=== PATIENT | male | born 1960 | race Caucasian/White ===

== ENCOUNTER 2025-02-11 18:01 | Inpatient (IN) | payer MEDICAID, OTHER ==
[~2025-02-11] VITALS: Ht 182.9 cm; Wt 68.2 kg
[2025-02-11] MEDS: IPRATROPIUM BROM 0.5 MG/2.5ML INH SOL NEB ONE (19:04)
[2025-02-11] MEDS: ALBUTEROL SULF 2.5 MG/0.5ML(0.5%) NEB SOLN NEB ONE (19:04)
--- NOTE | 2025-02-11 19:05 | ED.PDOC ---
HPI Comments 64-year-old male who came to ER via EMS for shortness of breath. He does have history of hypertension, diabetes, congestive heart failure on home oxygen at 2 L/min. Coming in for worsening abdominal distention and bipedal edema. Went to [facility] however abdominal paracentesis was not done. Worsening of symptoms, associated with shortness of breath, orthopnea, cyanosis, and generalized weakness. On scene patient was saturating 80% on room air. 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 Allergies: Coded Allergies: NO KNOWN ALLERGIES (Unverified , 02/11/25) Information Source: Patient, Emergency Med Personnel Mode of Arrival: EMS Severity: Moderate Past Medical History PAST MEDICAL HISTORY: CHF, DM, HTN Surgical History: Denies all surgeries Family History Family History: Reviewed,noncontributory to illness Social History Smoker: Non-Smoker Alcohol: Denies ETOH Use Drugs: Denies Drug Use Lives In: Home Constitutional: reports: weakness; denies: chills, diaphoresis, fatigue, fever, malaise, sweats, others EENTM: denies: blurred vision, double vision, ear bleeding, ear discharge, ear drainage, ear pain, ear ringing, eye pain, eye redness, hearing loss, mouth pain, mouth swelling, nasal discharge, nose bleeding, nose congestion, nose pain, photophobia, tearing, throat pain, throat swelling, voice changes, others Respiratory: reports: SOB at rest, shortness of breath, SOB with excertion; denies: cough, hemoptysis, orthopnea, stridor, wheezing, others Cardiovascular: reports: edema; denies: chest pain, dizzy spells, diaphoresis, Dyspnea on exertion, irregular heart beat, left arm pain, lightheadedness, palpitations, PND, syncope, others Gastrointestinal: reports: abdomen distended, abdominal pain; denies: blood streaked bowels, constipated, diarrhea, dysphagia, difficulty swallowing, hematemesis, melena, nausea, poor appetite, poor fluid intake, rectal bleeding, rectal pain, vomiting, others Genitourinary: denies: burning, dysuria, flank pain, frequency, hematuria, incontinence, penile discharge, penile sore, pain, testicle pain, testicle swelling, urgency, others Neurological: denies: dizziness, fainting, headache, left sided numbness, left sided weakness, numbness, paresthesia, pre-existing deficit, right sided numbness, right sided weakness, seizure, speech problems, tingling, tremors, weakness, others Musculoskeletal: denies: back pain, gout, joint pain, joint swelling, muscle pain, muscle stiffness, neck pain, others Integumetry: denies: bruises, change in color, change in hair/nails, dryness, laceration, lesions, lumps, rash, wounds, others Allergic/Immunocompromised: denies: Difficulty Healing, Frequent Infections, Hives, Itching, others Hematologic/Lymphatic: denies: anemia, blood clots, easy bleeding, easy bruising, swollen glands, others Endocrine: denies: excessive hunger, excessive sweating, excessive thirst, excessive urination, flushing, intolerance to cold, intolerance to heat, unexplained weight gain, unexplained weight loss, others Psychiatric: denies: anxiety, bipolar disorder, depression, hopeless, panic disorder, schizophrenia, sleepless, suicidal, others Physical Exam General Appearance: No Apparent Distress, Normal HEENT: Normal ENT Inspection, Pharynx Normal, TMs Normal Neck: Full Range of Motion, Non-Tender, Normal, Normal Inspection Respiratory: Chest Non-Tender, Lungs Clear, No Accessory Muscle Use, No Respiratory Distress, Normal Breath Sounds Cardiovascular: No Edema, No JVD, No Murmur, No Gallop, Normal Peripheral Pulses, Regular Rate/Rhythm Breast Exam: Deferred Gastrointestinal: No Organomegaly, Non Tender, No Pulsatile Mass, Normal Bowel Sounds, Soft Genitalia: Deferred Pelvic: Deferred Rectal: Deferred Extremities: No calf tenderness, Normal capillary refill, Normal inspection, Normal range of motion, Non-tender, No pedal edema Musculoskeletal : Apperance: Normal 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 Was a procedure done?: No CP Differential Dx Differential Diagnosis: Angina, Anxiety / Panic Attack, Electrolyte Disorder Differential Diagnosis: CHF Differential Diagnosis: Angina, Chest Wall Pain, Costochondritis, Myocardial Infarction X-Ray, Labs, Meds, VS Vital Signs Date Time Temp Pulse Resp B/P (MAP) Pulse Ox O2 Delivery O2 Flow Rate FiO2 02/11/25 20:53 117/81 02/11/25 19:30 97.9 87 19 122/74 (90) 94 97.9 02/11/25 19:30 87 19 94 Nasal Cannula* 3 32 02/11/25 19:04 20 98 Nasal Cannula* 3 32 02/11/25 18:18 99 02/11/25 18:09 98.1 84 26 126/74 96 98.1 Lab Test 02/11/25 20:39 02/11/25 19:38 02/11/25 18:54 02/11/25 18:53 Range/Units Lactic Acid Level Pending 2.4 *H 0.4-2.0 mmol/L Troponin I High Sensitivity 45 43 </=54 ng/L Blood Gas Specimen Type Venous Blood Gas Sample Site Vbg - n/a Blood Gas Patient Temperature 37.0 Arterial Blood Date Drawn [id number] Charles Test N/a Venous Blood pH 7.355 7.320-7.430 Venous Blood pCO2 at Patient Temp 47.3 38.0-54.0 mmHg Venous Blood pO2 at Patient Temp < 36.5 23.0-48.0 mmHg Venous Blood HCO3 25.8 22.0-29.0 mmol/L Venous Blood Base Excess -0.2 -2.0-3.0 mmol/L Blood Gas Liter Flow 3.00 Blood Gas Modality Nasal cannula FiO2 % 32.0 White Blood Count 8.9 4.4-10.8 10^3/uL Red Blood Count 4.32 L 4.5-5.90 10^6/uL Hemoglobin 13.5 13.5-17.5 g/dL Hematocrit 40.6 L 41.0-53.0 % Mean Corpuscular Volume 93.9 80.0-100.0 fL Mean Corpuscular Hemoglobin 31.4 28.0-32.0 pg Mean Corpuscular Hemoglobin Concent 33.4 32.0-36.0 g/dL Red Cell Distribution Width 15.8 H 11.8-14.3 % Platelet Count 197 140-450 10^3/uL Mean Platelet Volume 9.2 6.9-10.8 fL Neutrophils (%) (Auto) 82.2 H 37.0-80.0 % Lymphocytes (%) (Auto) 7.1 L 10.0-50.0 % Monocytes (%) (Auto) 9.7 0.0-12.0 % Eosinophils (%) (Auto) 0.7 0.0-7.0 % Basophils (%) (Auto) 0.3 0.0-2.0 % Neutrophils # (Auto) 7.3 1.6-8.6 10 ^3/uL Lymphocytes # (Auto) 0.6 0.4-5.4 10 ^3/uL Monocytes # (Auto) 0.9 0-1.3 10 ^3/uL Eosinophils # (Auto) 0.1 0-0.8 10 ^3/uL Basophils # (Auto) 0 0-0.2 10 ^3/uL Nucleated Red Blood Cells 0.1 % Prothrombin Time 13.6 H 9.3-11.8 sec Prothrombin Time INR 1.32 H 0.9-1.15 Activated Partial Thromboplast Time 30.8 24.5-34.5 SEC Sodium Level 137 136-145 mmol/L Potassium Level 4.6 3.5-5.1 mmol/L Chloride Level 104 98-107 mmol/L Carbon Dioxide Level 26 20-31 mmol/L Anion Gap 7 5-15 Blood Urea Nitrogen 37 H 9-23 mg/dL Creatinine 1.39 H 0.700-1.30 mg/dL Glomerular Filtration Rate Calc 57 >90 mL/min BUN/Creatinine Ratio 26.6 H 10.0-20.0 Serum Glucose 102 74-106 mg/dL Calcium Level 8.2 L 8.7-10.4 mg/dL Magnesium Level 2.5 1.6-2.6 mg/dL Total Bilirubin 1.7 H 0.2-1.0 mg/dL Aspartate Amino Transferase (AST) 84 H 13-40 U/L Alanine Aminotransferase (ALT) 193 H 7-40 U/L Alkaline Phosphatase 152 H 46-116 U/L B-Type Natriuretic Peptide 1809.69 0-100 pg/mL Total Protein 6.3 5.7-8.2 g/dL Albumin 3.3 3.2-4.8 g/dL Current Medications Medications (Trade) Dose Ordered Sig/Geraldo Route Start Time Stop Time Status Last Admin Aspirin 162 mg ONCE ONCE PO 02/11/25 18:45 02/11/25 18:46 DC 02/11/25 20:53 Furosemide (Lasix Injection) 40 mg ONCE ONCE IV 02/11/25 18:45 02/11/25 18:46 DC 02/11/25 20:53 Albuterol (Ventolin Medneb) 5 mg ONCE ONCE NEB 02/11/25 18:45 02/11/25 18:46 DC 02/11/25 19:04 Ipratropium [place] (Atrovent Medneb) 0.5 mg ONCE ONCE NEB 02/11/25 18:45 02/11/25 18:46 DC 02/11/25 19:04 Time of 1ST Reevaluation: 18:45 Reevaluation 1ST: Unchanged Patient Education/Counseling: Diagnosis, Treatment Family Education/Counseling: No Family Present SEPSIS Sepsis Screen Date sepsis recognized/suspect: Feb 11, 2025 Time Sepsis recognized/suspect: 1808 Recent Procedure: No On Antibiotic Therapy: No Respiratory Rate >20: Yes Heart Rate >90: No Temp<36 C (96.8 F) or >38.3 C: No SBP <90 or MAP <65 mmHG: No New Acute Mental Status Change: No Is the patient on CPAP, BIPAP,: No Physician Orders Electrocardigram (02/11/25 18:14) Electrocardigram (02/11/25 19:14) Electrocardigram (02/11/25 21:14) Chest Portable (02/11/25 18:40) Venous Blood Gas (02/11/25 18:40) Blood Culture (02/11/25 18:40) Vital Signs Date Time Temp Pulse Resp B/P (MAP) Pulse Ox O2 Delivery O2 Flow Rate FiO2 02/11/25 20:53 117/81 02/11/25 19:30 97.9 87 19 122/74 (90) 94 97.9 02/11/25 19:30 87 19 94 Nasal Cannula* 3 32 02/11/25 19:04 20 98 Nasal Cannula* 3 32 02/11/25 18:18 99 02/11/25 18:09 98.1 84 26 126/74 96 98.1 Laboratory Tests Test 02/11/25 18:53 02/11/25 20:39 Lactic Acid Level 2.4 mmol/L (0.4-2.0) *H Pending White Blood Count 8.9 10^3/uL (4.4-10.8) Medications Medications Dose Ordered Sig/Geraldo Route Start Time Stop Time Status Last Admin Dose Admin Albuterol 5 mg ONCE ONCE NEB 02/11/25 18:45 02/11/25 18:46 DC 02/11/25 19:04 Aspirin 162 mg ONCE ONCE PO 02/11/25 18:45 02/11/25 18:46 DC 02/11/25 20:53 Furosemide 40 mg ONCE ONCE IV 02/11/25 18:45 02/11/25 18:46 DC 02/11/25 20:53 Ipratropium [place] 0.5 mg ONCE ONCE NEB 02/11/25 18:45 02/11/25 18:46 DC 02/11/25 19:04 Departure 1 Departure Time of Disposition: 20:55 Impression: Primary Impression: Respiratory failure with hypoxia Additional Impressions: COPD exacerbation Pneumonitis Congestive heart failure Acute renal injury Disposition: ADMITTED INPATIENT Admit to: Tele Condition: Guarded Discharged With: Self Comments 64-year-old male with a history of both COPD and CHF now with shortness of breath. Oxygen saturation was 89% on room air prior to arrival but per EMS. Patient was given Lasix and a breathing treatment. His lactic acid slightly elevated 2.4. He has acute renal injury with BUN creatinine 37 and 1.39. Patient was given then antibiotics Rocephin and azithromycin for pneumonitis. Patient will need to be admitted for supportive care and further workup Critical Care Note Critical Care Time?: Yes (35 min-critical care time only) Stability Stability form required: No Heart Score Heart Score: Heart Score Response (Comments) Value History Moderate Suspicious 1 EKG Repolarization Disturb 1 Age 45-64 1 Risk Factors >3 or Hx ASHD 2 Troponin Normal limit 0 Total 5 I personally scribed for ROD BANUELOS MD ([email or web address]) on 02/11/25 at 19:05. Electronically submitted by Philippe Chew ([email or web address]). ROD BANUELOS MD Feb 11, 2025 19:05
[2025-02-11 19:09] LABS: Hematocrit 40.6 % (41.0-53.0); Hemoglobin 13.5 g/dL (13.5-17.5); Mean Corpuscular Hemoglobin 31.4 pg (28.0-32.0); Mean Corpuscular Volume 93.9 fL (80.0-100.0); Nucleated Red Blood Cells % 0.1 %
[2025-02-11 19:24] LABS: INR 1.32 (0.9-1.15); Partial Thromboplastin Time 30.8 SEC (24.5-34.5); Prothrombin Time 13.6 sec (9.3-11.8)
[2025-02-11 19:25] LABS: Albumin 3.3 g/dL (3.2-4.8); Anion Gap 7 (5-15); BUN/Creatinine Ratio 26.6 (10.0-20.0); Carbon Dioxide 26 mmol/L (20-31); Chloride 104 mmol/L (98-107); Glucose 102 mg/dL (74-106); Magnesium 2.5 mg/dL (1.6-2.6); Potassium 4.6 mmol/L (3.5-5.1); Sodium 137 mmol/L (136-145); Total Protein 6.3 g/dL (5.7-8.2)
[2025-02-11 19:30] VITALS: PULSE 87; RESP 19; O2SAT 94
[2025-02-11 19:31] LABS: Alanine Aminotransferase 193 U/L (7-40); Alkaline Phosphatase 152 U/L (46-116); Bilirubin, Total 1.7 mg/dL (0.2-1.0); Blood Urea Nitrogen 37 mg/dL (9-23); Calcium 8.2 mg/dL (8.7-10.4)
[2025-02-11 19:44] LABS: Lactic Acid w/Reflex 2.4 mmol/L (0.4-2.0)
--- NOTE | 2025-02-11 20:12 | DVH ---
CHEST RADIOGRAPH Indication: SOB Technique: Single frontal view of the chest was obtained Comparison: None FINDINGS: Lines and Tubes: None Lungs: Increased Airspace disease right lower lobe with small right pleural effusion. Pleura: No effusion. No pneumothorax. Cardiomediastinal contours: Cardiomegaly Bones: No acute osseous abnormality. IMPRESSION: 1. No acute cardiopulmonary disease. 2. Findings may represent pneumonia although can not entirely exclude congestive failure.
[2025-02-11] MEDS: FUROSEMIDE 40 MG/4 ML VIAL IV ONE (20:53)
[2025-02-11] MEDS: MORPHINE SULFATE 4 MG/ML SYR/VIAL IV ONE ×2 (21:03→21:04)
[2025-02-11] MEDS: AZITHROMYCIN 500MG/250ML 250 ML IV ONE (21:09)
[2025-02-11] MEDS ORDERED: MORPHINE SULFATE INJ 2 MG/ml SYRG IV PRN (22:15)
[2025-02-11] MEDS ORDERED: NITROGLYCERIN 0.4 MG SL TAB SL PRN (22:15)
[2025-02-11] MEDS ORDERED: ONDANSETRON HCL 4 MG/2 ML VIAL IV PRN (22:15)
[2025-02-11] MEDS ORDERED: DOCUSATE SOD 100 MG CAP PO PRN (22:15)
--- NOTE | 2025-02-11 22:28 | DVHHP2 ---
History of Present Illness Reason for Visit: Acute respiratory distress with hypoxia History of Present Illness The patient is a 64-year-old male with past medical history of CHF, hypertension, and diabetes mellitus who presented to [facility] ED with complaint of abdominal distention. Patient reports that he has been experiencing abdominal distention associated with shortness of breaths, bipedal edema, orthopnea, cyanosis, generalized weakness, getting worse that prompted this visit. Patient was seen at [facility] for similar symptoms however abdominal paracentesis was not done. Patient was seen and evaluated in the ED, laboratory data shows WBC 6.9, platelets 197, sodium 137, potassium 4.6, BUN 37, creatinine 1.39, GFR 57, glucose 102, calcium 8.2, BNP 1809.69, lactic acid 2.1, total bilirubin 1.7, AST 84, ALT 193, alkaline phos 152, troponin 43, blood pressure 106/81, heart rate 74, temperature 97.9 F, O2 saturation 94% on oxygen. Chest x-ray revealing pneumonia although can not entirely exclude congestive failure, no acute cardiopulmonary disease. Patient was started on IV Lasix, please see medication orders section in the computer. On my assessment, patient denied chest pain, no headache, dizziness, diaphoresis, currently on oxygen, no diarrhea, nausea, vomiting, fever, no chills. Patient was admitted for further evaluation and medical management. Past Medical History CHF, DM, HTN Past Surgical History Denies all surgeries Family History Reviewed, noncontributory to the management of this case. Past Social History The patient lives at home, denies smoking, alcohol or illicit drugs abuse. Review of Systems Constitutional: Yes: Weakness; No: Fever, Chills, Sweats, Malaise, Other Eyes: No: Pain, Vision change, Conjunctivae inflammation, Eyelid inflammation, Other, Redness ENT: No: Ear pain, Ear discharge, Nose pain, Nose discharge, Nose congestion, Mouth pain, Mouth swelling, Throat pain, Throat swelling, Other Respiratory: Shortness of breath, SOB with excertion, Other (SOB at rest); No: Cough, Dry, Wheezing, Hemoptysis, Pleuritic Pain, Sputum, Wheezing Cardiovascular: No: Chest Pain, Palpitations, Orthopnea, Paroxysmal Noc. Dyspnea, Edema, Lt Headedness, Other Gastrointestinal: Abdominal Pain, Other (Abdominal distention); No: Nausea, Vomiting, Diarrhea, Constipation, Melena, Hematochezia Genitourinary: No Dysuria, No Frequency, No Incontinence, No Hematuria, No Retention, No Other Musculoskeletal: No: other, neck pain, shoulder pain, arm pain, back pain, hand pain, leg pain, foot pain Skin: Other (Lower extremity open wounds); No: Rash, Lesions, Jaundice, Bruising Neurological: No: Weakness, Numbness, Incoordination, Change in speech, Confusion, Seizures, Other Allergies: Coded Allergies: NO KNOWN ALLERGIES (Unverified , 02/11/25) Exam Vital Signs Vital Signs Date Time Temp Pulse Resp B/P (MAP) Pulse Ox O2 Delivery O2 Flow Rate FiO2 02/11/25 21:33 73 22 106/81 02/11/25 19:30 97.9 94 97.9 02/11/25 19:30 Nasal Cannula* 3 32 General Appearance: Alert, Oriented X3, Cooperative, No acute distress HEENT: Atraumatic, PERRLA, EOMI, Mucous membr. moist/pink Respiratory: Normal air movement, Other (Diminished breath sounds) Cardiovascular: Regular rate, Normal S1, Normal S2, No murmurs Abdominal: Normal bowel sounds, Soft, No tenderness, No hepatospenomegaly, No masses Extremities: No clubbing, Normal pulses, No tenderness/swelling, Other (Lower extremity edema) Skin: No rashes, No significant lesion Neuro: Normal speech, Normal tone, Sensation intact, Cranial nerves 3-12 NL, Reflexes 2+, Other (Generalized weakness) Psych/Mental Status: Mental status NL, Mood NL Labs/Xrays Labs Test 02/11/25 20:39 02/11/25 19:38 02/11/25 18:54 02/11/25 18:53 Range/Units Lactic Acid Level 2.1 *H 0.4-2.0 mmol/L Troponin I High Sensitivity 45 </=54 ng/L Blood Gas Specimen Type Venous Blood Gas Sample Site Vbg - n/a Blood Gas Patient Temperature 37.0 Arterial Blood Date Drawn [id number] Charles Test N/a Venous Blood pH 7.355 7.320-7.430 Venous Blood pCO2 at Patient Temp 47.3 38.0-54.0 mmHg Venous Blood pO2 at Patient Temp < 36.5 23.0-48.0 mmHg Venous Blood HCO3 25.8 22.0-29.0 mmol/L Venous Blood Base Excess -0.2 -2.0-3.0 mmol/L Blood Gas Liter Flow 3.00 Blood Gas Modality Nasal cannula FiO2 % 32.0 White Blood Count 8.9 4.4-10.8 10^3/uL Red Blood Count 4.32 L 4.5-5.90 10^6/uL Hemoglobin 13.5 13.5-17.5 g/dL Hematocrit 40.6 L 41.0-53.0 % Mean Corpuscular Volume 93.9 80.0-100.0 fL Mean Corpuscular Hemoglobin 31.4 28.0-32.0 pg Mean Corpuscular Hemoglobin Concent 33.4 32.0-36.0 g/dL Red Cell Distribution Width 15.8 H 11.8-14.3 % Platelet Count 197 140-450 10^3/uL Mean Platelet Volume 9.2 6.9-10.8 fL Neutrophils (%) (Auto) 82.2 H 37.0-80.0 % Lymphocytes (%) (Auto) 7.1 L 10.0-50.0 % Monocytes (%) (Auto) 9.7 0.0-12.0 % Eosinophils (%) (Auto) 0.7 0.0-7.0 % Basophils (%) (Auto) 0.3 0.0-2.0 % Neutrophils # (Auto) 7.3 1.6-8.6 10 ^3/uL Lymphocytes # (Auto) 0.6 0.4-5.4 10 ^3/uL Monocytes # (Auto) 0.9 0-1.3 10 ^3/uL Eosinophils # (Auto) 0.1 0-0.8 10 ^3/uL Basophils # (Auto) 0 0-0.2 10 ^3/uL Nucleated Red Blood Cells 0.1 % Prothrombin Time 13.6 H 9.3-11.8 sec Prothrombin Time INR 1.32 H 0.9-1.15 Activated Partial Thromboplast Time 30.8 24.5-34.5 SEC Sodium Level 137 136-145 mmol/L Potassium Level 4.6 3.5-5.1 mmol/L Chloride Level 104 98-107 mmol/L Carbon Dioxide Level 26 20-31 mmol/L Anion Gap 7 5-15 Blood Urea Nitrogen 37 H 9-23 mg/dL Creatinine 1.39 H 0.700-1.30 mg/dL Glomerular Filtration Rate Calc 57 >90 mL/min BUN/Creatinine Ratio 26.6 H 10.0-20.0 Serum Glucose 102 74-106 mg/dL Calcium Level 8.2 L 8.7-10.4 mg/dL Magnesium Level 2.5 1.6-2.6 mg/dL Total Bilirubin 1.7 H 0.2-1.0 mg/dL Aspartate Amino Transferase (AST) 84 H 13-40 U/L Alanine Aminotransferase (ALT) 193 H 7-40 U/L Alkaline Phosphatase 152 H 46-116 U/L B-Type Natriuretic Peptide 1809.69 0-100 pg/mL Total Protein 6.3 5.7-8.2 g/dL Albumin 3.3 3.2-4.8 g/dL PATIENT: SHENG BELTRAN ACCT: [id number] UNIT: [id number] : 1960 LOC: ER ROOM / BED: / AGE / SEX: 64 / M ADM STATUS: REG ER SERVICE 39 ORDERING PHYSICIAN: ROD BANUELOS MD PROCEDURE(s): CXRP - CHEST PORTABLE REASON: SOB ORDER NUMBER(s): [id number], ACCESSION NUMBER(s): [id number] CHEST RADIOGRAPH Indication: SOB Technique: Single frontal view of the chest was obtained Comparison: None FINDINGS: Lines and Tubes: None Lungs: Increased Airspace disease right lower lobe with small right pleural effusion. Pleura: No effusion. No pneumothorax. Cardiomediastinal contours: Cardiomegaly Bones: No acute osseous abnormality. IMPRESSION: 1. No acute cardiopulmonary disease. 2. Findings may represent pneumonia although can not entirely exclude congestive failure. SEPSIS Sepsis Screen Date sepsis recognized/suspect: Feb 11, 2025 Time Sepsis recognized/suspect: 1947 Recent Procedure: No On Antibiotic Therapy: No Respiratory Rate >20: No Heart Rate >90: No Temp<36 C (96.8 F) or >38.3 C: No SBP <90 or MAP <65 mmHG: No New Acute Mental Status Change: No Is the patient on CPAP, BIPAP,: No Physician Orders Electrocardigram (02/11/25 18:14) Electrocardigram (02/11/25 19:14) Electrocardigram (02/11/25 21:14) Chest Portable (02/11/25 18:40) Venous Blood Gas (02/11/25 18:40) Blood Culture (02/11/25 18:40) Azithromycin 500mg/250ml (Zithromax 500m (02/11/25 21:00) Aspirin Chewable Tablet (02/12/25 10:00) Carvedilol Tablet (Coreg Tablet) (02/12/25 10:00) Azithromycin 500mg/250ml (Zithromax 500m (02/12/25 10:00) Ceftriaxone Ivpb Rocephin (02/12/25 09:00) Albuterol Medneb (Ventolin Medneb) (02/11/25 22:15) Ipratropium Medneb (Atrovent Medneb) (02/11/25 22:15) Furosemide Injection (Lasix Injection) (02/12/25 10:00) Glucose Blood (Accu-Chek Comfort Curve T (02/12/25 07:00) Mild Sliding Scale (02/12/25 07:00) Dextrose 50% Syringe (02/11/25 22:15) Admit (02/11/25 22:15) Allergies (02/11/25 22:15) Code Status (02/11/25 22:15) Sodium Chloride Lock (Saline Lock Ns) (02/12/25 06:00) Oxygen Per Hour (02/11/25 22:15) Hydrocodone-Acet 5/325mg Tab ([place] 5/32 (02/11/25 22:15) Ondansetron Hcl (Zofran) (02/11/25 22:15) Docusate Sodium Capsule (Colace Capsule) (02/11/25 22:15) Complete Blood Count (02/12/25 04:00) Comprehensive Metabolic Panel (02/12/25 04:00) Cardiac Diet-2gna,Lofat,Lochol (02/12/25 Breakfast) Echo 2d Mode Cardiac Dop (02/11/25 22:15) Condition: Serious (02/11/25 22:15) Acetaminophen Tablet (Tylenol Tablet) (02/11/25 22:15) Bedrest With Bathroom Privileg (02/11/25 22:15) Maintain Bed Rest (02/11/25 22:15) Sequential Compression Device (02/11/25 ) Nitroglycerin Sublingual (Ntrostat Subli (02/11/25 22:15) Morphine Sulfate Injection (02/11/25 22:15) Stat Ekg For Chest Pain (02/11/25 22:15) Notify Of Changes From Base (02/11/25 22:15) Cut Tobacco Bulker For 24 Hours (02/11/25 22:15) Emergency Dysrhythmia Protocol (02/11/25 22:15) Rhythm Strips Once Every Shift (02/11/25 22:15) Oxygen By Nasal Cannula (02/11/25 22:15) Tamsulosin Hydrochloride (Flomax) (02/12/25 18:00) Vital Signs Date Time Temp Pulse Resp B/P (MAP) Pulse Ox O2 Delivery O2 Flow Rate FiO2 02/11/25 21:33 73 22 106/81 02/11/25 21:03 81 19 117/81 02/11/25 20:53 117/81 02/11/25 19:30 97.9 87 19 122/74 (90) 94 97.9 02/11/25 19:30 87 19 94 Nasal Cannula* 3 32 02/11/25 19:04 20 98 Nasal Cannula* 3 32 02/11/25 18:18 99 02/11/25 18:09 98.1 84 26 126/74 96 98.1 Laboratory Tests Test 02/11/25 18:53 02/11/25 20:39 Lactic Acid Level 2.4 mmol/L (0.4-2.0) *H 2.1 mmol/L (0.4-2.0) *H White Blood Count 8.9 10^3/uL (4.4-10.8) Medications Medications Dose Ordered Sig/Geraldo Route Start Time Stop Time Status Last Admin Dose Admin Albuterol 5 mg ONCE ONCE NEB 02/11/25 18:45 02/11/25 18:46 DC 02/11/25 19:04 5 MG Aspirin 162 mg ONCE ONCE PO 02/11/25 18:45 02/11/25 18:46 DC 02/11/25 20:53 162 MG Azithromycin 250 ml @ 125 mls/hr ONCE ONCE IV 02/11/25 21:00 02/11/25 22:59 02/11/25 21:09 125 MLS/HR Ceftriaxone Sodium 50 ml @ 100 mls/hr ONCE ONCE IV 02/11/25 21:00 02/11/25 21:29 DC 02/11/25 21:03 100 MLS/HR Furosemide 40 mg ONCE ONCE IV 02/11/25 18:45 02/11/25 18:46 DC 02/11/25 20:53 40 MG Ipratropium [place] 0.5 mg ONCE ONCE NEB 02/11/25 18:45 02/11/25 18:46 DC 02/11/25 19:04 0.5 MG Morphine Sulfate 4 mg ONCE ONCE IV 02/11/25 21:00 02/11/25 21:01 DC 02/11/25 21:03 4 MG Assessment/Plan Assessment/Plan Acute respiratory failure with hypoxia Pneumonitis Congestive heart failure Acute renal injury COPD with acute exacerbation Elevated liver enzymes Generalized weakness Plan 1. Admit to telemetry unit 2. Breathing treatment 3. Pain control management 4. IV antibiotic management 5. Management of fluids and electrolytes 6. Consultation for hospitalist/wound care 7. Diagnostic test chest x-ray 8. DVT prophylaxis-on aspirin 9. Repeat labs CBC, CMP in a.m. 10. Home medication reviewed and reconciled 11. Continue with current medical management 12. Treatment plan discussed with patient and RN. Patient verbalized understanding. Plan discussed with: Patient, Other (RN) My Orders Orders - LORRI NATARAJAN DNP Procedure Category Date Status Time Aspirin Chewable PHA 02/12/25 Verified Tablet 10:00 Carvedilol Tablet PHA 02/12/25 Verified (Coreg Tablet) 10:00 Azithromycin PHA 02/12/25 Verified 500mg/250ml 10:00 Ceftriaxone Ivpb PHA 02/12/25 Verified Rocephin 09:00 Albuterol Medneb PHA 02/11/25 Verified (Ventolin Medneb) 22:15 Ipratropium Medneb PHA 02/11/25 Verified (Atrovent Medneb) 22:15 Furosemide Injection PHA 02/12/25 Verified (Lasix Injection) 10:00 Glucose Blood PHA 02/12/25 Verified (Accu-Chek Comfort 07:00 Mild Sliding Scale PHA 02/12/25 Verified 07:00 Dextrose 50% Syringe PHA 02/11/25 Verified 22:15 Admit ADMIT 02/11/25 Verified 22:15 Allergies ANTONY 02/11/25 Verified 22:15 Code Status CODE 02/11/25 Verified 22:15 Sodium Chloride Lock [facility] 02/12/25 Verified (Saline Lock Ns) 06:00 Oxygen Per Hour RT 02/11/25 Verified 22:15 Hydrocodone-Acet [facility] 02/11/25 Verified 5/325mg Tab ([place] 22:15 Ondansetron Hcl [facility] 02/11/25 Verified (Zofran) 22:15 Docusate [address]odium [facility] 02/11/25 Verified Capsule (Colace 22:15 Complete Blood Count LAB 02/12/25 Verified 04:00 Comprehensive LAB 02/12/25 Verified Metabolic Panel 04:00 Cardiac DIET 02/12/25 Verified Diet-2gna,Lofat,Lochol Breakfast Echo 2d Mode Cardiac US 02/11/25 Verified DOP 22:15 Condition: Serious [facility] 02/11/25 Verified 22:15 Acetaminophen Tablet [facility] 02/11/25 Verified (Tylenol Tablet) 22:15 Bedrest With Bathroom [facility] 02/11/25 Verified Privileg 22:15 Maintain Bed Rest [facility] 02/11/25 Verified 22:15 Sequential [facility] 02/11/25 Verified Compression Device Nitroglycerin [facility] 02/11/25 Verified Sublingual (Ntrostat 22:15 Morphine Sulfate [facility] 02/11/25 Verified Injection 22:15 Stat Ekg For Chest [facility] 02/11/25 Verified Pain 22:15 Notify Md Of Changes [facility] 02/11/25 Verified From Base 22:15 Cut Tobacco Bulker For [facility] 02/11/25 Verified 24 Hours 22:15 Emergency Dysrhythmia [facility] 02/11/25 Verified Protocol 22:15 Rhythm Strips Once [facility] 02/11/25 Verified Every Shift 22:15 Oxygen By Nasal 02/11/25 Verified Cannula 22:[address] [facility] 02/12/25 Verified Hydrochloride (Flomax) 18:00 Problem List: (1) Acute respiratory failure with hypoxia (2) Pneumonitis (3) Congestive heart failure (4) Acute renal injury (5) COPD with acute exacerbation (6) Elevated liver enzymes (7) Generalized weakness Date of Service: Feb 11, 2025 Billing Provider: LORRI NATARAJAN DNP Common Visit Codes: [id number] INP/OBS CARE (HIGH) LORRI NATARAJAN DNP Feb 11, 2025 22:28
[2025-02-11] MEDS: ROCURONIUM 10MG/ML 10ML VIAL IV ONE ×2 (22:35→22:36)
[2025-02-11] MEDS: ETOMIDATE (2MG/ML) 20ML VIAL IV ONE ×2 (22:35→22:36)
[2025-02-11 23:05] VITALS: BP 106/81; PULSE 89; RESP 20; TEMP 97.9; O2SAT 99
[2025-02-11 23:30] VITALS: PULSE 99; RESP 20; O2SAT 99
[2025-02-11] MEDS: IPRATROPIUM BROM 0.5 MG/2.5ML INH SOL NEB PRN (23:30)
[2025-02-11] MEDS: ALBUTEROL SULF 2.5 MG/0.5ML(0.5%) NEB SOLN NEB PRN (23:30)
[2025-02-11 23:38] VITALS: PULSE 97; RESP 20; O2SAT 100
[2025-02-12 02:15] LABS: Hematocrit 43.9 % (41.0-53.0); Hemoglobin 14.3 g/dL (13.5-17.5); Mean Corpuscular Hemoglobin 31.1 pg (28.0-32.0); Mean Corpuscular Volume 95.3 fL (80.0-100.0); Nucleated Red Blood Cells % 0.1 %
[2025-02-12 02:53] LABS: Albumin 3.4 g/dL (3.2-4.8); Anion Gap 9 (5-15); BUN/Creatinine Ratio 30.8 (10.0-20.0); Carbon Dioxide 26 mmol/L (20-31); Chloride 101 mmol/L (98-107); Glucose 104 mg/dL (74-106); Potassium 4.7 mmol/L (3.5-5.1); Total Protein 6.3 g/dL (5.7-8.2)
[2025-02-12 02:55] LABS: Alanine Aminotransferase 181 U/L (7-40); Alkaline Phosphatase 153 U/L (46-116); Bilirubin, Total 2.0 mg/dL (0.2-1.0); Blood Urea Nitrogen 41 mg/dL (9-23); Calcium 8.3 mg/dL (8.7-10.4); Sodium 136 mmol/L (136-145)
[2025-02-12] MEDS: HYDROcodone-ACET 5/325MG TAB PO PRN (03:29)
[2025-02-12] MEDS: SODIUM CHLOR 0.9% PF (SALINE LOCK) 10ML VIAL/SYR IV SCH (06:02)
[2025-02-12 06:48] VITALS: O2SAT 98
[2025-02-12] MEDS: InsuLIN REG 1unit/0.01ml Soln (100units/ml) SC SCH (06:57)
[2025-02-12] MEDS: ACCU-CHEK COMFORT CURVE STRIP VI SCH (06:58)
[2025-02-12 07:15] VITALS: PULSE 80; RESP 15; O2SAT 100
[2025-02-12] MEDS: CARVEDILOL 3.125 MG TAB PO SCH (10:35)
[2025-02-12] MEDS: FAMOTIDINE (10MG/ML) 2ML VL IV SCH (10:37)
[2025-02-12] MEDS: FUROSEMIDE 40 MG/4 ML VIAL IV SCH (10:37)
--- NOTE | 2025-02-12 12:23 | DVHPN2 ---
Subjective The patient is seen and examined at bedside. Still had shortness for breath and wheezing Reviewed: Care Plan, H&P, Labs, Medications, Previous Orders, Radiology Changes from previous H/P or p: No Changes Eyes: No Pain, No Vision change, No Conjunctivae inflammation, No Eyelid inflammation, No Other, No Redness ENT: No Ear pain, No Ear discharge, No Nose pain, No Nose discharge, No Nose congestion, No Mouth pain, No Mouth swelling, No Throat pain, No Throat swelling, No Other Cardiovascular: No Chest Pain, No Palpitations, No Orthopnea, No Paroxysmal Noc. Dyspnea, No Edema, No Lt Headedness, No Other Respiratory: No Cough, No Dry; Shortness of breath, SOB with excertion; No Wheezing, No Hemoptysis, No Pleuritic Pain, No Sputum; Other (SOB at rest) Gastrointestinal: No Nausea, No Vomiting; Abdominal Pain; No Diarrhea, No Constipation, No Melena, No Hematochezia; Other (Abdominal distention) Genitourinary: No Dysuria, No Frequency, No Incontinence, No Hematuria, No Retention, No Other Musculoskeletal: No other, No neck pain, No shoulder pain, No arm pain, No back pain, No hand pain, No leg pain, No foot pain Skin: No Rash, No Lesions, No Jaundice, No Bruising; Other (Lower extremity open wounds) Objective Vitals Vital Signs Date Time Temp Pulse Resp B/P (MAP) Pulse Ox O2 Delivery O2 Flow Rate FiO2 02/12/25 10:47 98.2 80 16 122/91 (101) 99 98.2 02/12/25 07:15 Nasal Cannula* 4 36 Intake/Output Intake and Output 02/12/25 07:00 Intake Total 325 ml Output Total 400 ml Balance -75 ml Intake Oral 100 ml IV Total 225 ml Output Urine Total 400 ml General Appearance: Alert, Oriented X3, Cooperative, No acute distress HEENT: Atraumatic, PERRLA, EOMI, Mucous membr. moist/pink Neck: Supple Lungs: Clear to auscultation, Normal air movement Cardiovascular: Regular rate, Normal S1, Normal S2, No murmurs, Gallops, Rubs Abdomen: Normal bowel sounds, Soft, No tenderness Neuro: Cranial nerves 3-12 NL Psych/Mental Status: Mental status NL Medications Current Medications Medications Dose Ordered Sig/Geraldo Route Start Time Stop Time Status Last Admin Dose Admin Carvedilol 3.125 mg Q12HR PO 02/12/25 10:00 02/12/25 10:35 3.125 MG Azithromycin 250 ml @ 125 mls/hr Q24H IV 02/12/25 21:00 Ceftriaxone Sodium 50 ml @ 100 mls/hr Q24H IV 02/12/25 21:00 Albuterol 2.5 mg Q4HPRN PRN NEB 02/11/25 22:15 02/11/25 23:30 2.5 MG Ipratropium [place] 0.5 mg Q4HPRN PRN NEB 02/11/25 22:15 02/11/25 23:30 0.5 MG Furosemide 40 mg DAILY IV 02/12/25 10:00 02/12/25 10:37 40 MG Diagnostic Test (Pha) 1 strip ACHS 02/12/25 07:00 02/12/25 06:58 1 STRIP Insulin Human Regular ACHS SC 02/12/25 07:00 Dextrose 50 ml UD PRN IV 02/11/25 22:15 Sodium Chloride 10 ml Q8HR IV 02/12/25 06:00 02/12/25 06:02 10 ML Acetaminophen/ Hydrocodone Bitart 1 tab Q4HP PRN PO 02/11/25 22:15 02/12/25 03:29 1 TAB Ondansetron HCl 4 mg Q4HP PRN IV 02/11/25 22:15 Docusate Sodium 100 mg BIDPRN PRN PO 02/11/25 22:15 Acetaminophen 650 mg Q6HP PRN PO 02/11/25 22:15 Nitroglycerin 0.4 mg Q5MINP PRN SL 02/11/25 22:15 Morphine Sulfate 2 mg Q30M PRN IV 02/11/25 22:15 Tamsulosin HCl 0.4 mg QPM PO 02/12/25 18:00 Aspirin 81 mg DAILY PO 02/12/25 10:00 02/12/25 10:35 81 MG Famotidine 20 mg DAILY IV 02/12/25 10:00 02/12/25 10:37 20 MG Laboratory Results Laboratory Tests 02/12/25 02:01 Chemistry Test 02/11/25 18:53 02/12/25 02:01 Albumin 3.3 g/dL (3.2-4.8) 3.4 g/dL (3.2-4.8) Calcium Level 8.2 mg/dL (8.7-10.4) L 8.3 mg/dL (8.7-10.4) L Magnesium Level 2.5 mg/dL (1.6-2.6) Total Protein 6.3 g/dL (5.7-8.2) 6.3 g/dL (5.7-8.2) Coagulation Test 02/11/25 18:53 Prothrombin Time 13.6 sec (9.3-11.8) H Prothrombin Time INR 1.32 (0.9-1.15) H Activated Partial Thromboplast Time 30.8 SEC (24.5-34.5) Cardiac Markers Test 02/11/25 18:53 B-Type Natriuretic Peptide 1809.69 pg/mL (0-100) LFT Test 02/11/25 18:53 02/12/25 02:01 Alanine Aminotransferase (ALT) 193 U/L (7-40) H 181 U/L (7-40) H Alkaline Phosphatase 152 U/L (46-116) H 153 U/L (46-116) H Aspartate Amino Transferase (AST) 84 U/L (13-40) H 74 U/L (13-40) H Total Bilirubin 1.7 mg/dL (0.2-1.0) H 2.0 mg/dL (0.2-1.0) H Blood Gas Results Test 02/11/25 18:54 FiO2 % 32.0 Labs and/or images reviewed: Labs reviewed by me Assessment/Plan Assessment/Plan Acute respiratory failure with hypoxia Pneumonia secondary to Gram-positive Gram-negative bacteria Congestive heart failure Acute renal injury COPD Elevated liver enzymes Generalized weakness Plan Continuing current management. Continuing with IV antibiotic Rocephin and Zithromax. Continuing with Lasix. We will monitor kidney function. Continuing with oxygen support to keep saturation oxygen above 92% This medical document was created using an electronic medical record system with [employer] direct computerized dictation system. Although this document has been carefully reviewed, there may still be some phonetic and typographical errors. These areas are purely typographical due to imperfections of the software programs, and do not reflect any compromise in the patient's medical care. Plan discussed with: Patient Date of Service: Feb 12, 2025 Billing Provider: RAYRAY CLINE MD Common Visit Codes: [id number] INP/OBS CARE(HIGH) RAYRAY CLINE MD Feb 12, 2025 12:23
--- NOTE | 2025-02-12 14:14 | DVHSR ---
APPROVED REPORT EXAM: Two-dimensional and M-mode echocardiogram with Doppler and color Doppler. Blood Pressure: 105/78 mmHg INDICATION CHF Exacerbation RISK FACTORS Height: 6', Weight: 176 DIMENSIONS LVDd 6.6 (3.8-5.7cm) LA (2D) 5.2 (1.9-4.0cm) Aortic Root 3.4 (2.0-3.7cm) LVDs 6.5 (2.5-4.0cm) LA (MM) (1.9-4.0cm) Aortic Cusp Exc 1.8 (1.5-2.0cm) EF (%) 5.0 (55-70%) Rt. Atrium 5.7 (1.9-4.0cm) Asc. Aorta cm IVSd 0.9 (0.7-1.1cm) RV (D) (1.8-2.4cm) PWd 1.0 (0.7-1.1cm) Mitral Valve Mitral Mitral Stenosis E wave 0.60m/s MV Mean GR. mmHg A wave 0.50m/s MV Peak GR. mmHg E/A ratio 1.2 2D MVA cm2 Aortic Valve Aortic Valve Aortic Stenosis V1 0.20m/s AO Mean GR. 1mmHg V2 0.70m/s AO Peak GR. 2mmHg LVOT Diameter 2.3 (1.8-2.4cm) Doppler ALEISHA 1.19cm2 AI P 1/2 Time 407.59ms Pulmonic Valve V2 0.30m/s Tricuspid Valve TR Velocity 1.90m/s RVSP 20mmHg Conclusion lvef <20% dilated end stage HF RV dysfunction biatrial enlargement mild MR could be worse moderate tricupsid regurg
[2025-02-12] MEDS: TAMSULOSIN HYDROCHLORIDE 0.4 MG CAP PO SCH (17:42)
[2025-02-12 19:30] VITALS: O2SAT 98
[2025-02-12] MEDS: AZITHROMYCIN 500MG/250ML 250 ML IV SCH (21:19)
--- NOTE | 2025-02-12 21:29 | DVHINCON2 ---
Date of service: Feb 12, 2025 Referring Physician Jeremy Hull Reason for Consultation Elevated liver tests History of Present Illness The patient is a 64-year-old male with past medical history of CHF, hypertension, and diabetes mellitus who presented to [facility] ED with complaint of abdominal distention. Patient reports that he has been experiencing abdominal distention associated with shortness of breaths, bipedal edema, orthopnea, cyanosis, generalized weakness, getting worse that prompted this visit. Patient was seen at [facility] for similar symptoms however abdominal paracentesis was not done. Chest x-ray revealing pneumonia although can not entirely exclude congestive failure, no acute cardiopulmonary disease. Patient was started on IV Lasix, GI was consulted because of elevated liver enzymes Past Medical History Past Medical History CHF, DM, HTN Past Surgical History Past Surgical History Denies all surgeries Allergies: Coded Allergies: NO KNOWN ALLERGIES (Unverified , 02/11/25) Current Medications Current Medications Medications (Trade) Dose Ordered Sig/Geraldo Route PRN Reason Start Time Stop Time Status Last Admin Aspirin 81 mg DAILY PO 02/12/25 10:00 02/11/25 22:32 DC Carvedilol (Coreg Tablet) 3.125 mg Q12HR PO 02/12/25 10:00 02/12/25 10:35 Azithromycin 250 ml @ 125 mls/hr Q24H IV 02/12/25 21:00 02/12/25 21:19 Ceftriaxone Sodium 50 ml @ 100 mls/hr Q24H IV 02/12/25 21:00 02/12/25 20:51 Albuterol (Ventolin Medneb) 2.5 mg Q4HPRN PRN NEB SHORTNESS OF BREATH 02/11/25 22:15 02/12/25 17:40 Ipratropium [place] (Atrovent Medneb) 0.5 mg Q4HPRN PRN NEB SHORTNESS OF BREATH 02/11/25 22:15 02/12/25 17:39 Furosemide (Lasix Injection) 40 mg DAILY IV 02/12/25 10:00 02/12/25 10:37 Diagnostic Test (Pha) (Accu-Chek Comfort Curve T) 1 strip ACHS 02/12/25 07:00 02/12/25 16:33 Insulin Human Regular (InsuLIN R) ACHS SC 02/12/25 07:00 02/12/25 12:40 Dextrose 50 ml UD PRN IV Blood Sugar LESS THAN 60 02/11/25 22:15 Sodium Chloride (Saline Lock Ns) 10 ml Q8HR IV 02/12/25 06:00 02/12/25 13:57 Acetaminophen/ Hydrocodone Bitart ([place] 5/325MG Tab) 1 tab Q4HP PRN PO MODERATE PAIN (4-6 PAIN SCALE) 02/11/25 22:15 02/12/25 03:29 Ondansetron HCl (Zofran) 4 mg Q4HP PRN IV NAUSEA / VOMITING 02/11/25 22:15 Docusate Sodium (Colace Capsule) 100 mg BIDPRN PRN PO FOR CONSTIPATION 02/11/25 22:15 Acetaminophen (Tylenol Tablet) 650 mg Q6HP PRN PO PAIN SCALE 1-3 OR TEMP>100.4 02/11/25 22:15 Nitroglycerin (Ntrostat Sublingual) 0.4 mg Q5MINP PRN SL FOR CHEST PAIN 02/11/25 22:15 Morphine Sulfate 2 mg Q30M PRN IV FOR CHEST PAIN 02/11/25 22:15 Tamsulosin HCl (Flomax) 0.4 mg QPM PO 02/12/25 18:00 02/12/25 17:42 Aspirin 81 mg DAILY PO 02/12/25 10:00 02/12/25 10:35 Famotidine (Pepcid Injection) 20 mg DAILY IV 02/12/25 10:00 02/12/25 10:37 Vital Signs Vital Signs Date Time Temp Pulse Resp B/P (MAP) Pulse Ox O2 Delivery O2 Flow Rate FiO2 02/12/25 20:00 97.9 76 20 117/88 (98) 97 97.9 02/12/25 19:30 Nasal Cannula* 6 44 Physical Exam General Appearance: Alert, Oriented X3, Cooperative, No acute distress HEENT: Atraumatic, PERRLA, EOMI, Mucous membr. moist/pink Respiratory: Normal air movement, Diminished breath sounds at bases Cardiovascular: Regular rate, Normal S1, Normal S2, No murmurs Abdominal: Normal bowel sounds, Soft, No tenderness, No hepatospenomegaly, No masses Extremities: No clubbing, Normal pulses, No tenderness/swelling, Other (Lower extremity edema) Psych/Mental Status: Mental status NL, Mood NL Labs/Diagnostic Data Labs Test 02/12/25 16:32 02/12/25 02:01 02/11/25 20:39 02/11/25 19:38 Range/Units POC Glucose 75 70-106 mg/dl White Blood Count 10.7 4.4-10.8 10^3/uL Red Blood Count 4.61 4.5-5.90 10^6/uL Hemoglobin 14.3 13.5-17.5 g/dL Hematocrit 43.9 41.0-53.0 % Mean Corpuscular Volume 95.3 80.0-100.0 fL Mean Corpuscular Hemoglobin 31.1 28.0-32.0 pg Mean Corpuscular Hemoglobin Concent 32.7 32.0-36.0 g/dL Red Cell Distribution Width 16.0 H 11.8-14.3 % Platelet Count 203 140-450 10^3/uL Mean Platelet Volume 9.4 6.9-10.8 fL Neutrophils (%) (Auto) 81.8 H 37.0-80.0 % Lymphocytes (%) (Auto) 6.7 L 10.0-50.0 % Monocytes (%) (Auto) 11.0 0.0-12.0 % Eosinophils (%) (Auto) 0.4 0.0-7.0 % Basophils (%) (Auto) 0.1 0.0-2.0 % Neutrophils # (Auto) 8.7 H 1.6-8.6 10 ^3/uL Lymphocytes # (Auto) 0.7 0.4-5.4 10 ^3/uL Monocytes # (Auto) 1.2 0-1.3 10 ^3/uL Eosinophils # (Auto) 0 0-0.8 10 ^3/uL Basophils # (Auto) 0 0-0.2 10 ^3/uL Nucleated Red Blood Cells 0.1 % Sodium Level 136 136-145 mmol/L Potassium Level 4.7 3.5-5.1 mmol/L Chloride Level 101 98-107 mmol/L Carbon Dioxide Level 26 20-31 mmol/L Anion Gap 9 5-15 Blood Urea Nitrogen 41 H 9-23 mg/dL Creatinine 1.33 H 0.700-1.30 mg/dL Glomerular Filtration Rate Calc 60 >90 mL/min BUN/Creatinine Ratio 30.8 H 10.0-20.0 Serum Glucose 104 74-106 mg/dL Calcium Level 8.3 L 8.7-10.4 mg/dL Total Bilirubin 2.0 H 0.2-1.0 mg/dL Aspartate Amino Transferase (AST) 74 H 13-40 U/L Alanine Aminotransferase (ALT) 181 H 7-40 U/L Alkaline Phosphatase 153 H 46-116 U/L Total Protein 6.3 5.7-8.2 g/dL Albumin 3.4 3.2-4.8 g/dL Lactic Acid Level 2.1 *H 0.4-2.0 mmol/L Troponin I High Sensitivity 45 </=54 ng/L Test 02/11/25 18:54 02/11/25 18:53 Range/Units Blood Gas Specimen Type Venous Blood Gas Sample Site Vbg - n/a Blood Gas Patient Temperature 37.0 Arterial Blood Date Drawn [id number] Charles Test N/a Venous Blood pH 7.355 7.320-7.430 Venous Blood pCO2 at Patient Temp 47.3 38.0-54.0 mmHg Venous Blood pO2 at Patient Temp < 36.5 23.0-48.0 mmHg Venous Blood HCO3 25.8 22.0-29.0 mmol/L Venous Blood Base Excess -0.2 -2.0-3.0 mmol/L Blood Gas Liter Flow 3.00 Blood Gas Modality Nasal cannula FiO2 % 32.0 Prothrombin Time 13.6 H 9.3-11.8 sec Prothrombin Time INR 1.32 H 0.9-1.15 Activated Partial Thromboplast Time 30.8 24.5-34.5 SEC Magnesium Level 2.5 1.6-2.6 mg/dL B-Type Natriuretic Peptide 1809.69 0-100 pg/mL Microbiology Date/Time Source Procedure Growth Status 02/11/25 19:38 Blood Blood Culture - Preliminary NO GROWTH AFTER 24 HOURS OF INCUBATION. Resulted Problems(with codes): (1) Generalized weakness (2) COPD with acute exacerbation (3) Elevated liver enzymes (4) Lactic acidosis (5) Acute renal injury Plan/Recommendation Plan Continue supportive care Check hepatitis panel and serum ferritin Check right upper quadrant ultrasound Repeat labs in a.m. Echo and Cardiology consult pending Plan discussed with: Patient NADINE SUTTON MD Feb 12, 2025 21:29
[2025-02-13] VITALS (74 sets, daily range): BP systolic 95–121; BP diastolic 66–91; PULSE 81–99; RESP 19–40; TEMP 98.8–100.4; O2SAT 96–100
[2025-02-13] MEDS: LORazepam 2MG/ML-1ML VIAL ONE (00:24)
[2025-02-13] MEDS: LORazepam 2MG/ML-1ML VIAL IV PRN (00:24)
--- NOTE | 2025-02-13 01:09 | DVH ---
INDICATION: elevated liver enzymes TECHNIQUE: Multiple real-time sonographic images were obtained of the right upper quadrant. COMPARISON: None FINDINGS: Liver: Normal in size measuring 13.9 cm with surface irregularity/nodular contour. Gallbladder: No stones, distention, wall thickening, or inflammatory changes. Wall is mildly thickened measuring 0.6 cm, likely reactive or secondary to patient's fluid status. CBD: Not well visualized. Pancreas: Obscured by overlying bowel gas. Right kidney: 10.1 cm. No stones or hydronephrosis. Ascites noted in all 4 quadrants. Bilateral pleural effusions. IMPRESSION: Heterogeneous appearing liver suggesting chronic liver disease.
[2025-02-13] MEDS: ETOMIDATE (2MG/ML) 20ML VIAL IV ONE ×2 (03:41→03:48)
[2025-02-13] MEDS: ROCURONIUM 10MG/ML 10ML VIAL IV ONE ×2 (03:41→03:48)
[2025-02-13] MEDS: PROPOFOL 100 ML IV ONE (03:49)
[2025-02-13 04:08] LABS: Base Excess -3.7 mmol/L (-2.0-3.0)
[2025-02-13 04:14] LABS: Base Excess -5.9 mmol/L (-2.0-3.0)
--- NOTE | 2025-02-13 04:17 | RESUS ---
CODE BLUE ASSESSSMENT History of Events History of Events: Patient was having respiratory distress. Patient was previously intubated and was given atropine, he became bradycardic and pulses were lost. Initial Information Location of Arrest: ER Arrest Witnessed: Yes CPR started initial time: 03:54 CPR started by whom: Hospital Staff Pre-Hospital Care: ACLS Type of arrest: Cardiac, Respiratory, Adult, Witnessed Spontaneous Respirations: Yes Pulse Present: Yes Airway Ventilation Breathing at Onset: Assisted Oxygen Delivery Method: Ambu-Bag Intubation Size: 8.0 cuffed Intubated by: Dr. Collier Intubated orally: Yes Tube secured at: 24 (lip) Cricoid pressure done: Yes Confirmation: Auscultation, Chest X-ray Circulation Circulation #1: Time: 03:54 Circulation Comment: CPR initiated Circulation #2: Time: 03:56 Circulation Comment: PEA Circulation #3: Time: 03:58 Circulation Comment: ROSC Procedure - IV Procedure - IV : IV Side: Left IV Location: Antecubital IV Catheter Type: Peripheral IV IV Gauge: 18 Medications & Response Medications and Responses #1: Medication Time: 03:53 ADULT Medications Given ADULT: Epinephrine 1 mg, Atropine 1 mg Route of Administration: IV Medication Comment: given pre code Medications and Responses #2: Medication Time: 03:56 ADULT Medications Given ADULT: Epinephrine 1 mg, Sodium Bacarbinate 50 meq Route of Administration: IV Medications and Responses #3: ADULT Medications Given ADULT: Epinephrine 1 mg, D50 (amp) Route of Administration: IV Heart Rate: 130 EKG Rhythm: Sinus Tachycardia Blood Pressure Systolic: 136 Blood Pressure Diastolic: 101 Nurses Notes [place] Coma Scale Eye Opening: None (1) [place] Coma Scale Verbal: None (1) [place] Coma Scale Motor: None (1) [place] Total: 3 Pupil Reaction: Sluggish Bedside Blood Glucose: 50 EKG Rhythm: Sinus Tachycardia Time Code Ended Time Code Ended: 03:58 Post Arrest Status: Awake, Ventilated Outcome of code: Successful Code Team Present: Amelia Ramirez RN, Mark RN, Andrew RN, Saul RN, Booker RT, Deo EMT, Liliam RN Post Resuscitation Neurologica Pupil Size: 4 Comment: equal round reactive to light ROSC Time of ROSC: 03:58 Pt Meets Criteria for Therapeu: LILIAM Elizabeth Feb 13, 2025 04:17
[2025-02-13] MEDS: NOREPINEPHRINE 8 MG/250ML KIT 250 ML IV ONE (04:19)
[2025-02-13] MEDS: NOREPINEPHRINE 8 MG/250ML KIT 250 ML IV SCH (04:20)
[2025-02-13] MEDS: PROPOFOL 100 ML IV SCH (05:06)
--- NOTE | 2025-02-13 05:17 | DVH ---
CHEST RADIOGRAPH Indication: intubation Technique: Single frontal view of the chest was obtained COMPARISON: XY CHEST PORTABLE on DOS: 02/11/25 FINDINGS: Lines and Tubes: Endotracheal tube, enteric catheter and right central venous catheter in satisfactory position. Lungs: Unchanged pulmonary vascular congestion. Pleura: Small right pleural effusion.No pneumothorax. Cardiomediastinal contours: Cardiomegaly. Bones: Unremarkable IMPRESSION: Lines and tubes in satisfactory position. No significant interval change.
[2025-02-13 06:45] LABS: Base Excess -4.1 mmol/L (-2.0-3.0)
[2025-02-13 06:52] LABS: Albumin 3.3 g/dL (3.2-4.8); Anion Gap 10 (5-15); BUN/Creatinine Ratio 24.0 (10.0-20.0); Carbon Dioxide 24 mmol/L (20-31); Chloride 100 mmol/L (98-107); Total Protein 6.5 g/dL (5.7-8.2)
[2025-02-13 07:24] LABS: Alanine Aminotransferase 183 U/L (7-40); Alkaline Phosphatase 179 U/L (46-116); Bilirubin, Total 2.4 mg/dL (0.2-1.0); Blood Urea Nitrogen 46 mg/dL (9-23); Calcium 8.2 mg/dL (8.7-10.4); Glucose 126 mg/dL (74-106); Sodium 134 mmol/L (136-145)
[2025-02-13 07:25] LABS: Potassium 6.0 mmol/L (3.5-5.1)
[2025-02-13] MEDS ORDERED: NOREPINEPHRINE BITARTRATE 16 MG in SODIUM CHL 0.9% 234 ML IV SCH (07:30)
[2025-02-13] MEDS: ALBUTEROL SULF 2.5 MG/0.5ML(0.5%) NEB SOLN NEB ONE (08:04)
[2025-02-13] MEDS: CALCIUM GLUC 1,000mg/50ml-NS 50 ML IV ONE (08:51)
[2025-02-13] MEDS: FUROSEMIDE 40 MG/4 ML VIAL IV ONE (08:54)
[2025-02-13] MEDS: DEXTROSE (50%) 50ML SYRG IV ONE (08:55)
[2025-02-13] MEDS: SODIUM BICARB 8.4% 50Meq/50ml SYR INJ IV ONE (08:55)
[2025-02-13] MEDS: InsuLIN REG 1unit/0.01ml Soln (100units/ml) IV ONE (09:21)
[2025-02-13 09:23] LABS: Hematocrit 42.7 % (41.0-53.0); Hemoglobin 13.8 g/dL (13.5-17.5); Mean Corpuscular Hemoglobin 30.6 pg (28.0-32.0); Mean Corpuscular Volume 94.6 fL (80.0-100.0); Nucleated Red Blood Cells % 0.1 %
[2025-02-13] MEDS: fentaNYL Drip 2500mCg/250mlNS 250 ML IV SCH ×2 (09:36→14:45)
[2025-02-13] MEDS: NOREPINEPHRINE BITARTRATE 32 MG in SODIUM CHL 0.9% 218 ML IV SCH (09:38)
[2025-02-13] MEDS: NICOTINE 21MG/24 HR TOPICAL PATCH TD SCH (10:00)
[2025-02-13] MEDS ORDERED: ATROPINE SULF 1 MG/10ml SYR IV ONE (10:36)
[2025-02-13] MEDS ORDERED: SODIUM BICARB 8.4% 50Meq/50ml SYR INJ IV ONE (10:36)
[2025-02-13] MEDS ORDERED: DEXTROSE (50%) 50ML SYRG IV ONE (10:36)
[2025-02-13] MEDS ORDERED: VANCOMYCIN PER PHARMACY 0 MG IV SCH (12:00)
--- NOTE | 2025-02-13 12:04 | DVHPN2 ---
Subjective The patient is seen and examined at bedside. Status post intubation due to shortness of breath. Reviewed: Care Plan, H&P, Labs, Medications, Previous Orders, Radiology Changes from previous H/P or p: No Changes Eyes: No Pain, No Vision change, No Conjunctivae inflammation, No Eyelid inflammation, No Other, No Redness ENT: No Ear pain, No Ear discharge, No Nose pain, No Nose discharge, No Nose congestion, No Mouth pain, No Mouth swelling, No Throat pain, No Throat swelling, No Other Cardiovascular: No Chest Pain, No Palpitations, No Orthopnea, No Paroxysmal Noc. Dyspnea, No Edema, No Lt Headedness, No Other Respiratory: No Cough, No Dry; Shortness of breath, SOB with excertion; No Wheezing, No Hemoptysis, No Pleuritic Pain, No Sputum; Other (SOB at rest) Gastrointestinal: No Nausea, No Vomiting; Abdominal Pain; No Diarrhea, No Constipation, No Melena, No Hematochezia; Other (Abdominal distention) Genitourinary: No Dysuria, No Frequency, No Incontinence, No Hematuria, No Retention, No Other Musculoskeletal: No other, No neck pain, No shoulder pain, No arm pain, No back pain, No hand pain, No leg pain, No foot pain Skin: No Rash, No Lesions, No Jaundice, No Bruising; Other (Lower extremity open wounds) Objective Vitals Vital Signs Date Time Temp Pulse Resp B/P (MAP) Pulse Ox O2 Delivery O2 Flow Rate FiO2 02/13/25 11:35 97/68 02/13/25 10:48 90 22 98 80 02/13/25 07:00 98.8 98.8 02/13/25 05:44 Ambu-Bag 02/12/25 19:30 6 Intake/Output Intake and Output 02/13/25 07:00 Output Total 800 ml Balance -800 ml Output Urine Total 800 ml General Appearance: Other (intubate, on vent, unable to examined.) HEENT: Atraumatic, PERRLA, EOMI, Mucous membr. moist/pink Neck: Supple Lungs: Clear to auscultation, Normal air movement Cardiovascular: Regular rate, Normal S1, Normal S2, No murmurs, Gallops, Rubs Abdomen: Normal bowel sounds, Soft, No tenderness Neuro: Other (intubate, on vent , unable to examined.) Medications Current Medications Medications Dose Ordered Sig/Geraldo Route Start Time Stop Time Status Last Admin Dose Admin Carvedilol 3.125 mg Q12HR PO 02/12/25 10:00 Hold 02/12/25 10:35 3.125 MG Albuterol 2.5 mg Q4HPRN PRN NEB 02/11/25 22:15 02/12/25 17:40 2.5 MG Ipratropium [place] 0.5 mg Q4HPRN PRN NEB 02/11/25 22:15 02/12/25 17:39 0.5 MG Furosemide 40 mg DAILY IV 02/12/25 10:00 02/12/25 10:37 40 MG Diagnostic Test (Pha) 1 strip ACHS 02/12/25 07:00 02/13/25 11:06 1 STRIP Insulin Human Regular ACHS SC 02/12/25 07:00 02/12/25 12:40 3 UNITS Dextrose 50 ml UD PRN IV 02/11/25 22:15 Sodium Chloride 10 ml Q8HR IV 02/12/25 06:00 02/13/25 06:17 10 ML Acetaminophen/ Hydrocodone Bitart 1 tab Q4HP PRN PO 02/11/25 22:15 02/13/25 00:10 1 TAB Ondansetron HCl 4 mg Q4HP PRN IV 02/11/25 22:15 Docusate Sodium 100 mg BIDPRN PRN PO 02/11/25 22:15 Acetaminophen 650 mg Q6HP PRN PO 02/11/25 22:15 Nitroglycerin 0.4 mg Q5MINP PRN SL 02/11/25 22:15 Morphine Sulfate 2 mg Q30M PRN IV 02/11/25 22:15 Tamsulosin HCl 0.4 mg QPM PO 02/12/25 18:00 02/12/25 17:42 0.4 MG Aspirin 81 mg DAILY PO 02/12/25 10:00 02/13/25 10:46 81 MG Famotidine 20 mg DAILY IV 02/12/25 10:00 02/13/25 10:46 20 MG Nicotine 1 patch DAILY TD 02/13/25 10:00 Lorazepam 0.5 mg Q8HP PRN IV 02/13/25 00:15 02/13/25 00:24 0.5 MG Propofol 100 ml @ 2.4 mls/hr Q24H IV 02/13/25 03:45 02/13/25 10:38 16.8 MLS/HR Fentanyl Citrate 250 ml @ 2.5 mls/hr Q24H IV 02/13/25 07:30 02/13/25 09:36 2.5 MLS/HR Norepinephrine Bitartrate 32 mg/ Sodium Chloride 250 ml @ 0.938 mls/ hr Q24H IV 02/13/25 08:45 02/13/25 09:38 5.625 MLS/HR Piperacillin Sod/ Tazobactam Sod 100 ml @ 25 mls/hr Q8HR IV 02/13/25 14:00 UNV Vancomycin HCl 0 ml @ 0 mls/hr PER PHARMACY IV 02/13/25 12:00 UNV Laboratory Results Laboratory Tests 02/13/25 06:15 02/13/25 09:13 Chemistry Test 02/13/25 06:15 Albumin 3.3 g/dL (3.2-4.8) Calcium Level 8.2 mg/dL (8.7-10.4) L Total Protein 6.5 g/dL (5.7-8.2) LFT Test 02/13/25 06:15 Alanine Aminotransferase (ALT) 183 U/L (7-40) H Alkaline Phosphatase 179 U/L (46-116) H Aspartate Amino Transferase (AST) 125 U/L (13-40) H Total Bilirubin 2.4 mg/dL (0.2-1.0) H Blood Gas Results Test 02/13/25 02:40 02/13/25 04:00 02/13/25 06:25 Arterial Blood pH 7.372 (7.350-7.450) 7.262 (7.350-7.450) 7.355 (7.350-7.450) FiO2 % 44.0 100.0 100.0 Microbiology Microbiology Date/Time Source Procedure Growth Status 02/12/25 19:10 Leg Right Gram Stain Pending Resulted 02/12/25 19:10 Leg Right Wound Culture - Preliminary Resulted 02/11/25 19:38 Blood Blood Culture - Preliminary NO GROWTH AFTER 24 HOURS OF INCUBATION. Resulted Labs and/or images reviewed: Labs reviewed by me Assessment/Plan Assessment/Plan Acute respiratory failure with hypoxia status post intubation. Pneumonia secondary to Gram-positive Gram-negative bacteria Congestive heart failure Acute renal injury COPD Elevated liver enzymes Generalized weakness Plan Continuing current management. Continuing with IV antibiotic Rocephin and Zithromax. Continuing with Lasix. We will monitor kidney function. status post intubation and on vent. Will consult replenisher Continue sedation. Critical care spent for this case is 37 minutes. The patient remain full code. This medical document was created using an electronic medical record system with [employer] direct computerized dictation system. Although this document has been carefully reviewed, there may still be some phonetic and typographical errors. These areas are purely typographical due to imperfections of the software programs, and do not reflect any compromise in the patient's medical care. Plan discussed with: Other (rn) My Orders Orders - RAYRAY CLINE MD Procedure Category Date Status Time Cleanse Wound With ANTONY 02/12/25 In Process Wound Clean 10:00 * Dietary Consult CONS 02/12/25 Transmitted 18:06 Apply: ANTONY 02/12/25 In Process 10:00 Apply Z-Guard ANTONY 02/12/25 In Process 10:00 Wound Culture W/ Gs ANNE-MARIE 02/12/25 In Process 18:06 Wound Culture W/ Gs ANNE-MARIE 02/12/25 In Process 18:06 *Consult CONS 02/13/25 Transmitted 10:44 Date of Service: Feb 13, 2025 Billing Provider: RAYRAY CLINE MD Common Visit Codes: [id number] CARE 30-74 MIN RAYRAY CLINE MD Feb 13, 2025 12:04
[2025-02-13] MEDS: VANCOMYCIN 1GM/250ML KIT 250 ML IV SCH (13:12)
[2025-02-13 13:19] LABS: Hepatitis A Total Antibody Positive (Negative); Hepatitis B Surface Antigen Negative (Negative); Hepatitis C Antibody Negative (Negative)
[2025-02-13 13:53] LABS: Anion Gap 8 (5-15); BUN/Creatinine Ratio 31.6 (10.0-20.0); Carbon Dioxide 28 mmol/L (20-31); Chloride 101 mmol/L (98-107); Glucose 88 mg/dL (74-106); Sodium 137 mmol/L (136-145); Total Protein 5.9 g/dL (5.7-8.2)
[2025-02-13 13:54] LABS: Alanine Aminotransferase 178 U/L (7-40); Albumin 3.1 g/dL (3.2-4.8); Alkaline Phosphatase 161 U/L (46-116); Bilirubin, Total 2.0 mg/dL (0.2-1.0); Blood Urea Nitrogen 56 mg/dL (9-23); Calcium 8.4 mg/dL (8.7-10.4); Potassium 5.2 mmol/L (3.5-5.1)
--- NOTE | 2025-02-13 14:24 | DVHINCON2 ---
Date of service: Feb 13, [address] Licea Reason for Consultation Acute respiratory failure History of Present Illness History Source: Patient, RN Notes, MD Notes Exam Limitations: Clinical condition HPI Patient is a 64-year old gentleman known to us for previous admissions with liver cirrhosis, ascites, hypertension, diabetes and congestive heart failure who presented with abdominal distension and shortness of breath. Was seen in the emergency room where he was found to be in respiratory distress and was subsequently intubated. Patient continued to decline and developed cardiac arrest requiring CPR per ALCS protocols. He was intubated and placed on mechanical ventilation, initial settings RR 22, tidal volume 500, PEEP 5, FiO2 100%. Pulmonology was consulted to assist in management. Past Medical History Cardiac: CHF, HTN Pulmonary: No pertinent Hx Central Nervous System: No pertinent Hx GI: No pertinent Hx Hemotology/Oncology: No pertinent Hx Hepatobiliary: Cirrhosis Psychiatric: No pertinent Hx Musculoskeletal: No pertinent Hx Rheumotologic: No pertinent Hx Infectious Disease: No peritnent Hx ENT: No pertinent Hx Renal/: No pertinent Hx Endocrine: NIDDM Dermatology: No pertinent Hx Past Surgical History: No pertinent Hx Family History: No pertinent Hx Smoker: No Hx (Negative) Alocohol: None Drugs: None Lives with: With family Domestic Violence: Neg Review of Systems Comments unable to obtain- patient intubated and sedated H&P Exam Vital Signs Vital Signs Date Time Temp Pulse Resp B/P (MAP) Pulse Ox O2 Delivery O2 Flow Rate FiO2 02/13/25 13:16 107/80 02/13/25 12:30 85 22 97 60 02/13/25 10:00 Mechanical Ventilator+ 02/13/25 07:00 98.8 98.8 02/12/25 19:30 6 General Appeara: Well developed, Well nourished, Normal Appearance Head Exam: Normal inspection Neck Exam: Normal inspection, Non-tender, Normal alignment Eye Exam: bilateral eye Normal inspection, bilateral eye PERRL, bilateral eye EOMI Ear Exam: bilateral ear Auricle normal, bilateral ear Canal normal, bilateral ear TM normal Nasal Exam: Normal inspection Mouth: Normal Inspection Pulmonary/Respiratory: Decreased breath sounds Cardiovascular/Chest: Normal inspection Peripheral Pulses: 4+ Radial (R), 4+ Radial (L), 4+ Brachial (R), 4+ Brachial (L) Labs/Xrays Labs Test 02/13/25 12:59 02/13/25 10:57 02/13/25 09:13 02/13/25 06:25 Range/Units Sodium Level 137 136-145 mmol/L Potassium Level 5.2 H 3.5-5.1 mmol/L Chloride Level 101 98-107 mmol/L Carbon Dioxide Level 28 20-31 mmol/L Anion Gap 8 5-15 Blood Urea Nitrogen 56 #H 9-23 mg/dL Creatinine 1.77 H 0.700-1.30 mg/dL Glomerular Filtration Rate Calc 43 >90 mL/min BUN/Creatinine Ratio 31.6 H 10.0-20.0 Serum Glucose 88 74-106 mg/dL Lactic Acid Level 1.6 0.4-2.0 mmol/L Calcium Level 8.4 L 8.7-10.4 mg/dL Total Bilirubin 2.0 H 0.2-1.0 mg/dL Aspartate Amino Transferase (AST) 117 H 13-40 U/L Alanine Aminotransferase (ALT) 178 H 7-40 U/L Alkaline Phosphatase 161 H 46-116 U/L Troponin I High Sensitivity 163 *H </=54 ng/L Total Protein 5.9 5.7-8.2 g/dL Albumin 3.1 L 3.2-4.8 g/dL POC Glucose 102 70-106 mg/dl White Blood Count 11.8 H 4.4-10.8 10^3/uL Red Blood Count 4.51 4.5-5.90 10^6/uL Hemoglobin 13.8 13.5-17.5 g/dL Hematocrit 42.7 41.0-53.0 % Mean Corpuscular Volume 94.6 80.0-100.0 fL Mean Corpuscular Hemoglobin 30.6 28.0-32.0 pg Mean Corpuscular Hemoglobin Concent 32.4 32.0-36.0 g/dL Red Cell Distribution Width 15.7 H 11.8-14.3 % Platelet Count 207 140-450 10^3/uL Mean Platelet Volume 9.3 6.9-10.8 fL Neutrophils (%) (Auto) 83.9 H 37.0-80.0 % Lymphocytes (%) (Auto) 6.2 L 10.0-50.0 % Monocytes (%) (Auto) 9.6 0.0-12.0 % Eosinophils (%) (Auto) 0.1 0.0-7.0 % Basophils (%) (Auto) 0.2 0.0-2.0 % Neutrophils # (Auto) 9.9 H 1.6-8.6 10 ^3/uL Lymphocytes # (Auto) 0.7 0.4-5.4 10 ^3/uL Monocytes # (Auto) 1.1 0-1.3 10 ^3/uL Eosinophils # (Auto) 0 0-0.8 10 ^3/uL Basophils # (Auto) 0 0-0.2 10 ^3/uL Nucleated Red Blood Cells 0.1 % Blood Gas Specimen Type Arterial Blood Gas Sample Site Right radial Blood Gas Patient Temperature 37.0 Arterial Blood Date Drawn Arterial Blood pH 7.355 7.350-7.450 Arterial Blood Partial Pressure CO2 38.3 35.0-48.0 mmHg Arterial Blood Partial Pressure O2 129.4 H 83.0-108.0 mmHg Arterial Blood HCO3 20.9 L 21.0-28.0 mmol/L Arterial Blood Oxygen Saturation 98.3 H 94.0-98.0 % Arterial Blood Base Excess -4.1 L -2.0-3.0 mmol/L Arterial Blood Oxyhemoglobin 96.6 94.0-98.0 % Arterial Blood Carboxyhemoglobin 1.2 0.5-1.5 % Arterial Blood Methemoglobin 0.5 0.0-1.5 % Arterial Blood Deoxyhemoglobin 1.7 0.0-5.0 % Charles Test Yes Blood Gas Total Hemoglobin 15.50 13.5-17.5 g/dL Blood Gas Set Respiration Rate 22.0 Blood Gas Modality Vent - ac Blood Gas Spontaneous Rate 25 FiO2 % 100.0 Blood Gas Tidal Volume 500.0 Blood Gas PEEP or CPAP 5.0 Test 02/13/25 06:15 02/13/25 02:40 02/11/25 18:54 02/11/25 18:53 Range/Units Ferritin 87.6 22-322 ng/mL Hepatitis A Antibody Total Positive H Negative Hepatitis B Surface Antigen Negative Negative Hepatitis B Surface Antibody Negative Negative Hepatitis B Core Total Antibody Negative Negative Hepatitis C Antibody Negative Negative Blood Gas Liter Flow 6.00 Blood Gas Critical Value Read Back Yes Blood Gas Notified Whom Md paige engel Blood Gas Notified Time [id number] Blood Gas Notified By Rt mikayla mcdowell Venous Blood pH 7.355 7.320-7.430 Venous Blood pCO2 at Patient Temp 47.3 38.0-54.0 mmHg Venous Blood pO2 at Patient Temp < 36.5 23.0-48.0 mmHg Venous Blood HCO3 25.8 22.0-29.0 mmol/L Venous Blood Base Excess -0.2 -2.0-3.0 mmol/L Prothrombin Time 13.6 H 9.3-11.8 sec Prothrombin Time INR 1.32 H 0.9-1.15 Activated Partial Thromboplast Time 30.8 24.5-34.5 SEC Magnesium Level 2.5 1.6-2.6 mg/dL B-Type Natriuretic Peptide 1809.69 0-100 pg/mL Microbiology Date/Time Source Procedure Growth Status 02/13/25 08:15 Nose MRSA Screen - Final Complete 02/11/25 19:38 Blood Blood Culture - Preliminary NO GROWTH AFTER 24 HOURS OF INCUBATION. Resulted Assessment/Plan Plan Impression Acute hypoxemic respiratory failure Small right pleural effusions S/p cardiac arrest Cardiomyopathy CHF Patient seen and examined in ICU Events On mechanical ventilation S/p intubation PEEP 5, FiO2 100% Labs and imaging reviewed Chest x-ray shows small right pleural effusions Serum lactate elevated ABG reviewed pH 7.35, pCO2 38, pO2 129 Management Vent support Titrate to maintain sats 90% or above Sedation for vent synchrony Antibiotics Obtain cultures Bronchodilators Monitor renal function Monitor electrolytes Supplement as needed Pressors as needed for hemodynamic support To maintain a mean arterial pressure of 65 mmHg Echo report reviewed EF approximately 20% F/u cardiology General prognosis poor DVT prophylaxis Critical care time 35 minutes Plan discussed with: Other (Rn) TONA BRADFORD MD Feb 13, 2025 14:24
[2025-02-13] MEDS: MIDAZOLAM DRIP 100 mg/100mL NS 100 ML IV SCH (14:42)
--- NOTE | 2025-02-13 14:52 | DVH ---
BILATERAL Lower Extremity Arterial Duplex Date: 02/13/2025 02:02 PM Clinical History: WEAK PULSES ON LOWER EXTREMITIES Comparison: None Technique: Duplex Doppler evaluation including color Doppler and spectral/pulsed waveform analysis of the lower extremity arteries was performed. Finding: RIGHT: Velocities within normal limits. Right anterior tibial artery not visualized. Monophasic waveforms in the dorsalis pedal artery. LEFT: Velocities within normal limits. Triphasic waveform seen from the left common femoral artery to the popliteal artery. Biphasic waveforms in the anterior tibial artery and dorsalis pedal artery. Left posterior tibial artery not visualized. REFERENCE VALUES, [facility]) vascular Imaging Lab Criteria: Peak systolic velocity ranges (in cm/sec) are as follows: <150 cm/s - <20 % stenosis 150-200 cm/s - 20-49% stenosis 200-300 cm/s - 50-75% stenosis >300 cm/s -> 75% stenosis IMPRESSION: Moderate bilateral peripheral arterial disease.
[2025-02-13] MEDS: PIPERACILLIN-TAZOB 3.375GM 100 ML IV SCH (16:05)
--- NOTE | 2025-02-13 17:08 | DVHINCON2 ---
Date of service: Feb 13, 2025 History of Present Illness 64 yo M with end stage HF, ?meth abuse, ckd, DM admitted for sob and then had PEA arrest. pt is now intubated. lvef was <20%. pt was seen by GI as well . pt is on pressors Past Medical History reviewed Family History: Patient reports no known family medical history. Allergies: Coded Allergies: NO KNOWN ALLERGIES (Unverified , 02/11/25) Current Medications Current Medications Medications (Trade) Dose Ordered Sig/Geraldo Route PRN Reason Start Time Stop Time Status Last Admin Azithromycin 250 ml @ 125 mls/hr Q24H IV 02/12/25 21:00 02/13/25 11:47 DC 02/12/25 21:19 Ceftriaxone Sodium 50 ml @ 100 mls/hr Q24H IV 02/12/25 21:00 02/13/25 11:47 DC 02/12/25 20:51 Tamsulosin HCl (Flomax) 0.4 mg QPM PO 02/12/25 18:00 02/12/25 17:42 Nicotine (Nicoderm 21MG/ 24HR) 1 patch DAILY TD 02/13/25 10:00 Lorazepam (Ativan Inj) 0.5 mg Q8HP PRN IV ANXIETY 02/13/25 00:15 02/13/25 00:24 Propofol 100 ml @ 2.4 mls/hr Q24H IV 02/13/25 03:45 02/13/25 14:31 DC 02/13/25 10:38 Norepinephrine Bitartrate 250 ml @ 3.75 mls/hr Q24H IV 02/13/25 04:30 02/13/25 07:29 DC 02/13/25 04:20 Norepinephrine Bitartrate 16 mg/ Sodium Chloride 250 ml @ 1.875 mls/ hr Q24H IV 02/13/25 07:30 02/13/25 08:43 DC Fentanyl Citrate 250 ml @ 2.5 mls/hr Q24H IV 02/13/25 07:30 02/13/25 14:31 DC 02/13/25 09:36 Norepinephrine Bitartrate 32 mg/ Sodium Chloride 250 ml @ 0.938 mls/ hr Q24H IV 02/13/25 08:45 02/13/25 09:38 Piperacillin Sod/ Tazobactam Sod 100 ml @ 25 mls/hr Q8HR IV 02/13/25 14:00 02/13/25 16:05 Vancomycin HCl 0 ml @ 0 mls/hr PER PHARMACY IV 02/13/25 12:00 Vancomycin HCl 250 ml @ 250 mls/hr Q1H IV 02/13/25 12:45 02/13/25 14:44 DC 02/13/25 14:40 Midazolam HCl 100 ml @ 1 mls/hr Q24H IV 02/13/25 14:30 02/13/25 14:42 Fentanyl Citrate 250 ml @ 2.5 mls/hr Q24H IV 02/13/25 14:45 Review of Systems intubated not obtained Vital Signs Vital Signs Date Time Temp Pulse Resp B/P (MAP) Pulse Ox O2 Delivery O2 Flow Rate FiO2 02/13/25 16:25 92 22 111/80 (90) 97 60 02/13/25 16:00 Mechanical Ventilator+ 02/13/25 08:37 100.4 100.4 02/12/25 19:30 6 Physical Exam disheveled appearance, et tube in place s1 s2 rrr diffuse rhonchi abd distended +3 leg edema, purple color with ulcers to both calves, unkempt Labs/Diagnostic Data Labs Test 02/13/25 16:15 02/13/25 12:59 02/13/25 10:57 02/13/25 09:13 Range/Units Troponin I High Sensitivity 163 *H </=54 ng/L Sodium Level 137 136-145 mmol/L Potassium Level 5.2 H 3.5-5.1 mmol/L Chloride Level 101 98-107 mmol/L Carbon Dioxide Level 28 20-31 mmol/L Anion Gap 8 5-15 Blood Urea Nitrogen 56 #H 9-23 mg/dL Creatinine 1.77 H 0.700-1.30 mg/dL Glomerular Filtration Rate Calc 43 >90 mL/min BUN/Creatinine Ratio 31.6 H 10.0-20.0 Serum Glucose 88 74-106 mg/dL Lactic Acid Level 1.6 0.4-2.0 mmol/L Calcium Level 8.4 L 8.7-10.4 mg/dL Total Bilirubin 2.0 H 0.2-1.0 mg/dL Aspartate Amino Transferase (AST) 117 H 13-40 U/L Alanine Aminotransferase (ALT) 178 H 7-40 U/L Alkaline Phosphatase 161 H 46-116 U/L Total Protein 5.9 5.7-8.2 g/dL Albumin 3.1 L 3.2-4.8 g/dL POC Glucose 102 70-106 mg/dl White Blood Count 11.8 H 4.4-10.8 10^3/uL Red Blood Count 4.51 4.5-5.90 10^6/uL Hemoglobin 13.8 13.5-17.5 g/dL Hematocrit 42.7 41.0-53.0 % Mean Corpuscular Volume 94.6 80.0-100.0 fL Mean Corpuscular Hemoglobin 30.6 28.0-32.0 pg Mean Corpuscular Hemoglobin Concent 32.4 32.0-36.0 g/dL Red Cell Distribution Width 15.7 H 11.8-14.3 % Platelet Count 207 140-450 10^3/uL Mean Platelet Volume 9.3 6.9-10.8 fL Neutrophils (%) (Auto) 83.9 H 37.0-80.0 % Lymphocytes (%) (Auto) 6.2 L 10.0-50.0 % Monocytes (%) (Auto) 9.6 0.0-12.0 % Eosinophils (%) (Auto) 0.1 0.0-7.0 % Basophils (%) (Auto) 0.2 0.0-2.0 % Neutrophils # (Auto) 9.9 H 1.6-8.6 10 ^3/uL Lymphocytes # (Auto) 0.7 0.4-5.4 10 ^3/uL Monocytes # (Auto) 1.1 0-1.3 10 ^3/uL Eosinophils # (Auto) 0 0-0.8 10 ^3/uL Basophils # (Auto) 0 0-0.2 10 ^3/uL Nucleated Red Blood Cells 0.1 % Test 02/13/25 06:25 02/13/25 06:15 02/13/25 02:40 02/11/25 18:54 Range/Units Blood Gas Specimen Type Arterial Blood Gas Sample Site Right radial Blood Gas Patient Temperature 37.0 Arterial Blood Date Drawn [id number] Arterial Blood pH 7.355 7.350-7.450 Arterial Blood Partial Pressure CO2 38.3 35.0-48.0 mmHg Arterial Blood Partial Pressure O2 129.4 H 83.0-108.0 mmHg Arterial Blood HCO3 20.9 L 21.0-28.0 mmol/L Arterial Blood Oxygen Saturation 98.3 H 94.0-98.0 % Arterial Blood Base Excess -4.1 L -2.0-3.0 mmol/L Arterial Blood Oxyhemoglobin 96.6 94.0-98.0 % Arterial Blood Carboxyhemoglobin 1.2 0.5-1.5 % Arterial Blood Methemoglobin 0.5 0.0-1.5 % Arterial Blood Deoxyhemoglobin 1.7 0.0-5.0 % Charles Test Yes Blood Gas Total Hemoglobin 15.50 13.5-17.5 g/dL Blood Gas Set Respiration Rate 22.0 Blood Gas Modality Vent - ac Blood Gas Spontaneous Rate 25 FiO2 % 100.0 Blood Gas Tidal Volume 500.0 Blood Gas PEEP or CPAP 5.0 Ferritin 87.6 22-322 ng/mL Hepatitis A Antibody Total Positive H Negative Hepatitis B Surface Antigen Negative Negative Hepatitis B Surface Antibody Negative Negative Hepatitis B Core Total Antibody Negative Negative Hepatitis C Antibody Negative Negative Blood Gas Liter Flow 6.00 Blood Gas Critical Value Read Back Yes Blood Gas Notified Whom Md paige engel Blood Gas Notified Time [id number] Blood Gas Notified By Rt mikayla mcdowell Venous Blood pH 7.355 7.320-7.430 Venous Blood pCO2 at Patient Temp 47.3 38.0-54.0 mmHg Venous Blood pO2 at Patient Temp < 36.5 23.0-48.0 mmHg Venous Blood HCO3 25.8 22.0-29.0 mmol/L Venous Blood Base Excess -0.2 -2.0-3.0 mmol/L Test 02/11/25 18:53 Range/Units Prothrombin Time 13.6 H 9.3-11.8 sec Prothrombin Time INR 1.32 H 0.9-1.15 Activated Partial Thromboplast Time 30.8 24.5-34.5 SEC Magnesium Level 2.5 1.6-2.6 mg/dL B-Type Natriuretic Peptide 1809.69 0-100 pg/mL Microbiology Date/Time Source Procedure Growth Status 02/13/25 08:15 Nose MRSA Screen - Final Complete 02/11/25 19:38 Blood Blood Culture - Preliminary NO GROWTH AFTER 24 HOURS OF INCUBATION. Resulted Assessment acute on chronic class IV hf meth abuse ckd hypotension resp failure non complinace Plan/Recommendation iv lasix responded well to 80 mg iv lasix cont pressors cont tele for now elevated LFTs--seen by GI , prob 2/2 to HF, assess for Hep B defer to primary team keep K and mag at goal moderate CKD inotropes if creat worsens 40 mins critical care time spent poor prognosis given social condition Plan discussed with: Patient ALLEY PANDEY MD Feb 13, 2025 17:08
[2025-02-13] MEDS: BUMETANIDE 2.5mg/10ml (0.25 mg/ml) INJ IV ONE (18:47)
[2025-02-13 19:20] LABS: Amphetamine Screen, Urine Pos (NEGATIVE); Barbiturate Scree,Urine Neg (NEGATIVE); Benzodiazephine Screen, Urine Pos (NEGATIVE); Cannabinoid Screen, Urine Neg (NEGATIVE); Cocaine Screen, Urine Neg (NEGATIVE); Opiate Scree,Urine Neg (NEGATIVE); Phencyclidine Screen, Urine Neg (NEGATIVE)
[2025-02-14] VITALS (106 sets, daily range): BP systolic 92–113; BP diastolic 55–78; PULSE 74–88; RESP 10–31; TEMP 97.9–99; O2SAT 91–98
[2025-02-14 04:12] LABS: Hematocrit 45.0 % (41.0-53.0); Hemoglobin 14.7 g/dL (13.5-17.5); Mean Corpuscular Hemoglobin 31.0 pg (28.0-32.0); Mean Corpuscular Volume 95.2 fL (80.0-100.0); Nucleated Red Blood Cells % 0.1 %
[2025-02-14 05:00] LABS: Anion Gap 8 (5-15); BUN/Creatinine Ratio 31.5 (10.0-20.0); Carbon Dioxide 28 mmol/L (20-31); Chloride 100 mmol/L (98-107); Potassium 4.7 mmol/L (3.5-5.1); Sodium 136 mmol/L (136-145); Total Protein 6.3 g/dL (5.7-8.2)
[2025-02-14 05:05] LABS: Alanine Aminotransferase 154 U/L (7-40); Albumin 3.2 g/dL (3.2-4.8); Alkaline Phosphatase 149 U/L (46-116); Bilirubin, Total 3.3 mg/dL (0.2-1.0); Blood Urea Nitrogen 51 mg/dL (9-23); Calcium 8.6 mg/dL (8.7-10.4); Glucose 115 mg/dL (74-106)
--- NOTE | 2025-02-14 07:40 | ECG ---
[facility] Test Date: 2025-02-11 Test Time: 18:18:30 Pat Name: SHENG BELTRAN Department: [facility] ED Patient ID: [id number] Room: [address] [place] [address] A Gender: M [employer]: [birth year] : 1960 Requested By: ROD BANUELOS Order Number: [id number] Reading MD: Lizandro Rousseau Measurements Intervals [place] Rate: 99 P: 76 [place]: 150 QRS: 263 QRSD: 147 T: 67 QT: 418 QTc: 537 Interpretive Statements Sinus rhythm Ventricular premature complex Probable left atrial enlargement Nonspecific IVCD with LAD Anterolateral infarct, age indeterminate Electronically Signed On 02-14-2025 15:01:16 PST by Lizandro Rousseau Please click the below link to view image of tracing.
[2025-02-14 08:11] LABS: Base Excess -2.5 mmol/L (-2.0-3.0)
--- NOTE | 2025-02-14 08:22 | DVH ---
INDICATION: shortness of breath TECHNIQUE: Single frontal view of the chest was obtained COMPARISON: XY CHEST XRAY 1 VIEW on DOS: 02/13/25, XY CHEST PORTABLE on DOS: 02/11/25, XY CHEST XRAY 1 VIEW on DOS: 02/13/25 FINDINGS: Lines and Tubes: Endotracheal tube, enteric catheter and right central venous catheter in satisfactory position. Lungs: Unchanged pulmonary vascular congestion. Pleura: Small right pleural effusion.No pneumothorax. Cardiomediastinal contours: Cardiomegaly. Bones: Unremarkable IMPRESSION: Lines and tubes in satisfactory position. No significant interval change.
[2025-02-14] MEDS: FUROSEMIDE 40 MG/4 ML VIAL IV SCH (09:03)
[2025-02-14] MEDS ORDERED: FUROSEMIDE INJECTION 100 MG in SODIUM CHL 0.9% 100 ML IV SCH (09:15)
--- NOTE | 2025-02-14 10:09 | DVHPN2 ---
Assessment/Plan Assessment/Plan ICU note 64 M with HTN, HFrEF 20%, DM, ascites, meth use admitted for SOB, later was found in respiratory distress, intubated and had PEA arrest, ROSC in 4 minutes. 12/ s/p thora, 2 L out. switched to lasix drip. start TF. POCUS done, minimal tapable pocket in abdomen. wound culture with prelim growth. wound care physical exam intubated, sedated on mechanical ventilator obese cannot appreciate JVD mechanical breath sounds S1 S2 systolic murmur abdomen distended b/l LE edema w/ chronic venous wounds vent ac/vc 550 22 60% PEEP 10 7.302/50/77 drips levophed fentanyl labs reviewed imaging cxr RLL opacity echo LVEF 20%, DCM, MR assessment and plan s/p PEA arrest ROSC 4 mins cardiogenic shock acute on chronic hypoxic RF acute on chronic systolic HF small R PLEF COPD with exacerbation PNA gp vs gn HFrEF 20% DCM transaminitis cirrhosis? ascites? ALEXIS likely VMN on CKD? 3 lactic acidosis meth use leukocytosis type 2 PR demand ischemia DM? chronic venous stasis ICU titrate levophed to maintain MAP >60 c/w mechanical vent c/w diuresis, goal net -1L daily c/w sedation, maintain RAAS -2 trend lactate, cr, LFT c/w vanc and Zosyn avoid fever VAP bundle bronchodilators hold GDMT until off pressors send A1C, lipid, tsh wound care keep K 4 Ph 3 Mg 2 Diet jevity to goal DVT PPX lovenox GI PPX protonix Lines RIJ TLC NGT jaffe Full code condition critical prognosis poor critical care time 60 minutes Plan discussed with: Other My Orders Orders - SYEDA VILLALOBOS MD Procedure Category Date Status Time Magnesium LAB 02/15/25 Verified 04:00 Phosphorus LAB 02/15/25 Verified 04:00 Comprehensive LAB 02/15/25 Verified Metabolic Panel 04:00 Complete Blood Count LAB 02/15/25 Verified 04:00 B-Type Natriuretic LAB 02/14/25 Logged Peptide 10:03 Strict I & O ANTONY 02/14/25 In Process 10:03 Daily Weight ANTONY 02/14/25 In Process 10:03 Hemoglobin A1c LAB 02/14/25 Logged 10:05 Lipid Panel LAB 02/14/25 Logged 10:05 Thyroid Stimulating LAB 02/14/25 Logged Hormone 10:05 Date of Service: Feb 14, 2025 Billing Provider: SYEDA VILLALOBOS MD Common Visit Codes: [id number] CARE 30-74 MIN SYEDA VILLALOBOS MD Feb 14, 2025 10:09
--- NOTE | 2025-02-14 11:50 | DVHPN2 ---
Progress Note - Dictate Date Seen: Feb 14, 2025 Medical Necessity Reason Pt with a Central, PICC or Fol: Yes The following are medically ne: Central Line, Aguilar Catheter vital signs Vital Sign Date Time Temp Pulse Resp B/P (MAP) Pulse Ox O2 Delivery O2 Flow Rate FiO2 02/14/25 11:30 99.0 84 19 107/68 (81) 210.2 02/14/25 11:15 96 02/14/25 10:00 Mechanical Ventilator+ 50 50 02/12/25 19:30 6 Total Intake and Output 02/13/25 02/13/25 02/14/25 15:00 23:00 07:00 Intake Total 447.8 ml 366.176 ml 267.5 ml Output Total 1450 ml 1350 ml Balance 447.8 ml -1083.824 ml -1082.5 ml medications Current Medications Medications Dose Ordered Sig/Geraldo Route Start Time Stop Time Status Last Admin Dose Admin Albuterol 2.5 mg Q4HPRN PRN NEB 02/11/25 22:15 02/14/25 06:26 2.5 MG Ipratropium [place] 0.5 mg Q4HPRN PRN NEB 02/11/25 22:15 02/14/25 06:26 0.5 MG Diagnostic Test (Pha) 1 strip ACHS 02/12/25 07:00 02/14/25 11:38 1 STRIP Insulin Human Regular ACHS SC 02/12/25 07:00 02/12/25 12:40 3 UNITS Dextrose 50 ml UD PRN IV 02/11/25 22:15 Sodium Chloride 10 ml Q8HR IV 02/12/25 06:00 02/14/25 06:05 10 ML Acetaminophen/ Hydrocodone Bitart 1 tab Q4HP PRN PO 02/11/25 22:15 02/13/25 00:10 1 TAB Ondansetron HCl 4 mg Q4HP PRN IV 02/11/25 22:15 Docusate Sodium 100 mg BIDPRN PRN PO 02/11/25 22:15 Acetaminophen 650 mg Q6HP PRN PO 02/11/25 22:15 Nitroglycerin 0.4 mg Q5MINP PRN SL 02/11/25 22:15 Morphine Sulfate 2 mg Q30M PRN IV 02/11/25 22:15 Tamsulosin HCl 0.4 mg QPM PO 02/12/25 18:00 02/12/25 17:42 0.4 MG Aspirin 81 mg DAILY PO 02/12/25 10:00 02/14/25 09:03 81 MG Famotidine 20 mg DAILY IV 02/12/25 10:00 02/14/25 09:03 20 MG Nicotine 1 patch DAILY TD 02/13/25 10:00 Lorazepam 0.5 mg Q8HP PRN IV 02/13/25 00:15 02/13/25 00:24 0.5 MG Norepinephrine Bitartrate 32 mg/ Sodium Chloride 250 ml @ 0.938 mls/ hr Q24H IV 02/13/25 08:45 02/13/25 09:38 5.625 MLS/HR Piperacillin Sod/ Tazobactam Sod 100 ml @ 25 mls/hr Q8HR IV 02/13/25 14:00 02/14/25 06:05 25 MLS/HR Vancomycin HCl 0 ml @ 0 mls/hr PER PHARMACY IV 02/13/25 12:00 Midazolam HCl 100 ml @ 1 mls/hr Q24H IV 02/13/25 14:30 02/13/25 14:42 1 MLS/HR Fentanyl Citrate 250 ml @ 2.5 mls/hr Q24H IV 02/13/25 14:45 02/14/25 02:59 15 MLS/HR Furosemide 100 mg/ Sodium Chloride 110 ml @ 5.5 mls/hr Q20H IV 02/14/25 09:15 Enoxaparin Sodium 40 mg DAILY SC 02/15/25 10:00 Octreotide Acetate 100 mcg TID SUBCUT 02/14/25 14:00 Dopamine HCl/ Dextrose 250 ml @ 4.069 mls/ hr Q24H IV 02/14/25 11:00 laboratory and microbiology Laboratory Tests 02/14/25 03:31 Test 02/14/25 03:31 Range/Units Serum Glucose 115 H 74-106 mg/dL Assessment/Plan Impression Acute hypoxemic respiratory failure Small right pleural effusions S/p cardiac arrest Cardiomyopathy CHF Patient seen and examined in ICU Events On mechanical ventilation S/p intubation PEEP 5, FiO2 50% Thoracentesis was performed at the bedside See separate note for procedure in detail Labs and imaging reviewed ABG reviewed Management Vent support Titrate to maintain sats 90% or above Sedation for vent synchrony Continue antibiotics F/u cultures Bronchodilators Monitor renal function Monitor electrolytes Supplement as needed Pressors as needed for hemodynamic support To maintain a mean arterial pressure of 65 mmHg Echo report reviewed EF approximately 20% F/u cardiology General prognosis poor DVT prophylaxis Critical care time 35 minutes Dietary Evaluation Review Comments[facility] Cardiac diet, texture as tolearated when medically feasible nicotine cessation counseling Follow up with updated lab values Expected Outcomes/Goals: Improved nurition related lab values, free from nicotine Plan discussed with: Other (Rn) TONA BRADFORD MD Feb 14, 2025 11:50
--- NOTE | 2025-02-14 11:51 | DVHNC2 ---
Procedure - Procedure- Right sided Thoracentesis ultrasound guided Indication- Pleural effusions Procedure in detail Consent was obtained and timeout performed per protocol. The patient was placed in the decubitus position and ultrasound SonoSite was used to localize pleural fluid. ChloraPrep was used to clean the operative field and Lidocaine for local analgesia. Thoracentesis catheter was advanced over the needle, attached to the suction bottle and approximately 1.3 liters of fluid was drained from the right pleural space. At the end of the procedure, the catheter was removed and dressing applied. Samples obtained for diagnostic testing. Chest-x ray ordered. No complications TONA BRADFORD MD Feb 14, 2025 11:51
[2025-02-14] MEDS: VANCOMYCIN 1GM/250ML KIT 250 ML IV ONE (11:54)
[2025-02-14 12:09] LABS: Triglycerides 81 mg/dL (< 150)
[2025-02-14 12:11] LABS: Cholesterol 119 mg/dL (< 200)
[2025-02-14 12:15] LABS: HDL Cholesterol 25 mg/dL (40-59)
[2025-02-14] MEDS: DOPamine 3200MCG/ML 250 ML IV SCH (12:17)
[2025-02-14] MEDS: ENOXAPARIN SOD 40 MG/0.4 ML SYRINGE SC ONE (12:17)
--- NOTE | 2025-02-14 12:36 | DVHCONRES ---
Date Seen: Feb 14, 2025 Resident Creating Document: MAURO FITCH RESIDENT Referring Physician Dr Dasilva Reason for Consultation Acute kidney injury History of Present Illness The patient is a 64-year-old male with past medical history of CHF, hypertension, and diabetes mellitus who presented to [facility] ED with complaint of abdominal distention. Patient reports that he has been experie ncing abdominal distention associated with shortness of breaths, bipedal edema, orthopnea, cyanosis, generalized weakness, getting worse that prompted this visit. Patient was seen at [facility] for similar symptoms however abdominal paracentesis was not done. Past Medical History: CHF, DM, HTN Past Surgical History: Denies all surgeries Family History: Reviewed, noncontributory to the management of this case. Past Social History: The patient lives at home, denies smoking, alcohol or illic it drugs abuse. Patient seen and examined at the bedside. Unable to obtain ROS due to patient's clinical status currently intubated and on mechanical ventilation. Family History: Patient reports no known family medical history. Allergies: Coded Allergies: NO KNOWN ALLERGIES (Unverified , 02/11/25) Current Medications Current Medications Medications (Trade) Dose Ordered Sig/Geraldo Route PRN Reason Start Time Stop Time Status Last Admin Piperacillin Sod/ Tazobactam Sod 100 ml @ 25 mls/hr Q8HR IV 02/13/25 14:00 02/14/25 06:05 Vancomycin HCl 250 ml @ 250 mls/hr Q1H IV 02/13/25 12:45 02/13/25 14:44 DC 02/13/25 14:40 Midazolam HCl 100 ml @ 1 mls/hr Q24H IV 02/13/25 14:30 02/13/25 14:42 Fentanyl Citrate 250 ml @ 2.5 mls/hr Q24H IV 02/13/25 14:45 02/14/25 02:59 Furosemide (Lasix Injection) 40 mg BIDD IV 02/14/25 08:00 02/14/25 09:18 DC 02/14/25 09:03 Furosemide 100 mg/ Sodium Chloride 110 ml @ 5.5 mls/hr Q20H IV 02/14/25 09:15 02/14/25 12:29 DC Enoxaparin Sodium (Lovenox) 40 mg DAILY SC 02/15/25 10:00 Octreotide Acetate (SandoSTATIN) 100 mcg TID SUBCUT 02/14/25 14:00 Dopamine HCl/ Dextrose 250 ml @ 4.069 mls/ hr Q24H IV 02/14/25 11:00 02/14/25 12:17 Furosemide 100 mg/ Sodium Chloride 110 ml @ 11 mls/hr Q10H IV 02/14/25 12:30 Vital Signs Vital Signs Date Time Temp Pulse Resp B/P (MAP) Pulse Ox O2 Delivery O2 Flow Rate FiO2 02/14/25 12:17 109/71 02/14/25 11:54 86 22 96 40 02/14/25 11:30 99.0 210.2 02/14/25 10:00 Mechanical Ventilator+ 02/12/25 19:30 6 Physical Exam Pt is lying on bed General Appearance: Sedated and intubated on mechanical v HEENT: Atraumatic, Mucous membranes moist/pink Respiratory: diminished Cardiovascular: Regular rate, Normal S1, Normal S2, No murmurs Abdominal: Active bowel sounds, Soft, no distention, Extremities: 3+ BLE with the bluish discoloration Skin: bluish discoloration with eczematous rash in both lower extremities Neuro: deferred Nurse was there as medical associate during examination Labs/Diagnostic Data Labs Test 02/14/25 11:30 02/14/25 11:29 02/14/25 07:55 02/14/25 03:31 Range/Units POC Glucose 105 70-106 mg/dl Blood Gas Specimen Type Arterial Blood Gas Sample Site Right radial Blood Gas Patient Temperature 37.0 Arterial Blood Date Drawn [id number] Arterial Blood pH 7.302 L 7.350-7.450 Arterial Blood Partial Pressure CO2 50.8 H 35.0-48.0 mmHg Arterial Blood Partial Pressure O2 77.5 L 83.0-108.0 mmHg Arterial Blood HCO3 24.5 21.0-28.0 mmol/L Arterial Blood Oxygen Saturation 94.3 94.0-98.0 % Arterial Blood Base Excess -2.5 L -2.0-3.0 mmol/L Arterial Blood Oxyhemoglobin 92.3 L 94.0-98.0 % Arterial Blood Carboxyhemoglobin 1.8 H 0.5-1.5 % Arterial Blood Methemoglobin 0.3 0.0-1.5 % Arterial Blood Deoxyhemoglobin 5.6 H 0.0-5.0 % Charles Test Modified Blood Gas Total Hemoglobin 15.80 13.5-17.5 g/dL Blood Gas Set Respiration Rate 22.0 Blood Gas Modality Vent - ac FiO2 % 60.0 Blood Gas Tidal Volume 500.0 Blood Gas PEEP or CPAP 10.0 White Blood Count 14.2 H 4.4-10.8 10^3/uL Red Blood Count 4.73 4.5-5.90 10^6/uL Hemoglobin 14.7 13.5-17.5 g/dL Hematocrit 45.0 41.0-53.0 % Mean Corpuscular Volume 95.2 80.0-100.0 fL Mean Corpuscular Hemoglobin 31.0 28.0-32.0 pg Mean Corpuscular Hemoglobin Concent 32.6 32.0-36.0 g/dL Red Cell Distribution Width 15.9 H 11.8-14.3 % Platelet Count 206 140-450 10^3/uL Mean Platelet Volume 8.8 6.9-10.8 fL Neutrophils (%) (Auto) 86.1 H 37.0-80.0 % Lymphocytes (%) (Auto) 4.9 L 10.0-50.0 % Monocytes (%) (Auto) 8.5 0.0-12.0 % Eosinophils (%) (Auto) 0.1 0.0-7.0 % Basophils (%) (Auto) 0.4 0.0-2.0 % Neutrophils # (Auto) 12.2 H 1.6-8.6 10 ^3/uL Lymphocytes # (Auto) 0.7 0.4-5.4 10 ^3/uL Monocytes # (Auto) 1.2 0-1.3 10 ^3/uL Eosinophils # (Auto) 0 0-0.8 10 ^3/uL Basophils # (Auto) 0.1 0-0.2 10 ^3/uL Nucleated Red Blood Cells 0.1 % Sodium Level 136 136-145 mmol/L Potassium Level 4.7 3.5-5.1 mmol/L Chloride Level 100 98-107 mmol/L Carbon Dioxide Level 28 20-31 mmol/L Anion Gap 8 5-15 Blood Urea Nitrogen 51 H 9-23 mg/dL Creatinine 1.62 H 0.700-1.30 mg/dL Glomerular Filtration Rate Calc 48 >90 mL/min BUN/Creatinine Ratio 31.5 H 10.0-20.0 Serum Glucose 115 H 74-106 mg/dL Calcium Level 8.6 L 8.7-10.4 mg/dL Total Bilirubin 3.3 H 0.2-1.0 mg/dL Aspartate Amino Transferase (AST) 75 H 13-40 U/L Alanine Aminotransferase (ALT) 154 H 7-40 U/L Alkaline Phosphatase 149 H 46-116 U/L Total Protein 6.3 5.7-8.2 g/dL Albumin 3.2 3.2-4.8 g/dL Triglycerides Level 81 < 150 mg/dL Cholesterol Level 119 < 200 mg/dL LDL Cholesterol 80 < 100 mg/dL HDL Cholesterol 25 L 40-59 mg/dL Random Vancomycin Level 12.1 H 5-10 ug/mL Test 02/13/25 18:35 02/13/25 16:15 02/13/25 12:59 02/13/25 06:25 Range/Units Urine Opiates Screen Neg NEGATIVE Urine Fentanyl Screen Pos NEGATIVE Urine Barbiturates Screen Neg NEGATIVE Urine Phencyclidine Screen Neg NEGATIVE Urine Amphetamines Screen Pos NEGATIVE Urine Benzodiazepines Screen Pos NEGATIVE Urine Cocaine Screen Neg NEGATIVE Urine Cannabinoids Screen Neg NEGATIVE Troponin I High Sensitivity 163 *H </=54 ng/L Lactic Acid Level 1.6 0.4-2.0 mmol/L Blood Gas Spontaneous Rate 25 Test 02/13/25 06:15 02/13/25 02:40 02/11/25 18:54 02/11/25 18:53 Range/Units Ferritin 87.6 22-322 ng/mL Hepatitis A Antibody Total Positive H Negative Hepatitis B Surface Antigen Negative Negative Hepatitis B Surface Antibody Negative Negative Hepatitis B Core Total Antibody Negative Negative Hepatitis C Antibody Negative Negative Blood Gas Liter Flow 6.00 Blood Gas Critical Value Read Back Yes Blood Gas Notified Whom Md paige engel Blood Gas Notified Time [id number] Blood Gas Notified By Rt mikayla mcdowell Venous Blood pH 7.355 7.320-7.430 Venous Blood pCO2 at Patient Temp 47.3 38.0-54.0 mmHg Venous Blood pO2 at Patient Temp < 36.5 23.0-48.0 mmHg Venous Blood HCO3 25.8 22.0-29.0 mmol/L Venous Blood Base Excess -0.2 -2.0-3.0 mmol/L Prothrombin Time 13.6 H 9.3-11.8 sec Prothrombin Time INR 1.32 H 0.9-1.15 Activated Partial Thromboplast Time 30.8 24.5-34.5 SEC Magnesium Level 2.5 1.6-2.6 mg/dL Microbiology Date/Time Source Procedure Growth Status 02/13/25 08:15 Nose MRSA Screen - Final Complete 02/11/25 19:38 Blood Blood Culture - Preliminary NO GROWTH AFTER 48 HOURS OF INCUBATION. Resulted Assessment ALEXIS likely hemodynamic mediated on CKD stage 3, FeNa > 2% Acute respiratory failure, patient intubated on ventilator Septic shock Pneumonia secondary to Gram-positive Gram-negative bacteria HFrEF with a LVEF 20% End-stage dilated cardiomyopathy Transaminitis Polysubstance use Liver cirrhosis Plan/recommendations: Daily monitor kidney functions and urinary output Daily monitor lab ^Lasix drip 10 mg Avoid nephrotoxic agent Dopamine low-dose Octreotide Urine studies Strict I&Os IV pressors for blood pressure support IV antibiotics Assess fluid status daily Check kidney ultrasound Rest of management as per primary team Patient seen and examined by myself today on rounds with the medicine resident, I agree with his assessment and plan Case discussed with the Dr. Lutz Plan discussed with: Other (rn) MAURO FITCH RESIDENT Feb 14, 2025 12:36 MARTÍN LUTZ MD Feb 14, 2025 14:55
[2025-02-14] MEDS: FUROSEMIDE INJECTION 100 MG in SODIUM CHL 0.9% 100 ML IV SCH (12:44)
[2025-02-14 12:55] LABS: Protein, Urine < 6.0 mg/dL (1-14)
--- NOTE | 2025-02-14 15:39 | DVH ---
INDICATION: maye TECHNIQUE: Multiple real-time sonographic images of the kidneys and bladder were obtained. COMPARISON: None FINDINGS: RIGHT kidney measures 11.2 cm in length. LEFT kidney measures 7.3 cm in length. No hydronephrosis, urolithiasis, or adrenal mass. There is increase in bilateral renal cortical echogenicity. Urinary bladder is partially decompressed by Aguilar catheter Ascites noted throughout all 4 quadrants. IMPRESSION: Echogenic kidneys compatible with medical renal disease No hydronephrosis Ascites
[2025-02-14] MEDS: OCTREOTIDE ACETATE 100 MCG/ML VL SUBCUT SCH (16:31)
--- NOTE | 2025-02-14 16:39 | DVH ---
Bilateral lower extremity venous duplex Clinical History: bilateral lower extremity discoloration Comparison: None Technique: Duplex Doppler evaluation of the deep venous systems of both lower extremities from the common femoral veins to the popliteal veins including color Doppler and spectral/pulsed waveform analysis was performed. Findings: RIGHT SIDE: The common femoral vein demonstrates appropriate compressibility and waveform variability. There is compressibility/patency of the great saphenous vein at the proximal thigh. The femoral vein demonstrates appropriate compressibility and waveform variability. The deep femoral vein demonstrates appropriate compressibility and waveform variability. The popliteal vein demonstrates appropriate compressibility and waveform variability. There is normal compressibility at the tibioperoneal trunk. LEFT SIDE: The common femoral vein demonstrates appropriate compressibility and waveform variability. There is compressibility/patency of the great saphenous vein at the proximal thigh. The femoral vein demonstrates appropriate compressibility and waveform variability. The deep femoral vein demonstrates appropriate compressibility and waveform variability. The popliteal vein demonstrates appropriate compressibility and waveform variability. There is normal compressibility at the tibioperoneal trunk. Impression: 1. No right or left femoropopliteal venous thrombosis.
--- NOTE | 2025-02-14 16:43 | DVHPN2 ---
Progress Note Date Seen: Feb 14, 2025 Resident Creating Document: WILLIAMS DANG RESIDENT Medical Necessity Reason Pt with a Central, PICC or Fol: Yes The following are medically ne: Central Line, Aguilar Catheter Subjective Review of Systems Patient seen and examined, on mechanical ventilation at 50% FiO2, Levophed 8 Objective vital signs Vital Sign Date Time Temp Pulse Resp B/P (MAP) Pulse Ox O2 Delivery O2 Flow Rate FiO2 02/14/25 16:18 84 22 107/66 (80) 93 40 02/14/25 12:30 98.8 209.8 02/14/25 12:00 Mechanical Ventilator+ 02/12/25 19:30 6 Total Intake and Output 02/13/25 02/13/25 02/14/25 15:00 23:00 07:00 Intake Total 447.8 ml 366.176 ml 271.25 ml Output Total 1450 ml 1350 ml Balance 447.8 ml -1083.824 ml -1078.75 ml medications Current Medications Medications Dose Ordered Sig/Geraldo Route Start Time Stop Time Status Last Admin Dose Admin Albuterol 2.5 mg Q4HPRN PRN NEB 02/11/25 22:15 02/14/25 06:26 2.5 MG Ipratropium [place] 0.5 mg Q4HPRN PRN NEB 02/11/25 22:15 02/14/25 06:26 0.5 MG Diagnostic Test (Pha) 1 strip ACHS 02/12/25 07:00 02/14/25 11:38 1 STRIP Insulin Human Regular ACHS SC 02/12/25 07:00 02/12/25 12:40 3 UNITS Dextrose 50 ml UD PRN IV 02/11/25 22:15 Sodium Chloride 10 ml Q8HR IV 02/12/25 06:00 02/14/25 12:17 10 ML Acetaminophen/ Hydrocodone Bitart 1 tab Q4HP PRN PO 02/11/25 22:15 02/13/25 00:10 1 TAB Acetaminophen 650 mg Q6HP PRN PO 02/11/25 22:15 Morphine Sulfate 2 mg Q30M PRN IV 02/11/25 22:15 Tamsulosin HCl 0.4 mg QPM PO 02/12/25 18:00 02/12/25 17:42 0.4 MG Aspirin 81 mg DAILY PO 02/12/25 10:00 02/14/25 09:03 81 MG Famotidine 20 mg DAILY IV 02/12/25 10:00 02/14/25 09:03 20 MG Nicotine 1 patch DAILY TD 02/13/25 10:00 Norepinephrine Bitartrate 32 mg/ Sodium Chloride 250 ml @ 0.938 mls/ hr Q24H IV 02/13/25 08:45 02/14/25 12:15 2.813 MLS/HR Piperacillin Sod/ Tazobactam Sod 100 ml @ 25 mls/hr Q8HR IV 02/13/25 14:00 02/14/25 06:05 25 MLS/HR Vancomycin HCl 0 ml @ 0 mls/hr PER PHARMACY IV 02/13/25 12:00 Midazolam HCl 100 ml @ 1 mls/hr Q24H IV 02/13/25 14:30 02/13/25 14:42 1 MLS/HR Fentanyl Citrate 250 ml @ 2.5 mls/hr Q24H IV 02/13/25 14:45 02/14/25 02:59 15 MLS/HR Enoxaparin Sodium 40 mg DAILY SC 02/15/25 10:00 Octreotide Acetate 100 mcg TID SUBCUT 02/14/25 14:00 Dopamine HCl/ Dextrose 250 ml @ 4.069 mls/ hr Q24H IV 02/14/25 11:00 02/14/25 12:17 4.069 MLS/HR Furosemide 100 mg/ Sodium Chloride 110 ml @ 11 mls/hr Q10H IV 02/14/25 12:30 02/14/25 12:44 11 MLS/HR Enteral Nutritional Formula 1,000 ml 30ML/HR GT 02/14/25 12:45 Sennosides 8.6 mg HS PO 02/14/25 22:00 Examination Patient lying in bed, on mechanical ventilation General: Overweight, afebrile, palor, mucosae are moist Cardiovascular: Regular S1 and S2. No murmurs, gallops or rubs. No JVD elevation. Pedal edema Respiratory: Decreased bilateral air entry on auscultation, mechanically ventilated Abdomen: Soft, nontender, nondistended, normoactive bowel sounds, no rebound tenderness, no organomegaly, no masses. Purulent vesicles on lower abdomen. Penile swelling. Small clots and Aguilar noted. Bilateral lower extremity, cyanosed, bluish, 3+ pedal edema, minimal pulses, cold laboratory and microbiology Laboratory Tests 02/14/25 03:31 Test 02/14/25 03:31 Range/Units Serum Glucose 115 H 74-106 mg/dL Microbiology Date/Time Source Procedure Growth Status 02/13/25 08:15 Nose MRSA Screen - Final Complete 02/11/25 19:38 Blood Blood Culture - Preliminary NO GROWTH AFTER 48 HOURS OF INCUBATION. Resulted Labs and/or images reviewed: Labs reviewed by me, Image(s) reviewed by me Problem List/Assessment/Plan Problem List/Assessment/Plan Cirrhosis Acute hypoxic respiratory failure status post intubation Systolic Heart failure with reduced ejection fraction exacerbation NSTEMI Hypertension Hyperkalemia Rule out STI Acute kidney injury Peripheral arterial disease Methamphetamine use dependence Liver ultrasound shows Heterogeneous appearing liver suggesting chronic liver disease. Plan: Recommendation: Bilirubin trending up, otherwise AST/ALT stable Hepatitis panel negative Recommended starting tube feedings Follow up with the HIV, syphilis, gonorrhea, chlamydia Follow up with CMP Follow up with testicular ultrasound Plan discussed with the primary RN in which all questions have been answered Case discussed with Dr. Urena Plan discussed with: Patient Dietary Evaluation [facility] Cardiac diet, texture as tolearated when medically feasible nicotine cessation counseling Follow up with updated lab values Expected Outcomes/Goals: Improved nurition related lab values, free from nicotine WILLIAMS DANG RESIDENT Feb 14, 2025 16:43
[2025-02-14] MEDS: Jevity 1.2 Cal/Fiber 1 Liter GT SCH (17:59)
--- NOTE | 2025-02-14 18:03 | DVH ---
Indication: Penile swelling Technique: Real-time ultrasound images through the scrotum. Comparison: None Findings: Right testicle measures 3.1 x 2.4 x 2.4 cm. It has normal echogenicity and echotexture, with no focal solid or cystic mass. There is normal flow on color Doppler, with normal waveforms. The right epididymal head measures 1.1 cm,. Hypoechoic lesion in the right epididymal tail measuring 8 mm. Left testicle measures 3.2 x 2.3 x 2.1 cm. It has normal echogenicity and echotexture, with no focal solid or cystic mass. There is normal flow on color Doppler, with normal waveforms. The left epididymal head measures 1.6 cm, and has no focal masses. Extensive scrotal wall edema / thickening. Small bilateral hydroceles. Impression: Extensive scrotal wall edema / thickening. Small bilateral hydroceles. No sonographic evidence for testicular torsion. Left epididymal tail hypoechoic lesion measuring 8 mm could represent complex cyst however mass/ lesion can not be ruled out. Recommend continued imaging surveillance.
[2025-02-14] MEDS: SENNA 8.6 MG TAB PO SCH (21:42)
[2025-02-15] VITALS (109 sets, daily range): BP systolic 92–125; BP diastolic 45–65; PULSE 82–101; RESP 13–25; TEMP 97.3–98.8; O2SAT 95–100
[2025-02-15 04:01] LABS: Hematocrit 40.9 % (41.0-53.0); Hemoglobin 13.5 g/dL (13.5-17.5); Mean Corpuscular Hemoglobin 30.8 pg (28.0-32.0); Mean Corpuscular Volume 93.6 fL (80.0-100.0); Nucleated Red Blood Cells % 0.1 %
[2025-02-15 04:25] LABS: Anion Gap 8 (5-15); BUN/Creatinine Ratio 32.2 (10.0-20.0); Chloride 100 mmol/L (98-107); Magnesium 1.8 mg/dL (1.6-2.6); Potassium 3.6 mmol/L (3.5-5.1); Sodium 142 mmol/L (136-145)
[2025-02-15 04:28] LABS: Alanine Aminotransferase 105 U/L (7-40); Albumin 2.8 g/dL (3.2-4.8); Alkaline Phosphatase 119 U/L (46-116); Bilirubin, Total 2.6 mg/dL (0.2-1.0); Blood Urea Nitrogen 39 mg/dL (9-23); Calcium 8.2 mg/dL (8.7-10.4); Carbon Dioxide 34 mmol/L (20-31); Glucose 124 mg/dL (74-106); Total Protein 5.6 g/dL (5.7-8.2)
[2025-02-15 08:33] LABS: Base Excess 5.4 mmol/L (-2.0-3.0)
[2025-02-15] MEDS: ENOXAPARIN SOD 40 MG/0.4 ML SYRINGE SC SCH (09:59)
[2025-02-15] MEDS: clonazePAM 0.5 MG TAB PO SCH (10:09)
[2025-02-15] MEDS: MAGNESIUM SULFATE 1GM/100ML 100 ML IV ONE (10:11)
[2025-02-15] MEDS: VANCOMYCIN 1GM/250ML KIT 250 ML IV SCH (11:49)
--- NOTE | 2025-02-15 13:06 | DVHPN2 ---
Progress Note - Dictate Date Seen: Feb 15, 2025 Medical Necessity Reason Pt with a Central, PICC or Fol: Yes The following are medically ne: Central Line, Aguilar Catheter vital signs Vital Sign Date Time Temp Pulse Resp B/P (MAP) Pulse Ox O2 Delivery O2 Flow Rate FiO2 02/15/25 12:30 98.1 90 24 107/53 (71) 99 208.6 02/15/25 12:07 40 02/15/25 12:00 Mechanical Ventilator+ Total Intake and Output 02/14/25 02/14/25 02/15/25 15:00 23:00 07:00 Intake Total 68.645 ml 408.056 ml 497.049 ml Output Total 2725 ml 3475 ml Balance 68.645 ml -2316.944 ml -2977.951 ml medications Current Medications Medications Dose Ordered Sig/Geraldo Route Start Time Stop Time Status Last Admin Dose Admin Albuterol 2.5 mg Q4HPRN PRN NEB 02/11/25 22:15 02/15/25 06:13 2.5 MG Ipratropium [place] 0.5 mg Q4HPRN PRN NEB 02/11/25 22:15 02/15/25 06:13 0.5 MG Diagnostic Test (Pha) 1 strip ACHS 02/12/25 07:00 02/15/25 11:46 1 STRIP Insulin Human Regular ACHS SC 02/12/25 07:00 02/15/25 11:45 3 UNITS Dextrose 50 ml UD PRN IV 02/11/25 22:15 Sodium Chloride 10 ml Q8HR IV 02/12/25 06:00 02/15/25 05:52 10 ML Acetaminophen/ Hydrocodone Bitart 1 tab Q4HP PRN PO 02/11/25 22:15 02/13/25 00:10 1 TAB Acetaminophen 650 mg Q6HP PRN PO 02/11/25 22:15 Morphine Sulfate 2 mg Q30M PRN IV 02/11/25 22:15 Tamsulosin HCl 0.4 mg QPM PO 02/12/25 18:00 02/12/25 17:42 0.4 MG Aspirin 81 mg DAILY PO 02/12/25 10:00 02/15/25 09:58 81 MG Famotidine 20 mg DAILY IV 02/12/25 10:00 02/15/25 09:58 20 MG Nicotine 1 patch DAILY TD 02/13/25 10:00 Norepinephrine Bitartrate 32 mg/ Sodium Chloride 250 ml @ 0.938 mls/ hr Q24H IV 02/13/25 08:45 02/14/25 12:15 2.813 MLS/HR Piperacillin Sod/ Tazobactam Sod 100 ml @ 25 mls/hr Q8HR IV 02/13/25 14:00 02/15/25 05:52 25 MLS/HR Vancomycin HCl 0 ml @ 0 mls/hr PER PHARMACY IV 02/13/25 12:00 Midazolam HCl 100 ml @ 1 mls/hr Q24H IV 02/13/25 14:30 02/13/25 14:42 1 MLS/HR Fentanyl Citrate 250 ml @ 2.5 mls/hr Q24H IV 02/13/25 14:45 02/15/25 10:45 15 MLS/HR Enoxaparin Sodium 40 mg DAILY SC 02/15/25 10:00 02/15/25 09:59 40 MG Octreotide Acetate 100 mcg TID SUBCUT 02/14/25 14:00 02/15/25 05:52 100 MCG Dopamine HCl/ Dextrose 250 ml @ 4.069 mls/ hr Q24H IV 02/14/25 11:00 02/14/25 12:17 4.069 MLS/HR Enteral Nutritional Formula 1,000 ml 30ML/HR GT 02/14/25 12:45 02/14/25 17:59 1,000 ML Sennosides 8.6 mg HS PO 02/14/25 22:00 02/14/25 21:42 8.6 MG Vancomycin HCl 250 ml @ 250 mls/hr Q12H IV 02/15/25 11:00 02/15/25 11:49 250 MLS/HR Furosemide 60 mg BIDD IV 02/15/25 18:00 Clonazepam 0.5 mg BID PO 02/15/25 10:00 02/15/25 10:09 0.5 MG Methadone HCl 10 mg Q8HR PO 02/15/25 14:00 Quetiapine Fumarate 25 mg BID PO 02/15/25 10:00 02/15/25 10:09 25 MG Potassium Chloride 100 ml @ 50 mls/hr Q2H IV 02/15/25 12:30 02/15/25 16:29 laboratory and microbiology Laboratory Tests 02/15/25 03:10 Test 02/15/25 03:10 Range/Units Serum Glucose 124 H 74-106 mg/dL Assessment/Plan Impression Acute hypoxemic respiratory failure Small right pleural effusions S/p cardiac arrest Cardiomyopathy CHF Patient seen and examined in ICU Events On mechanical ventilation S/p intubation PEEP 5, FiO2 50% s/p right thora Labs and imaging reviewed ABG reviewed Management Vent support Titrate to maintain sats 90% or above Sedation holiday/weaning Continue antibiotics F/u cultures Bronchodilators Monitor renal function Monitor electrolytes Supplement as needed Pressors as needed for hemodynamic support To maintain a mean arterial pressure of 65 mmHg Echo report reviewed EF approximately 20% F/u cardiology General prognosis poor DVT prophylaxis Critical care time 35 minutes Dietary Evaluation Review Comments: [facility]-60 Cardiac diet, texture as tolearated when medically feasible nicotine cessation counseling Follow up with updated lab values Expected Outcomes/Goals: Improved nurition related lab values, free from nicotine Plan discussed with: Other (rn) TONA BRADFORD MD Feb 15, 2025 13:06
[2025-02-15 13:07] LABS: Glucose, Body Fluid 113.0 mg/dL (.)
--- NOTE | 2025-02-15 13:30 | DVHPN2 ---
Assessment/Plan Assessment/Plan ICU note 64 M with HTN, HFrEF 20%, DM, ascites, meth use admitted for SOB, later was found in respiratory distress, intubated and had PEA arrest, ROSC in 4 minutes. 12/ s/p thora, 2 L out. switched to lasix drip. start TF. POCUS done, minimal tapable pocket in abdomen. wound culture with prelim growth. wound care 02/15 wound culture back, changed abx to vanc and layton, starting oral meds for weaning, patient previously agitated, to decrease prevent self extubation. lasix drip switched to 60 BID. SAT SBT tomorrow. physical exam intubated, sedated on mechanical ventilator obese cannot appreciate JVD mechanical breath sounds S1 S2 systolic murmur abdomen distended b/l LE edema w/ chronic venous wounds vent ac/vc 550 24 40% PEEP 6 7.302/50/77 drips levophed off fentanyl labs reviewed acetinobacter, pseudomonas, e faecalis, MRSA in wound cultrue imaging cxr RLL opacity echo LVEF 20%, DCM, MR assessment and plan s/p PEA arrest ROSC 4 mins cardiogenic shock acute on chronic hypoxic RF acute on chronic systolic HF small R PLEF COPD with exacerbation PNA gp vs gn HFrEF 20% DCM transaminitis cirrhosis? ascites? ALEXIS likely VMN on CKD? 3 lactic acidosis meth use leukocytosis type 2 HI demand ischemia DM? chronic venous stasis wound with multiple bact ICU SAT SBT titrate levophed to maintain MAP >60 c/w mechanical vent c/w diuresis, goal net -1L daily c/w sedation, maintain RAAS -2, added methadone, klonopin, seroquel trend lactate, cr, LFT c/w vanc , zosyn switched to layton avoid fever VAP bundle bronchodilators hold GDMT until off pressors send A1C, lipid, tsh wound care keep K 4 Ph 3 Mg 2 Diet jevity to goal DVT PPX lovenox GI PPX protonix Lines RIJ TLC NGT jaffe Full code condition critical prognosis poor critical care time 45 minutes Plan discussed with: Other My Orders Orders - SYEDA VILLALOBOS MD Procedure Category Date Status Time Ventilator Orders RT 02/15/25 Transmitted 09:50 Furosemide Injection PHA 02/15/25 In Process (Lasix Injection) 18:00 Basic Metabolic Panel LAB 02/16/25 Verified 04:00 Complete Blood Count LAB 02/16/25 Verified 04:00 Magnesium LAB 02/16/25 Verified 04:00 Phosphorus LAB 02/16/25 Verified 04:00 Clonazepam Tablet PHA 02/15/25 In Process (Klonopin Tablet) 10:00 Methadone Hcl Tablet PHA 02/15/25 In Process (Methadone Hcl Tabl 14:00 Quetiapine Fumarate PHA 02/15/25 In Process Tablet (Seroquel Tab 10:00 Respiratory Misc. RT 02/15/25 Transmitted Order 09:50 Meropenem 1gm PHA 02/15/25 Verified Q8h(Gfr>50) 14:00 Date of Service: Feb 15, 2025 Billing Provider: SYEDA VILLALOBOS MD Common Visit Codes: 60963-[id number] CARE 30-74 MIN SYEDA VILLALOBOS MD Feb 15, 2025 13:30
[2025-02-15] MEDS: POTASSIUM CHL 20MEQ/100ML 100 ML IV SCH (13:32)
[2025-02-15] MEDS: METHADONE HCL 10 MG TAB PO SCH (13:46)
[2025-02-15] MEDS: MEROPENEM 1GM IVPB 50 ML IV SCH (13:50)
--- NOTE | 2025-02-15 14:00 | DVHPN2 ---
Progress Note Date Seen: Feb 15, 2025 Resident Creating Document: MAURO FITCH RESIDENT Medical Necessity Reason Pt with a Central, PICC or Fol: Yes The following are medically ne: Central Line, Aguilar Catheter Subjective Review of Systems Patient seen and examined at the bedside. Unable to obtain ROS due to patient's clinical status currently intubated and on mechanical ventilation. Review of Systems: RESPIRATORY:Abnormal Other Systems: Patient seen and examined by myself today in rounds with the medicien residentBetsy withhis assessment and plan Patient remained intuubated on ventilator Objective vital signs Vital Sign Date Time Temp Pulse Resp B/P (MAP) Pulse Ox O2 Delivery O2 Flow Rate FiO2 02/15/25 13:49 87 24 103/54 (70) 97 30 02/15/25 12:30 98.1 208.6 02/15/25 12:00 Mechanical Ventilator+ Total Intake and Output 02/14/25 02/14/25 02/15/25 15:00 23:00 07:00 Intake Total 68.645 ml 408.056 ml 497.049 ml Output Total 2725 ml 3475 ml Balance 68.645 ml -2316.944 ml -2977.951 ml medications Current Medications Medications Dose Ordered Sig/Geraldo Route Start Time Stop Time Status Last Admin Dose Admin Albuterol 2.5 mg Q4HPRN PRN NEB 02/11/25 22:15 02/15/25 06:13 2.5 MG Ipratropium [place] 0.5 mg Q4HPRN PRN NEB 02/11/25 22:15 02/15/25 06:13 0.5 MG Diagnostic Test (Pha) 1 strip ACHS 02/12/25 07:00 02/15/25 11:46 1 STRIP Insulin Human Regular ACHS SC 02/12/25 07:00 02/15/25 11:45 3 UNITS Dextrose 50 ml UD PRN IV 02/11/25 22:15 Sodium Chloride 10 ml Q8HR IV 02/12/25 06:00 02/15/25 13:32 10 ML Acetaminophen/ Hydrocodone Bitart 1 tab Q4HP PRN PO 02/11/25 22:15 02/13/25 00:10 1 TAB Acetaminophen 650 mg Q6HP PRN PO 02/11/25 22:15 Morphine Sulfate 2 mg Q30M PRN IV 02/11/25 22:15 Tamsulosin HCl 0.4 mg QPM PO 02/12/25 18:00 02/12/25 17:42 0.4 MG Aspirin 81 mg DAILY PO 02/12/25 10:00 02/15/25 09:58 81 MG Famotidine 20 mg DAILY IV 02/12/25 10:00 02/15/25 09:58 20 MG Nicotine 1 patch DAILY TD 02/13/25 10:00 Norepinephrine Bitartrate 32 mg/ Sodium Chloride 250 ml @ 0.938 mls/ hr Q24H IV 02/13/25 08:45 02/14/25 12:15 2.813 MLS/HR Vancomycin HCl 0 ml @ 0 mls/hr PER PHARMACY IV 02/13/25 12:00 Midazolam HCl 100 ml @ 1 mls/hr Q24H IV 02/13/25 14:30 02/13/25 14:42 1 MLS/HR Fentanyl Citrate 250 ml @ 2.5 mls/hr Q24H IV 02/13/25 14:45 02/15/25 10:45 15 MLS/HR Enoxaparin Sodium 40 mg DAILY SC 02/15/25 10:00 02/15/25 09:59 40 MG Octreotide Acetate 100 mcg TID SUBCUT 02/14/25 14:00 02/15/25 13:48 100 MCG Dopamine HCl/ Dextrose 250 ml @ 4.069 mls/ hr Q24H IV 02/14/25 11:00 02/14/25 12:17 4.069 MLS/HR Enteral Nutritional Formula 1,000 ml 30ML/HR GT 02/14/25 12:45 02/14/25 17:59 1,000 ML Sennosides 8.6 mg HS PO 02/14/25 22:00 02/14/25 21:42 8.6 MG Vancomycin HCl 250 ml @ 250 mls/hr Q12H IV 02/15/25 11:00 02/15/25 11:49 250 MLS/HR Furosemide 60 mg BIDD IV 02/15/25 18:00 Clonazepam 0.5 mg BID PO 02/15/25 10:00 02/15/25 10:09 0.5 MG Methadone HCl 10 mg Q8HR PO 02/15/25 14:00 02/15/25 13:46 10 MG Quetiapine Fumarate 25 mg BID PO 02/15/25 10:00 02/15/25 10:09 25 MG Potassium Chloride 100 ml @ 50 mls/hr Q2H IV 02/15/25 12:30 02/15/25 16:29 02/15/25 13:32 50 MLS/HR Meropenem 50 ml @ 17 mls/hr Q8HR IV 02/15/25 14:00 02/15/25 13:50 17 MLS/HR Lactulose 30 ml DAILY PO 02/16/25 10:00 Examination Pt is lying on bed General Appearance: Sedated and intubated on mechanical v HEENT: Atraumatic, Mucous membranes moist/pink Respiratory: diminished Cardiovascular: Regular rate, Normal S1, Normal S2, No murmurs Abdominal: Active bowel sounds, Soft, no distention, Extremities: 3+ BLE with the bluish discoloration Skin: bluish discoloration with eczematous rash in both lower extremities Neuro: deferred Nurse was there as time clock mechanic during examination laboratory and microbiology Laboratory Tests 02/15/25 03:10 Test 02/15/25 03:10 Range/Units Serum Glucose 124 H 74-106 mg/dL Microbiology Date/Time Source Procedure Growth Status 02/13/25 08:15 Nose MRSA Screen - Final Complete 02/11/25 19:38 Blood Blood Culture - Preliminary NO GROWTH AFTER 72 HOURS OF INCUBATION. Resulted Labs and/or images reviewed: Labs reviewed by me, Image(s) reviewed by me Problem List/Assessment/Plan Problem List/Assessment/Plan ALEXIS likely hemodynamic mediated on CKD stage 3, FeNa > 2%-improved Acute respiratory failure, patient intubated on ventilator Septic shock Pneumonia secondary to Gram-positive Gram-negative bacteria HFrEF with a LVEF 20% End-stage dilated cardiomyopathy Transaminitis Polysubstance use Liver cirrhosis Plan/recommendations: Daily monitor kidney functions and urinary output-improved Daily monitor lab ^Lasix drip 10 mg Avoid nephrotoxic agent Dopamine low-dose Octreotide Urine studies Strict I&Os IV pressors for blood pressure support IV antibiotics Assess fluid status daily Rest of management as per primary team Case discussed with the Dr. Sarkar Plan discussed with: Other (rn) My Orders My Orders Orders - MAURO FITCH RESIDENT Procedure Category Date Status Time Potassium Chl PHA 02/15/25 In Process 20meq/100ml 12:30 Dietary Evaluation Review Comments: CCHO-60 Cardiac diet, texture as tolearated when medically feasible nicotine cessation counseling Follow up with updated lab values Expected Outcomes/Goals: Improved nurition related lab values, free from nicotine MAURO FITCH RESIDENT Feb 15, 2025 14:00 MARTÍN SARKAR MD Feb 15, 2025 15:58
--- NOTE | 2025-02-15 17:13 | DVHPN2 ---
Progress Note Date Seen: Feb 15, 2025 Resident Creating Document: WILLIAMS DANG RESIDENT Medical Necessity Reason Pt with a Central, PICC or Fol: Yes The following are medically ne: Central Line, Aguilar Catheter Subjective Review of Systems On tube feedings. Objective vital signs Vital Sign Date Time Temp Pulse Resp B/P (MAP) Pulse Ox O2 Delivery O2 Flow Rate FiO2 02/15/25 16:06 89 24 102/51 (68) 98 30 02/15/25 16:00 Mechanical Ventilator+ 02/15/25 16:00 98.4 209.1 Total Intake and Output 02/14/25 02/14/25 02/15/25 15:00 23:00 07:00 Intake Total 68.645 ml 408.056 ml 502.118 ml Output Total 2725 ml 3475 ml Balance 68.645 ml -2316.944 ml -2972.882 ml medications Current Medications Medications Dose Ordered Sig/Geraldo Route Start Time Stop Time Status Last Admin Dose Admin Albuterol 2.5 mg Q4HPRN PRN NEB 02/11/25 22:15 02/15/25 06:13 2.5 MG Ipratropium [place] 0.5 mg Q4HPRN PRN NEB 02/11/25 22:15 02/15/25 06:13 0.5 MG Diagnostic Test (Pha) 1 strip ACHS 02/12/25 07:00 02/15/25 11:46 1 STRIP Insulin Human Regular ACHS SC 02/12/25 07:00 02/15/25 11:45 3 UNITS Dextrose 50 ml UD PRN IV 02/11/25 22:15 Sodium Chloride 10 ml Q8HR IV 02/12/25 06:00 02/15/25 13:32 10 ML Acetaminophen/ Hydrocodone Bitart 1 tab Q4HP PRN PO 02/11/25 22:15 02/13/25 00:10 1 TAB Acetaminophen 650 mg Q6HP PRN PO 02/11/25 22:15 Morphine Sulfate 2 mg Q30M PRN IV 02/11/25 22:15 Tamsulosin HCl 0.4 mg QPM PO 02/12/25 18:00 02/12/25 17:42 0.4 MG Aspirin 81 mg DAILY PO 02/12/25 10:00 02/15/25 09:58 81 MG Famotidine 20 mg DAILY IV 02/12/25 10:00 02/15/25 09:58 20 MG Nicotine 1 patch DAILY TD 02/13/25 10:00 Norepinephrine Bitartrate 32 mg/ Sodium Chloride 250 ml @ 0.938 mls/ hr Q24H IV 02/13/25 08:45 02/14/25 12:15 2.813 MLS/HR Vancomycin HCl 0 ml @ 0 mls/hr PER PHARMACY IV 02/13/25 12:00 Midazolam HCl 100 ml @ 1 mls/hr Q24H IV 02/13/25 14:30 02/13/25 14:42 1 MLS/HR Fentanyl Citrate 250 ml @ 2.5 mls/hr Q24H IV 02/13/25 14:45 02/15/25 10:45 15 MLS/HR Enoxaparin Sodium 40 mg DAILY SC 02/15/25 10:00 02/15/25 09:59 40 MG Octreotide Acetate 100 mcg TID SUBCUT 02/14/25 14:00 02/15/25 13:48 100 MCG Dopamine HCl/ Dextrose 250 ml @ 4.069 mls/ hr Q24H IV 02/14/25 11:00 02/14/25 12:17 4.069 MLS/HR Enteral Nutritional Formula 1,000 ml 30ML/HR GT 02/14/25 12:45 02/14/25 17:59 1,000 ML Sennosides 8.6 mg HS PO 02/14/25 22:00 02/14/25 21:42 8.6 MG Vancomycin HCl 250 ml @ 250 mls/hr Q12H IV 02/15/25 11:00 02/15/25 11:49 250 MLS/HR Furosemide 60 mg BIDD IV 02/15/25 18:00 Clonazepam 0.5 mg BID PO 02/15/25 10:00 02/15/25 10:09 0.5 MG Methadone HCl 10 mg Q8HR PO 02/15/25 14:00 02/15/25 13:46 10 MG Quetiapine Fumarate 25 mg BID PO 02/15/25 10:00 02/15/25 10:09 25 MG Meropenem 50 ml @ 17 mls/hr Q8HR IV 02/15/25 14:00 02/15/25 13:50 17 MLS/HR Lactulose 30 ml DAILY PO 02/16/25 10:00 Examination Patient lying in bed, on mechanical ventilation General: Overweight, afebrile, palor, mucosae are moist Cardiovascular: Regular S1 and S2. No murmurs, gallops or rubs. No JVD elevation. Pedal edema Respiratory: Decreased bilateral air entry on auscultation, mechanically ventilated Abdomen: Soft, nontender, nondistended, normoactive bowel sounds, no rebound tenderness, no organomegaly, no masses. Purulent vesicles on lower abdomen. Penile swelling. Small clots and Aguilar noted. Bilateral lower extremity, cyanosed, bluish, 3+ pedal edema, minimal pulses, cold laboratory and microbiology Laboratory Tests 02/15/25 03:10 Test 02/15/25 03:10 Range/Units Serum Glucose 124 H 74-106 mg/dL Microbiology Date/Time Source Procedure Growth Status 02/13/25 08:15 Nose MRSA Screen - Final Complete 02/11/25 19:38 Blood Blood Culture - Preliminary NO GROWTH AFTER 72 HOURS OF INCUBATION. Resulted Labs and/or images reviewed: Labs reviewed by me, Image(s) reviewed by me Problem List/Assessment/Plan Problem List/Assessment/Plan Cirrhosis Acute hypoxic respiratory failure status post intubation Systolic Heart failure with reduced ejection fraction exacerbation NSTEMI Hypertension Hyperkalemia Rule out STI Acute kidney injury Peripheral arterial disease Methamphetamine use dependence Liver ultrasound shows Heterogeneous appearing liver suggesting chronic liver disease. Plan: Recommendation: LFTs trending down. Continue lactulose 30 mL daily. Consider urology consultation for epididymis cyst versus mass Hepatitis panel negative Continue tube feedings HIV, syphilis negative. Gonorrhea and chlamydia pending Follow up with CMP Plan discussed with the primary RN in which all questions have been answered Case discussed with Dr. Urena Plan discussed with: Other (Notes Rakesh) My Orders My Orders Orders - WILLIAMS DANG Procedure Category Date Status Time Lactulose Oral PHA 02/16/25 In Process 10:00 * Urology Consult CONS 02/15/25 Transmitted 13:35 Dietary Evaluation Review Comments: CCHO-60 Cardiac diet, texture as tolearated when medically feasible nicotine cessation counseling Follow up with updated lab values Expected Outcomes/Goals: Improved nurition related lab values, free from nicotine WILLIAMS DANG RESIDENT Feb 15, 2025 17:13
[2025-02-15] MEDS: FUROSEMIDE 100 MG/10ML VIAL IV SCH (18:02)
[2025-02-16] VITALS (110 sets, daily range): BP systolic 93–120; BP diastolic 51–71; PULSE 84–109; RESP 14–38; TEMP 98.1–99.1; O2SAT 95–100
[2025-02-16 04:22] LABS: Sodium 138 mmol/L (136-145)
[2025-02-16 04:23] LABS: Anion Gap 9 (5-15)
[2025-02-16 04:25] LABS: Hematocrit 38.8 % (41.0-53.0); Hemoglobin 12.6 g/dL (13.5-17.5); Mean Corpuscular Hemoglobin 29.4 pg (28.0-32.0); Mean Corpuscular Volume 90.5 fL (80.0-100.0); Nucleated Red Blood Cells % 0.2 %
[2025-02-16 04:28] LABS: Glucose 103 mg/dL (74-106)
[2025-02-16 04:29] LABS: BUN/Creatinine Ratio 40.2 (10.0-20.0); Magnesium 2.1 mg/dL (1.6-2.6)
[2025-02-16 04:33] LABS: Blood Urea Nitrogen 76 mg/dL (9-23); Calcium 7.8 mg/dL (8.7-10.4); Carbon Dioxide 37 mmol/L (20-31); Chloride 92 mmol/L (98-107); Potassium 3.1 mmol/L (3.5-5.1)
[2025-02-16] MEDS: POTASSIUM CHL 20MEQ/100ML 100 ML IV SCH (06:49)
[2025-02-16 07:16] LABS: Base Excess 11.6 mmol/L (-2.0-3.0)
[2025-02-16] MEDS: LACTULOSE 20Gm/30ML SOLN PO SCH (09:11)
--- NOTE | 2025-02-16 11:28 | DVHPN2 ---
Progress Note Date Seen: Feb 16, 2025 Resident Creating Document: WILLIAMS DANG RESIDENT Medical Necessity Reason Pt with a Central, PICC or Fol: Yes The following are medically ne: Central Line, Aguilar Catheter Subjective Review of Systems Abdomen soft, normoactive. Continue tube feedings. Patient reports: No new complaints Objective vital signs Vital Sign Date Time Temp Pulse Resp B/P (MAP) Pulse Ox O2 Delivery O2 Flow Rate FiO2 02/16/25 10:30 98.4 92 24 111/63 (79) 99 209.1 02/16/25 09:49 30 02/16/25 06:00 Mechanical Ventilator+ Total Intake and Output 02/15/25 02/15/25 02/16/25 15:00 23:00 07:00 Intake Total 653.552 ml 1421.483 ml 742.552 ml Output Total 1950 ml 1450 ml Balance 653.552 ml -528.517 ml -707.448 ml medications Current Medications Medications Dose Ordered Sig/Geraldo Route Start Time Stop Time Status Last Admin Dose Admin Albuterol 2.5 mg Q4HPRN PRN NEB 02/11/25 22:15 02/15/25 06:13 2.5 MG Ipratropium [place] 0.5 mg Q4HPRN PRN NEB 02/11/25 22:15 02/15/25 06:13 0.5 MG Diagnostic Test (Pha) 1 strip ACHS 02/12/25 07:00 02/16/25 06:30 1 STRIP Insulin Human Regular ACHS SC 02/12/25 07:00 02/15/25 22:05 2 UNITS Dextrose 50 ml UD PRN IV 02/11/25 22:15 Sodium Chloride 10 ml Q8HR IV 02/12/25 06:00 02/16/25 06:30 10 ML Acetaminophen/ Hydrocodone Bitart 1 tab Q4HP PRN PO 02/11/25 22:15 02/13/25 00:10 1 TAB Acetaminophen 650 mg Q6HP PRN PO 02/11/25 22:15 Morphine Sulfate 2 mg Q30M PRN IV 02/11/25 22:15 Tamsulosin HCl 0.4 mg QPM PO 02/12/25 18:00 02/15/25 18:02 0.4 MG Aspirin 81 mg DAILY PO 02/12/25 10:00 02/16/25 09:13 81 MG Famotidine 20 mg DAILY IV 02/12/25 10:00 02/16/25 09:12 20 MG Nicotine 1 patch DAILY TD 02/13/25 10:00 Norepinephrine Bitartrate 32 mg/ Sodium Chloride 250 ml @ 0.938 mls/ hr Q24H IV 02/13/25 08:45 02/14/25 12:15 2.813 MLS/HR Vancomycin HCl 0 ml @ 0 mls/hr PER PHARMACY IV 02/13/25 12:00 Midazolam HCl 100 ml @ 1 mls/hr Q24H IV 02/13/25 14:30 02/13/25 14:42 1 MLS/HR Fentanyl Citrate 250 ml @ 2.5 mls/hr Q24H IV 02/13/25 14:45 02/15/25 10:45 15 MLS/HR Enoxaparin Sodium 40 mg DAILY SC 02/15/25 10:00 02/16/25 09:12 40 MG Octreotide Acetate 100 mcg TID SUBCUT 02/14/25 14:00 02/16/25 06:30 100 MCG Dopamine HCl/ Dextrose 250 ml @ 4.069 mls/ hr Q24H IV 02/14/25 11:00 02/14/25 12:17 4.069 MLS/HR Enteral Nutritional Formula 1,000 ml 30ML/HR GT 02/14/25 12:45 02/14/25 17:59 1,000 ML Sennosides 8.6 mg HS PO 02/14/25 22:00 02/15/25 22:08 8.6 MG Vancomycin HCl 250 ml @ 250 mls/hr Q12H IV 02/15/25 11:00 02/15/25 23:53 250 MLS/HR Furosemide 60 mg BIDD IV 02/15/25 18:00 02/16/25 06:29 60 MG Clonazepam 0.5 mg BID PO 02/15/25 10:00 02/16/25 09:13 0.5 MG Methadone HCl 10 mg Q8HR PO 02/15/25 14:00 02/16/25 09:13 10 MG Quetiapine Fumarate 25 mg BID PO 02/15/25 10:00 02/16/25 09:13 25 MG Meropenem 50 ml @ 17 mls/hr Q8HR IV 02/15/25 14:00 02/16/25 06:50 17 MLS/HR Lactulose 30 ml DAILY PO 02/16/25 10:00 02/16/25 09:11 30 ML Examination Patient lying in bed, on mechanical ventilation General: Overweight, afebrile, palor, mucosae are moist Cardiovascular: Regular S1 and S2. No murmurs, gallops or rubs. No JVD elevation. Pedal edema Respiratory: Decreased bilateral air entry on auscultation, mechanically ventilated Abdomen: Soft, nontender, nondistended, normoactive bowel sounds, no rebound tenderness, no organomegaly, no masses. Purulent vesicles on lower abdomen. Penile swelling. Small clots and Aguilar noted. Bilateral lower extremity, cyanosed, bluish, 3+ pedal edema, minimal pulses, cold laboratory and microbiology Laboratory Tests 02/16/25 03:25 Test 02/16/25 03:25 Range/Units Serum Glucose 103 74-106 mg/dL Microbiology Date/Time Source Procedure Growth Status 02/13/25 08:15 Nose MRSA Screen - Final Complete 02/11/25 19:38 Blood Blood Culture - Preliminary NO GROWTH AFTER 72 HOURS OF INCUBATION. Resulted Labs and/or images reviewed: Labs reviewed by me, Image(s) reviewed by me Problem List/Assessment/Plan Problem List/Assessment/Plan Cirrhosis Acute hypoxic respiratory failure status post intubation Systolic Heart failure with reduced ejection fraction exacerbation NSTEMI Hypertension Hyperkalemia Rule out STI Acute kidney injury Peripheral arterial disease Methamphetamine use dependence Liver ultrasound shows Heterogeneous appearing liver suggesting chronic liver disease. Plan: Recommendation: H&H stable. Monitor CMP in a.m.. Continue lactulose 30 mL daily. Consider urology consultation for epididymis cyst versus mass Hepatitis panel negative Continue tube feedings HIV, syphilis negative. Gonorrhea and chlamydia pending Protonix 40 mg daily Plan discussed with the primary RN in which all questions have been answered Case discussed with Dr. Urena Plan discussed with: Patient My Orders My Orders Orders - WILLIAMS DANG RESIDENT Procedure Category Date Status Time Lactulose Oral PHA 02/16/25 In Process 10:00 * Urology Consult CONS 02/15/25 Transmitted 17:13 Dietary Evaluation Review Comments: CCHO-60 Cardiac diet, texture as tolearated when medically feasible nicotine cessation counseling Follow up with updated lab values Expected Outcomes/Goals: Improved nurition related lab values, free from nicotine ALI,WILLIAMS RESIDENT Feb 16, 2025 11:28
--- NOTE | 2025-02-16 11:35 | DVHPN2 ---
Progress Note Date Seen: Feb 16, 2025 Resident Creating Document: MAURO FITCH RESIDENT Medical Necessity Reason Pt with a Central, PICC or Fol: Yes The following are medically ne: Central Line, Aguilar Catheter Subjective Changes from previous H/P or p: No Changes Review of Systems: RESPIRATORY:Abnormal Other Systems: Patient seen and examined by myself today on rounds with the resident, I agree with his assessment and plan Patient remained intubated on ventilator Objective vital signs Vital Sign Date Time Temp Pulse Resp B/P (MAP) Pulse Ox O2 Delivery O2 Flow Rate FiO2 02/16/25 10:30 98.4 92 24 111/63 (79) 99 209.1 02/16/25 09:49 30 02/16/25 06:00 Mechanical Ventilator+ Total Intake and Output 02/15/25 02/15/25 02/16/25 15:00 23:00 07:00 Intake Total 653.552 ml 1421.483 ml 742.552 ml Output Total 1950 ml 1450 ml Balance 653.552 ml -528.517 ml -707.448 ml medications Current Medications Medications Dose Ordered Sig/Geraldo Route Start Time Stop Time Status Last Admin Dose Admin Albuterol 2.5 mg Q4HPRN PRN NEB 02/11/25 22:15 02/15/25 06:13 2.5 MG Ipratropium [place] 0.5 mg Q4HPRN PRN NEB 02/11/25 22:15 02/15/25 06:13 0.5 MG Diagnostic Test (Pha) 1 strip ACHS 02/12/25 07:00 02/16/25 11:30 1 STRIP Insulin Human Regular ACHS SC 02/12/25 07:00 02/15/25 22:05 2 UNITS Dextrose 50 ml UD PRN IV 02/11/25 22:15 Sodium Chloride 10 ml Q8HR IV 02/12/25 06:00 02/16/25 06:30 10 ML Acetaminophen/ Hydrocodone Bitart 1 tab Q4HP PRN PO 02/11/25 22:15 02/13/25 00:10 1 TAB Acetaminophen 650 mg Q6HP PRN PO 02/11/25 22:15 Morphine Sulfate 2 mg Q30M PRN IV 02/11/25 22:15 Tamsulosin HCl 0.4 mg QPM PO 02/12/25 18:00 02/15/25 18:02 0.4 MG Aspirin 81 mg DAILY PO 02/12/25 10:00 02/16/25 09:13 81 MG Nicotine 1 patch DAILY TD 02/13/25 10:00 Norepinephrine Bitartrate 32 mg/ Sodium Chloride 250 ml @ 0.938 mls/ hr Q24H IV 02/13/25 08:45 02/14/25 12:15 2.813 MLS/HR Vancomycin HCl 0 ml @ 0 mls/hr PER PHARMACY IV 02/13/25 12:00 Midazolam HCl 100 ml @ 1 mls/hr Q24H IV 02/13/25 14:30 02/13/25 14:42 1 MLS/HR Fentanyl Citrate 250 ml @ 2.5 mls/hr Q24H IV 02/13/25 14:45 02/15/25 10:45 15 MLS/HR Enoxaparin Sodium 40 mg DAILY SC 02/15/25 10:00 02/16/25 09:12 40 MG Octreotide Acetate 100 mcg TID SUBCUT 02/14/25 14:00 02/16/25 06:30 100 MCG Dopamine HCl/ Dextrose 250 ml @ 4.069 mls/ hr Q24H IV 02/14/25 11:00 02/14/25 12:17 4.069 MLS/HR Enteral Nutritional Formula 1,000 ml 30ML/HR GT 02/14/25 12:45 02/14/25 17:59 1,000 ML Sennosides 8.6 mg HS PO 02/14/25 22:00 02/15/25 22:08 8.6 MG Vancomycin HCl 250 ml @ 250 mls/hr Q12H IV 02/15/25 11:00 02/16/25 11:30 250 MLS/HR Furosemide 60 mg BIDD IV 02/15/25 18:00 02/16/25 06:29 60 MG Clonazepam 0.5 mg BID PO 02/15/25 10:00 02/16/25 09:13 0.5 MG Methadone HCl 10 mg Q8HR PO 02/15/25 14:00 02/16/25 09:13 10 MG Quetiapine Fumarate 25 mg BID PO 02/15/25 10:00 02/16/25 09:13 25 MG Meropenem 50 ml @ 17 mls/hr Q8HR IV 02/15/25 14:00 02/16/25 06:50 17 MLS/HR Lactulose 30 ml DAILY PO 02/16/25 10:00 02/16/25 09:11 30 ML Pantoprazole Sodium 40 mg DAILY IV 02/17/25 10:00 UNV Examination Pt is lying on bed General Appearance: Sedated and intubated on mechanical v HEENT: Atraumatic, Mucous membranes moist/pink Respiratory: diminished Cardiovascular: Regular rate, Normal S1, Normal S2, No murmurs Abdominal: Active bowel sounds, Soft, no distention, Extremities: 3+ BLE with the bluish discoloration Skin: bluish discoloration with eczematous rash in both lower extremities Neuro: deferred Nurse was there as magician/illusionist during examination laboratory and microbiology Laboratory Tests 02/16/25 03:25 Test 02/16/25 03:25 Range/Units Serum Glucose 103 74-106 mg/dL Microbiology Date/Time Source Procedure Growth Status 02/13/25 08:15 Nose MRSA Screen - Final Complete 02/11/25 19:38 Blood Blood Culture - Preliminary NO GROWTH AFTER 72 HOURS OF INCUBATION. Resulted Labs and/or images reviewed: Labs reviewed by me, Image(s) reviewed by me Problem List/Assessment/Plan Problem List/Assessment/Plan ALEXIS likely hemodynamic mediated on CKD stage 3, FeNa > 2%-improved Acute respiratory failure, patient intubated on ventilator Septic shock Pneumonia secondary to Gram-positive Gram-negative bacteria HFrEF with a LVEF 20% End-stage dilated cardiomyopathy Transaminitis Polysubstance use Liver cirrhosis Hypokalemia Plan/recommendations: Daily monitor kidney functions and urinary output-improved Daily monitor lab Decrease Lasix drip 4 mg/h Avoid nephrotoxic agent KCL replacement Dopamine low-dose Octreotide Urine studies Strict I&Os IV pressors for blood pressure support IV antibiotics Assess fluid status daily Rest of management as per primary team Case discussed with the Dr. Sarkar Plan discussed with: Other (rn) Dietary Evaluation Review Comments: CCHO-60 Cardiac diet, texture as tolearated when medically feasible nicotine cessation counseling Follow up with updated lab values Expected Outcomes/Goals: Improved nurition related lab values, free from nicotine MAURO FITCH RESIDENT Feb 16, 2025 11:35 MARTÍN SARKAR MD Feb 16, 2025 13:12
[2025-02-16] MEDS: POTASSIUM CHL 20MEQ/100ML 100 ML IV ONE (12:00)
--- NOTE | 2025-02-16 12:00 | DVHPN2 ---
Assessment/Plan Assessment/Plan ICU note 64 M with HTN, HFrEF 20%, DM, ascites, meth use admitted for SOB, later was found in respiratory distress, intubated and had PEA arrest, ROSC in 4 minutes. 12/ s/p thora, 2 L out. switched to lasix drip. start TF. POCUS done, minimal tapable pocket in abdomen. wound culture with prelim growth. wound care 02/15 wound culture back, changed abx to vanc and layton, starting oral meds for weaning, patient previously agitated, to decrease prevent self extubation. lasix drip switched to 60 BID. SAT SBT tomorrow. 02/16 hold diuresis today, POCUS with improving IVC, off sedation, not waking up still. physical exam intubated on mechanical ventilator obese cannot appreciate JVD mechanical breath sounds S1 S2 systolic murmur abdomen distended b/l LE edema w/ chronic venous wounds vent ac/vc 550 20 40% PEEP 6 7.302/50/77 drips levophed off fentanyl off labs reviewed acetinobacter, pseudomonas, e faecalis, MRSA in wound cultrue imaging cxr RLL opacity echo LVEF 20%, DCM, MR assessment and plan s/p PEA arrest ROSC 4 mins cardiogenic shock acute on chronic hypoxic RF acute on chronic systolic HF small R PLEF COPD with exacerbation PNA gp vs gn HFrEF 20% DCM transaminitis cirrhosis? ascites? ALEXIS likely VMN on CKD? 3 lactic acidosis meth use leukocytosis type 2 MS demand ischemia DM? chronic venous stasis wound with multiple bact L testicular mass? ICU SAT SBT titrate levophed to maintain MAP >60 c/w mechanical vent hold diuresis c/w sedation, maintain RAAS -2, added methadone, klonopin, seroquel trend lactate, cr, LFT c/w vanc , zosyn switched to layton avoid fever VAP bundle bronchodilators hold GDMT until off pressors send A1C, lipid, tsh wound care daily SAT SBT keep K 4 Ph 3 Mg 2 Diet jevity to goal DVT PPX lovenox GI PPX protonix Lines RIJ TLC NGT jaffe Full code condition critical prognosis poor critical care time 40 minutes Plan discussed with: Other My Orders Orders - SYEDA VILLALOBOS MD Procedure Category Date Status Time Meropenem 1gm Ivpb PHA 02/15/25 In Process (Merrem 1gm/50ml) 14:00 *Consult Dr. Arellano CONS 02/15/25 Transmitted Romel 13:41 Ventilator Orders RT 02/16/25 Transmitted 11:56 Date of Service: Feb 16, 2025 Billing Provider: SYEDA VILLALOBOS MD Common Visit Codes: 63383-[id number] CARE 30-74 MIN SYEDA VILLALOBOS MD Feb 16, 2025 12:00
[2025-02-16 12:50] LABS: Alkaline Phosphatase 103.0 U/L (46-116)
[2025-02-16 12:53] LABS: Alanine Aminotransferase 80.0 U/L (7-40); Albumin 2.7 g/dL (3.2-4.8); Bilirubin, Direct 1.1 mg/dL (<0.3); Bilirubin, Total 1.8 mg/dL (0.2-1.0); Total Protein 5.5 g/dL (5.7-8.2)
[2025-02-16] MEDS: PANTOPRAZOLE 40 MG/10 ML VIAL INJ IV ONE (13:32)
--- NOTE | 2025-02-16 14:13 | DVHNC2 ---
Procedure - Bronchoscopy procedure note: Indications: Left lung atelectasis, likely mucous plugging. Medicines: See RN notes. Complications: None Procedure: Patient medications and allergies reviewed. The risks and benefits of the procedure and the sedation options and risk were discussed with the patient's healthcare proxy. All questions were answered and informed consent was obtained. Patient identification and proposed procedure were verified prior to the procedure by the physician, and a nurse, and the respiratory therapist in ICU room. The heart rate, respiratory rate, oxygen saturations, blood pressure, adequacy of pulmonary ventilation, and response to care were monitored throug hout the procedure. The physical status of the patient was reassessed after the procedure. After obtaining informed consent, the bronchoscope was introduced through the endotracheal tube and advanced into the trachea bronchial tree of both lungs. The procedure was accomplished without difficulty. The patient tolerated the procedure well. Findings: The trachea is in normal caliber. The veronica is sharp. The tracheobronchial tree of the right lung was examined to at least the first subsegmental level. The bronchial mucosa and anatomy in the right lung are normal. There are no endobronchial lesions. There was scat secretions. Right middle lobe (RML) Bronchoalveolar lavage (BAL) obtained. RML BAL sent for gram stain and culture. The left upper lobe, lingula, and left lower lobe were examined to at least the first subsegmental level. Bronchial mucosa and anatomy in the left upper lobe and lingula are normal. There were no endobronchial lesions. There was copious whitish secretions from left main stem bronchus onward throughout L1-L10. Mucous plugging removed from L1-L10. There was no active bleeding at the completion of the procedure. Estimated blood loss: Less than 5 mL. Impression: Left lung atelectasis due to mucous plugging Mucous plugging from L1-L10 RML BAL performed Recommendation: Follow-up RML BAL results. Procedure codes: 31687, bronchoscopy, rigid and flexible, including fluoroscopic guidance, one performed; with bronchial endobronchial broncho-alveolar lavage, single or multiple sites Visit Coding Pulmonary Billing Provider: DOLORES VELAZQUEZ MD Date of Service if different f: Feb 16, 2025 Common Visit Codes: PROCEDURE ONLY Procedure Codes: [id number] DOLORES VELAZQUEZ MD Feb 16, 2025 14:13
--- NOTE | 2025-02-16 14:22 | DVHINCON2 ---
Date of service: Feb 16, 2025 Referring Physician hospitalist Reason for Consultation penoscrotal edema History of Present Illness History Source: RN Notes, MD Notes, Old Records Exam Limitations: Clinical condition HPI 64 yo amle with hx of CHF, HTN, and DMII presented to the ER with acute respiratory failure, anasarca, cyanosis and abdominal distention. He was intub ated and has had multiple rounds of CPR. Currently stable in ICU off of sedation on dobutamine drip and intubated. Urology consulted for significant scrotal and penile edema. Past Medical History Patient Family History: Patient reports no known family medical history. Review of Systems Comments unable to obtain H&P Exam Vital Signs Vital Signs Date Time Temp Pulse Resp B/P (MAP) Pulse Ox O2 Delivery O2 Flow Rate FiO2 02/16/25 12:13 89 20 112/64 (80) 100 30 02/16/25 10:30 98.4 209.1 02/16/25 06:00 Mechanical Ventilator+ General Appeara: Obese Male Genital Exam: Other (severe penile scrotal edema. excoriation noted at the penoscrotal junction with a linear fissure at the base of the penis. no drainage. testes not palpated due to edema. no foul odor. ) Labs/Xrays [place] [id number] Ph: [phone] DIAGNOSTIC IMAGING Diagnostic Imaging Report : [id number] Signed PATIENT: SHENG BELTRAN ACCT: [id number] UNIT: [id number] : 1960 LOC: ICU [facility] RO[facility] / BED: [address] [place] [address] AGE / SEX: 64 / M ADM STATUS: ADM IN SERVICE 1639 ORDERING PHYSICIAN: WILLIAMS DANG RESIDENT PROCEDURE(s): TESUS - TESTICULAR ULTRASOUND REASON: Penile swelling ORDER NUMBER(s): [id number], ACCESSION NUMBER(s): [id number] Indication: Penile swelling Technique: Real-time ultrasound images through the scrotum. Comparison: None Findings: Right testicle measures 3.1 x 2.4 x 2.4 cm. It has normal echogenicity and echotexture, with no focal solid or cystic mass. There is normal flow on color Doppler, with normal waveforms. The right epididymal head measures 1.1 cm,. Hypoechoic lesion in the right epididymal tail measuring 8 mm. Left testicle measures 3.2 x 2.3 x 2.1 cm. It has normal echogenicity and echotexture, with no focal solid or cystic mass. There is normal flow on color Doppler, with normal waveforms. The left epididymal head measures 1.6 cm, and has no focal masses. Extensive scrotal wall edema / thickening. Small bilateral hydroceles. Impression: Extensive scrotal wall edema / thickening. Small bilateral hydroceles. No sonographic evidence for testicular torsion. Left epididymal tail hypoechoic lesion measuring 8 mm could represent complex cyst however mass/ lesion can not be ruled out. Recommend continued imaging surveillance. ATED BY: MACIE ROSE MD DICTATED DATE/TIME: 02/14/251805 SIGNED BY: MACIE ROSE MD SIGNED DATE/TIME: 02/14/251805 CC: Labs Test 02/16/25 11:35 02/16/25 11:32 02/16/25 07:02 02/16/25 03:25 Range/Units Total Bilirubin 1.8 H 0.2-1.0 mg/dL Direct Bilirubin 1.1 H <0.3 mg/dL Aspartate Amino Transferase (AST) 43 H 13-40 U/L Alanine Aminotransferase (ALT) 80 H 7-40 U/L Alkaline Phosphatase 103 46-116 U/L Ammonia 15 11-32 umol/L Total Protein 5.5 L 5.7-8.2 g/dL Albumin 2.7 L 3.2-4.8 g/dL POC Glucose 118 H 70-106 mg/dl Blood Gas Specimen Type Arterial Blood Gas Sample Site Left radial Blood Gas Patient Temperature 37.0 Arterial Blood Date Drawn [id number] Arterial Blood pH 7.479 H 7.350-7.450 Arterial Blood Partial Pressure CO2 51.0 H 35.0-48.0 mmHg Arterial Blood Partial Pressure O2 70.3 L 83.0-108.0 mmHg Arterial Blood HCO3 37.0 H 21.0-28.0 mmol/L Arterial Blood Oxygen Saturation 94.6 94.0-98.0 % Arterial Blood Base Excess 11.6 H -2.0-3.0 mmol/L Arterial Blood Oxyhemoglobin 92.9 L 94.0-98.0 % Arterial Blood Carboxyhemoglobin 1.4 0.5-1.5 % Arterial Blood Methemoglobin 0.4 0.0-1.5 % Arterial Blood Deoxyhemoglobin 5.3 H 0.0-5.0 % Charles Test Modified Blood Gas Total Hemoglobin 14.40 13.5-17.5 g/dL Blood Gas Set Respiration Rate 24.0 Blood Gas Modality Vent - ac FiO2 % 30.0 Blood Gas Tidal Volume 500.0 Blood Gas PEEP or CPAP 6.0 White Blood Count 7.9 # 4.4-10.8 10^3/uL Red Blood Count 4.29 L 4.5-5.90 10^6/uL Hemoglobin 12.6 L 13.5-17.5 g/dL Hematocrit 38.8 L 41.0-53.0 % Mean Corpuscular Volume 90.5 80.0-100.0 fL Mean Corpuscular Hemoglobin 29.4 28.0-32.0 pg Mean Corpuscular Hemoglobin Concent 32.5 32.0-36.0 g/dL Red Cell Distribution Width 20.3 H 11.8-14.3 % Platelet Count 103 L 140-450 10^3/uL Mean Platelet Volume 10.4 6.9-10.8 fL Neutrophils (%) (Auto) 85.6 H 37.0-80.0 % Lymphocytes (%) (Auto) 6.8 L 10.0-50.0 % Monocytes (%) (Auto) 6.9 0.0-12.0 % Eosinophils (%) (Auto) 0.4 0.0-7.0 % Basophils (%) (Auto) 0.3 0.0-2.0 % Neutrophils # (Auto) 6.7 1.6-8.6 10 ^3/uL Lymphocytes # (Auto) 0.5 0.4-5.4 10 ^3/uL Monocytes # (Auto) 0.5 0-1.3 10 ^3/uL Eosinophils # (Auto) 0 0-0.8 10 ^3/uL Basophils # (Auto) 0 0-0.2 10 ^3/uL Nucleated Red Blood Cells 0.2 % Sodium Level 138 136-145 mmol/L Potassium Level 3.1 L 3.5-5.1 mmol/L Chloride Level 92 L 98-107 mmol/L Carbon Dioxide Level 37 H 20-31 mmol/L Anion Gap 9 5-15 Blood Urea Nitrogen 76 #H 9-23 mg/dL Creatinine 1.89 H 0.700-1.30 mg/dL Glomerular Filtration Rate Calc 40 >90 mL/min BUN/Creatinine Ratio 40.2 H 10.0-20.0 Serum Glucose 103 74-106 mg/dL Calcium Level 7.8 L 8.7-10.4 mg/dL Phosphorus Level 3.6 2.4-5.1 mg/dL Magnesium Level 2.1 1.6-2.6 mg/dL Test 02/15/25 03:10 02/14/25 16:52 02/14/25 11:30 02/14/25 09:50 Range/Units Random Vancomycin Level 11.5 H 5-10 ug/mL Treponema pallidum Antibody Non-reactive Negative HIV (1&2) Antibody Negative Negative Urine Creatinine 22.66 L 30.0-125.0 mg/dL Urine Protein/Creatinine Ratio 0.26 Urine Sodium 47 40-220 mmol/L Urine Total Protein < 6.0 1-14 mg/dL Body Fluid Source Pleural fluid Body Fluid WBC (Manual) 789 H 0-200 CUMM Body Fluid RBC (Manual) 1326 0-2000 CUMM Body Fluid Mononuclear Cells 14 % Body Fluid Polymorphonuclear Cells 86 H 0-25 % Body Fluid Glucose 113 . mg/dL Body Fluid Total Protein 1.8 . g/dL Test 02/14/25 03:31 02/13/25 18:35 02/13/25 16:15 02/13/25 12:59 Range/Units Hemoglobin A1c 5.9 H <5.7 % A1C B-Type Natriuretic Peptide 1266.88 0-100 pg/mL Triglycerides Level 81 < 150 mg/dL Cholesterol Level 119 < 200 mg/dL LDL Cholesterol 80 < 100 mg/dL HDL Cholesterol 25 L 40-59 mg/dL Thyroid Stimulating Hormone (TSH) 0.62 0.55-4.78 uIU/mL Urine Opiates Screen Neg NEGATIVE Urine Fentanyl Screen Pos NEGATIVE Urine Barbiturates Screen Neg NEGATIVE Urine Phencyclidine Screen Neg NEGATIVE Urine Amphetamines Screen Pos NEGATIVE Urine Benzodiazepines Screen Pos NEGATIVE Urine Cocaine Screen Neg NEGATIVE Urine Cannabinoids Screen Neg NEGATIVE Troponin I High Sensitivity 163 *H </=54 ng/L Lactic Acid Level 1.6 0.4-2.0 mmol/L Test 02/13/25 06:25 02/13/25 06:15 02/13/25 02:40 02/11/25 18:54 Range/Units Blood Gas Spontaneous Rate 25 Ferritin 87.6 22-322 ng/mL Hepatitis A Antibody Total Positive H Negative Hepatitis B Surface Antigen Negative Negative Hepatitis B Surface Antibody Negative Negative Hepatitis B Core Total Antibody Negative Negative Hepatitis C Antibody Negative Negative Blood Gas Liter Flow 6.00 Blood Gas Critical Value Read Back Yes Blood Gas Notified Whom Md paige engel Blood Gas Notified Time [id number] Blood Gas Notified By Rt mikayla mcdowell Venous Blood pH 7.355 7.320-7.430 Venous Blood pCO2 at Patient Temp 47.3 38.0-54.0 mmHg Venous Blood pO2 at Patient Temp < 36.5 23.0-48.0 mmHg Venous Blood HCO3 25.8 22.0-29.0 mmol/L Venous Blood Base Excess -0.2 -2.0-3.0 mmol/L Test 02/11/25 18:53 Range/Units Prothrombin Time 13.6 H 9.3-11.8 sec Prothrombin Time INR 1.32 H 0.9-1.15 Activated Partial Thromboplast Time 30.8 24.5-34.5 SEC Microbiology Date/Time Source Procedure Growth Status 02/13/25 08:15 Nose MRSA Screen - Final Complete 02/11/25 19:38 Blood Blood Culture - Preliminary NO GROWTH AFTER 72 HOURS OF INCUBATION. Resulted Assessment/Plan Problem List: (1) Congestive heart failure (2) Pneumonitis (3) COPD exacerbation (4) Respiratory failure with hypoxia (5) Acute renal injury (6) Elevated liver enzymes (7) COPD with acute exacerbation (8) Acute respiratory failure with hypoxia (9) Generalized weakness (10) Lactic acidosis (11) Anasarca (12) Decompensated heart failure (13) Liver disease, chronic (14) Cyst of epididymis determined by ultrasound Plan no acute urologic intervention indicated at this time penoscrotal edema management - scrotal elevation - skin protection and perineal hygiene - maintain jaffe to gravity medical management per primary team urology signing off Plan discussed with: TIMI Cunha NP Feb 16, 2025 14:22
[2025-02-16] MEDS: FUROSEMIDE 40 MG/4 ML VIAL IV SCH (16:57)
--- NOTE | 2025-02-16 22:34 | DVHPN2 ---
Subjective DOS: 02/16/2025 Patient seen and examined at bedside. Sedated, intubated on mechanical ventilator. Overnight events reviewed. Reviewed: Care Plan, H&P, Labs, Medications, Previous Orders, Radiology Changes from previous H/P or p: No Changes Eyes: No Pain, No Vision change, No Conjunctivae inflammation, No Eyelid inflammation, No Other, No Redness ENT: No Ear pain, No Ear discharge, No Nose pain, No Nose discharge, No Nose congestion, No Mouth pain, No Mouth swelling, No Throat pain, No Throat swelling, No Other Cardiovascular: No Chest Pain, No Palpitations, No Orthopnea, No Paroxysmal Noc. Dyspnea, No Edema, No Lt Headedness, No Other Respiratory: No Cough, No Dry; Shortness of breath, SOB with excertion; No Wheezing, No Hemoptysis, No Pleuritic Pain, No Sputum; Other (SOB at rest) Gastrointestinal: No Nausea, No Vomiting; Abdominal Pain; No Diarrhea, No Constipation, No Melena, No Hematochezia; Other (Abdominal distention) Genitourinary: No Dysuria, No Frequency, No Incontinence, No Hematuria, No Retention, No Other Musculoskeletal: No other, No neck pain, No shoulder pain, No arm pain, No back pain, No hand pain, No leg pain, No foot pain Skin: No Rash, No Lesions, No Jaundice, No Bruising; Other (Lower extremity open wounds) Objective Vitals Vital Signs Date Time Temp Pulse Resp B/P (MAP) Pulse Ox O2 Delivery O2 Flow Rate FiO2 02/16/25 22:03 97 21 105/60 (75) 99 30 02/16/25 20:45 98.6 209.5 02/16/25 20:00 Mechanical Ventilator+ Intake/Output Intake and Output 02/16/25 07:00 Intake Total 2817.587 ml Output Total 3400 ml Balance -582.413 ml Intake Oral 240 ml IV Total 1081.587 ml Tube Feeding 281 ml Other 1215 ml Output Urine Total 3400 ml Exam Gen.: Patient lying in bed in medical ICU. Sedated, intubated on mechanical ventilator. Head: Normocephalic, atraumatic. Eyes: PERRLA. Ears: Normal external anatomy. Throat: Endotracheal tube and orogastric tube in place. Neck: Supple, trachea midline. Chest: Transmitted breath sounds bilaterally. Decreased air entry bilaterally. No wheezing. Bibasilar crackles. Cardiovascular: Positive S1, positive S2. Regular rate and rhythm. Abdomen: Positive bowel sounds in all 4 quadrants. Soft, nontender, nondistended. : Aguilar in place. Normal external genitalia. Rectal: Deferred. Skin: Warm, dry. Intact. Extremities: 2+ radial pulses bilaterally. No lower extremity edema. Neuro: Sedated. General Appearance: Other (intubate, on vent, unable to examined.) HEENT: Atraumatic, PERRLA, EOMI, Mucous membr. moist/pink Neck: Supple Lungs: Clear to auscultation, Normal air movement Cardiovascular: Regular rate, Normal S1, Normal S2, No murmurs, Gallops, Rubs Abdomen: Normal bowel sounds, Soft, No tenderness Neuro: Other (intubate, on vent , unable to examined.) Medications Current Medications Medications Dose Ordered Sig/Geraldo Route Start Time Stop Time Status Last Admin Dose Admin Albuterol 2.5 mg Q4HPRN PRN NEB 02/11/25 22:15 02/15/25 06:13 2.5 MG Ipratropium [place] 0.5 mg Q4HPRN PRN NEB 02/11/25 22:15 02/15/25 06:13 0.5 MG Diagnostic Test (Pha) 1 strip ACHS 02/12/25 07:00 02/16/25 22:14 1 STRIP Insulin Human Regular ACHS SC 02/12/25 07:00 02/15/25 22:05 2 UNITS Dextrose 50 ml UD PRN IV 02/11/25 22:15 Sodium Chloride 10 ml Q8HR IV 02/12/25 06:00 02/16/25 22:22 10 ML Acetaminophen/ Hydrocodone Bitart 1 tab Q4HP PRN PO 02/11/25 22:15 02/13/25 00:10 1 TAB Acetaminophen 650 mg Q6HP PRN PO 02/11/25 22:15 Morphine Sulfate 2 mg Q30M PRN IV 02/11/25 22:15 Tamsulosin HCl 0.4 mg QPM PO 02/12/25 18:00 02/16/25 16:56 0.4 MG Aspirin 81 mg DAILY PO 02/12/25 10:00 02/16/25 09:13 81 MG Nicotine 1 patch DAILY TD 02/13/25 10:00 Norepinephrine Bitartrate 32 mg/ Sodium Chloride 250 ml @ 0.938 mls/ hr Q24H IV 02/13/25 08:45 02/14/25 12:15 2.813 MLS/HR Vancomycin HCl 0 ml @ 0 mls/hr PER PHARMACY IV 02/13/25 12:00 Midazolam HCl 100 ml @ 1 mls/hr Q24H IV 02/13/25 14:30 02/13/25 14:42 1 MLS/HR Fentanyl Citrate 250 ml @ 2.5 mls/hr Q24H IV 02/13/25 14:45 02/15/25 10:45 15 MLS/HR Enoxaparin Sodium 40 mg DAILY SC 02/15/25 10:00 02/16/25 09:12 40 MG Octreotide Acetate 100 mcg TID SUBCUT 02/14/25 14:00 02/16/25 22:23 100 MCG Dopamine HCl/ Dextrose 250 ml @ 4.069 mls/ hr Q24H IV 02/14/25 11:00 02/14/25 12:17 4.069 MLS/HR Enteral Nutritional Formula 1,000 ml 30ML/HR GT 02/14/25 12:45 02/14/25 17:59 1,000 ML Sennosides 8.6 mg HS PO 02/14/25 22:00 02/16/25 22:22 8.6 MG Clonazepam 0.5 mg BID PO 02/15/25 10:00 02/16/25 22:21 0.5 MG Methadone HCl 10 mg Q8HR PO 02/15/25 14:00 02/16/25 22:21 10 MG Quetiapine Fumarate 25 mg BID PO 02/15/25 10:00 02/16/25 22:21 25 MG Meropenem 50 ml @ 17 mls/hr Q8HR IV 02/15/25 14:00 02/16/25 22:22 17 MLS/HR Lactulose 30 ml DAILY PO 02/16/25 10:00 02/16/25 09:11 30 ML Pantoprazole Sodium 40 mg DAILY IV 02/17/25 10:00 Furosemide 40 mg BIDD IV 02/16/25 18:00 02/16/25 16:57 40 MG Laboratory Results Laboratory Tests 02/16/25 03:25 Chemistry Test 02/16/25 03:25 02/16/25 11:35 Calcium Level 7.8 mg/dL (8.7-10.4) L Magnesium Level 2.1 mg/dL (1.6-2.6) Phosphorus Level 3.6 mg/dL (2.4-5.1) Albumin 2.7 g/dL (3.2-4.8) L Total Protein 5.5 g/dL (5.7-8.2) L LFT Test 02/16/25 11:35 Alanine Aminotransferase (ALT) 80 U/L (7-40) H Alkaline Phosphatase 103 U/L (46-116) Aspartate Amino Transferase (AST) 43 U/L (13-40) H Direct Bilirubin 1.1 mg/dL (<0.3) H Total Bilirubin 1.8 mg/dL (0.2-1.0) H Urinalysis Test 02/14/25 11:30 Urine Creatinine 22.66 mg/dL (30.0-125.0) L Urine Protein/Creatinine Ratio 0.26 Urine Sodium 47 mmol/L (40-220) Urine Total Protein < 6.0 mg/dL (1-14) Blood Gas Results Test 02/16/25 07:02 Arterial Blood pH 7.479 (7.350-7.450) FiO2 % 30.0 Microbiology Microbiology Date/Time Source Procedure Growth Status 02/13/25 08:15 Nose MRSA Screen - Final Complete 02/11/25 19:38 Blood Blood Culture - Final NO GROWTH AFTER 5 DAYS OF INCUBATION. Complete Assessment/Plan Assessment/Plan Impression: Acute hypoxemic respiratory failure On mechanical ventilator Pleural effusion Atelectasis S/p cardiac arrest Cardiomyopathy Congestive heart failure Obesity Plan: s/p intubation on mechanical ventilator. ABG reviewed, notable for alkalemia. On AC mode; RR 24, VT 500, PEEP 6, FiO2 30% RR was decreased to 18 Titrate FIO2 to keep O2 saturation above 90%. VAP bundle. Daily ABG and CXR while intubated Sedate for ventilator synchrony Patient is s/p right thoracentesis. Continue bronchodilators. Continue antibiotics. Follow up cultures. WBC count of 7.9 K Pressors as necessary for hemodynamic support Titrate to keep mean arterial pressure greater than 65 mmHg. Dopamine 2 mcg/min Echo report reviewed; EF approximately 20% Cardiology recs appreciated. On Protonix, Sandostatin Monitor hemoglobin Tube feeds for nutritional support Follow up GI recs Diurese with Lasix BID Monitor renal function Monitor electrolytes. Supplement as necessary. Potassium supplementation Monitor ins and outs. Maintain euvolemia. GI prophylaxis -Protonix. DVT prophylaxis - Lovenox. Prognosis: Poor given patient's multiple co-morbidities. Condition: Critical Rest of plan per hospitalist and other consultants. A total of 35 minutes of critical care time was spent reviewing the patient record, examining the patient, making a diagnostic and therapeutic plan, discussing this plan with the medical personnel, following up on diagnostic studies and following the patient for clinical stability excluding any and all procedures. At least 50% of this time was spent in direct, [id number] contact. Thank you, Dr. Blas, for allowing me to participate in this patient's care. Further recommendations will depend on the patient's clinical course. Please do not hesitate to contact me if you have any questions or concerns. This medical document was created using an electronic medical record system with [employer] dictation system. Although these documentations are being carefully reviewed, there may still be some phonetic and typographical changes. The errors are purely typographical, due to imperfection on the software program, and do not reflect any compromise in the patient's medical care. Plan discussed with: Other (LEIGHTON Clarke) My Orders Orders - DOLORES VELAZQUEZ MD Procedure Category Date Status Time Ventilator Orders RT 02/16/25 Transmitted 13:28 Respiratory Culture ANNE-MARIE 02/16/25 Logged W/ Gs 13:29 Visit Coding Pulmonary Billing Provider: DOLORES VELAZQUEZ MD Date of Service if different f: Feb 16, 2025 Common Visit Codes: [id number] INP/OBS CARE(HIGH), [id number] CARE 30-74 MIN DOLORES VELAZQUEZ MD Feb 16, 2025 22:34
[2025-02-17] VITALS (106 sets, daily range): BP systolic 94–125; BP diastolic 58–84; PULSE 79–116; RESP 15–29; TEMP 97–99.7; O2SAT 95–100
[2025-02-17 04:14] LABS: Hematocrit 38.7 % (41.0-53.0); Hemoglobin 13.0 g/dL (13.5-17.5); Mean Corpuscular Hemoglobin 31.4 pg (28.0-32.0); Mean Corpuscular Volume 93.8 fL (80.0-100.0); Nucleated Red Blood Cells % 0.1 %
[2025-02-17 04:41] LABS: Alkaline Phosphatase 108 U/L (46-116); Anion Gap 7 (5-15); BUN/Creatinine Ratio 31.7 (10.0-20.0); Chloride 102 mmol/L (98-107); Magnesium 1.8 mg/dL (1.6-2.6); Potassium 3.5 mmol/L (3.5-5.1)
[2025-02-17 04:47] LABS: Sodium 149 mmol/L (136-145)
[2025-02-17 04:48] LABS: Alanine Aminotransferase 73 U/L (7-40); Albumin 2.7 g/dL (3.2-4.8); Bilirubin, Total 1.5 mg/dL (0.2-1.0); Blood Urea Nitrogen 33 mg/dL (9-23); Calcium 8.1 mg/dL (8.7-10.4); Glucose 122 mg/dL (74-106); Total Protein 5.4 g/dL (5.7-8.2)
[2025-02-17 04:49] LABS: Carbon Dioxide 40 mmol/L (20-31)
[2025-02-17 05:09] LABS: Chlamydia Trachomatis, NAA Negative (Negative); Neisseria gonorrhoeae, NAA Negative (Negative)
[2025-02-17 09:30] LABS: Base Excess 12.8 mmol/L (-2.0-3.0)
[2025-02-17] MEDS: PANTOPRAZOLE 40 MG/10 ML VIAL INJ IV SCH (09:45)
[2025-02-17] MEDS: VANCOMYCIN 1.75GM/350ML 350 ML IV SCH (09:45)
[2025-02-17] MEDS ORDERED: acetaZOLAMIDE SODIUM 500 MG VL IV ONE (10:45)
--- NOTE | 2025-02-17 10:45 | DVHPN2 ---
Assessment/Plan Assessment/Plan ICU note 64 M with HTN, HFrEF 20%, DM, ascites, meth use admitted for SOB, later was found in respiratory distress, intubated and had PEA arrest, ROSC in 4 minutes. 12 s/p thora, 2 L out. switched to lasix drip. start TF. POCUS done, minimal tapable pocket in abdomen. wound culture with prelim growth. wound care 02/15 wound culture back, changed abx to vanc and layton, starting oral meds for weaning, patient previously agitated, to decrease prevent self extubation. lasix drip switched to 60 BID. SAT SBT tomorrow. 02/16 hold diuresis today, POCUS with improving IVC, off sedation, not waking up still. 02/17 adding diamox, metabolic alkalosis, decrease RR, holding methadone and klonazepam, off sedation, opening eyes to name, not following command, c/w SAT SBT. physical exam intubated on mechanical ventilator obese opening eyes to name cannot appreciate JVD mechanical breath sounds S1 S2 systolic murmur abdomen distended b/l LE edema w/ chronic venous wounds vent ac/vc 550 16 30% PEEP 6 7.302/50/77 drips levophed off fentanyl off labs reviewed acetinobacter, pseudomonas, e faecalis, MRSA in wound cultrue imaging cxr RLL opacity echo LVEF 20%, DCM, MR assessment and plan s/p PEA arrest ROSC 4 mins cardiogenic shock acute on chronic hypoxic RF acute on chronic systolic HF small R PLEF COPD with exacerbation PNA gp vs gn HFrEF 20% DCM transaminitis cirrhosis? ascites? ALEXIS likely VMN on CKD? 3 lactic acidosis meth use leukocytosis type 2 MS demand ischemia DM? chronic venous stasis wound with multiple bact L testicular mass? ICU SAT SBT titrate levophed to maintain MAP >60 c/w mechanical vent hold diuresis c/w sedation, maintain RAAS -2, added methadone, klonopin, seroquel trend lactate, cr, LFT c/w vanc , zosyn switched to layton avoid fever VAP bundle bronchodilators hold GDMT until off pressors send A1C, lipid, tsh wound care daily SAT SBT keep K 4 Ph 3 Mg 2 Diet jevity to goal DVT PPX lovenox GI PPX protonix Lines RIJ TLC NGT jaffe Full code condition critical prognosis poor critical care time 40 minutes Plan discussed with: Other My Orders Orders - SYEDA VILLALOBOS MD Procedure Category Date Status Time Furosemide Injection PHA 02/17/25 Transmitted (Lasix Injection) 10:45 Furosemide Injection PHA 02/18/25 Transmitted (Lasix Injection) 10:00 Acetazolamide PHA 02/17/25 Transmitted Injection (Diamox 10:45 Albumin Ivpb PHA 02/17/25 Transmitted 10:45 Date of Service: Feb 17, 2025 Billing Provider: SYEDA VILLALOBOS MD Common Visit Codes: [id number] CARE 30-74 MIN SYEDA VILLALOBOS MD Feb 17, 2025 10:44
--- NOTE | 2025-02-17 11:50 | DVHPN2 ---
Progress Note Date Seen: Feb 17, 2025 Resident Creating Document: WILLIAMS DANG RESIDENT Medical Necessity Reason Pt with a Central, PICC or Fol: Yes The following are medically ne: Central Line, Aguilar Catheter Subjective Review of Systems Off sedation. Patient responding to commands. Following commands. Possible CPAP trial today. Tube feedings on hold due to CPAP trial. Abdomen normoactive Objective vital signs Vital Sign Date Time Temp Pulse Resp B/P (MAP) Pulse Ox O2 Delivery O2 Flow Rate FiO2 02/17/25 11:30 97.2 88 18 106/73 (84) 100 207.0 02/17/25 10:14 30 02/17/25 10:00 Mechanical Ventilator+ Total Intake and Output 02/16/25 02/16/25 02/17/25 15:00 23:00 07:00 Intake Total 117.552 ml 149.552 ml 595.552 ml Output Total 1200 ml 850 ml Balance 117.552 ml -1050.448 ml -254.448 ml medications Current Medications Medications Dose Ordered Sig/Geraldo Route Start Time Stop Time Status Last Admin Dose Admin Albuterol 2.5 mg Q4HPRN PRN NEB 02/11/25 22:15 02/15/25 06:13 2.5 MG Ipratropium [place] 0.5 mg Q4HPRN PRN NEB 02/11/25 22:15 02/15/25 06:13 0.5 MG Diagnostic Test (Pha) 1 strip ACHS 02/12/25 07:00 02/17/25 11:44 1 STRIP Insulin Human Regular ACHS SC 02/12/25 07:00 02/15/25 22:05 2 UNITS Dextrose 50 ml UD PRN IV 02/11/25 22:15 Sodium Chloride 10 ml Q8HR IV 02/12/25 06:00 02/17/25 06:31 10 ML Acetaminophen/ Hydrocodone Bitart 1 tab Q4HP PRN PO 02/11/25 22:15 02/13/25 00:10 1 TAB Acetaminophen 650 mg Q6HP PRN PO 02/11/25 22:15 Tamsulosin HCl 0.4 mg QPM PO 02/12/25 18:00 02/16/25 16:56 0.4 MG Aspirin 81 mg DAILY PO 02/12/25 10:00 02/17/25 09:48 81 MG Nicotine 1 patch DAILY TD 02/13/25 10:00 Norepinephrine Bitartrate 32 mg/ Sodium Chloride 250 ml @ 0.938 mls/ hr Q24H IV 02/13/25 08:45 02/14/25 12:15 2.813 MLS/HR Vancomycin HCl 0 ml @ 0 mls/hr PER PHARMACY IV 02/13/25 12:00 Midazolam HCl 100 ml @ 1 mls/hr Q24H IV 02/13/25 14:30 02/13/25 14:42 1 MLS/HR Fentanyl Citrate 250 ml @ 2.5 mls/hr Q24H IV 02/13/25 14:45 02/15/25 10:45 15 MLS/HR Enoxaparin Sodium 40 mg DAILY SC 02/15/25 10:00 02/17/25 09:46 40 MG Octreotide Acetate 100 mcg TID SUBCUT 02/14/25 14:00 02/17/25 06:33 100 MCG Dopamine HCl/ Dextrose 250 ml @ 4.069 mls/ hr Q24H IV 02/14/25 11:00 02/17/25 00:20 4.069 MLS/HR Enteral Nutritional Formula 1,000 ml 30ML/HR GT 02/14/25 12:45 02/14/25 17:59 1,000 ML Sennosides 8.6 mg HS PO 02/14/25 22:00 02/16/25 22:22 8.6 MG Quetiapine Fumarate 25 mg BID PO 02/15/25 10:00 02/17/25 10:12 25 MG Meropenem 50 ml @ 17 mls/hr Q8HR IV 02/15/25 14:00 02/17/25 06:31 17 MLS/HR Pantoprazole Sodium 40 mg DAILY IV 02/17/25 10:00 02/17/25 09:45 40 MG Vancomycin HCl 350 ml @ 200 mls/hr DAILY IV 02/17/25 10:00 02/17/25 09:45 200 MLS/HR Lactulose 30 ml BID PO 02/17/25 22:00 Furosemide 40 mg DAILY IV 02/18/25 10:00 Magnesium Sulfate/ Dextrose 100 ml @ 100 mls/hr Q1HR IV 02/17/25 11:00 02/17/25 12:59 Examination Patient lying in bed, on mechanical ventilation General: Overweight, afebrile, palor, mucosae are moist Cardiovascular: Regular S1 and S2. No murmurs, gallops or rubs. No JVD elevation. Pedal edema Respiratory: Decreased bilateral air entry on auscultation, mechanically ventilated Abdomen: Soft, nontender, nondistended, normoactive bowel sounds, no rebound tenderness, no organomegaly, no masses. Purulent vesicles on lower abdomen. Penile swelling. Small clots and Aguilar noted. Bilateral lower extremity, cyanosed, bluish, 3+ pedal edema, minimal pulses, cold laboratory and microbiology Laboratory Tests 02/17/25 03:28 Test 02/17/25 03:28 Range/Units Serum Glucose 122 H 74-106 mg/dL Microbiology Date/Time Source Procedure Growth Status 02/13/25 08:15 Nose MRSA Screen - Final Complete 02/11/25 19:38 Blood Blood Culture - Final NO GROWTH AFTER 5 DAYS OF INCUBATION. Complete Labs and/or images reviewed: Labs reviewed by me, Image(s) reviewed by me Problem List/Assessment/Plan Problem List/Assessment/Plan Cirrhosis Acute hypoxic respiratory failure status post intubation Systolic Heart failure with reduced ejection fraction exacerbation NSTEMI Hypertension Hyperkalemia Rule out STI Acute kidney injury Peripheral arterial disease Methamphetamine use dependence Liver ultrasound shows Heterogeneous appearing liver suggesting chronic liver disease. Plan: Recommendation: Bilirubin downtrending, LFTs downtrending. H&H stable. Monitor CMP in a.m.. Lactulose increased to 30 mL b.i.d.. Continue conservative management. CPAP trial today. Consider urology consultation for epididymis cyst versus mass Hepatitis panel negative Continue tube feedings HIV, syphilis negative. Gonorrhea and chlamydia pending Protonix 40 mg daily Plan discussed with the primary RN in which all questions have been answered Case discussed with Dr. Urena Plan discussed with: Other (Nurse) My Orders My Orders Orders - WILLIAMS DANG RESIDENT Procedure Category Date Status Time Lactulose Oral PHA 02/17/25 In Process 22:00 Kub Abdomen Single XY 02/17/25 Taken View 10:16 Dietary Evaluation Review Comments: CCHO-60 Cardiac diet, texture as tolearated when medically feasible nicotine cessation counseling Follow up with updated lab values Expected Outcomes/Goals: Improved nurition related lab values, free from nicotine WILLIAMS DANG RESIDENT Feb 17, 2025 11:50
[2025-02-17] MEDS: POTASSIUM CHL 20MEQ/100ML 100 ML IV ONE (11:51)
[2025-02-17] MEDS: MAGNESIUM SULFATE 1GM/100ML 100 ML IV SCH (11:51)
[2025-02-17] MEDS: FUROSEMIDE 40 MG/4 ML VIAL IV ONE (11:51)
[2025-02-17] MEDS: ALBUMIN 25% 100 ML IV ONE (12:51)
--- NOTE | 2025-02-17 13:04 | DVH ---
Date: 02/17/2025 10:46 AM Examination: XY KUB ABDOMEN SINGLE VIEW History: no bowel movement Comparison: None TECHNIQUE: Frontal views of the abdomen was obtained. FINDINGS: Bowel gas pattern is unremarkable. Enteric tube in the stomach. Stool scattered throughout the colon may be secondary to constipation. No radiographic findings to suggest bowel obstruction. The lung bases are unremarkable. No acute osseous abnormality identified. IMPRESSION: 1. Enteric tube in the stomach 2. Stool scattered throughout the colon. May be consistent with constipation correlate clinically. 3. No radiographic findings to suggest bowel obstruction at this time.
[2025-02-17] MEDS: POTASSIUM PHOSPHATE 44 MEQ in D5W 5% 250 ML IV ONE (13:24)
[2025-02-17] MEDS: acetaZOLAMIDE 250 MG TAB PO ONE (14:08)
--- NOTE | 2025-02-17 14:25 | DVHPN2 ---
Progress Note Date Seen: Feb 17, 2025 Resident Creating Document: MAURO FITCH RESIDENT Medical Necessity Reason Pt with a Central, PICC or Fol: Yes The following are medically ne: Central Line, Aguilar Catheter Subjective Review of Systems Patient seen and examined at the bedside. Unable to obtain ROS due to patient's clinical status. Patient reports: No new complaints Changes from previous H/P or p: No Changes Review of Systems: RESPIRATORY:Abnormal Other Systems: Patient seen and examined by myself today on rounds with the medicine resident, I agree with the assessment and plan Objective vital signs Vital Sign Date Time Temp Pulse Resp B/P (MAP) Pulse Ox O2 Delivery O2 Flow Rate FiO2 02/17/25 14:15 97.0 90 20 116/78 (91) 99 206.6 02/17/25 14:06 30 02/17/25 14:00 Mechanical Ventilator+ Total Intake and Output 02/16/25 02/16/25 02/17/25 15:00 23:00 07:00 Intake Total 117.552 ml 149.552 ml 595.552 ml Output Total 1200 ml 850 ml Balance 117.552 ml -1050.448 ml -254.448 ml medications Current Medications Medications Dose Ordered Sig/Geraldo Route Start Time Stop Time Status Last Admin Dose Admin Albuterol 2.5 mg Q4HPRN PRN NEB 02/11/25 22:15 02/15/25 06:13 2.5 MG Ipratropium [place] 0.5 mg Q4HPRN PRN NEB 02/11/25 22:15 02/15/25 06:13 0.5 MG Diagnostic Test (Pha) 1 strip ACHS 02/12/25 07:00 02/17/25 11:44 1 STRIP Insulin Human Regular ACHS SC 02/12/25 07:00 02/15/25 22:05 2 UNITS Dextrose 50 ml UD PRN IV 02/11/25 22:15 Sodium Chloride 10 ml Q8HR IV 02/12/25 06:00 02/17/25 13:24 10 ML Acetaminophen/ Hydrocodone Bitart 1 tab Q4HP PRN PO 02/11/25 22:15 02/13/25 00:10 1 TAB Acetaminophen 650 mg Q6HP PRN PO 02/11/25 22:15 Tamsulosin HCl 0.4 mg QPM PO 02/12/25 18:00 02/16/25 16:56 0.4 MG Aspirin 81 mg DAILY PO 02/12/25 10:00 02/17/25 09:48 81 MG Nicotine 1 patch DAILY TD 02/13/25 10:00 Norepinephrine Bitartrate 32 mg/ Sodium Chloride 250 ml @ 0.938 mls/ hr Q24H IV 02/13/25 08:45 02/14/25 12:15 2.813 MLS/HR Vancomycin HCl 0 ml @ 0 mls/hr PER PHARMACY IV 02/13/25 12:00 Midazolam HCl 100 ml @ 1 mls/hr Q24H IV 02/13/25 14:30 02/13/25 14:42 1 MLS/HR Fentanyl Citrate 250 ml @ 2.5 mls/hr Q24H IV 02/13/25 14:45 02/15/25 10:45 15 MLS/HR Enoxaparin Sodium 40 mg DAILY SC 02/15/25 10:00 02/17/25 09:46 40 MG Octreotide Acetate 100 mcg TID SUBCUT 02/14/25 14:00 02/17/25 13:24 100 MCG Dopamine HCl/ Dextrose 250 ml @ 4.069 mls/ hr Q24H IV 02/14/25 11:00 02/17/25 00:20 4.069 MLS/HR Enteral Nutritional Formula 1,000 ml 30ML/HR GT 02/14/25 12:45 02/14/25 17:59 1,000 ML Sennosides 8.6 mg HS PO 02/14/25 22:00 02/16/25 22:22 8.6 MG Quetiapine Fumarate 25 mg BID PO 02/15/25 10:00 02/17/25 10:12 25 MG Meropenem 50 ml @ 17 mls/hr Q8HR IV 02/15/25 14:00 02/17/25 13:23 17 MLS/HR Pantoprazole Sodium 40 mg DAILY IV 02/17/25 10:00 02/17/25 09:45 40 MG Vancomycin HCl 350 ml @ 200 mls/hr DAILY IV 02/17/25 10:00 02/17/25 09:45 200 MLS/HR Lactulose 30 ml BID PO 02/17/25 22:00 Furosemide 40 mg DAILY IV 02/18/25 10:00 Examination Pt is lying on bed General Appearance: Sedated and intubated on mechanical v HEENT: Atraumatic, Mucous membranes moist/pink Respiratory: diminished Cardiovascular: Regular rate, Normal S1, Normal S2, No murmurs Abdominal: Active bowel sounds, Soft, no distention, Extremities: 3+ BLE with the bluish discoloration Skin: bluish discoloration with eczematous rash in both lower extremities Neuro: deferred Nurse was there as application dba during examination laboratory and microbiology Laboratory Tests 02/17/25 03:28 Test 02/17/25 03:28 Range/Units Serum Glucose 122 H 74-106 mg/dL Microbiology Date/Time Source Procedure Growth Status 02/13/25 08:15 Nose MRSA Screen - Final Complete 02/11/25 19:38 Blood Blood Culture - Final NO GROWTH AFTER 5 DAYS OF INCUBATION. Complete Labs and/or images reviewed: Labs reviewed by me, Image(s) reviewed by me Problem List/Assessment/Plan Problem List/Assessment/Plan ALEXIS likely hemodynamic mediated on CKD stage 3, FeNa > 2%-improved Acute respiratory failure, patient intubated on ventilator Septic shock Pneumonia secondary to Gram-positive Gram-negative bacteria HFrEF with a LVEF 20% End-stage dilated cardiomyopathy Transaminitis Polysubstance use Liver cirrhosis Hypokalemia Plan/recommendations: Daily monitor kidney functions and urinary output-improved Daily monitor lab Added Diamox and changed Lasix to 40 daily Avoid nephrotoxic agent KCL replacement Dopamine low-dose Octreotide Urine studies Strict I&Os IV pressors for blood pressure support IV antibiotics Assess fluid status daily Rest of management as per primary team Case discussed with the Dr. Sarkar Plan discussed with: Other (rn) Dietary Evaluation Review Comments: CCHO-60 Cardiac diet, texture as tolearated when medically feasible nicotine cessation counseling Follow up with updated lab values Expected Outcomes/Goals: Improved nurition related lab values, free from nicotine MAURO FITCH RESIDENT Feb 17, 2025 14:25 MARTÍN SARKAR MD Feb 18, 2025 09:48
[2025-02-17] MEDS: LACTULOSE 20Gm/30ML SOLN PO SCH (22:03)
[2025-02-18] VITALS (112 sets, daily range): BP systolic 88–195; BP diastolic 17–116; PULSE 74–96; RESP 11–27; TEMP 75.6–98.2; O2SAT 90–100
[2025-02-18 03:49] LABS: Hematocrit 40.8 % (41.0-53.0); Hemoglobin 13.3 g/dL (13.5-17.5); Mean Corpuscular Hemoglobin 31.0 pg (28.0-32.0); Mean Corpuscular Volume 94.9 fL (80.0-100.0); Nucleated Red Blood Cells % 0.0 %
[2025-02-18 04:07] LABS: Alkaline Phosphatase 93 U/L (46-116); BUN/Creatinine Ratio 29.5 (10.0-20.0); Chloride 103 mmol/L (98-107); Magnesium 2.2 mg/dL (1.6-2.6); Potassium 3.6 mmol/L (3.5-5.1); Total Protein 5.8 g/dL (5.7-8.2)
[2025-02-18 04:18] LABS: Sodium 151 mmol/L (136-145)
[2025-02-18 04:19] LABS: Alanine Aminotransferase 62 U/L (7-40); Albumin 3.0 g/dL (3.2-4.8); Anion Gap 7.99999 (5-15); Bilirubin, Total 1.4 mg/dL (0.2-1.0); Blood Urea Nitrogen 26 mg/dL (9-23); Calcium 8.6 mg/dL (8.7-10.4); Carbon Dioxide > 40 mmol/L (20-31); Glucose 115 mg/dL (74-106)
--- NOTE | 2025-02-18 05:56 | DVHPN2 ---
Subjective DOS: 02/17/2025 Patient seen and examined at bedside. intubated on mechanical ventilator. Overnight events reviewed. Reviewed: Care Plan, H&P, Labs, Medications, Previous Orders, Radiology Changes from previous H/P or p: No Changes Eyes: No Pain, No Vision change, No Conjunctivae inflammation, No Eyelid inflammation, No Other, No Redness ENT: No Ear pain, No Ear discharge, No Nose pain, No Nose discharge, No Nose congestion, No Mouth pain, No Mouth swelling, No Throat pain, No Throat swelling, No Other Cardiovascular: No Chest Pain, No Palpitations, No Orthopnea, No Paroxysmal Noc. Dyspnea, No Edema, No Lt Headedness, No Other Respiratory: No Cough, No Dry; Shortness of breath, SOB with excertion; No Wheezing, No Hemoptysis, No Pleuritic Pain, No Sputum; Other (SOB at rest) Gastrointestinal: No Nausea, No Vomiting; Abdominal Pain; No Diarrhea, No Constipation, No Melena, No Hematochezia; Other (Abdominal distention) Genitourinary: No Dysuria, No Frequency, No Incontinence, No Hematuria, No Retention, No Other Musculoskeletal: No other, No neck pain, No shoulder pain, No arm pain, No back pain, No hand pain, No leg pain, No foot pain Skin: No Rash, No Lesions, No Jaundice, No Bruising; Other (Lower extremity open wounds) Objective Vitals Vital Signs Date Time Temp Pulse Resp B/P (MAP) Pulse Ox O2 Delivery O2 Flow Rate FiO2 02/18/25 05:00 97.5 86 18 112/70 (84) 98 207.5 02/18/25 04:24 30 02/18/25 04:00 Mechanical Ventilator+ Intake/Output Intake and Output 02/18/25 07:00 Intake Total 852.828 ml Output Total 2400 ml Balance -1547.172 ml IV Total 552.828 ml Tube Feeding 300 ml Output Urine Total 2400 ml Exam Gen.: Patient lying in bed in medical ICU. Intubated on mechanical ventilator. Head: Normocephalic, atraumatic. Eyes: PERRLA. Ears: Normal external anatomy. Throat: Endotracheal tube and orogastric tube in place. Neck: Supple, trachea midline. Chest: Transmitted breath sounds bilaterally. Decreased air entry bilaterally. No wheezing. Bibasilar crackles. Cardiovascular: Positive S1, positive S2. Regular rate and rhythm. Abdomen: Positive bowel sounds in all 4 quadrants. Soft, nontender, nondistended. : Aguilar in place. Normal external genitalia. Rectal: Deferred. Skin: Warm, dry. Intact. Extremities: 2+ radial pulses bilaterally. No lower extremity edema. Neuro: Off sedation General Appearance: Other (intubate, on vent, unable to examined.) HEENT: Atraumatic, PERRLA, EOMI, Mucous membr. moist/pink Neck: Supple Lungs: Clear to auscultation, Normal air movement Cardiovascular: Regular rate, Normal S1, Normal S2, No murmurs, Gallops, Rubs Abdomen: Normal bowel sounds, Soft, No tenderness Neuro: Other (intubate, on vent , unable to examined.) Medications Current Medications Medications Dose Ordered Sig/Geraldo Route Start Time Stop Time Status Last Admin Dose Admin Albuterol 2.5 mg Q4HPRN PRN NEB 02/11/25 22:15 02/15/25 06:13 2.5 MG Ipratropium [place] 0.5 mg Q4HPRN PRN NEB 02/11/25 22:15 02/15/25 06:13 0.5 MG Diagnostic Test (Pha) 1 strip ACHS 02/12/25 07:00 02/17/25 22:12 1 STRIP Insulin Human Regular ACHS SC 02/12/25 07:00 02/17/25 17:21 2 UNITS Dextrose 50 ml UD PRN IV 02/11/25 22:15 Sodium Chloride 10 ml Q8HR IV 02/12/25 06:00 02/17/25 22:03 10 ML Acetaminophen/ Hydrocodone Bitart 1 tab Q4HP PRN PO 02/11/25 22:15 02/13/25 00:10 1 TAB Acetaminophen 650 mg Q6HP PRN PO 02/11/25 22:15 Tamsulosin HCl 0.4 mg QPM PO 02/12/25 18:00 02/16/25 16:56 0.4 MG Aspirin 81 mg DAILY PO 02/12/25 10:00 02/17/25 09:48 81 MG Nicotine 1 patch DAILY TD 02/13/25 10:00 Norepinephrine Bitartrate 32 mg/ Sodium Chloride 250 ml @ 0.938 mls/ hr Q24H IV 02/13/25 08:45 02/14/25 12:15 2.813 MLS/HR Vancomycin HCl 0 ml @ 0 mls/hr PER PHARMACY IV 02/13/25 12:00 Midazolam HCl 100 ml @ 1 mls/hr Q24H IV 02/13/25 14:30 02/13/25 14:42 1 MLS/HR Fentanyl Citrate 250 ml @ 2.5 mls/hr Q24H IV 02/13/25 14:45 02/15/25 10:45 15 MLS/HR Enoxaparin Sodium 40 mg DAILY SC 02/15/25 10:00 02/17/25 09:46 40 MG Octreotide Acetate 100 mcg TID SUBCUT 02/14/25 14:00 02/17/25 22:13 100 MCG Dopamine HCl/ Dextrose 250 ml @ 4.069 mls/ hr Q24H IV 02/14/25 11:00 02/17/25 00:20 4.069 MLS/HR Enteral Nutritional Formula 1,000 ml 30ML/HR GT 02/14/25 12:45 02/14/25 17:59 1,000 ML Sennosides 8.6 mg HS PO 02/14/25 22:00 02/17/25 22:00 8.6 MG Quetiapine Fumarate 25 mg BID PO 02/15/25 10:00 02/17/25 22:01 25 MG Meropenem 50 ml @ 17 mls/hr Q8HR IV 02/15/25 14:00 02/17/25 21:54 17 MLS/HR Pantoprazole Sodium 40 mg DAILY IV 02/17/25 10:00 02/17/25 09:45 40 MG Vancomycin HCl 350 ml @ 200 mls/hr DAILY IV 02/17/25 10:00 02/17/25 09:45 200 MLS/HR Lactulose 30 ml BID PO 02/17/25 22:00 02/17/25 22:03 30 ML Furosemide 40 mg DAILY IV 02/18/25 10:00 Laboratory Results Laboratory Tests 02/18/25 03:04 Chemistry Test 02/18/25 03:04 Albumin 3.0 g/dL (3.2-4.8) L Calcium Level 8.6 mg/dL (8.7-10.4) L Magnesium Level 2.2 mg/dL (1.6-2.6) Phosphorus Level 3.1 mg/dL (2.4-5.1) Total Protein 5.8 g/dL (5.7-8.2) LFT Test 02/18/25 03:04 Alanine Aminotransferase (ALT) 62 U/L (7-40) H Alkaline Phosphatase 93 U/L (46-116) Aspartate Amino Transferase (AST) 44 U/L (13-40) H Total Bilirubin 1.4 mg/dL (0.2-1.0) H Urinalysis Test 02/14/25 11:30 Urine Creatinine 22.66 mg/dL (30.0-125.0) L Urine Protein/Creatinine Ratio 0.26 Urine Sodium 47 mmol/L (40-220) Urine Total Protein < 6.0 mg/dL (1-14) Blood Gas Results Test 02/17/25 08:24 Arterial Blood pH 7.458 (7.350-7.450) FiO2 % 30.0 Microbiology Microbiology Date/Time Source Procedure Growth Status 02/13/25 08:15 Nose MRSA Screen - Final Complete 02/11/25 19:38 Blood Blood Culture - Final NO GROWTH AFTER 5 DAYS OF INCUBATION. Complete Assessment/Plan Assessment/Plan Impression: Acute hypoxemic respiratory failure On mechanical ventilator Pleural effusion Atelectasis S/p cardiac arrest Cardiomyopathy Congestive heart failure Obesity Events: Remains on vent support On AC mode; RR 18, VT 500, PEEP 6, FiO2 30% Off sedation for 48 hours Albumin given On dopamine 2 mcg/min Abdominal x-ray shows no e/o bowel obstruction ABG reviewed, notable for alkalemia Tidal volume was reduced to 450 mL Tube feeds for nutritional support Continue antibiotics Diurese with Lasix Monitor renal function Monitor electrolytes. Supplement as necessary. Potassium and magnesium supplementation Labs and imaging reviewed. Rest of plan as noted below. Plan: s/p intubation on mechanical ventilator. On AC mode; RR 18, VT 500-->450, PEEP 6, FiO2 30% Titrate FIO2 to keep O2 saturation above 90%. VAP bundle. Daily ABG and CXR while intubated Patient is s/p right thoracentesis. Continue bronchodilators. Continue antibiotics. Follow up cultures. Monitor WBC count Pressors as necessary for hemodynamic support Titrate to keep mean arterial pressure greater than 65 mmHg. Echo report reviewed; EF approximately 20% Cardiology recs appreciated. On Protonix, Sandostatin Monitor hemoglobin Tube feeds for nutritional support Follow up GI recs Diurese with Lasix Monitor renal function Monitor electrolytes. Supplement as necessary. Monitor ins and outs. Maintain euvolemia. GI prophylaxis -Protonix. DVT prophylaxis - Lovenox. Prognosis: Poor given patient's multiple co-morbidities. Condition: Critical Rest of plan per hospitalist and other consultants. A total of 35 minutes of critical care time was spent reviewing the patient record, examining the patient, making a diagnostic and therapeutic plan, discussing this plan with the medical personnel, following up on diagnostic studies and following the patient for clinical stability excluding any and all procedures. At least 50% of this time was spent in direct, [id number] contact. Thank you, Dr. Blas, for allowing me to participate in this patient's care. Further recommendations will depend on the patient's clinical course. Please do not hesitate to contact me if you have any questions or concerns. This medical document was created using an electronic medical record system with [email or web address] dictation system. Although these documentations are being carefully reviewed, there may still be some phonetic and typographical changes. The errors are purely typographical, due to imperfection on the software program, and do not reflect any compromise in the patient's medical care. Plan discussed with: Other (LEIGHTON Clarke) Visit Coding Pulmonary Billing Provider: DOLORES VELAZQUEZ MD Date of Service if different f: Feb 17, 2025 Common Visit Codes: [id number] INP/OBS CARE(HIGH), [id number] CARE 30-74 MIN DOLORES VELAZQUEZ MD Feb 18, 2025 05:56
--- NOTE | 2025-02-18 06:15 | DVH ---
CHEST RADIOGRAPH Indication: acute respiratory failure Technique: Single frontal view of the chest was obtained COMPARISON: XY CHEST PORTABLE on DOS: 02/14/25, XY CHEST XRAY 1 VIEW on DOS: 02/13/25, XY CHEST PORTABLE on DOS: 02/11/25 FINDINGS: Lines and Tubes: Slight interval retraction of the endotracheal tube such that the tip now projects approximately 3.4 cm above the level of the veronica. Remaining lines and tubes unchanged. Lungs: Slightly Interval progression in diffuse increased prominence of the pulmonary vasculature and bilateral pleural effusions. No pneumothorax. Cardiomediastinal contours: Cardiomegaly. Bones: Unremarkable IMPRESSION: 1. Slight interval retraction of the endotracheal tube such that the tip now projects approximately 3.4 cm above the level of the veronica. Remaining lines and tubes unchanged. 2. Slight interval progression in diffuse pulmonary edema and bilateral pleural effusions. 3. Cardiomegaly.
[2025-02-18 06:56] LABS: Base Excess 8.6 mmol/L (-2.0-3.0)
[2025-02-18] MEDS: FUROSEMIDE 40 MG/4 ML VIAL IV SCH (08:55)
[2025-02-18] MEDS: acetaZOLAMIDE SODIUM 500 MG VL IV SCH (10:15)
--- NOTE | 2025-02-18 10:16 | DVHPN2 ---
Progress Note Date Seen: Feb 18, 2025 Medical Necessity Reason Pt with a Central, PICC or Fol: Yes The following are medically ne: Central Line, Aguilar Catheter Subjective Review of Systems: RESPIRATORY:Abnormal Other Systems: Patient seen and examined by myself today in follow-up, patient remained intubated on ventilator Objective vital signs Vital Sign Date Time Temp Pulse Resp B/P (MAP) Pulse Ox O2 Delivery O2 Flow Rate FiO2 02/18/25 09:37 30 02/18/25 09:37 79 02/18/25 09:37 18 97 Mechanical Ventilator+ 02/18/25 09:00 97.2 114/67 (83) 207.0 Total Intake and Output 02/17/25 02/17/25 02/18/25 15:00 23:00 07:00 Intake Total 419.121 ml 421.707 ml 248 ml Output Total 2400 ml 1550 ml Balance 419.121 ml -1978.293 ml -1302 ml medications Current Medications Medications Dose Ordered Sig/Geraldo Route Start Time Stop Time Status Last Admin Dose Admin Albuterol 2.5 mg Q4HPRN PRN NEB 02/11/25 22:15 02/15/25 06:13 2.5 MG Ipratropium [place] 0.5 mg Q4HPRN PRN NEB 02/11/25 22:15 02/15/25 06:13 0.5 MG Diagnostic Test (Pha) 1 strip ACHS 02/12/25 07:00 02/18/25 06:24 1 STRIP Insulin Human Regular ACHS SC 02/12/25 07:00 02/17/25 17:21 2 UNITS Dextrose 50 ml UD PRN IV 02/11/25 22:15 Sodium Chloride 10 ml Q8HR IV 02/12/25 06:00 02/18/25 06:43 10 ML Acetaminophen/ Hydrocodone Bitart 1 tab Q4HP PRN PO 02/11/25 22:15 02/13/25 00:10 1 TAB Acetaminophen 650 mg Q6HP PRN PO 02/11/25 22:15 Tamsulosin HCl 0.4 mg QPM PO 02/12/25 18:00 02/16/25 16:56 0.4 MG Aspirin 81 mg DAILY PO 02/12/25 10:00 02/17/25 09:48 81 MG Nicotine 1 patch DAILY TD 02/13/25 10:00 Norepinephrine Bitartrate 32 mg/ Sodium Chloride 250 ml @ 0.938 mls/ hr Q24H IV 02/13/25 08:45 02/14/25 12:15 2.813 MLS/HR Vancomycin HCl 0 ml @ 0 mls/hr PER PHARMACY IV 02/13/25 12:00 Midazolam HCl 100 ml @ 1 mls/hr Q24H IV 02/13/25 14:30 02/13/25 14:42 1 MLS/HR Fentanyl Citrate 250 ml @ 2.5 mls/hr Q24H IV 02/13/25 14:45 02/15/25 10:45 15 MLS/HR Enoxaparin Sodium 40 mg DAILY SC 02/15/25 10:00 02/17/25 09:46 40 MG Octreotide Acetate 100 mcg TID SUBCUT 02/14/25 14:00 02/18/25 06:44 100 MCG Dopamine HCl/ Dextrose 250 ml @ 4.069 mls/ hr Q24H IV 02/14/25 11:00 02/17/25 00:20 4.069 MLS/HR Enteral Nutritional Formula 1,000 ml 30ML/HR GT 02/14/25 12:45 02/14/25 17:59 1,000 ML Sennosides 8.6 mg HS PO 02/14/25 22:00 02/17/25 22:00 8.6 MG Quetiapine Fumarate 25 mg BID PO 02/15/25 10:00 02/18/25 08:54 25 MG Meropenem 50 ml @ 17 mls/hr Q8HR IV 02/15/25 14:00 02/18/25 06:32 17 MLS/HR Pantoprazole Sodium 40 mg DAILY IV 02/17/25 10:00 02/18/25 08:55 40 MG Vancomycin HCl 350 ml @ 200 mls/hr DAILY IV 02/17/25 10:00 02/17/25 09:45 200 MLS/HR Lactulose 30 ml BID PO 02/17/25 22:00 02/18/25 08:54 30 ML Furosemide 40 mg DAILY IV 02/18/25 10:00 02/18/25 08:55 40 MG Examination: LUNGS:Abnormal, CVS:Normal, MSK:Normal laboratory and microbiology Laboratory Tests 02/18/25 03:04 Test 02/18/25 03:04 Range/Units Serum Glucose 115 H 74-106 mg/dL Microbiology Date/Time Source Procedure Growth Status 02/13/25 08:15 Nose MRSA Screen - Final Complete 02/11/25 19:38 Blood Blood Culture - Final NO GROWTH AFTER 5 DAYS OF INCUBATION. Complete Problem List/Assessment/Plan Problem List/Assessment/Plan ALEXIS superimposed Chronic Kidney Disease secondary hemodynamic mediated, FeNa > 2% Acute respiratory failure, patient intubated on ventilator Septic shock Pneumonia secondary to Gram-positive Gram-negative bacteria HFrEF with a LVEF 20% End-stage dilated cardiomyopathy Transaminitis Polysubstance use Liver cirrhosis Hypokalemia Metabolic alkalosis Plan/recommendations: Kidney function resolved back to normal Increased urine output Hold diuretics Avoid nephrotoxic agent KCL replacement Diamox 500 mg IV Q 12 hours x4 doses Octreotide Urine studies Strict I&Os IV pressors for blood pressure support IV antibiotics Assess fluid status daily We will continue to follow up Plan discussed with: Other (Nurse) My Orders My Orders Orders - MARTÍN SARKAR MD Procedure Category Date Status Time Acetazolamide PHA 02/18/25 Verified Injection (Diamox 10:15 Potassium Chl Leo PHA 02/18/25 Verified KCL 10:15 Dietary Evaluation Review Comments: CCHO-60 Cardiac diet, texture as tolearated when medically feasible nicotine cessation counseling Follow up with updated lab values Expected Outcomes/Goals: Improved nurition related lab values, free from nicotine MARTÍN SARKAR MD Feb 18, 2025 10:16
[2025-02-18] MEDS: POTASSIUM CHL 20MEQ/100ML 100 ML IV SCH (10:37)
[2025-02-18] MEDS: D5W 5% 1,000 ML IV SCH (10:38)
--- NOTE | 2025-02-18 13:44 | DVHPN2 ---
Subjective in bed resting not intubated Reviewed: Care Plan, H&P, Labs, Medications, Previous Orders, Radiology Changes from previous H/P or p: No Changes Eyes: No Pain, No Vision change, No Conjunctivae inflammation, No Eyelid inflammation, No Other, No Redness ENT: No Ear pain, No Ear discharge, No Nose pain, No Nose discharge, No Nose congestion, No Mouth pain, No Mouth swelling, No Throat pain, No Throat swelling, No Other Cardiovascular: No Chest Pain, No Palpitations, No Orthopnea, No Paroxysmal Noc. Dyspnea, No Edema, No Lt Headedness, No Other Respiratory: No Cough, No Dry; Shortness of breath, SOB with excertion; No Wheezing, No Hemoptysis, No Pleuritic Pain, No Sputum; Other (SOB at rest) Gastrointestinal: No Nausea, No Vomiting; Abdominal Pain; No Diarrhea, No Constipation, No Melena, No Hematochezia; Other (Abdominal distention) Genitourinary: No Dysuria, No Frequency, No Incontinence, No Hematuria, No Retention, No Other Musculoskeletal: No other, No neck pain, No shoulder pain, No arm pain, No back pain, No hand pain, No leg pain, No foot pain Skin: No Rash, No Lesions, No Jaundice, No Bruising; Other (Lower extremity open wounds) Objective Vitals Vital Signs Date Time Temp Pulse Resp B/P (MAP) Pulse Ox O2 Delivery O2 Flow Rate FiO2 02/18/25 13:00 97.2 92 16 116/81 (93) 99 97.2 02/18/25 11:39 30 02/18/25 11:32 Mechanical Ventilator+ Intake/Output Intake and Output 02/18/25 07:00 Intake Total 1088.828 ml Output Total 3950 ml Balance -2861.172 ml Intake Oral 182 ml IV Total 606.828 ml Tube Feeding 300 ml Output Urine Total 3950 ml General Appearance: Other (intubate, on vent, unable to examined.) HEENT: Atraumatic, PERRLA, EOMI, Mucous membr. moist/pink Neck: Supple Lungs: Clear to auscultation, Normal air movement Cardiovascular: Regular rate, Normal S1, Normal S2, No murmurs, Gallops, Rubs Abdomen: Normal bowel sounds, Soft, No tenderness Neuro: Other (intubate, on vent , unable to examined.) Medications Current Medications Medications Dose Ordered Sig/Geraldo Route Start Time Stop Time Status Last Admin Dose Admin Albuterol 2.5 mg Q4HPRN PRN NEB 02/11/25 22:15 02/15/25 06:13 2.5 MG Ipratropium [place] 0.5 mg Q4HPRN PRN NEB 02/11/25 22:15 02/15/25 06:13 0.5 MG Diagnostic Test (Pha) 1 strip ACHS 02/12/25 07:00 02/18/25 10:18 1 STRIP Insulin Human Regular ACHS SC 02/12/25 07:00 02/17/25 17:21 2 UNITS Dextrose 50 ml UD PRN IV 02/11/25 22:15 Sodium Chloride 10 ml Q8HR IV 02/12/25 06:00 02/18/25 13:31 10 ML Acetaminophen/ Hydrocodone Bitart 1 tab Q4HP PRN PO 02/11/25 22:15 02/13/25 00:10 1 TAB Acetaminophen 650 mg Q6HP PRN PO 02/11/25 22:15 Tamsulosin HCl 0.4 mg QPM PO 02/12/25 18:00 02/16/25 16:56 0.4 MG Aspirin 81 mg DAILY PO 02/12/25 10:00 02/17/25 09:48 81 MG Nicotine 1 patch DAILY TD 02/13/25 10:00 Norepinephrine Bitartrate 32 mg/ Sodium Chloride 250 ml @ 0.938 mls/ hr Q24H IV 02/13/25 08:45 02/14/25 12:15 2.813 MLS/HR Vancomycin HCl 0 ml @ 0 mls/hr PER PHARMACY IV 02/13/25 12:00 Midazolam HCl 100 ml @ 1 mls/hr Q24H IV 02/13/25 14:30 02/13/25 14:42 1 MLS/HR Fentanyl Citrate 250 ml @ 2.5 mls/hr Q24H IV 02/13/25 14:45 02/15/25 10:45 15 MLS/HR Enoxaparin Sodium 40 mg DAILY SC 02/15/25 10:00 02/17/25 09:46 40 MG Octreotide Acetate 100 mcg TID SUBCUT 02/14/25 14:00 02/18/25 13:29 100 MCG Enteral Nutritional Formula 1,000 ml 30ML/HR GT 02/14/25 12:45 02/14/25 17:59 1,000 ML Sennosides 8.6 mg HS PO 02/14/25 22:00 02/17/25 22:00 8.6 MG Quetiapine Fumarate 25 mg BID PO 02/15/25 10:00 02/18/25 08:54 25 MG Meropenem 50 ml @ 17 mls/hr Q8HR IV 02/15/25 14:00 02/18/25 13:30 17 MLS/HR Pantoprazole Sodium 40 mg DAILY IV 02/17/25 10:00 02/18/25 08:55 40 MG Vancomycin HCl 350 ml @ 200 mls/hr DAILY IV 02/17/25 10:00 02/18/25 10:31 200 MLS/HR Lactulose 30 ml BID PO 02/17/25 22:00 02/18/25 08:54 30 ML Acetazolamide Sodium 500 mg Q12HR IV 02/18/25 10:15 02/19/25 22:01 Potassium Chloride 100 ml @ 50 mls/hr Q2H IV 02/18/25 10:15 02/18/25 16:14 02/18/25 12:43 50 MLS/HR Dextrose 1,000 ml @ 100 mls/hr Q10H IV 02/18/25 10:30 02/18/25 10:38 100 MLS/HR Laboratory Results Laboratory Tests 02/18/25 03:04 Chemistry Test 02/18/25 03:04 Albumin 3.0 g/dL (3.2-4.8) L Calcium Level 8.6 mg/dL (8.7-10.4) L Magnesium Level 2.2 mg/dL (1.6-2.6) Phosphorus Level 3.1 mg/dL (2.4-5.1) Total Protein 5.8 g/dL (5.7-8.2) LFT Test 02/18/25 03:04 Alanine Aminotransferase (ALT) 62 U/L (7-40) H Alkaline Phosphatase 93 U/L (46-116) Aspartate Amino Transferase (AST) 44 U/L (13-40) H Total Bilirubin 1.4 mg/dL (0.2-1.0) H Urinalysis Test 02/14/25 11:30 Urine Creatinine 22.66 mg/dL (30.0-125.0) L Urine Protein/Creatinine Ratio 0.26 Urine Sodium 47 mmol/L (40-220) Urine Total Protein < 6.0 mg/dL (1-14) Blood Gas Results Test 02/18/25 06:42 Arterial Blood pH 7.437 (7.350-7.450) FiO2 % 30.0 Microbiology Microbiology Date/Time Source Procedure Growth Status 02/13/25 08:15 Nose MRSA Screen - Final Complete 02/11/25 19:38 Blood Blood Culture - Final NO GROWTH AFTER 5 DAYS OF INCUBATION. Complete Assessment/Plan Assessment/Plan 64 M with HTN, HFrEF 20%, DM, ascites, meth use admitted for SOB, later was found in respiratory distress, intubated and had PEA arrest, ROSC in 4 minutes. 02/14 s/p thora, 2 L out. switched to lasix drip. start TF. POCUS done, minimal tapable pocket in abdomen. wound culture with prelim growth. wound care 02/15 wound culture back, changed abx to vanc and layton, starting oral meds for weaning, patient previously agitated, to decrease prevent self extubation. lasix drip switched to 60 BID. SAT SBT tomorrow. 02/16 hold diuresis today, POCUS with improving IVC, off sedation, not waking up still. 02/17 adding diamox, metabolic alkalosis, decrease RR, holding methadone and klonazepam, off sedation, opening eyes to name, not following command, c/w SAT SBT. 02/18 off sedation and calm physical exam on bipap obese opening eyes to name cannot appreciate JVD mechanical breath sounds S1 S2 systolic murmur abdomen distended b/l LE edema w/ chronic venous wounds vent ac/vc 550 16 30% PEEP 6 7.302/50/77 drips levophed off fentanyl off labs reviewed acetinobacter, pseudomonas, e faecalis, MRSA in wound cultrue imaging cxr RLL opacity echo LVEF 20%, DCM, MR assessment and plan s/p PEA arrest ROSC 4 mins cardiogenic shock acute on chronic hypoxic RF acute on chronic systolic HF small R PLEF COPD with exacerbation PNA gp vs gn HFrEF 20% DCM transaminitis cirrhosis? ascites? ALEXIS likely VMN on CKD? 3 lactic acidosis meth use leukocytosis type 2 LA demand ischemia DM? chronic venous stasis wound with multiple bact L testicular mass? ICU SAT SBT titrate levophed to maintain MAP >60 c/w mechanical vent hold diuresis c/w sedation, maintain RAAS -2, added methadone, klonopin, seroquel trend lactate, cr, LFT c/w vanc , zosyn switched to layton avoid fever VAP bundle bronchodilators hold GDMT until off pressors send A1C, lipid, tsh wound care daily SAT SBT keep K 4 Ph 3 Mg 2 Diet jevity to goal DVT PPX lovenox GI PPX protonix Lines RIJ TLC NGT jaffe Full code condition critical prognosis poor critical care time 40 minutes Plan discussed with: Patient My Orders Orders - SAMUEL CARL MD Procedure Category Date Status Time Chest Portable XY 02/18/25 Logged 11:34 Date of Service: Feb 18, 2025 Billing Provider: SAMUEL CARL MD Common Visit Codes: [id number] CARE 30-74 MIN SAMUEL CARL MD Feb 18, 2025 13:44
[2025-02-18] MEDS: FLEET ENEMA(ADULT) 135 ML PR ONE (15:55)
--- NOTE | 2025-02-18 16:32 | DVH ---
EXAM: XY CHEST PORTABLE HISTORY: New NG TUBE PLACEMENT TECHNIQUE: 1 view of the chest COMPARISON: XY CHEST PORTABLE on DOS: 02/18/25 FINDINGS/IMPRESSION: LUNGS: Volume overload with peripheral interstitial edema. Retrocardiac opacification with small left-sided pleural effusion. MEDIASTINUM: Normal cardiac size BONES: No acute osseous abnormality. OTHER: Endotracheal tube 4.8 cm above the veronica. Right internal jugular central venous catheter with distal tip in the inferior right atrium. Enteric tube in the stomach.
--- NOTE | 2025-02-18 19:52 | DVHPN2 ---
Progress Note - Dictate Date Seen: Feb 18, 2025 Medical Necessity Reason Pt with a Central, PICC or Fol: Yes The following are medically ne: Central Line, Aguilar Catheter Subjective Patient intubated sedated Patient underwent CPAP trial today There was some blood from the ETT about suctioning No bowel movement recorded Patient on tube feedings at 30 mL/hour vital signs Vital Sign Date Time Temp Pulse Resp B/P (MAP) Pulse Ox O2 Delivery O2 Flow Rate FiO2 02/18/25 18:30 97.3 83 17 114/75 (88) 98 207.1 02/18/25 18:25 30 02/18/25 17:30 Mechanical Ventilator+ Total Intake and Output 02/17/25 02/17/25 02/18/25 15:00 23:00 07:00 Intake Total 419.121 ml 421.707 ml 248 ml Output Total 2400 ml 1550 ml Balance 419.121 ml -1978.293 ml -1302 ml medications Current Medications Medications Dose Ordered Sig/Geraldo Route Start Time Stop Time Status Last Admin Dose Admin Albuterol 2.5 mg Q4HPRN PRN NEB 02/11/25 22:15 02/15/25 06:13 2.5 MG Ipratropium [place] 0.5 mg Q4HPRN PRN NEB 02/11/25 22:15 02/15/25 06:13 0.5 MG Diagnostic Test (Pha) 1 strip ACHS 02/12/25 07:00 02/18/25 18:19 1 STRIP Insulin Human Regular ACHS SC 02/12/25 07:00 02/17/25 17:21 2 UNITS Dextrose 50 ml UD PRN IV 02/11/25 22:15 Sodium Chloride 10 ml Q8HR IV 02/12/25 06:00 02/18/25 13:31 10 ML Acetaminophen/ Hydrocodone Bitart 1 tab Q4HP PRN PO 02/11/25 22:15 02/13/25 00:10 1 TAB Acetaminophen 650 mg Q6HP PRN PO 02/11/25 22:15 Tamsulosin HCl 0.4 mg QPM PO 02/12/25 18:00 02/18/25 18:21 0.4 MG Aspirin 81 mg DAILY PO 02/12/25 10:00 02/17/25 09:48 81 MG Nicotine 1 patch DAILY TD 02/13/25 10:00 Norepinephrine Bitartrate 32 mg/ Sodium Chloride 250 ml @ 0.938 mls/ hr Q24H IV 02/13/25 08:45 02/14/25 12:15 2.813 MLS/HR Vancomycin HCl 0 ml @ 0 mls/hr PER PHARMACY IV 02/13/25 12:00 Midazolam HCl 100 ml @ 1 mls/hr Q24H IV 02/13/25 14:30 02/13/25 14:42 1 MLS/HR Fentanyl Citrate 250 ml @ 2.5 mls/hr Q24H IV 02/13/25 14:45 02/15/25 10:45 15 MLS/HR Enoxaparin Sodium 40 mg DAILY SC 02/15/25 10:00 02/17/25 09:46 40 MG Octreotide Acetate 100 mcg TID SUBCUT 02/14/25 14:00 02/18/25 13:29 100 MCG Enteral Nutritional Formula 1,000 ml 30ML/HR GT 02/14/25 12:45 02/14/25 17:59 1,000 ML Sennosides 8.6 mg HS PO 02/14/25 22:00 02/17/25 22:00 8.6 MG Quetiapine Fumarate 25 mg BID PO 02/15/25 10:00 02/18/25 08:54 25 MG Meropenem 50 ml @ 17 mls/hr Q8HR IV 02/15/25 14:00 02/18/25 13:30 17 MLS/HR Pantoprazole Sodium 40 mg DAILY IV 02/17/25 10:00 02/18/25 08:55 40 MG Vancomycin HCl 350 ml @ 200 mls/hr DAILY IV 02/17/25 10:00 02/18/25 10:31 200 MLS/HR Lactulose 30 ml BID PO 02/17/25 22:00 02/18/25 08:54 30 ML Acetazolamide Sodium 500 mg Q12HR IV 02/18/25 10:15 02/19/25 22:01 Dextrose 1,000 ml @ 100 mls/hr Q10H IV 02/18/25 10:30 02/18/25 10:38 100 MLS/HR objective General: Overweight, afebrile, palor, mucosae are moist intubated sedated Cardiovascular: Regular S1 and S2. No murmurs, gallops or rubs. No JVD elevation. Pedal edema Respiratory: Decreased bilateral air entry on auscultation, mechanically ventilated Abdomen: Soft, nontender, nondistended, normoactive bowel sounds, no rebound tenderness, no organomegaly, no masses. Purulent vesicles on lower abdomen. Penile swelling. Small clots and Aguilar noted. Bilateral lower extremity, cyanosed, bluish, 3+ pedal edema, minimal pulses, laboratory and microbiology Laboratory Tests 02/18/25 03:04 Test 02/18/25 03:04 Range/Units Serum Glucose 115 H 74-106 mg/dL Problems(with codes): (1) Decompensated heart failure (2) Liver disease, chronic (3) Cyst of epididymis determined by ultrasound (4) Anasarca (5) Lactic acidosis (6) Generalized weakness Prognosis Plan Continue supportive care Liver enzymes are trending down Await elevated liver enzymes likely due to hypoxic liver injury Hepatitis panel negative and ferritin level is normal Tube feedings as tolerated CPAP trial as tolerated Fleets enema x1 On oral lactulose and senna Dietary Evaluation Review Comments: CCHO-60 Cardiac diet, texture as tolearated when medically feasible nicotine cessation counseling Follow up with updated lab values Expected Outcomes/Goals: Improved nurition related lab values, free from nicotine Plan discussed with: Other (ICU Nurse) NADINE SUTTON MD Feb 18, 2025 19:52
--- NOTE | 2025-02-18 23:18 | DVHPN2 ---
Subjective DOS: 02/18/2025 Patient seen and examined at bedside. intubated on mechanical ventilator. Overnight events reviewed. Reviewed: Care Plan, H&P, Labs, Medications, Previous Orders, Radiology Changes from previous H/P or p: No Changes Eyes: No Pain, No Vision change, No Conjunctivae inflammation, No Eyelid inflammation, No Other, No Redness ENT: No Ear pain, No Ear discharge, No Nose pain, No Nose discharge, No Nose congestion, No Mouth pain, No Mouth swelling, No Throat pain, No Throat swelling, No Other Cardiovascular: No Chest Pain, No Palpitations, No Orthopnea, No Paroxysmal Noc. Dyspnea, No Edema, No Lt Headedness, No Other Respiratory: No Cough, No Dry; Shortness of breath, SOB with excertion; No Wheezing, No Hemoptysis, No Pleuritic Pain, No Sputum; Other (SOB at rest) Gastrointestinal: No Nausea, No Vomiting; Abdominal Pain; No Diarrhea, No Constipation, No Melena, No Hematochezia; Other (Abdominal distention) Genitourinary: No Dysuria, No Frequency, No Incontinence, No Hematuria, No Retention, No Other Musculoskeletal: No other, No neck pain, No shoulder pain, No arm pain, No back pain, No hand pain, No leg pain, No foot pain Skin: No Rash, No Lesions, No Jaundice, No Bruising; Other (Lower extremity open wounds) Objective Vitals Vital Signs Date Time Temp Pulse Resp B/P (MAP) Pulse Ox O2 Delivery O2 Flow Rate FiO2 02/18/25 22:15 87 18 108/72 (84) 100 02/18/25 22:10 30 02/18/25 22:00 Mechanical Ventilator+ 02/18/25 20:00 98.0 98.0 Intake/Output Intake and Output 02/18/25 07:00 Intake Total 1088.828 ml Output Total 3950 ml Balance -2861.172 ml Intake Oral 182 ml IV Total 606.828 ml Tube Feeding 300 ml Output Urine Total 3950 ml Exam Gen.: Patient lying in bed in medical ICU. Intubated on mechanical ventilator. Head: Normocephalic, atraumatic. Eyes: PERRLA. Ears: Normal external anatomy. Throat: Endotracheal tube and orogastric tube in place. Neck: Supple, trachea midline. Chest: Transmitted breath sounds bilaterally. Decreased air entry bilaterally. No wheezing. Bibasilar crackles. Cardiovascular: Positive S1, positive S2. Regular rate and rhythm. Abdomen: Positive bowel sounds in all 4 quadrants. Soft, nontender, nondistended. : Aguilar in place. Normal external genitalia. Rectal: Deferred. Skin: Warm, dry. Intact. Extremities: 2+ radial pulses bilaterally. No lower extremity edema. Neuro: Off sedation General Appearance: Other (intubate, on vent, unable to examined.) HEENT: Atraumatic, PERRLA, EOMI, Mucous membr. moist/pink Neck: Supple Lungs: Clear to auscultation, Normal air movement Cardiovascular: Regular rate, Normal S1, Normal S2, No murmurs, Gallops, Rubs Abdomen: Normal bowel sounds, Soft, No tenderness Neuro: Other (intubate, on vent , unable to examined.) Medications Current Medications Medications Dose Ordered Sig/Geraldo Route Start Time Stop Time Status Last Admin Dose Admin Albuterol 2.5 mg Q4HPRN PRN NEB 02/11/25 22:15 02/15/25 06:13 2.5 MG Ipratropium [place] 0.5 mg Q4HPRN PRN NEB 02/11/25 22:15 02/15/25 06:13 0.5 MG Diagnostic Test (Pha) 1 strip ACHS 02/12/25 07:00 02/18/25 21:51 1 STRIP Insulin Human Regular ACHS SC 02/12/25 07:00 02/17/25 17:21 2 UNITS Dextrose 50 ml UD PRN IV 02/11/25 22:15 Sodium Chloride 10 ml Q8HR IV 02/12/25 06:00 02/18/25 21:51 10 ML Acetaminophen/ Hydrocodone Bitart 1 tab Q4HP PRN PO 02/11/25 22:15 02/13/25 00:10 1 TAB Acetaminophen 650 mg Q6HP PRN PO 02/11/25 22:15 Tamsulosin HCl 0.4 mg QPM PO 02/12/25 18:00 02/18/25 18:21 0.4 MG Aspirin 81 mg DAILY PO 02/12/25 10:00 02/17/25 09:48 81 MG Nicotine 1 patch DAILY TD 02/13/25 10:00 Norepinephrine Bitartrate 32 mg/ Sodium Chloride 250 ml @ 0.938 mls/ hr Q24H IV 02/13/25 08:45 02/14/25 12:15 2.813 MLS/HR Vancomycin HCl 0 ml @ 0 mls/hr PER PHARMACY IV 02/13/25 12:00 Midazolam HCl 100 ml @ 1 mls/hr Q24H IV 02/13/25 14:30 02/13/25 14:42 1 MLS/HR Fentanyl Citrate 250 ml @ 2.5 mls/hr Q24H IV 02/13/25 14:45 02/15/25 10:45 15 MLS/HR Enoxaparin Sodium 40 mg DAILY SC 02/15/25 10:00 02/17/25 09:46 40 MG Octreotide Acetate 100 mcg TID SUBCUT 02/14/25 14:00 02/18/25 21:50 100 MCG Enteral Nutritional Formula 1,000 ml 30ML/HR GT 02/14/25 12:45 02/14/25 17:59 1,000 ML Sennosides 8.6 mg HS PO 02/14/25 22:00 02/18/25 21:50 8.6 MG Quetiapine Fumarate 25 mg BID PO 02/15/25 10:00 02/18/25 21:50 25 MG Meropenem 50 ml @ 17 mls/hr Q8HR IV 02/15/25 14:00 02/18/25 21:50 17 MLS/HR Pantoprazole Sodium 40 mg DAILY IV 02/17/25 10:00 02/18/25 08:55 40 MG Vancomycin HCl 350 ml @ 200 mls/hr DAILY IV 02/17/25 10:00 02/18/25 10:31 200 MLS/HR Lactulose 30 ml BID PO 02/17/25 22:00 02/18/25 21:50 30 ML Acetazolamide Sodium 500 mg Q12HR IV 02/18/25 10:15 02/19/25 22:01 Dextrose 1,000 ml @ 100 mls/hr Q10H IV 02/18/25 10:30 02/18/25 22:31 100 MLS/HR Laboratory Results Laboratory Tests 02/18/25 03:04 Chemistry Test 02/18/25 03:04 Albumin 3.0 g/dL (3.2-4.8) L Calcium Level 8.6 mg/dL (8.7-10.4) L Magnesium Level 2.2 mg/dL (1.6-2.6) Phosphorus Level 3.1 mg/dL (2.4-5.1) Total Protein 5.8 g/dL (5.7-8.2) LFT Test 02/18/25 03:04 Alanine Aminotransferase (ALT) 62 U/L (7-40) H Alkaline Phosphatase 93 U/L (46-116) Aspartate Amino Transferase (AST) 44 U/L (13-40) H Total Bilirubin 1.4 mg/dL (0.2-1.0) H Urinalysis Test 02/14/25 11:30 Urine Creatinine 22.66 mg/dL (30.0-125.0) L Urine Protein/Creatinine Ratio 0.26 Urine Sodium 47 mmol/L (40-220) Urine Total Protein < 6.0 mg/dL (1-14) Blood Gas Results Test 02/18/25 06:42 Arterial Blood pH 7.437 (7.350-7.450) FiO2 % 30.0 Microbiology Microbiology Date/Time Source Procedure Growth Status 02/13/25 08:15 Nose MRSA Screen - Final Complete 02/11/25 19:38 Blood Blood Culture - Final NO GROWTH AFTER 5 DAYS OF INCUBATION. Complete Assessment/Plan Assessment/Plan Impression: Acute hypoxemic respiratory failure On mechanical ventilator Pleural effusion Atelectasis S/p cardiac arrest Cardiomyopathy Congestive heart failure Obesity Events: Remains on vent support On AC mode; RR 18, VT 450, PEEP 6, FiO2 30% Off sedation for 48 hours Off dopamine this AM. Nephrology recs appreciated. Patient is awake, alert, not following commands. Placed on CPAP for exercise. CPAP with PS 8, PEEP of 6. Abdominal x-ray shows no e/o bowel obstruction Tube feeds for nutritional support Continue antibiotics IV fluids with D5 at 100 ml/hr. On Diamox IV Diurese with Lasix Monitor renal function Monitor electrolytes. Supplement as necessary. Potassium supplementation Labs and imaging reviewed. Rest of plan as noted below. Plan: s/p intubation on mechanical ventilator. On AC mode; RR 18, VT 450, PEEP 6, FiO2 30% Titrate FIO2 to keep O2 saturation above 90%. VAP bundle. Daily ABG and CXR while intubated Patient is s/p right thoracentesis. Continue bronchodilators. Continue antibiotics. Follow up cultures. Monitor WBC count Pressors as necessary for hemodynamic support Titrate to keep mean arterial pressure greater than 65 mmHg. Echo report reviewed; EF approximately 20% Cardiology recs appreciated. On Protonix, Sandostatin Monitor hemoglobin Tube feeds for nutritional support Follow up GI recs Diurese with Lasix Monitor renal function Monitor electrolytes. Supplement as necessary. Monitor ins and outs. Maintain euvolemia. GI prophylaxis -Protonix. DVT prophylaxis - Lovenox. Prognosis: Poor given patient's multiple co-morbidities. Condition: Critical Rest of plan per hospitalist and other consultants. A total of 35 minutes of critical care time was spent reviewing the patient record, examining the patient, making a diagnostic and therapeutic plan, discussing this plan with the medical personnel, following up on diagnostic studies and following the patient for clinical stability excluding any and all procedures. At least 50% of this time was spent in direct, [id number] contact. Thank you, Dr. Blas, for allowing me to participate in this patient's care. Further recommendations will depend on the patient's clinical course. Please do not hesitate to contact me if you have any questions or concerns. This medical document was created using an electronic medical record system with [employer] dictation system. Although these documentations are being carefully reviewed, there may still be some phonetic and typographical changes. The errors are purely typographical, due to imperfection on the software program, and do not reflect any compromise in the patient's medical care. Plan discussed with: Other (LEIGHTON Almodovar) Visit Coding Pulmonary Billing Provider: DOLORES VELAZQUEZ MD Date of Service if different f: Feb 18, 2025 Common Visit Codes: [id number] INP/OBS CARE(HIGH), [id number] CARE 30-74 MIN DOLORES VELAZQUEZ MD Feb 18, 2025 23:17
[2025-02-19] VITALS (106 sets, daily range): BP systolic 90–121; BP diastolic 55–82; PULSE 65–110; RESP 11–33; TEMP 97–98.1; O2SAT 89–100
[2025-02-19 03:38] LABS: Hematocrit 39.9 % (41.0-53.0); Hemoglobin 13.0 g/dL (13.5-17.5); Mean Corpuscular Hemoglobin 30.9 pg (28.0-32.0); Mean Corpuscular Volume 94.8 fL (80.0-100.0); Nucleated Red Blood Cells % 0.2 %
[2025-02-19 03:58] LABS: Alkaline Phosphatase 86 U/L (46-116); Anion Gap 8 (5-15); BUN/Creatinine Ratio 29.7 (10.0-20.0); Blood Urea Nitrogen 22 mg/dL (9-23); Chloride 105 mmol/L (98-107)
[2025-02-19 05:05] LABS: Alanine Aminotransferase 55 U/L (7-40); Albumin 2.8 g/dL (3.2-4.8); Bilirubin, Total 1.6 mg/dL (0.2-1.0); Calcium 8.4 mg/dL (8.7-10.4); Carbon Dioxide 37 mmol/L (20-31); Glucose 114 mg/dL (74-106); Potassium 3.4 mmol/L (3.5-5.1); Sodium 150 mmol/L (136-145); Total Protein 5.5 g/dL (5.7-8.2)
--- NOTE | 2025-02-19 05:39 | DVH ---
MEDICAL RECORDS NUMBER: [id number] PROCEDURE: XY CHEST PORTABLE DATE: 02/19/2025 05:03 AM HISTORY: INTUBATED Views:1 COMPARISON: XY CHEST PORTABLE on DOS: 02/18/25, XY CHEST PORTABLE on DOS: 02/18/25, XY CHEST PORTABLE on DOS: 02/14/25, XY CHEST XRAY 1 VIEW on DOS: 02/13/25, XY CHEST PORTABLE on DOS: 02/11/25 FINDINGS/IMPRESSION: Lungs: Patchy bilateral infiltrates are seen particularly on the right. Minor basilar fluid and atelectasis is questioned. Mediastinum: Mediastinal structures appear unremarkable.A right-sided central line is seen. The tip projects over the superior vena cava. No pneumothorax is seen.Nasogastric tube courses through the film. ET tube is seen in expected position Skeletal: The skeletal structures appear unremarkable.
[2025-02-19] MEDS: POTASSIUM EFFERVESENT TAB 25 MEQ GT ONE (06:14)
[2025-02-19 07:39] LABS: INR 1.16 (0.9-1.15); Prothrombin Time 12.1 sec (9.3-11.8)
[2025-02-19 09:16] LABS: Base Excess 7.4 mmol/L (-2.0-3.0)
--- NOTE | 2025-02-19 11:27 | DVHPN2 ---
Progress Note Date Seen: Feb 19, 2025 Medical Necessity Reason Pt with a Central, PICC or Fol: Yes The following are medically ne: Central Line, Aguilar Catheter Subjective Review of Systems: RESPIRATORY:Abnormal Other Systems: Patient seen and examined by myself today in follow-up, patient remained intubated on ventilator Objective vital signs Vital Sign Date Time Temp Pulse Resp B/P (MAP) Pulse Ox O2 Delivery O2 Flow Rate FiO2 02/19/25 10:14 106 15 116/69 (85) 100 30 02/19/25 06:45 97.5 207.5 02/19/25 06:00 Mechanical Ventilator+ Total Intake and Output 02/18/25 02/18/25 02/19/25 15:00 23:00 07:00 Intake Total 504 ml 800 ml 1041 ml Output Total 2250 ml 750 ml Balance 504 ml -1450 ml 291 ml medications Current Medications Medications Dose Ordered Sig/Geraldo Route Start Time Stop Time Status Last Admin Dose Admin Albuterol 2.5 mg Q4HPRN PRN NEB 02/11/25 22:15 02/15/25 06:13 2.5 MG Ipratropium [place] 0.5 mg Q4HPRN PRN NEB 02/11/25 22:15 02/15/25 06:13 0.5 MG Diagnostic Test (Pha) 1 strip ACHS 02/12/25 07:00 02/19/25 05:27 1 STRIP Insulin Human Regular ACHS SC 02/12/25 07:00 02/17/25 17:21 2 UNITS Dextrose 50 ml UD PRN IV 02/11/25 22:15 Sodium Chloride 10 ml Q8HR IV 02/12/25 06:00 02/19/25 05:18 10 ML Acetaminophen/ Hydrocodone Bitart 1 tab Q4HP PRN PO 02/11/25 22:15 02/13/25 00:10 1 TAB Acetaminophen 650 mg Q6HP PRN PO 02/11/25 22:15 Tamsulosin HCl 0.4 mg QPM PO 02/12/25 18:00 02/18/25 18:21 0.4 MG Aspirin 81 mg DAILY PO 02/12/25 10:00 02/17/25 09:48 81 MG Nicotine 1 patch DAILY TD 02/13/25 10:00 02/19/25 10:39 1 PATCH Norepinephrine Bitartrate 32 mg/ Sodium Chloride 250 ml @ 0.938 mls/ hr Q24H IV 02/13/25 08:45 02/14/25 12:15 2.813 MLS/HR Vancomycin HCl 0 ml @ 0 mls/hr PER PHARMACY IV 02/13/25 12:00 Midazolam HCl 100 ml @ 1 mls/hr Q24H IV 02/13/25 14:30 02/13/25 14:42 1 MLS/HR Fentanyl Citrate 250 ml @ 2.5 mls/hr Q24H IV 02/13/25 14:45 02/15/25 10:45 15 MLS/HR Enoxaparin Sodium 40 mg DAILY SC 02/15/25 10:00 02/17/25 09:46 40 MG Octreotide Acetate 100 mcg TID SUBCUT 02/14/25 14:00 02/19/25 05:17 100 MCG Enteral Nutritional Formula 1,000 ml 30ML/HR GT 02/14/25 12:45 02/14/25 17:59 1,000 ML Sennosides 8.6 mg HS PO 02/14/25 22:00 02/18/25 21:50 8.6 MG Quetiapine Fumarate 25 mg BID PO 02/15/25 10:00 02/19/25 10:37 25 MG Meropenem 50 ml @ 17 mls/hr Q8HR IV 02/15/25 14:00 02/19/25 05:17 17 MLS/HR Pantoprazole Sodium 40 mg DAILY IV 02/17/25 10:00 02/19/25 10:37 40 MG Vancomycin HCl 350 ml @ 200 mls/hr DAILY IV 02/17/25 10:00 02/19/25 10:38 200 MLS/HR Lactulose 30 ml BID PO 02/17/25 22:00 02/19/25 10:37 30 ML Acetazolamide Sodium 500 mg Q12HR IV 02/18/25 10:15 02/19/25 22:01 Potassium Chloride 20 meq/ Dextrose 1,010 ml @ 150 mls/hr Q6H44M IV 02/19/25 11:30 UNV Examination: LUNGS:Normal, CVS:Normal, MSK:Normal laboratory and microbiology Laboratory Tests 02/19/25 02:51 Test 02/19/25 02:51 Range/Units Serum Glucose 114 H 74-106 mg/dL Microbiology Date/Time Source Procedure Growth Status 02/13/25 08:15 Nose MRSA Screen - Final Complete 02/11/25 19:38 Blood Blood Culture - Final NO GROWTH AFTER 5 DAYS OF INCUBATION. Complete Problem List/Assessment/Plan Problem List/Assessment/Plan ALEXIS superimposed Chronic Kidney Disease secondary hemodynamic mediated, FeNa > 2% Acute respiratory failure, patient intubated on ventilator Septic shock Pneumonia secondary to Gram-positive Gram-negative bacteria HFrEF with a LVEF 20% End-stage dilated cardiomyopathy Transaminitis Polysubstance use Liver cirrhosis Hypokalemia Metabolic alkalosis Hyponatremia due to dehydration Polyuria rule out diabetes insipidus Plan/recommendations: Kidney function resolved back to normal Increased urine output Hold diuretics Avoid nephrotoxic agent KCL replacement Diamox 500 mg IV Q 12 hours x4 doses Octreotide Urine studies Strict I&Os KCL replacement IVF D5W at 150 cc/hour IV pressors for blood pressure support IV antibiotics Assess fluid status daily We will continue to follow up Plan discussed with: Other (Nurse) My Orders My Orders Orders - MARTÍN SARKAR MD Procedure Category Date Status Time D5w 5% (Dextrose 5%) PHA 02/19/25 Logged W/Potassium Chlorid 11:30 Urine Sodium LAB 02/19/25 Transmitted 11:24 Urine Creatinine LAB 02/19/25 Transmitted 11:24 Osmolality Urine LAB 02/19/25 Verified 11:24 Dietary Evaluation Review Comments[facility] Cardiac diet, texture as tolearated when medically feasible nicotine cessation counseling Follow up with updated lab values Expected Outcomes/Goals: Improved nurition related lab values, free from nicotine MARTÍN SARKAR MD Feb 19, 2025 11:27
[2025-02-19] MEDS: FREE WATER GT SCH (13:44)
--- NOTE | 2025-02-19 14:24 | DVHPN2 ---
Subjective in bed intubated Reviewed: Care Plan, H&P, Labs, Medications, Previous Orders, Radiology Changes from previous H/P or p: No Changes Eyes: No Pain, No Vision change, No Conjunctivae inflammation, No Eyelid inflammation, No Other, No Redness ENT: No Ear pain, No Ear discharge, No Nose pain, No Nose discharge, No Nose congestion, No Mouth pain, No Mouth swelling, No Throat pain, No Throat swelling, No Other Cardiovascular: No Chest Pain, No Palpitations, No Orthopnea, No Paroxysmal Noc. Dyspnea, No Edema, No Lt Headedness, No Other Respiratory: No Cough, No Dry; Shortness of breath, SOB with excertion; No Wheezing, No Hemoptysis, No Pleuritic Pain, No Sputum; Other (SOB at rest) Gastrointestinal: No Nausea, No Vomiting; Abdominal Pain; No Diarrhea, No Constipation, No Melena, No Hematochezia; Other (Abdominal distention) Genitourinary: No Dysuria, No Frequency, No Incontinence, No Hematuria, No Retention, No Other Musculoskeletal: No other, No neck pain, No shoulder pain, No arm pain, No back pain, No hand pain, No leg pain, No foot pain Skin: No Rash, No Lesions, No Jaundice, No Bruising; Other (Lower extremity open wounds) Objective Vitals Vital Signs Date Time Temp Pulse Resp B/P (MAP) Pulse Ox O2 Delivery O2 Flow Rate FiO2 02/19/25 14:00 30 02/19/25 12:15 78 18 106/67 (80) 96 02/19/25 06:45 97.5 207.5 02/19/25 06:00 Mechanical Ventilator+ Intake/Output Intake and Output 02/19/25 05:00 Intake Total 2249 ml Output Total 3000 ml Balance -751 ml Intake Oral 120 ml IV Total 1908 ml Tube Feeding 221 ml Output Urine Total 3000 ml General Appearance: Other (intubate, on vent, unable to examined.) HEENT: Atraumatic, PERRLA, EOMI, Mucous membr. moist/pink Neck: Supple Lungs: Clear to auscultation, Normal air movement Cardiovascular: Regular rate, Normal S1, Normal S2, No murmurs, Gallops, Rubs Abdomen: Normal bowel sounds, Soft, No tenderness Neuro: Other (intubate, on vent , unable to examined.) Medications Current Medications Medications Dose Ordered Sig/Geraldo Route Start Time Stop Time Status Last Admin Dose Admin Albuterol 2.5 mg Q4HPRN PRN NEB 02/11/25 22:15 02/15/25 06:13 2.5 MG Ipratropium [place] 0.5 mg Q4HPRN PRN NEB 02/11/25 22:15 02/15/25 06:13 0.5 MG Diagnostic Test (Pha) 1 strip ACHS 02/12/25 07:00 02/19/25 12:30 1 STRIP Insulin Human Regular ACHS SC 02/12/25 07:00 02/17/25 17:21 2 UNITS Dextrose 50 ml UD PRN IV 02/11/25 22:15 Sodium Chloride 10 ml Q8HR IV 02/12/25 06:00 02/19/25 13:43 10 ML Acetaminophen/ Hydrocodone Bitart 1 tab Q4HP PRN PO 02/11/25 22:15 02/13/25 00:10 1 TAB Acetaminophen 650 mg Q6HP PRN PO 02/11/25 22:15 Tamsulosin HCl 0.4 mg QPM PO 02/12/25 18:00 02/18/25 18:21 0.4 MG Aspirin 81 mg DAILY PO 02/12/25 10:00 02/17/25 09:48 81 MG Nicotine 1 patch DAILY TD 02/13/25 10:00 02/19/25 10:39 1 PATCH Norepinephrine Bitartrate 32 mg/ Sodium Chloride 250 ml @ 0.938 mls/ hr Q24H IV 02/13/25 08:45 02/14/25 12:15 2.813 MLS/HR Vancomycin HCl 0 ml @ 0 mls/hr PER PHARMACY IV 02/13/25 12:00 Midazolam HCl 100 ml @ 1 mls/hr Q24H IV 02/13/25 14:30 02/13/25 14:42 1 MLS/HR Fentanyl Citrate 250 ml @ 2.5 mls/hr Q24H IV 02/13/25 14:45 02/15/25 10:45 15 MLS/HR Enoxaparin Sodium 40 mg DAILY SC 02/15/25 10:00 02/17/25 09:46 40 MG Octreotide Acetate 100 mcg TID SUBCUT 02/14/25 14:00 02/19/25 13:43 100 MCG Enteral Nutritional Formula 1,000 ml 30ML/HR GT 02/14/25 12:45 02/14/25 17:59 1,000 ML Sennosides 8.6 mg HS PO 02/14/25 22:00 02/18/25 21:50 8.6 MG Quetiapine Fumarate 25 mg BID PO 02/15/25 10:00 02/19/25 10:37 25 MG Meropenem 50 ml @ 17 mls/hr Q8HR IV 02/15/25 14:00 02/19/25 13:42 17 MLS/HR Pantoprazole Sodium 40 mg DAILY IV 02/17/25 10:00 02/19/25 10:37 40 MG Vancomycin HCl 350 ml @ 200 mls/hr DAILY IV 02/17/25 10:00 02/19/25 10:38 200 MLS/HR Lactulose 30 ml BID PO 02/17/25 22:00 02/19/25 10:37 30 ML Potassium Chloride 20 meq/ Dextrose 1,010 ml @ 150 mls/hr Q6H44M IV 02/19/25 11:30 Purified Water 200 ml Q4HR GT 02/19/25 14:00 02/19/25 13:44 200 ML Acetazolamide 500 mg Q12HR PO 02/19/25 22:00 02/21/25 10:01 Laboratory Results Laboratory Tests 02/19/25 02:51 Chemistry Test 02/19/25 02:51 Albumin 2.8 g/dL (3.2-4.8) L Calcium Level 8.4 mg/dL (8.7-10.4) L Total Protein 5.5 g/dL (5.7-8.2) L Coagulation Test 02/19/25 06:49 Prothrombin Time 12.1 sec (9.3-11.8) H Prothrombin Time INR 1.16 (0.9-1.15) H LFT Test 02/19/25 02:51 Alanine Aminotransferase (ALT) 55 U/L (7-40) H Alkaline Phosphatase 86 U/L (46-116) Aspartate Amino Transferase (AST) 44 U/L (13-40) H Total Bilirubin 1.6 mg/dL (0.2-1.0) H Urinalysis Test 02/14/25 11:30 Urine Creatinine 22.66 mg/dL (30.0-125.0) L Urine Protein/Creatinine Ratio 0.26 Urine Sodium 47 mmol/L (40-220) Urine Total Protein < 6.0 mg/dL (1-14) Blood Gas Results Test 02/19/25 08:17 Arterial Blood pH 7.406 (7.350-7.450) FiO2 % 30.0 Microbiology Microbiology Date/Time Source Procedure Growth Status 02/13/25 08:15 Nose MRSA Screen - Final Complete 02/11/25 19:38 Blood Blood Culture - Final NO GROWTH AFTER 5 DAYS OF INCUBATION. Complete Assessment/Plan Assessment/Plan 64 M with HTN, HFrEF 20%, DM, ascites, meth use admitted for SOB, later was found in respiratory distress, intubated and had PEA arrest, ROSC in 4 minutes. 02/14 s/p thora, 2 L out. switched to lasix drip. start TF. POCUS done, minimal tapable pocket in abdomen. wound culture with prelim growth. wound care 02/15 wound culture back, changed abx to vanc and layton, starting oral meds for weaning, patient previously agitated, to decrease prevent self extubation. lasix drip switched to 60 BID. SAT SBT tomorrow. 02/16 hold diuresis today, POCUS with improving IVC, off sedation, not waking up still. 02/17 adding diamox, metabolic alkalosis, decrease RR, holding methadone and klonazepam, off sedation, opening eyes to name, not following command, c/w SAT SBT. 02/18 off sedation and calm 02/19 continues to remain intubated and off sedation physical exam on bipap obese opening eyes to name cannot appreciate JVD mechanical breath sounds S1 S2 systolic murmur abdomen distended b/l LE edema w/ chronic venous wounds vent ac/vc 550 16 30% PEEP 6 7.302/50/77 drips levophed off fentanyl off labs reviewed acetinobacter, pseudomonas, e faecalis, MRSA in wound cultrue imaging cxr RLL opacity echo LVEF 20%, DCM, MR assessment and plan s/p PEA arrest ROSC 4 mins cardiogenic shock acute on chronic hypoxic RF acute on chronic systolic HF small R PLEF COPD with exacerbation PNA gp vs gn HFrEF 20% DCM transaminitis cirrhosis? ascites? ALEXIS likely VMN on CKD? 3 lactic acidosis meth use leukocytosis type 2 SC demand ischemia DM? chronic venous stasis wound with multiple bact L testicular mass? ICU SAT SBT titrate levophed to maintain MAP >60 c/w mechanical vent hold diuresis c/w sedation, maintain RAAS -2, added methadone, klonopin, seroquel trend lactate, cr, LFT c/w vanc , zosyn switched to layton avoid fever VAP bundle bronchodilators hold GDMT until off pressors send A1C, lipid, tsh wound care daily SAT SBT keep K 4 Ph 3 Mg 2 Diet jevity to goal DVT PPX lovenox GI PPX protonix Lines RIJ TLC NGT jaffe Full code condition critical prognosis poor critical care time 40 minutes Plan discussed with: Patient Date of Service: Feb 19, 2025 Billing Provider: SAMUEL CARL MD Common Visit Codes: [id number] INP/OBS CARE(HIGH), [id number] CARE 30-74 MIN SAMUEL CARL MD Feb 19, 2025 14:24
[2025-02-19] MEDS: POTASSIUM CHLORIDE 20 MEQ in D5W 5% 1,000 ML IV SCH (14:47)
--- NOTE | 2025-02-19 14:57 | DVHPN2 ---
Progress Note Date Seen: Feb 19, 2025 Resident Creating Document: WILLIAMS DANG RESIDENT Medical Necessity Reason Pt with a Central, PICC or Fol: Yes The following are medically ne: Central Line, Aguilar Catheter Subjective Review of Systems Underwent 1 bowel movement. Continue tube feeding. Normoactive bowel sounds. Apnea noted after CPAP trial yesterday 02/18 Bili 1.6, LFTs trending down Objective vital signs Vital Sign Date Time Temp Pulse Resp B/P (MAP) Pulse Ox O2 Delivery O2 Flow Rate FiO2 02/19/25 14:30 77 17 100/61 (74) 98 02/19/25 14:23 30 02/19/25 14:00 Mechanical Ventilator+ 02/19/25 11:15 97.5 207.5 Total Intake and Output 02/18/25 02/18/25 02/19/25 15:00 23:00 07:00 Intake Total 504 ml 800 ml 1041 ml Output Total 2250 ml 750 ml Balance 504 ml -1450 ml 291 ml medications Current Medications Medications Dose Ordered Sig/Geraldo Route Start Time Stop Time Status Last Admin Dose Admin Albuterol 2.5 mg Q4HPRN PRN NEB 02/11/25 22:15 02/15/25 06:13 2.5 MG Ipratropium [place] 0.5 mg Q4HPRN PRN NEB 02/11/25 22:15 02/15/25 06:13 0.5 MG Diagnostic Test (Pha) 1 strip ACHS 02/12/25 07:00 02/19/25 12:30 1 STRIP Insulin Human Regular ACHS SC 02/12/25 07:00 02/17/25 17:21 2 UNITS Dextrose 50 ml UD PRN IV 02/11/25 22:15 Sodium Chloride 10 ml Q8HR IV 02/12/25 06:00 02/19/25 13:43 10 ML Acetaminophen/ Hydrocodone Bitart 1 tab Q4HP PRN PO 02/11/25 22:15 02/13/25 00:10 1 TAB Acetaminophen 650 mg Q6HP PRN PO 02/11/25 22:15 Tamsulosin HCl 0.4 mg QPM PO 02/12/25 18:00 02/18/25 18:21 0.4 MG Aspirin 81 mg DAILY PO 02/12/25 10:00 02/17/25 09:48 81 MG Nicotine 1 patch DAILY TD 02/13/25 10:00 02/19/25 10:39 1 PATCH Norepinephrine Bitartrate 32 mg/ Sodium Chloride 250 ml @ 0.938 mls/ hr Q24H IV 02/13/25 08:45 02/14/25 12:15 2.813 MLS/HR Vancomycin HCl 0 ml @ 0 mls/hr PER PHARMACY IV 02/13/25 12:00 Midazolam HCl 100 ml @ 1 mls/hr Q24H IV 02/13/25 14:30 02/13/25 14:42 1 MLS/HR Fentanyl Citrate 250 ml @ 2.5 mls/hr Q24H IV 02/13/25 14:45 02/15/25 10:45 15 MLS/HR Enoxaparin Sodium 40 mg DAILY SC 02/15/25 10:00 02/17/25 09:46 40 MG Octreotide Acetate 100 mcg TID SUBCUT 02/14/25 14:00 02/19/25 13:43 100 MCG Enteral Nutritional Formula 1,000 ml 30ML/HR GT 02/14/25 12:45 02/14/25 17:59 1,000 ML Sennosides 8.6 mg HS PO 02/14/25 22:00 02/18/25 21:50 8.6 MG Quetiapine Fumarate 25 mg BID PO 02/15/25 10:00 02/19/25 10:37 25 MG Meropenem 50 ml @ 17 mls/hr Q8HR IV 02/15/25 14:00 02/19/25 13:42 17 MLS/HR Pantoprazole Sodium 40 mg DAILY IV 02/17/25 10:00 02/19/25 10:37 40 MG Vancomycin HCl 350 ml @ 200 mls/hr DAILY IV 02/17/25 10:00 02/19/25 10:38 200 MLS/HR Lactulose 30 ml BID PO 02/17/25 22:00 02/19/25 10:37 30 ML Potassium Chloride 20 meq/ Dextrose 1,010 ml @ 150 mls/hr Q6H44M IV 02/19/25 11:30 02/19/25 14:47 150 MLS/HR Purified Water 200 ml Q4HR GT 02/19/25 14:00 02/19/25 13:44 200 ML Acetazolamide 500 mg Q12HR PO 02/19/25 22:00 02/21/25 10:01 Examination Patient lying in bed, on mechanical ventilation General: Overweight, afebrile, palor, mucosae are moist Cardiovascular: Regular S1 and S2. No murmurs, gallops or rubs. No JVD elevation. Pedal edema Respiratory: Decreased bilateral air entry on auscultation, mechanically ventilated Abdomen: Soft, nontender, nondistended, normoactive bowel sounds, no rebound tenderness, no organomegaly, no masses. Purulent vesicles on lower abdomen. Penile swelling. Small clots and Aguilar noted. Bilateral lower extremity, cyanosed, bluish, 3+ pedal edema, minimal pulses, cold laboratory and microbiology Laboratory Tests 02/19/25 02:51 Test 02/19/25 02:51 Range/Units Serum Glucose 114 H 74-106 mg/dL Microbiology Date/Time Source Procedure Growth Status 02/13/25 08:15 Nose MRSA Screen - Final Complete 02/11/25 19:38 Blood Blood Culture - Final NO GROWTH AFTER 5 DAYS OF INCUBATION. Complete Labs and/or images reviewed: Labs reviewed by me, Image(s) reviewed by me Problem List/Assessment/Plan Problem List/Assessment/Plan Cirrhosis Acute hypoxic respiratory failure status post intubation Systolic Heart failure with reduced ejection fraction exacerbation NSTEMI Hypertension Hyperkalemia Rule out STI Acute kidney injury Peripheral arterial disease Methamphetamine use dependence Liver ultrasound shows Heterogeneous appearing liver suggesting chronic liver disease. Plan: Recommendation: Bilirubin downtrending, LFTs downtrending. H&H stable. Monitor CMP in a.m.. Continue lactulose 30 mL b.i.d. and senna. Continue conservative management. Currently on D5W for hypernatremia CPAP trial as tolerated Consider urology consultation for epididymis cyst versus mass Hepatitis panel negative Continue tube feedings HIV, syphilis negative. Gonorrhea and chlamydia pending Protonix 40 mg daily Plan discussed with the primary RN in which all questions have been answered Case discussed with Dr. Urena Plan discussed with: Other (Nurse) Dietary Evaluation Review Comments: CCHO-60 Cardiac diet, texture as tolearated when medically feasible nicotine cessation counseling Follow up with updated lab values Expected Outcomes/Goals: Improved nurition related lab values, free from nicotine WILLIAMS DANG RESIDENT Feb 19, 2025 14:57
--- NOTE | 2025-02-19 15:05 | CONS ---
Pharmacy Clinical Information: Pt on enoxaparin since 02/14, PLTs have decreased from 206 to 90, consider ch anging to a DOAC? DAVIS POWERS PHARMACIST Feb 19, 2025 15:05
[2025-02-19] MEDS: DEXMEDETOMIDINE HCL IN D5W 100 ML IV SCH (17:15)
[2025-02-19] MEDS: acetaZOLAMIDE 250 MG TAB PO SCH (21:43)
--- NOTE | 2025-02-19 23:15 | DVHPN2 ---
Subjective DOS: 02/19/2025 Patient seen and examined at bedside. Sedated, intubated on mechanical ventilator. Overnight events reviewed. Reviewed: Care Plan, H&P, Labs, Medications, Previous Orders, Radiology Changes from previous H/P or p: No Changes Eyes: No Pain, No Vision change, No Conjunctivae inflammation, No Eyelid inflammation, No Other, No Redness ENT: No Ear pain, No Ear discharge, No Nose pain, No Nose discharge, No Nose congestion, No Mouth pain, No Mouth swelling, No Throat pain, No Throat swelling, No Other Cardiovascular: No Chest Pain, No Palpitations, No Orthopnea, No Paroxysmal Noc. Dyspnea, No Edema, No Lt Headedness, No Other Respiratory: No Cough, No Dry; Shortness of breath, SOB with excertion; No Wheezing, No Hemoptysis, No Pleuritic Pain, No Sputum; Other (SOB at rest) Gastrointestinal: No Nausea, No Vomiting; Abdominal Pain; No Diarrhea, No Constipation, No Melena, No Hematochezia; Other (Abdominal distention) Genitourinary: No Dysuria, No Frequency, No Incontinence, No Hematuria, No Retention, No Other Musculoskeletal: No other, No neck pain, No shoulder pain, No arm pain, No back pain, No hand pain, No leg pain, No foot pain Skin: No Rash, No Lesions, No Jaundice, No Bruising; Other (Lower extremity open wounds) Objective Vitals Vital Signs Date Time Temp Pulse Resp B/P (MAP) Pulse Ox O2 Delivery O2 Flow Rate FiO2 02/19/25 22:05 75 21 93/64 (74) 97 30 02/19/25 18:30 97.9 208.2 02/19/25 18:00 Mechanical Ventilator+ Intake/Output Intake and Output 02/19/25 07:00 Intake Total 2445 ml Output Total 3000 ml Balance -555 ml Intake Oral 120 ml IV Total 2104 ml Tube Feeding 221 ml Output Urine Total 3000 ml Exam Gen.: Patient lying in bed in medical ICU. Sedated, intubated on mechanical ventilator. Head: Normocephalic, atraumatic. Eyes: PERRLA. Ears: Normal external anatomy. Throat: Endotracheal tube and orogastric tube in place. Neck: Supple, trachea midline. Chest: Transmitted breath sounds bilaterally. Decreased air entry bilaterally. No wheezing. Bibasilar crackles. Cardiovascular: Positive S1, positive S2. Regular rate and rhythm. Abdomen: Positive bowel sounds in all 4 quadrants. Soft, nontender, nondistended. : Aguilar in place. Normal external genitalia. Rectal: Deferred. Skin: Warm, dry. Intact. Extremities: 2+ radial pulses bilaterally. No lower extremity edema. Neuro: Sedated General Appearance: Other (intubate, on vent, unable to examined.) HEENT: Atraumatic, PERRLA, EOMI, Mucous membr. moist/pink Neck: Supple Lungs: Clear to auscultation, Normal air movement Cardiovascular: Regular rate, Normal S1, Normal S2, No murmurs, Gallops, Rubs Abdomen: Normal bowel sounds, Soft, No tenderness Neuro: Other (intubate, on vent , unable to examined.) Medications Current Medications Medications Dose Ordered Sig/Geraldo Route Start Time Stop Time Status Last Admin Dose Admin Albuterol 2.5 mg Q4HPRN PRN NEB 02/11/25 22:15 02/15/25 06:13 2.5 MG Ipratropium [place] 0.5 mg Q4HPRN PRN NEB 02/11/25 22:15 02/15/25 06:13 0.5 MG Diagnostic Test (Pha) 1 strip ACHS 02/12/25 07:00 02/19/25 21:42 1 STRIP Insulin Human Regular ACHS SC 02/12/25 07:00 02/19/25 18:06 3 UNITS Dextrose 50 ml UD PRN IV 02/11/25 22:15 Sodium Chloride 10 ml Q8HR IV 02/12/25 06:00 02/19/25 21:43 10 ML Acetaminophen/ Hydrocodone Bitart 1 tab Q4HP PRN PO 02/11/25 22:15 02/13/25 00:10 1 TAB Acetaminophen 650 mg Q6HP PRN PO 02/11/25 22:15 Tamsulosin HCl 0.4 mg QPM PO 02/12/25 18:00 02/19/25 18:05 0.4 MG Aspirin 81 mg DAILY PO 02/12/25 10:00 02/17/25 09:48 81 MG Nicotine 1 patch DAILY TD 02/13/25 10:00 02/19/25 10:39 1 PATCH Norepinephrine Bitartrate 32 mg/ Sodium Chloride 250 ml @ 0.938 mls/ hr Q24H IV 02/13/25 08:45 02/14/25 12:15 2.813 MLS/HR Vancomycin HCl 0 ml @ 0 mls/hr PER PHARMACY IV 02/13/25 12:00 Midazolam HCl 100 ml @ 1 mls/hr Q24H IV 02/13/25 14:30 02/13/25 14:42 1 MLS/HR Fentanyl Citrate 250 ml @ 2.5 mls/hr Q24H IV 02/13/25 14:45 02/15/25 10:45 15 MLS/HR Enoxaparin Sodium 40 mg DAILY SC 02/15/25 10:00 02/17/25 09:46 40 MG Octreotide Acetate 100 mcg TID SUBCUT 02/14/25 14:00 02/19/25 21:42 100 MCG Enteral Nutritional Formula 1,000 ml 30ML/HR GT 02/14/25 12:45 02/14/25 17:59 1,000 ML Sennosides 8.6 mg HS PO 02/14/25 22:00 02/19/25 21:43 8.6 MG Quetiapine Fumarate 25 mg BID PO 02/15/25 10:00 02/19/25 21:41 25 MG Meropenem 50 ml @ 17 mls/hr Q8HR IV 02/15/25 14:00 02/19/25 21:43 17 MLS/HR Pantoprazole Sodium 40 mg DAILY IV 02/17/25 10:00 02/19/25 10:37 40 MG Vancomycin HCl 350 ml @ 200 mls/hr DAILY IV 02/17/25 10:00 02/19/25 10:38 200 MLS/HR Lactulose 30 ml BID PO 02/17/25 22:00 02/19/25 21:43 30 ML Potassium Chloride 20 meq/ Dextrose 1,010 ml @ 150 mls/hr Q6H44M IV 02/19/25 11:30 02/19/25 21:42 150 MLS/HR Purified Water 200 ml Q4HR GT 02/19/25 14:00 02/19/25 21:44 200 ML Acetazolamide 500 mg Q12HR PO 02/19/25 22:00 02/21/25 10:01 02/19/25 21:43 500 MG Laboratory Results Laboratory Tests 02/19/25 02:51 Chemistry Test 02/19/25 02:51 Albumin 2.8 g/dL (3.2-4.8) L Calcium Level 8.4 mg/dL (8.7-10.4) L Total Protein 5.5 g/dL (5.7-8.2) L Coagulation Test 02/19/25 06:49 Prothrombin Time 12.1 sec (9.3-11.8) H Prothrombin Time INR 1.16 (0.9-1.15) H LFT Test 02/19/25 02:51 Alanine Aminotransferase (ALT) 55 U/L (7-40) H Alkaline Phosphatase 86 U/L (46-116) Aspartate Amino Transferase (AST) 44 U/L (13-40) H Total Bilirubin 1.6 mg/dL (0.2-1.0) H Urinalysis Test 02/14/25 11:30 02/19/25 13:50 Urine Protein/Creatinine Ratio 0.26 Urine Total Protein < 6.0 mg/dL (1-14) Urine Osmolality 587 mOsm/kg Urine Creatinine 76.95 mg/dL (30.0-125.0) Urine Sodium 79 mmol/L (40-220) Blood Gas Results Test 02/19/25 08:17 Arterial Blood pH 7.406 (7.350-7.450) FiO2 % 30.0 Microbiology Microbiology Date/Time Source Procedure Growth Status 02/13/25 08:15 Nose MRSA Screen - Final Complete 02/11/25 19:38 Blood Blood Culture - Final NO GROWTH AFTER 5 DAYS OF INCUBATION. Complete Assessment/Plan Assessment/Plan Impression: Acute hypoxemic respiratory failure On mechanical ventilator Pleural effusion Atelectasis S/p cardiac arrest Cardiomyopathy Congestive heart failure Obesity Events: Remains on vent support On AC mode; RR 18, VT 500, PEEP 6, FiO2 30% Patient was re-sedated Precedex drip OK for agitation On Seroquel. Off dopamine. Nephrology recs appreciated. Tolerated CPAP today for 2 hours. [place] frothy secretions via ET tube. Tube feeds for nutritional support Continue antibiotics Nephrology recs appreciated Na of 150 - started IV fluids at 150 ml/hr. Diurese to euvolemia Monitor renal function Monitor electrolytes. Supplement as necessary. Potassium supplementation Abdomen x-ray shows no e/o bowel obstruction. Labs and imaging reviewed. Rest of plan as noted below. Plan: s/p intubation on mechanical ventilator. On AC mode; RR 18, VT 500, PEEP 6, FiO2 30% Titrate FIO2 to keep O2 saturation above 90%. VAP bundle. Daily ABG and CXR while intubated Patient is s/p right thoracentesis. Continue bronchodilators. Continue antibiotics. Follow up cultures. Monitor WBC count Pressors as necessary for hemodynamic support Titrate to keep mean arterial pressure greater than 65 mmHg. Echo report reviewed; EF approximately 20% Cardiology recs appreciated. On Protonix, Sandostatin Monitor hemoglobin Tube feeds for nutritional support Follow up GI recs Diurese with Lasix Monitor renal function Monitor electrolytes. Supplement as necessary. Monitor ins and outs. Maintain euvolemia. GI prophylaxis -Protonix. DVT prophylaxis - Lovenox. Prognosis: Poor given patient's multiple co-morbidities. Condition: Critical Rest of plan per hospitalist and other consultants. A total of 35 minutes of critical care time was spent reviewing the patient record, examining the patient, making a diagnostic and therapeutic plan, discussing this plan with the medical personnel, following up on diagnostic studies and following the patient for clinical stability excluding any and all procedures. At least 50% of this time was spent in direct, [id number] contact. Thank you, Dr. Blas, for allowing me to participate in this patient's care. Further recommendations will depend on the patient's clinical course. Please do not hesitate to contact me if you have any questions or concerns. This medical document was created using an electronic medical record system with [employer] dictation system. Although these documentations are being carefully reviewed, there may still be some phonetic and typographical changes. The errors are purely typographical, due to imperfection on the software program, and do not reflect any compromise in the patient's medical care. Plan discussed with: Other (LEIGHTON Garcia) My Orders Orders - DOLORES VELAZQUEZ MD Procedure Category Date Status Time Dexmedetomidine Hcl PHA 02/19/25 In Process In D5w (Precedex) 17:15 Cpap Trial For Am ORDERS 02/19/25 Transmitted 17:04 Chest Portable XY 02/20/25 Logged 04:00 Visit Coding Pulmonary Billing Provider: DOLORES VELAZQUEZ MD Date of Service if different f: Feb 19, 2025 Common Visit Codes: [id number] INP/OBS CARE(HIGH), [id number] CARE 30-74 MIN DOLORES VELAZQUEZ MD Feb 19, 2025 23:15
[2025-02-20] VITALS (104 sets, daily range): BP systolic 74–132; BP diastolic 47–93; PULSE 57–113; RESP 11–28; TEMP 97.6–99.4; O2SAT 86–100
[2025-02-20 03:28] LABS: Hematocrit 37.8 % (41.0-53.0); Hemoglobin 12.4 g/dL (13.5-17.5); Mean Corpuscular Hemoglobin 30.9 pg (28.0-32.0); Mean Corpuscular Volume 94.4 fL (80.0-100.0); Nucleated Red Blood Cells % 0.0 %
[2025-02-20 03:49] LABS: Alkaline Phosphatase 77 U/L (46-116); Anion Gap 6 (5-15); BUN/Creatinine Ratio 26.9 (10.0-20.0); Blood Urea Nitrogen 18 mg/dL (9-23); Chloride 103 mmol/L (98-107); Sodium 143 mmol/L (136-145)
[2025-02-20 04:01] LABS: Alanine Aminotransferase 46 U/L (7-40); Albumin 2.7 g/dL (3.2-4.8); Bilirubin, Total 1.3 mg/dL (0.2-1.0); Calcium 8.1 mg/dL (8.7-10.4); Carbon Dioxide 34 mmol/L (20-31); Glucose 140 mg/dL (74-106); Potassium 3.4 mmol/L (3.5-5.1); Total Protein 5.2 g/dL (5.7-8.2)
--- NOTE | 2025-02-20 04:30 | DVH ---
CHEST RADIOGRAPH Indication: et tube position Technique: Single frontal view of the chest was obtained Comparison: XY CHEST PORTABLE on DOS: 02/19/25 FINDINGS: Lines and Tubes: There is a right central venous catheter with the tip terminating in the right atrium. The enteric tube courses below the left hemidiaphragm and the tip extends outside the field of view. The endotracheal tube terminates 7 cm above the veronica. Lungs: Hazy bilateral opacities. Pleura: There are bilateral pleural effusions. No pneumothorax. Cardiomediastinal contours: Cardiomegaly. Bones: No acute osseous abnormality. IMPRESSION: 1. Endotracheal tube terminates 7 cm above the veronica. 2. Cardiomegaly with CHF. 3. Bilateral pleural effusions.
[2025-02-20] MEDS: POTASSIUM CHL 20MEQ/100ML 100 ML IV ONE (04:45)
[2025-02-20 07:29] LABS: Base Excess 1.8 mmol/L (-2.0-3.0)
[2025-02-20] MEDS ORDERED: clonazePAM 0.5 MG TAB PO PRN (13:00)
--- NOTE | 2025-02-20 13:06 | DVHPN2 ---
Assessment/Plan Assessment/Plan ICU note 64 M with HTN, HFrEF 20%, DM, ascites, meth use admitted for SOB, later was found in respiratory distress, intubated and had PEA arrest, ROSC in 4 minutes. 12 s/p thora, 2 L out. switched to lasix drip. start TF. POCUS done, minimal tapable pocket in abdomen. wound culture with prelim growth. wound care 02/15 wound culture back, changed abx to vanc and layton, starting oral meds for weaning, patient previously agitated, to decrease prevent self extubation. lasix drip switched to 60 BID. SAT SBT tomorrow. 02/16 hold diuresis today, POCUS with improving IVC, off sedation, not waking up still. 02/17 adding diamox, metabolic alkalosis, decrease RR, holding methadone and klonazepam, off sedation, opening eyes to name, not following command, c/w SAT SBT. 02/18 off sedation and calm 02/19 continues to remain intubated and off sedation 02/20 agitated, restarting methadone and clonazepam. will d/w fam regarding trach if he continues to be difficult to sedate. positive balance, readding lasix, discontinueing fluid. physical exam intubated on mechanical ventilator obese opening eyes to name cannot appreciate JVD mechanical breath sounds S1 S2 systolic murmur abdomen distended b/l LE edema w/ chronic venous wounds vent ac/vc 550 16 30% PEEP 6 7.302/50/77 drips levophed off fentanyl off labs reviewed acetinobacter, pseudomonas, e faecalis, MRSA in wound cultrue imaging cxr RLL opacity echo LVEF 20%, DCM, MR assessment and plan s/p PEA arrest ROSC 4 mins cardiogenic shock acute on chronic hypoxic RF acute on chronic systolic HF small R PLEF COPD with exacerbation PNA gp vs gn HFrEF 20% DCM transaminitis cirrhosis? ascites? ALEXIS likely VMN on CKD? 3 lactic acidosis meth use leukocytosis type 2 CO demand ischemia DM? chronic venous stasis wound with multiple bact L testicular mass? ICU SAT SBT titrate levophed to maintain MAP >60 c/w mechanical vent hold diuresis c/w sedation, maintain RAAS -2, added methadone, klonopin, seroquel trend lactate, cr, LFT c/w vanc , zosyn switched to layton avoid fever VAP bundle bronchodilators hold GDMT until off pressors send A1C, lipid, tsh wound care daily SAT SBT keep K 4 Ph 3 Mg 2 Diet jevity to goal DVT PPX lovenox GI PPX protonix Lines RIJ TLC NGT jaffe Full code condition critical prognosis poor critical care time 40 minutes Plan discussed with: Patient My Orders Orders - SYEDA VILLALOBOS MD Procedure Category Date Status Time Furosemide Injection PHA 02/20/25 Logged (Lasix Injection) 18:00 Methadone Hcl Tablet PHA 02/20/25 Logged (Methadone Hcl Tabl 14:00 Clonazepam Tablet PHA 02/20/25 Transmitted (Klonopin Tablet) 13:00 Complete Blood Count LAB 02/21/25 Verified 04:00 Comprehensive LAB 02/21/25 Verified Metabolic Panel 04:00 Magnesium LAB 02/21/25 Verified 04:00 Phosphorus LAB 02/21/25 Verified 04:00 Date of Service: Feb 20, 2025 Billing Provider: SYEDA VILLALOBOS MD Common Visit Codes: [id number] CARE 30-74 MIN SYEDA VILLALOBOS MD Feb 20, 2025 13:06
--- NOTE | 2025-02-20 13:08 | DVHPN2 ---
Progress Note Date Seen: Feb 20, 2025 Resident Creating Document: MAURO FITCH RESIDENT Medical Necessity Reason Pt with a Central, PICC or Fol: Yes The following are medically ne: Central Line, Aguilar Catheter Subjective Review of Systems Patient seen and examined at the bedside. Unable to obtain ROS due to patient's clinical status. Patient reports: No new complaints Objective vital signs Vital Sign Date Time Temp Pulse Resp B/P (MAP) Pulse Ox O2 Delivery O2 Flow Rate FiO2 02/20/25 11:58 85 20 110/79 (89) 99 30 02/20/25 10:00 Mechanical Ventilator+ 02/20/25 07:45 98.1 208.6 Total Intake and Output 02/19/25 02/19/25 02/20/25 15:00 23:00 07:00 Intake Total 900 ml 1730 ml 1466.083 ml Output Total 550 ml 550 ml Balance 900 ml 1180 ml 916.083 ml medications Current Medications Medications Dose Ordered Sig/Geraldo Route Start Time Stop Time Status Last Admin Dose Admin Albuterol 2.5 mg Q4HPRN PRN NEB 02/11/25 22:15 02/15/25 06:13 2.5 MG Ipratropium [place] 0.5 mg Q4HPRN PRN NEB 02/11/25 22:15 02/15/25 06:13 0.5 MG Diagnostic Test (Pha) 1 strip ACHS 02/12/25 07:00 02/20/25 11:30 1 STRIP Insulin Human Regular ACHS SC 02/12/25 07:00 02/20/25 12:37 3 UNITS Dextrose 50 ml UD PRN IV 02/11/25 22:15 Sodium Chloride 10 ml Q8HR IV 02/12/25 06:00 02/20/25 05:23 10 ML Acetaminophen/ Hydrocodone Bitart 1 tab Q4HP PRN PO 02/11/25 22:15 02/13/25 00:10 1 TAB Acetaminophen 650 mg Q6HP PRN PO 02/11/25 22:15 Tamsulosin HCl 0.4 mg QPM PO 02/12/25 18:00 02/19/25 18:05 0.4 MG Aspirin 81 mg DAILY PO 02/12/25 10:00 02/20/25 09:35 81 MG Nicotine 1 patch DAILY TD 02/13/25 10:00 02/19/25 10:39 1 PATCH Norepinephrine Bitartrate 32 mg/ Sodium Chloride 250 ml @ 0.938 mls/ hr Q24H IV 02/13/25 08:45 02/20/25 09:11 0.938 MLS/HR Vancomycin HCl 0 ml @ 0 mls/hr PER PHARMACY IV 02/13/25 12:00 Midazolam HCl 100 ml @ 1 mls/hr Q24H IV 02/13/25 14:30 02/13/25 14:42 1 MLS/HR Fentanyl Citrate 250 ml @ 2.5 mls/hr Q24H IV 02/13/25 14:45 02/20/25 07:45 2.5 MLS/HR Enoxaparin Sodium 40 mg DAILY SC 02/15/25 10:00 02/17/25 09:46 40 MG Octreotide Acetate 100 mcg TID SUBCUT 02/14/25 14:00 02/20/25 05:23 100 MCG Enteral Nutritional Formula 1,000 ml 30ML/HR GT 02/14/25 12:45 02/14/25 17:59 1,000 ML Sennosides 8.6 mg HS PO 02/14/25 22:00 02/19/25 21:43 8.6 MG Quetiapine Fumarate 25 mg BID PO 02/15/25 10:00 02/20/25 09:36 25 MG Meropenem 50 ml @ 17 mls/hr Q8HR IV 02/15/25 14:00 02/20/25 05:23 17 MLS/HR Pantoprazole Sodium 40 mg DAILY IV 02/17/25 10:00 02/20/25 09:35 40 MG Vancomycin HCl 350 ml @ 200 mls/hr DAILY IV 02/17/25 10:00 02/20/25 10:17 200 MLS/HR Lactulose 30 ml BID PO 02/17/25 22:00 02/19/25 21:43 30 ML Purified Water 200 ml Q4HR GT 02/19/25 14:00 02/20/25 09:37 200 ML Acetazolamide 500 mg Q12HR PO 02/19/25 22:00 02/21/25 10:01 02/20/25 12:13 500 MG Furosemide 40 mg BIDD IV 02/20/25 18:00 UNV Methadone HCl 10 mg Q8HR PO 02/20/25 14:00 UNV Clonazepam 0.5 mg Q12HP PRN PO 02/20/25 13:00 UNV Examination Pt is lying on bed General Appearance: Sedated and intubated on mechanical v HEENT: Atraumatic, Mucous membranes moist/pink Respiratory: diminished Cardiovascular: Regular rate, Normal S1, Normal S2, No murmurs Abdominal: Active bowel sounds, Soft, no distention, Extremities: 2+ BLE with the bluish discoloration Skin: bluish discoloration with eczematous rash in both lower extremities Neuro: deferred Nurse was there as medical technologist microbiology during examination laboratory and microbiology Laboratory Tests 02/20/25 02:41 Test 02/20/25 02:41 Range/Units Serum Glucose 140 H 74-106 mg/dL Microbiology Date/Time Source Procedure Growth Status 02/13/25 08:15 Nose MRSA Screen - Final Complete 02/11/25 19:38 Blood Blood Culture - Final NO GROWTH AFTER 5 DAYS OF INCUBATION. Complete Labs and/or images reviewed: Labs reviewed by me, Image(s) reviewed by me Problem List/Assessment/Plan Problem List/Assessment/Plan ALEXIS superimposed Chronic Kidney Disease secondary hemodynamic mediated, FeNa > 2% Acute respiratory failure, patient intubated on ventilator Septic shock Pneumonia secondary to Gram-positive Gram-negative bacteria HFrEF with a LVEF 20% End-stage dilated cardiomyopathy Transaminitis Polysubstance use Liver cirrhosis Hypokalemia Metabolic alkalosis Hyponatremia due to dehydration Polyuria rule out diabetes insipidus Plan/recommendations: Kidney function resolved back to normal Increased urine output Hold diuretics Avoid nephrotoxic agent KCL replacement Diamox 500 mg IV Q 12 hours x4 doses Octreotide Strict I&Os IVF D5W at 150 cc/hour IV pressors for blood pressure support IV antibiotics Assess fluid status daily We will continue to follow up Case discussed with the Dr. Matthew Plan discussed with: Other (rn) Dietary Evaluation Review Comments: CCHO-60 Cardiac diet, texture as tolearated when medically feasible nicotine cessation counseling Follow up with updated lab values Expected Outcomes/Goals: Improved nurition related lab values, free from nicotine MAURO FITCH RESIDENT Feb 20, 2025 13:08
[2025-02-20] MEDS: METHADONE HCL 10 MG TAB PO SCH (14:00)
--- NOTE | 2025-02-20 14:27 | DVHPN2 ---
Progress Note Date Seen: Feb 20, 2025 Resident Creating Document: WILLIAMS DANG RESIDENT Medical Necessity Reason Pt with a Central, PICC or Fol: Yes The following are medically ne: Central Line, Aguilar Catheter Subjective Review of Systems Abdomen soft, nontender, underwent bowel movement. Continue tube feedings. Objective vital signs Vital Sign Date Time Temp Pulse Resp B/P (MAP) Pulse Ox O2 Delivery O2 Flow Rate FiO2 02/20/25 14:00 72 18 103/65 (78) 99 30 02/20/25 12:00 Mechanical Ventilator+ 02/20/25 12:00 97.6 97.6 Total Intake and Output 02/19/25 02/19/25 02/20/25 15:00 23:00 07:00 Intake Total 900 ml 1730 ml 1466.083 ml Output Total 550 ml 550 ml Balance 900 ml 1180 ml 916.083 ml medications Current Medications Medications Dose Ordered Sig/Geraldo Route Start Time Stop Time Status Last Admin Dose Admin Albuterol 2.5 mg Q4HPRN PRN NEB 02/11/25 22:15 02/15/25 06:13 2.5 MG Ipratropium [place] 0.5 mg Q4HPRN PRN NEB 02/11/25 22:15 02/15/25 06:13 0.5 MG Diagnostic Test (Pha) 1 strip ACHS 02/12/25 07:00 02/20/25 11:30 1 STRIP Insulin Human Regular ACHS SC 02/12/25 07:00 02/20/25 12:37 3 UNITS Dextrose 50 ml UD PRN IV 02/11/25 22:15 Sodium Chloride 10 ml Q8HR IV 02/12/25 06:00 02/20/25 14:16 10 ML Acetaminophen/ Hydrocodone Bitart 1 tab Q4HP PRN PO 02/11/25 22:15 02/13/25 00:10 1 TAB Acetaminophen 650 mg Q6HP PRN PO 02/11/25 22:15 Tamsulosin HCl 0.4 mg QPM PO 02/12/25 18:00 02/19/25 18:05 0.4 MG Aspirin 81 mg DAILY PO 02/12/25 10:00 02/20/25 09:35 81 MG Nicotine 1 patch DAILY TD 02/13/25 10:00 02/19/25 10:39 1 PATCH Norepinephrine Bitartrate 32 mg/ Sodium Chloride 250 ml @ 0.938 mls/ hr Q24H IV 02/13/25 08:45 02/20/25 09:11 0.938 MLS/HR Vancomycin HCl 0 ml @ 0 mls/hr PER PHARMACY IV 02/13/25 12:00 Midazolam HCl 100 ml @ 1 mls/hr Q24H IV 02/13/25 14:30 02/13/25 14:42 1 MLS/HR Fentanyl Citrate 250 ml @ 2.5 mls/hr Q24H IV 02/13/25 14:45 02/20/25 07:45 2.5 MLS/HR Enoxaparin Sodium 40 mg DAILY SC 02/15/25 10:00 02/17/25 09:46 40 MG Octreotide Acetate 100 mcg TID SUBCUT 02/14/25 14:00 02/20/25 14:16 100 MCG Enteral Nutritional Formula 1,000 ml 30ML/HR GT 02/14/25 12:45 02/14/25 17:59 1,000 ML Sennosides 8.6 mg HS PO 02/14/25 22:00 02/19/25 21:43 8.6 MG Quetiapine Fumarate 25 mg BID PO 02/15/25 10:00 02/20/25 09:36 25 MG Meropenem 50 ml @ 17 mls/hr Q8HR IV 02/15/25 14:00 02/20/25 14:16 17 MLS/HR Pantoprazole Sodium 40 mg DAILY IV 02/17/25 10:00 02/20/25 09:35 40 MG Vancomycin HCl 350 ml @ 200 mls/hr DAILY IV 02/17/25 10:00 02/20/25 10:17 200 MLS/HR Lactulose 30 ml BID PO 02/17/25 22:00 02/19/25 21:43 30 ML Purified Water 200 ml Q4HR GT 02/19/25 14:00 02/20/25 14:16 200 ML Acetazolamide 500 mg Q12HR PO 02/19/25 22:00 02/21/25 10:01 02/20/25 12:13 500 MG Furosemide 40 mg BIDD IV 02/20/25 18:00 Methadone HCl 10 mg Q8HR PO 02/20/25 14:00 Clonazepam 0.5 mg Q12HP PRN PO 12/8/25 13:00 Examination Patient lying in bed, on mechanical ventilation General: Overweight, afebrile, palor, mucosae are moist Cardiovascular: Regular S1 and S2. No murmurs, gallops or rubs. No JVD elevation. Pedal edema Respiratory: Decreased bilateral air entry on auscultation, mechanically ventilated Abdomen: Soft, nontender, nondistended, normoactive bowel sounds, no rebound tenderness, no organomegaly, no masses. Purulent vesicles on lower abdomen. Penile swelling. Small clots and Aguilar noted. Bilateral lower extremity, cyanosed, bluish, 3+ pedal edema, minimal pulses, cold laboratory and microbiology Laboratory Tests 02/20/25 02:41 Test 02/20/25 02:41 Range/Units Serum Glucose 140 H 74-106 mg/dL Microbiology Date/Time Source Procedure Growth Status 02/13/25 08:15 Nose MRSA Screen - Final Complete 02/11/25 19:38 Blood Blood Culture - Final NO GROWTH AFTER 5 DAYS OF INCUBATION. Complete Labs and/or images reviewed: Labs reviewed by me, Image(s) reviewed by me Problem List/Assessment/Plan Problem List/Assessment/Plan Cirrhosis Acute hypoxic respiratory failure status post intubation Systolic Heart failure with reduced ejection fraction exacerbation NSTEMI Hypertension Hyperkalemia Rule out STI Acute kidney injury Peripheral arterial disease Methamphetamine use dependence Liver ultrasound shows Heterogeneous appearing liver suggesting chronic liver disease. Plan: Recommendation: Bilirubin downtrending, LFTs downtrending. H&H stable. Monitor CMP in a.m.. Continue lactulose 30 mL b.i.d. and senna. Continue conservative management. CPAP trial as tolerated Hepatitis panel negative Continue tube feedings HIV, syphilis negative. Gonorrhea and chlamydia pending Protonix 40 mg daily Plan discussed with the primary RN in which all questions have been answered Case discussed with Dr. Urena Plan discussed with: Other Dietary Evaluation Review Comments: [facility]-60 Cardiac diet, texture as tolearated when medically feasible nicotine cessation counseling Follow up with updated lab values Expected Outcomes/Goals: Improved nurition related lab values, free from nicotine WILLIAMS DANG RESIDENT Feb 20, 2025 14:27
[2025-02-20] MEDS: FUROSEMIDE 40 MG/4 ML VIAL IV SCH (16:42)
--- NOTE | 2025-02-20 23:14 | DVHPN2 ---
Subjective DOS: 02/20/2025 Patient seen and examined at bedside. Sedated, intubated on mechanical ventilator. Overnight events reviewed. Reviewed: Care Plan, H&P, Labs, Medications, Previous Orders, Radiology Changes from previous H/P or p: No Changes Eyes: No Pain, No Vision change, No Conjunctivae inflammation, No Eyelid inflammation, No Other, No Redness ENT: No Ear pain, No Ear discharge, No Nose pain, No Nose discharge, No Nose congestion, No Mouth pain, No Mouth swelling, No Throat pain, No Throat swelling, No Other Cardiovascular: No Chest Pain, No Palpitations, No Orthopnea, No Paroxysmal Noc. Dyspnea, No Edema, No Lt Headedness, No Other Respiratory: No Cough, No Dry; Shortness of breath, SOB with excertion; No Wheezing, No Hemoptysis, No Pleuritic Pain, No Sputum; Other (SOB at rest) Gastrointestinal: No Nausea, No Vomiting; Abdominal Pain; No Diarrhea, No Constipation, No Melena, No Hematochezia; Other (Abdominal distention) Genitourinary: No Dysuria, No Frequency, No Incontinence, No Hematuria, No Retention, No Other Musculoskeletal: No other, No neck pain, No shoulder pain, No arm pain, No back pain, No hand pain, No leg pain, No foot pain Skin: No Rash, No Lesions, No Jaundice, No Bruising; Other (Lower extremity open wounds) Objective Vitals Vital Signs Date Time Temp Pulse Resp B/P (MAP) Pulse Ox O2 Delivery O2 Flow Rate FiO2 02/20/25 22:18 79 18 111/73 (86) 99 30 02/20/25 18:00 Mechanical Ventilator+ 02/20/25 16:00 99.4 99.4 Intake/Output Intake and Output 02/20/25 07:00 Intake Total 4096.083 ml Output Total 1100 ml Balance 2996.083 ml Intake Oral 1180 ml IV Total 2916.083 ml Output Urine Total 1100 ml # Bowel Movements 2 Exam Gen.: Patient lying in bed in medical ICU. Sedated, intubated on mechanical ventilator. Head: Normocephalic, atraumatic. Eyes: PERRLA. Ears: Normal external anatomy. Throat: Endotracheal tube and orogastric tube in place. Neck: Supple, trachea midline. Chest: Transmitted breath sounds bilaterally. Decreased air entry bilaterally. No wheezing. Bibasilar crackles. Cardiovascular: Positive S1, positive S2. Regular rate and rhythm. Abdomen: Positive bowel sounds in all 4 quadrants. Soft, nontender, nondistended. : Aguilar in place. Normal external genitalia. Rectal: Deferred. Skin: Warm, dry. Intact. Extremities: 2+ radial pulses bilaterally. No lower extremity edema. Neuro: Sedated General Appearance: Other (intubate, on vent, unable to examined.) HEENT: Atraumatic, PERRLA, EOMI, Mucous membr. moist/pink Neck: Supple Lungs: Clear to auscultation, Normal air movement Cardiovascular: Regular rate, Normal S1, Normal S2, No murmurs, Gallops, Rubs Abdomen: Normal bowel sounds, Soft, No tenderness Neuro: Other (intubate, on vent , unable to examined.) Medications Current Medications Medications Dose Ordered Sig/Geraldo Route Start Time Stop Time Status Last Admin Dose Admin Albuterol 2.5 mg Q4HPRN PRN NEB 02/11/25 22:15 02/15/25 06:13 2.5 MG Ipratropium [place] 0.5 mg Q4HPRN PRN NEB 02/11/25 22:15 02/15/25 06:13 0.5 MG Diagnostic Test (Pha) 1 strip ACHS 02/12/25 07:00 02/20/25 21:42 1 STRIP Insulin Human Regular ACHS SC 02/12/25 07:00 02/20/25 22:01 2 UNITS Dextrose 50 ml UD PRN IV 02/11/25 22:15 Sodium Chloride 10 ml Q8HR IV 02/12/25 06:00 02/20/25 22:15 10 ML Acetaminophen/ Hydrocodone Bitart 1 tab Q4HP PRN PO 02/11/25 22:15 02/13/25 00:10 1 TAB Acetaminophen 650 mg Q6HP PRN PO 02/11/25 22:15 Tamsulosin HCl 0.4 mg QPM PO 02/12/25 18:00 02/19/25 18:05 0.4 MG Aspirin 81 mg DAILY PO 02/12/25 10:00 02/20/25 09:35 81 MG Nicotine 1 patch DAILY TD 02/13/25 10:00 02/19/25 10:39 1 PATCH Norepinephrine Bitartrate 32 mg/ Sodium Chloride 250 ml @ 0.938 mls/ hr Q24H IV 02/13/25 08:45 02/20/25 09:11 0.938 MLS/HR Vancomycin HCl 0 ml @ 0 mls/hr PER PHARMACY IV 02/13/25 12:00 Midazolam HCl 100 ml @ 1 mls/hr Q24H IV 02/13/25 14:30 02/13/25 14:42 1 MLS/HR Fentanyl Citrate 250 ml @ 2.5 mls/hr Q24H IV 02/13/25 14:45 02/20/25 07:45 2.5 MLS/HR Enoxaparin Sodium 40 mg DAILY SC 02/15/25 10:00 02/17/25 09:46 40 MG Octreotide Acetate 100 mcg TID SUBCUT 02/14/25 14:00 02/20/25 21:42 100 MCG Enteral Nutritional Formula 1,000 ml 30ML/HR GT 02/14/25 12:45 02/14/25 17:59 1,000 ML Sennosides 8.6 mg HS PO 02/14/25 22:00 02/20/25 21:43 8.6 MG Quetiapine Fumarate 25 mg BID PO 02/15/25 10:00 02/20/25 22:15 25 MG Meropenem 50 ml @ 17 mls/hr Q8HR IV 02/15/25 14:00 02/20/25 21:42 17 MLS/HR Pantoprazole Sodium 40 mg DAILY IV 02/17/25 10:00 02/20/25 09:35 40 MG Vancomycin HCl 350 ml @ 200 mls/hr DAILY IV 02/17/25 10:00 02/20/25 10:17 200 MLS/HR Lactulose 30 ml BID PO 02/17/25 22:00 02/20/25 21:42 30 ML Purified Water 200 ml Q4HR GT 02/19/25 14:00 02/20/25 21:42 200 ML Acetazolamide 500 mg Q12HR PO 02/19/25 22:00 02/21/25 10:01 02/20/25 21:43 500 MG Furosemide 40 mg BIDD IV 02/20/25 18:00 02/20/25 16:42 40 MG Methadone HCl 10 mg Q8HR PO 02/20/25 14:00 Clonazepam 0.5 mg Q12HP PRN PO 02/20/25 13:00 Laboratory Results Laboratory Tests 02/20/25 02:41 Chemistry Test 02/20/25 02:41 Albumin 2.7 g/dL (3.2-4.8) L Calcium Level 8.1 mg/dL (8.7-10.4) L Total Protein 5.2 g/dL (5.7-8.2) L LFT Test 02/20/25 02:41 Alanine Aminotransferase (ALT) 46 U/L (7-40) H Alkaline Phosphatase 77 U/L (46-116) Aspartate Amino Transferase (AST) 37 U/L (13-40) Total Bilirubin 1.3 mg/dL (0.2-1.0) H Urinalysis Test 02/14/25 11:30 02/19/25 13:50 Urine Protein/Creatinine Ratio 0.26 Urine Total Protein < 6.0 mg/dL (1-14) Urine Osmolality 587 mOsm/kg Urine Creatinine 76.95 mg/dL (30.0-125.0) Urine Sodium 79 mmol/L (40-220) Blood Gas Results Test 02/20/25 07:22 Arterial Blood pH 7.438 (7.350-7.450) FiO2 % 30.0 Microbiology Microbiology Date/Time Source Procedure Growth Status 02/13/25 08:15 Nose MRSA Screen - Final Complete 02/11/25 19:38 Blood Blood Culture - Final NO GROWTH AFTER 5 DAYS OF INCUBATION. Complete Assessment/Plan Assessment/Plan Impression: Acute hypoxemic respiratory failure On mechanical ventilator Pleural effusion Atelectasis S/p cardiac arrest Cardiomyopathy Congestive heart failure Obesity Events: Remains on vent support On AC mode; RR 18, VT 500, PEEP 6, FiO2 30% Patient was re-sedated Precedex drip OK for agitation On Seroquel. Fentanyl drip for analgesia Pressors for hemodynamic support On Levophed 12 mcg/min Titrate to keep mean arterial pressure greater than 65 mmHg. Off dopamine. Nephrology recs appreciated. Tolerated CPAP yesterday for 2 hours. [place] frothy secretions via ET tube. Tube feeds for nutritional support Continue antibiotics Nephrology recs appreciated Na of 150 - started IV fluids at 150 ml/hr. Monitor sodium Diurese to euvolemia Monitor renal function Monitor electrolytes. Supplement as necessary. Potassium supplementation Recommend taper sedation SBT/SHARON in the AM. Abdomen x-ray shows no e/o bowel obstruction. Labs and imaging reviewed. Rest of plan as noted below. Plan: s/p intubation on mechanical ventilator. On AC mode; RR 18, VT 500, PEEP 6, FiO2 30% Titrate FIO2 to keep O2 saturation above 90%. VAP bundle. Daily ABG and CXR while intubated Patient is s/p right thoracentesis. Continue bronchodilators. Continue antibiotics. Follow up cultures. Monitor WBC count Pressors as necessary for hemodynamic support Titrate to keep mean arterial pressure greater than 65 mmHg. Echo report reviewed; EF approximately 20% Cardiology recs appreciated. On Protonix, Sandostatin Monitor hemoglobin Tube feeds for nutritional support Follow up GI recs Diurese with Lasix Monitor renal function Monitor electrolytes. Supplement as necessary. Monitor ins and outs. Maintain euvolemia. GI prophylaxis -Protonix. DVT prophylaxis - Lovenox. Prognosis: Poor given patient's multiple co-morbidities. Condition: Critical Rest of plan per hospitalist and other consultants. A total of 35 minutes of critical care time was spent reviewing the patient record, examining the patient, making a diagnostic and therapeutic plan, discussing this plan with the medical personnel, following up on diagnostic studies and following the patient for clinical stability excluding any and all procedures. At least 50% of this time was spent in direct, [id number] contact. Thank you, Dr. Blas, for allowing me to participate in this patient's care. Further recommendations will depend on the patient's clinical course. Please do not hesitate to contact me if you have any questions or concerns. This medical document was created using an electronic medical record system with [employer] dictation system. Although these documentations are being carefully reviewed, there may still be some phonetic and typographical changes. The errors are purely typographical, due to imperfection on the software program, and do not reflect any compromise in the patient's medical care. Plan discussed with: Other (LEIGHTON Garsia) My Orders Orders - DOLORES VELAZQUEZ MD Procedure Category Date Status Time Ventilator Orders RT 02/20/25 Transmitted 05:38 Respiratory Misc. RT 02/20/25 Transmitted Order 06:10 Abg W/ Co-Ox RT 02/20/25 Logged 06:00 Visit Coding Pulmonary Billing Provider: DOLORES VELAZQUEZ MD Date of Service if different f: Feb 20, 2025 Common Visit Codes: [id number] INP/OBS CARE(HIGH), [id number] CARE 30-74 MIN DOLORES VELAZQUEZ MD Feb 20, 2025 23:14
[2025-02-21] VITALS (87 sets, daily range): BP systolic 92–111; BP diastolic 53–79; PULSE 54–89; RESP 14–25; TEMP 97.9–98.4; O2SAT 96–100
--- NOTE | 2025-02-21 03:39 | DVH ---
CHEST RADIOGRAPH Indication: intubated Technique: Single frontal view of the chest was obtained COMPARISON: XY CHEST PORTABLE on DOS: 02/20/25, XY CHEST PORTABLE on DOS: 02/19/25, XY CHEST PORTABLE on DOS: 02/18/25, XY CHEST PORTABLE on DOS: 02/18/25, XY CHEST PORTABLE on DOS: 02/14/25 FINDINGS: Lines and Tubes: Interval advancement of endotracheal tube such that the tip now projects approximately 4.0 cm above the level of the veronica. Remaining lines and tubes unchanged. Lungs: Moderate diffuse increased prominence of the pulmonary vasculature and small bilateral pleural effusions. No pneumothorax. Cardiomediastinal contours: Cardiomegaly. Bones: Unremarkable IMPRESSION: 1. Interval advancement of endotracheal tube such that the tip now projects approximately 4.0 cm above the level of the veronica. Remaining lines and tubes unchanged. 2. Cardiomegaly, pulmonary vascular congestion and bilateral pleural effusions.
[2025-02-21 04:42] LABS: Hematocrit 42.9 % (41.0-53.0); Hemoglobin 14.2 g/dL (13.5-17.5); Mean Corpuscular Hemoglobin 30.9 pg (28.0-32.0); Mean Corpuscular Volume 93.2 fL (80.0-100.0); Nucleated Red Blood Cells % 0.1 %
[2025-02-21 04:55] LABS: Alkaline Phosphatase 90 U/L (46-116); Anion Gap 8 (5-15); BUN/Creatinine Ratio 23.6 (10.0-20.0); Blood Urea Nitrogen 17 mg/dL (9-23); Chloride 101 mmol/L (98-107); Glucose 97 mg/dL (74-106); Magnesium 2.1 mg/dL (1.6-2.6); Potassium 3.6 mmol/L (3.5-5.1); Sodium 141 mmol/L (136-145); Total Protein 5.8 g/dL (5.7-8.2)
[2025-02-21 05:02] LABS: Alanine Aminotransferase 45 U/L (7-40); Albumin 2.9 g/dL (3.2-4.8); Bilirubin, Total 1.8 mg/dL (0.2-1.0); Calcium 8.2 mg/dL (8.7-10.4); Carbon Dioxide 32 mmol/L (20-31)
--- NOTE | 2025-02-21 07:07 | DVHPN2 ---
Progress Note - Dictate Date Seen: Feb 21, 2025 Medical Necessity Reason Pt with a Central, PICC or Fol: Yes The following are medically ne: Central Line, Aguilar Catheter Subjective Patient resting comfortably this morning vital signs Vital Sign Date Time Temp Pulse Resp B/P (MAP) Pulse Ox O2 Delivery O2 Flow Rate FiO2 02/21/25 05:53 65 18 110/73 (85) 97 30 02/21/25 04:00 Mechanical Ventilator+ 02/20/25 23:45 99.0 99.0 Total Intake and Output 02/20/25 02/20/25 02/21/25 14:59 22:59 06:59 Intake Total 1151.101 ml 638.500 ml Output Total 550 ml Balance 1151.101 ml 88.500 ml medications Current Medications Medications Dose Ordered Sig/Geraldo Route Start Time Stop Time Status Last Admin Dose Admin Albuterol 2.5 mg Q4HPRN PRN NEB 02/11/25 22:15 02/15/25 06:13 2.5 MG Ipratropium [place] 0.5 mg Q4HPRN PRN NEB 02/11/25 22:15 02/15/25 06:13 0.5 MG Diagnostic Test (Pha) 1 strip ACHS 02/12/25 07:00 02/21/25 06:16 1 STRIP Insulin Human Regular ACHS SC 02/12/25 07:00 02/20/25 22:01 2 UNITS Dextrose 50 ml UD PRN IV 02/11/25 22:15 Sodium Chloride 10 ml Q8HR IV 02/12/25 06:00 02/21/25 05:46 10 ML Acetaminophen 650 mg Q6HP PRN PO 02/11/25 22:15 Tamsulosin HCl 0.4 mg QPM PO 02/12/25 18:00 02/19/25 18:05 0.4 MG Aspirin 81 mg DAILY PO 02/12/25 10:00 02/20/25 09:35 81 MG Nicotine 1 patch DAILY TD 02/13/25 10:00 02/19/25 10:39 1 PATCH Norepinephrine Bitartrate 32 mg/ Sodium Chloride 250 ml @ 0.938 mls/ hr Q24H IV 02/13/25 08:45 02/20/25 09:11 0.938 MLS/HR Vancomycin HCl 0 ml @ 0 mls/hr PER PHARMACY IV 02/13/25 12:00 Midazolam HCl 100 ml @ 1 mls/hr Q24H IV 02/13/25 14:30 02/13/25 14:42 1 MLS/HR Fentanyl Citrate 250 ml @ 2.5 mls/hr Q24H IV 02/13/25 14:45 02/20/25 07:45 2.5 MLS/HR Enoxaparin Sodium 40 mg DAILY SC 02/15/25 10:00 02/17/25 09:46 40 MG Octreotide Acetate 100 mcg TID SUBCUT 02/14/25 14:00 02/21/25 05:48 100 MCG Enteral Nutritional Formula 1,000 ml 30ML/HR GT 02/14/25 12:45 02/14/25 17:59 1,000 ML Sennosides 8.6 mg HS PO 02/14/25 22:00 02/20/25 21:43 8.6 MG Quetiapine Fumarate 25 mg BID PO 02/15/25 10:00 02/20/25 22:15 25 MG Meropenem 50 ml @ 17 mls/hr Q8HR IV 02/15/25 14:00 02/20/25 21:42 17 MLS/HR Pantoprazole Sodium 40 mg DAILY IV 02/17/25 10:00 02/20/25 09:35 40 MG Vancomycin HCl 350 ml @ 200 mls/hr DAILY IV 02/17/25 10:00 02/20/25 10:17 200 MLS/HR Lactulose 30 ml BID PO 02/17/25 22:00 02/20/25 21:42 30 ML Purified Water 200 ml Q4HR GT 02/19/25 14:00 02/21/25 02:00 200 ML Acetazolamide 500 mg Q12HR PO 02/19/25 22:00 02/21/25 10:01 02/20/25 21:43 500 MG Furosemide 40 mg BIDD IV 02/20/25 18:00 02/21/25 05:46 40 MG Methadone HCl 10 mg Q8HR PO 02/20/25 14:00 Clonazepam 0.5 mg Q12HP PRN PO 02/20/25 13:00 objective Gen: nad heent: nc/at, mmm lungs: cta anteriorly cvs: no rub abd: soft, bowel sounds audible ext: no edema laboratory and microbiology Laboratory Tests 02/21/25 04:05 Test 02/21/25 04:05 Range/Units Serum Glucose 97 74-106 mg/dL Assessment/Plan Problem List/Assessment/Plan ALEXIS superimposed Chronic Kidney Disease secondary hemodynamic mediated, FeNa > 2% Acute respiratory failure, patient intubated on ventilator Septic shock Pneumonia secondary to Gram-positive Gram-negative bacteria HFrEF with a LVEF 20% End-stage dilated cardiomyopathy Transaminitis Polysubstance use Liver cirrhosis Hypokalemia Metabolic alkalosis Hyponatremia due to dehydration Polyuria rule out diabetes insipidus Plan/recommendations: - acute kidney injury resolved - metabolic parameters acceptable - no new recommendations from Nephrology perspective, we will sign off his case. - please reconsult as needed. Thank you. Dietary Evaluation Review Comments: [facility] Cardiac diet, texture as tolearated when medically feasible nicotine cessation counseling Follow up with updated lab values Expected Outcomes/Goals: Improved nurition related lab values, free from nicotine Plan discussed with: Other JORGE TIERNEY MD Feb 21, 2025 07:07
[2025-02-21 07:22] LABS: Base Excess 5.5 mmol/L (-2.0-3.0)
--- NOTE | 2025-02-21 12:37 | DVHPN2 ---
Assessment/Plan Assessment/Plan ICU note 64 M with HTN, HFrEF 20%, DM, ascites, meth use admitted for SOB, later was found in respiratory distress, intubated and had PEA arrest, ROSC in 4 minutes. 02/14 s/p thora, 2 L out. switched to lasix drip. start TF. POCUS done, minimal tapable pocket in abdomen. wound culture with prelim growth. wound care 02/15 wound culture back, changed abx to vanc and [place], starting oral meds for weaning, patient previously agitated, to decrease prevent self extubation. lasix drip switched to 60 BID. SAT SBT tomorrow. 02/16 hold diuresis today, POCUS with improving IVC, off sedation, not waking up still. 02/17 adding diamox, metabolic alkalosis, decrease RR, holding methadone and klonazepam, off sedation, opening eyes to name, not following command, c/w SAT SBT. 02/18 off sedation and calm 02/19 continues to remain intubated and off sedation 02/20 agitated, restarting methadone and clonazepam. will d/w fam regarding trach if he continues to be difficult to sedate. positive balance, readding lasix, discontinueing fluid. 02/21 POCUS done, IVC >2cm with no excursion, severely reduced EF. net positive the past 2 days, doubling lasix dose. back on pressor. follows commands once. once stable will get CT angio to see if he will need intervention. podiatry consult physical exam intubated on mechanical ventilator mildly sedated obese opening eyes to name follows commands once cannot appreciate JVD mechanical breath sounds S1 S2 systolic murmur abdomen distended b/l LE edema w/ chronic venous wounds R foot with multiple gangrene dry and wet vent ac/vc 550 16 30% PEEP 6 7.302/50/77 drips levophed off fentanyl off labs reviewed acetinobacter, pseudomonas, e faecalis, MRSA in wound cultrue imaging cxr RLL opacity echo LVEF 20%, DCM, MR assessment and plan s/p PEA arrest ROSC 4 mins cardiogenic shock acute on chronic hypoxic RF acute on chronic systolic HF small R PLEF COPD with exacerbation PNA gp vs gn HFrEF 20% DCM transaminitis cirrhosis? ascites? ALEXIS likely VMN lactic acidosis meth use leukocytosis type 2 [place] demand ischemia DM? chronic venous stasis wound with multiple bact L testicular mass? foot gangrene ICU SAT SBT titrate levophed to maintain MAP >60 c/w mechanical vent increase diuresis to goal net neg 1L daily c/w sedation, maintain RAAS -2, added methadone, klonopin, seroquel trend lactate, cr, LFT c/w vanc , zosyn switched to [place] avoid fever VAP bundle bronchodilators hold GDMT until off pressors send A1C, lipid, tsh wound care daily SAT SBT podiatry consult CTA runoff once stable keep K 4 Ph 3 Mg 2 Diet jevity to goal DVT PPX lovenox GI PPX protonix Lines RIJ TLC NGT jaffe Full code condition critical prognosis poor critical care time 80 minutes Plan discussed with: Other My Orders Orders - SYEDA VILLALOBOS MD Procedure Category Date Status Time Methadone Hcl Tablet PHA 02/20/25 In Process (Methadone Hcl Tabl 14:00 Clonazepam Tablet PHA 02/20/25 In Process (Klonopin Tablet) 13:00 Chest Portable XY 02/21/25 Resulted 04:00 * Make Up Girl CONS 02/21/25 Transmitted Consult 08:00 Complete Blood Count LAB 02/22/25 Verified 04:00 Comprehensive LAB 02/22/25 Verified Metabolic Panel 04:00 Phosphorus LAB 02/22/25 Verified 04:00 Magnesium LAB 02/22/25 Verified 04:00 Furosemide Injection PHA 02/21/25 In Process (Lasix Injection) 18:00 Ct Angio Abd Aorta W CT 02/22/25 Logged Run Off 09:00 Date of Service: Feb 21, 2025 Billing Provider: SYEDA VILLALOBOS MD Common Visit Codes: [id number] CARE 30-74 MIN, [id number] CARE-EACH +30MIN SYEDA VILLALOBOS MD Feb 21, 2025 12:37
--- NOTE | 2025-02-21 12:56 | DVHPN2 ---
Progress Note Date Seen: Feb 21, 2025 Resident Creating Document: WILLIAMS DANG RESIDENT Medical Necessity Reason Pt with a Central, PICC or Fol: Yes The following are medically ne: Central Line, Aguilar Catheter Subjective Review of Systems Bowel movement yesterday, abdomen soft nontender Objective vital signs Vital Sign Date Time Temp Pulse Resp B/P (MAP) Pulse Ox O2 Delivery O2 Flow Rate FiO2 02/21/25 12:30 60 18 100/61 (74) 98 02/21/25 12:00 30 02/21/25 12:00 Mechanical Ventilator+ 02/21/25 12:00 98.4 98.4 Total Intake and Output 02/20/25 02/20/25 02/21/25 15:00 23:00 07:00 Intake Total 1014.536 ml 615.875 ml 767 ml Output Total 550 ml 1300 ml Balance 1014.536 ml 65.875 ml -533 ml medications Current Medications Medications Dose Ordered Sig/Geraldo Route Start Time Stop Time Status Last Admin Dose Admin Albuterol 2.5 mg Q4HPRN PRN NEB 02/11/25 22:15 02/15/25 06:13 2.5 MG Ipratropium [place] 0.5 mg Q4HPRN PRN NEB 02/11/25 22:15 02/15/25 06:13 0.5 MG Diagnostic Test (Pha) 1 strip ACHS 02/12/25 07:00 02/21/25 11:47 1 STRIP Insulin Human Regular ACHS SC 02/12/25 07:00 02/20/25 22:01 2 UNITS Dextrose 50 ml UD PRN IV 02/11/25 22:15 Sodium Chloride 10 ml Q8HR IV 02/12/25 06:00 02/21/25 05:46 10 ML Acetaminophen 650 mg Q6HP PRN PO 02/11/25 22:15 Tamsulosin HCl 0.4 mg QPM PO 02/12/25 18:00 02/19/25 18:05 0.4 MG Aspirin 81 mg DAILY PO 02/12/25 10:00 02/21/25 10:32 81 MG Nicotine 1 patch DAILY TD 02/13/25 10:00 02/21/25 10:33 1 PATCH Norepinephrine Bitartrate 32 mg/ Sodium Chloride 250 ml @ 0.938 mls/ hr Q24H IV 02/13/25 08:45 02/20/25 09:11 0.938 MLS/HR Vancomycin HCl 0 ml @ 0 mls/hr PER PHARMACY IV 02/13/25 12:00 Midazolam HCl 100 ml @ 1 mls/hr Q24H IV 02/13/25 14:30 02/13/25 14:42 1 MLS/HR Fentanyl Citrate 250 ml @ 2.5 mls/hr Q24H IV 02/13/25 14:45 02/20/25 07:45 2.5 MLS/HR Enoxaparin Sodium 40 mg DAILY SC 02/15/25 10:00 02/21/25 10:33 40 MG Octreotide Acetate 100 mcg TID SUBCUT 02/14/25 14:00 02/21/25 05:48 100 MCG Enteral Nutritional Formula 1,000 ml 30ML/HR GT 02/14/25 12:45 02/14/25 17:59 1,000 ML Sennosides 8.6 mg HS PO 02/14/25 22:00 02/20/25 21:43 8.6 MG Quetiapine Fumarate 25 mg BID PO 02/15/25 10:00 02/21/25 10:32 25 MG Meropenem 50 ml @ 17 mls/hr Q8HR IV 02/15/25 14:00 02/21/25 06:00 17 MLS/HR Pantoprazole Sodium 40 mg DAILY IV 02/17/25 10:00 02/21/25 10:33 40 MG Vancomycin HCl 350 ml @ 200 mls/hr DAILY IV 02/17/25 10:00 02/21/25 10:31 200 MLS/HR Lactulose 30 ml BID PO 02/17/25 22:00 02/21/25 10:33 30 ML Purified Water 200 ml Q4HR GT 02/19/25 14:00 02/21/25 10:00 200 ML Methadone HCl 10 mg Q8HR PO 02/20/25 14:00 Clonazepam 0.5 mg Q12HP PRN PO 02/20/25 13:00 Furosemide 80 mg BIDD IV 02/21/25 18:00 Examination Patient lying in bed, on mechanical ventilation General: Overweight, afebrile, palor, mucosae are moist Cardiovascular: Regular S1 and S2. No murmurs, gallops or rubs. No JVD elevation. Pedal edema Respiratory: Decreased bilateral air entry on auscultation, mechanically ventilated Abdomen: Soft, nontender, nondistended, normoactive bowel sounds, no rebound tenderness, no organomegaly, no masses. Purulent vesicles on lower abdomen. Penile swelling. Small clots and Aguilar noted. Bilateral lower extremity, cyanosed, bluish, 3+ pedal edema, minimal pulses, cold laboratory and microbiology Laboratory Tests 02/21/25 04:05 Test 02/21/25 04:05 Range/Units Serum Glucose 97 74-106 mg/dL Microbiology Date/Time Source Procedure Growth Status 02/13/25 08:15 Nose MRSA Screen - Final Complete 02/11/25 19:38 Blood Blood Culture - Final NO GROWTH AFTER 5 DAYS OF INCUBATION. Complete Labs and/or images reviewed: Labs reviewed by me, Image(s) reviewed by me Problem List/Assessment/Plan Problem List/Assessment/Plan Cirrhosis Acute hypoxic respiratory failure status post intubation Systolic Heart failure with reduced ejection fraction exacerbation NSTEMI Hypertension Hyperkalemia Rule out STI Acute kidney injury Peripheral arterial disease Methamphetamine use dependence Liver ultrasound shows Heterogeneous appearing liver suggesting chronic liver disease. Plan: Recommendation: Bilirubin downtrending, LFTs downtrending. H&H stable. Monitor CMP in a.m.. Continue lactulose 30 mL b.i.d. and senna. Continue conservative management. CPAP trial as tolerated Hepatitis panel negative Continue tube feedings HIV, syphilis negative. Gonorrhea and chlamydia negative Protonix 40 mg daily Plan discussed with the primary RN in which all questions have been answered Case discussed with Dr. Urena Plan discussed with: Other (Nurse) Dietary Evaluation Review Comments: CCHO-60 Cardiac diet, texture as tolearated when medically feasible nicotine cessation counseling Follow up with updated lab values Expected Outcomes/Goals: Improved nurition related lab values, free from nicotine WILLIAMS DANG RESIDENT Feb 21, 2025 12:56
[2025-02-21] MEDS: FUROSEMIDE 100 MG/10ML VIAL IV SCH (16:45)
[2025-02-21] MEDS: LIDOCAINE 1% (LOCAL ANESTH.) PF 5ml SDV ID ONE (18:18)
--- NOTE | 2025-02-21 18:41 | DVH ---
BILATERAL UPPER EXTREMITY VENOUS DUPLEX REASON FOR EXAMINATION: Right upper extremity pain and swelling. COMPARISON: US BILAT LOWER DVT on DOS: 02/14/25 TECHNIQUE: Using real-time freeze-frame technique with a high-frequency transducer, multiple longitudinal and transverse sections were obtained. Simultaneous color flow and spectral Doppler imaging was performed. FINDINGS: RIGHT: Deep veins Internal jugular vein: Not visualized due to the right neck catheter and bandaging. Subclavian vein: Expected Doppler flow. Axillary vein: Compressible. No thrombus identified. Expected Doppler flow. Brachial vein: Compressible. No thrombus identified. Expected Doppler flow. Radial vein: Compressible. No thrombus identified. Expected Doppler flow. Ulnar vein: Compressible. No thrombus identified. Expected Doppler flow. Superficial veins Cephalic vein: Compressible. No thrombus identified. Expected Doppler flow. Basilic vein: Occluded LEFT: Deep veins Internal jugular vein: Compressible. No thrombus identified. Expected Doppler flow. Subclavian vein: Expected Doppler flow. Axillary vein: Compressible. No thrombus identified. Expected Doppler flow. There is a catheter within the vein. Brachial vein: Compressible. No thrombus identified. Expected Doppler flow. Radial vein: Compressible. No thrombus identified. Expected Doppler flow. Ulnar vein: Compressible. No thrombus identified. Expected Doppler flow. Superficial veins Cephalic vein: Occluded Basilic vein: Compressible. No thrombus identified. Expected Doppler flow. There is a catheter within the vein. IMPRESSION: No evidence of deep venous thrombosis. Note that the right internal jugular vein was not visualized due to the right neck catheter and bandaging. The right basilic vein is occluded. Correlate clinically for superficial thrombophlebitis. The left cephalic vein is occluded. Correlate clinically for superficial thrombophlebitis. There is a catheter within the left basilic vein which appears to terminate in the left axillary vein without evidence of adherent thrombus.
[2025-02-21] MEDS: SODIUM CHLOR 0.9% PF (SALINE LOCK) 10ML VIAL/SYR IV SCH (22:53)
--- NOTE | 2025-02-21 23:51 | DVHPN2 ---
Subjective DOS: 02/21/2025 Patient seen and examined at bedside. Intubated on mechanical ventilator. Overnight events reviewed. Reviewed: Care Plan, H&P, Labs, Medications, Previous Orders, Radiology Changes from previous H/P or p: No Changes Eyes: No Pain, No Vision change, No Conjunctivae inflammation, No Eyelid inflammation, No Other, No Redness ENT: No Ear pain, No Ear discharge, No Nose pain, No Nose discharge, No Nose congestion, No Mouth pain, No Mouth swelling, No Throat pain, No Throat swelling, No Other Cardiovascular: No Chest Pain, No Palpitations, No Orthopnea, No Paroxysmal Noc. Dyspnea, No Edema, No Lt Headedness, No Other Respiratory: No Cough, No Dry; Shortness of breath, SOB with excertion; No Wheezing, No Hemoptysis, No Pleuritic Pain, No Sputum; Other (SOB at rest) Gastrointestinal: No Nausea, No Vomiting; Abdominal Pain; No Diarrhea, No Constipation, No Melena, No Hematochezia; Other (Abdominal distention) Genitourinary: No Dysuria, No Frequency, No Incontinence, No Hematuria, No Retention, No Other Musculoskeletal: No other, No neck pain, No shoulder pain, No arm pain, No back pain, No hand pain, No leg pain, No foot pain Skin: No Rash, No Lesions, No Jaundice, No Bruising; Other (Lower extremity open wounds) Objective Vitals Vital Signs Date Time Temp Pulse Resp B/P (MAP) Pulse Ox O2 Delivery O2 Flow Rate FiO2 02/21/25 21:52 67 18 92/57 (69) 98 30 02/21/25 20:00 Mechanical Ventilator+ 02/21/25 16:00 97.9 97.9 Intake/Output Intake and Output 02/21/25 07:00 Intake Total 2402.099 ml Output Total 1850 ml Balance 552.099 ml Intake Oral 1065 ml IV Total 1087.099 ml Tube Feeding 250 ml Output Urine Total 1850 ml Exam Gen.: Patient lying in bed in medical ICU. intubated on mechanical ventilator. Head: Normocephalic, atraumatic. Eyes: PERRLA. Ears: Normal external anatomy. Throat: Endotracheal tube and orogastric tube in place. Neck: Supple, trachea midline. Chest: Transmitted breath sounds bilaterally. Decreased air entry bilaterally. No wheezing. Bibasilar crackles. Cardiovascular: Positive S1, positive S2. Regular rate and rhythm. Abdomen: Positive bowel sounds in all 4 quadrants. Soft, nontender, nondistended. : Aguilar in place. Normal external genitalia. Rectal: Deferred. Skin: Warm, dry. Intact. Extremities: 2+ radial pulses bilaterally. No lower extremity edema. Neuro: Off sedation General Appearance: Other (intubate, on vent, unable to examined.) HEENT: Atraumatic, PERRLA, EOMI, Mucous membr. moist/pink Neck: Supple Lungs: Clear to auscultation, Normal air movement Cardiovascular: Regular rate, Normal S1, Normal S2, No murmurs, Gallops, Rubs Abdomen: Normal bowel sounds, Soft, No tenderness Neuro: Other (intubate, on vent , unable to examined.) Medications Current Medications Medications Dose Ordered Sig/Geraldo Route Start Time Stop Time Status Last Admin Dose Admin Albuterol 2.5 mg Q4HPRN PRN NEB 02/11/25 22:15 02/15/25 06:13 2.5 MG Ipratropium [place] 0.5 mg Q4HPRN PRN NEB 02/11/25 22:15 02/15/25 06:13 0.5 MG Diagnostic Test (Pha) 1 strip ACHS 02/12/25 07:00 02/21/25 22:00 1 STRIP Insulin Human Regular ACHS SC 02/12/25 07:00 02/20/25 22:01 2 UNITS Dextrose 50 ml UD PRN IV 02/11/25 22:15 Acetaminophen 650 mg Q6HP PRN PO 02/11/25 22:15 Tamsulosin HCl 0.4 mg QPM PO 02/12/25 18:00 02/19/25 18:05 0.4 MG Aspirin 81 mg DAILY PO 02/12/25 10:00 02/21/25 10:32 81 MG Nicotine 1 patch DAILY TD 02/13/25 10:00 02/21/25 10:33 1 PATCH Norepinephrine Bitartrate 32 mg/ Sodium Chloride 250 ml @ 0.938 mls/ hr Q24H IV 02/13/25 08:45 02/20/25 09:11 0.938 MLS/HR Vancomycin HCl 0 ml @ 0 mls/hr PER PHARMACY IV 02/13/25 12:00 Midazolam HCl 100 ml @ 1 mls/hr Q24H IV 02/13/25 14:30 02/13/25 14:42 1 MLS/HR Fentanyl Citrate 250 ml @ 2.5 mls/hr Q24H IV 02/13/25 14:45 02/21/25 14:03 10 MLS/HR Enoxaparin Sodium 40 mg DAILY SC 02/15/25 10:00 02/21/25 10:33 40 MG Octreotide Acetate 100 mcg TID SUBCUT 02/14/25 14:00 02/21/25 22:54 100 MCG Enteral Nutritional Formula 1,000 ml 30ML/HR GT 02/14/25 12:45 02/14/25 17:59 1,000 ML Sennosides 8.6 mg HS PO 02/14/25 22:00 02/21/25 22:54 8.6 MG Quetiapine Fumarate 25 mg BID PO 02/15/25 10:00 02/21/25 22:00 25 MG Meropenem 50 ml @ 17 mls/hr Q8HR IV 02/15/25 14:00 02/21/25 22:53 17 MLS/HR Pantoprazole Sodium 40 mg DAILY IV 02/17/25 10:00 02/21/25 10:33 40 MG Vancomycin HCl 350 ml @ 200 mls/hr DAILY IV 02/17/25 10:00 02/21/25 10:31 200 MLS/HR Lactulose 30 ml BID PO 02/17/25 22:00 02/21/25 22:53 30 ML Purified Water 200 ml Q4HR GT 02/19/25 14:00 02/21/25 22:00 200 ML Methadone HCl 10 mg Q8HR PO 02/20/25 14:00 02/21/25 22:55 10 MG Clonazepam 0.5 mg Q12HP PRN PO 02/20/25 13:00 Furosemide 80 mg BIDD IV 02/21/25 18:00 02/21/25 16:45 80 MG Sodium Chloride 10 ml QSHIFT@10,22 IV 02/21/25 22:00 02/21/25 22:53 10 ML Laboratory Results Laboratory Tests 02/21/25 04:05 Chemistry Test 02/21/25 04:05 Albumin 2.9 g/dL (3.2-4.8) L Calcium Level 8.2 mg/dL (8.7-10.4) L Magnesium Level 2.1 mg/dL (1.6-2.6) Phosphorus Level 2.7 mg/dL (2.4-5.1) Total Protein 5.8 g/dL (5.7-8.2) LFT Test 02/21/25 04:05 Alanine Aminotransferase (ALT) 45 U/L (7-40) H Alkaline Phosphatase 90 U/L (46-116) Aspartate Amino Transferase (AST) 39 U/L (13-40) Total Bilirubin 1.8 mg/dL (0.2-1.0) H Urinalysis Test 02/14/25 11:30 02/19/25 13:50 Urine Protein/Creatinine Ratio 0.26 Urine Total Protein < 6.0 mg/dL (1-14) Urine Osmolality 587 mOsm/kg Urine Creatinine 76.95 mg/dL (30.0-125.0) Urine Sodium 79 mmol/L (40-220) Blood Gas Results Test 02/21/25 07:08 Arterial Blood pH 7.409 (7.350-7.450) FiO2 % 30.0 Microbiology Microbiology Date/Time Source Procedure Growth Status 02/13/25 08:15 Nose MRSA Screen - Final Complete 02/11/25 19:38 Blood Blood Culture - Final NO GROWTH AFTER 5 DAYS OF INCUBATION. Complete Assessment/Plan Assessment/Plan Impression: Acute hypoxemic respiratory failure On mechanical ventilator Pleural effusion Atelectasis S/p cardiac arrest Cardiomyopathy Congestive heart failure Obesity Events: Remains on vent support On AC mode; RR 18, VT 500, PEEP 6, FiO2 30% Off Precedex drip On Seroquel. Fentanyl drip for analgesia Pressors for hemodynamic support On Levophed 10 mcg/min Titrate to keep mean arterial pressure greater than 65 mmHg. Off dopamine. Nephrology recs appreciated. [place] frothy secretions via ET tube. Tube feeds for nutritional support Continue antibiotics Wound care. Consult for PICC line - PICC line is deemed medically necessary for administration of pressors. Nephrology recs appreciated IV fluids at 150 ml/hr d/t hypernatremia. Monitor sodium Diurese to euvolemia Monitor renal function Monitor electrolytes. Supplement as necessary. Potassium supplementation Abdomen x-ray shows no e/o bowel obstruction. Labs and imaging reviewed. Rest of plan as noted below. Plan: s/p intubation on mechanical ventilator. On AC mode; RR 18, VT 500, PEEP 6, FiO2 30% Titrate FIO2 to keep O2 saturation above 90%. VAP bundle. Daily ABG and CXR while intubated Patient is s/p right thoracentesis. Continue bronchodilators. Continue antibiotics. Follow up cultures. Monitor WBC count Pressors as necessary for hemodynamic support Titrate to keep mean arterial pressure greater than 65 mmHg. Echo report reviewed; EF approximately 20% Cardiology recs appreciated. On Protonix, Sandostatin Monitor hemoglobin Tube feeds for nutritional support Follow up GI recs Diurese with Lasix Monitor renal function Monitor electrolytes. Supplement as necessary. Monitor ins and outs. Maintain euvolemia. GI prophylaxis -Protonix. DVT prophylaxis - Lovenox. Prognosis: Poor given patient's multiple co-morbidities. Condition: Critical Rest of plan per hospitalist and other consultants. A total of 35 minutes of critical care time was spent reviewing the patient record, examining the patient, making a diagnostic and therapeutic plan, discussing this plan with the medical personnel, following up on diagnostic studies and following the patient for clinical stability excluding any and all procedures. At least 50% of this time was spent in direct, [id number] contact. Thank you, Dr. Blas, for allowing me to participate in this patient's care. Further recommendations will depend on the patient's clinical course. Please do not hesitate to contact me if you have any questions or concerns. This medical document was created using an electronic medical record system with [employer] dictation system. Although these documentations are being carefully reviewed, there may still be some phonetic and typographical changes. The errors are purely typographical, due to imperfection on the software program, and do not reflect any compromise in the patient's medical care. Plan discussed with: Other (LEIGHTON Farah) My Orders Orders - DOLORES VELAZQUEZ MD Procedure Category Date Status Time Abg W/ Co-Ox RT 02/21/25 Logged 06:00 * Picc Line Consult CONS 02/21/25 Transmitted 08:58 Nursing Protocol Picc ANTONY 02/21/25 In Process 18:06 Change Dressing Prn ANTONY 02/21/25 In Process 18:06 Sodium Chloride Lock PHA 02/21/25 In Process (Saline Lock Ns) 22:00 Do Not Use Picc For ANTONY 02/21/25 In Process Blood Cult 18:06 May Draw Blood From [facility] 02/21/25 In Process Picc 18:06 Ok To Use Picc [facility] 02/21/25 In Process 18:06 Change Picc Dressing [facility] 02/21/25 In Process Q7 Days 18:06 Chest Portable XY 02/22/25 Logged 04:00 Visit Coding Pulmonary Billing Provider: DOLORES VELAZQUEZ MD Date of Service if different f: Feb 21, 2025 Common Visit Codes: [id number] INP/OBS CARE(HIGH), [id number] CARE 30-74 MIN DOLORES VELAZQUEZ MD Feb 21, 2025 23:51
[2025-02-22] VITALS (83 sets, daily range): BP systolic 83–123; BP diastolic 42–78; PULSE 55–114; RESP 12–19; TEMP 97–98.4; O2SAT 94–100
--- NOTE | 2025-02-22 04:50 | DVH ---
CHEST RADIOGRAPH INDICATION: INTUBATED TECHNIQUE: Single frontal view of the chest was obtained COMPARISON: XY CHEST PORTABLE on DOS: 02/21/25, XY CHEST PORTABLE on DOS: 02/20/25, XY CHEST PORTABLE on DOS: 02/19/25, XY CHEST PORTABLE on DOS: 02/18/25, XY CHEST PORTABLE on DOS: 02/18/25 FINDINGS: Lines and Tubes: Slight interval advancement of endotracheal tube such that the tip now projects 1.8 cm above the level of the veronica. Remaining lines and tubes unchanged. Lungs: Stable appearing diffuse Increased prominence of the pulmonary vasculature and bilateral pleural effusions. No pneumothorax. Cardiomediastinal contours: Cardiomegaly. Bones: Unremarkable IMPRESSION: 1. Slight interval advancement of endotracheal tube such that the tip now projects 1.8 cm above the level of the veronica. Remaining Lines and tubes unchanged. 2. Stable cardiomegaly, pulmonary vascular congestion and bilateral pleural effusions.
[2025-02-22 05:06] LABS: Hematocrit 39.8 % (41.0-53.0); Hemoglobin 13.1 g/dL (13.5-17.5); Mean Corpuscular Hemoglobin 30.7 pg (28.0-32.0); Mean Corpuscular Volume 93.3 fL (80.0-100.0); Nucleated Red Blood Cells % 0.0 %
[2025-02-22 05:15] LABS: Alanine Aminotransferase 38 U/L (7-40); Alkaline Phosphatase 84 U/L (46-116); Anion Gap 4 (5-15); BUN/Creatinine Ratio 24.7 (10.0-20.0); Blood Urea Nitrogen 21 mg/dL (9-23); Chloride 103 mmol/L (98-107); Magnesium 2.0 mg/dL (1.6-2.6); Sodium 141 mmol/L (136-145)
[2025-02-22 05:30] LABS: Albumin 2.7 g/dL (3.2-4.8); Bilirubin, Total 1.7 mg/dL (0.2-1.0); Calcium 8.1 mg/dL (8.7-10.4); Carbon Dioxide 34 mmol/L (20-31); Glucose 122 mg/dL (74-106); Potassium 3.3 mmol/L (3.5-5.1); Total Protein 5.3 g/dL (5.7-8.2)
[2025-02-22 06:18] LABS: Base Excess 6.3 mmol/L (-2.0-3.0)
[2025-02-22] MEDS: POTASSIUM CHL 20MEQ/100ML 100 ML IV SCH (08:22)
[2025-02-22] MEDS: FUROSEMIDE 100 MG/10ML VIAL IV SCH (08:27)
[2025-02-22] MEDS: MAGNESIUM SULFATE 1GM/100ML 100 ML IV SCH (11:49)
--- NOTE | 2025-02-22 12:16 | DVHPN2 ---
Assessment/Plan Assessment/Plan ICU note 64 M with HTN, HFrEF 20%, DM, ascites, meth use admitted for SOB, later was found in respiratory distress, intubated and had PEA arrest, ROSC in 4 minutes. 02/14 s/p thora, 2 L out. switched to lasix drip. start TF. POCUS done, minimal tapable pocket in abdomen. wound culture with prelim growth. wound care 02/15 wound culture back, changed abx to vanc and layton, starting oral meds for weaning, patient previously agitated, to decrease prevent self extubation. lasix drip switched to 60 BID. SAT SBT tomorrow. 02/16 hold diuresis today, POCUS with improving IVC, off sedation, not waking up still. 02/17 adding diamox, metabolic alkalosis, decrease RR, holding methadone and klonazepam, off sedation, opening eyes to name, not following command, c/w SAT SBT. 02/18 off sedation and calm 02/19 continues to remain intubated and off sedation 02/20 agitated, restarting methadone and clonazepam. will d/w fam regarding trach if he continues to be difficult to sedate. positive balance, readding lasix, discontinueing fluid. 02/21 POCUS done, IVC >2cm with no excursion, severely reduced EF. net positive the past 2 days, doubling lasix dose. back on pressor. follows commands once. once stable will get CT angio to see if he will need intervention. podiatry consult 02/22 b/l UE superficial thrombus, no deep vein thrombus, dc tlc, continue to titrate off pressor, c/w diuresis. daily SAT SBT. i called family but went to . plan for extubation vs trach, possibly without full mental status if doing well during cpap physical exam intubated on mechanical ventilator mildly sedated obese opening eyes to name follows commands once cannot appreciate JVD mechanical breath sounds S1 S2 systolic murmur abdomen distended b/l LE edema w/ chronic venous wounds R foot with multiple gangrene dry and wet vent ac/vc 550 16 30% PEEP 6 7.302/50/77 drips levophed off fentanyl off labs reviewed acetinobacter, pseudomonas, e faecalis, MRSA in wound cultrue imaging cxr RLL opacity echo LVEF 20%, DCM, MR assessment and plan s/p PEA arrest ROSC 4 mins cardiogenic shock acute on chronic hypoxic RF acute on chronic systolic HF small R PLEF COPD with exacerbation PNA gp vs gn HFrEF 20% DCM transaminitis cirrhosis? ascites? ALEXIS likely VMN lactic acidosis meth use leukocytosis type 2 CT demand ischemia DM? chronic venous stasis wound with multiple bact L testicular mass? foot gangrene b/l UE superficial thrombosis ICU SAT SBT titrate levophed to maintain MAP >60 c/w mechanical vent increase diuresis to goal net neg 1L daily c/w sedation, maintain RAAS -2, added methadone, klonopin, seroquel trend lactate, cr, LFT c/w vanc , zosyn switched to lay[place] avoid fever VAP bundle bronchodilators hold GDMT until off pressors send A1C, lipid, tsh wound care daily SAT SBT podiatry consult CTA runoff once stable keep K 4 Ph 3 Mg 2 Diet jevity to goal DVT PPX lovenox GI PPX protonix Lines RIJ TLC NGT jaffe Full code condition critical prognosis poor critical care time 40 minutes Plan discussed with: Other My Orders Orders - SYEDA VILLALOBOS MD Procedure Category Date Status Time Bi Lat Upper Dvt US 02/21/25 Resulted 17:23 Furosemide Injection PHA 02/22/25 In Process (Lasix Injection) 08:00 Date of Service: Feb 22, 2025 Billing Provider: SYEDA VILLALOBOS MD Common Visit Codes: [id number] CARE 30-74 MIN SYEDA VILLALOBOS MD Feb 22, 2025 12:16
[2025-02-22] MEDS: MAGNESIUM SULFATE 1GM/100ML 100 ML IV ONE (13:27)
[2025-02-22] MEDS: NOREPINEPHRINE BITARTRATE 32 MG in SODIUM CHL 0.9% 218 ML IV SCH (15:37)
--- NOTE | 2025-02-22 16:59 | DVHPN2 ---
Progress Note Date Seen: Feb 22, 2025 Resident Creating Document: WILLIAMS DANG RESIDENT Medical Necessity Reason Pt with a Central, PICC or Fol: Yes The following are medically ne: Central Line, Aguilar Catheter Subjective Review of Systems No acute distress, BM yesterday, girlfriend at bedside Objective vital signs Vital Sign Date Time Temp Pulse Resp B/P (MAP) Pulse Ox O2 Delivery O2 Flow Rate FiO2 02/22/25 16:28 114 18 101/57 (72) 100 30 02/22/25 16:00 Mechanical Ventilator+ 02/22/25 12:00 98.4 98.4 Total Intake and Output 02/21/25 02/21/25 02/22/25 15:00 23:00 07:00 Intake Total 499.878 ml 1106.504 ml 942.130 ml Output Total 1625 ml 2000 ml Balance 499.878 ml -518.496 ml -1057.870 ml medications Current Medications Medications Dose Ordered Sig/Geraldo Route Start Time Stop Time Status Last Admin Dose Admin Albuterol 2.5 mg Q4HPRN PRN NEB 02/11/25 22:15 02/22/25 06:38 2.5 MG Ipratropium [place] 0.5 mg Q4HPRN PRN NEB 02/11/25 22:15 02/22/25 06:38 0.5 MG Diagnostic Test (Pha) 1 strip ACHS 02/12/25 07:00 02/22/25 11:33 1 STRIP Insulin Human Regular ACHS SC 02/12/25 07:00 02/22/25 06:19 2 UNITS Dextrose 50 ml UD PRN IV 02/11/25 22:15 Acetaminophen 650 mg Q6HP PRN PO 02/11/25 22:15 Tamsulosin HCl 0.4 mg QPM PO 02/12/25 18:00 02/19/25 18:05 0.4 MG Aspirin 81 mg DAILY PO 02/12/25 10:00 02/22/25 10:21 81 MG Nicotine 1 patch DAILY TD 02/13/25 10:00 02/22/25 10:20 1 PATCH Vancomycin HCl 0 ml @ 0 mls/hr PER PHARMACY IV 02/13/25 12:00 Midazolam HCl 100 ml @ 1 mls/hr Q24H IV 02/13/25 14:30 02/22/25 15:29 1 MLS/HR Fentanyl Citrate 250 ml @ 2.5 mls/hr Q24H IV 02/13/25 14:45 02/22/25 10:57 15 MLS/HR Enoxaparin Sodium 40 mg DAILY SC 02/15/25 10:00 02/22/25 10:16 40 MG Octreotide Acetate 100 mcg TID SUBCUT 02/14/25 14:00 02/22/25 13:33 100 MCG Enteral Nutritional Formula 1,000 ml 30ML/HR GT 02/14/25 12:45 02/22/25 06:39 1,000 ML Sennosides 8.6 mg HS PO 02/14/25 22:00 02/21/25 22:54 8.6 MG Quetiapine Fumarate 25 mg BID PO 02/15/25 10:00 02/22/25 10:16 25 MG Meropenem 50 ml @ 17 mls/hr Q8HR IV 02/15/25 14:00 02/22/25 13:32 17 MLS/HR Pantoprazole Sodium 40 mg DAILY IV 02/17/25 10:00 02/22/25 10:14 40 MG Vancomycin HCl 350 ml @ 200 mls/hr DAILY IV 02/17/25 10:00 02/22/25 10:38 200 MLS/HR Lactulose 30 ml BID PO 02/17/25 22:00 02/22/25 10:16 30 ML Methadone HCl 10 mg Q8HR PO 02/20/25 14:00 02/22/25 13:33 10 MG Clonazepam 0.5 mg Q12HP PRN PO 02/20/25 13:00 Sodium Chloride 10 ml QSHIFT@10,22 IV 02/21/25 22:00 02/22/25 10:24 10 ML Furosemide 80 mg BIDD IV 02/22/25 08:00 02/22/25 08:27 80 MG Norepinephrine Bitartrate 32 mg/ Sodium Chloride 250 ml @ 0.469 mls/ hr Q24H IV 02/22/25 15:00 02/22/25 15:37 2.344 MLS/HR Examination Patient lying in bed, on mechanical ventilation General: Overweight, afebrile, palor, mucosae are moist Cardiovascular: Regular S1 and S2. No murmurs, gallops or rubs. No JVD elevation. Pedal edema Respiratory: Decreased bilateral air entry on auscultation, mechanically ventilated Abdomen: Soft, nontender, nondistended, normoactive bowel sounds, no rebound tenderness, no organomegaly, no masses. Purulent vesicles on lower abdomen. Penile swelling. Small clots and Aguilar noted. Bilateral lower extremity, cyanosed, bluish, 3+ pedal edema, minimal pulses, cold laboratory and microbiology Laboratory Tests 02/22/25 03:22 Test 02/22/25 03:22 Range/Units Serum Glucose 122 H 74-106 mg/dL Microbiology Date/Time Source Procedure Growth Status 02/13/25 08:15 Nose MRSA Screen - Final Complete 02/11/25 19:38 Blood Blood Culture - Final NO GROWTH AFTER 5 DAYS OF INCUBATION. Complete Labs and/or images reviewed: Labs reviewed by me, Image(s) reviewed by me Problem List/Assessment/Plan Problem List/Assessment/Plan Cirrhosis Acute hypoxic respiratory failure status post intubation Systolic Heart failure with reduced ejection fraction exacerbation NSTEMI Hypertension Hyperkalemia Rule out STI Acute kidney injury Peripheral arterial disease Methamphetamine use dependence Liver ultrasound shows Heterogeneous appearing liver suggesting chronic liver disease. Plan: Recommendation: Bilirubin downtrending, LFTs downtrending. H&H stable. Monitor CMP in a.m.. Continue lactulose 30 mL b.i.d. and senna. Continue conservative management. CPAP trial as tolerated Hepatitis panel negative Continue tube feedings HIV, syphilis negative. Gonorrhea and chlamydia negative Protonix 40 mg daily Plan discussed with the primary RN in which all questions have been answered Case discussed with Dr. Urena Plan discussed with: Other (Girlfriend) Dietary Evaluation Review Comments: CCHO-60 Cardiac diet, texture as tolearated when medically feasible nicotine cessation counseling Follow up with updated lab values Expected Outcomes/Goals: Improved nurition related lab values, free from nicotine WILLIAMS DANG RESIDENT Feb 22, 2025 16:59
[2025-02-22] MEDS: fentaNYL Drip 2500mCg/250mlNS 250 ML IV SCH (21:27)
--- NOTE | 2025-02-22 23:57 | DVHPN2 ---
Subjective DOS: 02/22/2025 Patient seen and examined at bedside. Intubated on mechanical ventilator. Overnight events reviewed. Reviewed: Care Plan, H&P, Labs, Medications, Previous Orders, Radiology Changes from previous H/P or p: No Changes Eyes: No Pain, No Vision change, No Conjunctivae inflammation, No Eyelid inflammation, No Other, No Redness ENT: No Ear pain, No Ear discharge, No Nose pain, No Nose discharge, No Nose congestion, No Mouth pain, No Mouth swelling, No Throat pain, No Throat swelling, No Other Cardiovascular: No Chest Pain, No Palpitations, No Orthopnea, No Paroxysmal Noc. Dyspnea, No Edema, No Lt Headedness, No Other Respiratory: No Cough, No Dry; Shortness of breath, SOB with excertion; No Wheezing, No Hemoptysis, No Pleuritic Pain, No Sputum; Other (SOB at rest) Gastrointestinal: No Nausea, No Vomiting; Abdominal Pain; No Diarrhea, No Constipation, No Melena, No Hematochezia; Other (Abdominal distention) Genitourinary: No Dysuria, No Frequency, No Incontinence, No Hematuria, No Retention, No Other Musculoskeletal: No other, No neck pain, No shoulder pain, No arm pain, No back pain, No hand pain, No leg pain, No foot pain Skin: No Rash, No Lesions, No Jaundice, No Bruising; Other (Lower extremity open wounds) Objective Vitals Vital Signs Date Time Temp Pulse Resp B/P (MAP) Pulse Ox O2 Delivery O2 Flow Rate FiO2 02/22/25 22:05 76 18 113/67 (82) 98 30 02/22/25 22:00 Mechanical Ventilator+ 02/22/25 20:00 98.4 98.4 Intake/Output Intake and Output 02/22/25 07:00 Intake Total 2548.512 ml Output Total 3625 ml Balance -1076.488 ml Intake Oral 1200 ml IV Total 617.512 ml Tube Feeding 731 ml Output Urine Total 3625 ml Exam Gen.: Patient lying in bed in medical ICU. intubated on mechanical ventilator. Head: Normocephalic, atraumatic. Eyes: PERRLA. Ears: Normal external anatomy. Throat: Endotracheal tube and orogastric tube in place. Neck: Supple, trachea midline. Chest: Transmitted breath sounds bilaterally. Decreased air entry bilaterally. No wheezing. Bibasilar crackles. Cardiovascular: Positive S1, positive S2. Regular rate and rhythm. Abdomen: Positive bowel sounds in all 4 quadrants. Soft, nontender, nondistended. : Aguilar in place. Normal external genitalia. Rectal: Deferred. Skin: Warm, dry. Intact. Extremities: 2+ radial pulses bilaterally. No lower extremity edema. Neuro: Off sedation General Appearance: Other (intubate, on vent, unable to examined.) HEENT: Atraumatic, PERRLA, EOMI, Mucous membr. moist/pink Neck: Supple Lungs: Clear to auscultation, Normal air movement Cardiovascular: Regular rate, Normal S1, Normal S2, No murmurs, Gallops, Rubs Abdomen: Normal bowel sounds, Soft, No tenderness Neuro: Other (intubate, on vent , unable to examined.) Medications Current Medications Medications Dose Ordered Sig/Geraldo Route Start Time Stop Time Status Last Admin Dose Admin Albuterol 2.5 mg Q4HPRN PRN NEB 02/11/25 22:15 02/22/25 06:38 2.5 MG Ipratropium [place] 0.5 mg Q4HPRN PRN NEB 02/11/25 22:15 02/22/25 06:38 0.5 MG Diagnostic Test (Pha) 1 strip ACHS 02/12/25 07:00 02/22/25 21:36 1 STRIP Insulin Human Regular ACHS SC 02/12/25 07:00 02/22/25 06:19 2 UNITS Dextrose 50 ml UD PRN IV 02/11/25 22:15 Acetaminophen 650 mg Q6HP PRN PO 02/11/25 22:15 Tamsulosin HCl 0.4 mg QPM PO 02/12/25 18:00 02/19/25 18:05 0.4 MG Aspirin 81 mg DAILY PO 02/12/25 10:00 02/22/25 10:21 81 MG Nicotine 1 patch DAILY TD 02/13/25 10:00 02/22/25 10:20 1 PATCH Vancomycin HCl 0 ml @ 0 mls/hr PER PHARMACY IV 02/13/25 12:00 Midazolam HCl 100 ml @ 1 mls/hr Q24H IV 02/13/25 14:30 02/22/25 15:29 1 MLS/HR Enoxaparin Sodium 40 mg DAILY SC 02/15/25 10:00 02/22/25 10:16 40 MG Octreotide Acetate 100 mcg TID SUBCUT 02/14/25 14:00 02/22/25 21:35 100 MCG Enteral Nutritional Formula 1,000 ml 30ML/HR GT 02/14/25 12:45 02/22/25 06:39 1,000 ML Sennosides 8.6 mg HS PO 02/14/25 22:00 02/22/25 21:34 8.6 MG Quetiapine Fumarate 25 mg BID PO 02/15/25 10:00 02/22/25 21:34 25 MG Meropenem 50 ml @ 17 mls/hr Q8HR IV 02/15/25 14:00 02/22/25 21:35 17 MLS/HR Pantoprazole Sodium 40 mg DAILY IV 02/17/25 10:00 02/22/25 10:14 40 MG Vancomycin HCl 350 ml @ 200 mls/hr DAILY IV 02/17/25 10:00 02/22/25 10:38 200 MLS/HR Lactulose 30 ml BID PO 02/17/25 22:00 02/22/25 10:16 30 ML Methadone HCl 10 mg Q8HR PO 02/20/25 14:00 02/22/25 13:33 10 MG Clonazepam 0.5 mg Q12HP PRN PO 02/20/25 13:00 Sodium Chloride 10 ml QSHIFT@10,22 IV 02/21/25 22:00 02/22/25 21:35 10 ML Furosemide 80 mg BIDD IV 02/22/25 08:00 02/22/25 17:40 80 MG Norepinephrine Bitartrate 32 mg/ Sodium Chloride 250 ml @ 0.469 mls/ hr Q24H IV 02/22/25 15:00 02/22/25 15:37 2.344 MLS/HR Fentanyl Citrate 250 ml @ 2.5 mls/hr Q24H IV 02/22/25 19:15 02/22/25 21:27 5 MLS/HR Laboratory Results Laboratory Tests 02/22/25 03:22 Chemistry Test 02/22/25 03:22 Albumin 2.7 g/dL (3.2-4.8) L Calcium Level 8.1 mg/dL (8.7-10.4) L Magnesium Level 2.0 mg/dL (1.6-2.6) Phosphorus Level 2.5 mg/dL (2.4-5.1) Total Protein 5.3 g/dL (5.7-8.2) L LFT Test 02/22/25 03:22 Alanine Aminotransferase (ALT) 38 U/L (7-40) Alkaline Phosphatase 84 U/L (46-116) Aspartate Amino Transferase (AST) 35 U/L (13-40) Total Bilirubin 1.7 mg/dL (0.2-1.0) H Urinalysis Test 02/14/25 11:30 02/19/25 13:50 Urine Protein/Creatinine Ratio 0.26 Urine Total Protein < 6.0 mg/dL (1-14) Urine Osmolality 587 mOsm/kg Urine Creatinine 76.95 mg/dL (30.0-125.0) Urine Sodium 79 mmol/L (40-220) Blood Gas Results Test 02/22/25 06:13 Arterial Blood pH 7.411 (7.350-7.450) FiO2 % 30.0 Microbiology Microbiology Date/Time Source Procedure Growth Status 02/13/25 08:15 Nose MRSA Screen - Final Complete 02/11/25 19:38 Blood Blood Culture - Final NO GROWTH AFTER 5 DAYS OF INCUBATION. Complete Assessment/Plan Assessment/Plan Impression: Acute hypoxemic respiratory failure On mechanical ventilator Pleural effusion Atelectasis S/p cardiac arrest Cardiomyopathy Congestive heart failure Obesity Events: Remains on vent support On AC mode; RR 18, VT 500, PEEP 6, FiO2 30% Off Precedex drip On Seroquel. Fentanyl drip for analgesia Pressors for hemodynamic support On Levophed 5 mcg/min Titrate to keep mean arterial pressure greater than 65 mmHg. Improving pressor requirements Limited chest ultrasound reveals trace left pleural effusion. Moderate right pleural effusion. Off dopamine. Nephrology recs appreciated. Tube feeds for nutritional support Continue antibiotics Wound care. PICC line placement - PICC line is deemed medically necessary for administration of pressors. Nephrology recs appreciated IV fluids at 150 ml/hr d/t hypernatremia. Monitor sodium Diurese to euvolemia Monitor renal function Monitor electrolytes. Supplement as necessary. Magnesium supplementation Abdomen x-ray shows no e/o bowel obstruction. Labs and imaging reviewed. Rest of plan as noted below. Plan: s/p intubation on mechanical ventilator. On AC mode; RR 18, VT 500, PEEP 6, FiO2 30% Titrate FIO2 to keep O2 saturation above 90%. VAP bundle. Daily ABG and CXR while intubated Patient is s/p right thoracentesis. Continue bronchodilators. Continue antibiotics. Follow up cultures. Monitor WBC count Pressors as necessary for hemodynamic support Titrate to keep mean arterial pressure greater than 65 mmHg. Echo report reviewed; EF approximately 20% Cardiology recs appreciated. On Protonix, Sandostatin Monitor hemoglobin Tube feeds for nutritional support Follow up GI recs Diurese with Lasix Monitor renal function Monitor electrolytes. Supplement as necessary. Monitor ins and outs. Maintain euvolemia. GI prophylaxis -Protonix. DVT prophylaxis - Lovenox. Prognosis: Poor given patient's multiple co-morbidities. Condition: Critical Rest of plan per hospitalist and other consultants. A total of 35 minutes of critical care time was spent reviewing the patient record, examining the patient, making a diagnostic and therapeutic plan, discussing this plan with the medical personnel, following up on diagnostic studies and following the patient for clinical stability excluding any and all procedures. At least 50% of this time was spent in direct, [id number] contact. Thank you, Dr. Blas, for allowing me to participate in this patient's care. Further recommendations will depend on the patient's clinical course. Please do not hesitate to contact me if you have any questions or concerns. This medical document was created using an electronic medical record system with [employer] dictation system. Although these documentations are being carefully reviewed, there may still be some phonetic and typographical changes. The errors are purely typographical, due to imperfection on the software program, and do not reflect any compromise in the patient's medical care. Plan discussed with: Other (LEIGHTON Burns) My Orders Orders - DOLORES VELAZQUEZ MD Procedure Category Date Status Time Abg W/ Co-Ox RT 02/22/25 Logged 06:00 Visit Coding Pulmonary Billing Provider: DOLORES VELAZQUEZ MD Date of Service if different f: Feb 22, 2025 Common Visit Codes: [id number] INP/OBS CARE(HIGH), [id number] CARE 30-74 MIN DOLORES VELAZQUEZ MD Feb 22, 2025 23:57
[2025-02-23] VITALS (106 sets, daily range): BP systolic 101–141; BP diastolic 39–80; PULSE 60–105; RESP 9–24; TEMP 98.3–99.5; O2SAT 91–100
[2025-02-23 04:16] LABS: Hematocrit 40.2 % (41.0-53.0); Hemoglobin 13.4 g/dL (13.5-17.5); Mean Corpuscular Hemoglobin 31.1 pg (28.0-32.0); Mean Corpuscular Volume 93.4 fL (80.0-100.0); Nucleated Red Blood Cells % 0.1 %
[2025-02-23 04:44] LABS: Alanine Aminotransferase 36 U/L (7-40); Alkaline Phosphatase 88 U/L (46-116); Anion Gap 9 (5-15); BUN/Creatinine Ratio 25.3 (10.0-20.0); Blood Urea Nitrogen 20 mg/dL (9-23); Chloride 99 mmol/L (98-107); Magnesium 2.1 mg/dL (1.6-2.6); Sodium 142 mmol/L (136-145)
[2025-02-23 04:52] LABS: Albumin 2.5 g/dL (3.2-4.8); Bilirubin, Total 1.9 mg/dL (0.2-1.0); Calcium 7.6 mg/dL (8.7-10.4); Carbon Dioxide 34 mmol/L (20-31); Glucose 112 mg/dL (74-106); Potassium 3.3 mmol/L (3.5-5.1); Total Protein 5.0 g/dL (5.7-8.2)
--- NOTE | 2025-02-23 05:40 | DVH ---
CHEST RADIOGRAPH INDICATION: intubated TECHNIQUE: 1 view COMPARISON: XY CHEST PORTABLE on DOS: 02/22/25, XY CHEST PORTABLE on DOS: 02/21/25, XY CHEST PORTABLE on DOS: 02/20/25, XY CHEST PORTABLE on DOS: 02/19/25, XY CHEST PORTABLE on DOS: 02/18/25 FINDINGS: Lines and Tubes: Unchanged. Lungs/Pleura: Slightly improved right upper lung aeration. Otherwise persistent diffuse interstitial opacities, basilar airspace disease, and pleural effusions. Cardiomediastinum: Unchanged. Other: No acute osseous abnormality. IMPRESSION: 1. Improved right upper lung aeration without other significant change from the previous study. Stable support devices.
[2025-02-23] MEDS: CALCIUM GLUC 1,000mg/50ml-NS 50 ML IV SCH (05:45)
--- NOTE | 2025-02-23 05:50 | DVH ---
EXAM: US US GUIDED VASCULAR ACCESS CLINICAL HISTORY: PICC COMPARISON: US BILAT LOW EXT ART DUPLEX on DOS: 02/13/25 FINDINGS: Targeted sonographic evaluation of the arm vein was obtained utilizing grayscale and color Doppler imaging. IMPRESSION: Sonographic assistance for peripherally inserted central line placement. Please refer to procedural report for detailed findings.
[2025-02-23] MEDS: POTASSIUM CHL 20MEQ/100ML 100 ML IV ONE (06:12)
[2025-02-23] MEDS: POTASSIUM PHOSPHATE 22 MEQ in SODIUM CHL 0.9% 100 ML IV ONE (08:28)
--- NOTE | 2025-02-23 08:49 | DVHPN2 ---
Assessment/Plan Assessment/Plan ICU note 64 M with HTN, HFrEF 20%, DM, ascites, meth use admitted for SOB, later was found in respiratory distress, intubated and had PEA arrest, ROSC in 4 minutes. 02/14 s/p thora, 2 L out. switched to lasix drip. start TF. POCUS done, minimal tapable pocket in abdomen. wound culture with prelim growth. wound care 02/15 wound culture back, changed abx to vanc and latyon, starting oral meds for weaning, patient previously agitated, to decrease prevent self extubation. lasix drip switched to 60 BID. SAT SBT tomorrow. 02/16 hold diuresis today, POCUS with improving IVC, off sedation, not waking up still. 02/17 adding diamox, metabolic alkalosis, decrease RR, holding methadone and klonazepam, off sedation, opening eyes to name, not following command, c/w SAT SBT. 02/18 off sedation and calm 02/19 continues to remain intubated and off sedation 02/20 agitated, restarting methadone and clonazepam. will d/w fam regarding trach if he continues to be difficult to sedate. positive balance, readding lasix, discontinueing fluid. 02/21 POCUS done, IVC >2cm with no excursion, severely reduced EF. net positive the past 2 days, doubling lasix dose. back on pressor. follows commands once. once stable will get CT angio to see if he will need intervention. podiatry consult 02/22 b/l UE superficial thrombus, no deep vein thrombus, dc tlc, continue to titrate off pressor, c/w diuresis. daily SAT SBT. i called family but went to . plan for extubation vs trach, possibly without full mental status if doing well during cpap 02/23 seen today, still on sedation. on and off having bradycardia and NSVT. cardio reconsulted today. starting dobutamine, c/w lasix acetazolamide called ex nannette, per ex , both sons will make medical decision together, given contact number of son through his boss. Norma Ugarte [phone] and son is Hai. Explained to Hai (son) regarding trach and peg and need of possible ppm and angiogram. he understands, will discuss with family and get back with a decision tomorrow. physical exam intubated on mechanical ventilator mildly sedated obese opening eyes to name follows commands once cannot appreciate JVD mechanical breath sounds S1 S2 systolic murmur abdomen distended b/l LE edema w/ chronic venous wounds R foot with multiple gangrene dry and wet vent ac/vc 550 16 30% PEEP 6 7.302/50/77 drips levophed fentanyl versed labs reviewed acetinobacter, pseudomonas, e faecalis, MRSA in wound cultrue imaging cxr RLL opacity echo LVEF 20%, DCM, MR assessment and plan s/p PEA arrest ROSC 4 mins cardiogenic shock acute on chronic hypoxic RF acute on chronic systolic HF small R PLEF COPD with exacerbation PNA gp vs gn HFrEF 20% DCM transaminitis cirrhosis? ascites? ALEXIS likely VMN lactic acidosis meth use leukocytosis type 2 VT demand ischemia DM? chronic venous stasis wound with multiple bact L testicular mass? foot gangrene b/l UE superficial thrombosis high degree block NSVT ICU SAT SBT titrate levophed to maintain MAP >60 c/w mechanical vent increase diuresis to goal net neg 1L daily c/w sedation, maintain RAAS -2, added methadone, klonopin, seroquel trend lactate, cr, LFT c/w vanc , zosyn switched to [place] avoid fever VAP bundle bronchodilators hold GDMT until off pressors send A1C, lipid, tsh wound care daily SAT SBT podiatry consult CTA runoff once stable dobutamine to assist diuresis and inotropy, will dc if NSVT increased keep K 4 Ph 3 Mg 2 Diet jevity to goal DVT PPX lovenox GI PPX protonix Lines RIJ TLC NGT jaffe PICC Full code condition critical prognosis poor critical care time 90 minutes Plan discussed with: Son, Other My Orders Orders - SYEDA VILLALOBOS MD Procedure Category Date Status Time Sodium Chl 0.9% PHA 02/22/25 In Process (Ns... 15:00 D/C Triple Lumen ORDERS 02/22/25 Transmitted 17:39 Fentanyl Drip PHA 02/22/25 In Process 2500mcg/250mlns 19:15 Date of Service: Feb 23, 2025 Billing Provider: SYEDA VILLALOBOS MD Common Visit Codes: [id number] CARE 30-74 MIN, [id number] CARE-EACH +30MIN SYEDA VILLALOBOS MD Feb 23, 2025 08:49
[2025-02-23 09:37] LABS: Base Excess 3.4 mmol/L (-2.0-3.0)
--- NOTE | 2025-02-23 11:49 | DVHPN2 ---
Progress Note Date Seen: Feb 23, 2025 Resident Creating Document: WILLIAMS DANG RESIDENT Medical Necessity Reason Pt with a Central, PICC or Fol: Yes The following are medically ne: Central Line, Aguilar Catheter Subjective Review of Systems On pressors, abdomen soft nontender Objective vital signs Vital Sign Date Time Temp Pulse Resp B/P (MAP) Pulse Ox O2 Delivery O2 Flow Rate FiO2 02/23/25 10:00 18 Mechanical Ventilator+ 30 30 02/23/25 10:00 78 02/23/25 09:17 122/75 (91) 96 02/23/25 04:00 98.9 98.9 Total Intake and Output 02/22/25 02/22/25 02/23/25 15:00 23:00 07:00 Intake Total 786.691 ml 770.843 ml 503.967 ml Output Total 2000 ml 3050 ml Balance 786.691 ml -1229.157 ml -2546.033 ml medications Current Medications Medications Dose Ordered Sig/Geraldo Route Start Time Stop Time Status Last Admin Dose Admin Albuterol 2.5 mg Q4HPRN PRN NEB 02/11/25 22:15 02/22/25 06:38 2.5 MG Ipratropium [place] 0.5 mg Q4HPRN PRN NEB 02/11/25 22:15 02/22/25 06:38 0.5 MG Diagnostic Test (Pha) 1 strip ACHS 02/12/25 07:00 02/23/25 05:55 1 STRIP Insulin Human Regular ACHS SC 02/12/25 07:00 02/23/25 06:03 2 UNITS Dextrose 50 ml UD PRN IV 02/11/25 22:15 Acetaminophen 650 mg Q6HP PRN PO 02/11/25 22:15 Tamsulosin HCl 0.4 mg QPM PO 02/12/25 18:00 02/19/25 18:05 0.4 MG Aspirin 81 mg DAILY PO 02/12/25 10:00 02/23/25 10:21 81 MG Nicotine 1 patch DAILY TD 02/13/25 10:00 02/23/25 10:18 1 PATCH Vancomycin HCl 0 ml @ 0 mls/hr PER PHARMACY IV 02/13/25 12:00 Midazolam HCl 100 ml @ 1 mls/hr Q24H IV 02/13/25 14:30 02/22/25 15:29 1 MLS/HR Enoxaparin Sodium 40 mg DAILY SC 02/15/25 10:00 02/23/25 10:19 40 MG Octreotide Acetate 100 mcg TID SUBCUT 02/14/25 14:00 02/23/25 05:53 100 MCG Enteral Nutritional Formula 1,000 ml 30ML/HR GT 02/14/25 12:45 02/22/25 06:39 1,000 ML Sennosides 8.6 mg HS PO 02/14/25 22:00 02/22/25 21:34 8.6 MG Quetiapine Fumarate 25 mg BID PO 02/15/25 10:00 02/23/25 10:21 25 MG Meropenem 50 ml @ 17 mls/hr Q8HR IV 02/15/25 14:00 02/23/25 05:53 17 MLS/HR Pantoprazole Sodium 40 mg DAILY IV 02/17/25 10:00 02/23/25 10:15 40 MG Vancomycin HCl 350 ml @ 200 mls/hr DAILY IV 02/17/25 10:00 02/23/25 10:32 200 MLS/HR Lactulose 30 ml BID PO 02/17/25 22:00 02/22/25 10:16 30 ML Methadone HCl 10 mg Q8HR PO 02/20/25 14:00 02/23/25 05:54 10 MG Clonazepam 0.5 mg Q12HP PRN PO 02/20/25 13:00 Sodium Chloride 10 ml QSHIFT@10,22 IV 02/21/25 22:00 02/23/25 10:15 10 ML Furosemide 80 mg BIDD IV 02/22/25 08:00 02/22/25 17:40 80 MG Norepinephrine Bitartrate 32 mg/ Sodium Chloride 250 ml @ 0.469 mls/ hr Q24H IV 02/22/25 15:00 02/22/25 15:37 2.344 MLS/HR Fentanyl Citrate 250 ml @ 2.5 mls/hr Q24H IV 02/22/25 19:15 02/22/25 21:27 5 MLS/HR Examination Patient lying in bed, on mechanical ventilation General: Overweight, afebrile, palor, mucosae are moist Cardiovascular: Regular S1 and S2. No murmurs, gallops or rubs. No JVD elevation. Pedal edema Respiratory: Decreased bilateral air entry on auscultation, mechanically ventilated Abdomen: Soft, nontender, nondistended, normoactive bowel sounds, no rebound tenderness, no organomegaly, no masses. Purulent vesicles on lower abdomen. Penile swelling. Small clots and Aguilar noted. Bilateral lower extremity, cyanosed, bluish, 3+ pedal edema, minimal pulses, cold laboratory and microbiology Laboratory Tests 02/23/25 03:05 Test 02/23/25 03:05 Range/Units Serum Glucose 112 H 74-106 mg/dL Microbiology Date/Time Source Procedure Growth Status 02/13/25 08:15 Nose MRSA Screen - Final Complete 02/11/25 19:38 Blood Blood Culture - Final NO GROWTH AFTER 5 DAYS OF INCUBATION. Complete Labs and/or images reviewed: Labs reviewed by me, Image(s) reviewed by me Problem List/Assessment/Plan Problem List/Assessment/Plan Cirrhosis Acute hypoxic respiratory failure status post intubation Systolic Heart failure with reduced ejection fraction exacerbation NSTEMI Hypertension Hyperkalemia Rule out STI Acute kidney injury Peripheral arterial disease Methamphetamine use dependence Liver ultrasound shows Heterogeneous appearing liver suggesting chronic liver disease. Plan: Recommendation: Bilirubin slightly up, LFTs unremarkable. H&H stable. Monitor CMP in a.m.. Continue lactulose 30 mL b.i.d. and senna. Continue conservative management. CPAP trial as tolerated Hepatitis panel negative Continue tube feedings HIV, syphilis negative. Gonorrhea and chlamydia negative Protonix 40 mg daily Plan discussed with the primary RN in which all questions have been answered Case discussed with Dr. Urena Plan discussed with: Other (RN) Dietary Evaluation Review Comments: CCHO-60 Cardiac diet, texture as tolearated when medically feasible nicotine cessation counseling Follow up with updated lab values Expected Outcomes/Goals: Improved nurition related lab values, free from nicotine WILLIAMS DANG RESIDENT Feb 23, 2025 11:49
[2025-02-23] MEDS: FUROSEMIDE 100 MG/10ML VIAL IV ONE (14:27)
[2025-02-23] MEDS: POTASSIUM CHL 20MEQ/100ML 100 ML IV SCH (14:51)
[2025-02-23] MEDS: DOBUTamine 1000MCG/ML 250 ML IV SCH (14:54)
--- NOTE | 2025-02-23 22:12 | DVHPN2 ---
Subjective DOS: 02/23/2025 Patient seen and examined at bedside. Sedated, intubated on mechanical ventilator. Overnight events reviewed. Reviewed: Care Plan, H&P, Labs, Medications, Previous Orders, Radiology Changes from previous H/P or p: No Changes Eyes: No Pain, No Vision change, No Conjunctivae inflammation, No Eyelid inflammation, No Other, No Redness ENT: No Ear pain, No Ear discharge, No Nose pain, No Nose discharge, No Nose congestion, No Mouth pain, No Mouth swelling, No Throat pain, No Throat swelling, No Other Cardiovascular: No Chest Pain, No Palpitations, No Orthopnea, No Paroxysmal Noc. Dyspnea, No Edema, No Lt Headedness, No Other Respiratory: No Cough, No Dry; Shortness of breath, SOB with excertion; No Wheezing, No Hemoptysis, No Pleuritic Pain, No Sputum; Other (SOB at rest) Gastrointestinal: No Nausea, No Vomiting; Abdominal Pain; No Diarrhea, No Constipation, No Melena, No Hematochezia; Other (Abdominal distention) Genitourinary: No Dysuria, No Frequency, No Incontinence, No Hematuria, No Retention, No Other Musculoskeletal: No other, No neck pain, No shoulder pain, No arm pain, No back pain, No hand pain, No leg pain, No foot pain Skin: No Rash, No Lesions, No Jaundice, No Bruising; Other (Lower extremity open wounds) Objective Vitals Vital Signs Date Time Temp Pulse Resp B/P (MAP) Pulse Ox O2 Delivery O2 Flow Rate FiO2 02/23/25 21:21 112/60 02/23/25 20:09 86 18 96 30 02/23/25 18:00 Mechanical Ventilator+ 02/23/25 16:00 98.5 98.5 Intake/Output Intake and Output 02/23/25 07:00 Intake Total 2066.782 ml Output Total 5050 ml Balance -2983.218 ml Intake Oral 500 ml IV Total 946.782 ml Tube Feeding 620 ml Output Urine Total 5050 ml Urine/Stool Mix 0 ml Exam Gen.: Patient lying in bed in medical ICU. Sedated, intubated on mechanical ventilator. Head: Normocephalic, atraumatic. Eyes: PERRLA. Ears: Normal external anatomy. Throat: Endotracheal tube and orogastric tube in place. Neck: Supple, trachea midline. Chest: Transmitted breath sounds bilaterally. Decreased air entry bilaterally. No wheezing. Bibasilar crackles. Cardiovascular: Positive S1, positive S2. Regular rate and rhythm. Abdomen: Positive bowel sounds in all 4 quadrants. Soft, nontender, nondistended. : Aguilar in place. Normal external genitalia. Rectal: Deferred. Skin: Warm, dry. Intact. Extremities: 2+ radial pulses bilaterally. No lower extremity edema. Neuro: Sedated General Appearance: Other (intubate, on vent, unable to examined.) HEENT: Atraumatic, PERRLA, EOMI, Mucous membr. moist/pink Neck: Supple Lungs: Clear to auscultation, Normal air movement Cardiovascular: Regular rate, Normal S1, Normal S2, No murmurs, Gallops, Rubs Abdomen: Normal bowel sounds, Soft, No tenderness Neuro: Other (intubate, on vent , unable to examined.) Medications Current Medications Medications Dose Ordered Sig/Geraldo Route Start Time Stop Time Status Last Admin Dose Admin Albuterol 2.5 mg Q4HPRN PRN NEB 02/11/25 22:15 02/22/25 06:38 2.5 MG Ipratropium [place] 0.5 mg Q4HPRN PRN NEB 02/11/25 22:15 02/22/25 06:38 0.5 MG Diagnostic Test (Pha) 1 strip ACHS 02/12/25 07:00 02/23/25 21:36 1 STRIP Insulin Human Regular ACHS SC 02/12/25 07:00 02/23/25 21:43 2 UNITS Dextrose 50 ml UD PRN IV 02/11/25 22:15 Acetaminophen 650 mg Q6HP PRN PO 02/11/25 22:15 Tamsulosin HCl 0.4 mg QPM PO 02/12/25 18:00 02/23/25 18:35 0.4 MG Aspirin 81 mg DAILY PO 02/12/25 10:00 02/23/25 10:21 81 MG Nicotine 1 patch DAILY TD 02/13/25 10:00 02/23/25 10:18 1 PATCH Vancomycin HCl 0 ml @ 0 mls/hr PER PHARMACY IV 02/13/25 12:00 Midazolam HCl 100 ml @ 1 mls/hr Q24H IV 02/13/25 14:30 02/22/25 15:29 1 MLS/HR Enoxaparin Sodium 40 mg DAILY SC 02/15/25 10:00 02/23/25 10:19 40 MG Octreotide Acetate 100 mcg TID SUBCUT 02/14/25 14:00 02/23/25 20:49 100 MCG Enteral Nutritional Formula 1,000 ml 30ML/HR GT 02/14/25 12:45 02/23/25 21:21 1,000 ML Sennosides 8.6 mg HS PO 02/14/25 22:00 02/23/25 20:47 8.6 MG Quetiapine Fumarate 25 mg BID PO 02/15/25 10:00 02/23/25 20:47 25 MG Meropenem 50 ml @ 17 mls/hr Q8HR IV 02/15/25 14:00 02/23/25 20:45 17 MLS/HR Pantoprazole Sodium 40 mg DAILY IV 02/17/25 10:00 02/23/25 10:15 40 MG Lactulose 30 ml BID PO 02/17/25 22:00 02/23/25 20:45 30 ML Methadone HCl 10 mg Q8HR PO 02/20/25 14:00 02/23/25 20:47 10 MG Clonazepam 0.5 mg Q12HP PRN PO 02/20/25 13:00 Sodium Chloride 10 ml QSHIFT@10,22 IV 02/21/25 22:00 02/23/25 21:37 10 ML Furosemide 80 mg BIDD IV 02/22/25 08:00 02/23/25 18:36 80 MG Norepinephrine Bitartrate 32 mg/ Sodium Chloride 250 ml @ 0.469 mls/ hr Q24H IV 02/22/25 15:00 02/23/25 21:07 3.281 MLS/HR Fentanyl Citrate 250 ml @ 2.5 mls/hr Q24H IV 02/22/25 19:15 02/23/25 21:21 2.5 MLS/HR Dobutamine HCl/ Dextrose 250 ml @ 27 mls/hr Q9H16M IV 02/23/25 13:45 02/23/25 14:54 27 MLS/HR Vancomycin HCl 250 ml @ 166.667 mls/hr DAILY IV 02/24/25 10:00 Laboratory Results Laboratory Tests 02/23/25 03:05 Chemistry Test 02/23/25 03:05 Albumin 2.5 g/dL (3.2-4.8) L Calcium Level 7.6 mg/dL (8.7-10.4) L Magnesium Level 2.1 mg/dL (1.6-2.6) Phosphorus Level 2.2 mg/dL (2.4-5.1) L Total Protein 5.0 g/dL (5.7-8.2) L LFT Test 02/23/25 03:05 Alanine Aminotransferase (ALT) 36 U/L (7-40) Alkaline Phosphatase 88 U/L (46-116) Aspartate Amino Transferase (AST) 40 U/L (13-40) Total Bilirubin 1.9 mg/dL (0.2-1.0) H Urinalysis Test 02/14/25 11:30 02/19/25 13:50 Urine Protein/Creatinine Ratio 0.26 Urine Total Protein < 6.0 mg/dL (1-14) Urine Osmolality 587 mOsm/kg Urine Creatinine 76.95 mg/dL (30.0-125.0) Urine Sodium 79 mmol/L (40-220) Blood Gas Results Test 02/23/25 08:19 Arterial Blood pH 7.439 (7.350-7.450) FiO2 % 30.0 Microbiology Microbiology Date/Time Source Procedure Growth Status 02/13/25 08:15 Nose MRSA Screen - Final Complete 02/11/25 19:38 Blood Blood Culture - Final NO GROWTH AFTER 5 DAYS OF INCUBATION. Complete Assessment/Plan Assessment/Plan Impression: Acute hypoxemic respiratory failure On mechanical ventilator Pleural effusion Atelectasis S/p cardiac arrest Cardiomyopathy Congestive heart failure Obesity Events: Remains on vent support On AC mode; RR 18, VT 500, PEEP 6, FiO2 30% Sedated on Versed, Fentanyl drip. Off Precedex drip On Seroquel. Pressors for hemodynamic support On Levophed 7 mcg/min Titrate to keep mean arterial pressure greater than 65 mmHg. Taper down pressors as tolerated Patient with on and off bradycardia and NSVT Cardiology recs appreciated On Dobutamine 5 mcg/min for inotropic support Limited chest ultrasound revealed trace left pleural effusion. Moderate right pleural effusion. Off dopamine. Nephrology recs appreciated. Tube feeds for nutritional support Continue antibiotics Wound care. S/p PICC line placement - PICC line is deemed medically necessary for administration of pressors. Nephrology recs appreciated Diurese to euvolemia Monitor renal function Monitor electrolytes. Supplement as necessary. Potassium supplementation Abdomen x-ray shows no e/o bowel obstruction. Labs and imaging reviewed. Rest of plan as noted below. Plan: s/p intubation on mechanical ventilator. On AC mode; RR 18, VT 500, PEEP 6, FiO2 30% Titrate FIO2 to keep O2 saturation above 90%. VAP bundle. Daily ABG and CXR while intubated Patient is s/p right thoracentesis. Continue bronchodilators. Continue antibiotics. Follow up cultures. Monitor WBC count Pressors as necessary for hemodynamic support Titrate to keep mean arterial pressure greater than 65 mmHg. Echo report reviewed; EF approximately 20% Cardiology recs appreciated. On Protonix, Sandostatin Monitor hemoglobin Tube feeds for nutritional support Follow up GI recs Diurese with Lasix Monitor renal function Monitor electrolytes. Supplement as necessary. Monitor ins and outs. Maintain euvolemia. GI prophylaxis -Protonix. DVT prophylaxis - Lovenox. Prognosis: Poor given patient's multiple co-morbidities. Condition: Critical Rest of plan per hospitalist and other consultants. A total of 35 minutes of critical care time was spent reviewing the patient record, examining the patient, making a diagnostic and therapeutic plan, discussing this plan with the medical personnel, following up on diagnostic studies and following the patient for clinical stability excluding any and all procedures. At least 50% of this time was spent in direct, [id number] contact. Thank you, Dr. Blas, for allowing me to participate in this patient's care. Further recommendations will depend on the patient's clinical course. Please do not hesitate to contact me if you have any questions or concerns. This medical document was created using an electronic medical record system with [employer] dictation system. Although these documentations are being carefully reviewed, there may still be some phonetic and typographical changes. The errors are purely typographical, due to imperfection on the software program, and do not reflect any compromise in the patient's medical care. Plan discussed with: Other (LEIGHTON Trinidad) My Orders Orders - DOLORES VELAZQUEZ MD Procedure Category Date Status Time Abg W/ Co-Ox RT 02/23/25 Logged 06:00 Visit Coding Pulmonary Billing Provider: DOLORES VELAZQUEZ MD Date of Service if different f: Feb 23, 2025 Common Visit Codes: [id number] INP/OBS CARE(HIGH), [id number] CARE 30-74 MIN DOLORES VELAZQUEZ MD Feb 23, 2025 22:12
--- NOTE | 2025-02-23 23:45 | DVHINCON2 ---
Date of service: Feb 23, 2025 Referring Physician Wan Reason for Consultation AV block, NSVT History of Present Illness The is a 64-year-old male with a past medical history of CHF, hypertension, and diabetes mellitus who presented to the ED on 02/11 with complaint of abdominal distention. Patient reports that he has been experiencing abdominal distention associated with shortness of breaths, bipedal edema, orthopnea, cyanosis, generalized weakness. Patient was recently seen at [facility] for similar symptoms however abdominal paracentesis was not done. Grey roblero was called on 02/13 with successful ROSC and patient was intubated for airway protection. Cardiology was reconsulted today due to the patient having on and off bradycardia and NSVT. Family History: Patient reports no known family medical history. Allergies: Coded Allergies: NO KNOWN ALLERGIES (Unverified , 02/11/25) Current Medications Current Medications Medications (Trade) Dose Ordered Sig/Geraldo Route PRN Reason Start Time Stop Time Status Last Admin Calcium Gluconate/ Sodium Chloride 50 ml @ 100 mls/hr Q30M IV 02/23/25 05:15 02/23/25 06:14 DC 02/23/25 05:45 Dobutamine HCl/ Dextrose 250 ml @ 27 mls/hr Q9H16M IV 02/23/25 13:45 02/23/25 14:54 Potassium Chloride 100 ml @ 50 mls/hr Q2H IV 02/23/25 13:45 02/23/25 17:44 DC 02/23/25 15:45 Vancomycin HCl 250 ml @ 166.667 mls/hr DAILY IV 02/24/25 10:00 Review of Systems Unable to review: Intubated on ventilator. Vital Signs Vital Signs Date Time Temp Pulse Resp B/P (MAP) Pulse Ox O2 Delivery O2 Flow Rate FiO2 02/23/25 21:21 112/60 02/23/25 20:09 86 18 96 30 02/23/25 18:00 Mechanical Ventilator+ 02/23/25 16:00 98.5 98.5 Physical Exam GENERAL: Ill appearing, intubated on ventilator. EYES: PERRL, EOMI. Anicteric. HENT: Moist mucous membranes. LUNGS: Decreased breath sounds. CARDIOVASCULAR: Regular rate and rhythm. ABDOMEN: Soft, nontender and nondistended. EXTREMITIES: No edema. SKIN: Warm, dry. Labs/Diagnostic Data Labs Test 02/23/25 21:38 02/23/25 08:52 02/23/25 08:19 02/23/25 03:05 Range/Units POC Glucose 132 H 70-106 mg/dl Vancomycin Level Trough 18.1 H 5-10 ug/mL Blood Gas Specimen Type Arterial Blood Gas Sample Site Right radial Blood Gas Patient Temperature 37.0 Arterial Blood Date Drawn [id number] Arterial Blood pH 7.439 7.350-7.450 Arterial Blood Partial Pressure CO2 42.3 35.0-48.0 mmHg Arterial Blood Partial Pressure O2 74.6 L 83.0-108.0 mmHg Arterial Blood HCO3 28.0 21.0-28.0 mmol/L Arterial Blood Oxygen Saturation 95.0 94.0-98.0 % Arterial Blood Base Excess 3.4 H -2.0-3.0 mmol/L Arterial Blood Oxyhemoglobin 93.1 L 94.0-98.0 % Arterial Blood Carboxyhemoglobin 1.7 H 0.5-1.5 % Arterial Blood Methemoglobin 0.3 0.0-1.5 % Arterial Blood Deoxyhemoglobin 4.9 0.0-5.0 % Charles Test Modified Blood Gas Total Hemoglobin 14.80 13.5-17.5 g/dL Blood Gas Set Respiration Rate 18.0 Blood Gas Modality Vent - ac FiO2 % 30.0 Blood Gas Tidal Volume 500.0 Blood Gas PEEP or CPAP 6.0 White Blood Count 6.6 4.4-10.8 10^3/uL Red Blood Count 4.30 L 4.5-5.90 10^6/uL Hemoglobin 13.4 L 13.5-17.5 g/dL Hematocrit 40.2 L 41.0-53.0 % Mean Corpuscular Volume 93.4 80.0-100.0 fL Mean Corpuscular Hemoglobin 31.1 28.0-32.0 pg Mean Corpuscular Hemoglobin Concent 33.3 32.0-36.0 g/dL Red Cell Distribution Width 15.9 H 11.8-14.3 % Platelet Count 156 140-450 10^3/uL Mean Platelet Volume 9.1 6.9-10.8 fL Neutrophils (%) (Auto) 81.7 H 37.0-80.0 % Lymphocytes (%) (Auto) 6.8 L 10.0-50.0 % Monocytes (%) (Auto) 6.6 0.0-12.0 % Eosinophils (%) (Auto) 3.9 0.0-7.0 % Basophils (%) (Auto) 1.0 0.0-2.0 % Neutrophils # (Auto) 5.4 1.6-8.6 10 ^3/uL Lymphocytes # (Auto) 0.5 0.4-5.4 10 ^3/uL Monocytes # (Auto) 0.4 0-1.3 10 ^3/uL Eosinophils # (Auto) 0.3 0-0.8 10 ^3/uL Basophils # (Auto) 0.1 0-0.2 10 ^3/uL Nucleated Red Blood Cells 0.1 % Sodium Level 142 136-145 mmol/L Potassium Level 3.3 L 3.5-5.1 mmol/L Chloride Level 99 98-107 mmol/L Carbon Dioxide Level 34 H 20-31 mmol/L Anion Gap 9 5-15 Blood Urea Nitrogen 20 9-23 mg/dL Creatinine 0.79 0.700-1.30 mg/dL Glomerular Filtration Rate Calc 100 >90 mL/min BUN/Creatinine Ratio 25.3 H 10.0-20.0 Serum Glucose 112 H 74-106 mg/dL Calcium Level 7.6 L 8.7-10.4 mg/dL Phosphorus Level 2.2 L 2.4-5.1 mg/dL Magnesium Level 2.1 1.6-2.6 mg/dL Total Bilirubin 1.9 H 0.2-1.0 mg/dL Aspartate Amino Transferase (AST) 40 13-40 U/L Alanine Aminotransferase (ALT) 36 7-40 U/L Alkaline Phosphatase 88 46-116 U/L Ammonia 37 H 11-32 umol/L Total Protein 5.0 L 5.7-8.2 g/dL Albumin 2.5 L 3.2-4.8 g/dL Test 02/19/25 13:50 02/19/25 06:49 02/17/25 08:24 02/17/25 03:28 Range/Units Urine Osmolality 587 mOsm/kg Urine Creatinine 76.95 30.0-125.0 mg/dL Urine Sodium 79 40-220 mmol/L Prothrombin Time 12.1 H 9.3-11.8 sec Prothrombin Time INR 1.16 H 0.9-1.15 Specimen Drawn By Terrell murray Random Vancomycin Level 15.0 H 5-10 ug/mL Test 02/16/25 11:35 02/14/25 16:52 02/14/25 11:30 02/14/25 09:50 Range/Units Direct Bilirubin 1.1 H <0.3 mg/dL Treponema pallidum Antibody Non-reactive Negative HIV (1&2) Antibody Negative Negative Urine Protein/Creatinine Ratio 0.26 Urine Total Protein < 6.0 1-14 mg/dL Chlamydia trachomatis (JASBIR) Negative Negative Neisseria gonorrhoeae (JASBIR) Negative Negative Body Fluid Source Pleural fluid Body Fluid WBC (Manual) 789 H 0-200 CUMM Body Fluid RBC (Manual) 1326 0-2000 CUMM Body Fluid Mononuclear Cells 14 % Body Fluid Polymorphonuclear Cells 86 H 0-25 % Body Fluid Glucose 113 . mg/dL Body Fluid Total Protein 1.8 . g/dL Test 02/14/25 03:31 02/13/25 18:35 02/13/25 16:15 02/13/25 12:59 Range/Units Hemoglobin A1c 5.9 H <5.7 % A1C B-Type Natriuretic Peptide 1266.88 0-100 pg/mL Triglycerides Level 81 < 150 mg/dL Cholesterol Level 119 < 200 mg/dL LDL Cholesterol 80 < 100 mg/dL HDL Cholesterol 25 L 40-59 mg/dL Thyroid Stimulating Hormone (TSH) 0.62 0.55-4.78 uIU/mL Urine Opiates Screen Neg NEGATIVE Urine Fentanyl Screen Pos NEGATIVE Urine Barbiturates Screen Neg NEGATIVE Urine Phencyclidine Screen Neg NEGATIVE Urine Amphetamines Screen Pos NEGATIVE Urine Benzodiazepines Screen Pos NEGATIVE Urine Cocaine Screen Neg NEGATIVE Urine Cannabinoids Screen Neg NEGATIVE Troponin I High Sensitivity 163 *H </=54 ng/L Lactic Acid Level 1.6 0.4-2.0 mmol/L Test 02/13/25 06:25 02/13/25 06:15 02/13/25 02:40 02/11/25 18:54 Range/Units Blood Gas Spontaneous Rate 25 Ferritin 87.6 22-322 ng/mL Hepatitis A Antibody Total Positive H Negative Hepatitis B Surface Antigen Negative Negative Hepatitis B Surface Antibody Negative Negative Hepatitis B Core Total Antibody Negative Negative Hepatitis C Antibody Negative Negative Blood Gas Liter Flow 6.00 Blood Gas Critical Value Read Back Yes Blood Gas Notified Whom Md paige engel Blood Gas Notified Time [id number] Blood Gas Notified By Rt mikayla mcdowell Venous Blood pH 7.355 7.320-7.430 Venous Blood pCO2 at Patient Temp 47.3 38.0-54.0 mmHg Venous Blood pO2 at Patient Temp < 36.5 23.0-48.0 mmHg Venous Blood HCO3 25.8 22.0-29.0 mmol/L Venous Blood Base Excess -0.2 -2.0-3.0 mmol/L Test 02/11/25 18:53 Range/Units Activated Partial Thromboplast Time 30.8 24.5-34.5 SEC Microbiology Date/Time Source Procedure Growth Status 02/13/25 08:15 Nose MRSA Screen - Final Complete 02/11/25 19:38 Blood Blood Culture - Final NO GROWTH AFTER 5 DAYS OF INCUBATION. Complete Assessment S/P PEA arrest. Cardiogenic shock. Acute hypoxic respiratory failure Systolic Heart failure with reduced ejection fraction. NSTEMI. Hypertension. Hyperkalemia. Small R pleural effusion. COPD with exacerbation. PNA. DCM. Transaminitis. ALEXIS. Lactic acidosis. Meth use. Leukocytosis. Type 2 DE demand ischemia. Chronic venous stasis. Foot gangrene. L/l UE superficial thrombosis. High degree block. NSVT. Plan/Recommendation I agree with your ongoing assessment and care of plan. Aspirin. DVT and GI prophylactics. Diuretics with Lasix. IV antibiotics as ordered. Vasopressors for hemodynamic support. Additional plan as per the hospital course. Critical care time of 90 minutes provided to include time spent evaluation of patient at bedside, when appropriate patient/family education for diagnosis, treatment plan, review of pertinent medical information and discussion of care with specialty providers and PCP. Mechanical ventilator parameters, treatment and adjustments have personally been reviewed by me and treatment plan by tube cutter has also been reviewed. Plan discussed with: Other SHARMILA BENDER MD Feb 23, 2025 22:25
[2025-02-24] VITALS (106 sets, daily range): BP systolic 80–136; BP diastolic 47–82; PULSE 71–98; RESP 10–25; TEMP 89.9–99.1; O2SAT 90–100
[2025-02-24 03:50] LABS: Hematocrit 40.5 % (41.0-53.0); Hemoglobin 13.6 g/dL (13.5-17.5); Mean Corpuscular Hemoglobin 31.0 pg (28.0-32.0); Mean Corpuscular Volume 92.5 fL (80.0-100.0); Nucleated Red Blood Cells % 0.1 %
[2025-02-24 03:56] LABS: Chloride 100 mmol/L (98-107); Sodium 141 mmol/L (136-145)
[2025-02-24 03:57] LABS: Anion Gap 6 (5-15)
[2025-02-24 03:58] LABS: Carbon Dioxide 35 mmol/L (20-31); Potassium 3.4 mmol/L (3.5-5.1)
[2025-02-24 04:03] LABS: BUN/Creatinine Ratio 23.9 (10.0-20.0); Blood Urea Nitrogen 16 mg/dL (9-23)
[2025-02-24 04:04] LABS: Magnesium 2.0 mg/dL (1.6-2.6)
[2025-02-24 04:09] LABS: Calcium 7.9 mg/dL (8.7-10.4); Glucose 136 mg/dL (74-106)
[2025-02-24] MEDS: POTASSIUM CHL 20MEQ/100ML 100 ML IV SCH (05:29)
[2025-02-24 07:26] LABS: Base Excess 8.2 mmol/L (-2.0-3.0)
[2025-02-24] MEDS: VANCOMYCIN 1.5GM/250ML 250 ML IV SCH (11:30)
--- NOTE | 2025-02-24 13:16 | DVHPN2 ---
Assessment/Plan Assessment/Plan ICU note 64 M with HTN, HFrEF 20%, DM, ascites, meth use admitted for SOB, later was found in respiratory distress, intubated and had PEA arrest, ROSC in 4 minutes. 02/14 s/p thora, 2 L out. switched to lasix drip. start TF. POCUS done, minimal tapable pocket in abdomen. wound culture with prelim growth. wound care 02/15 wound culture back, changed abx to vanc and layton, starting oral meds for weaning, patient previously agitated, to decrease prevent self extubation. lasix drip switched to 60 BID. SAT SBT tomorrow. 02/16 hold diuresis today, POCUS with improving IVC, off sedation, not waking up still. 02/17 adding diamox, metabolic alkalosis, decrease RR, holding methadone and klonazepam, off sedation, opening eyes to name, not following command, c/w SAT SBT. 02/18 off sedation and calm 02/19 continues to remain intubated and off sedation 02/20 agitated, restarting methadone and clonazepam. will d/w fam regarding trach if he continues to be difficult to sedate. positive balance, readding lasix, discontinueing fluid. 02/21 POCUS done, IVC >2cm with no excursion, severely reduced EF. net positive the past 2 days, doubling lasix dose. back on pressor. follows commands once. once stable will get CT angio to see if he will need intervention. podiatry consult 02/22 b/l UE superficial thrombus, no deep vein thrombus, dc tlc, continue to titrate off pressor, c/w diuresis. daily SAT SBT. i called family but went to . plan for extubation vs trach, possibly without full mental status if doing well during cpap 02/23 seen today, still on sedation. on and off having bradycardia and NSVT. cardio reconsulted today. starting dobutamine, c/w lasix acetazolamide 02/24 adequate diuresis, stion dobu and levo, no increase ectopy. no mental status. called fam member but went to again. consult for trach and peg. called ex nannette, per ex , both sons will make medical decision together, given contact number of son through his boss. Norma Torito [phone] and son is Franco. Explained to Franco (son) regarding trach and peg and need of possible ppm and angiogram. he understands, will discuss with family and get back with a decision tomorrow. Per normafranco to be reached at [phone] and [phone] (gf). no answer left vm. physical exam intubated on mechanical ventilator mildly sedated obese opening eyes to name follows commands once cannot appreciate JVD mechanical breath soundsl S1 S2 systolic murmur abdomen distended b/l LE edema w/ chronic venous wounds R foot with multiple gangrene dry and wet vent ac/vc 550 16 30% PEEP 6l 7.302/50/77 drips levophed fentanyl versed labs reviewed acetinobacter, pseudomonas, e faecalis, MRSA in wound cultrue imaging cxr RLL opacity echo LVEF 20%, DCM, MR assessment and plan s/p PEA arrest ROSC 4 mins cardiogenic shock acute on chronic hypoxic RF acute on chronic systolic HF small R PLEF COPD with exacerbation PNA gp vs gn HFrEF 20% DCM transaminitis cirrhosis? ascites? ALEXIS likely VMN lactic acidosis meth use leukocytosis type 2 [place] demand ischemia DM? chronic venous stasis wound with multiple bact L testicular mass? foot gangrene b/l UE superficial thrombosis high degree block NSVT ICU SAT SBT titrate levophed to maintain MAP >60 c/w mechanical vent increase diuresis to goal net neg 1L daily c/w sedation, maintain RAAS -2, added methadone, klonopin, seroquel trend lactate, cr, LFT c/w vanc , zosyn switched to layton avoid fever VAP bundle bronchodilators hold GDMT until off pressors send A1C, lipid, tsh wound care daily SAT SBT podiatry consult CTA runoff once stable dobutamine to assist diuresis and inotropy, will dc if NSVT increased keep K 4 Ph 3 Mg 2 Diet jevity to goal DVT PPX lovenox GI PPX protonix Lines RIJ TLC NGT jaffe PICC Full code condition critical prognosis poor critical care time 90 minutes Plan discussed with: Other My Orders Orders - SYEDA VILLALOBOS MD Procedure Category Date Status Time Dobutamine 1000mcg/Ml PHA 02/23/25 In Process (Dobutrex) 13:45 Date of Service: Feb 24, 2025 Billing Provider: SYEDA VILLALOBOS MD Common Visit Codes: [id number] CARE 30-74 MIN SYEDA VILLALOBOS MD Feb 24, 2025 13:16
--- NOTE | 2025-02-24 14:05 | DVHPN2 ---
Progress Note Date Seen: Feb 24, 2025 Resident Creating Document: WILLIAMS DANG RESIDENT Medical Necessity Reason Pt with a Central, PICC or Fol: Yes The following are medically ne: Central Line, Aguilar Catheter Subjective Review of Systems on vent abd soft Patient reports: No new complaints Objective vital signs Vital Sign Date Time Temp Pulse Resp B/P (MAP) Pulse Ox O2 Delivery O2 Flow Rate FiO2 02/24/25 11:54 90 22 94/66 (75) 90 30 02/24/25 08:00 Mechanical Ventilator+ 02/24/25 04:00 98.5 98.5 Total Intake and Output 02/23/25 02/23/25 02/24/25 15:00 23:00 07:00 Intake Total 42.248 ml 991.686 ml 622.246 ml Output Total 2050 ml 1775 ml Balance 42.248 ml -1058.314 ml -1152.754 ml medications Current Medications Medications Dose Ordered Sig/Geraldo Route Start Time Stop Time Status Last Admin Dose Admin Diagnostic Test (Pha) 1 strip ACHS 02/12/25 07:00 02/24/25 12:11 1 STRIP Insulin Human Regular ACHS SC 02/12/25 07:00 02/24/25 12:12 2 UNITS Dextrose 50 ml UD PRN IV 02/11/25 22:15 Acetaminophen 650 mg Q6HP PRN PO 02/11/25 22:15 Tamsulosin HCl 0.4 mg QPM PO 02/12/25 18:00 02/23/25 18:35 0.4 MG Aspirin 81 mg DAILY PO 02/12/25 10:00 02/24/25 11:31 81 MG Nicotine 1 patch DAILY TD 02/13/25 10:00 02/24/25 11:31 1 PATCH Vancomycin HCl 0 ml @ 0 mls/hr PER PHARMACY IV 02/13/25 12:00 Midazolam HCl 100 ml @ 1 mls/hr Q24H IV 02/13/25 14:30 02/24/25 01:04 2 MLS/HR Enoxaparin Sodium 40 mg DAILY SC 02/15/25 10:00 02/24/25 11:34 40 MG Octreotide Acetate 100 mcg TID SUBCUT 02/14/25 14:00 02/24/25 05:28 100 MCG Enteral Nutritional Formula 1,000 ml 30ML/HR GT 02/14/25 12:45 02/23/25 21:21 1,000 ML Sennosides 8.6 mg HS PO 02/14/25 22:00 02/23/25 20:47 8.6 MG Quetiapine Fumarate 25 mg BID PO 02/15/25 10:00 02/24/25 11:31 25 MG Meropenem 50 ml @ 17 mls/hr Q8HR IV 02/15/25 14:00 02/24/25 05:30 17 MLS/HR Pantoprazole Sodium 40 mg DAILY IV 02/17/25 10:00 02/24/25 11:29 40 MG Lactulose 30 ml BID PO 02/17/25 22:00 02/24/25 11:31 30 ML Methadone HCl 10 mg Q8HR PO 02/20/25 14:00 02/24/25 05:28 10 MG Clonazepam 0.5 mg Q12HP PRN PO 02/20/25 13:00 Sodium Chloride 10 ml QSHIFT@10,22 IV 02/21/25 22:00 02/24/25 11:30 10 ML Furosemide 80 mg BIDD IV 02/22/25 08:00 02/24/25 05:30 80 MG Norepinephrine Bitartrate 32 mg/ Sodium Chloride 250 ml @ 0.469 mls/ hr Q24H IV 02/22/25 15:00 02/23/25 21:07 3.281 MLS/HR Fentanyl Citrate 250 ml @ 2.5 mls/hr Q24H IV 02/22/25 19:15 02/23/25 21:21 7.5 MLS/HR Dobutamine HCl/ Dextrose 250 ml @ 27 mls/hr Q9H16M IV 02/23/25 13:45 02/24/25 11:29 27 MLS/HR Vancomycin HCl 250 ml @ 166.667 mls/hr DAILY IV 02/24/25 10:00 02/24/25 11:30 166.667 MLS/HR Albuterol 2.5 mg Q6HR NEB 02/24/25 18:00 Ipratropium [place] 0.5 mg Q6HR NEB 02/24/25 18:00 Examination Patient lying in bed, on mechanical ventilation General: Overweight, afebrile, palor, mucosae are moist Cardiovascular: Regular S1 and S2. No murmurs, gallops or rubs. No JVD elevation. Pedal edema Respiratory: Decreased bilateral air entry on auscultation, mechanically ventilated Abdomen: Soft, nontender, nondistended, normoactive bowel sounds, no rebound tenderness, no organomegaly, no masses. Purulent vesicles on lower abdomen. Penile swelling. Small clots and Aguilar noted. Bilateral lower extremity, cyanosed, bluish, 3+ pedal edema, minimal pulses, cold laboratory and microbiology Laboratory Tests 02/24/25 03:24 Test 02/24/25 03:24 Range/Units Serum Glucose 136 H 74-106 mg/dL Microbiology Date/Time Source Procedure Growth Status 02/13/25 08:15 Nose MRSA Screen - Final Complete 02/11/25 19:38 Blood Blood Culture - Final NO GROWTH AFTER 5 DAYS OF INCUBATION. Complete Labs and/or images reviewed: Labs reviewed by me, Image(s) reviewed by me Problem List/Assessment/Plan Problem List/Assessment/Plan Cirrhosis Acute hypoxic respiratory failure status post intubation Systolic Heart failure with reduced ejection fraction exacerbation NSTEMI Hypertension Hyperkalemia Rule out STI Acute kidney injury Peripheral arterial disease Methamphetamine use dependence Liver ultrasound shows Heterogeneous appearing liver suggesting chronic liver disease. Plan: Recommendation: Bilirubin slightly up, LFTs unremarkable. H&H stable. Monitor CMP in a.m.. Continue lactulose 30 mL b.i.d. and senna. Continue conservative management. CPAP trial as tolerated Hepatitis panel negative Continue tube feedings HIV, syphilis negative. Gonorrhea and chlamydia negative Protonix 40 mg daily Plan discussed with the primary RN in which all questions have been answered Case discussed with Dr. Urena Plan discussed with: Other (RN) Dietary Evaluation Review Comments: CCHO-60 Cardiac diet, texture as tolearated when medically feasible nicotine cessation counseling Follow up with updated lab values Expected Outcomes/Goals: Improved nurition related lab values, free from nicotine WILLIAMS DANG RESIDENT Feb 24, 2025 14:05
[2025-02-24] MEDS: ALBUTEROL SULF 2.5 MG/0.5ML(0.5%) NEB SOLN NEB SCH (18:16)
[2025-02-24] MEDS: IPRATROPIUM BROM 0.5 MG/2.5ML INH SOL NEB SCH (18:16)
--- NOTE | 2025-02-24 23:17 | DVHPN2 ---
Progress Note - Dictate Date Seen: Feb 24, 2025 Medical Necessity Reason Pt with a Central, PICC or Fol: Yes The following are medically ne: Central Line, Aguilar Catheter Subjective Patient was seen and evaluated in follow up in the ICU. Patient is intubated and sedated on ventilator. 30% FiO2. Patient receiving vasopressors. K 3.2, CO2 35, CA 7.9. Chest x-ray shows improved right upper lung aeration without other significant change from the previous study. vital signs Vital Sign Date Time Temp Pulse Resp B/P (MAP) Pulse Ox O2 Delivery O2 Flow Rate FiO2 02/24/25 11:54 90 22 94/66 (75) 90 30 02/24/25 08:00 Mechanical Ventilator+ 02/24/25 04:00 98.5 98.5 Total Intake and Output 02/23/25 02/23/25 02/24/25 15:00 23:00 07:00 Intake Total 42.248 ml 991.686 ml 622.246 ml Output Total 2050 ml 1775 ml Balance 42.248 ml -1058.314 ml -1152.754 ml medications Current Medications Medications Dose Ordered Sig/Geraldo Route Start Time Stop Time Status Last Admin Dose Admin Albuterol 2.5 mg Q4HPRN PRN NEB 02/11/25 22:15 02/24/25 10:25 2.5 MG Ipratropium [place] 0.5 mg Q4HPRN PRN NEB 02/11/25 22:15 02/24/25 10:25 0.5 MG Diagnostic Test (Pha) 1 strip ACHS 02/12/25 07:00 02/24/25 12:11 1 STRIP Insulin Human Regular ACHS SC 02/12/25 07:00 02/24/25 12:12 2 UNITS Dextrose 50 ml UD PRN IV 02/11/25 22:15 Acetaminophen 650 mg Q6HP PRN PO 02/11/25 22:15 Tamsulosin HCl 0.4 mg QPM PO 02/12/25 18:00 02/23/25 18:35 0.4 MG Aspirin 81 mg DAILY PO 02/12/25 10:00 02/24/25 11:31 81 MG Nicotine 1 patch DAILY TD 02/13/25 10:00 02/24/25 11:31 1 PATCH Vancomycin HCl 0 ml @ 0 mls/hr PER PHARMACY IV 02/13/25 12:00 Midazolam HCl 100 ml @ 1 mls/hr Q24H IV 02/13/25 14:30 02/24/25 01:04 2 MLS/HR Enoxaparin Sodium 40 mg DAILY SC 02/15/25 10:00 02/24/25 11:34 40 MG Octreotide Acetate 100 mcg TID SUBCUT 02/14/25 14:00 02/24/25 05:28 100 MCG Enteral Nutritional Formula 1,000 ml 30ML/HR GT 02/14/25 12:45 02/23/25 21:21 1,000 ML Sennosides 8.6 mg HS PO 02/14/25 22:00 02/23/25 20:47 8.6 MG Quetiapine Fumarate 25 mg BID PO 02/15/25 10:00 02/24/25 11:31 25 MG Meropenem 50 ml @ 17 mls/hr Q8HR IV 02/15/25 14:00 02/24/25 05:30 17 MLS/HR Pantoprazole Sodium 40 mg DAILY IV 02/17/25 10:00 02/24/25 11:29 40 MG Lactulose 30 ml BID PO 02/17/25 22:00 02/24/25 11:31 30 ML Methadone HCl 10 mg Q8HR PO 02/20/25 14:00 02/24/25 05:28 10 MG Clonazepam 0.5 mg Q12HP PRN PO 02/20/25 13:00 Sodium Chloride 10 ml QSHIFT@10,22 IV 02/21/25 22:00 02/24/25 11:30 10 ML Furosemide 80 mg BIDD IV 02/22/25 08:00 02/24/25 05:30 80 MG Norepinephrine Bitartrate 32 mg/ Sodium Chloride 250 ml @ 0.469 mls/ hr Q24H IV 02/22/25 15:00 02/23/25 21:07 3.281 MLS/HR Fentanyl Citrate 250 ml @ 2.5 mls/hr Q24H IV 02/22/25 19:15 02/23/25 21:21 7.5 MLS/HR Dobutamine HCl/ Dextrose 250 ml @ 27 mls/hr Q9H16M IV 02/23/25 13:45 02/24/25 11:29 27 MLS/HR Vancomycin HCl 250 ml @ 166.667 mls/hr DAILY IV 02/24/25 10:00 02/24/25 11:30 166.667 MLS/HR objective GENERAL: Ill appearing, intubated on ventilator. EYES: PERRL, EOMI. Anicteric. HENT: Moist mucous membranes. LUNGS: Decreased breath sounds. CARDIOVASCULAR: Regular rate and rhythm. ABDOMEN: Soft, nontender and nondistended. EXTREMITIES: No edema. SKIN: Warm, dry. laboratory and microbiology Laboratory Tests 02/24/25 03:24 Test 02/24/25 03:24 Range/Units Serum Glucose 136 H 74-106 mg/dL Problem List S/P PEA arrest. Cardiogenic shock. Acute hypoxic respiratory failure Systolic Heart failure with reduced ejection fraction. NSTEMI. Hypertension. Hyperkalemia. Small R pleural effusion. COPD with exacerbation. PNA. DCM. Transaminitis. ALEXIS. Lactic acidosis. Meth use. Leukocytosis. Type 2 DE demand ischemia. Chronic venous stasis. Foot gangrene. L/l UE superficial thrombosis. High degree block. NSVT. Assessment/Plan Continued all current supportive medical care. Aspirin. DVT and GI prophylactics. Diuretics with Lasix. IV antibiotics as ordered. Nebulized breathing treatments. Vasopressors for hemodynamic support. Additional plan as per the hospital course. Critical care time of 45 minutes provided to include time spent evaluation of patient at bedside, when appropriate patient/family education for diagnosis, treatment plan, review of pertinent medical information and discussion of care with specialty providers and PCP. Mechanical ventilator parameters, treatment and adjustments have personally been reviewed by me and treatment plan by vp information technology has also been reviewed. Dietary Evaluation Review Comments: CCHO-60 Cardiac diet, texture as tolearated when medically feasible nicotine cessation counseling Follow up with updated lab values Expected Outcomes/Goals: Improved nurition related lab values, free from nicotine Plan discussed with: Other SHARMLIA BENDER MD Feb 24, 2025 12:23
--- NOTE | 2025-02-24 23:54 | DVHPN2 ---
Subjective DOS: 02/24/2025 Patient seen and examined at bedside. Sedated, intubated on mechanical ventilator. Overnight events reviewed. Reviewed: Care Plan, H&P, Labs, Medications, Previous Orders, Radiology Changes from previous H/P or p: No Changes Eyes: No Pain, No Vision change, No Conjunctivae inflammation, No Eyelid inflammation, No Other, No Redness ENT: No Ear pain, No Ear discharge, No Nose pain, No Nose discharge, No Nose congestion, No Mouth pain, No Mouth swelling, No Throat pain, No Throat swelling, No Other Cardiovascular: No Chest Pain, No Palpitations, No Orthopnea, No Paroxysmal Noc. Dyspnea, No Edema, No Lt Headedness, No Other Respiratory: No Cough, No Dry; Shortness of breath, SOB with excertion; No Wheezing, No Hemoptysis, No Pleuritic Pain, No Sputum; Other (SOB at rest) Gastrointestinal: No Nausea, No Vomiting; Abdominal Pain; No Diarrhea, No Constipation, No Melena, No Hematochezia; Other (Abdominal distention) Genitourinary: No Dysuria, No Frequency, No Incontinence, No Hematuria, No Retention, No Other Musculoskeletal: No other, No neck pain, No shoulder pain, No arm pain, No back pain, No hand pain, No leg pain, No foot pain Skin: No Rash, No Lesions, No Jaundice, No Bruising; Other (Lower extremity open wounds) Objective Vitals Vital Signs Date Time Temp Pulse Resp B/P (MAP) Pulse Ox O2 Delivery O2 Flow Rate FiO2 02/24/25 22:15 84 18 80/47 (58) 92 02/24/25 22:13 30 02/24/25 22:00 Mechanical Ventilator+ 02/24/25 20:00 98.4 98.4 Intake/Output Intake and Output 02/24/25 07:00 Intake Total 1656.180 ml Output Total 3825 ml Balance -2168.820 ml Intake Oral 100 ml IV Total 876.180 ml Tube Feeding 590 ml Other 90 ml Output Urine Total 3825 ml Exam Gen.: Patient lying in bed in medical ICU. Sedated, intubated on mechanical ventilator. Head: Normocephalic, atraumatic. Eyes: PERRLA. Ears: Normal external anatomy. Throat: Endotracheal tube and orogastric tube in place. Neck: Supple, trachea midline. Chest: Transmitted breath sounds bilaterally. Decreased air entry bilaterally. No wheezing. Bibasilar crackles. Cardiovascular: Positive S1, positive S2. Regular rate and rhythm. Abdomen: Positive bowel sounds in all 4 quadrants. Soft, nontender, nondistended. : Aguilar in place. Normal external genitalia. Rectal: Deferred. Skin: Warm, dry. Intact. Extremities: 2+ radial pulses bilaterally. No lower extremity edema. Neuro: Sedated General Appearance: Other (intubate, on vent, unable to examined.) HEENT: Atraumatic, PERRLA, EOMI, Mucous membr. moist/pink Neck: Supple Lungs: Clear to auscultation, Normal air movement Cardiovascular: Regular rate, Normal S1, Normal S2, No murmurs, Gallops, Rubs Abdomen: Normal bowel sounds, Soft, No tenderness Neuro: Other (intubate, on vent , unable to examined.) Medications Current Medications Medications Dose Ordered Sig/Geraldo Route Start Time Stop Time Status Last Admin Dose Admin Diagnostic Test (Pha) 1 strip ACHS 02/12/25 07:00 02/24/25 21:05 1 STRIP Insulin Human Regular ACHS SC 02/12/25 07:00 02/24/25 12:12 2 UNITS Dextrose 50 ml UD PRN IV 02/11/25 22:15 Acetaminophen 650 mg Q6HP PRN PO 02/11/25 22:15 Tamsulosin HCl 0.4 mg QPM PO 02/12/25 18:00 02/24/25 18:08 0.4 MG Aspirin 81 mg DAILY PO 02/12/25 10:00 02/24/25 11:31 81 MG Nicotine 1 patch DAILY TD 02/13/25 10:00 02/24/25 11:31 1 PATCH Midazolam HCl 100 ml @ 1 mls/hr Q24H IV 02/13/25 14:30 02/24/25 01:04 2 MLS/HR Enoxaparin Sodium 40 mg DAILY SC 02/15/25 10:00 02/24/25 11:34 40 MG Octreotide Acetate 100 mcg TID SUBCUT 02/14/25 14:00 02/24/25 21:03 100 MCG Enteral Nutritional Formula 1,000 ml 30ML/HR GT 02/14/25 12:45 02/24/25 21:02 1,000 ML Sennosides 8.6 mg HS PO 02/14/25 22:00 02/24/25 21:04 8.6 MG Quetiapine Fumarate 25 mg BID PO 02/15/25 10:00 02/24/25 21:04 25 MG Meropenem 50 ml @ 17 mls/hr Q8HR IV 02/15/25 14:00 02/24/25 21:04 17 MLS/HR Pantoprazole Sodium 40 mg DAILY IV 02/17/25 10:00 02/24/25 11:29 40 MG Lactulose 30 ml BID PO 02/17/25 22:00 02/24/25 21:04 30 ML Methadone HCl 10 mg Q8HR PO 02/20/25 14:00 02/24/25 21:04 10 MG Clonazepam 0.5 mg Q12HP PRN PO 02/20/25 13:00 Sodium Chloride 10 ml QSHIFT@10,22 IV 02/21/25 22:00 02/24/25 21:05 10 ML Furosemide 80 mg BIDD IV 02/22/25 08:00 02/24/25 18:09 80 MG Norepinephrine Bitartrate 32 mg/ Sodium Chloride 250 ml @ 0.469 mls/ hr Q24H IV 02/22/25 15:00 02/23/25 21:07 3.281 MLS/HR Fentanyl Citrate 250 ml @ 2.5 mls/hr Q24H IV 02/22/25 19:15 02/23/25 21:21 7.5 MLS/HR Dobutamine HCl/ Dextrose 250 ml @ 27 mls/hr Q9H16M IV 02/23/25 13:45 02/24/25 21:04 27 MLS/HR Vancomycin HCl 250 ml @ 166.667 mls/hr DAILY IV 02/24/25 10:00 02/24/25 11:30 166.667 MLS/HR Albuterol 2.5 mg Q6HR NEB 02/24/25 18:00 02/24/25 18:16 2.5 MG Ipratropium [place] 0.5 mg Q6HR NEB 02/24/25 18:00 02/24/25 18:16 0.5 MG Laboratory Results Laboratory Tests 02/24/25 03:24 Chemistry Test 02/24/25 03:24 Calcium Level 7.9 mg/dL (8.7-10.4) L Magnesium Level 2.0 mg/dL (1.6-2.6) Phosphorus Level 2.7 mg/dL (2.4-5.1) Urinalysis Test 02/14/25 11:30 02/19/25 13:50 Urine Protein/Creatinine Ratio 0.26 Urine Total Protein < 6.0 mg/dL (1-14) Urine Osmolality 587 mOsm/kg Urine Creatinine 76.95 mg/dL (30.0-125.0) Urine Sodium 79 mmol/L (40-220) Blood Gas Results Test 02/24/25 07:10 Arterial Blood pH 7.493 (7.350-7.450) FiO2 % 30.0 Microbiology Microbiology Date/Time Source Procedure Growth Status 02/13/25 08:15 Nose MRSA Screen - Final Complete 02/11/25 19:38 Blood Blood Culture - Final NO GROWTH AFTER 5 DAYS OF INCUBATION. Complete Assessment/Plan Assessment/Plan Impression: Acute hypoxemic respiratory failure On mechanical ventilator Pleural effusion Atelectasis S/p cardiac arrest Cardiomyopathy Congestive heart failure Obesity Events: Remains on vent support On AC mode; RR 18, VT 500, PEEP 6, FiO2 30% Sedated on Versed, Fentanyl drip. On Seroquel. Chest x-ray shows improved right upper lung aeration without other significant change from the previous study. Labs reviewed; K 3.2, CO2 35, CA 7.9. Pressors for hemodynamic support On Levophed 9 mcg/min Titrate to keep mean arterial pressure greater than 65 mmHg. Taper down pressors as tolerated Patient with on and off bradycardia and NSVT Cardiology recs appreciated On Dobutamine 5 mcg/min for inotropic support Limited chest ultrasound revealed trace left pleural effusion. Moderate right pleural effusion. Off dopamine. Nephrology recs appreciated. Tube feeds for nutritional support Continue antibiotics Wound care. S/p PICC line placement - PICC line is deemed medically necessary for administration of pressors. Nephrology recs appreciated Diurese to euvolemia Monitor renal function Monitor electrolytes. Supplement as necessary. Potassium supplementation Abdomen x-ray shows no e/o bowel obstruction. Labs and imaging reviewed. Rest of plan as noted below. Plan: s/p intubation on mechanical ventilator. On AC mode; RR 18, VT 500, PEEP 6, FiO2 30% Titrate FIO2 to keep O2 saturation above 90%. VAP bundle. Daily ABG and CXR while intubated Patient is s/p right thoracentesis. Continue bronchodilators. Continue antibiotics. Follow up cultures. Monitor WBC count Pressors as necessary for hemodynamic support Titrate to keep mean arterial pressure greater than 65 mmHg. Echo report reviewed; EF approximately 20% Cardiology recs appreciated. On Protonix, Sandostatin Monitor hemoglobin Tube feeds for nutritional support Follow up GI recs Diurese with Lasix Monitor renal function Monitor electrolytes. Supplement as necessary. Monitor ins and outs. Maintain euvolemia. GI prophylaxis -Protonix. DVT prophylaxis - Lovenox. Prognosis: Poor given patient's multiple co-morbidities. Condition: Critical Rest of plan per hospitalist and other consultants. A total of 35 minutes of critical care time was spent reviewing the patient record, examining the patient, making a diagnostic and therapeutic plan, discussing this plan with the medical personnel, following up on diagnostic studies and following the patient for clinical stability excluding any and all procedures. At least 50% of this time was spent in direct, [id number] contact. Thank you, Dr. Blas, for allowing me to participate in this patient's care. Further recommendations will depend on the patient's clinical course. Please do not hesitate to contact me if you have any questions or concerns. This medical document was created using an electronic medical record system with [employer] dictation system. Although these documentations are being carefully reviewed, there may still be some phonetic and typographical changes. The errors are purely typographical, due to imperfection on the software program, and do not reflect any compromise in the patient's medical care. Plan discussed with: Other (LEIGHTON Ward) My Orders Orders - DOLORES VELAZQUEZ MD Procedure Category Date Status Time Abg W/ Co-Ox RT 02/24/25 Logged 06:00 Albuterol Medneb PHA 02/24/25 In Process (Ventolin Medneb) 18:00 Ipratropium Medneb PHA 02/24/25 In Process (Atrovent Medneb) 18:00 Visit Coding Pulmonary Billing Provider: DOLORES VELAZQUEZ MD Date of Service if different f: Feb 24, 2025 Common Visit Codes: 46024-[id number] INP/OBS CARE(HIGH), 32649-[id number] CARE 30-74 MIN DOLORES VELAZQUEZ MD Feb 24, 2025 23:54
[2025-02-25] VITALS (108 sets, daily range): BP systolic 91–128; BP diastolic 47–77; PULSE 78–100; RESP 13–30; TEMP 98.2–99.4; O2SAT 91–99
[2025-02-25 04:22] LABS: Alanine Aminotransferase 32 U/L (7-40); Alkaline Phosphatase 102 U/L (46-116); Anion Gap 8 (5-15); BUN/Creatinine Ratio 15.4 (10.0-20.0); Blood Urea Nitrogen 12 mg/dL (9-23); Sodium 143 mmol/L (136-145); Total Protein 6.0 g/dL (5.7-8.2)
[2025-02-25 04:23] LABS: Albumin 2.9 g/dL (3.2-4.8); Bilirubin, Total 1.6 mg/dL (0.2-1.0); Calcium 8.2 mg/dL (8.7-10.4); Carbon Dioxide 39 mmol/L (20-31); Chloride 96 mmol/L (98-107); Glucose 134 mg/dL (74-106); Potassium 3.5 mmol/L (3.5-5.1)
[2025-02-25 07:29] LABS: Base Excess 10.0 mmol/L (-2.0-3.0)
--- NOTE | 2025-02-25 10:48 | DVHPN2 ---
Progress Note Date Seen: Feb 25, 2025 Resident Creating Document: WILLIAMS DANG RESIDENT Medical Necessity Reason Pt with a Central, PICC or Fol: Yes The following are medically ne: Central Line, Aguilar Catheter Subjective Review of Systems On mechanical ventilation Levophed increased to 11 On dobutamine drip, fentanyl and Versed Abdomen normoactive . On tube feedings Objective vital signs Vital Sign Date Time Temp Pulse Resp B/P (MAP) Pulse Ox O2 Delivery O2 Flow Rate FiO2 02/25/25 09:39 82 18 103/53 (70) 92 35 02/25/25 08:00 Mechanical Ventilator+ 02/25/25 08:00 98.3 98.3 Total Intake and Output 02/24/25 02/24/25 02/25/25 15:00 23:00 07:00 Intake Total 616.938 ml 802.689 ml 606.248 ml Output Total 2050 ml 1500 ml Balance 616.938 ml -1247.311 ml -893.752 ml medications Current Medications Medications Dose Ordered Sig/Geraldo Route Start Time Stop Time Status Last Admin Dose Admin Diagnostic Test (Pha) 1 strip ACHS 02/12/25 07:00 02/25/25 05:27 1 STRIP Insulin Human Regular ACHS SC 02/12/25 07:00 02/24/25 12:12 2 UNITS Dextrose 50 ml UD PRN IV 02/11/25 22:15 Acetaminophen 650 mg Q6HP PRN PO 02/11/25 22:15 Tamsulosin HCl 0.4 mg QPM PO 02/12/25 18:00 02/24/25 18:08 0.4 MG Aspirin 81 mg DAILY PO 02/12/25 10:00 02/25/25 09:46 81 MG Nicotine 1 patch DAILY TD 02/13/25 10:00 02/25/25 09:45 1 PATCH Midazolam HCl 100 ml @ 1 mls/hr Q24H IV 02/13/25 14:30 02/24/25 01:04 2 MLS/HR Enoxaparin Sodium 40 mg DAILY SC 02/15/25 10:00 02/25/25 09:46 40 MG Octreotide Acetate 100 mcg TID SUBCUT 02/14/25 14:00 02/25/25 05:25 100 MCG Enteral Nutritional Formula 1,000 ml 30ML/HR GT 02/14/25 12:45 02/24/25 21:02 1,000 ML Sennosides 8.6 mg HS PO 02/14/25 22:00 02/24/25 21:04 8.6 MG Quetiapine Fumarate 25 mg BID PO 02/15/25 10:00 02/25/25 09:46 25 MG Meropenem 50 ml @ 17 mls/hr Q8HR IV 02/15/25 14:00 02/25/25 05:25 17 MLS/HR Pantoprazole Sodium 40 mg DAILY IV 02/17/25 10:00 02/25/25 09:47 40 MG Lactulose 30 ml BID PO 02/17/25 22:00 02/25/25 09:46 30 ML Methadone HCl 10 mg Q8HR PO 02/20/25 14:00 02/25/25 05:27 10 MG Clonazepam 0.5 mg Q12HP PRN PO 02/20/25 13:00 Sodium Chloride 10 ml QSHIFT@10,22 IV 02/21/25 22:00 02/25/25 09:47 10 ML Furosemide 80 mg BIDD IV 02/22/25 08:00 02/25/25 05:26 80 MG Norepinephrine Bitartrate 32 mg/ Sodium Chloride 250 ml @ 0.469 mls/ hr Q24H IV 02/22/25 15:00 02/23/25 21:07 3.281 MLS/HR Fentanyl Citrate 250 ml @ 2.5 mls/hr Q24H IV 02/22/25 19:15 02/25/25 01:22 5 MLS/HR Dobutamine HCl/ Dextrose 250 ml @ 27 mls/hr Q9H16M IV 02/23/25 13:45 02/25/25 07:16 27 MLS/HR Vancomycin HCl 250 ml @ 166.667 mls/hr DAILY IV 02/24/25 10:00 02/25/25 09:47 166.667 MLS/HR Albuterol 2.5 mg Q6HR NEB 02/24/25 18:00 02/25/25 06:32 2.5 MG Ipratropium [place] 0.5 mg Q6HR NEB 02/24/25 18:00 02/25/25 06:31 0.5 MG Examination Patient lying in bed, on mechanical ventilation General: Overweight, afebrile, palor, mucosae are moist Cardiovascular: Regular S1 and S2. No murmurs, gallops or rubs. No JVD elevation. Resolving Pedal edema Respiratory: Decreased bilateral air entry on auscultation, mechanically ventilated Abdomen: Soft, nontender, nondistended, normoactive bowel sounds, no rebound tenderness, no organomegaly, no masses. Purulent vesicles on lower abdomen. Penile swelling. Small clots and Aguilar noted. Bilateral lower extremity, cyanosed, bluish, 3+ pedal edema, minimal pulses, cold laboratory and microbiology Laboratory Tests 02/25/25 03:05 02/24/25 03:24 Test 02/25/25 03:05 Range/Units Serum Glucose 134 H 74-106 mg/dL Microbiology Date/Time Source Procedure Growth Status 02/13/25 08:15 Nose MRSA Screen - Final Complete 02/11/25 19:38 Blood Blood Culture - Final NO GROWTH AFTER 5 DAYS OF INCUBATION. Complete Labs and/or images reviewed: Labs reviewed by me, Image(s) reviewed by me Problem List/Assessment/Plan Problem List/Assessment/Plan Cirrhosis Acute hypoxic respiratory failure status post intubation Systolic Heart failure with reduced ejection fraction exacerbation NSTEMI Hypertension Hyperkalemia Rule out STI Acute kidney injury Peripheral arterial disease Methamphetamine use dependence Severe protein calorie malnutrition Liver ultrasound shows Heterogeneous appearing liver suggesting chronic liver disease. Plan: Recommendation: Bilirubin stable, LFTs unremarkable. H&H stable. Monitor CMP in a.m.. Continue lactulose 30 mL b.i.d. and senna. Continue conservative management. CPAP trial as tolerated Hepatitis panel negative Continue tube feedings HIV, syphilis negative. Gonorrhea and chlamydia negative Protonix 40 mg daily Plan discussed with the primary RN in which all questions have been answered Case discussed with Dr. Urena Plan discussed with: Other (Nurse) Dietary Evaluation Review Comments: CCHO-60 Cardiac diet, texture as tolearated when medically feasible nicotine cessation counseling Follow up with updated lab values Expected Outcomes/Goals: Improved nurition related lab values, free from nicotine WILLIAMS DANG RESIDENT Feb 25, 2025 10:48
--- NOTE | 2025-02-25 13:53 | DVHPN2 ---
Subjective The patient is seen and examined at bedside. Status post intubation due to shortness of breath. Reviewed: Care Plan, H&P, Labs, Medications, Previous Orders, Radiology Changes from previous H/P or p: No Changes Eyes: No Pain, No Vision change, No Conjunctivae inflammation, No Eyelid inflammation, No Other, No Redness ENT: No Ear pain, No Ear discharge, No Nose pain, No Nose discharge, No Nose congestion, No Mouth pain, No Mouth swelling, No Throat pain, No Throat swelling, No Other Cardiovascular: No Chest Pain, No Palpitations, No Orthopnea, No Paroxysmal Noc. Dyspnea, No Edema, No Lt Headedness, No Other Respiratory: No Cough, No Dry; Shortness of breath, SOB with excertion; No Wheezing, No Hemoptysis, No Pleuritic Pain, No Sputum; Other (SOB at rest) Gastrointestinal: No Nausea, No Vomiting; Abdominal Pain; No Diarrhea, No Constipation, No Melena, No Hematochezia; Other (Abdominal distention) Genitourinary: No Dysuria, No Frequency, No Incontinence, No Hematuria, No Retention, No Other Musculoskeletal: No other, No neck pain, No shoulder pain, No arm pain, No back pain, No hand pain, No leg pain, No foot pain Skin: No Rash, No Lesions, No Jaundice, No Bruising; Other (Lower extremity open wounds) Objective Vitals Vital Signs Date Time Temp Pulse Resp B/P (MAP) Pulse Ox O2 Delivery O2 Flow Rate FiO2 02/25/25 13:36 82 18 108/61 (77) 93 35 02/25/25 12:00 Mechanical Ventilator+ 02/25/25 08:00 98.3 98.3 Intake/Output Intake and Output 02/25/25 07:00 Intake Total 2025.875 ml Output Total 3550 ml Balance -1524.125 ml Intake Oral 150 ml IV Total 1225.875 ml Tube Feeding 650 ml Output Urine Total 3550 ml General Appearance: Other (intubate, on vent, unable to examined.) HEENT: Atraumatic, PERRLA, EOMI, Mucous membr. moist/pink Neck: Supple Lungs: Clear to auscultation, Normal air movement Cardiovascular: Regular rate, Normal S1, Normal S2, No murmurs, Gallops, Rubs Abdomen: Normal bowel sounds, Soft, No tenderness Neuro: Other (intubate, on vent , unable to examined.) Medications Current Medications Medications Dose Ordered Sig/Geraldo Route Start Time Stop Time Status Last Admin Dose Admin Diagnostic Test (Pha) 1 strip ACHS 02/12/25 07:00 02/25/25 11:52 1 STRIP Insulin Human Regular ACHS SC 02/12/25 07:00 02/25/25 11:53 2 UNITS Dextrose 50 ml UD PRN IV 02/11/25 22:15 Acetaminophen 650 mg Q6HP PRN PO 02/11/25 22:15 Tamsulosin HCl 0.4 mg QPM PO 02/12/25 18:00 02/24/25 18:08 0.4 MG Aspirin 81 mg DAILY PO 02/12/25 10:00 02/25/25 09:46 81 MG Nicotine 1 patch DAILY TD 02/13/25 10:00 02/25/25 09:45 1 PATCH Midazolam HCl 100 ml @ 1 mls/hr Q24H IV 02/13/25 14:30 02/24/25 01:04 2 MLS/HR Enoxaparin Sodium 40 mg DAILY SC 02/15/25 10:00 02/25/25 09:46 40 MG Octreotide Acetate 100 mcg TID SUBCUT 02/14/25 14:00 02/25/25 05:25 100 MCG Enteral Nutritional Formula 1,000 ml 30ML/HR GT 02/14/25 12:45 02/24/25 21:02 1,000 ML Sennosides 8.6 mg HS PO 02/14/25 22:00 02/24/25 21:04 8.6 MG Quetiapine Fumarate 25 mg BID PO 02/15/25 10:00 02/25/25 09:46 25 MG Meropenem 50 ml @ 17 mls/hr Q8HR IV 02/15/25 14:00 02/25/25 05:25 17 MLS/HR Pantoprazole Sodium 40 mg DAILY IV 02/17/25 10:00 02/25/25 09:47 40 MG Lactulose 30 ml BID PO 02/17/25 22:00 02/25/25 09:46 30 ML Methadone HCl 10 mg Q8HR PO 02/20/25 14:00 02/25/25 05:27 10 MG Clonazepam 0.5 mg Q12HP PRN PO 02/20/25 13:00 Sodium Chloride 10 ml QSHIFT@10,22 IV 02/21/25 22:00 02/25/25 09:47 10 ML Furosemide 80 mg BIDD IV 02/22/25 08:00 02/25/25 05:26 80 MG Norepinephrine Bitartrate 32 mg/ Sodium Chloride 250 ml @ 0.469 mls/ hr Q24H IV 02/22/25 15:00 02/23/25 21:07 3.281 MLS/HR Fentanyl Citrate 250 ml @ 2.5 mls/hr Q24H IV 02/22/25 19:15 02/25/25 01:22 5 MLS/HR Dobutamine HCl/ Dextrose 250 ml @ 27 mls/hr Q9H16M IV 02/23/25 13:45 02/25/25 07:16 27 MLS/HR Vancomycin HCl 250 ml @ 166.667 mls/hr DAILY IV 02/24/25 10:00 02/25/25 09:47 166.667 MLS/HR Albuterol 2.5 mg Q6HR NEB 02/24/25 18:00 02/25/25 12:16 2.5 MG Ipratropium [place] 0.5 mg Q6HR NEB 02/24/25 18:00 02/25/25 12:16 0.5 MG Laboratory Results Laboratory Tests 02/24/25 03:24 02/25/25 03:05 Chemistry Test 02/25/25 03:05 Albumin 2.9 g/dL (3.2-4.8) L Calcium Level 8.2 mg/dL (8.7-10.4) L Total Protein 6.0 g/dL (5.7-8.2) LFT Test 02/25/25 03:05 Alanine Aminotransferase (ALT) 32 U/L (7-40) Alkaline Phosphatase 102 U/L (46-116) Aspartate Amino Transferase (AST) 47 U/L (13-40) H Total Bilirubin 1.6 mg/dL (0.2-1.0) H Urinalysis Test 02/14/25 11:30 02/19/25 13:50 Urine Protein/Creatinine Ratio 0.26 Urine Total Protein < 6.0 mg/dL (1-14) Urine Osmolality 587 mOsm/kg Urine Creatinine 76.95 mg/dL (30.0-125.0) Urine Sodium 79 mmol/L (40-220) Blood Gas Results Test 02/25/25 07:20 Arterial Blood pH 7.412 (7.350-7.450) FiO2 % 35.0 Microbiology Microbiology Date/Time Source Procedure Growth Status 02/13/25 08:15 Nose MRSA Screen - Final Complete 02/11/25 19:38 Blood Blood Culture - Final NO GROWTH AFTER 5 DAYS OF INCUBATION. Complete Labs and/or images reviewed: Labs reviewed by me Assessment/Plan Assessment/Plan 64 M with HTN, HFrEF 20%, DM, ascites, meth use admitted for SOB, later was found in respiratory distress, intubated and had PEA arrest, ROSC in 4 minutes. 02/14 s/p thora, 2 L out. switched to lasix drip. start TF. POCUS done, minimal tapable pocket in abdomen. wound culture with prelim growth. wound care 02/15 wound culture back, changed abx to vanc and layton, starting oral meds for weaning, patient previously agitated, to decrease prevent self extubation. lasix drip switched to 60 BID. SAT SBT tomorrow. 02/16 hold diuresis today, POCUS with improving IVC, off sedation, not waking up still. 02/17 adding diamox, metabolic alkalosis, decrease RR, holding methadone and klonazepam, off sedation, opening eyes to name, not following command, c/w SAT SBT. 02/18 off sedation and calm 02/19 continues to remain intubated and off sedation 02/20 agitated, restarting methadone and clonazepam. will d/w fam regarding trach if he continues to be difficult to sedate. positive balance, readding lasix, discontinueing fluid. 02/21 POCUS done, IVC >2cm with no excursion, severely reduced EF. net positive the past 2 days, doubling lasix dose. back on pressor. follows commands once. once stable will get CT angio to see if he will need intervention. podiatry consult 02/22 b/l UE superficial thrombus, no deep vein thrombus, dc tlc, continue to titrate off pressor, c/w diuresis. daily SAT SBT. i called family but went to . plan for extubation vs trach, possibly without full mental status if doing well during cpap 02/23 seen today, still on sedation. on and off having bradycardia and NSVT. cardio reconsulted today. starting dobutamine, c/w lasix acetazolamide 02/24 adequate diuresis, still on dobu and levo, no increase ectopy. no mental status. called fam member but went to again. consult for trach and peg. 02/25: Still on dobutamine and levophed. Waiting for trach and PEG. s/p PEA arrest ROSC 4 mins cardiogenic shock acute on chronic hypoxic RF acute on chronic systolic HF small R PLEF COPD with exacerbation PNA gp vs gn HFrEF 20% DCM transaminitis cirrhosis? ascites? ALEXIS likely VMN lactic acidosis meth use leukocytosis type 2 CT demand ischemia DM? chronic venous stasis wound with multiple bact L testicular mass? foot gangrene b/l UE superficial thrombosis high degree block NSVT ICU SAT SBT titrate levophed to maintain MAP >60 c/w mechanical vent increase diuresis to goal net neg 1L daily c/w sedation, maintain RAAS -2, added methadone, klonopin, seroquel trend lactate, cr, LFT c/w vanc , zosyn switched to [place] avoid fever VAP bundle bronchodilators hold GDMT until off pressors send A1C, lipid, tsh wound care daily SAT SBT podiatry consult CTA runoff once stable dobutamine to assist diuresis and inotropy, will dc if NSVT increased keep K 4 Ph 3 Mg 2 Diet jevity to goal DVT PPX lovenox GI PPX protonix Lines RIJ TLC NGT jaffe PICC Full code condition critical prognosis poor Critical care spent for this case is 37 minutes. The patient remain full code. This medical document was created using an electronic medical record system with [employer] computerized dictation system. Although this document has been carefully reviewed, there may still be some phonetic and typographical errors. These areas are purely typographical due to imperfections of the software programs, and do not reflect any compromise in the patient's medical care. Plan discussed with: Patient Date of Service: Feb 25, 2025 Billing Provider: RAYRAY CLINE MD Common Visit Codes: [id number] INP/OBS CARE(HIGH) RAYRAY CLINE MD Feb 25, 2025 13:53
--- NOTE | 2025-02-25 21:29 | DVH ---
CHEST RADIOGRAPH INDICATION: NEW OG TUBE PLACEMENT TECHNIQUE: Single frontal view of the chest was obtained COMPARISON: XY CHEST XRAY 1 VIEW on DOS: 02/23/25, XY CHEST PORTABLE on DOS: 02/22/25, XY CHEST PORTABLE on DOS: 02/21/25 FINDINGS: Lines and Tubes: Endotracheal tube 3.1 cm above the veronica. Enteric tube in the stomach below the left diaphragm. To be in central line in place on the right with the tip in the superior vena cava above the right atrium. Lungs: Airspace disease is noted in both lung bases possible small right pleural effusion Pleura: No effusion. No pneumothorax. Cardiomediastinal contours: Unremarkable Bones: No acute osseous abnormality. IMPRESSION: 1. Endotracheal tube in place 3.1 cm above the veronica. 2. Enteric tube below the left diaphragm in the stomach 3. Central line in place in the right internal jugular vein with the tip superior vena cava above the right atrium. 4. Bibasilar airspace disease and pleural effusions.
--- NOTE | 2025-02-25 22:48 | DVHPN2 ---
Progress Note - Dictate Date Seen: Feb 25, 2025 Medical Necessity Reason Pt with a Central, PICC or Fol: Yes The following are medically ne: Central Line, Aguilar Catheter Subjective Patient was seen and evaluated in follow up in the ICU. Patient is intubated and sedated on ventilator. 35% FiO2. Patient maintained on vasopressors. CO2 39, CA 8.2, AST 47. vital signs Vital Sign Date Time Temp Pulse Resp B/P (MAP) Pulse Ox O2 Delivery O2 Flow Rate FiO2 02/25/25 12:16 86 18 107/60 (76) 92 35 02/25/25 12:00 Mechanical Ventilator+ 02/25/25 08:00 98.3 98.3 Total Intake and Output 02/24/25 02/24/25 02/25/25 15:00 23:00 07:00 Intake Total 616.938 ml 802.689 ml 606.248 ml Output Total 2050 ml 1500 ml Balance 616.938 ml -1247.311 ml -893.752 ml medications Current Medications Medications Dose Ordered Sig/Geraldo Route Start Time Stop Time Status Last Admin Dose Admin Diagnostic Test (Pha) 1 strip ACHS 02/12/25 07:00 02/25/25 11:52 1 STRIP Insulin Human Regular ACHS SC 02/12/25 07:00 02/25/25 11:53 2 UNITS Dextrose 50 ml UD PRN IV 02/11/25 22:15 Acetaminophen 650 mg Q6HP PRN PO 02/11/25 22:15 Tamsulosin HCl 0.4 mg QPM PO 02/12/25 18:00 02/24/25 18:08 0.4 MG Aspirin 81 mg DAILY PO 02/12/25 10:00 02/25/25 09:46 81 MG Nicotine 1 patch DAILY TD 02/13/25 10:00 02/25/25 09:45 1 PATCH Midazolam HCl 100 ml @ 1 mls/hr Q24H IV 02/13/25 14:30 02/24/25 01:04 2 MLS/HR Enoxaparin Sodium 40 mg DAILY SC 02/15/25 10:00 02/25/25 09:46 40 MG Octreotide Acetate 100 mcg TID SUBCUT 02/14/25 14:00 02/25/25 05:25 100 MCG Enteral Nutritional Formula 1,000 ml 30ML/HR GT 02/14/25 12:45 02/24/25 21:02 1,000 ML Sennosides 8.6 mg HS PO 02/14/25 22:00 02/24/25 21:04 8.6 MG Quetiapine Fumarate 25 mg BID PO 02/15/25 10:00 02/25/25 09:46 25 MG Meropenem 50 ml @ 17 mls/hr Q8HR IV 02/15/25 14:00 02/25/25 05:25 17 MLS/HR Pantoprazole Sodium 40 mg DAILY IV 02/17/25 10:00 02/25/25 09:47 40 MG Lactulose 30 ml BID PO 02/17/25 22:00 02/25/25 09:46 30 ML Methadone HCl 10 mg Q8HR PO 02/20/25 14:00 02/25/25 05:27 10 MG Clonazepam 0.5 mg Q12HP PRN PO 02/20/25 13:00 Sodium Chloride 10 ml QSHIFT@10,22 IV 02/21/25 22:00 02/25/25 09:47 10 ML Furosemide 80 mg BIDD IV 02/22/25 08:00 02/25/25 05:26 80 MG Norepinephrine Bitartrate 32 mg/ Sodium Chloride 250 ml @ 0.469 mls/ hr Q24H IV 02/22/25 15:00 02/23/25 21:07 3.281 MLS/HR Fentanyl Citrate 250 ml @ 2.5 mls/hr Q24H IV 02/22/25 19:15 02/25/25 01:22 5 MLS/HR Dobutamine HCl/ Dextrose 250 ml @ 27 mls/hr Q9H16M IV 02/23/25 13:45 02/25/25 07:16 27 MLS/HR Vancomycin HCl 250 ml @ 166.667 mls/hr DAILY IV 02/24/25 10:00 02/25/25 09:47 166.667 MLS/HR Albuterol 2.5 mg Q6HR NEB 02/24/25 18:00 02/25/25 12:16 2.5 MG Ipratropium [place] 0.5 mg Q6HR NEB 02/24/25 18:00 02/25/25 12:16 0.5 MG objective GENERAL: Ill appearing, intubated on ventilator. EYES: PERRL, EOMI. Anicteric. HENT: Moist mucous membranes. LUNGS: Decreased breath sounds. CARDIOVASCULAR: Regular rate and rhythm. ABDOMEN: Soft, nontender and nondistended. EXTREMITIES: No edema. SKIN: Warm, dry. laboratory and microbiology Laboratory Tests 02/25/25 03:05 02/24/25 03:24 Test 02/25/25 03:05 Range/Units Serum Glucose 134 H 74-106 mg/dL Problem List S/P PEA arrest. Cardiogenic shock. Acute hypoxic respiratory failure Systolic Heart failure with reduced ejection fraction. NSTEMI. Hypertension. Hyperkalemia. Small R pleural effusion. COPD with exacerbation. PNA. DCM. Transaminitis. ALEXIS. Lactic acidosis. Meth use. Leukocytosis. Type 2 NV demand ischemia. Chronic venous stasis. Foot gangrene. L/l UE superficial thrombosis. High degree block. NSVT. Assessment/Plan Continued all current supportive medical care. Aspirin. DVT and GI prophylactics. Diuretics with Lasix. IV antibiotics as ordered. Nebulized breathing treatments. Vasopressors for hemodynamic support. Additional plan as per the hospital course. Critical care time of 45 minutes provided to include time spent evaluation of patient at bedside, when appropriate patient/family education for diagnosis, treatment plan, review of pertinent medical information and discussion of care with specialty providers and PCP. Mechanical ventilator parameters, treatment and adjustments have personally been reviewed by me and treatment plan by film developing machine operator has also been reviewed. Dietary Evaluation Review Comments: [facility]60 Cardiac diet, texture as tolearated when medically feasible nicotine cessation counseling Follow up with updated lab values Expected Outcomes/Goals: Improved nurition related lab values, free from nicotine Plan discussed with: SHARMILA Padilla MD Feb 25, 2025 13:14
--- NOTE | 2025-02-25 23:12 | DVHPN2 ---
Subjective DOS: 02/25/2025 Patient seen and examined at bedside. Sedated, intubated on mechanical ventilator. Overnight events reviewed. Reviewed: Care Plan, H&P, Labs, Medications, Previous Orders, Radiology Changes from previous H/P or p: No Changes Eyes: No Pain, No Vision change, No Conjunctivae inflammation, No Eyelid inflammation, No Other, No Redness ENT: No Ear pain, No Ear discharge, No Nose pain, No Nose discharge, No Nose congestion, No Mouth pain, No Mouth swelling, No Throat pain, No Throat swelling, No Other Cardiovascular: No Chest Pain, No Palpitations, No Orthopnea, No Paroxysmal Noc. Dyspnea, No Edema, No Lt Headedness, No Other Respiratory: No Cough, No Dry; Shortness of breath, SOB with excertion; No Wheezing, No Hemoptysis, No Pleuritic Pain, No Sputum; Other (SOB at rest) Gastrointestinal: No Nausea, No Vomiting; Abdominal Pain; No Diarrhea, No Constipation, No Melena, No Hematochezia; Other (Abdominal distention) Genitourinary: No Dysuria, No Frequency, No Incontinence, No Hematuria, No Retention, No Other Musculoskeletal: No other, No neck pain, No shoulder pain, No arm pain, No back pain, No hand pain, No leg pain, No foot pain Skin: No Rash, No Lesions, No Jaundice, No Bruising; Other (Lower extremity open wounds) Objective Vitals Vital Signs Date Time Temp Pulse Resp B/P (MAP) Pulse Ox O2 Delivery O2 Flow Rate FiO2 02/25/25 23:00 82 18 116/64 (81) 94 02/25/25 22:12 35 02/25/25 22:00 Mechanical Ventilator+ 02/25/25 20:00 99.4 99.4 Intake/Output Intake and Output 02/25/25 07:00 Intake Total 2025.875 ml Output Total 3550 ml Balance -1524.125 ml Intake Oral 150 ml IV Total 1225.875 ml Tube Feeding 650 ml Output Urine Total 3550 ml Exam Gen.: Patient lying in bed in medical ICU. Sedated, intubated on mechanical ventilator. Head: Normocephalic, atraumatic. Eyes: PERRLA. Ears: Normal external anatomy. Throat: Endotracheal tube and orogastric tube in place. Neck: Supple, trachea midline. Chest: Transmitted breath sounds bilaterally. Decreased air entry bilaterally. No wheezing. Bibasilar crackles. Cardiovascular: Positive S1, positive S2. Regular rate and rhythm. Abdomen: Positive bowel sounds in all 4 quadrants. Soft, nontender, nondistended. : Aguilar in place. Normal external genitalia. Rectal: Deferred. Skin: Warm, dry. Intact. Extremities: 2+ radial pulses bilaterally. No lower extremity edema. Neuro: Sedated General Appearance: Other (intubate, on vent, unable to examined.) HEENT: Atraumatic, PERRLA, EOMI, Mucous membr. moist/pink Neck: Supple Lungs: Clear to auscultation, Normal air movement Cardiovascular: Regular rate, Normal S1, Normal S2, No murmurs, Gallops, Rubs Abdomen: Normal bowel sounds, Soft, No tenderness Neuro: Other (intubate, on vent , unable to examined.) Medications Current Medications Medications Dose Ordered Sig/Geraldo Route Start Time Stop Time Status Last Admin Dose Admin Diagnostic Test (Pha) 1 strip ACHS 02/12/25 07:00 02/25/25 22:00 1 STRIP Insulin Human Regular ACHS SC 02/12/25 07:00 02/25/25 22:37 2 UNITS Dextrose 50 ml UD PRN IV 02/11/25 22:15 Acetaminophen 650 mg Q6HP PRN PO 02/11/25 22:15 Tamsulosin HCl 0.4 mg QPM PO 02/12/25 18:00 02/25/25 17:23 0.4 MG Aspirin 81 mg DAILY PO 02/12/25 10:00 02/25/25 09:46 81 MG Nicotine 1 patch DAILY TD 02/13/25 10:00 02/25/25 09:45 1 PATCH Midazolam HCl 100 ml @ 1 mls/hr Q24H IV 02/13/25 14:30 02/25/25 17:22 1 MLS/HR Enoxaparin Sodium 40 mg DAILY SC 02/15/25 10:00 02/25/25 09:46 40 MG Octreotide Acetate 100 mcg TID SUBCUT 02/14/25 14:00 02/25/25 22:26 100 MCG Enteral Nutritional Formula 1,000 ml 30ML/HR GT 02/14/25 12:45 02/24/25 21:02 1,000 ML Sennosides 8.6 mg HS PO 02/14/25 22:00 02/25/25 22:24 8.6 MG Quetiapine Fumarate 25 mg BID PO 02/15/25 10:00 02/25/25 22:24 25 MG Meropenem 50 ml @ 17 mls/hr Q8HR IV 02/15/25 14:00 02/25/25 22:23 17 MLS/HR Pantoprazole Sodium 40 mg DAILY IV 02/17/25 10:00 02/25/25 09:47 40 MG Lactulose 30 ml BID PO 02/17/25 22:00 02/25/25 22:23 30 ML Methadone HCl 10 mg Q8HR PO 02/20/25 14:00 02/25/25 22:24 10 MG Clonazepam 0.5 mg Q12HP PRN PO 02/20/25 13:00 Sodium Chloride 10 ml QSHIFT@10,22 IV 02/21/25 22:00 02/25/25 22:23 10 ML Furosemide 80 mg BIDD IV 02/22/25 08:00 02/25/25 17:23 80 MG Norepinephrine Bitartrate 32 mg/ Sodium Chloride 250 ml @ 0.469 mls/ hr Q24H IV 02/22/25 15:00 02/23/25 21:07 3.281 MLS/HR Fentanyl Citrate 250 ml @ 2.5 mls/hr Q24H IV 02/22/25 19:15 02/25/25 01:22 5 MLS/HR Dobutamine HCl/ Dextrose 250 ml @ 27 mls/hr Q9H16M IV 02/23/25 13:45 02/25/25 17:22 27 MLS/HR Vancomycin HCl 250 ml @ 166.667 mls/hr DAILY IV 02/24/25 10:00 02/25/25 09:47 166.667 MLS/HR Albuterol 2.5 mg Q6HR NEB 02/24/25 18:00 02/25/25 18:23 2.5 MG Ipratropium [place] 0.5 mg Q6HR NEB 02/24/25 18:00 02/25/25 18:23 0.5 MG Laboratory Results Laboratory Tests 02/24/25 03:24 02/25/25 03:05 Chemistry Test 02/25/25 03:05 Albumin 2.9 g/dL (3.2-4.8) L Calcium Level 8.2 mg/dL (8.7-10.4) L Total Protein 6.0 g/dL (5.7-8.2) LFT Test 02/25/25 03:05 Alanine Aminotransferase (ALT) 32 U/L (7-40) Alkaline Phosphatase 102 U/L (46-116) Aspartate Amino Transferase (AST) 47 U/L (13-40) H Total Bilirubin 1.6 mg/dL (0.2-1.0) H Urinalysis Test 02/14/25 11:30 02/19/25 13:50 Urine Protein/Creatinine Ratio 0.26 Urine Total Protein < 6.0 mg/dL (1-14) Urine Osmolality 587 mOsm/kg Urine Creatinine 76.95 mg/dL (30.0-125.0) Urine Sodium 79 mmol/L (40-220) Blood Gas Results Test 02/25/25 07:20 Arterial Blood pH 7.412 (7.350-7.450) FiO2 % 35.0 Microbiology Microbiology Date/Time Source Procedure Growth Status 02/13/25 08:15 Nose MRSA Screen - Final Complete 02/11/25 19:38 Blood Blood Culture - Final NO GROWTH AFTER 5 DAYS OF INCUBATION. Complete Assessment/Plan Assessment/Plan Impression: Acute hypoxemic respiratory failure On mechanical ventilator Pleural effusion Atelectasis S/p cardiac arrest Cardiomyopathy Congestive heart failure Obesity Events: Remains on vent support On AC mode; RR 18, VT 500, PEEP 6, FiO2 35% Sedated on Versed, Fentanyl drip. On Seroquel. ABG reviewed, compensated. Pressors for hemodynamic support On Levophed 11 mcg/min Titrate to keep mean arterial pressure greater than 65 mmHg. Taper down pressors as tolerated - slightly increased pressor requirements Patient with on and off bradycardia and NSVT Cardiology recs appreciated On Dobutamine 5 mcg/min for inotropic support Plan for pacemaker placement. Limited chest ultrasound revealed trace left pleural effusion. Moderate right pleural effusion. Off dopamine. Nephrology recs appreciated. Tube feeds for nutritional support Continue antibiotics Wound care. S/p PICC line placement - PICC line is deemed medically necessary for administration of pressors. Nephrology recs appreciated Diurese to euvolemia Monitor renal function Monitor electrolytes. Supplement as necessary. Potassium supplementation K 3.5, Ca of 8.2. Abdomen x-ray shows no e/o bowel obstruction. Labs and imaging reviewed. Rest of plan as noted below. Plan: s/p intubation on mechanical ventilator. On AC mode; RR 18, VT 500, PEEP 6, FiO2 35% Titrate FIO2 to keep O2 saturation above 90%. VAP bundle. Daily ABG and CXR while intubated Patient is s/p right thoracentesis. Continue bronchodilators. Continue antibiotics. Follow up cultures. Monitor WBC count Pressors as necessary for hemodynamic support Titrate to keep mean arterial pressure greater than 65 mmHg. Echo report reviewed; EF approximately 20% Cardiology recs appreciated. On Protonix, Sandostatin Monitor hemoglobin Tube feeds for nutritional support Follow up GI recs Diurese with Lasix Monitor renal function Monitor electrolytes. Supplement as necessary. Monitor ins and outs. Maintain euvolemia. GI prophylaxis -Protonix. DVT prophylaxis - Lovenox. Prognosis: Poor given patient's multiple co-morbidities. Condition: Critical Rest of plan per hospitalist and other consultants. A total of 35 minutes of critical care time was spent reviewing the patient record, examining the patient, making a diagnostic and therapeutic plan, discussing this plan with the medical personnel, following up on diagnostic studies and following the patient for clinical stability excluding any and all procedures. At least 50% of this time was spent in direct, [id number] contact. Thank you, Dr. Blas, for allowing me to participate in this patient's care. Further recommendations will depend on the patient's clinical course. Please do not hesitate to contact me if you have any questions or concerns. This medical document was created using an electronic medical record system with [employer] dictation system. Although these documentations are being carefully reviewed, there may still be some phonetic and typographical changes. The errors are purely typographical, due to imperfection on the software program, and do not reflect any compromise in the patient's medical care. Plan discussed with: Other (LEIGHTON Lewis) Visit Coding Pulmonary Billing Provider: DOLORES VELAZQUEZ MD Date of Service if different f: Feb 25, 2025 Common Visit Codes: [id number] INP/OBS CARE(HIGH), [id number] CARE 30-74 MIN DOLORES VELAZQUEZ MD Feb 25, 2025 23:12
[2025-02-26] VITALS (108 sets, daily range): BP systolic 103–127; BP diastolic 54–74; PULSE 73–104; RESP 13–21; TEMP 97.2–99.2; O2SAT 91–100
[2025-02-26 04:44] LABS: Hematocrit 38.5 % (41.0-53.0); Hemoglobin 12.7 g/dL (13.5-17.5); Mean Corpuscular Hemoglobin 30.4 pg (28.0-32.0); Mean Corpuscular Volume 92.6 fL (80.0-100.0); Nucleated Red Blood Cells % 0.1 %
[2025-02-26 04:58] LABS: Potassium 3.5 mmol/L (3.5-5.1); Sodium 141 mmol/L (136-145)
[2025-02-26 05:04] LABS: BUN/Creatinine Ratio 22.4 (10.0-20.0); Blood Urea Nitrogen 13 mg/dL (9-23)
[2025-02-26 05:06] LABS: Anion Gap 5.99999 (5-15); Calcium 8.2 mg/dL (8.7-10.4); Chloride 95 mmol/L (98-107); Glucose 133 mg/dL (74-106)
[2025-02-26 05:07] LABS: Carbon Dioxide > 40 mmol/L (20-31)
[2025-02-26 08:21] LABS: Base Excess 15.7 mmol/L (-2.0-3.0)
--- NOTE | 2025-02-26 12:42 | DVHPN2 ---
Subjective The patient is seen and examined at bedside. Status post intubation due to shortness of breath. No change overnight. Will get thoracocentesis at bedside by dr Vizcaino. Reviewed: Care Plan, H&P, Labs, Medications, Previous Orders, Radiology Changes from previous H/P or p: No Changes Eyes: No Pain, No Vision change, No Conjunctivae inflammation, No Eyelid inflammation, No Other, No Redness ENT: No Ear pain, No Ear discharge, No Nose pain, No Nose discharge, No Nose congestion, No Mouth pain, No Mouth swelling, No Throat pain, No Throat swelling, No Other Cardiovascular: No Chest Pain, No Palpitations, No Orthopnea, No Paroxysmal Noc. Dyspnea, No Edema, No Lt Headedness, No Other Respiratory: No Cough, No Dry; Shortness of breath, SOB with excertion; No Wheezing, No Hemoptysis, No Pleuritic Pain, No Sputum; Other (SOB at rest) Gastrointestinal: No Nausea, No Vomiting; Abdominal Pain; No Diarrhea, No Constipation, No Melena, No Hematochezia; Other (Abdominal distention) Genitourinary: No Dysuria, No Frequency, No Incontinence, No Hematuria, No Retention, No Other Musculoskeletal: No other, No neck pain, No shoulder pain, No arm pain, No back pain, No hand pain, No leg pain, No foot pain Skin: No Rash, No Lesions, No Jaundice, No Bruising; Other (Lower extremity open wounds) Objective Vitals Vital Signs Date Time Temp Pulse Resp B/P (MAP) Pulse Ox O2 Delivery O2 Flow Rate FiO2 02/26/25 11:52 87 18 117/63 (81) 92 35 02/26/25 10:01 Mechanical Ventilator+ 02/26/25 08:00 99.2 99.2 Intake/Output Intake and Output 02/26/25 07:00 Intake Total 1719.457 ml Output Total 3150 ml Balance -1430.543 ml Intake Oral 326 ml IV Total 1166.457 ml Tube Feeding 227 ml Output Urine Total 3150 ml General Appearance: Other (intubate, on vent, unable to examined.) HEENT: Atraumatic, PERRLA, EOMI, Mucous membr. moist/pink Neck: Supple Lungs: Clear to auscultation, Normal air movement Cardiovascular: Regular rate, Normal S1, Normal S2, No murmurs, Gallops, Rubs Abdomen: Normal bowel sounds, Soft, No tenderness Neuro: Other (intubate, on vent , unable to examined.) Medications Current Medications Medications Dose Ordered Sig/Geraldo Route Start Time Stop Time Status Last Admin Dose Admin Diagnostic Test (Pha) 1 strip ACHS 02/12/25 07:00 02/26/25 11:21 1 STRIP Insulin Human Regular ACHS SC 02/12/25 07:00 02/26/25 06:17 2 UNITS Dextrose 50 ml UD PRN IV 02/11/25 22:15 Acetaminophen 650 mg Q6HP PRN PO 02/11/25 22:15 Tamsulosin HCl 0.4 mg QPM PO 02/12/25 18:00 02/25/25 17:23 0.4 MG Aspirin 81 mg DAILY PO 02/12/25 10:00 02/26/25 09:16 81 MG Nicotine 1 patch DAILY TD 02/13/25 10:00 02/26/25 09:17 1 PATCH Midazolam HCl 100 ml @ 1 mls/hr Q24H IV 02/13/25 14:30 02/25/25 17:22 1 MLS/HR Enoxaparin Sodium 40 mg DAILY SC 02/15/25 10:00 02/26/25 09:15 40 MG Octreotide Acetate 100 mcg TID SUBCUT 02/14/25 14:00 02/26/25 06:05 100 MCG Enteral Nutritional Formula 1,000 ml 30ML/HR GT 02/14/25 12:45 02/24/25 21:02 1,000 ML Sennosides 8.6 mg HS PO 02/14/25 22:00 02/25/25 22:24 8.6 MG Quetiapine Fumarate 25 mg BID PO 02/15/25 10:00 02/26/25 09:15 25 MG Meropenem 50 ml @ 17 mls/hr Q8HR IV 02/15/25 14:00 02/26/25 06:02 17 MLS/HR Pantoprazole Sodium 40 mg DAILY IV 02/17/25 10:00 02/26/25 09:16 40 MG Lactulose 30 ml BID PO 02/17/25 22:00 02/26/25 09:14 30 ML Methadone HCl 10 mg Q8HR PO 02/20/25 14:00 02/26/25 06:05 10 MG Clonazepam 0.5 mg Q12HP PRN PO 02/20/25 13:00 Sodium Chloride 10 ml QSHIFT@10,22 IV 02/21/25 22:00 02/26/25 09:18 10 ML Furosemide 80 mg BIDD IV 02/22/25 08:00 02/26/25 06:03 80 MG Norepinephrine Bitartrate 32 mg/ Sodium Chloride 250 ml @ 0.469 mls/ hr Q24H IV 02/22/25 15:00 02/26/25 02:11 4.688 MLS/HR Fentanyl Citrate 250 ml @ 2.5 mls/hr Q24H IV 02/22/25 19:15 02/25/25 01:22 5 MLS/HR Dobutamine HCl/ Dextrose 250 ml @ 27 mls/hr Q9H16M IV 02/23/25 13:45 02/26/25 04:17 27 MLS/HR Vancomycin HCl 250 ml @ 166.667 mls/hr DAILY IV 02/24/25 10:00 02/26/25 09:16 166.667 MLS/HR Albuterol 2.5 mg Q6HR NEB 02/24/25 18:00 02/26/25 11:51 2.5 MG Ipratropium [place] 0.5 mg Q6HR NEB 02/24/25 18:00 02/26/25 11:51 0.5 MG Laboratory Results Laboratory Tests 02/26/25 04:20 Chemistry Test 02/26/25 04:20 Calcium Level 8.2 mg/dL (8.7-10.4) L Urinalysis Test 02/14/25 11:30 02/19/25 13:50 Urine Protein/Creatinine Ratio 0.26 Urine Total Protein < 6.0 mg/dL (1-14) Urine Osmolality 587 mOsm/kg Urine Creatinine 76.95 mg/dL (30.0-125.0) Urine Sodium 79 mmol/L (40-220) Blood Gas Results Test 02/26/25 07:22 Arterial Blood pH 7.478 (7.350-7.450) FiO2 % 35.0 Microbiology Microbiology Date/Time Source Procedure Growth Status 02/13/25 08:15 Nose MRSA Screen - Final Complete 02/11/25 19:38 Blood Blood Culture - Final NO GROWTH AFTER 5 DAYS OF INCUBATION. Complete Labs and/or images reviewed: Labs reviewed by me Assessment/Plan Assessment/Plan 64 M with HTN, HFrEF 20%, DM, ascites, meth use admitted for SOB, later was found in respiratory distress, intubated and had PEA arrest, ROSC in 4 minutes. 02/14 s/p thora, 2 L out. switched to lasix drip. start TF. POCUS done, minimal tapable pocket in abdomen. wound culture with prelim growth. wound care 02/15 wound culture back, changed abx to vanc and layton, starting oral meds for weaning, patient previously agitated, to decrease prevent self extubation. lasix drip switched to 60 BID. SAT SBT tomorrow. 02/16 hold diuresis today, POCUS with improving IVC, off sedation, not waking up still. 02/17 adding diamox, metabolic alkalosis, decrease RR, holding methadone and klonazepam, off sedation, opening eyes to name, not following command, c/w SAT SBT. 02/18 off sedation and calm 02/19 continues to remain intubated and off sedation 02/20 agitated, restarting methadone and clonazepam. will d/w fam regarding trach if he continues to be difficult to sedate. positive balance, readding lasix, discontinueing fluid. 02/21 POCUS done, IVC >2cm with no excursion, severely reduced EF. net positive the past 2 days, doubling lasix dose. back on pressor. follows commands once. once stable will get CT angio to see if he will need intervention. podiatry consult 02/22 b/l UE superficial thrombus, no deep vein thrombus, dc tlc, continue to titrate off pressor, c/w diuresis. daily SAT SBT. i called family but went to . plan for extubation vs trach, possibly without full mental status if doing well during cpap 02/23 seen today, still on sedation. on and off having bradycardia and NSVT. cardio reconsulted today. starting dobutamine, c/w lasix acetazolamide 02/24 adequate diuresis, still on dobu and levo, no increase ectopy. no mental status. called fam member but went to again. consult for trach and peg. 02/25: Still on dobutamine and levophed. Waiting for trach and PEG. 02/26: Waiting for bedside thoracocentesis, continue vent support. Continue dobutamine and levophed. s/p PEA arrest ROSC 4 mins cardiogenic shock acute on chronic hypoxic RF acute on chronic systolic HF small R PLEF COPD with exacerbation PNA gp vs gn HFrEF 20% DCM transaminitis cirrhosis? ascites? ALEXIS likely VMN lactic acidosis meth use leukocytosis type 2 [place] demand ischemia DM? chronic venous stasis wound with multiple bact L testicular mass? foot gangrene b/l UE superficial thrombosis high degree block NSVT ICU SAT SBT titrate levophed to maintain MAP >60 c/w mechanical vent increase diuresis to goal net neg 1L daily c/w sedation, maintain RAAS -2, added methadone, klonopin, seroquel trend lactate, cr, LFT c/w vanc , zosyn switched to layton avoid fever VAP bundle bronchodilators hold GDMT until off pressors send A1C, lipid, tsh wound care daily SAT SBT podiatry consult CTA runoff once stable dobutamine to assist diuresis and inotropy, will dc if NSVT increased keep K 4 Ph 3 Mg 2 Diet jevity to goal DVT PPX lovenox GI PPX protonix Lines RIJ TLC NGT jaffe PICC Full code condition critical prognosis poor Critical care spent for this case is 37 minutes. The patient remain full code. This medical document was created using an electronic medical record system with [employer] direct computerized dictation system. Although this document has been carefully reviewed, there may still be some phonetic and typographical errors. These areas are purely typographical due to imperfections of the software programs, and do not reflect any compromise in the patient's medical care. Plan discussed with: Patient My Orders Orders - RAYRAY CLINE MD Procedure Category Date Status Time Chest Portable XY 02/25/25 Resulted 20:48 Complete Blood Count LAB 02/27/25 Verified 05:00 Complete Blood Count LAB 02/28/25 Verified 05:00 Basic Metabolic Panel LAB 02/27/25 Verified 05:00 Basic Metabolic Panel LAB 02/28/25 Verified 05:00 Date of Service: Feb 26, 2025 Billing Provider: RAYRAY CLINE MD Common Visit Codes: [id number] CARE 30-74 MIN RAYRAY CLINE MD Feb 26, 2025 12:42
--- NOTE | 2025-02-26 18:34 | DVHPN2 ---
Progress Note - Dictate Date Seen: Feb 26, 2025 Medical Necessity Reason Pt with a Central, PICC or Fol: Yes The following are medically ne: Central Line, Aguilar Catheter Subjective Patient intubated sedated Patient failed CPAP trial today Patient vomited some yellow creamy fluid this morning which was suctioned Patient continues to gag and vomit with suctioning Patient's sedation was increased Patient on tube feedings at 30 mL/hour No bowel movement recorded vital signs Vital Sign Date Time Temp Pulse Resp B/P (MAP) Pulse Ox O2 Delivery O2 Flow Rate FiO2 02/26/25 18:00 35 02/26/25 18:00 82 02/26/25 18:00 18 94 Mechanical Ventilator+ 02/26/25 17:09 116/58 02/26/25 12:00 99.0 99.0 Total Intake and Output 02/25/25 02/25/25 02/26/25 15:00 23:00 07:00 Intake Total 548.8 ml 674.780 ml 495.877 ml Output Total 1950 ml 1200 ml Balance 548.8 ml -1275.220 ml -704.123 ml medications Current Medications Medications Dose Ordered Sig/Geraldo Route Start Time Stop Time Status Last Admin Dose Admin Diagnostic Test (Pha) 1 strip ACHS 02/12/25 07:00 02/26/25 17:09 1 STRIP Insulin Human Regular ACHS SC 02/12/25 07:00 02/26/25 17:22 2 UNITS Dextrose 50 ml UD PRN IV 02/11/25 22:15 Acetaminophen 650 mg Q6HP PRN PO 02/11/25 22:15 Tamsulosin HCl 0.4 mg QPM PO 02/12/25 18:00 02/26/25 17:13 0.4 MG Aspirin 81 mg DAILY PO 02/12/25 10:00 02/26/25 09:16 81 MG Nicotine 1 patch DAILY TD 02/13/25 10:00 02/26/25 09:17 1 PATCH Midazolam HCl 100 ml @ 1 mls/hr Q24H IV 02/13/25 14:30 02/25/25 17:22 1 MLS/HR Octreotide Acetate 100 mcg TID SUBCUT 02/14/25 14:00 02/26/25 17:12 100 MCG Enteral Nutritional Formula 1,000 ml 30ML/HR GT 02/14/25 12:45 02/24/25 21:02 1,000 ML Sennosides 8.6 mg HS PO 02/14/25 22:00 02/25/25 22:24 8.6 MG Quetiapine Fumarate 25 mg BID PO 02/15/25 10:00 02/26/25 09:15 25 MG Pantoprazole Sodium 40 mg DAILY IV 02/17/25 10:00 02/26/25 09:16 40 MG Lactulose 30 ml BID PO 02/17/25 22:00 02/26/25 09:14 30 ML Methadone HCl 10 mg Q8HR PO 02/20/25 14:00 02/26/25 17:11 10 MG Clonazepam 0.5 mg Q12HP PRN PO 02/20/25 13:00 Sodium Chloride 10 ml QSHIFT@10,22 IV 02/21/25 22:00 02/26/25 09:18 10 ML Furosemide 80 mg BIDD IV 02/22/25 08:00 02/26/25 17:09 80 MG Norepinephrine Bitartrate 32 mg/ Sodium Chloride 250 ml @ 0.469 mls/ hr Q24H IV 02/22/25 15:00 02/26/25 02:11 4.688 MLS/HR Fentanyl Citrate 250 ml @ 2.5 mls/hr Q24H IV 02/22/25 19:15 02/26/25 13:07 10 MLS/HR Dobutamine HCl/ Dextrose 250 ml @ 27 mls/hr Q9H16M IV 02/23/25 13:45 02/26/25 13:06 27 MLS/HR Vancomycin HCl 250 ml @ 166.667 mls/hr DAILY IV 02/24/25 10:00 02/26/25 09:16 166.667 MLS/HR Albuterol 2.5 mg Q6HR NEB 02/24/25 18:00 02/26/25 18:27 2.5 MG Ipratropium [place] 0.5 mg Q6HR NEB 02/24/25 18:00 02/26/25 18:27 0.5 MG objective General: Overweight, afebrile, palor, mucosae are moist intubated sedated Cardiovascular: Regular S1 and S2. No murmurs, gallops or rubs. No JVD elevation. Pedal edema Respiratory: Decreased bilateral air entry on auscultation, mechanically ventilated Abdomen: Soft, nontender, nondistended, normoactive bowel sounds, no rebound tenderness, no organomegaly, no masses. Purulent vesicles on lower abdomen. Penile swelling. Small clots and Aguilar noted. Bilateral lower extremity, cyanosed, bluish, 3+ pedal edema, minimal pulses, laboratory and microbiology Laboratory Tests 02/26/25 04:20 Test 02/26/25 04:20 Range/Units Serum Glucose 133 H 74-106 mg/dL Problems(with codes): (1) Cyst of epididymis determined by ultrasound (2) Decompensated heart failure (3) Lactic acidosis (4) Generalized weakness (5) COPD with acute exacerbation (6) Elevated liver enzymes (7) Congestive heart failure Prognosis PLAN Bilirubin stable, LFTs unremarkable. H&H stable. Monitor CMP in a.m.. Continue lactulose 30 mL b.i.d. and senna. Continue conservative management. CPAP trial as tolerated Hepatitis panel negative Continue tube feedingsas tolerated HIV, syphilis negative. Gonorrhea and chlamydia negative Protonix 40 mg daily IV Reglan 5 mg iv q 8 hrs if N/V persist Dietary Evaluation Review Comments: CCHO-60 Cardiac diet, texture as tolearated when medically feasible nicotine cessation counseling Follow up with updated lab values Expected Outcomes/Goals: Improved nurition related lab values, free from nicotine Plan discussed with: Other (ICU Nurse) NADINE SUTTON MD Feb 26, 2025 18:34
--- NOTE | 2025-02-26 19:21 | DVHPN2 ---
Progress Note - Dictate Date Seen: Feb 26, 2025 Medical Necessity Reason Pt with a Central, PICC or Fol: Yes The following are medically ne: Central Line, Aguilar Catheter Subjective Patient was seen and evaluated in follow up in the ICU. Patient is intubated and sedated on ventilator. 35% FiO2. Patient failed CPAP trial. CL 95, CO2 >40, CA 8.2. Chest x-ray showed bibasilar airspace disease and pleural effusions. vital signs Vital Sign Date Time Temp Pulse Resp B/P (MAP) Pulse Ox O2 Delivery O2 Flow Rate FiO2 02/26/25 13:06 121/64 02/26/25 11:52 87 18 92 35 02/26/25 10:01 Mechanical Ventilator+ 02/26/25 08:00 99.2 99.2 Total Intake and Output 02/25/25 02/25/25 02/26/25 15:00 23:00 07:00 Intake Total 548.8 ml 674.780 ml 495.877 ml Output Total 1950 ml 1200 ml Balance 548.8 ml -1275.220 ml -704.123 ml medications Current Medications Medications Dose Ordered Sig/Geraldo Route Start Time Stop Time Status Last Admin Dose Admin Diagnostic Test (Pha) 1 strip ACHS 02/12/25 07:00 02/26/25 11:21 1 STRIP Insulin Human Regular ACHS SC 02/12/25 07:00 02/26/25 06:17 2 UNITS Dextrose 50 ml UD PRN IV 02/11/25 22:15 Acetaminophen 650 mg Q6HP PRN PO 02/11/25 22:15 Tamsulosin HCl 0.4 mg QPM PO 02/12/25 18:00 02/25/25 17:23 0.4 MG Aspirin 81 mg DAILY PO 02/12/25 10:00 02/26/25 09:16 81 MG Nicotine 1 patch DAILY TD 02/13/25 10:00 02/26/25 09:17 1 PATCH Midazolam HCl 100 ml @ 1 mls/hr Q24H IV 02/13/25 14:30 02/25/25 17:22 1 MLS/HR Octreotide Acetate 100 mcg TID SUBCUT 02/14/25 14:00 02/26/25 06:05 100 MCG Enteral Nutritional Formula 1,000 ml 30ML/HR GT 02/14/25 12:45 02/24/25 21:02 1,000 ML Sennosides 8.6 mg HS PO 02/14/25 22:00 02/25/25 22:24 8.6 MG Quetiapine Fumarate 25 mg BID PO 02/15/25 10:00 02/26/25 09:15 25 MG Meropenem 50 ml @ 17 mls/hr Q8HR IV 02/15/25 14:00 02/26/25 06:02 17 MLS/HR Pantoprazole Sodium 40 mg DAILY IV 02/17/25 10:00 02/26/25 09:16 40 MG Lactulose 30 ml BID PO 02/17/25 22:00 02/26/25 09:14 30 ML Methadone HCl 10 mg Q8HR PO 02/20/25 14:00 02/26/25 06:05 10 MG Clonazepam 0.5 mg Q12HP PRN PO 02/20/25 13:00 Sodium Chloride 10 ml QSHIFT@10,22 IV 02/21/25 22:00 02/26/25 09:18 10 ML Furosemide 80 mg BIDD IV 02/22/25 08:00 02/26/25 06:03 80 MG Norepinephrine Bitartrate 32 mg/ Sodium Chloride 250 ml @ 0.469 mls/ hr Q24H IV 02/22/25 15:00 02/26/25 02:11 4.688 MLS/HR Fentanyl Citrate 250 ml @ 2.5 mls/hr Q24H IV 02/22/25 19:15 02/26/25 13:07 10 MLS/HR Dobutamine HCl/ Dextrose 250 ml @ 27 mls/hr Q9H16M IV 02/23/25 13:45 02/26/25 13:06 27 MLS/HR Vancomycin HCl 250 ml @ 166.667 mls/hr DAILY IV 02/24/25 10:00 02/26/25 09:16 166.667 MLS/HR Albuterol 2.5 mg Q6HR NEB 02/24/25 18:00 02/26/25 11:51 2.5 MG Ipratropium [place] 0.5 mg Q6HR NEB 02/24/25 18:00 02/26/25 11:51 0.5 MG objective GENERAL: Ill appearing, intubated on ventilator. EYES: PERRL, EOMI. Anicteric. HENT: Moist mucous membranes. LUNGS: Decreased breath sounds. CARDIOVASCULAR: Regular rate and rhythm. ABDOMEN: Soft, nontender and nondistended. EXTREMITIES: No edema. SKIN: Warm, dry. laboratory and microbiology Laboratory Tests 02/26/25 04:20 Test 02/26/25 04:20 Range/Units Serum Glucose 133 H 74-106 mg/dL Problem List S/P PEA arrest. Cardiogenic shock. Acute hypoxic respiratory failure Systolic Heart failure with reduced ejection fraction. NSTEMI. Hypertension. Hyperkalemia. Small R pleural effusion. COPD with exacerbation. PNA. DCM. Transaminitis. ALEXIS. Lactic acidosis. Meth use. Leukocytosis. Type 2 [place] demand ischemia. Chronic venous stasis. Foot gangrene. L/l UE superficial thrombosis. High degree block. NSVT. Assessment/Plan Continued all current supportive medical care. Aspirin. GI prophylactics. Diuretics with Lasix. IV antibiotics as ordered. Nebulized breathing treatments. Vasopressors for hemodynamic support. Additional plan as per the hospital course. Critical care time of 45 minutes provided to include time spent evaluation of patient at bedside, when appropriate patient/family education for diagnosis, treatment plan, review of pertinent medical information and discussion of care with specialty providers and PCP. Mechanical ventilator parameters, treatment and adjustments have personally been reviewed by me and treatment plan by manufacturing shift supervisor has also been reviewed. Dietary Evaluation Review Comments: CCHO-60 Cardiac diet, texture as tolearated when medically feasible nicotine cessation counseling Follow up with updated lab values Expected Outcomes/Goals: Improved nurition related lab values, free from nicotine Plan discussed with: Other SHARMILA BENDER MD Feb 26, 2025 13:17
[2025-02-26] MEDS ORDERED: ONDANSETRON HCL 4 MG/2 ML VIAL IV PRN (22:30)
--- NOTE | 2025-02-26 23:32 | DVHPN2 ---
Subjective DOS: 02/26/2025 Patient seen and examined at bedside. Sedated, intubated on mechanical ventilator. Overnight events reviewed. Reviewed: Care Plan, H&P, Labs, Medications, Previous Orders, Radiology Changes from previous H/P or p: No Changes Eyes: No Pain, No Vision change, No Conjunctivae inflammation, No Eyelid inflammation, No Other, No Redness ENT: No Ear pain, No Ear discharge, No Nose pain, No Nose discharge, No Nose congestion, No Mouth pain, No Mouth swelling, No Throat pain, No Throat swelling, No Other Cardiovascular: No Chest Pain, No Palpitations, No Orthopnea, No Paroxysmal Noc. Dyspnea, No Edema, No Lt Headedness, No Other Respiratory: No Cough, No Dry; Shortness of breath, SOB with excertion; No Wheezing, No Hemoptysis, No Pleuritic Pain, No Sputum; Other (SOB at rest) Gastrointestinal: No Nausea, No Vomiting; Abdominal Pain; No Diarrhea, No Constipation, No Melena, No Hematochezia; Other (Abdominal distention) Genitourinary: No Dysuria, No Frequency, No Incontinence, No Hematuria, No Retention, No Other Musculoskeletal: No other, No neck pain, No shoulder pain, No arm pain, No back pain, No hand pain, No leg pain, No foot pain Skin: No Rash, No Lesions, No Jaundice, No Bruising; Other (Lower extremity open wounds) Objective Vitals Vital Signs Date Time Temp Pulse Resp B/P (MAP) Pulse Ox O2 Delivery O2 Flow Rate FiO2 02/26/25 22:04 86 18 121/59 (79) 97 35 02/26/25 18:00 Mechanical Ventilator+ 02/26/25 16:00 99.0 99.0 Intake/Output Intake and Output 02/26/25 07:00 Intake Total 1719.457 ml Output Total 3150 ml Balance -1430.543 ml Intake Oral 326 ml IV Total 1166.457 ml Tube Feeding 227 ml Output Urine Total 3150 ml Exam Gen.: Patient lying in bed in medical ICU. Sedated, intubated on mechanical ventilator. Head: Normocephalic, atraumatic. Eyes: PERRLA. Ears: Normal external anatomy. Throat: Endotracheal tube and orogastric tube in place. Neck: Supple, trachea midline. Chest: Transmitted breath sounds bilaterally. Decreased air entry bilaterally. No wheezing. Bibasilar crackles. Cardiovascular: Positive S1, positive S2. Regular rate and rhythm. Abdomen: Positive bowel sounds in all 4 quadrants. Soft, nontender, nondistended. : Aguilar in place. Normal external genitalia. Rectal: Deferred. Skin: Warm, dry. Intact. Extremities: 2+ radial pulses bilaterally. No lower extremity edema. Neuro: Sedated General Appearance: Other (intubate, on vent, unable to examined.) HEENT: Atraumatic, PERRLA, EOMI, Mucous membr. moist/pink Neck: Supple Lungs: Clear to auscultation, Normal air movement Cardiovascular: Regular rate, Normal S1, Normal S2, No murmurs, Gallops, Rubs Abdomen: Normal bowel sounds, Soft, No tenderness Neuro: Other (intubate, on vent , unable to examined.) Medications Current Medications Medications Dose Ordered Sig/Geraldo Route Start Time Stop Time Status Last Admin Dose Admin Diagnostic Test (Pha) 1 strip ACHS 02/12/25 07:00 02/26/25 22:00 1 STRIP Insulin Human Regular ACHS SC 02/12/25 07:00 02/26/25 17:22 2 UNITS Dextrose 50 ml UD PRN IV 02/11/25 22:15 Acetaminophen 650 mg Q6HP PRN PO 02/11/25 22:15 Tamsulosin HCl 0.4 mg QPM PO 02/12/25 18:00 02/26/25 17:13 0.4 MG Aspirin 81 mg DAILY PO 02/12/25 10:00 02/26/25 09:16 81 MG Nicotine 1 patch DAILY TD 02/13/25 10:00 02/26/25 09:17 1 PATCH Midazolam HCl 100 ml @ 1 mls/hr Q24H IV 02/13/25 14:30 02/25/25 17:22 1 MLS/HR Octreotide Acetate 100 mcg TID SUBCUT 02/14/25 14:00 02/26/25 21:39 100 MCG Enteral Nutritional Formula 1,000 ml 30ML/HR GT 02/14/25 12:45 02/24/25 21:02 1,000 ML Sennosides 8.6 mg HS PO 02/14/25 22:00 02/26/25 21:39 8.6 MG Quetiapine Fumarate 25 mg BID PO 02/15/25 10:00 02/26/25 21:32 25 MG Pantoprazole Sodium 40 mg DAILY IV 02/17/25 10:00 02/26/25 09:16 40 MG Lactulose 30 ml BID PO 02/17/25 22:00 02/26/25 21:32 30 ML Methadone HCl 10 mg Q8HR PO 02/20/25 14:00 02/26/25 21:39 10 MG Clonazepam 0.5 mg Q12HP PRN PO 02/20/25 13:00 Sodium Chloride 10 ml QSHIFT@10,22 IV 02/21/25 22:00 02/26/25 22:00 10 ML Furosemide 80 mg BIDD IV 02/22/25 08:00 02/26/25 17:09 80 MG Norepinephrine Bitartrate 32 mg/ Sodium Chloride 250 ml @ 0.469 mls/ hr Q24H IV 02/22/25 15:00 02/26/25 02:11 4.688 MLS/HR Fentanyl Citrate 250 ml @ 2.5 mls/hr Q24H IV 02/22/25 19:15 02/26/25 13:07 10 MLS/HR Dobutamine HCl/ Dextrose 250 ml @ 27 mls/hr Q9H16M IV 02/23/25 13:45 02/26/25 13:06 27 MLS/HR Vancomycin HCl 250 ml @ 166.667 mls/hr DAILY IV 02/24/25 10:00 02/26/25 09:16 166.667 MLS/HR Albuterol 2.5 mg Q6HR NEB 02/24/25 18:00 02/26/25 18:27 2.5 MG Ipratropium [place] 0.5 mg Q6HR NEB 02/24/25 18:00 02/26/25 18:27 0.5 MG Ondansetron HCl 4 mg Q6HPRN PRN IV 02/26/25 22:30 Laboratory Results Laboratory Tests 02/26/25 04:20 Chemistry Test 02/26/25 04:20 Calcium Level 8.2 mg/dL (8.7-10.4) L Urinalysis Test 02/14/25 11:30 02/19/25 13:50 Urine Protein/Creatinine Ratio 0.26 Urine Total Protein < 6.0 mg/dL (1-14) Urine Osmolality 587 mOsm/kg Urine Creatinine 76.95 mg/dL (30.0-125.0) Urine Sodium 79 mmol/L (40-220) Blood Gas Results Test 02/26/25 07:22 Arterial Blood pH 7.478 (7.350-7.450) FiO2 % 35.0 Microbiology Microbiology Date/Time Source Procedure Growth Status 02/13/25 08:15 Nose MRSA Screen - Final Complete 02/11/25 19:38 Blood Blood Culture - Final NO GROWTH AFTER 5 DAYS OF INCUBATION. Complete Assessment/Plan Assessment/Plan Impression: Acute hypoxemic respiratory failure On mechanical ventilator Pleural effusion Atelectasis S/p cardiac arrest Cardiomyopathy Congestive heart failure Obesity Events: Remains on vent support On AC mode; RR 18, VT 500, PEEP 6, FiO2 35% On Fentanyl drip 100 mcg/hr. On Seroquel. ABG reviewed, shows alkalemia Pressors for hemodynamic support On Levophed 3 mcg/min Titrate to keep mean arterial pressure greater than 65 mmHg. Taper down pressors as tolerated - improved pressor requirements Patient with on and off bradycardia and NSVT Cardiology recs appreciated On Dobutamine 5 mcg/min for inotropic support Plan for pacemaker placement. Limited chest ultrasound revealed moderate right pleural effusion yesterday. Plan for right thoracentesis Off dopamine. Nephrology recs appreciated. Tube feeds for nutritional support Continue antibiotics Continue bronchodilators Wound care. S/p PICC line placement - PICC line is deemed medically necessary for administration of pressors. Nephrology recs appreciated Diurese to euvolemia Monitor renal function Monitor electrolytes. Supplement as necessary. Potassium supplementation K 3.5, Ca of 8.2. Abdomen x-ray shows no e/o bowel obstruction. Labs and imaging reviewed. Rest of plan as noted below. Plan: s/p intubation on mechanical ventilator. On AC mode; RR 18, VT 500, PEEP 6, FiO2 35% Titrate FIO2 to keep O2 saturation above 90%. VAP bundle. Daily ABG and CXR while intubated Patient is s/p right thoracentesis. Continue bronchodilators. Continue antibiotics. Follow up cultures. Monitor WBC count Pressors as necessary for hemodynamic support Titrate to keep mean arterial pressure greater than 65 mmHg. Echo report reviewed; EF approximately 20% Cardiology recs appreciated. On Protonix, Sandostatin Monitor hemoglobin Tube feeds for nutritional support Follow up GI recs Diurese with Lasix Monitor renal function Monitor electrolytes. Supplement as necessary. Monitor ins and outs. Maintain euvolemia. GI prophylaxis -Protonix. DVT prophylaxis - Lovenox. Prognosis: Poor given patient's multiple co-morbidities. Condition: Critical Rest of plan per hospitalist and other consultants. A total of 35 minutes of critical care time was spent reviewing the patient record, examining the patient, making a diagnostic and therapeutic plan, discussing this plan with the medical personnel, following up on diagnostic studies and following the patient for clinical stability excluding any and all procedures. At least 50% of this time was spent in direct, [id number] contact. Thank you, Dr. Blas, for allowing me to participate in this patient's care. Further recommendations will depend on the patient's clinical course. Please do not hesitate to contact me if you have any questions or concerns. This medical document was created using an electronic medical record system with [employer] dictation system. Although these documentations are being carefully reviewed, there may still be some phonetic and typographical changes. The errors are purely typographical, due to imperfection on the software program, and do not reflect any compromise in the patient's medical care. Plan discussed with: Other (LEIGHTON Hall) My Orders Orders - DOLORES VELAZQUEZ MD Procedure Category Date Status Time Abg W/ Co-Ox RT 02/26/25 Logged 06:00 Visit Coding Pulmonary Billing Provider: DOLORES VELAZQUEZ MD Date of Service if different f: Feb 26, 2025 Common Visit Codes: [id number] INP/OBS CARE(HIGH), [id number] CARE 30-74 MIN DOLORES VELAZQUEZ MD Feb 26, 2025 23:32
[2025-02-27] VITALS (105 sets, daily range): BP systolic 72–132; BP diastolic 44–81; PULSE 62–117; RESP 15–22; TEMP 97.5–98.6; O2SAT 91–100
[2025-02-27 04:38] LABS: Hematocrit 37.2 % (41.0-53.0); Hemoglobin 12.4 g/dL (13.5-17.5); Mean Corpuscular Hemoglobin 30.7 pg (28.0-32.0); Mean Corpuscular Volume 92.2 fL (80.0-100.0); Nucleated Red Blood Cells % 0.1 %
[2025-02-27 05:06] LABS: Sodium 137 mmol/L (136-145)
[2025-02-27 05:10] LABS: Anion Gap 5.99999 (5-15); Calcium 8.2 mg/dL (8.7-10.4); Chloride 91 mmol/L (98-107); Potassium 3.4 mmol/L (3.5-5.1)
[2025-02-27 05:11] LABS: Carbon Dioxide > 40 mmol/L (20-31)
--- NOTE | 2025-02-27 05:11 | DVH ---
CHEST RADIOGRAPH INDICATION: INTUBATED TECHNIQUE: Single frontal view of the chest was obtained COMPARISON: XY CHEST PORTABLE on DOS: 02/25/25, XY CHEST XRAY 1 VIEW on DOS: 02/23/25, XY CHEST PORTABLE on DOS: 02/22/25, XY CHEST PORTABLE on DOS: 02/21/25, XY CHEST PORTABLE on DOS: 02/20/25 FINDINGS: Lines and Tubes: Endotracheal tube tip projects 4.4 cm above the level of the veronica. Remaining lines and tubes are unchanged. Lungs: Moderate Bibasilar pulmonary airspace disease and bilateral pleural effusions. No pneumothorax. Cardiomediastinal contours: Cardiomegaly. Bones: Unremarkable IMPRESSION: 1. Endotracheal tube in appropriate position. Remaining lines and tubes unchanged. 2. Moderate bibasilar pulmonary airspace disease and bilateral pleural effusions. 3. Cardiomegaly.
[2025-02-27 05:12] LABS: BUN/Creatinine Ratio 21.3 (10.0-20.0); Blood Urea Nitrogen 13 mg/dL (9-23)
[2025-02-27 05:13] LABS: Magnesium 1.9 mg/dL (1.6-2.6)
[2025-02-27 05:14] LABS: Glucose 181 mg/dL (74-106)
[2025-02-27] MEDS: POTASSIUM CHL 20MEQ/100ML 100 ML IV ONE (06:18)
[2025-02-27 07:14] LABS: Base Excess 15.0 mmol/L (-2.0-3.0)
[2025-02-27] MEDS ORDERED: clonazePAM 0.5 MG TAB PO SCH (10:00)
--- NOTE | 2025-02-27 12:02 | DVHPN2 ---
Progress Note Date Seen: Feb 27, 2025 Medical Necessity Reason Pt with a Central, PICC or Fol: Yes The following are medically ne: Central Line, Aguilar Catheter Subjective Other Systems: intubated on sedation reviewed telel no major events over weekend Objective vital signs Vital Sign Date Time Temp Pulse Resp B/P (MAP) Pulse Ox O2 Delivery O2 Flow Rate FiO2 02/27/25 11:28 73 18 91/55 (67) 95 35 02/27/25 08:00 Mechanical Ventilator+ 02/27/25 08:00 98.3 98.3 Total Intake and Output 02/26/25 02/26/25 02/27/25 15:00 23:00 07:00 Intake Total 280.530 ml 674.867 ml 486.193 ml Output Total 1930 ml 1550 ml Balance 280.530 ml -1255.133 ml -1063.807 ml medications Current Medications Medications Dose Ordered Sig/Geraldo Route Start Time Stop Time Status Last Admin Dose Admin Diagnostic Test (Pha) 1 strip ACHS 02/12/25 07:00 02/27/25 06:30 1 STRIP Insulin Human Regular ACHS SC 02/12/25 07:00 02/26/25 17:22 2 UNITS Dextrose 50 ml UD PRN IV 02/11/25 22:15 Acetaminophen 650 mg Q6HP PRN PO 02/11/25 22:15 Tamsulosin HCl 0.4 mg QPM PO 02/12/25 18:00 02/26/25 17:13 0.4 MG Aspirin 81 mg DAILY PO 02/12/25 10:00 02/27/25 10:41 81 MG Nicotine 1 patch DAILY TD 02/13/25 10:00 02/27/25 10:42 1 PATCH Midazolam HCl 100 ml @ 1 mls/hr Q24H IV 02/13/25 14:30 02/27/25 10:42 1 MLS/HR Enteral Nutritional Formula 1,000 ml 30ML/HR GT 02/14/25 12:45 02/24/25 21:02 1,000 ML Sennosides 8.6 mg HS PO 02/14/25 22:00 02/26/25 21:39 8.6 MG Quetiapine Fumarate 25 mg BID PO 02/15/25 10:00 02/27/25 10:41 25 MG Pantoprazole Sodium 40 mg DAILY IV 02/17/25 10:00 02/27/25 10:40 40 MG Lactulose 30 ml BID PO 02/17/25 22:00 02/27/25 10:41 30 ML Sodium Chloride 10 ml QSHIFT@10,22 IV 02/21/25 22:00 02/27/25 10:40 10 ML Furosemide 80 mg BIDD IV 02/22/25 08:00 02/27/25 06:18 80 MG Norepinephrine Bitartrate 32 mg/ Sodium Chloride 250 ml @ 0.469 mls/ hr Q24H IV 02/22/25 15:00 02/26/25 02:11 4.688 MLS/HR Fentanyl Citrate 250 ml @ 2.5 mls/hr Q24H IV 02/22/25 19:15 02/27/25 03:52 22.5 MLS/HR Albuterol 2.5 mg Q6HR NEB 02/24/25 18:00 02/27/25 11:28 2.5 MG Ipratropium [place] 0.5 mg Q6HR NEB 02/24/25 18:00 02/27/25 11:28 0.5 MG Ondansetron HCl 4 mg Q6HPRN PRN IV 02/26/25 22:30 Clonazepam 0.5 mg Q12HP PO 02/27/25 10:00 Diphenhydramine HCl 25 mg Q6HR GT 02/27/25 12:00 Examination: GENERAL:Abnormal, HEENT:Abnormal, LUNGS:Abnormal, CVS:Abnormal, ABDOMEN:Abnormal laboratory and microbiology Laboratory Tests 02/27/25 03:40 Test 02/27/25 03:40 Range/Units Serum Glucose 181 H 74-106 mg/dL Microbiology Date/Time Source Procedure Growth Status 02/13/25 08:15 Nose MRSA Screen - Final Complete 02/11/25 19:38 Blood Blood Culture - Final NO GROWTH AFTER 5 DAYS OF INCUBATION. Complete Problem List/Assessment/Plan Problem List/Assessment/Plan chf meth abuse resp failure leg edema PEA arrest transient av block on 02/22 no major events unsure of his mental status given sedation and difficulty weaning trach peg planned avoid avn agents no indication for pacing his prognosis is quite poor. recommend family discuss/ palliation/ code status etc Plan discussed with: Other (rn) Dietary Evaluation Review Comments: CCHO-60 Cardiac diet, texture as tolearated when medically feasible nicotine cessation counseling Follow up with updated lab values Expected Outcomes/Goals: Improved nurition related lab values, free from nicotine Date of Service: Feb 27, 2025 Billing Provider: ALLEY PANDEY MD Common Visit Codes: NOT BILLABLE ALLEY PANDEY MD Feb 27, 2025 12:02
--- NOTE | 2025-02-27 14:35 | DVHPN2 ---
Assessment/Plan Assessment/Plan ICU note 64 M with HTN, HFrEF 20%, DM, ascites, meth use admitted for SOB, later was found in respiratory distress, intubated and had PEA arrest, ROSC in 4 minutes. 02/14 s/p thora, 2 L out. switched to lasix drip. start TF. POCUS done, minimal tapable pocket in abdomen. wound culture with prelim growth. wound care 02/15 wound culture back, changed abx to vanc and lay[place], starting oral meds for weaning, patient previously agitated, to decrease prevent self extubation. lasix drip switched to 60 BID. SAT SBT tomorrow. 02/16 hold diuresis today, POCUS with improving IVC, off sedation, not waking up still. 02/17 adding diamox, metabolic alkalosis, decrease RR, holding methadone and klonazepam, off sedation, opening eyes to name, not following command, c/w SAT SBT. 02/18 off sedation and calm 02/19 continues to remain intubated and off sedation 02/20 agitated, restarting methadone and clonazepam. will d/w fam regarding trach if he continues to be difficult to sedate. positive balance, readding lasix, discontinueing fluid. 02/21 POCUS done, IVC >2cm with no excursion, severely reduced EF. net positive the past 2 days, doubling lasix dose. back on pressor. follows commands once. once stable will get CT angio to see if he will need intervention. podiatry consult 02/22 b/l UE superficial thrombus, no deep vein thrombus, dc tlc, continue to titrate off pressor, c/w diuresis. daily SAT SBT. i called family but went to . plan for extubation vs trach, possibly without full mental status if doing well during cpap 02/23 seen today, still on sedation. on and off having bradycardia and NSVT. cardio reconsulted today. starting dobutamine, c/w lasix acetazolamide 02/24 adequate diuresis, stion dobu and levo, no increase ectopy. no mental status. called fam member but went to again. consult for trach and peg. 02/27 called franco, he does not want to make medical decision and deferred to anali sister. called anali, consent signed for trach peg. called ex nannette, per ex , both sons will make medical decision together, given contact number of son through his boss. Norma Ugarte and son is Franco. Explained to Franco (son) regarding trach and peg and need of possible ppm and angiogram. he understands, will discuss with family and get back with a decision tomorrow. Per franco stanley to be reached at [phone] and [phone] (gf). no answer left vm. physical exam intubated on mechanical ventilator mildly sedated obese opening eyes to name follows commands once cannot appreciate JVD mechanical breath soundsl S1 S2 systolic murmur abdomen distended b/l LE edema w/ chronic venous wounds R foot with multiple gangrene dry and wet vent ac/vc 550 16 30% PEEP 6l 7.302/50/77 drips levophed fentanyl versed labs reviewed acetinobacter, pseudomonas, e faecalis, MRSA in wound cultrue imaging cxr RLL opacity echo LVEF 20%, DCM, MR assessment and plan s/p PEA arrest ROSC 4 mins cardiogenic shock acute on chronic hypoxic RF acute on chronic systolic HF small R PLEF COPD with exacerbation PNA gp vs gn HFrEF 20% DCM transaminitis cirrhosis? ascites? ALEXIS likely VMN lactic acidosis meth use leukocytosis type 2 CA demand ischemia DM? chronic venous stasis wound with multiple bact L testicular mass? foot gangrene b/l UE superficial thrombosis high degree block NSVT ICU SAT SBT titrate levophed to maintain MAP >60 c/w mechanical vent increase diuresis to goal net neg 1L daily c/w sedation, maintain RAAS -2, added methadone, klonopin, seroquel trend lactate, cr, LFT c/w vanc , zosyn switched to [place] avoid fever VAP bundle bronchodilators hold GDMT until off pressors send A1C, lipid, tsh wound care daily SAT SBT podiatry consult CTA runoff once stable dobutamine to assist diuresis and inotropy, will dc if NSVT increased keep K 4 Ph 3 Mg 2 Diet jevity to goal DVT PPX lovenox GI PPX protonix Lines RIJ TLC NGT jaffe PICC Full code condition critical prognosis poor critical care time 50 minutes Plan discussed with: Other My Orders Orders - SYEDA VILLALOBOS MD Procedure Category Date Status Time Complete Blood Count LAB 02/28/25 Verified 04:00 Comprehensive LAB 02/28/25 Verified Metabolic Panel 04:00 Magnesium LAB 02/28/25 Verified 04:00 Phosphorus LAB 02/28/25 Verified 04:00 Obtain Consent For: ORDERS 02/27/25 Transmitted 10:34 Obtain Consent For: ORDERS 02/27/25 Transmitted 10:34 Obtain Informed ANTONY 02/27/25 In Process Consent For Cc 10:34 Communication Order ORDERS 02/27/25 Transmitted 10:00 Communication Order ORDERS 02/27/25 Transmitted 10:00 Diphenhydramine PHA 02/27/25 In Process Liquid (Benadryl 12:00 Communication Order ORDERS 02/27/25 Transmitted 10:00 Clonazepam Tablet PHA 02/27/25 In Process (Klonopin Tablet) 22:00 Date of Service: Feb 27, 2025 Billing Provider: SYEDA VILLALOBOS MD Common Visit Codes: [id number] CARE 30-74 MIN SYEDA VILLALOBOS MD Feb 27, 2025 14:35
[2025-02-27] MEDS: DOBUTamine 1000MCG/ML 250 ML IV SCH (15:39)
--- NOTE | 2025-02-27 21:40 | DVHPN2 ---
Subjective DOS: 02/27/2025 Patient seen and examined at bedside. Sedated, intubated on mechanical ventilator. Overnight events reviewed. Reviewed: Care Plan, H&P, Labs, Medications, Previous Orders, Radiology Changes from previous H/P or p: No Changes Eyes: No Pain, No Vision change, No Conjunctivae inflammation, No Eyelid inflammation, No Other, No Redness ENT: No Ear pain, No Ear discharge, No Nose pain, No Nose discharge, No Nose congestion, No Mouth pain, No Mouth swelling, No Throat pain, No Throat swelling, No Other Cardiovascular: No Chest Pain, No Palpitations, No Orthopnea, No Paroxysmal Noc. Dyspnea, No Edema, No Lt Headedness, No Other Respiratory: No Cough, No Dry; Shortness of breath, SOB with excertion; No Wheezing, No Hemoptysis, No Pleuritic Pain, No Sputum; Other (SOB at rest) Gastrointestinal: No Nausea, No Vomiting; Abdominal Pain; No Diarrhea, No Constipation, No Melena, No Hematochezia; Other (Abdominal distention) Genitourinary: No Dysuria, No Frequency, No Incontinence, No Hematuria, No Retention, No Other Musculoskeletal: No other, No neck pain, No shoulder pain, No arm pain, No back pain, No hand pain, No leg pain, No foot pain Skin: No Rash, No Lesions, No Jaundice, No Bruising; Other (Lower extremity open wounds) Objective Vitals Vital Signs Date Time Temp Pulse Resp B/P (MAP) Pulse Ox O2 Delivery O2 Flow Rate FiO2 02/27/25 20:04 74 16 97/58 (71 95 35 02/27/25 18:00 Mechanical Ventilator+ 02/27/25 16:00 97.8 97.8 Intake/Output Intake and Output 02/27/25 07:00 Intake Total 1441.590 ml Output Total 3480 ml Balance -2038.410 ml Intake Oral 120 ml IV Total 736.590 ml Tube Feeding 335 ml Other 250 ml Output Urine Total 3350 ml Emesis 130 ml Exam Gen.: Patient lying in bed in medical ICU. Sedated, intubated on mechanical ventilator. Head: Normocephalic, atraumatic. Eyes: PERRLA. Ears: Normal external anatomy. Throat: Endotracheal tube and orogastric tube in place. Neck: Supple, trachea midline. Chest: Transmitted breath sounds bilaterally. Decreased air entry bilaterally. No wheezing. Bibasilar crackles. Cardiovascular: Positive S1, positive S2. Regular rate and rhythm. Abdomen: Positive bowel sounds in all 4 quadrants. Soft, nontender, nondistended. : Aguilar in place. Normal external genitalia. Rectal: Deferred. Skin: Warm, dry. Intact. Extremities: 2+ radial pulses bilaterally. No lower extremity edema. Neuro: Sedated General Appearance: Other (intubate, on vent, unable to examined.) HEENT: Atraumatic, PERRLA, EOMI, Mucous membr. moist/pink Neck: Supple Lungs: Clear to auscultation, Normal air movement Cardiovascular: Regular rate, Normal S1, Normal S2, No murmurs, Gallops, Rubs Abdomen: Normal bowel sounds, Soft, No tenderness Neuro: Other (intubate, on vent , unable to examined.) Medications Current Medications Medications Dose Ordered Sig/Geraldo Route Start Time Stop Time Status Last Admin Dose Admin Diagnostic Test (Pha) 1 strip ACHS 02/12/25 07:00 02/27/25 18:27 1 STRIP Insulin Human Regular ACHS SC 02/12/25 07:00 02/26/25 17:22 2 UNITS Dextrose 50 ml UD PRN IV 02/11/25 22:15 Acetaminophen 650 mg Q6HP PRN PO 02/11/25 22:15 Tamsulosin HCl 0.4 mg QPM PO 02/12/25 18:00 02/27/25 18:29 0.4 MG Aspirin 81 mg DAILY PO 02/12/25 10:00 02/27/25 10:41 81 MG Nicotine 1 patch DAILY TD 02/13/25 10:00 02/27/25 10:42 1 PATCH Midazolam HCl 100 ml @ 1 mls/hr Q24H IV 02/13/25 14:30 02/27/25 10:42 1 MLS/HR Enteral Nutritional Formula 1,000 ml 30ML/HR GT 02/14/25 12:45 02/24/25 21:02 1,000 ML Sennosides 8.6 mg HS PO 02/14/25 22:00 02/26/25 21:39 8.6 MG Quetiapine Fumarate 25 mg BID PO 02/15/25 10:00 02/27/25 10:41 25 MG Pantoprazole Sodium 40 mg DAILY IV 02/17/25 10:00 02/27/25 10:40 40 MG Lactulose 30 ml BID PO 02/17/25 22:00 02/27/25 10:41 30 ML Sodium Chloride 10 ml QSHIFT@10,22 IV 02/21/25 22:00 02/27/25 10:40 10 ML Furosemide 80 mg BIDD IV 02/22/25 08:00 02/27/25 18:28 80 MG Norepinephrine Bitartrate 32 mg/ Sodium Chloride 250 ml @ 0.469 mls/ hr Q24H IV 02/22/25 15:00 02/26/25 02:11 4.688 MLS/HR Fentanyl Citrate 250 ml @ 2.5 mls/hr Q24H IV 02/22/25 19:15 02/27/25 17:25 5 MLS/HR Albuterol 2.5 mg Q6HR NEB 02/24/25 18:00 02/27/25 18:44 2.5 MG Ipratropium [place] 0.5 mg Q6HR NEB 02/24/25 18:00 02/27/25 18:44 0.5 MG Ondansetron HCl 4 mg Q6HPRN PRN IV 02/26/25 22:30 Diphenhydramine HCl 25 mg Q6HR GT 02/27/25 12:00 02/27/25 18:28 25 MG Clonazepam 0.5 mg Q12HR GT 02/27/25 22:00 Dobutamine HCl/ Dextrose 250 ml @ 0 mls/hr Q0M IV 02/27/25 15:15 02/27/25 15:39 2.5 MLS/HR Laboratory Results Laboratory Tests 02/27/25 03:40 Chemistry Test 02/27/25 03:40 Calcium Level 8.2 mg/dL (8.7-10.4) L Magnesium Level 1.9 mg/dL (1.6-2.6) Phosphorus Level 2.6 mg/dL (2.4-5.1) Urinalysis Test 02/14/25 11:30 02/19/25 13:50 Urine Protein/Creatinine Ratio 0.26 Urine Total Protein < 6.0 mg/dL (1-14) Urine Osmolality 587 mOsm/kg Urine Creatinine 76.95 mg/dL (30.0-125.0) Urine Sodium 79 mmol/L (40-220) Blood Gas Results Test 02/27/25 06:58 Arterial Blood pH 7.482 (7.350-7.450) FiO2 % 35.0 Microbiology Microbiology Date/Time Source Procedure Growth Status 02/13/25 08:15 Nose MRSA Screen - Final Complete 02/11/25 19:38 Blood Blood Culture - Final NO GROWTH AFTER 5 DAYS OF INCUBATION. Complete Assessment/Plan Assessment/Plan Impression: Acute hypoxemic respiratory failure On mechanical ventilator Pleural effusion Atelectasis S/p cardiac arrest Cardiomyopathy Congestive heart failure Obesity Events: Remains on vent support On AC mode; RR 16, VT 500, PEEP 6, FiO2 35% Sedated on Versed On Fentanyl drip 100 mcg/hr. On Seroquel. ABG reviewed, shows alkalemia CXR reveals cardiomegaly with pulmonary vascular congestion. Small bilateral pleural effusions with mild bibasilar atelectasis / consolidation. Pressors for hemodynamic support On Levophed 1 mcg/min Titrate to keep mean arterial pressure greater than 65 mmHg. Taper down pressors as tolerated - improved pressor requirements Patients daughter Myrna has consented for PEG/trach. OG tube was placed today. Patient with on and off bradycardia and NSVT Cardiology recs appreciated On Dobutamine 5 mcg/min for inotropic support Plan for pacemaker placement. Limited chest ultrasound revealed moderate right pleural effusion Consult IR for right thoracentesis Off dopamine. Nephrology recs appreciated. Tube feeds for nutritional support Continue antibiotics Continue bronchodilators Wound care. S/p PICC line placement - PICC line is deemed medically necessary for administration of pressors. Nephrology recs appreciated Diurese to euvolemia Monitor renal function Monitor electrolytes. Supplement as necessary.. K 3.4, CO2 >40. Abdomen x-ray shows no e/o bowel obstruction. Labs and imaging reviewed. Rest of plan as noted below. Plan: s/p intubation on mechanical ventilator. On AC mode; RR 16, VT 500, PEEP 6, FiO2 35% Titrate FIO2 to keep O2 saturation above 90%. VAP bundle. Daily ABG and CXR while intubated Patient is s/p right thoracentesis. Continue bronchodilators. Continue antibiotics. Follow up cultures. Monitor WBC count Pressors as necessary for hemodynamic support Titrate to keep mean arterial pressure greater than 65 mmHg. Echo report reviewed; EF approximately 20% Cardiology recs appreciated. On Protonix, Sandostatin Monitor hemoglobin Tube feeds for nutritional support Follow up GI recs Diurese with Lasix Monitor renal function Monitor electrolytes. Supplement as necessary. Monitor ins and outs. Maintain euvolemia. GI prophylaxis -Protonix. DVT prophylaxis - Lovenox. Prognosis: Poor given patient's multiple co-morbidities. Condition: Critical Rest of plan per hospitalist and other consultants. A total of 35 minutes of critical care time was spent reviewing the patient record, examining the patient, making a diagnostic and therapeutic plan, discussing this plan with the medical personnel, following up on diagnostic studies and following the patient for clinical stability excluding any and all procedures. At least 50% of this time was spent in direct, [id number] contact. Thank you, Dr. Blas, for allowing me to participate in this patient's care. Further recommendations will depend on the patient's clinical course. Please do not hesitate to contact me if you have any questions or concerns. This medical document was created using an electronic medical record system with Viki dictation system. Although these documentations are being carefully reviewed, there may still be some phonetic and typographical changes. The errors are purely typographical, due to imperfection on the software program, and do not reflect any compromise in the patient's medical care. Plan discussed with: Other (LEIGHTON Ward) My Orders Orders - DOLORES VELAZQUEZ MD Procedure Category Date Status Time Abg W/ Co-Ox RT 02/27/25 Logged 06:00 Communication Order ORDERS 02/27/25 Transmitted 18:51 Ventilator Orders RT 02/27/25 Transmitted 20:24 Visit Coding Pulmonary Billing Provider: DOLORES VELAZQUEZ MD Date of Service if different f: Feb 27, 2025 Common Visit Codes: 18960-[id number] INP/OBS CARE(HIGH), [id number] CARE 30-74 MIN DOLORES VELAZQUEZ MD Feb 27, 2025 21:39
[2025-02-27] MEDS: clonazePAM 0.5 MG TAB GT SCH (22:23)
--- NOTE | 2025-02-27 22:32 | DVH ---
CHEST RADIOGRAPH INDICATION: ng tube placement TECHNIQUE: Single frontal view of the chest was obtained COMPARISON: XY CHEST PORTABLE on DOS: 02/27/25, XY CHEST PORTABLE on DOS: 02/25/25, XY CHEST XRAY 1 VIEW on DOS: 02/23/25, XY CHEST PORTABLE on DOS: 02/22/25, XY CHEST PORTABLE on DOS: 02/21/25 FINDINGS: NG tube at least in the mid stomach, tip extending beyond the field of view. ET tube tip terminating approximately 3 cm above the veronica. Stable cardiomegaly with pulmonary venous congestion, bilateral effusions, and bibasilar atelectasis /consolidation IMPRESSION: NG tube at least in the mid stomach, tip extending beyond the field of view.
[2025-02-28] VITALS (106 sets, daily range): BP systolic 85–117; BP diastolic 47–78; PULSE 69–94; RESP 12–21; TEMP 96.9–98.7; O2SAT 92–99
--- NOTE | 2025-02-28 00:09 | DVH ---
CHEST RADIOGRAPH INDICATION: og tube placement TECHNIQUE: Single frontal view of the chest was obtained COMPARISON: XY CHEST PORTABLE on DOS: 02/27/25, XY CHEST PORTABLE on DOS: 02/27/25, XY CHEST PORTABLE on DOS: 02/25/25, XY CHEST XRAY 1 VIEW on DOS: 02/23/25, XY CHEST PORTABLE on DOS: 02/22/25 FINDINGS: ET tube tip terminating approximately 3 cm above the veronica. NG tube in the mid stomach. Left-sided PICC line with tip near the cavoatrial junction. Cardiac silhouette is enlarged. Diffuse prominence of the pulmonary vasculature. Small bilateral pleural effusions with mild bibasilar atelectasis / consolidation. IMPRESSION: Lines and tubes as above. Cardiomegaly with pulmonary vascular congestion. Small bilateral pleural effusions with mild bibasilar atelectasis / consolidation.
--- NOTE | 2025-02-28 00:24 | DVHPN2 ---
Progress Note - Dictate Date Seen: Feb 27, 2025 Medical Necessity Reason Pt with a Central, PICC or Fol: Yes The following are medically ne: Central Line, Aguilar Catheter Subjective Patient was seen and evaluated in follow up in the ICU. Patient is intubated and sedated on ventilator. 35% FiO2. Patients daughter Myrna has consented for PEG/trach. K 3.4, CO2 >40. OG tube was placed today. Chest x-ray shows moderate bibasilar pulmonary airspace disease and bilateral pleural effusions and cardiomegaly. vital signs Vital Sign Date Time Temp Pulse Resp B/P (MAP) Pulse Ox O2 Delivery O2 Flow Rate FiO2 02/28/25 00:05 71 16 89/52 (64) 96 35 02/28/25 00:00 Mechanical Ventilator+ 02/27/25 20:00 97.7 97.7 Total Intake and Output 02/27/25 02/27/25 02/28/25 15:00 23:00 07:00 Intake Total 189.523 ml 154.519 ml 3.96 ml Output Total 1650 ml Balance 189.523 ml -1495.481 ml 3.96 ml medications Current Medications Medications Dose Ordered Sig/Geraldo Route Start Time Stop Time Status Last Admin Dose Admin Diagnostic Test (Pha) 1 strip ACHS 02/12/25 07:00 02/27/25 22:00 1 STRIP Insulin Human Regular ACHS SC 02/12/25 07:00 02/26/25 17:22 2 UNITS Dextrose 50 ml UD PRN IV 02/11/25 22:15 Acetaminophen 650 mg Q6HP PRN PO 02/11/25 22:15 Tamsulosin HCl 0.4 mg QPM PO 02/12/25 18:00 02/27/25 18:29 0.4 MG Aspirin 81 mg DAILY PO 02/12/25 10:00 02/27/25 10:41 81 MG Nicotine 1 patch DAILY TD 02/13/25 10:00 02/27/25 10:42 1 PATCH Midazolam HCl 100 ml @ 1 mls/hr Q24H IV 02/13/25 14:30 02/27/25 10:42 1 MLS/HR Enteral Nutritional Formula 1,000 ml 30ML/HR GT 02/14/25 12:45 02/24/25 21:02 1,000 ML Sennosides 8.6 mg HS PO 02/14/25 22:00 02/27/25 22:23 8.6 MG Quetiapine Fumarate 25 mg BID PO 02/15/25 10:00 02/27/25 22:23 25 MG Pantoprazole Sodium 40 mg DAILY IV 02/17/25 10:00 02/27/25 10:40 40 MG Lactulose 30 ml BID PO 02/17/25 22:00 02/27/25 22:23 30 ML Sodium Chloride 10 ml QSHIFT@10,22 IV 02/21/25 22:00 02/27/25 22:23 10 ML Furosemide 80 mg BIDD IV 02/22/25 08:00 02/27/25 18:28 80 MG Norepinephrine Bitartrate 32 mg/ Sodium Chloride 250 ml @ 0.469 mls/ hr Q24H IV 02/22/25 15:00 02/26/25 02:11 4.688 MLS/HR Fentanyl Citrate 250 ml @ 2.5 mls/hr Q24H IV 02/22/25 19:15 02/27/25 17:25 5 MLS/HR Albuterol 2.5 mg Q6HR NEB 02/24/25 18:00 02/28/25 00:05 2.5 MG Ipratropium [place] 0.5 mg Q6HR NEB 02/24/25 18:00 02/28/25 00:05 0.5 MG Ondansetron HCl 4 mg Q6HPRN PRN IV 02/26/25 22:30 Diphenhydramine HCl 25 mg Q6HR GT 02/27/25 12:00 02/27/25 23:39 25 MG Clonazepam 0.5 mg Q12HR GT 02/27/25 22:00 02/27/25 22:23 0.5 MG Dobutamine HCl/ Dextrose 250 ml @ 0 mls/hr Q0M IV 02/27/25 15:15 02/27/25 15:39 2.5 MLS/HR objective GENERAL: Ill appearing, intubated on ventilator. EYES: PERRL, EOMI. Anicteric. HENT: Moist mucous membranes. LUNGS: Decreased breath sounds. CARDIOVASCULAR: Regular rate and rhythm. ABDOMEN: Soft, nontender and nondistended. EXTREMITIES: No edema. SKIN: Warm, dry. laboratory and microbiology Laboratory Tests 02/27/25 03:40 Test 02/27/25 03:40 Range/Units Serum Glucose 181 H 74-106 mg/dL Problem List S/P PEA arrest. Cardiogenic shock. Acute hypoxic respiratory failure Systolic Heart failure with reduced ejection fraction. NSTEMI. Hypertension. Hyperkalemia. Small R pleural effusion. COPD with exacerbation. PNA. DCM. Transaminitis. ALEXIS. Lactic acidosis. Meth use. Leukocytosis. Type 2 [place] demand ischemia. Chronic venous stasis. Foot gangrene. L/l UE superficial thrombosis. High degree block. NSVT. Assessment/Plan Continued all current supportive medical care. Aspirin. GI prophylactics. Diuretics with Lasix. IV antibiotics as ordered. Nebulized breathing treatments. Vasopressors for hemodynamic support. Additional plan as per the hospital course. Critical care time of 45 minutes provided to include time spent evaluation of patient at bedside, when appropriate patient/family education for diagnosis, treatment plan, review of pertinent medical information and discussion of care with specialty providers and PCP. Mechanical ventilator parameters, treatment and adjustments have personally been reviewed by me and treatment plan by program advocate has also been reviewed. Dietary Evaluation Review Comments: CCHO-60 Cardiac diet, texture as tolearated when medically feasible nicotine cessation counseling Follow up with updated lab values Expected Outcomes/Goals: Improved nurition related lab values, free from nicotine Plan discussed with: SHARMILA Padilla MD Feb 28, 2025 00:24
[2025-02-28 04:31] LABS: Hematocrit 36.4 % (41.0-53.0); Hemoglobin 12.3 g/dL (13.5-17.5); Mean Corpuscular Hemoglobin 30.9 pg (28.0-32.0); Mean Corpuscular Volume 91.5 fL (80.0-100.0); Nucleated Red Blood Cells % 0.2 %
[2025-02-28 04:40] LABS: Alanine Aminotransferase 24 U/L (7-40); Alkaline Phosphatase 98 U/L (46-116); BUN/Creatinine Ratio 23.0 (10.0-20.0); Blood Urea Nitrogen 14 mg/dL (9-23); Magnesium 1.8 mg/dL (1.6-2.6); Sodium 138 mmol/L (136-145)
[2025-02-28 04:52] LABS: Albumin 2.6 g/dL (3.2-4.8); Anion Gap 7.99999 (5-15); Bilirubin, Total 1.4 mg/dL (0.2-1.0); Calcium 8.2 mg/dL (8.7-10.4); Chloride 90 mmol/L (98-107); Glucose 215 mg/dL (74-106); Potassium 3.0 mmol/L (3.5-5.1); Total Protein 5.7 g/dL (5.7-8.2)
[2025-02-28 04:53] LABS: Carbon Dioxide > 40 mmol/L (20-31)
[2025-02-28 05:01] LABS: Base Excess 15.5 mmol/L (-2.0-3.0)
[2025-02-28] MEDS: MAGNESIUM SULFATE 1GM/100ML 100 ML IV ONE (05:41)
[2025-02-28] MEDS: POTASSIUM CHL 20MEQ/100ML 100 ML IV ONE (05:41)
[2025-02-28 11:58] LABS: INR 1.17 (0.9-1.15); Partial Thromboplastin Time 37.9 SEC (24.5-34.5); Prothrombin Time 12.2 sec (9.3-11.8)
[2025-02-28] MEDS: POTASSIUM CHL 20MEQ/100ML 100 ML IV SCH (13:55)
[2025-02-28] MEDS: POTASSIUM EFFERVESENT TAB 25 MEQ GT ONE (13:55)
[2025-02-28] MEDS: NOREPINEPHRINE 8 MG/250ML KIT 250 ML IV SCH (15:58)
--- NOTE | 2025-02-28 16:15 | DVHPN2 ---
Progress Note Date Seen: Feb 28, 2025 Resident Creating Document: JANN AUGUST RESIDENT Has the PT tested + for MRSA If YES, has PT been informed?: No Medical Necessity Reason Pt with a Central, PICC or Fol: Yes The following are medically ne: Central Line, Aguilar Catheter Subjective Review of Systems Patient intubated sedated Patient vomited so feeding were reduced to 10cc/h but the goal is 65 cc The plan is to try for cpap trial tomorrow but if not, trach will be done No bowel movement recorded since 02/24 Objective vital signs Vital Sign Date Time Temp Pulse Resp B/P (MAP) Pulse Ox O2 Delivery O2 Flow Rate FiO2 02/28/25 15:58 94/61 02/28/25 15:52 79 16 95 35 02/28/25 14:00 Mechanical Ventilator+ 02/28/25 11:30 98.5 98.5 Total Intake and Output 02/27/25 02/27/25 02/28/25 15:00 23:00 07:00 Intake Total 189.523 ml 154.519 ml 428.706 ml Output Total 1650 ml 2900 ml Balance 189.523 ml -1495.481 ml -2471.294 ml medications Current Medications Medications Dose Ordered Sig/Geraldo Route Start Time Stop Time Status Last Admin Dose Admin Diagnostic Test (Pha) 1 strip ACHS 02/12/25 07:00 02/28/25 11:30 1 STRIP Insulin Human Regular ACHS SC 02/12/25 07:00 02/26/25 17:22 2 UNITS Dextrose 50 ml UD PRN IV 02/11/25 22:15 Acetaminophen 650 mg Q6HP PRN PO 02/11/25 22:15 Tamsulosin HCl 0.4 mg QPM PO 02/12/25 18:00 02/27/25 18:29 0.4 MG Aspirin 81 mg DAILY PO 02/12/25 10:00 02/28/25 09:51 81 MG Nicotine 1 patch DAILY TD 02/13/25 10:00 02/28/25 09:52 1 PATCH Midazolam HCl 100 ml @ 1 mls/hr Q24H IV 02/13/25 14:30 02/27/25 10:42 1 MLS/HR Enteral Nutritional Formula 1,000 ml 30ML/HR GT 02/14/25 12:45 02/24/25 21:02 1,000 ML Sennosides 8.6 mg HS PO 02/14/25 22:00 02/27/25 22:23 8.6 MG Quetiapine Fumarate 25 mg BID PO 02/15/25 10:00 02/28/25 09:51 25 MG Pantoprazole Sodium 40 mg DAILY IV 02/17/25 10:00 02/28/25 09:51 40 MG Lactulose 30 ml BID PO 02/17/25 22:00 02/28/25 09:51 30 ML Sodium Chloride 10 ml QSHIFT@10,22 IV 02/21/25 22:00 02/28/25 09:51 10 ML Furosemide 80 mg BIDD IV 02/22/25 08:00 02/28/25 05:40 80 MG Fentanyl Citrate 250 ml @ 2.5 mls/hr Q24H IV 02/22/25 19:15 02/27/25 17:25 5 MLS/HR Albuterol 2.5 mg Q6HR NEB 02/24/25 18:00 02/28/25 11:47 2.5 MG Ipratropium [place] 0.5 mg Q6HR NEB 02/24/25 18:00 02/28/25 11:47 0.5 MG Ondansetron HCl 4 mg Q6HPRN PRN IV 02/26/25 22:30 Diphenhydramine HCl 25 mg Q6HR GT 02/27/25 12:00 02/28/25 12:29 25 MG Clonazepam 0.5 mg Q12HR GT 02/27/25 22:00 02/28/25 10:00 0.5 MG Dobutamine HCl/ Dextrose 250 ml @ 0 mls/hr Q0M IV 02/27/25 15:15 02/28/25 12:27 2.5 MLS/HR Potassium Chloride 100 ml @ 50 mls/hr Q2H IV 02/28/25 13:15 02/28/25 17:14 02/28/25 15:57 50 MLS/HR Norepinephrine Bitartrate 250 ml @ 1.875 mls/ hr Q24H IV 02/28/25 15:45 02/28/25 15:58 9.375 MLS/HR Examination General: Overweight, afebrile, palor, mucosae are moist intubated sedated Cardiovascular: Regular S1 and S2. No murmurs, gallops or rubs. No JVD elevation. Pedal edema Respiratory: Decreased bilateral air entry on auscultation, mechanically ventilated Abdomen: Soft, nontender, nondistended, normoactive bowel sounds, no rebound tenderness, no organomegaly, no masses. Purulent vesicles on lower abdomen. Penile swelling. Small clots and Aguilar noted. Bilateral lower extremity, cyanosed, bluish, 3+ pedal edema, minimal pulses, laboratory and microbiology Laboratory Tests 02/28/25 11:32 02/28/25 03:30 Test 02/28/25 03:30 Range/Units Serum Glucose 215 H 74-106 mg/dL Microbiology Date/Time Source Procedure Growth Status 02/13/25 08:15 Nose MRSA Screen - Final Complete 02/11/25 19:38 Blood Blood Culture - Final NO GROWTH AFTER 5 DAYS OF INCUBATION. Complete Problem List/Assessment/Plan Problem List/Assessment/Plan s/p PEA arrest ROSC 4 mins cardiogenic shock Cirrhosis Acute hypoxic respiratory failure status post intubation Systolic Heart failure with reduced ejection fraction exacerbation NSTEMI Hypertension Hyperkalemia Rule out STI Acute kidney injury Peripheral arterial disease Methamphetamine use dependence Severe protein calorie malnutrition Liver ultrasound shows Heterogeneous appearing liver suggesting chronic liver disease. Plan: Recommendation: Extubation will be tried but if is not possible, patient will go for trach After trach, PEG tube will be done, until then please continue tube feedings Bilirubin stable, LFTs unremarkable. H&H stable. Monitor CMP in a.m.. Continue lactulose 30 mL b.i.d. Continue conservative management. Hepatitis panel negative Protonix 40 mg daily Plan discussed with the primary RN in which all questions have been answered Case discussed with Dr. Urena Plan discussed with: Other (rn) Dietary Evaluation Review Comments: CCHO-60 Cardiac diet, texture as tolearated when medically feasible nicotine cessation counseling Follow up with updated lab values Expected Outcomes/Goals: Improved nurition related lab values, free from nicotine JANN AUGUST RESIDENT Feb 28, 2025 16:15
--- NOTE | 2025-02-28 16:34 | DVHPN2 ---
Assessment/Plan Assessment/Plan ICU note 64 M with HTN, HFrEF 20%, DM, ascites, meth use admitted for SOB, later was found in respiratory distress, intubated and had PEA arrest, ROSC in 4 minutes. 02/14 s/p thora, 2 L out. switched to lasix drip. start TF. POCUS done, minimal tapable pocket in abdomen. wound culture with prelim growth. wound care 02/15 wound culture back, changed abx to vanc and layton, starting oral meds for weaning, patient previously agitated, to decrease prevent self extubation. lasix drip switched to 60 BID. SAT SBT tomorrow. 02/16 hold diuresis today, POCUS with improving IVC, off sedation, not waking up still. 02/17 adding diamox, metabolic alkalosis, decrease RR, holding methadone and klonazepam, off sedation, opening eyes to name, not following command, c/w SAT SBT. 02/18 off sedation and calm 02/19 continues to remain intubated and off sedation 02/20 agitated, restarting methadone and clonazepam. will d/w fam regarding trach if he continues to be difficult to sedate. positive balance, readding lasix, discontinueing fluid. 02/21 POCUS done, IVC >2cm with no excursion, severely reduced EF. net positive the past 2 days, doubling lasix dose. back on pressor. follows commands once. once stable will get CT angio to see if he will need intervention. podiatry consult 02/22 b/l UE superficial thrombus, no deep vein thrombus, dc tlc, continue to titrate off pressor, c/w diuresis. daily SAT SBT. i called family but went to . plan for extubation vs trach, possibly without full mental status if doing well during cpap 02/23 seen today, still on sedation. on and off having bradycardia and NSVT. cardio reconsulted today. starting dobutamine, c/w lasix acetazolamide 02/24 adequate diuresis, stion dobu and levo, no increase ectopy. no mental status. called fam member but went to again. consult for trach and peg. 02/27 called franco, he does not want to make medical decision and deferred to anali sister. called anali, consent signed for trach peg. 02/28 surg consult for trach. pt with minimal response, unclear if following commands. will do cpap for exercise but likely proceed with trach and LTACH transfer. called ex nannette, per ex , both sons will make medical decision together, given contact number of son through his boss. Norma Ugarte [phone] and son is Franco. Explained to Franco (son) regarding trach and peg and need of possible ppm and angiogram. he understands, will discuss with family and get back with a decision tomorrow. Per franco stanley to be reached at [phone] and [phone] (gf). franco does not want to make medical decision and defer to sister anali. d/w anali, agrees for trach peg and LTACH placement. physical exam intubated on mechanical ventilator mildly sedated obese opening eyes to name follows commands once cannot appreciate JVD mechanical breath soundsl S1 S2 systolic murmur abdomen distended b/l LE edema w/ chronic venous wounds R foot with multiple gangrene dry and wet vent ac/vc 550 16 30% PEEP 6l 7.302/50/77 drips levophed fentanyl versed labs reviewed acetinobacter, pseudomonas, e faecalis, MRSA in wound cultrue imaging cxr RLL opacity echo LVEF 20%, DCM, MR assessment and plan s/p PEA arrest ROSC 4 mins cardiogenic shock acute on chronic hypoxic RF acute on chronic systolic HF small R PLEF COPD with exacerbation PNA gp vs gn HFrEF 20% DCM transaminitis cirrhosis? ascites? ALEXIS likely VMN lactic acidosis meth use leukocytosis type 2 [place] demand ischemia DM? chronic venous stasis wound with multiple bact L testicular mass? foot gangrene b/l UE superficial thrombosis high degree block NSVT ICU SAT SBT trach peg titrate levophed to maintain MAP >60 c/w mechanical vent increase diuresis to goal net neg 1L daily c/w sedation, maintain RAAS -2, added methadone, klonopin, seroquel trend lactate, cr, LFT c/w vanc , zosyn switched to layton avoid fever VAP bundle bronchodilators hold GDMT until off pressors send A1C, lipid, tsh wound care daily SAT SBT podiatry consult CTA runoff once stable dobutamine to assist diuresis and inotropy, will dc if NSVT increased keep K 4 Ph 3 Mg 2 Diet jevity to goal DVT PPX lovenox GI PPX protonix Lines RIJ TLC NGT jaffe PICC Full code condition critical prognosis poor critical care time 45 minutes Plan discussed with: Other My Orders Orders - SYEDA VILLALOBOS MD Procedure Category Date Status Time Chest Portable XY 02/27/25 Resulted 21:14 Chest Portable XY 02/27/25 Resulted 23:03 Potassium Chl PHA 02/28/25 In Process 20meq/100ml 13:15 Norepinephrine 8 PHA 02/28/25 In Process Mg/250ml Kit 15:45 Date of Service: Feb 28, 2025 Billing Provider: SYEDA VILLALOBOS MD Common Visit Codes: [id number] CARE 30-74 MIN SYEDA VILLALOBOS MD Feb 28, 2025 16:34
--- NOTE | 2025-02-28 23:21 | DVHPN2 ---
Subjective DOS: 02/28/2025 Patient seen and examined at bedside. Sedated, intubated on mechanical ventilator. Overnight events reviewed. Reviewed: Care Plan, H&P, Labs, Medications, Previous Orders, Radiology Changes from previous H/P or p: No Changes Eyes: No Pain, No Vision change, No Conjunctivae inflammation, No Eyelid inflammation, No Other, No Redness ENT: No Ear pain, No Ear discharge, No Nose pain, No Nose discharge, No Nose congestion, No Mouth pain, No Mouth swelling, No Throat pain, No Throat swelling, No Other Cardiovascular: No Chest Pain, No Palpitations, No Orthopnea, No Paroxysmal Noc. Dyspnea, No Edema, No Lt Headedness, No Other Respiratory: No Cough, No Dry; Shortness of breath, SOB with excertion; No Wheezing, No Hemoptysis, No Pleuritic Pain, No Sputum; Other (SOB at rest) Gastrointestinal: No Nausea, No Vomiting; Abdominal Pain; No Diarrhea, No Constipation, No Melena, No Hematochezia; Other (Abdominal distention) Genitourinary: No Dysuria, No Frequency, No Incontinence, No Hematuria, No Retention, No Other Musculoskeletal: No other, No neck pain, No shoulder pain, No arm pain, No back pain, No hand pain, No leg pain, No foot pain Skin: No Rash, No Lesions, No Jaundice, No Bruising; Other (Lower extremity open wounds) Objective Vitals Vital Signs Date Time Temp Pulse Resp B/P (MAP) Pulse Ox O2 Delivery O2 Flow Rate FiO2 02/28/25 22:33 89/54 02/28/25 22:30 77 16 93 02/28/25 22:15 35 02/28/25 22:00 Mechanical Ventilator+ 02/28/25 20:00 98.1 98.1 Intake/Output Intake and Output 02/28/25 07:00 Intake Total 772.748 ml Output Total 4550 ml Balance -3777.252 ml Intake Oral 360 ml IV Total 412.748 ml Output Urine Total 4450 ml Emesis 100 ml Exam Gen.: Patient lying in bed in medical ICU. Sedated, intubated on mechanical ventilator. Head: Normocephalic, atraumatic. Eyes: PERRLA. Ears: Normal external anatomy. Throat: Endotracheal tube and orogastric tube in place. Neck: Supple, trachea midline. Chest: Transmitted breath sounds bilaterally. Decreased air entry bilaterally. No wheezing. Bibasilar crackles. Cardiovascular: Positive S1, positive S2. Regular rate and rhythm. Abdomen: Positive bowel sounds in all 4 quadrants. Soft, nontender, nondistended. : Aguilar in place. Normal external genitalia. Rectal: Deferred. Skin: Warm, dry. Intact. Extremities: 2+ radial pulses bilaterally. No lower extremity edema. Neuro: Sedated General Appearance: Other (intubate, on vent, unable to examined.) HEENT: Atraumatic, PERRLA, EOMI, Mucous membr. moist/pink Neck: Supple Lungs: Clear to auscultation, Normal air movement Cardiovascular: Regular rate, Normal S1, Normal S2, No murmurs, Gallops, Rubs Abdomen: Normal bowel sounds, Soft, No tenderness Neuro: Other (intubate, on vent , unable to examined.) Medications Current Medications Medications Dose Ordered Sig/Geraldo Route Start Time Stop Time Status Last Admin Dose Admin Diagnostic Test (Pha) 1 strip ACHS 02/12/25 07:00 02/28/25 21:41 1 STRIP Insulin Human Regular ACHS SC 02/12/25 07:00 02/26/25 17:22 2 UNITS Dextrose 50 ml UD PRN IV 02/11/25 22:15 Acetaminophen 650 mg Q6HP PRN PO 02/11/25 22:15 Aspirin 81 mg DAILY PO 02/12/25 10:00 02/28/25 09:51 81 MG Nicotine 1 patch DAILY TD 02/13/25 10:00 02/28/25 09:52 1 PATCH Midazolam HCl 100 ml @ 1 mls/hr Q24H IV 02/13/25 14:30 02/27/25 10:42 1 MLS/HR Enteral Nutritional Formula 1,000 ml 30ML/HR GT 02/14/25 12:45 02/28/25 21:46 1,000 ML Sennosides 8.6 mg HS PO 02/14/25 22:00 02/28/25 21:42 8.6 MG Quetiapine Fumarate 25 mg BID PO 02/15/25 10:00 02/28/25 21:42 25 MG Pantoprazole Sodium 40 mg DAILY IV 02/17/25 10:00 02/28/25 09:51 40 MG Lactulose 30 ml BID PO 02/17/25 22:00 02/28/25 21:42 30 ML Sodium Chloride 10 ml QSHIFT@10,22 IV 02/21/25 22:00 02/28/25 21:42 10 ML Furosemide 80 mg BIDD IV 02/22/25 08:00 02/28/25 17:21 80 MG Fentanyl Citrate 250 ml @ 2.5 mls/hr Q24H IV 02/22/25 19:15 02/27/25 17:25 5 MLS/HR Albuterol 2.5 mg Q6HR NEB 02/24/25 18:00 02/28/25 18:27 2.5 MG Ipratropium [place] 0.5 mg Q6HR NEB 02/24/25 18:00 02/28/25 18:26 0.5 MG Ondansetron HCl 4 mg Q6HPRN PRN IV 02/26/25 22:30 Diphenhydramine HCl 25 mg Q6HR GT 02/27/25 12:00 02/28/25 17:22 25 MG Clonazepam 0.5 mg Q12HR GT 02/27/25 22:00 02/28/25 21:42 0.5 MG Dobutamine HCl/ Dextrose 250 ml @ 0 mls/hr Q0M IV 02/27/25 15:15 02/28/25 12:27 2.5 MLS/HR Norepinephrine Bitartrate 250 ml @ 1.875 mls/ hr Q24H IV 02/28/25 15:45 02/28/25 15:58 9.375 MLS/HR Laboratory Results Laboratory Tests 02/28/25 03:30 02/28/25 11:32 Chemistry Test 02/28/25 03:30 Albumin 2.6 g/dL (3.2-4.8) L Calcium Level 8.2 mg/dL (8.7-10.4) L Magnesium Level 1.8 mg/dL (1.6-2.6) Phosphorus Level 2.7 mg/dL (2.4-5.1) Total Protein 5.7 g/dL (5.7-8.2) Coagulation Test 02/28/25 11:32 Prothrombin Time 12.2 sec (9.3-11.8) H Prothrombin Time INR 1.17 (0.9-1.15) H Activated Partial Thromboplast Time 37.9 SEC (24.5-34.5) H LFT Test 02/28/25 03:30 Alanine Aminotransferase (ALT) 24 U/L (7-40) Alkaline Phosphatase 98 U/L (46-116) Aspartate Amino Transferase (AST) 51 U/L (13-40) H Total Bilirubin 1.4 mg/dL (0.2-1.0) H Urinalysis Test 02/14/25 11:30 02/19/25 13:50 Urine Protein/Creatinine Ratio 0.26 Urine Total Protein < 6.0 mg/dL (1-14) Urine Osmolality 587 mOsm/kg Urine Creatinine 76.95 mg/dL (30.0-125.0) Urine Sodium 79 mmol/L (40-220) Blood Gas Results Test 02/28/25 04:42 Arterial Blood pH 7.484 (7.350-7.450) FiO2 % 35.0 Microbiology Microbiology Date/Time Source Procedure Growth Status 02/13/25 08:15 Nose MRSA Screen - Final Complete 02/11/25 19:38 Blood Blood Culture - Final NO GROWTH AFTER 5 DAYS OF INCUBATION. Complete Assessment/Plan Assessment/Plan Impression: Acute hypoxemic respiratory failure On mechanical ventilator Pleural effusion Atelectasis S/p cardiac arrest Cardiomyopathy Congestive heart failure Obesity Events: Remains on vent support On AC mode; RR 16, VT 500, PEEP 6, FiO2 35% Sedated on Versed On Fentanyl drip 100 mcg/hr. On Seroquel. Pt with minimal response, unclear if following commands. Pressors for hemodynamic support On Levophed 3 mcg/min Titrate to keep mean arterial pressure greater than 65 mmHg. Taper down pressors as tolerated Taper sedation as tolerated Plan for CPAP trial - CPAP with PS 8, PEEP of 5. SBT this AM. Pt was noted to have apneic episodes. Patients daughter, Myrna, consented for PEG/trach. OG tube was placed yesterday. Patient with on and off bradycardia and NSVT Cardiology recs appreciated Currently on Dobutamine 2.5 mcg/min for inotropic support Plan for pacemaker placement. Off dopamine. Nephrology recs appreciated. Tube feeds for nutritional support Continue antibiotics Continue bronchodilators Wound care. S/p PICC line placement - PICC line is deemed medically necessary for administration of pressors. Nephrology recs appreciated Diurese to euvolemia Monitor renal function Monitor electrolytes. Supplement as necessary.. K 3.1, potassium supplemented ABG reviewed, shows alkalemia CXR reveals cardiomegaly with pulmonary vascular congestion. Small bilateral pleural effusions with mild bibasilar atelectasis / consolidation. Abdomen x-ray shows no e/o bowel obstruction. Labs and imaging reviewed. Rest of plan as noted below. Plan: s/p intubation on mechanical ventilator. On AC mode; RR 16, VT 500, PEEP 6, FiO2 35% Titrate FIO2 to keep O2 saturation above 90%. VAP bundle. Daily ABG and CXR while intubated Patient is s/p right thoracentesis. Continue bronchodilators. Continue antibiotics. Follow up cultures. Monitor WBC count Pressors as necessary for hemodynamic support Titrate to keep mean arterial pressure greater than 65 mmHg. Echo report reviewed; EF approximately 20% Cardiology recs appreciated. On Protonix, Sandostatin Monitor hemoglobin Tube feeds for nutritional support Follow up GI recs Diurese with Lasix Monitor renal function Monitor electrolytes. Supplement as necessary. Monitor ins and outs. Maintain euvolemia. GI prophylaxis -Protonix. DVT prophylaxis - Lovenox. Prognosis: Poor given patient's multiple co-morbidities. Condition: Critical Rest of plan per hospitalist and other consultants. A total of 35 minutes of critical care time was spent reviewing the patient record, examining the patient, making a diagnostic and therapeutic plan, discussing this plan with the medical personnel, following up on diagnostic studies and following the patient for clinical stability excluding any and all procedures. At least 50% of this time was spent in direct, [id number] contact. Thank you, Dr. Blas, for allowing me to participate in this patient's care. Further recommendations will depend on the patient's clinical course. Please do not hesitate to contact me if you have any questions or concerns. This medical document was created using an electronic medical record system with [employer] dictation system. Although these documentations are being carefully reviewed, there may still be some phonetic and typographical changes. The errors are purely typographical, due to imperfection on the software program, and do not reflect any compromise in the patient's medical care. Plan discussed with: Other (LEIGHTON Ward) My Orders Orders - DOLORES VELAZQUEZ MD Procedure Category Date Status Time * Radiologist Consult CONS 12/16/25 Transmitted 08:00 Abg W/ Co-Ox RT 02/28/25 Logged 04:46 Cpap Trial For Am ORDERS 02/28/25 Transmitted 09:54 Visit Coding Pulmonary Billing Provider: DOLORES VELAZQUEZ MD Date of Service if different f: Feb 28, 2025 Common Visit Codes: [id number] INP/OBS CARE(HIGH), [id number] CARE 30-74 MIN DOLORES VELAZQUEZ MD Feb 28, 2025 23:20
--- NOTE | 2025-02-28 23:34 | DVHPN2 ---
Progress Note - Dictate Date Seen: Feb 28, 2025 Medical Necessity Reason Pt with a Central, PICC or Fol: Yes The following are medically ne: Central Line, Aguilar Catheter Subjective Patient was seen and evaluated in follow up in the ICU. Patient is intubated and sedated on ventilator. 35% FiO2. K 3, CL 90, CO2 >40, CA 8.2, AST 51. vital signs Vital Sign Date Time Temp Pulse Resp B/P (MAP) Pulse Ox O2 Delivery O2 Flow Rate FiO2 02/28/25 12:30 72 16 92/57 (69) 92 02/28/25 12:00 Mechanical Ventilator+ 35 35 02/28/25 11:30 98.5 98.5 Total Intake and Output 02/27/25 02/27/25 02/28/25 15:00 23:00 07:00 Intake Total 189.523 ml 154.519 ml 428.706 ml Output Total 1650 ml 2900 ml Balance 189.523 ml -1495.481 ml -2471.294 ml medications Current Medications Medications Dose Ordered Sig/Geraldo Route Start Time Stop Time Status Last Admin Dose Admin Diagnostic Test (Pha) 1 strip ACHS 02/12/25 07:00 02/28/25 11:30 1 STRIP Insulin Human Regular ACHS SC 02/12/25 07:00 02/26/25 17:22 2 UNITS Dextrose 50 ml UD PRN IV 02/11/25 22:15 Acetaminophen 650 mg Q6HP PRN PO 02/11/25 22:15 Tamsulosin HCl 0.4 mg QPM PO 02/12/25 18:00 02/27/25 18:29 0.4 MG Aspirin 81 mg DAILY PO 02/12/25 10:00 02/28/25 09:51 81 MG Nicotine 1 patch DAILY TD 02/13/25 10:00 02/28/25 09:52 1 PATCH Midazolam HCl 100 ml @ 1 mls/hr Q24H IV 02/13/25 14:30 02/27/25 10:42 1 MLS/HR Enteral Nutritional Formula 1,000 ml 30ML/HR GT 02/14/25 12:45 02/24/25 21:02 1,000 ML Sennosides 8.6 mg HS PO 02/14/25 22:00 02/27/25 22:23 8.6 MG Quetiapine Fumarate 25 mg BID PO 02/15/25 10:00 02/28/25 09:51 25 MG Pantoprazole Sodium 40 mg DAILY IV 02/17/25 10:00 02/28/25 09:51 40 MG Lactulose 30 ml BID PO 02/17/25 22:00 02/28/25 09:51 30 ML Sodium Chloride 10 ml QSHIFT@10,22 IV 02/21/25 22:00 02/28/25 09:51 10 ML Furosemide 80 mg BIDD IV 02/22/25 08:00 02/28/25 05:40 80 MG Norepinephrine Bitartrate 32 mg/ Sodium Chloride 250 ml @ 0.469 mls/ hr Q24H IV 02/22/25 15:00 02/26/25 02:11 4.688 MLS/HR Fentanyl Citrate 250 ml @ 2.5 mls/hr Q24H IV 02/22/25 19:15 02/27/25 17:25 5 MLS/HR Albuterol 2.5 mg Q6HR NEB 02/24/25 18:00 02/28/25 11:47 2.5 MG Ipratropium [place] 0.5 mg Q6HR NEB 02/24/25 18:00 02/28/25 11:47 0.5 MG Ondansetron HCl 4 mg Q6HPRN PRN IV 02/26/25 22:30 Diphenhydramine HCl 25 mg Q6HR GT 02/27/25 12:00 02/28/25 12:29 25 MG Clonazepam 0.5 mg Q12HR GT 02/27/25 22:00 02/28/25 10:00 0.5 MG Dobutamine HCl/ Dextrose 250 ml @ 0 mls/hr Q0M IV 02/27/25 15:15 02/28/25 12:27 2.5 MLS/HR objective GENERAL: Ill appearing, intubated on ventilator. EYES: PERRL, EOMI. Anicteric. HENT: Moist mucous membranes. LUNGS: Decreased breath sounds. CARDIOVASCULAR: Regular rate and rhythm. ABDOMEN: Soft, nontender and nondistended. EXTREMITIES: No edema. SKIN: Warm, dry. laboratory and microbiology Laboratory Tests 02/28/25 11:32 02/28/25 03:30 Test 02/28/25 03:30 Range/Units Serum Glucose 215 H 74-106 mg/dL Problem List S/P PEA arrest. Cardiogenic shock. Acute hypoxic respiratory failure Systolic Heart failure with reduced ejection fraction. NSTEMI. Hypertension. Hyperkalemia. Small R pleural effusion. COPD with exacerbation. PNA. DCM. Transaminitis. ALEXIS. Lactic acidosis. Meth use. Leukocytosis. Type 2 [place] demand ischemia. Chronic venous stasis. Foot gangrene. L/l UE superficial thrombosis. High degree block. NSVT. Assessment/Plan Continued all current supportive medical care. Aspirin. GI prophylactics. Diuretics with Lasix. IV antibiotics as ordered. Nebulized breathing treatments. Vasopressors for hemodynamic support. Additional plan as per the hospital course. Critical care time of 45 minutes provided to include time spent evaluation of patient at bedside, when appropriate patient/family education for diagnosis, treatment plan, review of pertinent medical information and discussion of care with specialty providers and PCP. Mechanical ventilator parameters, treatment and adjustments have personally been reviewed by me and treatment plan by marine fire fighter has also been reviewed. Dietary Evaluation Review Comments: CCHO-60 Cardiac diet, texture as tolearated when medically feasible nicotine cessation counseling Follow up with updated lab values Expected Outcomes/Goals: Improved nurition related lab values, free from nicotine Plan discussed with: Other SHARMILA BENDER MD Feb 28, 2025 13:09
[2025-03-01] VITALS (113 sets, daily range): BP systolic 70–133; BP diastolic 41–88; PULSE 69–128; RESP 9–26; TEMP 97–98.8; O2SAT 89–100
[2025-03-01 03:56] LABS: Hematocrit 39.5 % (41.0-53.0); Hemoglobin 13.3 g/dL (13.5-17.5); Mean Corpuscular Hemoglobin 30.7 pg (28.0-32.0); Mean Corpuscular Volume 91.4 fL (80.0-100.0); Nucleated Red Blood Cells % 0.1 %
[2025-03-01 04:29] LABS: Alanine Aminotransferase 28 U/L (7-40); Alkaline Phosphatase 115 U/L (46-116); BUN/Creatinine Ratio 19.0 (10.0-20.0); Blood Urea Nitrogen 12 mg/dL (9-23); Glucose 100 mg/dL (74-106); Magnesium 2.0 mg/dL (1.6-2.6); Sodium 141 mmol/L (136-145); Total Protein 6.3 g/dL (5.7-8.2)
[2025-03-01 04:45] LABS: Anion Gap 8.99999 (5-15); Chloride 92 mmol/L (98-107); Potassium 3.2 mmol/L (3.5-5.1)
[2025-03-01 04:46] LABS: Albumin 2.9 g/dL (3.2-4.8); Bilirubin, Total 1.3 mg/dL (0.2-1.0); Calcium 8.7 mg/dL (8.7-10.4); Carbon Dioxide > 40 mmol/L (20-31)
[2025-03-01 06:13] LABS: Base Excess 13.4 mmol/L (-2.0-3.0)
[2025-03-01] MEDS: POTASSIUM CHL 20MEQ/100ML 100 ML IV SCH (06:18)
[2025-03-01] MEDS: POTASSIUM EFFERVESENT TAB 25 MEQ GT ONE (06:18)
[2025-03-01 12:45] LABS: Base Excess 15.0 mmol/L (-2.0-3.0)
--- NOTE | 2025-03-01 14:21 | DVHPN2 ---
Assessment/Plan Assessment/Plan ICU note 64 M with HTN, HFrEF 20%, DM, ascites, meth use admitted for SOB, later was found in respiratory distress, intubated and had PEA arrest, ROSC in 4 minutes. 02/14 s/p thora, 2 L out. switched to lasix drip. start TF. POCUS done, minimal tapable pocket in abdomen. wound culture with prelim growth. wound care 02/15 wound culture back, changed abx to vanc and layton, starting oral meds for weaning, patient previously agitated, to decrease prevent self extubation. lasix drip switched to 60 BID. SAT SBT tomorrow. 02/16 hold diuresis today, POCUS with improving IVC, off sedation, not waking up still. 02/17 adding diamox, metabolic alkalosis, decrease RR, holding methadone and klonazepam, off sedation, opening eyes to name, not following command, c/w SAT SBT. 02/18 off sedation and calm 02/19 continues to remain intubated and off sedation 02/20 agitated, restarting methadone and clonazepam. will d/w fam regarding trach if he continues to be difficult to sedate. positive balance, readding lasix, discontinueing fluid. 02/21 POCUS done, IVC >2cm with no excursion, severely reduced EF. net positive the past 2 days, doubling lasix dose. back on pressor. follows commands once. once stable will get CT angio to see if he will need intervention. podiatry consult 02/22 b/l UE superficial thrombus, no deep vein thrombus, dc tlc, continue to titrate off pressor, c/w diuresis. daily SAT SBT. i called family but went to . plan for extubation vs trach, possibly without full mental status if doing well during cpap 02/23 seen today, still on sedation. on and off having bradycardia and NSVT. cardio reconsulted today. starting dobutamine, c/w lasix acetazolamide 02/24 adequate diuresis, stion dobu and levo, no increase ectopy. no mental status. called fam member but went to again. consult for trach and peg. 02/27 called franco, he does not want to make medical decision and deferred to anali sister. called anali, consent signed for trach peg. 02/28 surg consult for trach. pt with minimal response, unclear if following commands. will do cpap for exercise but likely proceed with trach and LTACH transfer. 03/01 pending trach today. called ex nannette, per ex , both sons will make medical decision together, given contact number of son through his boss. Norma Ugarte [phone] and son is Franco. Explained to Franco (son) regarding trach and peg and need of possible ppm and angiogram. he understands, will discuss with family and get back with a decision tomorrow. Per franco stanley to be reached at [phone] and [phone] (gf). franco does not want to make medical decision and defer to sister anali. d/w anali, agrees for trach peg and LTACH placement. physical exam intubated on mechanical ventilator mildly sedated obese opening eyes to name follows commands once cannot appreciate JVD mechanical breath soundsl S1 S2 systolic murmur abdomen distended b/l LE edema w/ chronic venous wounds R foot with multiple gangrene dry and wet vent ac/vc 550 16 30% PEEP 6l 7.302/50/77 drips levophed fentanyl versed labs reviewed acetinobacter, pseudomonas, e faecalis, MRSA in wound cultrue imaging cxr RLL opacity echo LVEF 20%, DCM, MR assessment and plan s/p PEA arrest ROSC 4 mins cardiogenic shock acute on chronic hypoxic RF acute on chronic systolic HF small R PLEF COPD with exacerbation PNA gp vs gn HFrEF 20% DCM transaminitis cirrhosis? ascites? ALEXIS likely VMN lactic acidosis meth use leukocytosis type 2 [place] demand ischemia DM? chronic venous stasis wound with multiple bact L testicular mass? foot gangrene b/l UE superficial thrombosis high degree block NSVT ICU SAT SBT trach peg titrate levophed to maintain MAP >60 c/w mechanical vent increase diuresis to goal net neg 1L daily c/w sedation, maintain RAAS -2, added methadone, klonopin, seroquel trend lactate, cr, LFT c/w vanc , zosyn switched to [place] avoid fever VAP bundle bronchodilators hold GDMT until off pressors send A1C, lipid, tsh wound care daily SAT SBT podiatry consult CTA runoff once stable dobutamine to assist diuresis and inotropy, will dc if NSVT increased keep K 4 Ph 3 Mg 2 Diet jevity to goal DVT PPX lovenox GI PPX protonix Lines RIJ TLC NGT jaffe PICC Full code condition critical prognosis poor critical care time 45 minutes Plan discussed with: Patient My Orders Orders - SYEDA VILLALOBOS MD Procedure Category Date Status Time Norepinephrine 8 PHA 02/28/25 In Process Mg/250ml Kit 15:45 Cpap Trial For Am ORDERS 03/01/25 Transmitted 10:08 Abg W/ Co-Ox RT 03/01/25 Logged 12:30 Date of Service: Mar 01, 2025 Billing Provider: SYEDA VILLALOBOS MD Common Visit Codes: [id number] CARE 30-74 MIN SYEDA VILLALOBOS MD Mar 01, 2025 14:21
--- NOTE | 2025-03-01 14:32 | DVHPN2 ---
Progress Note Date Seen: Mar 01, 2025 Resident Creating Document: JANN AUGUST RESIDENT Has the PT tested + for MRSA If YES, has PT been informed?: No Medical Necessity Reason Pt with a Central, PICC or Fol: Yes The following are medically ne: Central Line, Aguilar Catheter Subjective Review of Systems Patient intubated sedated Feeding on hold due to cpap trial No bowel movement recorded since 02/24 Objective vital signs Vital Sign Date Time Temp Pulse Resp B/P (MAP) Pulse Ox O2 Delivery O2 Flow Rate FiO2 03/01/25 14:00 81 12 106/58 (74) 95 35 03/01/25 11:40 Mechanical Ventilator+ 03/01/25 08:00 98.3 98.3 Total Intake and Output 02/28/25 02/28/25 03/01/25 15:00 23:00 07:00 Intake Total 113.632 ml 819.776 ml 533.190 ml Output Total 1450 ml 1950 ml Balance 113.632 ml -630.224 ml -1416.810 ml medications Current Medications Medications Dose Ordered Sig/Geraldo Route Start Time Stop Time Status Last Admin Dose Admin Diagnostic Test (Pha) 1 strip ACHS 02/12/25 07:00 03/01/25 11:08 1 STRIP Insulin Human Regular ACHS SC 02/12/25 07:00 02/26/25 17:22 2 UNITS Dextrose 50 ml UD PRN IV 02/11/25 22:15 Acetaminophen 650 mg Q6HP PRN PO 02/11/25 22:15 Aspirin 81 mg DAILY PO 02/12/25 10:00 03/01/25 09:17 81 MG Nicotine 1 patch DAILY TD 02/13/25 10:00 03/01/25 09:17 1 PATCH Midazolam HCl 100 ml @ 1 mls/hr Q24H IV 02/13/25 14:30 02/27/25 10:42 1 MLS/HR Enteral Nutritional Formula 1,000 ml 30ML/HR GT 02/14/25 12:45 02/28/25 21:46 1,000 ML Sennosides 8.6 mg HS PO 02/14/25 22:00 02/28/25 21:42 8.6 MG Quetiapine Fumarate 25 mg BID PO 02/15/25 10:00 03/01/25 09:16 25 MG Pantoprazole Sodium 40 mg DAILY IV 02/17/25 10:00 03/01/25 09:16 40 MG Lactulose 30 ml BID PO 02/17/25 22:00 03/01/25 09:17 30 ML Sodium Chloride 10 ml QSHIFT@10,22 IV 02/21/25 22:00 03/01/25 09:17 10 ML Furosemide 80 mg BIDD IV 02/22/25 08:00 03/01/25 06:19 80 MG Fentanyl Citrate 250 ml @ 2.5 mls/hr Q24H IV 02/22/25 19:15 02/27/25 17:25 5 MLS/HR Albuterol 2.5 mg Q6HR NEB 02/24/25 18:00 03/01/25 12:14 2.5 MG Ipratropium [place] 0.5 mg Q6HR NEB 02/24/25 18:00 03/01/25 12:14 0.5 MG Ondansetron HCl 4 mg Q6HPRN PRN IV 02/26/25 22:30 Diphenhydramine HCl 25 mg Q6HR GT 02/27/25 12:00 03/01/25 06:36 25 MG Clonazepam 0.5 mg Q12HR GT 02/27/25 22:00 03/01/25 11:25 0.5 MG Dobutamine HCl/ Dextrose 250 ml @ 0 mls/hr Q0M IV 02/27/25 15:15 03/01/25 09:19 11.94 MLS/HR Norepinephrine Bitartrate 250 ml @ 1.875 mls/ hr Q24H IV 02/28/25 15:45 02/28/25 15:58 9.375 MLS/HR Examination General: Overweight, afebrile, palor, mucosae are moist intubated sedated Cardiovascular: Regular S1 and S2. No murmurs, gallops or rubs. No JVD elevation. Pedal edema Respiratory: Decreased bilateral air entry on auscultation, mechanically ventilated Abdomen: Soft, nontender, nondistended, normoactive bowel sounds, no rebound tenderness, no organomegaly, no masses. Purulent vesicles on lower abdomen. Penile swelling. Small clots and Aguilar noted. Bilateral lower extremity, cyanosed, bluish, 3+ pedal edema, minimal pulses laboratory and microbiology Laboratory Tests 03/01/25 03:00 Test 03/01/25 03:00 Range/Units Serum Glucose 100 # 74-106 mg/dL Microbiology Date/Time Source Procedure Growth Status 02/13/25 08:15 Nose MRSA Screen - Final Complete 02/11/25 19:38 Blood Blood Culture - Final NO GROWTH AFTER 5 DAYS OF INCUBATION. Complete Problem List/Assessment/Plan Problem List/Assessment/Plan s/p PEA arrest ROSC 4 mins cardiogenic shock Cirrhosis Acute hypoxic respiratory failure status post intubation Systolic Heart failure with reduced ejection fraction exacerbation NSTEMI Hypertension Hyperkalemia Rule out STI Acute kidney injury Peripheral arterial disease Methamphetamine use dependence Severe protein calorie malnutrition Liver ultrasound shows Heterogeneous appearing liver suggesting chronic liver disease. Plan: Recommendation: Extubation will be tried but if is not possible, patient will go for trach After trach, PEG tube will be done, until then please continue tube feedings Bilirubin stable, LFTs unremarkable. H&H stable. Monitor CMP in a.m.. Continue lactulose 30 mL b.i.d. Continue conservative management. Hepatitis panel negative Protonix 40 mg daily Plan discussed with the primary RN in which all questions have been answered Case discussed with Dr. Urena Plan discussed with: Other (rn) Dietary Evaluation Review Comments: CCHO-60 Cardiac diet, texture as tolearated when medically feasible nicotine cessation counseling Follow up with updated lab values Expected Outcomes/Goals: Improved nurition related lab values, free from nicotine JANN AUGUST RESIDENT Mar 01, 2025 14:32
--- NOTE | 2025-03-01 18:23 | DVH ---
CHEST RADIOGRAPH INDICATION: s/p right thoracentesis TECHNIQUE: XY CHEST XRAY 1 VIEW COMPARISON: None FINDINGS: Endotracheal tube tip projects approximately 8.1 cm above the veronica. The left PICC line tip projects over the SVC. Nasogastric tube projects towards stomach. The cardiac silhouette is enlarged. The lungs demonstrate bilateral patchy airspace opacities. The pulmonary vasculature is prominent. Small left pleural effusion. Aortic atherosclerotic disease.. There is no pneumothorax. IMPRESSION: As above
--- NOTE | 2025-03-01 21:06 | DVH ---
CHEST RADIOGRAPH INDICATION: ett advanced TECHNIQUE: Single frontal view of the chest was obtained COMPARISON: XY CHEST XRAY 1 VIEW on DOS: 03/01/25, XY CHEST PORTABLE on DOS: 02/27/25, XY CHEST PORTABLE on DOS: 02/27/25 FINDINGS: Lines and Tubes: Endotracheal tube is 4 cm above the veronica. There is a PICC line from the left arm with the tip or or Lungs: Patchy airspace disease is is noted in both lung bases. Pleura: No effusion. No pneumothorax. Cardiomediastinal contours: Unremarkable Bones: No acute osseous abnormality. IMPRESSION: 1. Endotracheal tube in place 4 cm above the veronica. 2. PICC line from the left arm in place with the tip in the superior vena cava.
--- NOTE | 2025-03-01 21:13 | DVHNC2 ---
Procedure - Thoracentesis Procedure Note under ultrasound guidance INDICATION: Right sided pleural effusion PHYSICIAN: Genna Vizcaino MD ASST: LEIGHTON Bright; PGY1 Dr. Abraham CONSENT: Consent was obtained from patient/patient's HCP prior to the procedure. Indications, risks, and benefits were explained at length. Time out time: 1725 hours Risks and benefits of the procedure and sedation options and risks were discussed with the patient/patient's HCP. All questions were answered and informed consent was obtained. Patient identification and proposed procedure were verified prior to the procedure by the physician, and the nurse in the patient's room. PROCEDURE SUMMARY: A time out was performed and the chest x-ray was reviewed, the appropriate side was confirmed and marked. My hands were washed immediately prior to the procedure. I wore a surgical cap, mask with protective eyewear, sterile gown and sterile gloves throughout the procedure. The patient was prepped and draped in a sterile manner using chlorhexidine scrub after the appropriate level was percussed and confirmed by ultrasound. 1% lidocaine was used to anesthesize the skin, subcutaneous tissue, superior aspect of the rib periosteum and parietal pleura. A finder needle was then introduced over the superior aspect of the rib to locate the pleural fluid; yellow-straw colored fluid was aspirated at a depth of approximately 2 cm. A 10-blade scalpel was used to angelica the skin at the insertion site. Under real-time ultrasound guidance, the 5 Hungarian Yueh Thora-Centesis needle was then introduced through the skin incision into the pleural space using negative aspiration pressure. The thoracentesis catheter was then threaded without difficulty. 650 ml of yellow-straw colored fluid was removed without difficulty. The catheter was then removed. No immediate complications were noted during the procedure. Using the linear probe, lung sliding was noted anteriorly and posteriorly and are an indication of no pneumothorax. A post-procedure chest x-ray revealed interval reduction in right pleural effusion. The fluid will be sent for studies cell count and differential, fluid LDH, glucose, albumin and total protein, gram stain and culture, and cytology. Estimated blood loss is less than 5 mL. CPT: 28355 Visit Coding Pulmonary Billing Provider: DOLORES VIZCAINO MD Date of Service if different f: Mar 01, 2025 Common Visit Codes: PROCEDURE ONLY Procedure Codes: [id number] W/PUNCT (98841 Right thoracentesis) DOLORES VIZCAINO MD Mar 01, 2025 21:13
[2025-03-02] VITALS (111 sets, daily range): BP systolic 49–120; BP diastolic 26–77; PULSE 68–110; RESP 10–25; TEMP 96.9–98.1; O2SAT 89–100
[2025-03-02 03:43] LABS: Hematocrit 39.8 % (41.0-53.0); Hemoglobin 13.2 g/dL (13.5-17.5); Mean Corpuscular Hemoglobin 30.3 pg (28.0-32.0); Mean Corpuscular Volume 91.1 fL (80.0-100.0); Nucleated Red Blood Cells % 0.1 %
[2025-03-02 03:59] LABS: Alanine Aminotransferase 29 U/L (7-40); Alkaline Phosphatase 116 U/L (46-116); Anion Gap 8 (5-15); BUN/Creatinine Ratio 14.8 (10.0-20.0); Calcium 8.8 mg/dL (8.7-10.4); Glucose 102 mg/dL (74-106); Magnesium 1.9 mg/dL (1.6-2.6); Sodium 140 mmol/L (136-145); Total Protein 6.3 g/dL (5.7-8.2)
[2025-03-02 04:04] LABS: Albumin 2.9 g/dL (3.2-4.8); Bilirubin, Total 1.3 mg/dL (0.2-1.0); Blood Urea Nitrogen 9 mg/dL (9-23); Carbon Dioxide 40 mmol/L (20-31); Chloride 92 mmol/L (98-107); Potassium 3.1 mmol/L (3.5-5.1)
--- NOTE | 2025-03-02 04:33 | DVHPN2 ---
Progress Note - Dictate Date Seen: Mar 01, 2025 Has the PT tested + for MRSA If YES, has PT been informed?: No Medical Necessity Reason Pt with a Central, PICC or Fol: Yes The following are medically ne: Central Line, Aguilar Catheter Subjective Patient was seen and evaluated in follow up in the ICU. Patient is intubated on ventilator. 35% FiO2. Patient is off sedation. Per RN, scrotum and upper extremities are swollen, 1+ at right arm and non pitting on the left. WBC 4.3, K 3.2, CL 92, CO2 >40, AST 58. vital signs Vital Sign Date Time Temp Pulse Resp B/P (MAP) Pulse Ox O2 Delivery O2 Flow Rate FiO2 03/01/25 12:14 79 12 103/67 (79) 95 35 03/01/25 11:40 Mechanical Ventilator+ 03/01/25 08:00 98.3 98.3 Total Intake and Output 02/28/25 02/28/25 03/01/25 15:00 23:00 07:00 Intake Total 113.632 ml 819.776 ml 533.190 ml Output Total 1450 ml 1950 ml Balance 113.632 ml -630.224 ml -1416.810 ml medications Current Medications Medications Dose Ordered Sig/Geraldo Route Start Time Stop Time Status Last Admin Dose Admin Diagnostic Test (Pha) 1 strip ACHS 02/12/25 07:00 03/01/25 11:08 1 STRIP Insulin Human Regular ACHS SC 02/12/25 07:00 02/26/25 17:22 2 UNITS Dextrose 50 ml UD PRN IV 02/11/25 22:15 Acetaminophen 650 mg Q6HP PRN PO 02/11/25 22:15 Aspirin 81 mg DAILY PO 02/12/25 10:00 03/01/25 09:17 81 MG Nicotine 1 patch DAILY TD 02/13/25 10:00 03/01/25 09:17 1 PATCH Midazolam HCl 100 ml @ 1 mls/hr Q24H IV 02/13/25 14:30 02/27/25 10:42 1 MLS/HR Enteral Nutritional Formula 1,000 ml 30ML/HR GT 02/14/25 12:45 02/28/25 21:46 1,000 ML Sennosides 8.6 mg HS PO 02/14/25 22:00 02/28/25 21:42 8.6 MG Quetiapine Fumarate 25 mg BID PO 02/15/25 10:00 03/01/25 09:16 25 MG Pantoprazole Sodium 40 mg DAILY IV 02/17/25 10:00 03/01/25 09:16 40 MG Lactulose 30 ml BID PO 02/17/25 22:00 03/01/25 09:17 30 ML Sodium Chloride 10 ml QSHIFT@10,22 IV 02/21/25 22:00 03/01/25 09:17 10 ML Furosemide 80 mg BIDD IV 02/22/25 08:00 03/01/25 06:19 80 MG Fentanyl Citrate 250 ml @ 2.5 mls/hr Q24H IV 02/22/25 19:15 02/27/25 17:25 5 MLS/HR Albuterol 2.5 mg Q6HR NEB 02/24/25 18:00 03/01/25 12:14 2.5 MG Ipratropium [place] 0.5 mg Q6HR NEB 02/24/25 18:00 03/01/25 12:14 0.5 MG Ondansetron HCl 4 mg Q6HPRN PRN IV 02/26/25 22:30 Diphenhydramine HCl 25 mg Q6HR GT 02/27/25 12:00 03/01/25 06:36 25 MG Clonazepam 0.5 mg Q12HR GT 02/27/25 22:00 03/01/25 11:25 0.5 MG Dobutamine HCl/ Dextrose 250 ml @ 0 mls/hr Q0M IV 02/27/25 15:15 03/01/25 09:19 11.94 MLS/HR Norepinephrine Bitartrate 250 ml @ 1.875 mls/ hr Q24H IV 02/28/25 15:45 02/28/25 15:58 9.375 MLS/HR objective GENERAL: Ill appearing, intubated on ventilator. EYES: PERRL, EOMI. Anicteric. HENT: Moist mucous membranes. LUNGS: Decreased breath sounds. CARDIOVASCULAR: Regular rate and rhythm. ABDOMEN: Soft, nontender and nondistended. EXTREMITIES: No edema. SKIN: Warm, dry. laboratory and microbiology Laboratory Tests 03/01/25 03:00 Test 03/01/25 03:00 Range/Units Serum Glucose 100 # 74-106 mg/dL Problem List S/P PEA arrest. Cardiogenic shock. Acute hypoxic respiratory failure Systolic Heart failure with reduced ejection fraction. NSTEMI. Hypertension. Hyperkalemia. Small R pleural effusion. COPD with exacerbation. PNA. DCM. Transaminitis. ALEXIS. Lactic acidosis. Meth use. Leukocytosis. Type 2 ME demand ischemia. Chronic venous stasis. Foot gangrene. L/l UE superficial thrombosis. High degree block. NSVT. Assessment/Plan Continued all current supportive medical care. Aspirin. GI prophylactics. Diuretics with Lasix. IV antibiotics as ordered. Nebulized breathing treatments. Vasopressors for hemodynamic support. Additional plan as per the hospital course. Critical care time of 45 minutes provided to include time spent evaluation of patient at bedside, when appropriate patient/family education for diagnosis, treatment plan, review of pertinent medical information and discussion of care with specialty providers and PCP. Mechanical ventilator parameters, treatment and adjustments have personally been reviewed by me and treatment plan by hospital plan administrator has also been reviewed. Dietary Evaluation Review Comments: CCHO-60 Cardiac diet, texture as tolearated when medically feasible nicotine cessation counseling Follow up with updated lab values Expected Outcomes/Goals: Improved nurition related lab values, free from nicotine Plan discussed with: Other SHARMILA BENDER MD Mar 01, 2025 12:48
[2025-03-02] MEDS: POTASSIUM CHL 20MEQ/100ML 100 ML IV SCH ×2 (05:55→18:55)
--- NOTE | 2025-03-02 05:58 | DVHPN2 ---
Subjective DOS: 03/01/2025 Patient seen and examined at bedside. Sedated, intubated on mechanical ventilator. Overnight events reviewed. Reviewed: Care Plan, H&P, Labs, Medications, Previous Orders, Radiology Changes from previous H/P or p: No Changes Eyes: No Pain, No Vision change, No Conjunctivae inflammation, No Eyelid inflammation, No Other, No Redness ENT: No Ear pain, No Ear discharge, No Nose pain, No Nose discharge, No Nose congestion, No Mouth pain, No Mouth swelling, No Throat pain, No Throat swelling, No Other Cardiovascular: No Chest Pain, No Palpitations, No Orthopnea, No Paroxysmal Noc. Dyspnea, No Edema, No Lt Headedness, No Other Respiratory: No Cough, No Dry; Shortness of breath, SOB with excertion; No Wheezing, No Hemoptysis, No Pleuritic Pain, No Sputum; Other (SOB at rest) Gastrointestinal: No Nausea, No Vomiting; Abdominal Pain; No Diarrhea, No Constipation, No Melena, No Hematochezia; Other (Abdominal distention) Genitourinary: No Dysuria, No Frequency, No Incontinence, No Hematuria, No Retention, No Other Musculoskeletal: No other, No neck pain, No shoulder pain, No arm pain, No back pain, No hand pain, No leg pain, No foot pain Skin: No Rash, No Lesions, No Jaundice, No Bruising; Other (Lower extremity open wounds) Objective Vitals Vital Signs Date Time Temp Pulse Resp B/P (MAP) Pulse Ox O2 Delivery O2 Flow Rate FiO2 03/02/25 04:00 72 03/02/25 04:00 16 95 Mechanical Ventilator+ 30 30 03/02/25 03:40 98/57 (71) 03/02/25 01:00 97.5 97.5 Intake/Output Intake and Output 03/02/25 07:00 Intake Total 687.626 ml Output Total 2150 ml Balance -1462.374 ml Intake Oral 60 ml IV Total 577.626 ml Tube Feeding 0 ml Other 50 ml Output Urine Total 2150 ml Exam Gen.: Patient lying in bed in medical ICU. Sedated, intubated on mechanical ventilator. Head: Normocephalic, atraumatic. Eyes: PERRLA. Ears: Normal external anatomy. Throat: Endotracheal tube and orogastric tube in place. Neck: Supple, trachea midline. Chest: Transmitted breath sounds bilaterally. Decreased air entry bilaterally. No wheezing. Bibasilar crackles. Cardiovascular: Positive S1, positive S2. Regular rate and rhythm. Abdomen: Positive bowel sounds in all 4 quadrants. Soft, nontender, nondistended. : Aguilar in place. Normal external genitalia. Rectal: Deferred. Skin: Warm, dry. Intact. Extremities: 2+ radial pulses bilaterally. No lower extremity edema. Neuro: Sedated General Appearance: Other (intubate, on vent, unable to examined.) HEENT: Atraumatic, PERRLA, EOMI, Mucous membr. moist/pink Neck: Supple Lungs: Clear to auscultation, Normal air movement Cardiovascular: Regular rate, Normal S1, Normal S2, No murmurs, Gallops, Rubs Abdomen: Normal bowel sounds, Soft, No tenderness Neuro: Other (intubate, on vent , unable to examined.) Medications Current Medications Medications Dose Ordered Sig/Geraldo Route Start Time Stop Time Status Last Admin Dose Admin Diagnostic Test (Pha) 1 strip ACHS 02/12/25 07:00 03/01/25 21:44 1 STRIP Insulin Human Regular ACHS SC 02/12/25 07:00 02/26/25 17:22 2 UNITS Dextrose 50 ml UD PRN IV 02/11/25 22:15 Acetaminophen 650 mg Q6HP PRN PO 02/11/25 22:15 Aspirin 81 mg DAILY PO 02/12/25 10:00 03/01/25 09:17 81 MG Nicotine 1 patch DAILY TD 02/13/25 10:00 03/01/25 09:17 1 PATCH Midazolam HCl 100 ml @ 1 mls/hr Q24H IV 02/13/25 14:30 02/27/25 10:42 1 MLS/HR Enteral Nutritional Formula 1,000 ml 30ML/HR GT 02/14/25 12:45 03/01/25 21:38 1,000 ML Sennosides 8.6 mg HS PO 02/14/25 22:00 03/01/25 21:22 8.6 MG Quetiapine Fumarate 25 mg BID PO 02/15/25 10:00 03/01/25 21:28 25 MG Pantoprazole Sodium 40 mg DAILY IV 02/17/25 10:00 03/01/25 09:16 40 MG Lactulose 30 ml BID PO 02/17/25 22:00 03/01/25 21:22 30 ML Sodium Chloride 10 ml QSHIFT@10,22 IV 02/21/25 22:00 03/01/25 21:28 10 ML Furosemide 80 mg BIDD IV 02/22/25 08:00 03/01/25 17:55 80 MG Fentanyl Citrate 250 ml @ 2.5 mls/hr Q24H IV 02/22/25 19:15 03/02/25 02:49 2.5 MLS/HR Albuterol 2.5 mg Q6HR NEB 02/24/25 18:00 03/02/25 00:04 2.5 MG Ipratropium [place] 0.5 mg Q6HR NEB 02/24/25 18:00 03/02/25 00:04 0.5 MG Ondansetron HCl 4 mg Q6HPRN PRN IV 02/26/25 22:30 Diphenhydramine HCl 25 mg Q6HR GT 02/27/25 12:00 03/02/25 00:30 25 MG Clonazepam 0.5 mg Q12HR GT 02/27/25 22:00 03/01/25 21:44 0.5 MG Dobutamine HCl/ Dextrose 250 ml @ 0 mls/hr Q0M IV 02/27/25 15:15 03/02/25 02:48 11.94 MLS/HR Norepinephrine Bitartrate 250 ml @ 1.875 mls/ hr Q24H IV 02/28/25 15:45 03/01/25 17:39 5.625 MLS/HR Potassium Chloride 100 ml @ 50 mls/hr Q2H IV 03/02/25 04:30 03/02/25 08:29 Laboratory Results Laboratory Tests 03/02/25 02:59 Chemistry Test 03/02/25 02:59 Albumin 2.9 g/dL (3.2-4.8) L Calcium Level 8.8 mg/dL (8.7-10.4) Magnesium Level 1.9 mg/dL (1.6-2.6) Phosphorus Level 3.1 mg/dL (2.4-5.1) Total Protein 6.3 g/dL (5.7-8.2) LFT Test 03/02/25 02:59 Alanine Aminotransferase (ALT) 29 U/L (7-40) Alkaline Phosphatase 116 U/L (46-116) Aspartate Amino Transferase (AST) 60 U/L (13-40) H Total Bilirubin 1.3 mg/dL (0.2-1.0) H Urinalysis Test 02/14/25 11:30 02/19/25 13:50 Urine Protein/Creatinine Ratio 0.26 Urine Total Protein < 6.0 mg/dL (1-14) Urine Osmolality 587 mOsm/kg Urine Creatinine 76.95 mg/dL (30.0-125.0) Urine Sodium 79 mmol/L (40-220) Blood Gas Results Test 03/01/25 06:09 03/01/25 12:36 Arterial Blood pH 7.457 (7.350-7.450) 7.467 (7.350-7.450) FiO2 % 35.0 35.0 Microbiology Microbiology Date/Time Source Procedure Growth Status 02/13/25 08:15 Nose MRSA Screen - Final Complete 02/11/25 19:38 Blood Blood Culture - Final NO GROWTH AFTER 5 DAYS OF INCUBATION. Complete Assessment/Plan Assessment/Plan Impression: Acute hypoxemic respiratory failure On mechanical ventilator Pleural effusion Atelectasis S/p cardiac arrest Cardiomyopathy Congestive heart failure Obesity Events: Remains on vent support On AC mode; RR 16, VT 500, PEEP 6, FiO2 35% On Precedex drip On Seroquel. Pt is minimally responsive. ABG reviewed, shows alkalemia CPAP with PS 8, PEEP 6, FiO2 30% Plan for right thoracentesis today Pressors for hemodynamic support On Levophed 3 mcg/min Titrate to keep mean arterial pressure greater than 65 mmHg. Taper down pressors as tolerated Consult Surgery regarding trach/PEG as a means to liberate from mechanical ventilator. SBT failed yesterday - pt was noted to have apneic episodes. Patients daughter, Myrna, consented for PEG/trach. OG tube was placed. Patient with on and off bradycardia and NSVT Cardiology recs appreciated Continue Dobutamine 2.5 mcg/min for inotropic support Plan for pacemaker placement. Off dopamine. Nephrology recs appreciated. Tube feeds for nutritional support Continue antibiotics Continue bronchodilators Wound care. S/p PICC line placement - PICC line is deemed medically necessary for administration of pressors. Nephrology recs appreciated Diurese to euvolemia Monitor renal function Monitor electrolytes. Supplement as necessary.. Potassium supplementation Abdomen x-ray shows no e/o bowel obstruction. Labs and imaging reviewed. Rest of plan as noted below. Plan: s/p intubation on mechanical ventilator. On AC mode; RR 16, VT 500, PEEP 6, FiO2 35% Titrate FIO2 to keep O2 saturation above 90%. VAP bundle. Daily ABG and CXR while intubated Patient is s/p right thoracentesis. Continue bronchodilators. Continue antibiotics. Follow up cultures. Monitor WBC count Pressors as necessary for hemodynamic support Titrate to keep mean arterial pressure greater than 65 mmHg. Echo report reviewed; EF approximately 20% Cardiology recs appreciated. On Protonix, Sandostatin Monitor hemoglobin Tube feeds for nutritional support Follow up GI recs Diurese with Lasix Monitor renal function Monitor electrolytes. Supplement as necessary. Monitor ins and outs. Maintain euvolemia. GI prophylaxis -Protonix. DVT prophylaxis - Lovenox. Prognosis: Poor given patient's multiple co-morbidities. Condition: Critical Rest of plan per hospitalist and other consultants. A total of 35 minutes of critical care time was spent reviewing the patient record, examining the patient, making a diagnostic and therapeutic plan, discussing this plan with the medical personnel, following up on diagnostic studies and following the patient for clinical stability excluding any and all procedures. At least 50% of this time was spent in direct, [id number] contact. Thank you, Dr. Blas, for allowing me to participate in this patient's care. Further recommendations will depend on the patient's clinical course. Please do not hesitate to contact me if you have any questions or concerns. This medical document was created using an electronic medical record system with [employer] DD dictation system. Although these documentations are being carefully reviewed, there may still be some phonetic and typographical changes. The errors are purely typographical, due to imperfection on the software program, and do not reflect any compromise in the patient's medical care. Plan discussed with: Other (LEIGHTON Bright) My Orders Orders - DOLORES VELAZQUEZ MD Procedure Category Date Status Time Body Fluid Culture W/ ANNE-MARIE 03/01/25 In Process GS 17:25 Glucose Body Fluid LAB 03/01/25 In Process 17:25 Protein, Body Fluid LAB 03/01/25 In Process 17:25 Lactate LAB 03/01/25 In Process Dehydrogenase, Fluid 17:25 Cytology ANNE-MARIE 03/01/25 Transmitted 17:25 Chest Xray 1 View XY 03/01/25 Resulted 17:37 Abg W/ Co-Ox RT 03/02/25 Logged 06:00 Visit Coding Pulmonary Billing Provider: DOLORES VELAZQUEZ MD Date of Service if different f: Mar 01, 2025 Common Visit Codes: [id number] INP/OBS CARE(HIGH), 39870-[id number] CARE 30-74 MIN DOLORES VELAZQUEZ MD Mar 02, 2025 05:58
[2025-03-02 08:08] LABS: Base Excess 11.3 mmol/L (-2.0-3.0)
--- NOTE | 2025-03-02 10:47 | DVHPN2 ---
Progress Note Date Seen: Mar 02, 2025 Resident Creating Document: JANN AUGUST RESIDENT Has the PT tested + for MRSA If YES, has PT been informed?: No Medical Necessity Reason Pt with a Central, PICC or Fol: Yes The following are medically ne: Central Line, Aguilar Catheter Subjective Review of Systems Patient intubated sedated Feeding on hold due to cpap trial Objective vital signs Vital Sign Date Time Temp Pulse Resp B/P (MAP) Pulse Ox O2 Delivery O2 Flow Rate FiO2 03/02/25 10:15 97 20 99/66 (77) 94 03/02/25 10:00 Mechanical Ventilator+ 30 30 03/02/25 08:00 96.9 96.9 Total Intake and Output 03/01/25 03/01/25 03/02/25 15:00 23:00 07:00 Intake Total 307.280 ml 280.610 ml 476.806 ml Output Total 2150 ml 1350 ml Balance 307.280 ml -1869.390 ml -873.194 ml medications Current Medications Medications Dose Ordered Sig/Geraldo Route Start Time Stop Time Status Last Admin Dose Admin Diagnostic Test (Pha) 1 strip ACHS 02/12/25 07:00 03/02/25 06:06 1 STRIP Insulin Human Regular ACHS SC 02/12/25 07:00 02/26/25 17:22 2 UNITS Dextrose 50 ml UD PRN IV 02/11/25 22:15 Acetaminophen 650 mg Q6HP PRN PO 02/11/25 22:15 Aspirin 81 mg DAILY PO 02/12/25 10:00 03/01/25 09:17 81 MG Nicotine 1 patch DAILY TD 02/13/25 10:00 03/02/25 10:24 1 PATCH Midazolam HCl 100 ml @ 1 mls/hr Q24H IV 02/13/25 14:30 02/27/25 10:42 1 MLS/HR Enteral Nutritional Formula 1,000 ml 30ML/HR GT 02/14/25 12:45 03/01/25 21:38 1,000 ML Sennosides 8.6 mg HS PO 02/14/25 22:00 03/01/25 21:22 8.6 MG Quetiapine Fumarate 25 mg BID PO 02/15/25 10:00 03/01/25 21:28 25 MG Pantoprazole Sodium 40 mg DAILY IV 02/17/25 10:00 03/02/25 10:24 40 MG Lactulose 30 ml BID PO 02/17/25 22:00 03/01/25 21:22 30 ML Sodium Chloride 10 ml QSHIFT@10,22 IV 02/21/25 22:00 03/02/25 10:24 10 ML Furosemide 80 mg BIDD IV 02/22/25 08:00 03/02/25 06:35 80 MG Fentanyl Citrate 250 ml @ 2.5 mls/hr Q24H IV 02/22/25 19:15 03/02/25 02:49 2.5 MLS/HR Albuterol 2.5 mg Q6HR NEB 02/24/25 18:00 03/02/25 06:35 2.5 MG Ipratropium [place] 0.5 mg Q6HR NEB 02/24/25 18:00 03/02/25 06:35 0.5 MG Ondansetron HCl 4 mg Q6HPRN PRN IV 02/26/25 22:30 Diphenhydramine HCl 25 mg Q6HR GT 02/27/25 12:00 03/02/25 06:00 25 MG Clonazepam 0.5 mg Q12HR GT 02/27/25 22:00 03/01/25 21:44 0.5 MG Dobutamine HCl/ Dextrose 250 ml @ 0 mls/hr Q0M IV 02/27/25 15:15 03/02/25 02:48 11.94 MLS/HR Norepinephrine Bitartrate 250 ml @ 1.875 mls/ hr Q24H IV 02/28/25 15:45 03/01/25 17:39 5.625 MLS/HR Examination General: Overweight, afebrile, palor, mucosae are moist intubated sedated Cardiovascular: Regular S1 and S2. No murmurs, gallops or rubs. No JVD elevation. Pedal edema Respiratory: Decreased bilateral air entry on auscultation, mechanically ventilated Abdomen: Soft, nontender, nondistended, normoactive bowel sounds, no rebound tenderness, no organomegaly, no masses. Purulent vesicles on lower abdomen. Penile swelling. Small clots and Aguilar noted. Bilateral lower extremity, cyanosed, bluish, 3+ pedal edema, minimal pulses laboratory and microbiology Laboratory Tests 03/02/25 02:59 Test 03/02/25 02:59 Range/Units Serum Glucose 102 74-106 mg/dL Microbiology Date/Time Source Procedure Growth Status 02/13/25 08:15 Nose MRSA Screen - Final Complete 02/11/25 19:38 Blood Blood Culture - Final NO GROWTH AFTER 5 DAYS OF INCUBATION. Complete Problem List/Assessment/Plan Problem List/Assessment/Plan s/p PEA arrest ROSC 4 mins cardiogenic shock Cirrhosis Acute hypoxic respiratory failure status post intubation Systolic Heart failure with reduced ejection fraction exacerbation NSTEMI Hypertension Hyperkalemia Rule out STI Acute kidney injury Peripheral arterial disease Methamphetamine use dependence Severe protein calorie malnutrition Liver ultrasound shows Heterogeneous appearing liver suggesting chronic liver disease. Plan: Recommendation: Extubation will be tried No PEG tube for now Bilirubin stable, LFTs unremarkable. H&H stable. Monitor CMP in a.m.. Continue lactulose 30 mL b.i.d. Continue conservative management. Hepatitis panel negative Protonix 40 mg daily Plan discussed with the primary RN in which all questions have been answered Case discussed with Dr. Urena Plan discussed with: Other (rn) Dietary Evaluation Review Comments: CCHO-60 Cardiac diet, texture as tolearated when medically feasible nicotine cessation counseling Follow up with updated lab values Expected Outcomes/Goals: Improved nurition related lab values, free from nicotine JANN AUGUST RESIDENT Mar 02, 2025 10:46
--- NOTE | 2025-03-02 11:37 | DVHPN2 ---
Assessment/Plan Assessment/Plan ICU note 64 M with HTN, HFrEF 20%, DM, ascites, meth use admitted for SOB, later was found in respiratory distress, intubated and had PEA arrest, ROSC in 4 minutes. 02/14 s/p thora, 2 L out. switched to lasix drip. start TF. POCUS done, minimal tapable pocket in abdomen. wound culture with prelim growth. wound care 02/15 wound culture back, changed abx to vanc and layton, starting oral meds for weaning, patient previously agitated, to decrease prevent self extubation. lasix drip switched to 60 BID. SAT SBT tomorrow. 02/16 hold diuresis today, POCUS with improving IVC, off sedation, not waking up still. 02/17 adding diamox, metabolic alkalosis, decrease RR, holding methadone and klonazepam, off sedation, opening eyes to name, not following command, c/w SAT SBT. 02/18 off sedation and calm 02/19 continues to remain intubated and off sedation 02/20 agitated, restarting methadone and clonazepam. will d/w fam regarding trach if he continues to be difficult to sedate. positive balance, readding lasix, discontinueing fluid. 02/21 POCUS done, IVC >2cm with no excursion, severely reduced EF. net positive the past 2 days, doubling lasix dose. back on pressor. follows commands once. once stable will get CT angio to see if he will need intervention. podiatry consult 02/22 b/l UE superficial thrombus, no deep vein thrombus, dc tlc, continue to titrate off pressor, c/w diuresis. daily SAT SBT. i called family but went to . plan for extubation vs trach, possibly without full mental status if doing well during cpap 02/23 seen today, still on sedation. on and off having bradycardia and NSVT. cardio reconsulted today. starting dobutamine, c/w lasix acetazolamide 02/24 adequate diuresis, stion dobu and levo, no increase ectopy. no mental status. called fam member but went to again. consult for trach and peg. 02/27 called franco, he does not want to make medical decision and deferred to anali sister. called anali, consent signed for trach peg. 02/28 surg consult for trach. pt with minimal response, unclear if following commands. will do cpap for exercise but likely proceed with trach and LTACH transfer. 03/01 pending trach today.later patient mental status improved, cpap for 2 hours. 03/02 extubated to cool mist. pending bedside swallow. still on dobu and levo called ex nannette, per ex , both sons will make medical decision together, given contact number of son through his boss. Norma Osmanyle [phone] and son is Franco. Explained to Franco (son) regarding trach and peg and need of possible ppm and angiogram. he understands, will discuss with family and get back with a decision tomorrow. Per franco stanley to be reached at [phone] and [phone] (gf). franco does not want to make medical decision and defer to sister anali. d/w anali, agrees for trach peg and LTACH placement. physical exam follows command obese cannot appreciate JVD mechanical breath soundsl S1 S2 systolic murmur abdomen distended b/l LE edema w/ chronic venous wounds R foot with multiple gangrene dry and wet drips levophed dobu labs reviewed acetinobacter, pseudomonas, e faecalis, MRSA in wound cultrue imaging cxr RLL opacity echo LVEF 20%, DCM, MR assessment and plan s/p PEA arrest ROSC 4 mins cardiogenic shock acute on chronic hypoxic RF acute on chronic systolic HF small R PLEF COPD with exacerbation PNA gp vs gn HFrEF 20% DCM transaminitis cirrhosis? ascites? ALEXIS likely VMN lactic acidosis meth use leukocytosis type 2 [place] demand ischemia DM? chronic venous stasis wound with multiple bact L testicular mass? foot gangrene b/l UE superficial thrombosis high degree block NSVT ICU extubated titrate levophed to maintain MAP >60 increase diuresis to goal net neg 1L daily titrate down methadone, klonopin, c/w seroquel c/w vanc , zosyn switched to layton avoid fever VAP bundle bronchodilators hold GDMT until off pressors send A1C, lipid, tsh wound care daily SAT SBT podiatry consult CTA runoff once stable dobutamine to assist diuresis and inotropy, will dc if NSVT increased keep K 4 Ph 3 Mg 2 Diet hold until passed bedside swallow DVT PPX lovenox GI PPX protonix Lines picc jaffe Full code condition critical prognosis poor critical care time 75 minutes Plan discussed with: Patient, Other My Orders Orders - SYEDA VILLALOBOS MD Procedure Category Date Status Time Abg W/ Co-Ox RT 03/01/25 Logged 12:30 * [place] CONS 03/01/25 Transmitted Consult Cpap Trial For Am ORDERS 03/01/25 Transmitted 18:46 Extubate ANTONY 03/02/25 In Process 09:34 Date of Service: Mar 02, 2025 Billing Provider: SYEDA VILLALOBOS MD Common Visit Codes: 40680-FHTAUTCY CARE 30-74 MIN, [id number] CARE-EACH +30MIN SYEDA VILLALOBOS MD Mar 02, 2025 11:37
[2025-03-02 13:46] LABS: Base Excess 12.1 mmol/L (-2.0-3.0)
[2025-03-02] MEDS: FUROSEMIDE 100 MG/10ML VIAL IV SCH (17:31)
--- NOTE | 2025-03-02 22:43 | DVHPN2 ---
Subjective DOS: 03/02/2025 Patient seen and examined at bedside. S/p extubation, currently on supplemental oxygen Overnight events reviewed.. Reviewed: Care Plan, H&P, Labs, Medications, Previous Orders, Radiology Changes from previous H/P or p: No Changes Eyes: No Pain, No Vision change, No Conjunctivae inflammation, No Eyelid inflammation, No Other, No Redness ENT: No Ear pain, No Ear discharge, No Nose pain, No Nose discharge, No Nose congestion, No Mouth pain, No Mouth swelling, No Throat pain, No Throat swelling, No Other Cardiovascular: No Chest Pain, No Palpitations, No Orthopnea, No Paroxysmal Noc. Dyspnea, No Edema, No Lt Headedness, No Other Respiratory: No Cough, No Dry; Shortness of breath, SOB with excertion; No Wheezing, No Hemoptysis, No Pleuritic Pain, No Sputum; Other (SOB at rest) Gastrointestinal: No Nausea, No Vomiting; Abdominal Pain; No Diarrhea, No Constipation, No Melena, No Hematochezia; Other (Abdominal distention) Genitourinary: No Dysuria, No Frequency, No Incontinence, No Hematuria, No Retention, No Other Musculoskeletal: No other, No neck pain, No shoulder pain, No arm pain, No back pain, No hand pain, No leg pain, No foot pain Skin: No Rash, No Lesions, No Jaundice, No Bruising; Other (Lower extremity open wounds) Objective Vitals Vital Signs Date Time Temp Pulse Resp B/P (MAP) Pulse Ox O2 Delivery O2 Flow Rate FiO2 03/02/25 22:00 90 03/02/25 22:00 18 92 Nasal Cannula* 2 28 03/02/25 21:45 113/66 (82) 03/02/25 20:00 98.1 98.1 Intake/Output Intake and Output 03/02/25 07:00 Intake Total 1064.696 ml Output Total 3500 ml Balance -2435.304 ml Intake Oral 260 ml IV Total 624.696 ml Tube Feeding 80 ml Other 100 ml Output Urine Total 3500 ml Exam Gen.: Patient lying in bed in no apparent distress. On supplemental oxygen. Head: Normocephalic, atraumatic. Eyes: EOMI/PERRLA. Ears: Normal hearing. Normal anatomy. Neck/trachea: Trachea midline, supple. Nose: Normal external anatomy. Mouth: Moist mucous membranes. Chest: Decreased air entry bilaterally. No wheezing or rhonchi. Cardiovascular: Positive S1, positive S2. Regular rate and rhythm. Abdomen: Positive bowel sounds in all 4 quadrants. Soft, non-tender, non- distended. : Deferred. Rectal: Deferred. Skin: Warm, dry. Intact. Extremities: 2+ radial pulses bilaterally. No lower extremity edema. Neuro: Awake, ill appearing. No gross motor or sensory deficits. Cranial nerves II through XII intact. Gait not assessed. HEENT: Atraumatic, PERRLA, EOMI, Mucous membr. moist/pink Neck: Supple Lungs: Clear to auscultation, Normal air movement Cardiovascular: Regular rate, Normal S1, Normal S2, No murmurs, Gallops, Rubs Abdomen: Normal bowel sounds, Soft, No tenderness Medications Current Medications Medications Dose Ordered Sig/Geraldo Route Start Time Stop Time Status Last Admin Dose Admin Diagnostic Test (Pha) 1 strip ACHS 02/12/25 07:00 03/02/25 22:21 1 STRIP Insulin Human Regular ACHS SC 02/12/25 07:00 02/26/25 17:22 2 UNITS Dextrose 50 ml UD PRN IV 02/11/25 22:15 Acetaminophen 650 mg Q6HP PRN PO 02/11/25 22:15 Aspirin 81 mg DAILY PO 02/12/25 10:00 03/01/25 09:17 81 MG Nicotine 1 patch DAILY TD 02/13/25 10:00 03/02/25 10:24 1 PATCH Enteral Nutritional Formula 1,000 ml 30ML/HR GT 02/14/25 12:45 03/01/25 21:38 1,000 ML Sennosides 8.6 mg HS PO 02/14/25 22:00 03/01/25 21:22 8.6 MG Quetiapine Fumarate 25 mg BID PO 02/15/25 10:00 03/01/25 21:28 25 MG Pantoprazole Sodium 40 mg DAILY IV 02/17/25 10:00 03/02/25 10:24 40 MG Lactulose 30 ml BID PO 02/17/25 22:00 03/01/25 21:22 30 ML Sodium Chloride 10 ml QSHIFT@10,22 IV 02/21/25 22:00 03/02/25 22:21 10 ML Albuterol 2.5 mg Q6HR NEB 02/24/25 18:00 03/02/25 18:20 2.5 MG Ipratropium [place] 0.5 mg Q6HR NEB 02/24/25 18:00 03/02/25 18:20 0.5 MG Ondansetron HCl 4 mg Q6HPRN PRN IV 02/26/25 22:30 Diphenhydramine HCl 25 mg Q6HR GT 02/27/25 12:00 03/02/25 06:00 25 MG Clonazepam 0.5 mg Q12HR GT 02/27/25 22:00 03/01/25 21:44 0.5 MG Dobutamine HCl/ Dextrose 250 ml @ 0 mls/hr Q0M IV 02/27/25 15:15 03/02/25 19:52 11.94 MLS/HR Norepinephrine Bitartrate 250 ml @ 1.875 mls/ hr Q24H IV 02/28/25 15:45 03/01/25 17:39 5.625 MLS/HR Furosemide 60 mg BIDD IV 03/02/25 18:00 Potassium Chloride 100 ml @ 50 mls/hr Q2H IV 03/02/25 18:45 03/02/25 22:44 03/02/25 20:49 50 MLS/HR Laboratory Results Laboratory Tests 03/02/25 02:59 Chemistry Test 03/02/25 02:59 Albumin 2.9 g/dL (3.2-4.8) L Calcium Level 8.8 mg/dL (8.7-10.4) Magnesium Level 1.9 mg/dL (1.6-2.6) Phosphorus Level 3.1 mg/dL (2.4-5.1) Total Protein 6.3 g/dL (5.7-8.2) LFT Test 03/02/25 02:59 Alanine Aminotransferase (ALT) 29 U/L (7-40) Alkaline Phosphatase 116 U/L (46-116) Aspartate Amino Transferase (AST) 60 U/L (13-40) H Total Bilirubin 1.3 mg/dL (0.2-1.0) H Urinalysis Test 02/14/25 11:30 02/19/25 13:50 Urine Protein/Creatinine Ratio 0.26 Urine Total Protein < 6.0 mg/dL (1-14) Urine Osmolality 587 mOsm/kg Urine Creatinine 76.95 mg/dL (30.0-125.0) Urine Sodium 79 mmol/L (40-220) Blood Gas Results Test 03/02/25 07:20 03/02/25 13:22 Arterial Blood pH 7.474 (7.350-7.450) 7.462 (7.350-7.450) FiO2 % 30.0 28.0 Microbiology Microbiology Date/Time Source Procedure Growth Status 03/01/25 17:30 Pleural Fluid Gram Stain - Final Resulted 03/01/25 17:30 Pleural Fluid Body Fluid Culture - Preliminary No growth Resulted 02/13/25 08:15 Nose MRSA Screen - Final Complete 02/11/25 19:38 Blood Blood Culture - Final NO GROWTH AFTER 5 DAYS OF INCUBATION. Complete Assessment/Plan Assessment/Plan Impression: Acute hypoxemic respiratory failure On mechanical ventilator, s/p extubation. Pleural effusion Atelectasis S/p cardiac arrest Cardiomyopathy Congestive heart failure Obesity Events: Patient underwent CPAP trial today. He was extubated uneventfully Currently on supplemental oxygen Taper O2 as tolerated Patient remains on his fixed dose of Dobutamine 2.5 mcg/min for inotropic support S/p right thoracentesis yesterday - 650 mL fluid removed. Pressors for hemodynamic support On Levophed 2 mcg/min Titrate to keep mean arterial pressure greater than 65 mmHg. Taper down pressors as tolerated; improving pressor requirements Labs reviewed; K 3.1, CO2 40, ALT 60. Family making decision regarding trach/PEG Tube feeds for nutritional support Continue antibiotics Continue bronchodilators Wound care. S/p PICC line placement - PICC line is deemed medically necessary for administration of pressors. Nephrology recs appreciated Maintain euvolemia Monitor renal function Monitor electrolytes. Supplement as necessary.. Potassium supplemented Patient remains NPO He failed bedside swallow evaluation Plan for Speech and Swallow evaluation Head of bed elevation Aspiration precautions. Abdomen x-ray shows no e/o bowel obstruction. Labs and imaging reviewed. Rest of plan as noted below. Plan: S/p extubation On supplemental oxygen Titrate to keep O2 sats above 90%. Patient is s/p right thoracentesis. Continue bronchodilators. Continue antibiotics. Follow up cultures. Monitor WBC count Pressors as necessary for hemodynamic support Titrate to keep mean arterial pressure greater than 65 mmHg. Patient with on and off bradycardia and NSVT On Dobutamine 2.5 mcg/min for inotropic support Plan for pacemaker placement. Echo report reviewed; EF approximately 20% Cardiology recs appreciated. On Protonix Monitor hemoglobin Tube feeds for nutritional support Follow up GI recs Diurese with Lasix Monitor renal function Monitor electrolytes. Supplement as necessary. Monitor ins and outs. Maintain euvolemia. GI prophylaxis -Protonix. DVT prophylaxis - Lovenox. Prognosis: Poor given patient's multiple co-morbidities. Condition: Critical Rest of plan per hospitalist and other consultants. A total of 35 minutes of critical care time was spent reviewing the patient record, examining the patient, making a diagnostic and therapeutic plan, discussing this plan with the medical personnel, following up on diagnostic studies and following the patient for clinical stability excluding any and all procedures. At least 50% of this time was spent in direct, [id number] contact. Thank you, Dr. Blas, for allowing me to participate in this patient's care. Further recommendations will depend on the patient's clinical course. Please do not hesitate to contact me if you have any questions or concerns. This medical document was created using an electronic medical record system with [employer] dictation system. Although these documentations are being carefully reviewed, there may still be some phonetic and typographical changes. The errors are purely typographical, due to imperfection on the software program, and do not reflect any compromise in the patient's medical care. Plan discussed with: Other (RN) My Orders Orders - DOLORES VELAZQUEZ MD Procedure Category Date Status Time Abg W/ Co-Ox RT 03/02/25 Logged 06:00 Abg W/ Co-Ox RT 03/02/25 Logged 09:04 Potassium Chl PHA 03/02/25 In Process 20meq/100ml 18:45 Visit Coding Pulmonary Billing Provider: DOLORES VELAZQUEZ MD Date of Service if different f: Mar 02, 2025 Common Visit Codes: [id number] INP/OBS CARE(HIGH), [id number] CARE 30-74 MIN DOLORES VELAZQUEZ MD Mar 02, 2025 22:43
--- NOTE | 2025-03-02 23:00 | DVHPN2 ---
Progress Note - Dictate Date Seen: Mar 02, 2025 Has the PT tested + for MRSA If YES, has PT been informed?: No Medical Necessity Reason Pt with a Central, PICC or Fol: Yes The following are medically ne: Central Line, Aguilar Catheter Subjective Patient was seen and evaluated in follow up in the ICU. Patient was successfully extubated. Pending bedside swallow. Patient's family are going to make decisions regarding PEG/trach. K 3.1, CO2 40, ALT 60. vital signs Vital Sign Date Time Temp Pulse Resp B/P (MAP) Pulse Ox O2 Delivery O2 Flow Rate FiO2 03/02/25 12:00 95 03/02/25 12:00 17 97 Nasal Cannula* 2 28 03/02/25 11:15 100/62 (75) 03/02/25 08:00 96.9 96.9 Total Intake and Output 03/01/25 03/01/25 03/02/25 15:00 23:00 07:00 Intake Total 307.280 ml 280.610 ml 476.806 ml Output Total 2150 ml 1350 ml Balance 307.280 ml -1869.390 ml -873.194 ml medications Current Medications Medications Dose Ordered Sig/Geraldo Route Start Time Stop Time Status Last Admin Dose Admin Diagnostic Test (Pha) 1 strip ACHS 02/12/25 07:00 03/02/25 11:21 1 STRIP Insulin Human Regular ACHS SC 02/12/25 07:00 02/26/25 17:22 2 UNITS Dextrose 50 ml UD PRN IV 02/11/25 22:15 Acetaminophen 650 mg Q6HP PRN PO 02/11/25 22:15 Aspirin 81 mg DAILY PO 02/12/25 10:00 03/01/25 09:17 81 MG Nicotine 1 patch DAILY TD 02/13/25 10:00 03/02/25 10:24 1 PATCH Enteral Nutritional Formula 1,000 ml 30ML/HR GT 02/14/25 12:45 03/01/25 21:38 1,000 ML Sennosides 8.6 mg HS PO 02/14/25 22:00 03/01/25 21:22 8.6 MG Quetiapine Fumarate 25 mg BID PO 02/15/25 10:00 03/01/25 21:28 25 MG Pantoprazole Sodium 40 mg DAILY IV 02/17/25 10:00 03/02/25 10:24 40 MG Lactulose 30 ml BID PO 02/17/25 22:00 03/01/25 21:22 30 ML Sodium Chloride 10 ml QSHIFT@10,22 IV 02/21/25 22:00 03/02/25 10:24 10 ML Albuterol 2.5 mg Q6HR NEB 02/24/25 18:00 03/02/25 11:39 2.5 MG Ipratropium [place] 0.5 mg Q6HR NEB 02/24/25 18:00 03/02/25 11:39 0.5 MG Ondansetron HCl 4 mg Q6HPRN PRN IV 02/26/25 22:30 Diphenhydramine HCl 25 mg Q6HR GT 02/27/25 12:00 03/02/25 06:00 25 MG Clonazepam 0.5 mg Q12HR GT 02/27/25 22:00 03/01/25 21:44 0.5 MG Dobutamine HCl/ Dextrose 250 ml @ 0 mls/hr Q0M IV 02/27/25 15:15 03/02/25 02:48 11.94 MLS/HR Norepinephrine Bitartrate 250 ml @ 1.875 mls/ hr Q24H IV 02/28/25 15:45 03/01/25 17:39 5.625 MLS/HR Furosemide 60 mg BIDD IV 03/02/25 18:00 objective GENERAL: Ill appearing, Awake. EYES: PERRL, EOMI. Anicteric. HENT: Moist mucous membranes. LUNGS: Decreased breath sounds. CARDIOVASCULAR: Regular rate and rhythm. ABDOMEN: Soft, nontender and nondistended. EXTREMITIES: No edema. SKIN: Warm, dry. laboratory and microbiology Laboratory Tests 03/02/25 02:59 Test 03/02/25 02:59 Range/Units Serum Glucose 102 74-106 mg/dL Problem List S/P PEA arrest. Cardiogenic shock. Acute hypoxic respiratory failure Systolic Heart failure with reduced ejection fraction. NSTEMI. Hypertension. Hyperkalemia. Small R pleural effusion. COPD with exacerbation. PNA. DCM. Transaminitis. ALEXIS. Lactic acidosis. Meth use. Leukocytosis. Type 2 [place] demand ischemia. Chronic venous stasis. Foot gangrene. L/l UE superficial thrombosis. High degree block. NSVT. Assessment/Plan Continued all current supportive medical care. Aspirin. GI prophylactics. Diuretics with Lasix. IV antibiotics as ordered. Vasopressors for hemodynamic support. Additional plan as per the hospital course. Critical care time of 45 minutes provided to include time spent evaluation of patient at bedside, when appropriate patient/family education for diagnosis, treatment plan, review of pertinent medical information and discussion of care with specialty providers and PCP. Dietary Evaluation Review Comments: [facility] Cardiac diet, texture as tolearated when medically feasible nicotine cessation counseling Follow up with updated lab values Expected Outcomes/Goals: Improved nurition related lab values, free from nicotine Plan discussed with: Patient SHARMILA BENDER MD Mar 02, 2025 13:11
[2025-03-03] VITALS (100 sets, daily range): BP systolic 80–119; BP diastolic 39–98; PULSE 80–111; RESP 9–35; TEMP 97.2–98.5; O2SAT 81–100
[2025-03-03 03:39] LABS: Hematocrit 37.1 % (41.0-53.0); Hemoglobin 12.3 g/dL (13.5-17.5); Mean Corpuscular Hemoglobin 30.2 pg (28.0-32.0); Mean Corpuscular Volume 91.5 fL (80.0-100.0); Nucleated Red Blood Cells % 0.1 %
[2025-03-03 04:02] LABS: Alanine Aminotransferase 27 U/L (7-40); Alkaline Phosphatase 109 U/L (46-116); Anion Gap 8 (5-15); BUN/Creatinine Ratio 18.2 (10.0-20.0); Blood Urea Nitrogen 10 mg/dL (9-23); Calcium 8.9 mg/dL (8.7-10.4); Magnesium 1.7 mg/dL (1.6-2.6); Sodium 138 mmol/L (136-145); Total Protein 6.1 g/dL (5.7-8.2)
[2025-03-03 04:05] LABS: Albumin 2.9 g/dL (3.2-4.8); Bilirubin, Total 1.4 mg/dL (0.2-1.0); Carbon Dioxide 36 mmol/L (20-31); Chloride 94 mmol/L (98-107); Glucose 134 mg/dL (74-106); Potassium 3.0 mmol/L (3.5-5.1)
[2025-03-03] MEDS: POTASSIUM CHL 20MEQ/100ML 200 ML IV ONE (05:44)
[2025-03-03] MEDS: POTASSIUM CHL 20MEQ/100ML 100 ML IV SCH (05:45)
[2025-03-03] MEDS: DEXTROSE (50%) 50ML SYRG IV PRN (05:46)
--- NOTE | 2025-03-03 09:48 | DVHPN2 ---
Assessment/Plan Assessment/Plan ICU note 64 M with HTN, HFrEF 20%, DM, ascites, meth use admitted for SOB, later was found in respiratory distress, intubated and had PEA arrest, ROSC in 4 minutes. 02/14 s/p thora, 2 L out. switched to lasix drip. start TF. POCUS done, minimal tapable pocket in abdomen. wound culture with prelim growth. wound care 02/15 wound culture back, changed abx to vanc and layton, starting oral meds for weaning, patient previously agitated, to decrease prevent self extubation. lasix drip switched to 60 BID. SAT SBT tomorrow. 02/16 hold diuresis today, POCUS with improving IVC, off sedation, not waking up still. 02/17 adding diamox, metabolic alkalosis, decrease RR, holding methadone and klonazepam, off sedation, opening eyes to name, not following command, c/w SAT SBT. 02/18 off sedation and calm 02/19 continues to remain intubated and off sedation 02/20 agitated, restarting methadone and clonazepam. will d/w fam regarding trach if he continues to be difficult to sedate. positive balance, readding lasix, discontinueing fluid. 02/21 POCUS done, IVC >2cm with no excursion, severely reduced EF. net positive the past 2 days, doubling lasix dose. back on pressor. follows commands once. once stable will get CT angio to see if he will need intervention. podiatry consult 02/22 b/l UE superficial thrombus, no deep vein thrombus, dc tlc, continue to titrate off pressor, c/w diuresis. daily SAT SBT. i called family but went to . plan for extubation vs trach, possibly without full mental status if doing well during cpap 02/23 seen today, still on sedation. on and off having bradycardia and NSVT. cardio reconsulted today. starting dobutamine, c/w lasix acetazolamide 02/24 adequate diuresis, stion dobu and levo, no increase ectopy. no mental status. called fam member but went to again. consult for trach and peg. 02/27 called franco, he does not want to make medical decision and deferred to anali sister. called anali, consent signed for trach peg. 02/28 surg consult for trach. pt with minimal response, unclear if following commands. will do cpap for exercise but likely proceed with trach and LTACH transfer. 03/01 pending trach today.later patient mental status improved, cpap for 2 hours. 03/02 extubated to cool mist. pending bedside swallow. still on dobu and levo 03/03 add midodrine, replete lytes. comfortable. bedside swallow, start diet, dc methadone, podiatry consult. c/w dobu fixed dose, off pressors, dg to tele w sitter called ex nannette, per ex , both sons will make medical decision together, given contact number of son through his boss. Norma Osmanyle [phone] and son is Franco. Explained to Franco (son) regarding trach and peg and need of possible ppm and angiogram. he understands, will discuss with family and get back with a decision tomorrow. Per norma franco to be reached at [phone] and [phone] (gf). franco does not want to make medical decision and defer to sister anali. d/w anali, agrees for trach peg and LTACH placement. physical exam follows command obese cannot appreciate JVD mechanical breath soundsl S1 S2 systolic murmur abdomen distended b/l LE edema w/ chronic venous wounds R foot with multiple gangrene dry and wet drips levophed dobu labs reviewed acetinobacter, pseudomonas, e faecalis, MRSA in wound cultrue imaging cxr RLL opacity echo LVEF 20%, DCM, MR assessment and plan s/p PEA arrest ROSC 4 mins cardiogenic shock acute on chronic hypoxic RF acute on chronic systolic HF acute metabolic encephalopathy small R PLEF COPD with exacerbation PNA gp vs gn HFrEF 20% DCM transaminitis cirrhosis? ascites? ALEXIS likely VMN lactic acidosis meth use leukocytosis type 2 MT demand ischemia DM? chronic venous stasis wound with multiple bact L testicular mass? foot gangrene b/l UE superficial thrombosis high degree block NSVT ICU extubated titrate levophed to maintain MAP >60 c/w diuresis close to euvolemic titrate down methadone, klonopin, c/w seroquel c/w vanc , zosyn switched to lay[place] avoid fever VAP bundle bronchodilators hold GDMT until off pressors send A1C, lipid, tsh wound care daily SAT SBT podiatry consult CTA runoff once stable dobutamine to assist diuresis and inotropy, will dc if NSVT increased keep K 4 Ph 3 Mg 2 Diet hold until passed bedside swallow DVT PPX lovenox GI PPX protonix Lines picc jaffe Full code condition critical prognosis poor critical care time 35 minutes Plan discussed with: Patient, Other My Orders Orders - SYEDA VILLALOBOS MD Procedure Category Date Status Time Furosemide Injection PHA 03/02/25 In Process (Lasix Injection) 18:00 * Swallow Request ST 03/02/25 Transmitted 15:52 Magnesium Sulfate PHA 03/03/25 In Process 1gm/100ml 09:00 Midodrine Tablet PHA 03/03/25 In Process (Proamatine Tablet) 12:00 Potassium Chl PHA 03/03/25 In Process 20meq/100ml 09:00 Potassium Phosphate PHA 03/03/25 In Process 09:00 Pt Request For Service PT 03/03/25 Logged 08:59 Communication Order ORDERS 03/03/25 Transmitted 08:59 *Podiatry Consult CONS 03/03/25 Transmitted Srini(Dvmg) 09:16 Transfer Orders XFER 03/03/25 Transmitted 09:19 Date of Service: Mar 03, 2025 Billing Provider: SYEDA VILLALOBOS MD Common Visit Codes: [id number] CARE 30-74 MIN SYEDA VILLALOBOS MD Mar 03, 2025 09:48
[2025-03-03] MEDS: MAGNESIUM SULFATE 1GM/100ML 100 ML IV SCH (11:02)
[2025-03-03] MEDS: POTASSIUM CHL 20MEQ/100ML 100 ML IV ONE (11:02)
[2025-03-03] MEDS: POTASSIUM PHOSPHATE 44 MEQ in D5W 5% 250 ML IV ONE (11:11)
--- NOTE | 2025-03-03 11:31 | DVHPN2 ---
Progress Note Date Seen: Mar 03, 2025 Resident Creating Document: JANN AUGUST RESIDENT Has the PT tested + for MRSA If YES, has PT been informed?: No Medical Necessity Reason Pt with a Central, PICC or Fol: Yes The following are medically ne: Central Line, Aguilar Catheter Subjective Review of Systems Recently extubated Pending swallow evaluation on ice chips last bowel movement on the 02/24 Objective vital signs Vital Sign Date Time Temp Pulse Resp B/P (MAP) Pulse Ox O2 Delivery O2 Flow Rate FiO2 03/03/25 06:47 107 18 99 03/03/25 06:41 Nasal Cannula 2.0 03/03/25 06:41 28 03/03/25 06:39 94/60 03/03/25 03:00 98.5 98.5 Total Intake and Output 03/02/25 03/02/25 03/03/25 15:00 23:00 07:00 Intake Total 125.52 ml 175.52 ml 49.635 ml Output Total 1275 ml 700 ml Balance 125.52 ml -1099.48 ml -650.365 ml medications Current Medications Medications Dose Ordered Sig/Geraldo Route Start Time Stop Time Status Last Admin Dose Admin Diagnostic Test (Pha) 1 strip ACHS 02/12/25 07:00 03/03/25 05:45 1 STRIP Insulin Human Regular ACHS SC 02/12/25 07:00 02/26/25 17:22 2 UNITS Dextrose 50 ml UD PRN IV 02/11/25 22:15 03/03/25 05:46 50 ML Acetaminophen 650 mg Q6HP PRN PO 02/11/25 22:15 Aspirin 81 mg DAILY PO 02/12/25 10:00 03/01/25 09:17 81 MG Nicotine 1 patch DAILY TD 02/13/25 10:00 03/03/25 10:49 1 PATCH Sennosides 8.6 mg HS PO 02/14/25 22:00 03/01/25 21:22 8.6 MG Quetiapine Fumarate 25 mg BID PO 02/15/25 10:00 03/01/25 21:28 25 MG Pantoprazole Sodium 40 mg DAILY IV 02/17/25 10:00 03/03/25 10:54 40 MG Lactulose 30 ml BID PO 02/17/25 22:00 03/01/25 21:22 30 ML Sodium Chloride 10 ml QSHIFT@10,22 IV 02/21/25 22:00 03/03/25 11:03 10 ML Albuterol 2.5 mg Q6HR NEB 02/24/25 18:00 03/03/25 11:22 2.5 MG Ipratropium [place] 0.5 mg Q6HR NEB 02/24/25 18:00 03/03/25 11:22 0.5 MG Ondansetron HCl 4 mg Q6HPRN PRN IV 02/26/25 22:30 Diphenhydramine HCl 25 mg Q6HR GT 02/27/25 12:00 03/02/25 06:00 25 MG Clonazepam 0.5 mg Q12HR GT 02/27/25 22:00 03/01/25 21:44 0.5 MG Dobutamine HCl/ Dextrose 250 ml @ 0 mls/hr Q0M IV 02/27/25 15:15 03/02/25 19:52 11.94 MLS/HR Norepinephrine Bitartrate 250 ml @ 1.875 mls/ hr Q24H IV 02/28/25 15:45 03/01/25 17:39 5.625 MLS/HR Furosemide 60 mg BIDD IV 03/02/25 18:00 03/03/25 06:39 60 MG Midodrine 10 mg TID@0600,1200,1800 PO 03/03/25 12:00 Examination General: Overweight, afebrile, palor, Cardiovascular: Regular S1 and S2. No murmurs, gallops or rubs. No JVD elevation. Pedal edema Respiratory: Decreased bilateral air entry on auscultation Abdomen: Soft, nontender, nondistended, normoactive bowel sounds, no rebound tenderness, no organomegaly, no masses. laboratory and microbiology Laboratory Tests 03/03/25 03:18 Test 03/03/25 03:18 Range/Units Serum Glucose 134 H 74-106 mg/dL Microbiology Date/Time Source Procedure Growth Status 03/01/25 17:30 Pleural Fluid Gram Stain - Final Resulted 03/01/25 17:30 Pleural Fluid Body Fluid Culture - Preliminary No growth Resulted 02/13/25 08:15 Nose MRSA Screen - Final Complete 02/11/25 19:38 Blood Blood Culture - Final NO GROWTH AFTER 5 DAYS OF INCUBATION. Complete Problem List/Assessment/Plan Problem List/Assessment/Plan s/p PEA arrest ROSC 4 mins cardiogenic shock Cirrhosis Acute hypoxic respiratory failure status post intubation Systolic Heart failure with reduced ejection fraction exacerbation NSTEMI Hypertension Hyperkalemia Rule out STI Acute kidney injury Peripheral arterial disease Methamphetamine use dependence Severe protein calorie malnutrition Liver ultrasound shows Heterogeneous appearing liver suggesting chronic liver disease. Plan: Recommendation: Extubated Pending swallow evaluation Bilirubin stable, LFTs unremarkable. H&H stable. Monitor CMP in a.m.. Continue lactulose 30 mL b.i.d. Continue conservative management. Hepatitis panel negative Protonix 40 mg daily Plan discussed with the primary RN in which all questions have been answered Case discussed with Dr. Urena Plan discussed with: Patient, Other (rn) Dietary Evaluation Review Comments: CCHO-60 Cardiac diet, texture as tolearated when medically feasible nicotine cessation counseling Follow up with updated lab values Expected Outcomes/Goals: Improved nurition related lab values, free from nicotine JANN AUGUST RESIDENT Mar 03, 2025 11:31
[2025-03-03] MEDS: MIDODRINE HCL 10 MG TAB PO SCH (12:00)
[2025-03-03 13:07] LABS: Glucose, Body Fluid 111.0 mg/dL (.); LD, Body Fluid 172.0 IU/L (.)
--- NOTE | 2025-03-03 14:56 | DVHPN2 ---
Progress Note - Dictate Date Seen: Mar 03, 2025 Has the PT tested + for MRSA If YES, has PT been informed?: No Medical Necessity Reason Pt with a Central, PICC or Fol: Yes The following are medically ne: Central Line, Aguilar Catheter Subjective Patient was seen and evaluated in follow up in the ICU. Patient is on 2 LPM NC. Patient passed bedside swallow eval and started on diet. K 3, CO2 36, AST 57. vital signs Vital Sign Date Time Temp Pulse Resp B/P (MAP) Pulse Ox O2 Delivery O2 Flow Rate FiO2 03/03/25 11:28 96 18 99 03/03/25 10:00 Nasal Cannula* 2 28 03/03/25 09:45 99/68 (78) 03/03/25 08:00 97.9 97.9 Total Intake and Output 03/02/25 03/02/25 03/03/25 15:00 23:00 07:00 Intake Total 125.52 ml 175.52 ml 111.575 ml Output Total 1275 ml 700 ml Balance 125.52 ml -1099.48 ml -588.425 ml medications Current Medications Medications Dose Ordered Sig/Geraldo Route Start Time Stop Time Status Last Admin Dose Admin Diagnostic Test (Pha) 1 strip ACHS 02/12/25 07:00 03/03/25 11:30 1 STRIP Insulin Human Regular ACHS SC 02/12/25 07:00 02/26/25 17:22 2 UNITS Dextrose 50 ml UD PRN IV 02/11/25 22:15 03/03/25 05:46 50 ML Acetaminophen 650 mg Q6HP PRN PO 02/11/25 22:15 Aspirin 81 mg DAILY PO 02/12/25 10:00 03/01/25 09:17 81 MG Nicotine 1 patch DAILY TD 02/13/25 10:00 03/03/25 10:49 1 PATCH Sennosides 8.6 mg HS PO 02/14/25 22:00 03/01/25 21:22 8.6 MG Quetiapine Fumarate 25 mg BID PO 02/15/25 10:00 03/01/25 21:28 25 MG Pantoprazole Sodium 40 mg DAILY IV 02/17/25 10:00 03/03/25 10:54 40 MG Lactulose 30 ml BID PO 02/17/25 22:00 03/01/25 21:22 30 ML Sodium Chloride 10 ml QSHIFT@10,22 IV 02/21/25 22:00 03/03/25 11:03 10 ML Albuterol 2.5 mg Q6HR NEB 02/24/25 18:00 03/03/25 11:22 2.5 MG Ipratropium [place] 0.5 mg Q6HR NEB 02/24/25 18:00 03/03/25 11:22 0.5 MG Ondansetron HCl 4 mg Q6HPRN PRN IV 02/26/25 22:30 Diphenhydramine HCl 25 mg Q6HR GT 02/27/25 12:00 03/02/25 06:00 25 MG Clonazepam 0.5 mg Q12HR GT 02/27/25 22:00 03/01/25 21:44 0.5 MG Dobutamine HCl/ Dextrose 250 ml @ 0 mls/hr Q0M IV 02/27/25 15:15 03/02/25 19:52 11.94 MLS/HR Norepinephrine Bitartrate 250 ml @ 1.875 mls/ hr Q24H IV 02/28/25 15:45 03/01/25 17:39 5.625 MLS/HR Furosemide 60 mg BIDD IV 03/02/25 18:00 03/03/25 06:39 60 MG Midodrine 10 mg TID@0600,1200,1800 PO 03/03/25 12:00 objective GENERAL: Ill appearing, Awake. EYES: PERRL, EOMI. Anicteric. HENT: Moist mucous membranes. LUNGS: Decreased breath sounds. CARDIOVASCULAR: Regular rate and rhythm. ABDOMEN: Soft, nontender and nondistended. EXTREMITIES: No edema. SKIN: Warm, dry. laboratory and microbiology Laboratory Tests 03/03/25 03:18 Test 03/03/25 03:18 Range/Units Serum Glucose 134 H 74-106 mg/dL Problem List S/P PEA arrest. Cardiogenic shock. Acute hypoxic respiratory failure Systolic Heart failure with reduced ejection fraction. NSTEMI. Hypertension. Hyperkalemia. Small R pleural effusion. COPD with exacerbation. PNA. DCM. Transaminitis. ALEXIS. Lactic acidosis. Meth use. Leukocytosis. Type 2 PR demand ischemia. Chronic venous stasis. Foot gangrene. L/l UE superficial thrombosis. High degree block. NSVT. Assessment/Plan Continued all current supportive medical care. Aspirin. Diuretics with Lasix. Vasopressors for hemodynamic support. GI prophylactics. Additional plan as per the hospital course. Critical care time of 45 minutes provided to include time spent evaluation of patient at bedside, when appropriate patient/family education for diagnosis, treatment plan, review of pertinent medical information and discussion of care with specialty providers and PCP. Dietary Evaluation Review Comments: CCHO-60 Cardiac diet, texture as tolearated when medically feasible nicotine cessation counseling Follow up with updated lab values Expected Outcomes/Goals: Improved nurition related lab values, free from nicotine Plan discussed with: Patient SHARMILA BENDER MD Mar 03, 2025 14:26
[2025-03-03 16:57] LABS: Alanine Aminotransferase 29 U/L (7-40); Anion Gap 8 (5-15); BUN/Creatinine Ratio 18.8 (10.0-20.0); Blood Urea Nitrogen 12 mg/dL (9-23); Calcium 8.9 mg/dL (8.7-10.4); Glucose 90 mg/dL (74-106); Magnesium 2.0 mg/dL (1.6-2.6); Sodium 139 mmol/L (136-145); Total Protein 6.2 g/dL (5.7-8.2)
[2025-03-03 16:59] LABS: Albumin 3.0 g/dL (3.2-4.8); Alkaline Phosphatase 120 U/L (46-116); Bilirubin, Total 1.4 mg/dL (0.2-1.0); Carbon Dioxide 35 mmol/L (20-31); Chloride 96 mmol/L (98-107); Potassium 3.5 mmol/L (3.5-5.1)
[2025-03-04] VITALS (106 sets, daily range): BP systolic 80–116; BP diastolic 35–67; PULSE 72–105; RESP 10–26; TEMP 97.7–98.9; O2SAT 87–100
[2025-03-04 03:26] LABS: Hematocrit 37.3 % (41.0-53.0); Hemoglobin 12.5 g/dL (13.5-17.5); Mean Corpuscular Hemoglobin 30.4 pg (28.0-32.0); Mean Corpuscular Volume 90.7 fL (80.0-100.0); Nucleated Red Blood Cells % 0.1 %
[2025-03-04 03:41] LABS: Calcium 8.9 mg/dL (8.7-10.4); Sodium 140 mmol/L (136-145)
[2025-03-04 03:42] LABS: Anion Gap 10 (5-15); Carbon Dioxide 34 mmol/L (20-31); Chloride 96 mmol/L (98-107); Potassium 3.1 mmol/L (3.5-5.1)
[2025-03-04 03:47] LABS: BUN/Creatinine Ratio 17.6 (10.0-20.0); Glucose 78 mg/dL (74-106); Magnesium 1.9 mg/dL (1.6-2.6)
[2025-03-04 03:49] LABS: Blood Urea Nitrogen 9 mg/dL (9-23)
[2025-03-04] MEDS: MAGNESIUM SULFATE 1GM/100ML 100 ML IV ONE ×2 (05:06→14:05)
[2025-03-04] MEDS: POTASSIUM CHL 20MEQ/100ML 100 ML IV ONE (05:06)
--- NOTE | 2025-03-04 08:32 | DVHPN2 ---
Subjective DOS: 03/03/2025 Patient seen and examined at bedside. Remains on supplemental oxygen Overnight events reviewed.. Reviewed: Care Plan, H&P, Labs, Medications, Previous Orders, Radiology Changes from previous H/P or p: No Changes Eyes: No Pain, No Vision change, No Conjunctivae inflammation, No Eyelid inflammation, No Other, No Redness ENT: No Ear pain, No Ear discharge, No Nose pain, No Nose discharge, No Nose congestion, No Mouth pain, No Mouth swelling, No Throat pain, No Throat swelling, No Other Cardiovascular: No Chest Pain, No Palpitations, No Orthopnea, No Paroxysmal Noc. Dyspnea, No Edema, No Lt Headedness, No Other Respiratory: No Cough, No Dry; Shortness of breath, SOB with excertion; No Wheezing, No Hemoptysis, No Pleuritic Pain, No Sputum; Other (SOB at rest) Gastrointestinal: No Nausea, No Vomiting; Abdominal Pain; No Diarrhea, No Constipation, No Melena, No Hematochezia; Other (Abdominal distention) Genitourinary: No Dysuria, No Frequency, No Incontinence, No Hematuria, No Retention, No Other Musculoskeletal: No other, No neck pain, No shoulder pain, No arm pain, No back pain, No hand pain, No leg pain, No foot pain Skin: No Rash, No Lesions, No Jaundice, No Bruising; Other (Lower extremity open wounds) Objective Vitals Vital Signs Date Time Temp Pulse Resp B/P (MAP) Pulse Ox O2 Delivery O2 Flow Rate FiO2 03/04/25 07:10 92 14 100 03/04/25 07:00 Nasal Cannula* 2 28 03/04/25 07:00 99/57 (71) 03/04/25 04:00 97.8 97.8 Intake/Output Intake and Output 03/04/25 07:00 Intake Total 1059.56 ml Output Total 1700 ml Balance -640.44 ml Intake Oral 10 ml IV Total 1049.56 ml Output Urine Total 1700 ml Exam Gen.: Patient lying in bed in no apparent distress. On supplemental oxygen. Head: Normocephalic, atraumatic. Eyes: EOMI/PERRLA. Ears: Normal hearing. Normal anatomy. Neck/trachea: Trachea midline, supple. Nose: Normal external anatomy. Mouth: Moist mucous membranes. Chest: Decreased air entry bilaterally. No wheezing or rhonchi. Cardiovascular: Positive S1, positive S2. Regular rate and rhythm. Abdomen: Positive bowel sounds in all 4 quadrants. Soft, non-tender, non- distended. : Deferred. Rectal: Deferred. Skin: Warm, dry. Intact. Extremities: 2+ radial pulses bilaterally. No lower extremity edema. Neuro: Awake, ill appearing. No gross motor or sensory deficits. Cranial nerves II through XII intact. Gait not assessed. HEENT: Atraumatic, PERRLA, EOMI, Mucous membr. moist/pink Neck: Supple Lungs: Clear to auscultation, Normal air movement Cardiovascular: Regular rate, Normal S1, Normal S2, No murmurs, Gallops, Rubs Abdomen: Normal bowel sounds, Soft, No tenderness Medications Current Medications Medications Dose Ordered Sig/Geraldo Route Start Time Stop Time Status Last Admin Dose Admin Diagnostic Test (Pha) 1 strip ACHS 02/12/25 07:00 03/04/25 06:17 1 STRIP Insulin Human Regular ACHS SC 02/12/25 07:00 02/26/25 17:22 2 UNITS Dextrose 50 ml UD PRN IV 02/11/25 22:15 03/03/25 05:46 50 ML Acetaminophen 650 mg Q6HP PRN PO 02/11/25 22:15 Aspirin 81 mg DAILY PO 02/12/25 10:00 03/01/25 09:17 81 MG Nicotine 1 patch DAILY TD 02/13/25 10:00 03/03/25 10:49 1 PATCH Sennosides 8.6 mg HS PO 02/14/25 22:00 03/01/25 21:22 8.6 MG Quetiapine Fumarate 25 mg BID PO 02/15/25 10:00 03/01/25 21:28 25 MG Pantoprazole Sodium 40 mg DAILY IV 02/17/25 10:00 03/03/25 10:54 40 MG Lactulose 30 ml BID PO 02/17/25 22:00 03/01/25 21:22 30 ML Sodium Chloride 10 ml QSHIFT@10,22 IV 02/21/25 22:00 03/03/25 22:03 10 ML Albuterol 2.5 mg Q6HR NEB 02/24/25 18:00 03/04/25 07:17 2.5 MG Ipratropium [place] 0.5 mg Q6HR NEB 02/24/25 18:00 03/04/25 07:17 0.5 MG Ondansetron HCl 4 mg Q6HPRN PRN IV 02/26/25 22:30 Diphenhydramine HCl 25 mg Q6HR GT 02/27/25 12:00 03/02/25 06:00 25 MG Clonazepam 0.5 mg Q12HR GT 02/27/25 22:00 03/01/25 21:44 0.5 MG Dobutamine HCl/ Dextrose 250 ml @ 0 mls/hr Q0M IV 02/27/25 15:15 03/03/25 18:41 11.94 MLS/HR Norepinephrine Bitartrate 250 ml @ 1.875 mls/ hr Q24H IV 02/28/25 15:45 03/01/25 17:39 5.625 MLS/HR Furosemide 60 mg BIDD IV 03/02/25 18:00 03/04/25 05:55 60 MG Midodrine 10 mg TID@0600,1200,1800 PO 03/03/25 12:00 Laboratory Results Laboratory Tests 03/04/25 03:06 Chemistry Test 03/03/25 16:17 03/04/25 03:06 Albumin 3.0 g/dL (3.2-4.8) L Calcium Level 8.9 mg/dL (8.7-10.4) 8.9 mg/dL (8.7-10.4) Magnesium Level 2.0 mg/dL (1.6-2.6) 1.9 mg/dL (1.6-2.6) Total Protein 6.2 g/dL (5.7-8.2) Phosphorus Level 3.3 mg/dL (2.4-5.1) LFT Test 03/03/25 16:17 Alanine Aminotransferase (ALT) 29 U/L (7-40) Alkaline Phosphatase 120 U/L (46-116) H Aspartate Amino Transferase (AST) 56 U/L (13-40) H Total Bilirubin 1.4 mg/dL (0.2-1.0) H Urinalysis Test 02/14/25 11:30 02/19/25 13:50 Urine Protein/Creatinine Ratio 0.26 Urine Total Protein < 6.0 mg/dL (1-14) Urine Osmolality 587 mOsm/kg Urine Creatinine 76.95 mg/dL (30.0-125.0) Urine Sodium 79 mmol/L (40-220) Microbiology Microbiology Date/Time Source Procedure Growth Status 03/01/25 17:30 Pleural Fluid Gram Stain - Final Resulted 03/01/25 17:30 Pleural Fluid Body Fluid Culture - Preliminary No growth Resulted 02/13/25 08:15 Nose MRSA Screen - Final Complete 02/11/25 19:38 Blood Blood Culture - Final NO GROWTH AFTER 5 DAYS OF INCUBATION. Complete Assessment/Plan Assessment/Plan Impression: Acute hypoxemic respiratory failure Pleural effusion Atelectasis S/p cardiac arrest Cardiomyopathy Congestive heart failure Obesity Events: Patient was extubated yesterday Remains on supplemental oxygen On 2 LPM NC Taper O2 as tolerated Patient remains on his fixed dose of Dobutamine 2.5 mcg/min for inotropic support S/p right thoracentesis on 03/01/25 - 650 mL fluid removed. Off pressors - monitor hemodynamics. Continue antibiotics Continue bronchodilators Wound care. Midodrine for blood pressure support Obtain Podiatry consult Nephrology recs appreciated Maintain euvolemia Monitor renal function Monitor electrolytes. Supplement as necessary.. Potassium supplemented Tube feeds for nutritional support Patient remains NPO Bedside swallow eval - plan to start diet Head of bed elevation Aspiration precautions. S/p PICC line placement - PICC line is deemed medically necessary for administration of pressors. Abdomen x-ray shows no e/o bowel obstruction. Labs and imaging reviewed. Rest of plan as noted below. Plan: S/p extubation On supplemental oxygen Titrate to keep O2 sats above 90%. Patient is s/p right thoracentesis. Continue bronchodilators. Continue antibiotics. Follow up cultures. Monitor WBC count Pressors as necessary for hemodynamic support Titrate to keep mean arterial pressure greater than 65 mmHg. Patient with on and off bradycardia and NSVT On Dobutamine 2.5 mcg/min for inotropic support Plan for pacemaker placement. Echo report reviewed; EF approximately 20% Cardiology recs appreciated. On Protonix Monitor hemoglobin Tube feeds for nutritional support Follow up GI recs Diurese with Lasix Monitor renal function Monitor electrolytes. Supplement as necessary. Monitor ins and outs. Maintain euvolemia. GI prophylaxis -Protonix. DVT prophylaxis - Lovenox. Prognosis: Poor given patient's multiple co-morbidities. Condition: Critical Rest of plan per hospitalist and other consultants. A total of 35 minutes of critical care time was spent reviewing the patient record, examining the patient, making a diagnostic and therapeutic plan, discussing this plan with the medical personnel, following up on diagnostic studies and following the patient for clinical stability excluding any and all procedures. At least 50% of this time was spent in direct, [id number] contact. Thank you, Dr. Blas, for allowing me to participate in this patient's care. Further recommendations will depend on the patient's clinical course. Please do not hesitate to contact me if you have any questions or concerns. This medical document was created using an electronic medical record system with [employer] dictation system. Although these documentations are being carefully reviewed, there may still be some phonetic and typographical changes. The errors are purely typographical, due to imperfection on the software program, and do not reflect any compromise in the patient's medical care. Plan discussed with: Patient, Other (RN) Visit Coding Pulmonary Billing Provider: DOLORES VELAZQUEZ MD Date of Service if different f: Mar 03, 2025 Common Visit Codes: [id number] INP/OBS CARE(HIGH), [id number] CARE 30-74 MIN DOLORES VELAZQUEZ MD Mar 04, 2025 08:32
--- NOTE | 2025-03-04 10:35 | DVHPN2 ---
Reviewed: Care Plan, H&P, Labs, Medications, Previous Orders, Radiology Changes from previous H/P or p: No Changes General: Per HPI Eyes: No Pain, No Vision change, No Conjunctivae inflammation, No Eyelid inflammation, No Other, No Redness ENT: No Ear pain, No Ear discharge, No Nose pain, No Nose discharge, No Nose congestion, No Mouth pain, No Mouth swelling, No Throat pain, No Throat swelling, No Other Cardiovascular: No Chest Pain, No Palpitations, No Orthopnea, No Paroxysmal Noc. Dyspnea, No Edema, No Lt Headedness, No Other Respiratory: No Cough, No Dry; Shortness of breath, SOB with excertion; No Wheezing, No Hemoptysis, No Pleuritic Pain, No Sputum; Other (SOB at rest) Gastrointestinal: No Nausea, No Vomiting; Abdominal Pain; No Diarrhea, No Constipation, No Melena, No Hematochezia; Other (Abdominal distention) Genitourinary: No Dysuria, No Frequency, No Incontinence, No Hematuria, No Retention, No Other Musculoskeletal: No other, No neck pain, No shoulder pain, No arm pain, No back pain, No hand pain, No leg pain, No foot pain Skin: No Rash, No Lesions, No Jaundice, No Bruising; Other (Lower extremity open wounds) Objective Vitals Vital Signs Date Time Temp Pulse Resp B/P (MAP) Pulse Ox O2 Delivery O2 Flow Rate FiO2 03/04/25 10:00 15 92 Nasal Cannula* 2 28 03/04/25 10:00 83 85/36 (52) 03/04/25 08:00 98.4 98.4 Intake/Output Intake and Output 03/04/25 07:00 Intake Total 1059.56 ml Output Total 1700 ml Balance -640.44 ml Intake Oral 10 ml IV Total 1049.56 ml Output Urine Total 1700 ml HEENT: Atraumatic, PERRLA, EOMI, Mucous membr. moist/pink Neck: Supple Lungs: Clear to auscultation, Normal air movement Cardiovascular: Regular rate, Normal S1, Normal S2, No murmurs, Gallops, Rubs Abdomen: Normal bowel sounds, Soft, No tenderness Medications Current Medications Medications Dose Ordered Sig/Geraldo Route Start Time Stop Time Status Last Admin Dose Admin Diagnostic Test (Pha) 1 strip ACHS 02/12/25 07:00 03/04/25 06:17 1 STRIP Insulin Human Regular ACHS SC 02/12/25 07:00 02/26/25 17:22 2 UNITS Dextrose 50 ml UD PRN IV 02/11/25 22:15 03/03/25 05:46 50 ML Acetaminophen 650 mg Q6HP PRN PO 02/11/25 22:15 Aspirin 81 mg DAILY PO 02/12/25 10:00 03/01/25 09:17 81 MG Nicotine 1 patch DAILY TD 02/13/25 10:00 03/03/25 10:49 1 PATCH Sennosides 8.6 mg HS PO 02/14/25 22:00 03/01/25 21:22 8.6 MG Quetiapine Fumarate 25 mg BID PO 02/15/25 10:00 03/01/25 21:28 25 MG Pantoprazole Sodium 40 mg DAILY IV 02/17/25 10:00 03/03/25 10:54 40 MG Lactulose 30 ml BID PO 02/17/25 22:00 03/01/25 21:22 30 ML Sodium Chloride 10 ml QSHIFT@10,22 IV 02/21/25 22:00 03/03/25 22:03 10 ML Albuterol 2.5 mg Q6HR NEB 02/24/25 18:00 03/04/25 07:17 2.5 MG Ipratropium Dresser 0.5 mg Q6HR NEB 02/24/25 18:00 03/04/25 07:17 0.5 MG Ondansetron HCl 4 mg Q6HPRN PRN IV 02/26/25 22:30 Diphenhydramine HCl 25 mg Q6HR GT 02/27/25 12:00 03/02/25 06:00 25 MG Clonazepam 0.5 mg Q12HR GT 02/27/25 22:00 03/01/25 21:44 0.5 MG Dobutamine HCl/ Dextrose 250 ml @ 0 mls/hr Q0M IV 02/27/25 15:15 03/03/25 18:41 11.94 MLS/HR Norepinephrine Bitartrate 250 ml @ 1.875 mls/ hr Q24H IV 02/28/25 15:45 03/01/25 17:39 5.625 MLS/HR Furosemide 60 mg BIDD IV 03/02/25 18:00 03/04/25 05:55 60 MG Midodrine 10 mg TID@0600,1200,1800 PO 03/03/25 12:00 Laboratory Results Laboratory Tests 03/04/25 03:06 Chemistry Test 03/03/25 16:17 03/04/25 03:06 Albumin 3.0 g/dL (3.2-4.8) L Calcium Level 8.9 mg/dL (8.7-10.4) 8.9 mg/dL (8.7-10.4) Magnesium Level 2.0 mg/dL (1.6-2.6) 1.9 mg/dL (1.6-2.6) Total Protein 6.2 g/dL (5.7-8.2) Phosphorus Level 3.3 mg/dL (2.4-5.1) LFT Test 03/03/25 16:17 Alanine Aminotransferase (ALT) 29 U/L (7-40) Alkaline Phosphatase 120 U/L (46-116) H Aspartate Amino Transferase (AST) 56 U/L (13-40) H Total Bilirubin 1.4 mg/dL (0.2-1.0) H Urinalysis Test 02/14/25 11:30 02/19/25 13:50 Urine Protein/Creatinine Ratio 0.26 Urine Total Protein < 6.0 mg/dL (1-14) Urine Osmolality 587 mOsm/kg Urine Creatinine 76.95 mg/dL (30.0-125.0) Urine Sodium 79 mmol/L (40-220) Microbiology Microbiology Date/Time Source Procedure Growth Status 03/01/25 17:30 Pleural Fluid Gram Stain - Final Resulted 03/01/25 17:30 Pleural Fluid Body Fluid Culture - Preliminary No growth Resulted 02/13/25 08:15 Nose MRSA Screen - Final Complete 02/11/25 19:38 Blood Blood Culture - Final NO GROWTH AFTER 5 DAYS OF INCUBATION. Complete Labs and/or images reviewed: Labs reviewed by me, Image(s) reviewed by me Assessment/Plan Assessment/Plan 64 M with HTN, HFrEF 20%, DM, ascites, meth use admitted for SOB, later was found in respiratory distress, intubated and had PEA arrest, ROSC in 4 minutes. 02/14 s/p thora, 2 L out. switched to lasix drip. start TF. POCUS done, minimal tapable pocket in abdomen. wound culture with prelim growth. wound care 02/15 wound culture back, changed abx to vanc and layton, starting oral meds for weaning, patient previously agitated, to decrease prevent self extubation. lasix drip switched to 60 BID. SAT SBT tomorrow. 02/16 hold diuresis today, POCUS with improving IVC, off sedation, not waking up still. 02/17 adding diamox, metabolic alkalosis, decrease RR, holding methadone and klonazepam, off sedation, opening eyes to name, not following command, c/w SAT SBT. 02/18 off sedation and calm 02/19 continues to remain intubated and off sedation 02/20 agitated, restarting methadone and clonazepam. will d/w [facility] regarding trach if he continues to be difficult to sedate. positive balance, readding lasix, discontinueing fluid. 02/21 POCUS done, IVC >2cm with no excursion, severely reduced EF. net positive the past 2 days, doubling lasix dose. back on pressor. follows commands once. once stable will get CT angio to see if he will need intervention. podiatry consult 02/22 b/l UE superficial thrombus, no deep vein thrombus, dc tlc, continue to titrate off pressor, c/w diuresis. daily SAT SBT. i called family but went to . plan for extubation vs trach, possibly without full mental status if doing well during cpap 02/23 seen today, still on sedation. on and off having bradycardia and NSVT. cardio reconsulted today. starting dobutamine, c/w lasix acetazolamide 02/24 adequate diuresis, stion dobu and levo, no increase ectopy. no mental status. called fam member but went to again. consult for trach and peg. 02/27 called franco, he does not want to make medical decision and deferred to anali sister. called anali, consent signed for trach peg. 02/28 surg consult for trach. pt with minimal response, unclear if following commands. will do cpap for exercise but likely proceed with trach and LTACH transfer. 03/01 pending trach today.later patient mental status improved, cpap for 2 hours. 03/02 extubated to cool mist. pending bedside swallow. still on dobu and levo 03/03 add midodrine, replete lytes. comfortable. bedside swallow, start diet, dc methadone, podiatry consult. c/w dobu fixed dose, off pressors, dg to tele w sitter 03/04, likely homeless patient, presented initially with abdominal pain has started having bradycardia had coded on the floor. While in ICU patient has been getting diuresis on dobutamine drip which is being also required to maintain pressure currently. Patient was extubated 03/02, since then has been unable to swallow repeated feels of swallow eval bedside by RN, we will order official INFORMATION DELIVERY ANALYST eval, we will give Solu-Medrol 20 and further humidified nebulizer treatments and we will reassess RN bedside swallow. Start Clinimix. If patient continues to fail we will have to put NG tube to give psych meds. Currently patient is nonverbal but does follow some commands. Patient is full code, poor prognosis would recommend DNR DNI. Otherwise continue primary team's management plan. called ex nannette, per ex , both sons will make medical decision together, given contact number of son through his boss. Norma Torito [phone] and son is Franco. Explained to Franco (son) regarding trach and peg and need of possible ppm and angiogram. he understands, will discuss with family and get back with a decision tomorrow. Per normafranco to be reached at [phone] and [phone] (gf). franco does not want to make medical decision and defer to sister anali. d/w anali, agrees for trach peg and LTACH placement. physical exam follows command obese cannot appreciate JVD mechanical breath soundsl S1 S2 systolic murmur abdomen distended b/l LE edema w/ chronic venous wounds R foot with multiple gangrene dry and wet drips levophed dobu labs reviewed acetinobacter, pseudomonas, e faecalis, MRSA in wound cultrue imaging cxr RLL opacity echo LVEF 20%, DCM, MR assessment and plan s/p PEA arrest ROSC 4 mins cardiogenic shock acute on chronic hypoxic RF acute on chronic systolic HF acute metabolic encephalopathy small R PLEF COPD with exacerbation PNA gp vs gn HFrEF 20% DCM transaminitis cirrhosis? ascites? ALEXIS likely VMN lactic acidosis meth use leukocytosis type 2 [place] demand ischemia DM? chronic venous stasis wound with multiple bact L testicular mass? foot gangrene b/l UE superficial thrombosis high degree block NSVT ICU extubated titrate levophed to maintain MAP >60 c/w diuresis close to euvolemic titrate down methadone, klonopin, c/w seroquel c/w vanc , zosyn switched to layton avoid fever VAP bundle bronchodilators hold GDMT until off pressors send A1C, lipid, tsh wound care podiatry consult CTA runoff once stable dobutamine to assist diuresis and inotropy, will dc if NSVT increased keep K 4 Ph 3 Mg 2 Diet hold until passed bedside swallow DVT PPX lovenox GI PPX protonix Lines picc jaffe Full code condition critical prognosis poor Plan discussed with: Patient Date of Service: Mar 04, 2025 Billing Provider: SUJEY BORJA MD Common Visit Codes: [id number] CARE 30-74 MIN SUJEY BORJA MD Mar 04, 2025 10:35
--- NOTE | 2025-03-04 13:51 | DVH ---
CHEST RADIOGRAPH INDICATION: NG PLACEMENT TECHNIQUE: XY CHEST PORTABLE COMPARISON: 03/01/2025 FINDINGS: Nasogastric tube courses more tortuous and projects over the left upper quadrant of the abdomen / left lower lung when compared to the examination from 03/01/2025. Left PICC line tip projects over the SVC The cardiac silhouette is enlarged. The lungs demonstrate bilateral patchy airspace opacities most pronounced in the left lower lobe. The pulmonary vasculature is prominent. Small left pleural effusion. There is no pneumothorax. IMPRESSION: Nasogastric tube courses more tortuous and projects over the left upper quadrant of the abdomen / left lower lung. Recommend lateral radiograph and/or CT abdomen to confirm positioning and exclude malpositioning within the lung. Findings communicated to nurse Contreras at 1:48 p.m. On 03/04/2025. Cardiomegaly with pulmonary vascular congestion and bilateral patchy airspace opacities.
[2025-03-04] MEDS: POTASSIUM CHL 20MEQ/100ML 100 ML IV SCH (14:01)
[2025-03-04] MEDS: methylPREDNISolone SOD SUCC 40 MG/ML VL IV ONE (14:05)
--- NOTE | 2025-03-04 14:38 | DVH ---
CHEST RADIOGRAPH INDICATION: NGT PLACEMENT S/P REINSERTION DUE TO CRITICAL FINDING IN LNG TECHNIQUE: XY CHEST PORTABLE COMPARISON: Chest radiograph from today FINDINGS: The nasogastric tube projects towards the expected region of the stomach. Left PICC line tip projects over the SVC. The cardiac silhouette is enlarged. The lungs demonstrate bilateral patchy airspace opacities. The pulmonary vasculature is prominent. Small bilateral pleural effusions, [id number]. There is no pneumothorax. IMPRESSION: Cardiomegaly with pulmonary vascular congestion and bilateral patchy airspace opacities. Nasogastric tube projects towards the expected region of the stomach. Small bilateral pleural effusions.
--- NOTE | 2025-03-04 21:18 | DVHPN2 ---
Progress Note - Dictate Date Seen: Mar 04, 2025 Has the PT tested + for MRSA If YES, has PT been informed?: No Medical Necessity Reason Pt with a Central, PICC or Fol: Yes The following are medically ne: Central Line, Aguilar Catheter Subjective Patient was seen and evaluated in follow up in the ICU. Patient is on 2 LPM NC. Patient remains on his fixed dose of Dobutamine 2.5 mcg/min for inotropic support. Patient is off vasopressors. Currently patient is nonverbal but does follow some commands. K 3.1, CL 96, CO2 34. vital signs Vital Sign Date Time Temp Pulse Resp B/P (MAP) Pulse Ox O2 Delivery O2 Flow Rate FiO2 03/04/25 10:00 15 92 Nasal Cannula* 2 28 03/04/25 10:00 83 85/36 (52) 03/04/25 08:00 98.4 98.4 Total Intake and Output 03/03/25 03/03/25 03/04/25 15:00 23:00 07:00 Intake Total 525.52 ml 233.52 ml 300.52 ml Output Total 1250 ml 450 ml Balance 525.52 ml -1016.48 ml -149.48 ml medications Current Medications Medications Dose Ordered Sig/Geraldo Route Start Time Stop Time Status Last Admin Dose Admin Diagnostic Test (Pha) 1 strip ACHS 02/12/25 07:00 03/04/25 11:33 1 STRIP Insulin Human Regular ACHS SC 02/12/25 07:00 02/26/25 17:22 2 UNITS Dextrose 50 ml UD PRN IV 02/11/25 22:15 03/03/25 05:46 50 ML Acetaminophen 650 mg Q6HP PRN PO 02/11/25 22:15 Aspirin 81 mg DAILY PO 02/12/25 10:00 03/01/25 09:17 81 MG Nicotine 1 patch DAILY TD 02/13/25 10:00 03/03/25 10:49 1 PATCH Sennosides 8.6 mg HS PO 02/14/25 22:00 03/01/25 21:22 8.6 MG Quetiapine Fumarate 25 mg BID PO 02/15/25 10:00 03/01/25 21:28 25 MG Pantoprazole Sodium 40 mg DAILY IV 02/17/25 10:00 03/03/25 10:54 40 MG Lactulose 30 ml BID PO 02/17/25 22:00 03/01/25 21:22 30 ML Sodium Chloride 10 ml QSHIFT@10,22 IV 02/21/25 22:00 03/03/25 22:03 10 ML Albuterol 2.5 mg Q6HR NEB 02/24/25 18:00 03/04/25 07:17 2.5 MG Ipratropium Aragon 0.5 mg Q6HR NEB 02/24/25 18:00 03/04/25 07:17 0.5 MG Ondansetron HCl 4 mg Q6HPRN PRN IV 02/26/25 22:30 Diphenhydramine HCl 25 mg Q6HR GT 02/27/25 12:00 03/02/25 06:00 25 MG Clonazepam 0.5 mg Q12HR GT 02/27/25 22:00 03/01/25 21:44 0.5 MG Dobutamine HCl/ Dextrose 250 ml @ 0 mls/hr Q0M IV 02/27/25 15:15 03/03/25 18:41 11.94 MLS/HR Norepinephrine Bitartrate 250 ml @ 1.875 mls/ hr Q24H IV 02/28/25 15:45 03/01/25 17:39 5.625 MLS/HR Furosemide 60 mg BIDD IV 03/02/25 18:00 03/04/25 05:55 60 MG Midodrine 10 mg TID@0600,1200,1800 PO 03/03/25 12:00 objective GENERAL: Ill appearing, Awake. EYES: PERRL, EOMI. Anicteric. HENT: Moist mucous membranes. LUNGS: Decreased breath sounds. CARDIOVASCULAR: Regular rate and rhythm. ABDOMEN: Soft, nontender and nondistended. EXTREMITIES: No edema. SKIN: Warm, dry. laboratory and microbiology Laboratory Tests 03/04/25 03:06 Test 03/04/25 03:06 Range/Units Serum Glucose 78 74-106 mg/dL Problem List S/P PEA arrest. Cardiogenic shock. Acute hypoxic respiratory failure Systolic Heart failure with reduced ejection fraction. NSTEMI. Hypertension. Hyperkalemia. Small R pleural effusion. COPD with exacerbation. PNA. DCM. Transaminitis. ALEXIS. Lactic acidosis. Meth use. Leukocytosis. Type 2 [place] demand ischemia. Chronic venous stasis. Foot gangrene. L/l UE superficial thrombosis. High degree block. NSVT. Assessment/Plan Continued all current supportive medical care. Aspirin. Diuretics with Lasix. Vasopressors for hemodynamic support. GI prophylactics. Midodrine. Nebulized breathing treatments. Additional plan as per the hospital course. Critical care time of 45 minutes provided to include time spent evaluation of patient at bedside, when appropriate patient/family education for diagnosis, treatment plan, review of pertinent medical information and discussion of care with specialty providers and PCP. Dietary Evaluation Review Comments: CCHO-60 Cardiac diet, texture as tolearated when medically feasible nicotine cessation counseling Follow up with updated lab values Expected Outcomes/Goals: Improved nurition related lab values, free from nicotine Plan discussed with: Patient SHARMILA BENDER MD Mar 04, 2025 12:02
--- NOTE | 2025-03-04 22:29 | DVHPN2 ---
Subjective DOS: 03/04/2025 Patient seen and examined at bedside. Remains on supplemental oxygen Overnight events reviewed.. Reviewed: Care Plan, H&P, Labs, Medications, Previous Orders, Radiology Changes from previous H/P or p: No Changes General: Per HPI Eyes: No Pain, No Vision change, No Conjunctivae inflammation, No Eyelid inflammation, No Other, No Redness ENT: No Ear pain, No Ear discharge, No Nose pain, No Nose discharge, No Nose congestion, No Mouth pain, No Mouth swelling, No Throat pain, No Throat swelling, No Other Cardiovascular: No Chest Pain, No Palpitations, No Orthopnea, No Paroxysmal Noc. Dyspnea, No Edema, No Lt Headedness, No Other Respiratory: No Cough, No Dry; Shortness of breath, SOB with excertion; No Wheezing, No Hemoptysis, No Pleuritic Pain, No Sputum; Other (SOB at rest) Gastrointestinal: No Nausea, No Vomiting; Abdominal Pain; No Diarrhea, No Constipation, No Melena, No Hematochezia; Other (Abdominal distention) Genitourinary: No Dysuria, No Frequency, No Incontinence, No Hematuria, No Retention, No Other Musculoskeletal: No other, No neck pain, No shoulder pain, No arm pain, No back pain, No hand pain, No leg pain, No foot pain Skin: No Rash, No Lesions, No Jaundice, No Bruising; Other (Lower extremity open wounds) Objective Vitals Vital Signs Date Time Temp Pulse Resp B/P (MAP) Pulse Ox O2 Delivery O2 Flow Rate FiO2 03/04/25 22:16 92 20 101/65 (77) 97 03/04/25 22:00 Room Air* 0 21 03/04/25 20:01 98.1 98.1 Intake/Output Intake and Output 03/04/25 07:00 Intake Total 1059.56 ml Output Total 1700 ml Balance -640.44 ml Intake Oral 10 ml IV Total 1049.56 ml Output Urine Total 1700 ml Exam Gen.: Patient lying in bed in no apparent distress. On supplemental oxygen. Head: Normocephalic, atraumatic. Eyes: EOMI/PERRLA. Ears: Normal hearing. Normal anatomy. Neck/trachea: Trachea midline, supple. Nose: Normal external anatomy. Mouth: Moist mucous membranes. Chest: Decreased air entry bilaterally. No wheezing or rhonchi. Cardiovascular: Positive S1, positive S2. Regular rate and rhythm. Abdomen: Positive bowel sounds in all 4 quadrants. Soft, non-tender, non- distended. : Deferred. Rectal: Deferred. Skin: Warm, dry. Intact. Extremities: 2+ radial pulses bilaterally. No lower extremity edema. Neuro: Awake, ill appearing. No gross motor or sensory deficits. Cranial nerves II through XII intact. Gait not assessed. HEENT: Atraumatic, PERRLA, EOMI, Mucous membr. moist/pink Neck: Supple Lungs: Clear to auscultation, Normal air movement Cardiovascular: Regular rate, Normal S1, Normal S2, No murmurs, Gallops, Rubs Abdomen: Normal bowel sounds, Soft, No tenderness Medications Current Medications Medications Dose Ordered Sig/Geraldo Route Start Time Stop Time Status Last Admin Dose Admin Diagnostic Test (Pha) 1 strip ACHS 02/12/25 07:00 03/04/25 21:44 1 STRIP Insulin Human Regular ACHS SC 02/12/25 07:00 02/26/25 17:22 2 UNITS Dextrose 50 ml UD PRN IV 02/11/25 22:15 03/03/25 05:46 50 ML Acetaminophen 650 mg Q6HP PRN PO 02/11/25 22:15 Aspirin 81 mg DAILY PO 02/12/25 10:00 03/04/25 14:24 81 MG Nicotine 1 patch DAILY TD 02/13/25 10:00 03/04/25 14:06 1 PATCH Sennosides 8.6 mg HS PO 02/14/25 22:00 03/04/25 21:43 8.6 MG Quetiapine Fumarate 25 mg BID PO 02/15/25 10:00 03/04/25 21:43 25 MG Pantoprazole Sodium 40 mg DAILY IV 02/17/25 10:00 03/04/25 14:05 40 MG Lactulose 30 ml BID PO 02/17/25 22:00 03/04/25 21:43 30 ML Sodium Chloride 10 ml QSHIFT@10,22 IV 02/21/25 22:00 03/04/25 21:43 10 ML Albuterol 2.5 mg Q6HR NEB 02/24/25 18:00 03/04/25 18:37 2.5 MG Ipratropium Catano 0.5 mg Q6HR NEB 02/24/25 18:00 03/04/25 18:36 0.5 MG Ondansetron HCl 4 mg Q6HPRN PRN IV 02/26/25 22:30 Diphenhydramine HCl 25 mg Q6HR GT 02/27/25 12:00 03/04/25 18:02 25 MG Clonazepam 0.5 mg Q12HR GT 02/27/25 22:00 03/04/25 21:43 0.5 MG Dobutamine HCl/ Dextrose 250 ml @ 0 mls/hr Q0M IV 02/27/25 15:15 03/04/25 14:05 11.94 MLS/HR Norepinephrine Bitartrate 250 ml @ 1.875 mls/ hr Q24H IV 02/28/25 15:45 03/01/25 17:39 5.625 MLS/HR Furosemide 60 mg BIDD IV 03/02/25 18:00 03/04/25 18:02 60 MG Midodrine 10 mg TID@0600,1200,1800 PO 03/03/25 12:00 03/04/25 18:02 10 MG Laboratory Results Laboratory Tests 03/04/25 03:06 Chemistry Test 03/04/25 03:06 Calcium Level 8.9 mg/dL (8.7-10.4) Magnesium Level 1.9 mg/dL (1.6-2.6) Phosphorus Level 3.3 mg/dL (2.4-5.1) Urinalysis Test 02/14/25 11:30 02/19/25 13:50 Urine Protein/Creatinine Ratio 0.26 Urine Total Protein < 6.0 mg/dL (1-14) Urine Osmolality 587 mOsm/kg Urine Creatinine 76.95 mg/dL (30.0-125.0) Urine Sodium 79 mmol/L (40-220) Microbiology Microbiology Date/Time Source Procedure Growth Status 03/01/25 17:30 Pleural Fluid Gram Stain - Final Resulted 03/01/25 17:30 Pleural Fluid Body Fluid Culture - Preliminary No growth Resulted 02/13/25 08:15 Nose MRSA Screen - Final Complete 02/11/25 19:38 Blood Blood Culture - Final NO GROWTH AFTER 5 DAYS OF INCUBATION. Complete Assessment/Plan Assessment/Plan Impression: Acute hypoxemic respiratory failure Pleural effusion Atelectasis S/p cardiac arrest Cardiomyopathy Congestive heart failure Obesity Events: Patient was extubated yesterday Remains on supplemental oxygen On 2 LPM NC Taper O2 as tolerated NGT in place. Speech and Swallow eval - patient failed swallow evaluation. Patient remains on his fixed dose of Dobutamine 2.5 mcg/min for inotropic support Off pressors - monitor hemodynamics. Continue antibiotics Continue bronchodilators Continue steroids Wound care. Midodrine for blood pressure support Obtain Podiatry consult Nephrology recs appreciated Diurese to maintain euvolemia Monitor renal function Monitor electrolytes. Supplement as necessary.. Potassium, magnesium supplemented Tube feeds for nutritional support Patient remains NPO Failed swallow eval Head of bed elevation Aspiration precautions. S/p right thoracentesis on 03/01/25 - 650 mL fluid removed. S/p PICC line placement - PICC line is deemed medically necessary for administration of pressors. Abdomen x-ray shows no e/o bowel obstruction. Labs and imaging reviewed. Rest of plan as noted below. Plan: S/p extubation On supplemental oxygen Titrate to keep O2 sats above 90%. Patient is s/p right thoracentesis. Continue bronchodilators. Continue antibiotics. Follow up cultures. Monitor WBC count Pressors as necessary for hemodynamic support Titrate to keep mean arterial pressure greater than 65 mmHg. Patient with on and off bradycardia and NSVT On Dobutamine 2.5 mcg/min for inotropic support Plan for pacemaker placement. Echo report reviewed; EF approximately 20% Cardiology recs appreciated. On Protonix Monitor hemoglobin Tube feeds for nutritional support Follow up GI recs Diurese with Lasix Monitor renal function Monitor electrolytes. Supplement as necessary. Monitor ins and outs. Maintain euvolemia. GI prophylaxis -Protonix. DVT prophylaxis - Lovenox. Prognosis: Poor given patient's multiple co-morbidities. Condition: Critical Rest of plan per hospitalist and other consultants. A total of 35 minutes of critical care time was spent reviewing the patient record, examining the patient, making a diagnostic and therapeutic plan, discussing this plan with the medical personnel, following up on diagnostic studies and following the patient for clinical stability excluding any and all procedures. At least 50% of this time was spent in direct, [id number] contact. Thank you, Dr. Blas, for allowing me to participate in this patient's care. Further recommendations will depend on the patient's clinical course. Please do not hesitate to contact me if you have any questions or concerns. This medical document was created using an electronic medical record system with [employer] dictation system. Although these documentations are being carefully reviewed, there may still be some phonetic and typographical changes. The errors are purely typographical, due to imperfection on the software program, and do not reflect any compromise in the patient's medical care. Plan discussed with: Patient, Other (RN Suzette) My Orders Orders - DOLORES VELAZQUEZ MD Procedure Category Date Status Time Speech Pathologist [facility] 03/04/25 In Process Eval: Radha 13:15 Visit Coding Pulmonary Billing Provider: DOLORES VELAZQUEZ MD Date of Service if different f: Mar 04, 2025 Common Visit Codes: [id number] INP/OBS CARE(HIGH), [id number] CARE 30-74 MIN DOLORES VELAZQUEZ MD Mar 04, 2025 22:29
--- NOTE | 2025-03-04 23:02 | DVHNC2 ---
Other Procedure Procedure ULTRASOUND-GUIDED RIGHT INTERNAL JUGULAR HD Simba catheter CPT Codes: 20325 (ultrasound guidance) 45149 (insertion of non-tunneled centrally inserted HD catheter 73386 (CXR interpretation) DATE: 03/04/25 PHYSICIAN: Sujey Alvarado MD PREOPERATIVE DIAGNOSIS: POSTOPERATIVE DIAGNOSIS: PROCEDURE PERFORMED: Limited Ultrasound-guided Right internal jugular HD catheter ANESTHESIA: 2 mL of 1% lidocaine plain. ESTIMATED BLOOD LOSS: less than 5 mL. SPECIMENS: None. COMPLICATIONS: None. INDICATIONS FOR PROCEDURE: The patient is in need of large bore IV access for administration of fluids, including blood products and vasoactive drugs, possible transvenous cardiac pacing and CVP monitoring for hemodynamic inst ability. DESCRIPTION OF PROCEDURE IN DETAIL: The patient was lying in the Trendelenburg position with head turned 30 degrees away from the insertion site. The skin was thoroughly sponged with chlorhexidine and allowed to dry. All persons involved were shielded with hair nets, face masks and sterile gowns. With sterile-gloved hands the right neck area was draped with the large disposable sterile field provided in the pre-manufactured kit. The skin and subcutaneous tissues superficial to the RIGHT internal jugular vein were anesthetized with 2 mL of 1% lidocaine. The RIGHT internal jugular vein was identified on ultrasound from the angle of the mandible down into the supraclavicular fossa using the linear ultrasound probe in the transverse orientation. The carotid artery was identified and avoided utilizing color-flow. The internal jugular vein was then placed in the center of the ultrasound field and compressed for patency. A movement artifact was identified as the needle was advanced through the skin and advanced toward the vessel. A real time hyperechoic signal revealed visualization of vascular needle entry into the lumen as blood was noted to flashback in the syringe. The needle was then held in place while the guide wire was advanced. The needle was then removed. Direct visualization of guide wire location within the vein was noted on ultrasound indicating proper placement and was document in the electronic medical record chart. A skin dilator was advanced over the guidewire and removed, and the HD catheter was then advanced over the guide wire into proper position. The guide wire was removed and discarded. The ports were aspirated which showed good blood return and then carefully flushed with normal saline. The catheter was stabilized and sutured to the skin with 2-0 silk at 4 anchor points. A sterile bio-patch and dressing was placed over the catheter, including the insertion site. The patient tolerated the procedure well. A chest x-ray was ordered for position confirmation. I reviewed the image immediately after it was taken at bedside. Post-procedure chest x-ray demonstrates the HD line in the superior vena and no evidence of any pneumothorax. An image recording of the procedure accompanies the chart. sujey Alvarado MD 03/04/25 Date of Service: Mar 04, 2025 Billing Provider: SUJEY BORJA MD Common Visit Codes: PROCEDURE ONLY Procedure Codes: 54993-SPIOTK NON-TUNNEL CV CATH SUJEY BORJA MD Mar 04, 2025 23:02
[2025-03-05] VITALS (104 sets, daily range): BP systolic 80–114; BP diastolic 47–73; PULSE 67–101; RESP 12–27; TEMP 97–98.5; O2SAT 87–100
[2025-03-05 04:06] LABS: Hematocrit 39.5 % (41.0-53.0); Hemoglobin 13.2 g/dL (13.5-17.5); Mean Corpuscular Hemoglobin 29.9 pg (28.0-32.0); Mean Corpuscular Volume 89.3 fL (80.0-100.0); Nucleated Red Blood Cells % 0.0 %
[2025-03-05 04:21] LABS: Alanine Aminotransferase 28 U/L (7-40); Albumin 3.3 g/dL (3.2-4.8); Anion Gap 9 (5-15); BUN/Creatinine Ratio 18.3 (10.0-20.0); Bilirubin, Total 1.2 mg/dL (0.2-1.0); Blood Urea Nitrogen 11 mg/dL (9-23); Calcium 9.1 mg/dL (8.7-10.4); Glucose 91 mg/dL (74-106); Potassium 3.5 mmol/L (3.5-5.1); Sodium 138 mmol/L (136-145); Total Protein 6.8 g/dL (5.7-8.2)
[2025-03-05 04:28] LABS: Alkaline Phosphatase 119 U/L (46-116); Carbon Dioxide 33 mmol/L (20-31); Chloride 96 mmol/L (98-107)
[2025-03-05] MEDS: POTASSIUM CHL 20MEQ/100ML 100 ML IV SCH (06:17)
--- NOTE | 2025-03-05 10:42 | DVHPN2 ---
Reviewed: Care Plan, H&P, Labs, Medications, Previous Orders, Radiology Changes from previous H/P or p: No Changes General: Per HPI Eyes: No Pain, No Vision change, No Conjunctivae inflammation, No Eyelid inflammation, No Other, No Redness ENT: No Ear pain, No Ear discharge, No Nose pain, No Nose discharge, No Nose congestion, No Mouth pain, No Mouth swelling, No Throat pain, No Throat swelling, No Other Cardiovascular: No Chest Pain, No Palpitations, No Orthopnea, No Paroxysmal Noc. Dyspnea, No Edema, No Lt Headedness, No Other Respiratory: No Cough, No Dry; Shortness of breath, SOB with excertion; No Wheezing, No Hemoptysis, No Pleuritic Pain, No Sputum; Other (SOB at rest) Gastrointestinal: No Nausea, No Vomiting; Abdominal Pain; No Diarrhea, No Constipation, No Melena, No Hematochezia; Other (Abdominal distention) Genitourinary: No Dysuria, No Frequency, No Incontinence, No Hematuria, No Retention, No Other Musculoskeletal: No other, No neck pain, No shoulder pain, No arm pain, No back pain, No hand pain, No leg pain, No foot pain Skin: No Rash, No Lesions, No Jaundice, No Bruising; Other (Lower extremity open wounds) Objective Vitals Vital Signs Date Time Temp Pulse Resp B/P (MAP) Pulse Ox O2 Delivery O2 Flow Rate FiO2 03/05/25 08:45 84 16 102/62 (75) 100 03/05/25 08:00 Nasal Cannula* 2 28 03/05/25 08:00 97.5 97.5 Intake/Output Intake and Output 03/05/25 07:00 Intake Total 801.56 ml Output Total 2100 ml Balance -1298.44 ml Intake Oral 175 ml IV Total 626.56 ml Output Urine Total 2100 ml HEENT: Atraumatic, PERRLA, EOMI, Mucous membr. moist/pink Neck: Supple Lungs: Clear to auscultation, Normal air movement Cardiovascular: Regular rate, Normal S1, Normal S2, No murmurs, Gallops, Rubs Abdomen: Normal bowel sounds, Soft, No tenderness Medications Current Medications Medications Dose Ordered Sig/Geraldo Route Start Time Stop Time Status Last Admin Dose Admin Diagnostic Test (Pha) 1 strip ACHS 02/12/25 07:00 03/05/25 06:23 1 STRIP Insulin Human Regular ACHS SC 02/12/25 07:00 02/26/25 17:22 2 UNITS Dextrose 50 ml UD PRN IV 02/11/25 22:15 03/03/25 05:46 50 ML Acetaminophen 650 mg Q6HP PRN PO 02/11/25 22:15 Aspirin 81 mg DAILY PO 02/12/25 10:00 03/04/25 14:24 81 MG Nicotine 1 patch DAILY TD 02/13/25 10:00 03/04/25 14:06 1 PATCH Sennosides 8.6 mg HS PO 02/14/25 22:00 03/04/25 21:43 8.6 MG Quetiapine Fumarate 25 mg BID PO 02/15/25 10:00 03/04/25 21:43 25 MG Pantoprazole Sodium 40 mg DAILY IV 02/17/25 10:00 03/04/25 14:05 40 MG Lactulose 30 ml BID PO 02/17/25 22:00 03/04/25 21:43 30 ML Sodium Chloride 10 ml QSHIFT@10,22 IV 02/21/25 22:00 03/04/25 21:43 10 ML Albuterol 2.5 mg Q6HR NEB 02/24/25 18:00 03/05/25 07:19 2.5 MG Ipratropium [place] 0.5 mg Q6HR NEB 02/24/25 18:00 03/05/25 07:19 0.5 MG Ondansetron HCl 4 mg Q6HPRN PRN IV 02/26/25 22:30 Diphenhydramine HCl 25 mg Q6HR GT 02/27/25 12:00 03/05/25 06:23 25 MG Clonazepam 0.5 mg Q12HR GT 02/27/25 22:00 03/04/25 21:43 0.5 MG Dobutamine HCl/ Dextrose 250 ml @ 0 mls/hr Q0M IV 02/27/25 15:15 03/05/25 03:35 11.94 MLS/HR Norepinephrine Bitartrate 250 ml @ 1.875 mls/ hr Q24H IV 02/28/25 15:45 03/01/25 17:39 5.625 MLS/HR Furosemide 60 mg BIDD IV 03/02/25 18:00 03/05/25 06:17 60 MG Midodrine 10 mg TID@0600,1200,1800 PO 03/03/25 12:00 03/05/25 06:16 10 MG Laboratory Results Laboratory Tests 03/05/25 03:29 Chemistry Test 03/05/25 03:29 Albumin 3.3 g/dL (3.2-4.8) Calcium Level 9.1 mg/dL (8.7-10.4) Total Protein 6.8 g/dL (5.7-8.2) LFT Test 03/05/25 03:29 Alanine Aminotransferase (ALT) 28 U/L (7-40) Alkaline Phosphatase 119 U/L (46-116) H Aspartate Amino Transferase (AST) 56 U/L (13-40) H Total Bilirubin 1.2 mg/dL (0.2-1.0) H Urinalysis Test 02/14/25 11:30 02/19/25 13:50 Urine Protein/Creatinine Ratio 0.26 Urine Total Protein < 6.0 mg/dL (1-14) Urine Osmolality 587 mOsm/kg Urine Creatinine 76.95 mg/dL (30.0-125.0) Urine Sodium 79 mmol/L (40-220) Microbiology Microbiology Date/Time Source Procedure Growth Status 03/01/25 17:30 Pleural Fluid Gram Stain - Final Resulted 03/01/25 17:30 Pleural Fluid Body Fluid Culture - Preliminary No growth Resulted 02/13/25 08:15 Nose MRSA Screen - Final Complete 02/11/25 19:38 Blood Blood Culture - Final NO GROWTH AFTER 5 DAYS OF INCUBATION. Complete Labs and/or images reviewed: Labs reviewed by me, Image(s) reviewed by me Assessment/Plan Assessment/Plan 64 M with HTN, HFrEF 20%, DM, ascites, meth use admitted for SOB, later was found in respiratory distress, intubated and had PEA arrest, ROSC in 4 minutes. 02/14 s/p thora, 2 L out. switched to lasix drip. start TF. POCUS done, minimal tapable pocket in abdomen. wound culture with prelim growth. wound care 02/15 wound culture back, changed abx to vanc and layton, starting oral meds for weaning, patient previously agitated, to decrease prevent self extubation. lasix drip switched to 60 BID. SAT SBT tomorrow. 02/16 hold diuresis today, POCUS with improving IVC, off sedation, not waking up still. 02/17 adding diamox, metabolic alkalosis, decrease RR, holding methadone and klonazepam, off sedation, opening eyes to name, not following command, c/w SAT SBT. 02/18 off sedation and calm 02/19 continues to remain intubated and off sedation 02/20 agitated, restarting methadone and clonazepam. will d/w fam regarding trach if he continues to be difficult to sedate. positive balance, readding lasix, discontinueing fluid. 02/21 POCUS done, IVC >2cm with no excursion, severely reduced EF. net positive the past 2 days, doubling lasix dose. back on pressor. follows commands once. once stable will get CT angio to see if he will need intervention. podiatry consult 02/22 b/l UE superficial thrombus, no deep vein thrombus, dc tlc, continue to titrate off pressor, c/w diuresis. daily SAT SBT. i called family but went to . plan for extubation vs trach, possibly without full mental status if doing well during cpap 02/23 seen today, still on sedation. on and off having bradycardia and NSVT. cardio reconsulted today. starting dobutamine, c/w lasix acetazolamide 02/24 adequate diuresis, stion dobu and levo, no increase ectopy. no mental status. called fam member but went to again. consult for trach and peg. 02/27 called franco, he does not want to make medical decision and deferred to anali sister. called anali, consent signed for trach peg. 02/28 surg consult for trach. pt with minimal response, unclear if following commands. will do cpap for exercise but likely proceed with trach and LTACH transfer. 03/01 pending trach today.later patient mental status improved, cpap for 2 hours. 03/02 extubated to cool mist. pending bedside swallow. still on dobu and levo 03/03 add midodrine, replete lytes. comfortable. bedside swallow, start diet, dc methadone, podiatry consult. c/w dobu fixed dose, off pressors, dg to tele w sitter called ex nannette, per ex , both sons will make medical decision together, given contact number of son through his boss. Norma Ugarte [phone] and son is Franco. Explained to Franco (son) regarding trach and peg and need of possible ppm and angiogram. he understands, will discuss with family and get back with a decision tomorrow. Per franco stanley to be reached at [phone] and [phone] (gf). franco does not want to make medical decision and defer to sister anali. d/w anali, agrees for trach peg and LTACH placement. 03/04, likely homeless patient, presented initially with abdominal pain has started having bradycardia had coded on the floor. While in ICU patient has been getting diuresis on dobutamine drip which is being also required to maintain pressure currently. Patient was extubated 03/02, since then has been unable to swallow repeated feels of swallow eval bedside by RN, we will order official JAVASCRIPT UI DEVELOPER eval, we will give Solu-Medrol 20 and further humidified nebulizer treatments and we will reassess RN bedside swallow. Start Clinimix. If patient continues to fail we will have to put NG tube to give psych meds. Currently patient is nonverbal but does follow some commands. Patient is full code, poor prognosis would recommend DNR DNI. Otherwise continue primary team's management plan. 03/05: Continue Clinimix, blood pressure low on 60 Lasix we will decrease Lasix to 40 IV daily. If blood pressure stays low we will try IV bolus 250 LR trial. Keep dobutamine at 2.5 fixed rate. Aspiration precautions. Official JAVASCRIPT UI DEVELOPER swallow eval. We will do another bedside RN swallow test. Making good urine output. Heart rate hanging in 70s to 80s. Patient likely has COPD hypercarbia we will decrease oxygen to goal 88-92%. We will not do trial of dobutamine weaning as patient is blood pressure low in map 60s. Patient states nonverbal. physical exam follows command obese cannot appreciate JVD mechanical breath soundsl S1 S2 systolic murmur abdomen distended b/l LE edema w/ chronic venous wounds R foot with multiple gangrene dry and wet drips levophed dobu labs reviewed acetinobacter, pseudomonas, e faecalis, MRSA in wound cultrue imaging cxr RLL opacity echo LVEF 20%, DCM, MR assessment and plan s/p PEA arrest ROSC 4 mins cardiogenic shock acute on chronic hypoxic RF acute on chronic systolic HF acute metabolic encephalopathy small R PLEF COPD with exacerbation PNA gp vs gn HFrEF 20% DCM transaminitis cirrhosis? ascites? ALEXIS likely VMN lactic acidosis meth use leukocytosis type 2 [place] demand ischemia DM? chronic venous stasis wound with multiple bact L testicular mass? foot gangrene b/l UE superficial thrombosis high degree block NSVT ICU extubated titrate levophed to maintain MAP >60 c/w diuresis close to euvolemic titrate down methadone, klonopin, c/w seroquel c/w vanc , zosyn switched to layton avoid fever VAP bundle bronchodilators hold GDMT until off pressors send A1C, lipid, tsh wound care podiatry consult CTA runoff once stable dobutamine to assist diuresis and inotropy, will dc if NSVT increased keep K 4 Ph 3 Mg 2 Diet hold until passed bedside swallow DVT PPX lovenox GI PPX protonix Lines picc jaffe Full code condition critical prognosis poor Plan discussed with: Other My Orders Orders - SUJEY BORJA MD Procedure Category Date Status Time Place Ng ORDERS 03/04/25 Transmitted 12:12 Chest Portable XY 03/04/25 Resulted 13:08 Chest Portable XY 03/04/25 Resulted 13:59 Date of Service: Mar 05, 2025 Billing Provider: SUJEY BORJA MD Common Visit Codes: 81068-[id number] CARE 30-74 MIN SUJEY BORJA MD Mar 05, 2025 10:42
[2025-03-05] MEDS ORDERED: CLINIMIX PER PHARMACY 0 ML IV SCH (13:00)
[2025-03-05] MEDS ORDERED: DEXTROSE (50%) 50ML SYRG IV SCH (14:00)
[2025-03-05 14:38] LABS: Magnesium 2.0 mg/dL (1.6-2.6); Triglycerides 79.0 mg/dL (< 150)
[2025-03-05] MEDS: ACCU-CHEK COMFORT CURVE STRIP VI SCH (18:00)
[2025-03-05] MEDS: InsuLIN REG 1unit/0.01ml Soln (100units/ml) SC SCH (18:00)
[2025-03-05] MEDS: AMINO ACID INFUSION IN D10W 1,000 ML IV SCH (20:26)
--- NOTE | 2025-03-05 23:21 | DVHPN2 ---
Progress Note - Dictate Date Seen: Mar 05, 2025 Has the PT tested + for MRSA If YES, has PT been informed?: No Medical Necessity Reason Pt with a Central, PICC or Fol: Yes The following are medically ne: Central Line, Aguilar Catheter Subjective Patient was seen and evaluated in follow up in the ICU. No overnight events. Patient was transitioned to room air. Patient is making good urine output. CL 96, CO2 33, AST 56. vital signs Vital Sign Date Time Temp Pulse Resp B/P (MAP) Pulse Ox O2 Delivery O2 Flow Rate FiO2 03/05/25 12:00 18 87 Room Air* 0 N/A Nasal Cannula* 03/05/25 10:00 85 03/05/25 08:45 102/62 (75) 03/05/25 08:00 97.5 97.5 Total Intake and Output 03/04/25 03/04/25 03/05/25 15:00 23:00 07:00 Intake Total 295.52 ml 270.52 ml 235.52 ml Output Total 1150 ml 950 ml Balance 295.52 ml -879.48 ml -714.48 ml medications Current Medications Medications Dose Ordered Sig/Geraldo Route Start Time Stop Time Status Last Admin Dose Admin Diagnostic Test (Pha) 1 strip ACHS 02/12/25 07:00 03/05/25 11:18 1 STRIP Insulin Human Regular ACHS SC 02/12/25 07:00 02/26/25 17:22 2 UNITS Dextrose 50 ml UD PRN IV 02/11/25 22:15 03/03/25 05:46 50 ML Acetaminophen 650 mg Q6HP PRN PO 02/11/25 22:15 Aspirin 81 mg DAILY PO 02/12/25 10:00 03/05/25 10:51 81 MG Nicotine 1 patch DAILY TD 02/13/25 10:00 03/05/25 10:51 1 PATCH Sennosides 8.6 mg HS PO 02/14/25 22:00 03/04/25 21:43 8.6 MG Quetiapine Fumarate 25 mg BID PO 02/15/25 10:00 03/05/25 10:50 25 MG Pantoprazole Sodium 40 mg DAILY IV 02/17/25 10:00 03/05/25 10:50 40 MG Lactulose 30 ml BID PO 02/17/25 22:00 03/05/25 10:51 30 ML Sodium Chloride 10 ml QSHIFT@10,22 IV 02/21/25 22:00 03/05/25 10:50 10 ML Albuterol 2.5 mg Q6HR NEB 02/24/25 18:00 03/05/25 07:19 2.5 MG Ipratropium [place] 0.5 mg Q6HR NEB 02/24/25 18:00 03/05/25 07:19 0.5 MG Ondansetron HCl 4 mg Q6HPRN PRN IV 02/26/25 22:30 Diphenhydramine HCl 25 mg Q6HR GT 02/27/25 12:00 03/05/25 11:49 25 MG Clonazepam 0.5 mg Q12HR GT 02/27/25 22:00 03/05/25 10:00 0.5 MG Dobutamine HCl/ Dextrose 250 ml @ 0 mls/hr Q0M IV 02/27/25 15:15 03/05/25 03:35 11.94 MLS/HR Norepinephrine Bitartrate 250 ml @ 1.875 mls/ hr Q24H IV 02/28/25 15:45 03/01/25 17:39 5.625 MLS/HR Furosemide 60 mg BIDD IV 03/02/25 18:00 03/05/25 06:17 60 MG Midodrine 10 mg TID@0600,1200,1800 PO 03/03/25 12:00 03/05/25 11:42 10 MG objective GENERAL: Ill appearing, Awake. EYES: PERRL, EOMI. Anicteric. HENT: Moist mucous membranes. LUNGS: Decreased breath sounds. CARDIOVASCULAR: Regular rate and rhythm. ABDOMEN: Soft, nontender and nondistended. EXTREMITIES: No edema. SKIN: Warm, dry. laboratory and microbiology Laboratory Tests 03/05/25 03:29 Test 03/05/25 03:29 Range/Units Serum Glucose 91 74-106 mg/dL Problem List S/P PEA arrest. Cardiogenic shock. Acute hypoxic respiratory failure Systolic Heart failure with reduced ejection fraction. NSTEMI. Hypertension. Hyperkalemia. Small R pleural effusion. COPD with exacerbation. PNA. DCM. Transaminitis. ALEXIS. Lactic acidosis. Meth use. Leukocytosis. Type 2 ID demand ischemia. Chronic venous stasis. Foot gangrene. L/l UE superficial thrombosis. High degree block. NSVT. Assessment/Plan Continued all current supportive medical care. Aspirin. Diuretics with Lasix. Vasopressors for hemodynamic support. GI prophylactics. Midodrine. Nebulized breathing treatments. Additional plan as per the hospital course. Critical care time of 45 minutes provided to include time spent evaluation of patient at bedside, when appropriate patient/family education for diagnosis, treatment plan, review of pertinent medical information and discussion of care with specialty providers and PCP. Dietary Evaluation Review Comments: CCHO-60 Cardiac diet, texture as tolearated when medically feasible nicotine cessation counseling Follow up with updated lab values Expected Outcomes/Goals: Improved nurition related lab values, free from nicotine Plan discussed with: Patient SHARMILA BENDER MD Mar 05, 2025 13:15
--- NOTE | 2025-03-05 23:36 | DVHPN2 ---
Subjective DOS: 03/05/2025 Patient seen and examined at bedside. Remains on supplemental oxygen Overnight events reviewed.. Reviewed: Care Plan, H&P, Labs, Medications, Previous Orders, Radiology Changes from previous H/P or p: No Changes General: Per HPI Eyes: No Pain, No Vision change, No Conjunctivae inflammation, No Eyelid inflammation, No Other, No Redness ENT: No Ear pain, No Ear discharge, No Nose pain, No Nose discharge, No Nose congestion, No Mouth pain, No Mouth swelling, No Throat pain, No Throat swelling, No Other Cardiovascular: No Chest Pain, No Palpitations, No Orthopnea, No Paroxysmal Noc. Dyspnea, No Edema, No Lt Headedness, No Other Respiratory: No Cough, No Dry; Shortness of breath, SOB with excertion; No Wheezing, No Hemoptysis, No Pleuritic Pain, No Sputum; Other (SOB at rest) Gastrointestinal: No Nausea, No Vomiting; Abdominal Pain; No Diarrhea, No Constipation, No Melena, No Hematochezia; Other (Abdominal distention) Genitourinary: No Dysuria, No Frequency, No Incontinence, No Hematuria, No Retention, No Other Musculoskeletal: No other, No neck pain, No shoulder pain, No arm pain, No back pain, No hand pain, No leg pain, No foot pain Skin: No Rash, No Lesions, No Jaundice, No Bruising; Other (Lower extremity open wounds) Objective Vitals Vital Signs Date Time Temp Pulse Resp B/P (MAP) Pulse Ox O2 Delivery O2 Flow Rate FiO2 03/05/25 22:00 73 03/05/25 22:00 18 98 Room Air* 0 N/A Nasal Cannula* 03/05/25 21:49 95/59 03/05/25 20:00 97.0 97.0 Intake/Output Intake and Output 03/05/25 07:00 Intake Total 801.56 ml Output Total 2100 ml Balance -1298.44 ml Intake Oral 175 ml IV Total 626.56 ml Output Urine Total 2100 ml Exam Gen.: Patient lying in bed in no apparent distress. On supplemental oxygen. Head: Normocephalic, atraumatic. Eyes: EOMI/PERRLA. Ears: Normal hearing. Normal anatomy. Neck/trachea: Trachea midline, supple. Nose: Normal external anatomy. Mouth: Moist mucous membranes. Chest: Decreased air entry bilaterally. No wheezing or rhonchi. Cardiovascular: Positive S1, positive S2. Regular rate and rhythm. Abdomen: Positive bowel sounds in all 4 quadrants. Soft, non-tender, non- distended. : Deferred. Rectal: Deferred. Skin: Warm, dry. Intact. Extremities: 2+ radial pulses bilaterally. No lower extremity edema. Neuro: Awake, ill appearing. No gross motor or sensory deficits. Cranial nerves II through XII intact. Gait not assessed. HEENT: Atraumatic, PERRLA, EOMI, Mucous membr. moist/pink Neck: Supple Lungs: Clear to auscultation, Normal air movement Cardiovascular: Regular rate, Normal S1, Normal S2, No murmurs, Gallops, Rubs Abdomen: Normal bowel sounds, Soft, No tenderness Medications Current Medications Medications Dose Ordered Sig/Geraldo Route Start Time Stop Time Status Last Admin Dose Admin Acetaminophen 650 mg Q6HP PRN PO 02/11/25 22:15 Aspirin 81 mg DAILY PO 02/12/25 10:00 03/05/25 10:51 81 MG Nicotine 1 patch DAILY TD 02/13/25 10:00 03/05/25 10:51 1 PATCH Sennosides 8.6 mg HS PO 02/14/25 22:00 03/05/25 21:44 8.6 MG Quetiapine Fumarate 25 mg BID PO 02/15/25 10:00 03/05/25 21:44 25 MG Pantoprazole Sodium 40 mg DAILY IV 02/17/25 10:00 03/05/25 10:50 40 MG Lactulose 30 ml BID PO 02/17/25 22:00 03/05/25 21:44 30 ML Sodium Chloride 10 ml QSHIFT@10,22 IV 02/21/25 22:00 03/05/25 21:44 10 ML Albuterol 2.5 mg Q6HR NEB 02/24/25 18:00 03/05/25 18:28 2.5 MG Ipratropium [place] 0.5 mg Q6HR NEB 02/24/25 18:00 03/05/25 18:28 0.5 MG Ondansetron HCl 4 mg Q6HPRN PRN IV 02/26/25 22:30 Clonazepam 0.5 mg Q12HR GT 02/27/25 22:00 03/05/25 21:44 0.5 MG Dobutamine HCl/ Dextrose 250 ml @ 0 mls/hr Q0M IV 02/27/25 15:15 03/05/25 21:49 11.94 MLS/HR Norepinephrine Bitartrate 250 ml @ 1.875 mls/ hr Q24H IV 02/28/25 15:45 03/01/25 17:39 5.625 MLS/HR Midodrine 10 mg TID@0600,1200,1800 PO 03/03/25 12:00 03/05/25 18:00 10 MG Amino Acids 0 ml @ 0 mls/hr PER PHARMACY IV 03/05/25 13:00 Diagnostic Test (Pha) 1 strip Q6HR 03/05/25 18:00 03/05/25 23:30 1 STRIP Insulin Human Regular FOLLOW SLIDING SCALE Q6HR SC 03/05/25 18:00 Dextrose 50 ml UD IV 03/05/25 14:00 Amino Acids/ Electrolytes/ Dextrose 1,000 ml @ 41 mls/hr DAILY@2200 IV 03/05/25 22:00 03/05/25 20:26 41 MLS/HR Laboratory Results Laboratory Tests 03/05/25 03:29 Chemistry Test 03/05/25 03:29 Albumin 3.3 g/dL (3.2-4.8) Calcium Level 9.1 mg/dL (8.7-10.4) Magnesium Level 2.0 mg/dL (1.6-2.6) Phosphorus Level 3.3 mg/dL (2.4-5.1) Total Protein 6.8 g/dL (5.7-8.2) Lipid panel Test 03/05/25 03:29 Triglycerides Level 79 mg/dL (< 150) LFT Test 03/05/25 03:29 Alanine Aminotransferase (ALT) 28 U/L (7-40) Alkaline Phosphatase 119 U/L (46-116) H Aspartate Amino Transferase (AST) 56 U/L (13-40) H Total Bilirubin 1.2 mg/dL (0.2-1.0) H Urinalysis Test 02/14/25 11:30 02/19/25 13:50 Urine Protein/Creatinine Ratio 0.26 Urine Total Protein < 6.0 mg/dL (1-14) Urine Osmolality 587 mOsm/kg Urine Creatinine 76.95 mg/dL (30.0-125.0) Urine Sodium 79 mmol/L (40-220) Microbiology Microbiology Date/Time Source Procedure Growth Status 03/01/25 17:30 Pleural Fluid Gram Stain - Final Resulted 03/01/25 17:30 Pleural Fluid Body Fluid Culture - Preliminary No growth Resulted 02/13/25 08:15 Nose MRSA Screen - Final Complete 02/11/25 19:38 Blood Blood Culture - Final NO GROWTH AFTER 5 DAYS OF INCUBATION. Complete Assessment/Plan Assessment/Plan Impression: Acute hypoxemic respiratory failure Pleural effusion Atelectasis S/p cardiac arrest Cardiomyopathy Congestive heart failure Obesity Events: Currently transitioned off supplemental oxygen Breathing on room air No distress. On 1:1 sitter for safety. NGT in place. Plan for Speech and Swallow eval Patient failed prior swallow evaluation. Patient remains on his fixed dose of Dobutamine 2.5 mcg/min for inotropic support Off pressors - hemodynamically stable. Continue antibiotics Continue bronchodilators Continue steroids Wound care. Midodrine for blood pressure support Follow up Podiatry recs Nephrology recs appreciated Diurese to maintain euvolemia Monitor renal function Monitor electrolytes. Supplement as necessary.. Tube feeds for nutritional support Patient remains NPO Failed swallow eval Head of bed elevation Aspiration precautions. S/p right thoracentesis on 03/01/25 - 650 mL fluid removed. S/p PICC line placement - PICC line is deemed medically necessary for administration of pressors. Abdomen x-ray shows no e/o bowel obstruction. Labs and imaging reviewed. Rest of plan as noted below. Plan: S/p extubation On supplemental oxygen Titrate to keep O2 sats above 90%. Patient is s/p right thoracentesis. Continue bronchodilators. Continue antibiotics. Follow up cultures. Monitor WBC count Pressors as necessary for hemodynamic support Titrate to keep mean arterial pressure greater than 65 mmHg. Patient with on and off bradycardia and NSVT On Dobutamine 2.5 mcg/min for inotropic support Plan for pacemaker placement. Echo report reviewed; EF approximately 20% Cardiology recs appreciated. On Protonix Monitor hemoglobin Tube feeds for nutritional support Follow up GI recs Diurese with Lasix Monitor renal function Monitor electrolytes. Supplement as necessary. Monitor ins and outs. Maintain euvolemia. GI prophylaxis -Protonix. DVT prophylaxis - Lovenox. Prognosis: Poor given patient's multiple co-morbidities. Condition: Critical Rest of plan per hospitalist and other consultants. A total of 35 minutes of critical care time was spent reviewing the patient record, examining the patient, making a diagnostic and therapeutic plan, discussing this plan with the medical personnel, following up on diagnostic studies and following the patient for clinical stability excluding any and all procedures. At least 50% of this time was spent in direct, [id number] contact. Thank you, Dr. Blas, for allowing me to participate in this patient's care. Further recommendations will depend on the patient's clinical course. Please do not hesitate to contact me if you have any questions or concerns. This medical document was created using an electronic medical record system with [employer] dictation system. Although these documentations are being carefully reviewed, there may still be some phonetic and typographical changes. The errors are purely typographical, due to imperfection on the software program, and do not reflect any compromise in the patient's medical care. Plan discussed with: Other (LEIGHTON Saavedra) Visit Coding Pulmonary Billing Provider: DOLORES VELAZQUEZ MD Date of Service if different f: Mar 05, 2025 Common Visit Codes: [id number] INP/OBS CARE(HIGH), 25579-[id number] CARE 30-74 MIN DOLORES VELAZQUEZ MD Mar 05, 2025 23:36
[2025-03-06] VITALS (92 sets, daily range): BP systolic 81–117; BP diastolic 46–74; PULSE 67–103; RESP 11–27; TEMP 97.4–98.7; O2SAT 90–100
[2025-03-06 03:27] LABS: Hematocrit 38.3 % (41.0-53.0); Hemoglobin 12.8 g/dL (13.5-17.5); Mean Corpuscular Hemoglobin 30.0 pg (28.0-32.0); Mean Corpuscular Volume 89.7 fL (80.0-100.0); Nucleated Red Blood Cells % 0.0 %
[2025-03-06 03:44] LABS: Alanine Aminotransferase 23 U/L (7-40); Anion Gap 9 (5-15); Calcium 9.1 mg/dL (8.7-10.4); Glucose 93 mg/dL (74-106); Magnesium 1.8 mg/dL (1.6-2.6); Sodium 137 mmol/L (136-145); Total Protein 6.5 g/dL (5.7-8.2)
[2025-03-06 03:47] LABS: Albumin 3.2 g/dL (3.2-4.8); Alkaline Phosphatase 116 U/L (46-116); Bilirubin, Total 1.2 mg/dL (0.2-1.0); Carbon Dioxide 33 mmol/L (20-31); Chloride 95 mmol/L (98-107); Potassium 3.1 mmol/L (3.5-5.1)
[2025-03-06 03:53] LABS: BUN/Creatinine Ratio 17.8 (10.0-20.0); Blood Urea Nitrogen 13 mg/dL (9-23)
[2025-03-06] MEDS: POTASSIUM CHL 20MEQ/100ML 100 ML IV ONE ×2 (04:49→11:50)
[2025-03-06] MEDS ORDERED: FUROSEMIDE 40 MG/4 ML VIAL IV SCH (10:00)
--- NOTE | 2025-03-06 12:48 | DVHCONRES ---
Date Seen: Mar 06, 2025 Reason for Consultation Bilateral foot gangrene History of Present Illness The patient is a 64-year-old male with past medical history of CHF, hypertension, and diabetes mellitus who presented to [facility] ED with complaint of abdominal distention. Patient reports that he has been experiencing abdominal distention associated with shortness of breaths, bipedal edema, orthopnea, cyanosis, generalized weakness, getting worse that prompted this visit. Patient was seen at [facility] for similar symptoms however abdominal paracentesis was not done. Patient was seen and evaluated in the ED, laboratory data shows WBC 6.9, platelets 197, sodium 137, potassium 4.6, BUN 37, creatinine 1.39, GFR 57, glucose 102, calcium 8.2, BNP 1809.69, lactic acid 2.1, total bilirubin 1.7, AST 84, ALT 193, alkaline phos 152, troponin 43, blood pressure 106/81, heart rate 74, temperature 97.9 F, O2 saturation 94% on oxygen. Chest x-ray revealing pneumonia although can not entirely exclude congestive failure, no acute cardiopulmonary disease. Patient was started on IV Lasix, please see medication orders section in the computer. On my assessment, patient denied chest pain, no headache, dizziness, diaphoresis, currently on oxygen, no diarrhea, nausea, vomiting, fever, no chills. Patient was admitted for further evaluation and medical management. Past Medical History See H&P Past Surgical History See H&P Family History: Patient reports no known family medical history. Allergies: Coded Allergies: NO KNOWN ALLERGIES (Unverified , 02/11/25) Current Medications Current Medications Medications (Trade) Dose Ordered Sig/Geraldo Route PRN Reason Start Time Stop Time Status Last Admin Furosemide (Lasix Injection) 40 mg DAILY IV 03/06/25 10:00 03/05/25 16:41 DC Amino Acids 0 ml @ 0 mls/hr PER PHARMACY IV 03/05/25 13:00 Diagnostic Test (Pha) (Accu-Chek Comfort Curve T) 1 strip Q6HR 03/05/25 18:00 03/06/25 11:48 Insulin Human Regular (InsuLIN R) FOLLOW SLIDING SCALE Q6HR SC 03/05/25 18:00 Dextrose 50 ml UD IV 03/05/25 14:00 Amino Acids/ Electrolytes/ Dextrose 1,000 ml @ 41 mls/hr DAILY@2200 IV 03/05/25 22:00 03/05/25 20:26 Vital Signs Vital Signs Date Time Temp Pulse Resp B/P (MAP) Pulse Ox O2 Delivery O2 Flow Rate FiO2 03/06/25 12:00 19 99 Room Air* 0 N/A Nasal Cannula* 03/06/25 12:00 86 03/06/25 12:00 98.6 86/49 (61) 98.6 Physical Exam Dermatological: Skin is dry with mild erythema and some maceration around the wound site No gross deformities noted Mild non-pitting edema present bilaterally Multiple dry eschars on bilateral digits Vascular: Dorsalis pedis and posterior tibial pulses are 1+ bilaterally Capillary refill is under 2 seconds Skin temperature is warm bilaterally Neurologic: Protective sensation is absent on the plantar forefoot bilaterally Monofilament testing reveals decreased sensation in multiple plantar sites Musculoskeletal: Range of motion at the ankle and MTP joints is within normal limits. Strength is 5/5 in all tested muscle groups. Gait is antalgic due to offloading of the affected limb. Labs/Diagnostic Data Labs Test 03/06/25 11:30 03/06/25 02:36 03/05/25 03:29 03/02/25 13:22 Range/Units POC Glucose 109 H 70-106 mg/dl White Blood Count 5.0 4.4-10.8 10^3/uL Red Blood Count 4.27 L 4.5-5.90 10^6/uL Hemoglobin 12.8 L 13.5-17.5 g/dL Hematocrit 38.3 L 41.0-53.0 % Mean Corpuscular Volume 89.7 80.0-100.0 fL Mean Corpuscular Hemoglobin 30.0 28.0-32.0 pg Mean Corpuscular Hemoglobin Concent 33.5 32.0-36.0 g/dL Red Cell Distribution Width 15.7 H 11.8-14.3 % Platelet Count 203 140-450 10^3/uL Mean Platelet Volume 9.1 6.9-10.8 fL Neutrophils (%) (Auto) 67.6 37.0-80.0 % Lymphocytes (%) (Auto) 20.0 10.0-50.0 % Monocytes (%) (Auto) 9.2 0.0-12.0 % Eosinophils (%) (Auto) 2.0 0.0-7.0 % Basophils (%) (Auto) 1.2 0.0-2.0 % Neutrophils # (Auto) 3.3 1.6-8.6 10 ^3/uL Lymphocytes # (Auto) 1.0 0.4-5.4 10 ^3/uL Monocytes # (Auto) 0.5 0-1.3 10 ^3/uL Eosinophils # (Auto) 0.1 0-0.8 10 ^3/uL Basophils # (Auto) 0.1 0-0.2 10 ^3/uL Nucleated Red Blood Cells 0.0 % Sodium Level 137 136-145 mmol/L Potassium Level 3.1 L 3.5-5.1 mmol/L Chloride Level 95 L 98-107 mmol/L Carbon Dioxide Level 33 H 20-31 mmol/L Anion Gap 9 5-15 Blood Urea Nitrogen 13 9-23 mg/dL Creatinine 0.73 0.700-1.30 mg/dL Glomerular Filtration Rate Calc 103 >90 mL/min BUN/Creatinine Ratio 17.8 10.0-20.0 Serum Glucose 93 74-106 mg/dL Calcium Level 9.1 8.7-10.4 mg/dL Phosphorus Level 2.7 2.4-5.1 mg/dL Magnesium Level 1.8 1.6-2.6 mg/dL Total Bilirubin 1.2 H 0.2-1.0 mg/dL Aspartate Amino Transferase (AST) 45 H 13-40 U/L Alanine Aminotransferase (ALT) 23 7-40 U/L Alkaline Phosphatase 116 46-116 U/L Total Protein 6.5 5.7-8.2 g/dL Albumin 3.2 3.2-4.8 g/dL Triglycerides Level 79 < 150 mg/dL Blood Gas Specimen Type Arterial Blood Gas Sample Site Right brachial Blood Gas Patient Temperature 37.0 Arterial Blood Date Drawn [id number] Arterial Blood pH 7.462 H 7.350-7.450 Arterial Blood Partial Pressure CO2 54.6 H 35.0-48.0 mmHg Arterial Blood Partial Pressure O2 75.7 L 83.0-108.0 mmHg Arterial Blood HCO3 38.1 H 21.0-28.0 mmol/L Arterial Blood Oxygen Saturation 94.6 94.0-98.0 % Arterial Blood Base Excess 12.1 H -2.0-3.0 mmol/L Arterial Blood Oxyhemoglobin 93.3 L 94.0-98.0 % Arterial Blood Carboxyhemoglobin 1.2 0.5-1.5 % Arterial Blood Methemoglobin 0.2 0.0-1.5 % Arterial Blood Deoxyhemoglobin 5.3 H 0.0-5.0 % Charles Test N/a Blood Gas Total Hemoglobin 14.20 13.5-17.5 g/dL Blood Gas Liter Flow 2.00 Blood Gas Modality Nasal cannula FiO2 % 28.0 Test 03/02/25 07:20 03/01/25 17:30 03/01/25 12:36 02/28/25 11:32 Range/Units Blood Gas Set Respiration Rate 16.0 Blood Gas Tidal Volume 500.0 Blood Gas PEEP or CPAP 6.0 Body Fluid Source Pleural fluid Body Fluid pH 8.0 Body Fluid WBC (Manual) 220 H 0-200 CUMM Body Fluid RBC (Manual) 201 0-2000 CUMM Body Fluid Mononuclear Cells 80 % Body Fluid Polymorphonuclear Cells 20 0-25 % Body Fluid Glucose 111 . mg/dL Body Fluid Total Protein 3.2 . g/dL Body Fluid Lactate Dehydrogenase 172 . IU/L Blood Gas Spontaneous Rate 12 Blood Gas Spontaneous Tidal Volume 572 Blood Gas Pressure Support 8 Prothrombin Time 12.2 H 9.3-11.8 sec Prothrombin Time INR 1.17 H 0.9-1.15 Activated Partial Thromboplast Time 37.9 H 24.5-34.5 SEC Test 02/28/25 04:42 02/25/25 07:20 02/23/25 08:52 02/23/25 03:05 Range/Units Bl Gas Inspiratory/Expiratory Ratio 1:3.5 Specimen Drawn By Crow toscano rt Blood Gas Critical Value Read Back yes Blood Gas Notified Whom brynn collins md Blood Gas Notified Time [id number] Blood Gas Notified By carey madrigal rrt Vancomycin Level Trough 18.1 H 5-10 ug/mL Ammonia 37 H 11-32 umol/L Test 02/19/25 13:50 02/17/25 03:28 02/16/25 11:35 02/14/25 16:52 Range/Units Urine Osmolality 587 mOsm/kg Urine Creatinine 76.95 30.0-125.0 mg/dL Urine Sodium 79 40-220 mmol/L Random Vancomycin Level 15.0 H 5-10 ug/mL Direct Bilirubin 1.1 H <0.3 mg/dL Treponema pallidum Antibody Non-reactive Negative HIV (1&2) Antibody Negative Negative Test 02/14/25 11:30 02/14/25 03:31 02/13/25 18:35 02/13/25 16:15 Range/Units Urine Protein/Creatinine Ratio 0.26 Urine Total Protein < 6.0 1-14 mg/dL Chlamydia trachomatis (JASBIR) Negative Negative Neisseria gonorrhoeae (JASBIR) Negative Negative Hemoglobin A1c 5.9 H <5.7 % A1C B-Type Natriuretic Peptide 1266.88 0-100 pg/mL Cholesterol Level 119 < 200 mg/dL LDL Cholesterol 80 < 100 mg/dL HDL Cholesterol 25 L 40-59 mg/dL Thyroid Stimulating Hormone (TSH) 0.62 0.55-4.78 uIU/mL Urine Opiates Screen Neg NEGATIVE Urine Fentanyl Screen Pos NEGATIVE Urine Barbiturates Screen Neg NEGATIVE Urine Phencyclidine Screen Neg NEGATIVE Urine Amphetamines Screen Pos NEGATIVE Urine Benzodiazepines Screen Pos NEGATIVE Urine Cocaine Screen Neg NEGATIVE Urine Cannabinoids Screen Neg NEGATIVE Troponin I High Sensitivity 163 *H </=54 ng/L Test 02/13/25 12:59 02/13/25 06:15 02/11/25 18:54 Range/Units Lactic Acid Level 1.6 0.4-2.0 mmol/L Ferritin 87.6 22-322 ng/mL Hepatitis A Antibody Total Positive H Negative Hepatitis B Surface Antigen Negative Negative Hepatitis B Surface Antibody Negative Negative Hepatitis B Core Total Antibody Negative Negative Hepatitis C Antibody Negative Negative Venous Blood pH 7.355 7.320-7.430 Venous Blood pCO2 at Patient Temp 47.3 38.0-54.0 mmHg Venous Blood pO2 at Patient Temp < 36.5 23.0-48.0 mmHg Venous Blood HCO3 25.8 22.0-29.0 mmol/L Venous Blood Base Excess -0.2 -2.0-3.0 mmol/L Microbiology Date/Time Source Procedure Growth Status 03/01/25 17:30 Pleural Fluid Gram Stain - Final Complete 03/01/25 17:30 Pleural Fluid Body Fluid Culture - Final Complete 02/13/25 08:15 Nose MRSA Screen - Final Complete 02/11/25 19:38 Blood Blood Culture - Final NO GROWTH AFTER 5 DAYS OF INCUBATION. Complete Problems(with codes): (1) Congestive heart failure (2) Pneumonitis (3) COPD exacerbation (4) Respiratory failure with hypoxia (5) Acute renal injury (6) Elevated liver enzymes (7) COPD with acute exacerbation (8) Acute respiratory failure with hypoxia (9) Generalized weakness (10) Lactic acidosis (11) Anasarca (12) Decompensated heart failure (13) Liver disease, chronic (14) Cyst of epididymis determined by ultrasound Plan/Recommendation ASSESSMENT: Patient is a 64 year old seen on the floor for dry gangrene PLAN: - The patients chart was reviewed, clinical findings were discussed with the patient, the etiologies of the conditions were discussed in detail, and a treatment plan was agreed to at this time, with both oral and written instructions provided. - reviewed advanced imaging - with history of PD would hold off on any sort of procedure - keep dry with Betadine - a full turns into wet gangrene would intervene but at this point just to watch and wait - continue using the offloading heel pads All questions were answered and concerns addressed to the patient's satisfaction. The patient was given the phone number to the clinic and was told how to make contact with the clinic should any concerns or questions arise. Patient understands that if any questions or concerns arise prior to the next appointment, we should be contacted immediately. FOLLOW-UP: Continue to follow while inpatient Plan discussed with: Patient Visit Coding Podiatry Date of Service if different f: Mar 06, 2025 Billing Provider: RENEE VAZQUEZ DPM Podiatry Common Visit Codes: CONSULT ONLY Podiatry Consult Codes: 06676-IR/OBS [id number] NEW/EST HI 80 RENEE VAZQUEZ DPM Mar 06, 2025 12:48
--- NOTE | 2025-03-06 15:10 | DVHPN2 ---
Assessment/Plan Assessment/Plan ICU note 64 M with HTN, HFrEF 20%, DM, ascites, meth use admitted for SOB, later was found in respiratory distress, intubated and had PEA arrest, ROSC in 4 minutes. 02/14 s/p thora, 2 L out. switched to lasix drip. start TF. POCUS done, minimal tapable pocket in abdomen. wound culture with prelim growth. wound care 02/15 wound culture back, changed abx to vanc and layton, starting oral meds for weaning, patient previously agitated, to decrease prevent self extubation. lasix drip switched to 60 BID. SAT SBT tomorrow. 02/16 hold diuresis today, POCUS with improving IVC, off sedation, not waking up still. 02/17 adding diamox, metabolic alkalosis, decrease RR, holding methadone and klonazepam, off sedation, opening eyes to name, not following command, c/w SAT SBT. 02/18 off sedation and calm 02/19 continues to remain intubated and off sedation 02/20 agitated, restarting methadone and clonazepam. will d/w fam regarding trach if he continues to be difficult to sedate. positive balance, readding lasix, discontinueing fluid. 02/21 POCUS done, IVC >2cm with no excursion, severely reduced EF. net positive the past 2 days, doubling lasix dose. back on pressor. follows commands once. once stable will get CT angio to see if he will need intervention. podiatry consult 02/22 b/l UE superficial thrombus, no deep vein thrombus, dc tlc, continue to titrate off pressor, c/w diuresis. daily SAT SBT. i called family but went to . plan for extubation vs trach, possibly without full mental status if doing well during cpap 02/23 seen today, still on sedation. on and off having bradycardia and NSVT. cardio reconsulted today. starting dobutamine, c/w lasix acetazolamide 02/24 adequate diuresis, stion dobu and levo, no increase ectopy. no mental status. called fam member but went to again. consult for trach and peg. 02/27 called franco, he does not want to make medical decision and deferred to anali sister. called anali, consent signed for trach peg. 02/28 surg consult for trach. pt with minimal response, unclear if following commands. will do cpap for exercise but likely proceed with trach and LTACH transfer. 03/01 pending trach today.later patient mental status improved, cpap for 2 hours. 03/02 extubated to cool mist. pending bedside swallow. still on dobu and levo 03/03 add midodrine, replete lytes. comfortable. bedside swallow, start diet, dc methadone, podiatry consult. c/w dobu fixed dose, off pressors, dg to tele w sitter 03/04 we will order official TOWER ATTENDANT eval, we will give Solu-Medrol 20 and further humidified nebulizer treatments and we will reassess RN bedside swallow. Start Clinimix. If patient continues to fail we will have to put NG tube to give psych meds. Currently patient is nonverbal but does follow some commands. Patient is full code, poor prognosis would recommend DNR DNI. 03/05 Continue Clinimix, blood pressure low on 60 Lasix we will decrease Lasix to 40 IV daily. If blood pressure stays low we will try IV bolus 250 LR trial. Keep dobutamine at 2.5 fixed rate. Aspiration precautions. Official TOWER ATTENDANT swallow eval. We will do another bedside RN swallow test. Making good urine output. Heart rate hanging in 70s to 80s. Patient likely has COPD hypercarbia we will decrease oxygen to goal 88-92%. We will not do trial of dobutamine weaning as patient is blood pressure low in map 60s. Patient states nonverbal. 03/06 seen today. transfer to telemetry, dc klonopin and and seroquel. start risperdal. swallow eval, keep ngt in interim. seen by podiatry, no intervention called ex nannette, per ex , both sons will make medical decision together, given contact number of son through his boss. Norma Torito [phone] and son is Franco. Explained to Franco (son) regarding trach and peg and need of possible ppm and angiogram. he understands, will discuss with family and get back with a decision tomorrow. Per franco stanley to be reached at [phone] and [phone] (). franco does not want to make medical decision and defer to sister anali. d/w anali, agrees for trach peg and LTACH placement. physical exam follows command obese cannot appreciate JVD mechanical breath soundsl S1 S2 systolic murmur abdomen distended b/l LE edema w/ chronic venous wounds R foot with multiple gangrene dry and wet drips levophed dobu labs reviewed acetinobacter, pseudomonas, e faecalis, MRSA in wound cultrue imaging cxr RLL opacity echo LVEF 20%, DCM, MR assessment and plan s/p PEA arrest ROSC 4 mins cardiogenic shock acute on chronic hypoxic RF acute on chronic systolic HF acute metabolic encephalopathy small R PLEF COPD with exacerbation PNA gp vs gn HFrEF 20% DCM transaminitis cirrhosis? ascites? ALEXIS likely VMN lactic acidosis meth use leukocytosis type 2 MS demand ischemia DM? chronic venous stasis wound with multiple bact L testicular mass? foot gangrene b/l UE superficial thrombosis high degree block NSVT transfer telemetry extubated titrate levophed to maintain MAP >60 c/w diuresis close to euvolemic start risperdal c/w vanc , zosyn switched to layton avoid fever VAP bundle bronchodilators hold GDMT until off pressors send A1C, lipid, tsh wound care daily SAT SBT podiatry consult dc dobutamine keep K 4 Ph 3 Mg 2 Diet hold until passed bedside swallow DVT PPX lovenox GI PPX protonix Lines picc jaffe Full code condition critical prognosis poor Plan discussed with: Other My Orders Orders - SYEDA VILLALOBOS MD Procedure Category Date Status Time Complete Blood Count LAB 03/07/25 Verified 04:00 Basic Metabolic Panel LAB 03/07/25 Verified 04:00 Risperidone Tablet PHA 03/07/25 Transmitted (Risperdal Tablet) 10:00 Risperidone Tablet PHA 03/06/25 Transmitted (Risperdal Tablet) 15:15 Date of Service: Mar 06, 2025 Billing Provider: SYEDA VILLALOBOS MD Common Visit Codes: [id number] INP/OBS CARE(HIGH) SYEDA VILLALOBOS MD Mar 06, 2025 15:10
[2025-03-06] MEDS: risperiDONE 1 MG TAB PO ONE (16:10)
--- NOTE | 2025-03-06 18:13 | DVHPN2 ---
Progress Note - Dictate Date Seen: Mar 06, 2025 Has the PT tested + for MRSA If YES, has PT been informed?: No Medical Necessity Reason Pt with a Central, PICC or Fol: Yes The following are medically ne: Central Line, Aguilar Catheter Subjective Patient is stable extubated Patient is tolerating tube feedings vital signs Vital Sign Date Time Temp Pulse Resp B/P (MAP) Pulse Ox O2 Delivery O2 Flow Rate FiO2 03/06/25 16:30 72 22 88/58 (68) 95 03/06/25 16:00 98.7 98.7 03/06/25 16:00 Room Air* 0 N/A Nasal Cannula* Total Intake and Output 03/05/25 03/05/25 03/06/25 15:00 23:00 07:00 Intake Total 155.52 ml 287.52 ml 603.52 ml Output Total 700 ml 350 ml Balance 155.52 ml -412.48 ml 253.52 ml medications Current Medications Medications Dose Ordered Sig/Geraldo Route Start Time Stop Time Status Last Admin Dose Admin Acetaminophen 650 mg Q6HP PRN PO 02/11/25 22:15 Aspirin 81 mg DAILY PO 02/12/25 10:00 03/06/25 10:32 81 MG Nicotine 1 patch DAILY TD 02/13/25 10:00 03/06/25 10:31 1 PATCH Sennosides 8.6 mg HS PO 02/14/25 22:00 03/05/25 21:44 8.6 MG Pantoprazole Sodium 40 mg DAILY IV 02/17/25 10:00 03/06/25 10:30 40 MG Lactulose 30 ml BID PO 02/17/25 22:00 03/06/25 10:30 30 ML Sodium Chloride 10 ml QSHIFT@ IV 02/21/25 22:00 03/06/25 10:33 10 ML Albuterol 2.5 mg Q6HR NEB 02/24/25 18:00 03/06/25 10:48 2.5 MG Ipratropium [place] 0.5 mg Q6HR NEB 02/24/25 18:00 03/06/25 10:48 0.5 MG Ondansetron HCl 4 mg Q6HPRN PRN IV 02/26/25 22:30 Midodrine 10 mg TID@0600,1200,1800 PO 03/03/25 12:00 03/06/25 11:47 10 MG Amino Acids 0 ml @ 0 mls/hr PER PHARMACY IV 03/05/25 13:00 Diagnostic Test (Pha) 1 strip Q6HR 03/05/25 18:00 03/06/25 11:48 1 STRIP Insulin Human Regular FOLLOW SLIDING SCALE Q6HR SC 03/05/25 18:00 Dextrose 50 ml UD IV 03/05/25 14:00 Amino Acids/ Electrolytes/ Dextrose 1,000 ml @ 41 mls/hr DAILY@2200 IV 03/05/25 22:00 03/05/25 20:26 41 MLS/HR Risperidone 1 mg DAILY PO 03/07/25 10:00 objective General: Overweight, afebrile, palor, mucosae are moist Cardiovascular: Regular S1 and S2. No murmurs, gallops or rubs. No JVD elevation. Pedal edema Respiratory: Decreased bilateral air entry on auscultation, mechanically ventilated Abdomen: Soft, nontender, nondistended, normoactive bowel sounds, no rebound tenderness, no organomegaly, no masses. Purulent vesicles on lower abdomen. Penile swelling. Small clots and Aguilar noted. Bilateral lower extremity, cyanosed, bluish, 3+ pedal edema, minimal pulses, laboratory and microbiology Laboratory Tests 03/06/25 02:36 Test 03/06/25 02:36 Range/Units Serum Glucose 93 74-106 mg/dL Problems(with codes): (1) Liver disease, chronic (2) Cyst of epididymis determined by ultrasound (3) Decompensated heart failure (4) Anasarca (5) Lactic acidosis (6) Generalized weakness (7) Acute respiratory failure with hypoxia Prognosis PL areAN transfer to telemetry, dc klonopin and and seroquel. start risperdal. swallow eval pending, keep ngt in interim. seen by podiatry, no intervention Dietary Evaluation Review Comments: CCHO-60 Cardiac diet, texture as tolearated when medically feasible nicotine cessation counseling Follow up with updated lab values Expected Outcomes/Goals: Improved nurition related lab values, free from nicotine Plan discussed with: Other (Nurse) NADINE SUTTON MD Mar 06, 2025 18:13
--- NOTE | 2025-03-06 20:18 | DVHPN2 ---
Progress Note - Dictate Date Seen: Mar 06, 2025 Has the PT tested + for MRSA If YES, has PT been informed?: No Medical Necessity Reason Pt with a Central, PICC or Fol: Yes The following are medically ne: Central Line, Aguilar Catheter Subjective Patient was seen and evaluated in follow up in the ICU. Patient is on 2 LPM NC. Patient is tolerating diet. Patient was seen by podiatry, no intervention recommended. Pressors discontinued. K 3.1, CO2 33. vital signs Vital Sign Date Time Temp Pulse Resp B/P (MAP) Pulse Ox O2 Delivery O2 Flow Rate FiO2 03/06/25 19:00 88 19 111/71 (84) 100 03/06/25 18:26 Nasal Cannula 2.0 03/06/25 18:26 28 03/06/25 17:27 98.1 98.1 Total Intake and Output 03/05/25 03/05/25 03/06/25 15:00 23:00 07:00 Intake Total 155.52 ml 287.52 ml 603.52 ml Output Total 700 ml 350 ml Balance 155.52 ml -412.48 ml 253.52 ml medications Current Medications Medications Dose Ordered Sig/Geraldo Route Start Time Stop Time Status Last Admin Dose Admin Acetaminophen 650 mg Q6HP PRN PO 02/11/25 22:15 Aspirin 81 mg DAILY PO 02/12/25 10:00 03/06/25 10:32 81 MG Nicotine 1 patch DAILY TD 02/13/25 10:00 03/06/25 10:31 1 PATCH Sennosides 8.6 mg HS PO 02/14/25 22:00 03/05/25 21:44 8.6 MG Pantoprazole Sodium 40 mg DAILY IV 02/17/25 10:00 03/06/25 10:30 40 MG Lactulose 30 ml BID PO 02/17/25 22:00 03/06/25 10:30 30 ML Sodium Chloride 10 ml QSHIFT@10,22 IV 02/21/25 22:00 03/06/25 10:33 10 ML Albuterol 2.5 mg Q6HR NEB 02/24/25 18:00 03/06/25 18:26 2.5 MG Ipratropium [place] 0.5 mg Q6HR NEB 02/24/25 18:00 03/06/25 18:26 0.5 MG Ondansetron HCl 4 mg Q6HPRN PRN IV 02/26/25 22:30 Midodrine 10 mg TID@0600,1200,1800 PO 03/03/25 12:00 03/06/25 18:40 10 MG Amino Acids 0 ml @ 0 mls/hr PER PHARMACY IV 03/05/25 13:00 Diagnostic Test (Pha) 1 strip Q6HR 03/05/25 18:00 03/06/25 18:41 1 STRIP Insulin Human Regular FOLLOW SLIDING SCALE Q6HR SC 03/05/25 18:00 Dextrose 50 ml UD IV 03/05/25 14:00 Amino Acids/ Electrolytes/ Dextrose 1,000 ml @ 41 mls/hr DAILY@2200 IV 03/05/25 22:00 03/05/25 20:26 41 MLS/HR Risperidone 1 mg DAILY PO 03/07/25 10:00 objective GENERAL: Ill appearing, Awake. EYES: PERRL, EOMI. Anicteric. HENT: Moist mucous membranes. LUNGS: Decreased breath sounds. CARDIOVASCULAR: Regular rate and rhythm. ABDOMEN: Soft, nontender and nondistended. EXTREMITIES: No edema. SKIN: Warm, dry. laboratory and microbiology Laboratory Tests 03/06/25 02:36 Test 03/06/25 02:36 Range/Units Serum Glucose 93 74-106 mg/dL Problem List S/P PEA arrest. Cardiogenic shock. Acute hypoxic respiratory failure Systolic Heart failure with reduced ejection fraction. NSTEMI. Hypertension. Hyperkalemia. Small R pleural effusion. COPD with exacerbation. PNA. DCM. Transaminitis. ALEXIS. Lactic acidosis. Meth use. Leukocytosis. Type 2 GA demand ischemia. Chronic venous stasis. Foot gangrene. L/l UE superficial thrombosis. High degree block. NSVT. Assessment/Plan Continued all current supportive medical care. Aspirin. Diuretics with Lasix. GI prophylactics. Additional plan as per the hospital course. Critical care time of 45 minutes provided to include time spent evaluation of patient at bedside, when appropriate patient/family education for diagnosis, treatment plan, review of pertinent medical information and discussion of care with specialty providers and PCP. Dietary Evaluation Review Comments: CCHO-60 Cardiac diet, texture as tolearated when medically feasible nicotine cessation counseling Follow up with updated lab values Expected Outcomes/Goals: Improved nurition related lab values, free from nicotine Plan discussed with: Patient SHARMILA BENDER MD Mar 06, 2025 20:18
--- NOTE | 2025-03-06 23:31 | DVHPN2 ---
Subjective DOS: 03/06/2025 Patient seen and examined at bedside. Remains on supplemental oxygen Overnight events reviewed.. Reviewed: Care Plan, H&P, Labs, Medications, Previous Orders, Radiology Changes from previous H/P or p: No Changes General: Per HPI Eyes: No Pain, No Vision change, No Conjunctivae inflammation, No Eyelid inflammation, No Other, No Redness ENT: No Ear pain, No Ear discharge, No Nose pain, No Nose discharge, No Nose congestion, No Mouth pain, No Mouth swelling, No Throat pain, No Throat swelling, No Other Cardiovascular: No Chest Pain, No Palpitations, No Orthopnea, No Paroxysmal Noc. Dyspnea, No Edema, No Lt Headedness, No Other Respiratory: No Cough, No Dry; Shortness of breath, SOB with excertion; No Wheezing, No Hemoptysis, No Pleuritic Pain, No Sputum; Other (SOB at rest) Gastrointestinal: No Nausea, No Vomiting; Abdominal Pain; No Diarrhea, No Constipation, No Melena, No Hematochezia; Other (Abdominal distention) Genitourinary: No Dysuria, No Frequency, No Incontinence, No Hematuria, No Retention, No Other Musculoskeletal: No other, No neck pain, No shoulder pain, No arm pain, No back pain, No hand pain, No leg pain, No foot pain Skin: No Rash, No Lesions, No Jaundice, No Bruising; Other (Lower extremity open wounds) Objective Vitals Vital Signs Date Time Temp Pulse Resp B/P (MAP) Pulse Ox O2 Delivery O2 Flow Rate FiO2 03/06/25 23:00 71 22 106/67 (80) 92 03/06/25 22:00 Nasal Cannula* 2 28 03/06/25 20:00 97.7 97.7 Intake/Output Intake and Output 03/06/25 07:00 Intake Total 1046.56 ml Output Total 1050 ml Balance -3.44 ml Intake Oral 210 ml IV Total 836.56 ml Output Urine Total 1050 ml Exam Gen.: Patient lying in bed in no apparent distress. On supplemental oxygen. Head: Normocephalic, atraumatic. Eyes: EOMI/PERRLA. Ears: Normal hearing. Normal anatomy. Neck/trachea: Trachea midline, supple. Nose: Normal external anatomy. Mouth: Moist mucous membranes. Chest: Decreased air entry bilaterally. No wheezing or rhonchi. Cardiovascular: Positive S1, positive S2. Regular rate and rhythm. Abdomen: Positive bowel sounds in all 4 quadrants. Soft, non-tender, non- distended. : Deferred. Rectal: Deferred. Skin: Warm, dry. Intact. Extremities: 2+ radial pulses bilaterally. No lower extremity edema. Neuro: Awake, ill appearing. No gross motor or sensory deficits. Cranial nerves II through XII intact. Gait not assessed. HEENT: Atraumatic, PERRLA, EOMI, Mucous membr. moist/pink Neck: Supple Lungs: Clear to auscultation, Normal air movement Cardiovascular: Regular rate, Normal S1, Normal S2, No murmurs, Gallops, Rubs Abdomen: Normal bowel sounds, Soft, No tenderness Medications Current Medications Medications Dose Ordered Sig/Geraldo Route Start Time Stop Time Status Last Admin Dose Admin Acetaminophen 650 mg Q6HP PRN PO 02/11/25 22:15 Aspirin 81 mg DAILY PO 02/12/25 10:00 03/06/25 10:32 81 MG Nicotine 1 patch DAILY TD 02/13/25 10:00 03/06/25 10:31 1 PATCH Sennosides 8.6 mg HS PO 02/14/25 22:00 03/06/25 22:02 8.6 MG Pantoprazole Sodium 40 mg DAILY IV 02/17/25 10:00 03/06/25 10:30 40 MG Lactulose 30 ml BID PO 02/17/25 22:00 03/06/25 22:02 30 ML Sodium Chloride 10 ml QSHIFT@10,22 IV 02/21/25 22:00 03/06/25 22:02 10 ML Albuterol 2.5 mg Q6HR NEB 02/24/25 18:00 03/06/25 18:26 2.5 MG Ipratropium [place] 0.5 mg Q6HR NEB 02/24/25 18:00 03/06/25 18:26 0.5 MG Ondansetron HCl 4 mg Q6HPRN PRN IV 02/26/25 22:30 Midodrine 10 mg TID@0600,1200,1800 PO 03/03/25 12:00 03/06/25 18:40 10 MG Amino Acids 0 ml @ 0 mls/hr PER PHARMACY IV 03/05/25 13:00 Diagnostic Test (Pha) 1 strip Q6HR 03/05/25 18:00 03/06/25 18:41 1 STRIP Insulin Human Regular FOLLOW SLIDING SCALE Q6HR SC 03/05/25 18:00 Dextrose 50 ml UD IV 03/05/25 14:00 Amino Acids/ Electrolytes/ Dextrose 1,000 ml @ 41 mls/hr DAILY@2200 IV 03/05/25 22:00 03/06/25 22:03 41 MLS/HR Risperidone 1 mg DAILY PO 03/07/25 10:00 Laboratory Results Laboratory Tests 03/06/25 02:36 Chemistry Test 03/06/25 02:36 Albumin 3.2 g/dL (3.2-4.8) Calcium Level 9.1 mg/dL (8.7-10.4) Magnesium Level 1.8 mg/dL (1.6-2.6) Phosphorus Level 2.7 mg/dL (2.4-5.1) Total Protein 6.5 g/dL (5.7-8.2) LFT Test 03/06/25 02:36 Alanine Aminotransferase (ALT) 23 U/L (7-40) Alkaline Phosphatase 116 U/L (46-116) Aspartate Amino Transferase (AST) 45 U/L (13-40) H Total Bilirubin 1.2 mg/dL (0.2-1.0) H Urinalysis Test 02/14/25 11:30 02/19/25 13:50 Urine Protein/Creatinine Ratio 0.26 Urine Total Protein < 6.0 mg/dL (1-14) Urine Osmolality 587 mOsm/kg Urine Creatinine 76.95 mg/dL (30.0-125.0) Urine Sodium 79 mmol/L (40-220) Microbiology Microbiology Date/Time Source Procedure Growth Status 03/01/25 17:30 Pleural Fluid Gram Stain - Final Complete 03/01/25 17:30 Pleural Fluid Body Fluid Culture - Final Complete 02/13/25 08:15 Nose MRSA Screen - Final Complete 02/11/25 19:38 Blood Blood Culture - Final NO GROWTH AFTER 5 DAYS OF INCUBATION. Complete Assessment/Plan Assessment/Plan Impression: Acute hypoxemic respiratory failure Pleural effusion Atelectasis S/p cardiac arrest Cardiomyopathy Congestive heart failure Obesity Events: Currently transitioned off supplemental oxygen Remains on room air No distress. On 1:1 sitter for safety. No acute overnight events NGT in place. Plan for Speech and Swallow eval Patient failed prior swallow evaluation. Patient remains on his fixed dose of Dobutamine 2.5 mcg/min for inotropic support Off pressors - hemodynamically stable. Continue bronchodilators Wound care. Midodrine for blood pressure support Lactulose Nephrology recs appreciated Diurese to maintain euvolemia Monitor renal function Monitor electrolytes. Supplement as necessary.. Clinimix/Tube feeds for nutritional support Patient remains NPO Awaiting swallow eval Head of bed elevation Aspiration precautions. S/p right thoracentesis on 03/01/25 - 650 mL fluid removed. S/p PICC line placement - PICC line is deemed medically necessary for administration of pressors. Abdomen x-ray shows no e/o bowel obstruction. Labs and imaging reviewed. Rest of plan as noted below. Plan: S/p extubation On supplemental oxygen Titrate to keep O2 sats above 90%. Patient is s/p right thoracentesis. Continue bronchodilators. Completed antibiotics. Monitor WBC count Pressors as necessary for hemodynamic support Titrate to keep mean arterial pressure greater than 65 mmHg. Patient with on and off bradycardia and NSVT On Dobutamine 2.5 mcg/min for inotropic support Plan for pacemaker placement. Echo report reviewed; EF approximately 20% Cardiology recs appreciated. On Protonix Monitor hemoglobin Tube feeds for nutritional support Follow up GI recs Monitor renal function Monitor electrolytes. Supplement as necessary. Monitor ins and outs. Maintain euvolemia. Follow up Podiatry recs GI prophylaxis -Protonix. DVT prophylaxis - Lovenox. Prognosis: Poor given patient's multiple co-morbidities. Condition: Critical Rest of plan per hospitalist and other consultants. A total of 35 minutes of critical care time was spent reviewing the patient record, examining the patient, making a diagnostic and therapeutic plan, discussing this plan with the medical personnel, following up on diagnostic studies and following the patient for clinical stability excluding any and all procedures. At least 50% of this time was spent in direct, [id number] contact. Thank you, Dr. Blas, for allowing me to participate in this patient's care. Further recommendations will depend on the patient's clinical course. Please do not hesitate to contact me if you have any questions or concerns. This medical document was created using an electronic medical record system with [employer] dictation system. Although these documentations are being carefully reviewed, there may still be some phonetic and typographical changes. The errors are purely typographical, due to imperfection on the software program, and do not reflect any compromise in the patient's medical care. Plan discussed with: Other (LEIGHTON Saavedra) Visit Coding Pulmonary Billing Provider: DOLORES VELAZQUEZ MD Date of Service if different f: Mar 06, 2025 Common Visit Codes: [id number] INP/OBS CARE(HIGH), [id number] CARE 30-74 MIN DOLORES VELAZQUEZ MD Mar 06, 2025 23:31
[2025-03-07] VITALS (43 sets, daily range): BP systolic 90–118; BP diastolic 52–71; PULSE 72–94; RESP 16–27; TEMP 97.7–99.3; O2SAT 93–100
[2025-03-07] MEDS: ALBUTEROL SULF 2.5 MG/0.5ML(0.5%) NEB SOLN ONE (05:47)
[2025-03-07] MEDS: IPRATROPIUM BROM 0.5 MG/2.5ML INH SOL ONE (05:48)
[2025-03-07 06:03] LABS: Hematocrit 38.8 % (41.0-53.0); Hemoglobin 13.3 g/dL (13.5-17.5); Mean Corpuscular Hemoglobin 30.3 pg (28.0-32.0); Mean Corpuscular Volume 88.9 fL (80.0-100.0); Nucleated Red Blood Cells % 0.1 %
[2025-03-07 06:45] LABS: Alanine Aminotransferase 19 U/L (7-40); Alkaline Phosphatase 116 U/L (46-116); Anion Gap 9 (5-15); BUN/Creatinine Ratio 23.6 (10.0-20.0); Blood Urea Nitrogen 13 mg/dL (9-23); Calcium 8.7 mg/dL (8.7-10.4); Carbon Dioxide 28 mmol/L (20-31); Glucose 102 mg/dL (74-106); Magnesium 1.6 mg/dL (1.6-2.6); Total Protein 6.5 g/dL (5.7-8.2)
[2025-03-07 06:46] LABS: Albumin 3.2 g/dL (3.2-4.8)
[2025-03-07 06:47] LABS: Bilirubin, Total 1.2 mg/dL (0.2-1.0)
[2025-03-07 06:50] LABS: Chloride 96 mmol/L (98-107); Potassium 3.4 mmol/L (3.5-5.1); Sodium 133 mmol/L (136-145)
[2025-03-07] MEDS ORDERED: POTASSIUM CHLORIDE 40 MEQ, LIDOCAINE 1% (LOCAL ANESTH.) 4 ML in SODIUM CHL 0.9% 250 ML IV ONE (07:15)
[2025-03-07] MEDS: POTASSIUM CHL 20MEQ/100ML 100 ML IV SCH (08:53)
[2025-03-07] MEDS: POTASSIUM CHL 20MEQ/100ML 200 ML IV ONE (09:00)
[2025-03-07] MEDS: risperiDONE 1 MG TAB PO SCH (09:43)
[2025-03-07] MEDS: MAGNESIUM SULFATE 1GM/100ML 200 ML IV ONE (15:27)
[2025-03-07] MEDS: MAGNESIUM SULFATE 1GM/100ML 100 ML IV SCH (15:27)
--- NOTE | 2025-03-07 16:24 | DVHPN2 ---
Assessment/Plan Assessment/Plan ICU note 64 M with HTN, HFrEF 20%, DM, ascites, meth use admitted for SOB, later was found in respiratory distress, intubated and had PEA arrest, ROSC in 4 minutes. 02/14 s/p thora, 2 L out. switched to lasix drip. start TF. POCUS done, minimal tapable pocket in abdomen. wound culture with prelim growth. wound care 02/15 wound culture back, changed abx to vanc and latyon, starting oral meds for weaning, patient previously agitated, to decrease prevent self extubation. lasix drip switched to 60 BID. SAT SBT tomorrow. 02/16 hold diuresis today, POCUS with improving IVC, off sedation, not waking up still. 02/17 adding diamox, metabolic alkalosis, decrease RR, holding methadone and klonazepam, off sedation, opening eyes to name, not following command, c/w SAT SBT. 02/18 off sedation and calm 02/19 continues to remain intubated and off sedation 02/20 agitated, restarting methadone and clonazepam. will d/w fam regarding trach if he continues to be difficult to sedate. positive balance, readding lasix, discontinueing fluid. 02/21 POCUS done, IVC >2cm with no excursion, severely reduced EF. net positive the past 2 days, doubling lasix dose. back on pressor. follows commands once. once stable will get CT angio to see if he will need intervention. podiatry consult 02/22 b/l UE superficial thrombus, no deep vein thrombus, dc tlc, continue to titrate off pressor, c/w diuresis. daily SAT SBT. i called family but went to . plan for extubation vs trach, possibly without full mental status if doing well during cpap 02/23 seen today, still on sedation. on and off having bradycardia and NSVT. cardio reconsulted today. starting dobutamine, c/w lasix acetazolamide 02/24 adequate diuresis, stion dobu and levo, no increase ectopy. no mental status. called fam member but went to again. consult for trach and peg. 02/27 called franco, he does not want to make medical decision and deferred to anali sister. called anali, consent signed for trach peg. 02/28 surg consult for trach. pt with minimal response, unclear if following commands. will do cpap for exercise but likely proceed with trach and LTACH transfer. 03/01 pending trach today.later patient mental status improved, cpap for 2 hours. 03/02 extubated to cool mist. pending bedside swallow. still on dobu and levo 03/03 add midodrine, replete lytes. comfortable. bedside swallow, start diet, dc methadone, podiatry consult. c/w dobu fixed dose, off pressors, dg to tele w sitter 03/04 we will order official MAP MOUNTER eval, we will give Solu-Medrol 20 and further humidified nebulizer treatments and we will reassess RN bedside swallow. Start Clinimix. If patient continues to fail we will have to put NG tube to give psych meds. Currently patient is nonverbal but does follow some commands. Patient is full code, poor prognosis would recommend DNR DNI. 03/05 Continue Clinimix, blood pressure low on 60 Lasix we will decrease Lasix to 40 IV daily. If blood pressure stays low we will try IV bolus 250 LR trial. Keep dobutamine at 2.5 fixed rate. Aspiration precautions. Official MAP MOUNTER swallow eval. We will do another bedside RN swallow test. Making good urine output. Heart rate hanging in 70s to 80s. Patient likely has COPD hypercarbia we will decrease oxygen to goal 88-92%. We will not do trial of dobutamine weaning as patient is blood pressure low in map 60s. Patient states nonverbal. 03/06 seen today. transfer to telemetry, dc klonopin and and seroquel. start risperdal. swallow eval, keep ngt in interim. seen by podiatry, no intervention 03/07 sleepy but wakes up to name. holding sedatives except risperdal. attempt swallow while family bedside. dispo planning once able to eat. dc abx tomorrow called ex nannette, per ex , both sons will make medical decision together, given contact number of son through his boss. Norma Ugarte [phone] and son is Franco. Explained to Franco (son) regarding trach and peg and need of possible ppm and angiogram. he understands, will discuss with family and get back with a decision tomorrow. Per franco stanley to be reached at [phone] and [phone] (gf). franco does not want to make medical decision and defer to sister anali. d/w anali, agrees for trach peg and LTACH placement. physical exam follows command obese cannot appreciate JVD mechanical breath soundsl S1 S2 systolic murmur abdomen distended b/l LE edema w/ chronic venous wounds R foot with multiple gangrene dry and wet drips off labs reviewed acetinobacter, pseudomonas, e faecalis, MRSA in wound cultrue imaging cxr RLL opacity echo LVEF 20%, DCM, MR assessment and plan s/p PEA arrest ROSC 4 mins cardiogenic shock acute on chronic hypoxic RF acute on chronic systolic HF acute metabolic encephalopathy small R PLEF COPD with exacerbation PNA gp vs gn HFrEF 20% DCM transaminitis cirrhosis? ascites? ALEXIS likely VMN lactic acidosis meth use leukocytosis type 2 [place] demand ischemia DM? chronic venous stasis wound with multiple bact L testicular mass? foot gangrene b/l UE superficial thrombosis high degree block NSVT transfer telemetry extubated titrate levophed to maintain MAP >60 c/w diuresis close to euvolemic start risperdal c/w vanc , zosyn switched to [place] avoid fever VAP bundle bronchodilators hold GDMT until off pressors send A1C, lipid, tsh wound care daily SAT SBT podiatry consult dc dobutamine keep K 4 Ph 3 Mg 2 Diet hold until passed bedside swallow DVT PPX lovenox GI PPX protonix Lines picc jaffe Full code condition critical prognosis poor Plan discussed with: Patient, Spouse My Orders Orders - SYEDA VILLALOBOS MD Procedure Category Date Status Time Magnesium Sulfate PHA 03/07/25 Logged 1gm/100ml 15:00 Date of Service: Mar 07, 2025 Billing Provider: SYEDA VILLALOBOS MD Common Visit Codes: [id number] INP/OBS CARE(HIGH) SYEDA VILLALOBOS MD Mar 07, 2025 16:24
--- NOTE | 2025-03-07 17:51 | DVHPN2 ---
Progress Note - Dictate Date Seen: Mar 07, 2025 Has the PT tested + for MRSA If YES, has PT been informed?: No Medical Necessity Reason Pt with a Central, PICC or Fol: Yes The following are medically ne: Central Line, Aguilar Catheter Subjective Patient was seen and evaluated in follow up in the [facility]. Patient is on 2 LPM NC. Patient is sleepy but awakes to name. Sedatives are being held. K 3.4, AST 41. vital signs Vital Sign Date Time Temp Pulse Resp B/P (MAP) Pulse Ox O2 Delivery O2 Flow Rate FiO2 03/07/25 12:02 80 19 98 03/07/25 12:02 Nasal Cannula 2.0 03/07/25 12:02 28 03/07/25 08:00 97.7 95/65 (75) 97.7 Total Intake and Output 03/06/25 03/06/25 03/07/25 15:00 23:00 07:00 Intake Total 387.70 ml 358 ml 407 ml Output Total 325 ml 300 ml Balance 387.70 ml 33 ml 107 ml medications Current Medications Medications Dose Ordered Sig/Geraldo Route Start Time Stop Time Status Last Admin Dose Admin Acetaminophen 650 mg Q6HP PRN PO 02/11/25 22:15 Aspirin 81 mg DAILY PO 02/12/25 10:00 03/07/25 09:33 81 MG Nicotine 1 patch DAILY TD 02/13/25 10:00 03/07/25 09:33 1 PATCH Sennosides 8.6 mg HS PO 02/14/25 22:00 03/06/25 22:02 8.6 MG Pantoprazole Sodium 40 mg DAILY IV 02/17/25 10:00 03/07/25 09:27 40 MG Lactulose 30 ml BID PO 02/17/25 22:00 03/07/25 09:27 30 ML Sodium Chloride 10 ml QSHIFT@10,22 IV 02/21/25 22:00 03/07/25 09:27 10 ML Albuterol 2.5 mg Q6HR NEB 02/24/25 18:00 03/07/25 12:02 2.5 MG Ipratropium [place] 0.5 mg Q6HR NEB 02/24/25 18:00 03/07/25 12:02 0.5 MG Ondansetron HCl 4 mg Q6HPRN PRN IV 02/26/25 22:30 Midodrine 10 mg TID@0600,1200,1800 PO 03/03/25 12:00 03/07/25 05:21 10 MG Amino Acids 0 ml @ 0 mls/hr PER PHARMACY IV 03/05/25 13:00 Diagnostic Test (Pha) 1 strip Q6HR 03/05/25 18:00 03/07/25 12:29 1 STRIP Insulin Human Regular FOLLOW SLIDING SCALE Q6HR SC 03/05/25 18:00 Dextrose 50 ml UD IV 03/05/25 14:00 Amino Acids/ Electrolytes/ Dextrose 1,000 ml @ 41 mls/hr DAILY@2200 IV 03/05/25 22:00 03/06/25 22:03 41 MLS/HR Risperidone 1 mg DAILY PO 03/07/25 10:00 03/07/25 09:43 1 MG Potassium Chloride 100 ml @ 50 mls/hr Q2H IV 03/07/25 09:00 03/07/25 12:59 03/07/25 11:51 50 MLS/HR objective GENERAL: Ill appearing, Awake. EYES: PERRL, EOMI. Anicteric. HENT: Moist mucous membranes. LUNGS: Decreased breath sounds. CARDIOVASCULAR: Regular rate and rhythm. ABDOMEN: Soft, nontender and nondistended. EXTREMITIES: No edema. SKIN: Warm, dry. laboratory and microbiology Laboratory Tests 03/07/25 05:34 Test 03/07/25 05:34 Range/Units Serum Glucose 102 74-106 mg/dL Problem List S/P PEA arrest. Cardiogenic shock. Acute hypoxic respiratory failure Systolic Heart failure with reduced ejection fraction. NSTEMI. Hypertension. Hyperkalemia. Small R pleural effusion. COPD with exacerbation. PNA. DCM. Transaminitis. ALEXIS. Lactic acidosis. Meth use. Leukocytosis. Type 2 [place] demand ischemia. Chronic venous stasis. Foot gangrene. L/l UE superficial thrombosis. High degree block. NSVT. Assessment/Plan Continued all current supportive medical care. Aspirin. Midodrine. Diuretics with Lasix. GI prophylactics. Additional plan as per the hospital course. Critical care time of 45 minutes provided to include time spent evaluation of patient at bedside, when appropriate patient/family education for diagnosis, treatment plan, review of pertinent medical information and discussion of care with specialty providers and PCP. Dietary Evaluation Review Comments: [facility] Cardiac diet, texture as tolearated when medically feasible nicotine cessation counseling Follow up with updated lab values Expected Outcomes/Goals: Improved nurition related lab values, free from nicotine Plan discussed with: Patient SHARMILA BENDER MD Mar 07, 2025 12:35
--- NOTE | 2025-03-07 21:59 | DVHPN2 ---
Progress Note - Dictate Date Seen: Mar 07, 2025 Has the PT tested + for MRSA If YES, has PT been informed?: No Medical Necessity Reason Pt with a Central, PICC or Fol: Yes The following are medically ne: Central Line, Aguilar Catheter Subjective Patient is extubated but sleepy Patient is tolerating tube feedings He is also on Clinimix vital signs Vital Sign Date Time Temp Pulse Resp B/P (MAP) Pulse Ox O2 Delivery O2 Flow Rate FiO2 03/07/25 21:00 92 25 99/58 (72) 98 03/07/25 20:25 1.0 24 03/07/25 20:00 Nasal Cannula* 03/07/25 20:00 97.8 97.8 Total Intake and Output 03/06/25 03/06/25 03/07/25 15:00 23:00 07:00 Intake Total 387.70 ml 358 ml 448 ml Output Total 325 ml 300 ml Balance 387.70 ml 33 ml 148 ml medications Current Medications Medications Dose Ordered Sig/Geraldo Route Start Time Stop Time Status Last Admin Dose Admin Acetaminophen 650 mg Q6HP PRN PO 02/11/25 22:15 Aspirin 81 mg DAILY PO 02/12/25 10:00 03/07/25 09:33 81 MG Nicotine 1 patch DAILY TD 02/13/25 10:00 03/07/25 09:33 1 PATCH Sennosides 8.6 mg HS PO 02/14/25 22:00 03/06/25 22:02 8.6 MG Pantoprazole Sodium 40 mg DAILY IV 02/17/25 10:00 03/07/25 09:27 40 MG Lactulose 30 ml BID PO 02/17/25 22:00 03/07/25 09:27 30 ML Sodium Chloride 10 ml QSHIFT@, IV 02/21/25 22:00 03/07/25 21:35 10 ML Albuterol 2.5 mg Q6HR NEB 02/24/25 18:00 03/07/25 18:26 2.5 MG Ipratropium [place] 0.5 mg Q6HR NEB 02/24/25 18:00 03/07/25 18:27 0.5 MG Ondansetron HCl 4 mg Q6HPRN PRN IV 02/26/25 22:30 Midodrine 10 mg TID@0600,1200,1800 PO 03/03/25 12:00 03/07/25 18:45 10 MG Amino Acids 0 ml @ 0 mls/hr PER PHARMACY IV 03/05/25 13:00 Diagnostic Test (Pha) 1 strip Q6HR 03/05/25 18:00 03/07/25 18:12 1 STRIP Insulin Human Regular FOLLOW SLIDING SCALE Q6HR SC 03/05/25 18:00 Dextrose 50 ml UD IV 03/05/25 14:00 Amino Acids/ Electrolytes/ Dextrose 1,000 ml @ 41 mls/hr DAILY@2200 IV 03/05/25 22:00 03/07/25 21:34 41 MLS/HR Risperidone 1 mg DAILY PO 03/07/25 10:00 03/07/25 09:43 1 MG Enteral Nutritional Formula 240 ml Q6HR GT 03/08/25 12:00 objective General: Overweight, afebrile, palor, mucosae are moist Cardiovascular: Regular S1 and S2. No murmurs, gallops or rubs. No JVD elevation. Pedal edema Respiratory: Decreased bilateral air entry on auscultation, mechanically ventilated Abdomen: Soft, nontender, nondistended, normoactive bowel sounds, no rebound tenderness, no organomegaly, no masses. Purulent vesicles on lower abdomen. Penile swelling. Small clots and Aguilar noted. Bilateral lower extremity, cyanosed, bluish, 3+ pedal edema, minimal pulses, laboratory and microbiology Laboratory Tests 03/07/25 05:34 Test 03/07/25 05:34 Range/Units Serum Glucose 102 74-106 mg/dL Problems(with codes): (1) Liver disease, chronic (2) Decompensated heart failure (3) Anasarca (4) Lactic acidosis (5) Generalized weakness (6) Acute respiratory failure with hypoxia (7) COPD with acute exacerbation Prognosis PLAN Hold sedatives ;possibly hold risperdal Check ammonia level Attempt swallow while family bedside. dispo planning once able to eat. dc abx tomorrow Dietary Evaluation Review Comments: [facility]-60 Cardiac diet, texture as tolearated when medically feasible nicotine cessation counseling Follow up with updated lab values Expected Outcomes/Goals: Improved nurition related lab values, free from nicotine Plan discussed with: Other (Nurse) NADINE SUTTON MD Mar 07, 2025 21:59
--- NOTE | 2025-03-07 22:28 | DVHPN2 ---
Subjective DOS: 03/07/2025 Patient seen and examined at bedside. Currently on supplemental oxygen Overnight events reviewed.. Reviewed: Care Plan, H&P, Labs, Medications, Previous Orders, Radiology Changes from previous H/P or p: No Changes General: Per HPI Eyes: No Pain, No Vision change, No Conjunctivae inflammation, No Eyelid inflammation, No Other, No Redness ENT: No Ear pain, No Ear discharge, No Nose pain, No Nose discharge, No Nose congestion, No Mouth pain, No Mouth swelling, No Throat pain, No Throat swelling, No Other Cardiovascular: No Chest Pain, No Palpitations, No Orthopnea, No Paroxysmal Noc. Dyspnea, No Edema, No Lt Headedness, No Other Respiratory: No Cough, No Dry; Shortness of breath, SOB with excertion; No Wheezing, No Hemoptysis, No Pleuritic Pain, No Sputum; Other (SOB at rest) Gastrointestinal: No Nausea, No Vomiting; Abdominal Pain; No Diarrhea, No Constipation, No Melena, No Hematochezia; Other (Abdominal distention) Genitourinary: No Dysuria, No Frequency, No Incontinence, No Hematuria, No Retention, No Other Musculoskeletal: No other, No neck pain, No shoulder pain, No arm pain, No back pain, No hand pain, No leg pain, No foot pain Skin: No Rash, No Lesions, No Jaundice, No Bruising; Other (Lower extremity open wounds) Objective Vitals Vital Signs Date Time Temp Pulse Resp B/P (MAP) Pulse Ox O2 Delivery O2 Flow Rate FiO2 03/07/25 22:00 22 99 Nasal Cannula* 2 28 03/07/25 22:00 93 03/07/25 21:00 99/58 (72) 03/07/25 20:00 97.8 97.8 Intake/Output Intake and Output 03/07/25 07:00 Intake Total 1193.70 ml Output Total 625 ml Balance 568.70 ml Intake Oral 150 ml IV Total 1043.70 ml Output Urine Total 625 ml Exam Gen.: Patient lying in bed in no apparent distress. On supplemental oxygen. Head: Normocephalic, atraumatic. Eyes: EOMI/PERRLA. Ears: Normal hearing. Normal anatomy. Neck/trachea: Trachea midline, supple. Nose: Normal external anatomy. Mouth: Moist mucous membranes. Chest: Decreased air entry bilaterally. No wheezing or rhonchi. Cardiovascular: Positive S1, positive S2. Regular rate and rhythm. Abdomen: Positive bowel sounds in all 4 quadrants. Soft, non-tender, non- distended. : Deferred. Rectal: Deferred. Skin: Warm, dry. Intact. Extremities: 2+ radial pulses bilaterally. No lower extremity edema. Neuro: Awake, ill appearing. No gross motor or sensory deficits. Cranial nerves II through XII intact. Gait not assessed. HEENT: Atraumatic, PERRLA, EOMI, Mucous membr. moist/pink Neck: Supple Lungs: Clear to auscultation, Normal air movement Cardiovascular: Regular rate, Normal S1, Normal S2, No murmurs, Gallops, Rubs Abdomen: Normal bowel sounds, Soft, No tenderness Medications Current Medications Medications Dose Ordered Sig/Geraldo Route Start Time Stop Time Status Last Admin Dose Admin Acetaminophen 650 mg Q6HP PRN PO 02/11/25 22:15 Aspirin 81 mg DAILY PO 02/12/25 10:00 03/07/25 09:33 81 MG Nicotine 1 patch DAILY TD 02/13/25 10:00 03/07/25 09:33 1 PATCH Sennosides 8.6 mg HS PO 02/14/25 22:00 03/06/25 22:02 8.6 MG Pantoprazole Sodium 40 mg DAILY IV 02/17/25 10:00 03/07/25 09:27 40 MG Lactulose 30 ml BID PO 02/17/25 22:00 03/07/25 09:27 30 ML Sodium Chloride 10 ml QSHIFT@10,22 IV 02/21/25 22:00 03/07/25 21:35 10 ML Albuterol 2.5 mg Q6HR NEB 02/24/25 18:00 03/07/25 18:26 2.5 MG Ipratropium [place] 0.5 mg Q6HR NEB 02/24/25 18:00 03/07/25 18:27 0.5 MG Ondansetron HCl 4 mg Q6HPRN PRN IV 02/26/25 22:30 Midodrine 10 mg TID@0600,1200,1800 PO 03/03/25 12:00 03/07/25 18:45 10 MG Amino Acids 0 ml @ 0 mls/hr PER PHARMACY IV 03/05/25 13:00 Diagnostic Test (Pha) 1 strip Q6HR 03/05/25 18:00 03/07/25 18:12 1 STRIP Insulin Human Regular FOLLOW SLIDING SCALE Q6HR SC 03/05/25 18:00 Dextrose 50 ml UD IV 03/05/25 14:00 Amino Acids/ Electrolytes/ Dextrose 1,000 ml @ 41 mls/hr DAILY@2200 IV 03/05/25 22:00 03/07/25 21:34 41 MLS/HR Risperidone 1 mg DAILY PO 03/07/25 10:00 03/07/25 09:43 1 MG Enteral Nutritional Formula 240 ml Q6HR GT 03/08/25 12:00 Laboratory Results Laboratory Tests 03/07/25 05:34 Chemistry Test 03/07/25 05:34 Albumin 3.2 g/dL (3.2-4.8) Calcium Level 8.7 mg/dL (8.7-10.4) Magnesium Level 1.6 mg/dL (1.6-2.6) Phosphorus Level 3.2 mg/dL (2.4-5.1) Total Protein 6.5 g/dL (5.7-8.2) LFT Test 03/07/25 05:34 Alanine Aminotransferase (ALT) 19 U/L (7-40) Alkaline Phosphatase 116 U/L (46-116) Aspartate Amino Transferase (AST) 41 U/L (13-40) H Total Bilirubin 1.2 mg/dL (0.2-1.0) H Urinalysis Test 02/14/25 11:30 02/19/25 13:50 Urine Protein/Creatinine Ratio 0.26 Urine Total Protein < 6.0 mg/dL (1-14) Urine Osmolality 587 mOsm/kg Urine Creatinine 76.95 mg/dL (30.0-125.0) Urine Sodium 79 mmol/L (40-220) Microbiology Microbiology Date/Time Source Procedure Growth Status 03/01/25 17:30 Pleural Fluid Gram Stain - Final Complete 03/01/25 17:30 Pleural Fluid Body Fluid Culture - Final Complete 02/13/25 08:15 Nose MRSA Screen - Final Complete 02/11/25 19:38 Blood Blood Culture - Final NO GROWTH AFTER 5 DAYS OF INCUBATION. Complete Assessment/Plan Assessment/Plan Impression: Acute hypoxemic respiratory failure Pleural effusion Atelectasis S/p cardiac arrest Cardiomyopathy Congestive heart failure Obesity Events: Currently on supplemental oxygen On 2 LPM NC. Taper O2 as tolerated On 1:1 sitter for safety. Patient is sleepy but awakens to name. No acute overnight events Labs reviewed; K 3.4, AST 41. NGT in place. Awaiting Speech and Swallow eval Patient failed prior swallow evaluation. Head of bed elevation Aspiration precautions. Patient remains on his fixed dose of Dobutamine 2.5 mcg/min for inotropic support Off pressors - hemodynamically stable. Continue bronchodilators Wound care. Midodrine for blood pressure support Lactulose Clinimix/Tube feeds for nutritional support Monitor renal function Monitor electrolytes. Supplement as necessary. Potassium, magnesium supplementation Maintain euvolemia S/p right thoracentesis on 03/01/25 - 650 mL fluid removed. Abdomen x-ray shows no e/o bowel obstruction. Labs and imaging reviewed. Rest of plan as noted below. Plan: S/p extubation Supplemental oxygen Titrate to keep O2 sats above 92%. Patient is s/p right thoracentesis. Continue bronchodilators. Completed antibiotics. Monitor WBC count Pressors as necessary for hemodynamic support Titrate to keep mean arterial pressure greater than 65 mmHg. Patient with on and off bradycardia and NSVT On Dobutamine 2.5 mcg/min for inotropic support Plan for pacemaker placement. Echo report reviewed; EF approximately 20% Cardiology recs appreciated. On Protonix Monitor hemoglobin Tube feeds for nutritional support Follow up GI recs Monitor renal function Monitor electrolytes. Supplement as necessary. Monitor ins and outs. Maintain euvolemia. Follow up Podiatry recs GI prophylaxis -Protonix. DVT prophylaxis - Lovenox. Prognosis: Poor given patient's multiple co-morbidities. Rest of plan per hospitalist and other consultants. Thank you, Dr. Blas, for allowing me to participate in this patient's care. Further recommendations will depend on the patient's clinical course. Please do not hesitate to contact me if you have any questions or concerns. This medical document was created using an electronic medical record system with [employer] system. Although these documentations are being carefully reviewed, there may still be some phonetic and typographical changes. The errors are purely typographical, due to imperfection on the software program, and do not reflect any compromise in the patient's medical care. Plan discussed with: Patient, Other (LEIGHTON Valles) Visit Coding Pulmonary Billing Provider: DOLORES VELAZQUEZ MD Date of Service if different f: Mar 07, 2025 Common Visit Codes: [id number] INP/OBS CARE(HIGH) DOLORES VELAZQUEZ MD Mar 07, 2025 22:28
[2025-03-08] VITALS (43 sets, daily range): BP systolic 82–110; BP diastolic 48–73; PULSE 65–100; RESP 14–26; TEMP 97.6–98.6; O2SAT 83–100
[2025-03-08 06:18] LABS: Alanine Aminotransferase 22 U/L (7-40); Anion Gap 8 (5-15); BUN/Creatinine Ratio 26.4 (10.0-20.0); Blood Urea Nitrogen 14 mg/dL (9-23); Carbon Dioxide 28 mmol/L (20-31); Chloride 98 mmol/L (98-107); Glucose 104 mg/dL (74-106); Magnesium 1.8 mg/dL (1.6-2.6); Potassium 3.7 mmol/L (3.5-5.1); Total Protein 6.0 g/dL (5.7-8.2)
[2025-03-08 06:19] LABS: Albumin 3.0 g/dL (3.2-4.8); Alkaline Phosphatase 120 U/L (46-116); Bilirubin, Total 1.3 mg/dL (0.2-1.0); Calcium 8.5 mg/dL (8.7-10.4); Sodium 134 mmol/L (136-145)
--- NOTE | 2025-03-08 09:35 | DVHPN2 ---
Assessment/Plan Assessment/Plan ICU note 64 M with HTN, HFrEF 20%, DM, ascites, meth use admitted for SOB, later was found in respiratory distress, intubated and had PEA arrest, ROSC in 4 minutes. 02/14 s/p thora, 2 L out. switched to lasix drip. start TF. POCUS done, minimal tapable pocket in abdomen. wound culture with prelim growth. wound care 02/15 wound culture back, changed abx to vanc and layton, starting oral meds for weaning, patient previously agitated, to decrease prevent self extubation. lasix drip switched to 60 BID. SAT SBT tomorrow. 02/16 hold diuresis today, POCUS with improving IVC, off sedation, not waking up still. 02/17 adding diamox, metabolic alkalosis, decrease RR, holding methadone and klonazepam, off sedation, opening eyes to name, not following command, c/w SAT SBT. 02/18 off sedation and calm 02/19 continues to remain intubated and off sedation 02/20 agitated, restarting methadone and clonazepam. will d/w fam regarding trach if he continues to be difficult to sedate. positive balance, readding lasix, discontinueing fluid. 02/21 POCUS done, IVC >2cm with no excursion, severely reduced EF. net positive the past 2 days, doubling lasix dose. back on pressor. follows commands once. once stable will get CT angio to see if he will need intervention. podiatry consult 02/22 b/l UE superficial thrombus, no deep vein thrombus, dc tlc, continue to titrate off pressor, c/w diuresis. daily SAT SBT. i called family but went to . plan for extubation vs trach, possibly without full mental status if doing well during cpap 02/23 seen today, still on sedation. on and off having bradycardia and NSVT. cardio reconsulted today. starting dobutamine, c/w lasix acetazolamide 02/24 adequate diuresis, stion dobu and levo, no increase ectopy. no mental status. called fam member but went to again. consult for trach and peg. 02/27 called franco, he does not want to make medical decision and deferred to anali sister. called anali, consent signed for trach peg. 02/28 surg consult for trach. pt with minimal response, unclear if following commands. will do cpap for exercise but likely proceed with trach and LTACH transfer. 03/01 pending trach today.later patient mental status improved, cpap for 2 hours. 03/02 extubated to cool mist. pending bedside swallow. still on dobu and levo 03/03 add midodrine, replete lytes. comfortable. bedside swallow, start diet, dc methadone, podiatry consult. c/w dobu fixed dose, off pressors, dg to tele w sitter 03/04 we will order official PICKING MACHINE OPERATOR HELPER eval, we will give Solu-Medrol 20 and further humidified nebulizer treatments and we will reassess RN bedside swallow. Start Clinimix. If patient continues to fail we will have to put NG tube to give psych meds. Currently patient is nonverbal but does follow some commands. Patient is full code, poor prognosis would recommend DNR DNI. 03/05 Continue Clinimix, blood pressure low on 60 Lasix we will decrease Lasix to 40 IV daily. If blood pressure stays low we will try IV bolus 250 LR trial. Keep dobutamine at 2.5 fixed rate. Aspiration precautions. Official PICKING MACHINE OPERATOR HELPER swallow eval. We will do another bedside RN swallow test. Making good urine output. Heart rate hanging in 70s to 80s. Patient likely has COPD hypercarbia we will decrease oxygen to goal 88-92%. We will not do trial of dobutamine weaning as patient is blood pressure low in map 60s. Patient states nonverbal. 03/06 seen today. transfer to telemetry, dc klonopin and and seroquel. start risperdal. swallow eval, keep ngt in interim. seen by podiatry, no intervention 03/07 sleepy but wakes up to name. holding sedatives except risperdal. attempt swallow while family bedside. dispo planning once able to eat. dc abx tomorrow 03/08 transfered to [facility]alt, more awake, not swallowing, but able to speak and cough called ex nannette, per ex , both sons will make medical decision together, given contact number of son through his boss. Norma Ugarte [phone] and son is Franco. Explained to Franco (son) regarding trach and peg and need of possible ppm and angiogram. he understands, will discuss with family and get back with a decision tomorrow. Per normafranco to be reached at [phone] and [phone] (gf). franco does not want to make medical decision and defer to sister anali. d/w anali, agrees for trach peg and LTACH placement. physical exam follows command obese cannot appreciate JVD mechanical breath soundsl S1 S2 systolic murmur abdomen distended b/l LE edema w/ chronic venous wounds R foot with multiple gangrene dry and wet drips off labs reviewed acetinobacter, pseudomonas, e faecalis, MRSA in wound cultrue imaging cxr RLL opacity echo LVEF 20%, DCM, MR assessment and plan s/p PEA arrest ROSC 4 mins cardiogenic shock acute on chronic hypoxic RF acute on chronic systolic HF acute metabolic encephalopathy small R PLEF COPD with exacerbation PNA gp vs gn HFrEF 20% DCM transaminitis cirrhosis? ascites? ALEXIS likely VMN lactic acidosis meth use leukocytosis type 2 DE demand ischemia DM? chronic venous stasis wound with multiple bact L testicular mass? foot gangrene b/l UE superficial thrombosis high degree block NSVT transfer telemetry extubated titrate levophed to maintain MAP >60 c/w diuresis close to euvolemic start risperdal c/w vanc , zosyn switched to layton avoid fever VAP bundle bronchodilators hold GDMT until off pressors send A1C, lipid, tsh wound care daily SAT SBT podiatry consult dc dobutamine keep K 4 Ph 3 Mg 2 Diet hold until passed bedside swallow DVT PPX lovenox GI PPX protonix Lines picc jaffe Full code condition critical prognosis poor Plan discussed with: Patient My Orders Orders - SYEDA VILLALOBOS MD Procedure Category Date Status Time Nutritional PHA 03/08/25 In Process Supplements (Jevity 12:00 * Casual Shoe Inspector CONS 03/08/25 Verified Consult Date of Service: Mar 08, 2025 Billing Provider: SYEDA VILLALOBOS MD Common Visit Codes: [id number] INP/OBS CARE(HIGH) SYEDA VILLALOBOS MD Mar 08, 2025 09:34
[2025-03-08] MEDS: Jevity 1.2 Cal/Fiber 1 Liter GT SCH (12:00)
--- NOTE | 2025-03-08 13:26 | DVHPN2 ---
Progress Note - Dictate Date Seen: Mar 08, 2025 Has the PT tested + for MRSA If YES, has PT been informed?: No Medical Necessity Reason Pt with a Central, PICC or Fol: Yes The following are medically ne: Central Line, Aguilar Catheter Subjective Patient was seen and evaluated in follow up in the [facility]. Patient is now on 1 LPM NC. NA 134, CA 8.5, Ammonia 33. vital signs Vital Sign Date Time Temp Pulse Resp B/P (MAP) Pulse Ox O2 Delivery O2 Flow Rate FiO2 03/08/25 12:00 23 99 Nasal Cannula* 1 03/08/25 10:00 87 03/08/25 08:00 97.7 105/60 (75) 97.7 Total Intake and Output 03/07/25 03/07/25 03/08/25 15:00 23:00 07:00 Intake Total 578 ml 678 ml 388 ml Output Total 850 ml 850 ml Balance 578 ml -172 ml -462 ml medications Current Medications Medications Dose Ordered Sig/Geraldo Route Start Time Stop Time Status Last Admin Dose Admin Acetaminophen 650 mg Q6HP PRN PO 02/11/25 22:15 Aspirin 81 mg DAILY PO 02/12/25 10:00 03/08/25 09:58 81 MG Nicotine 1 patch DAILY TD 02/13/25 10:00 03/08/25 10:00 1 PATCH Pantoprazole Sodium 40 mg DAILY IV 02/17/25 10:00 03/08/25 09:58 40 MG Lactulose 30 ml BID PO 02/17/25 22:00 03/08/25 09:58 30 ML Sodium Chloride 10 ml QSHIFT@10,22 IV 02/21/25 22:00 03/08/25 09:58 10 ML Albuterol 2.5 mg Q6HR NEB 02/24/25 18:00 03/08/25 12:17 2.5 MG Ipratropium [place] 0.5 mg Q6HR NEB 02/24/25 18:00 03/08/25 12:17 0.5 MG Ondansetron HCl 4 mg Q6HPRN PRN IV 02/26/25 22:30 Midodrine 10 mg TID@0600,1200,1800 PO 03/03/25 12:00 03/08/25 12:27 10 MG Amino Acids 0 ml @ 0 mls/hr PER PHARMACY IV 03/05/25 13:00 Diagnostic Test (Pha) 1 strip Q6HR 03/05/25 18:00 03/08/25 12:12 1 STRIP Insulin Human Regular FOLLOW SLIDING SCALE Q6HR SC 03/05/25 18:00 Dextrose 50 ml UD IV 03/05/25 14:00 Amino Acids/ Electrolytes/ Dextrose 1,000 ml @ 41 mls/hr DAILY@2200 IV 03/05/25 22:00 03/07/25 21:34 41 MLS/HR Enteral Nutritional Formula 240 ml Q6HR GT 03/08/25 12:00 objective GENERAL: Ill appearing, Awake. EYES: PERRL, EOMI. Anicteric. HENT: Moist mucous membranes. LUNGS: Decreased breath sounds. CARDIOVASCULAR: Regular rate and rhythm. ABDOMEN: Soft, nontender and nondistended. EXTREMITIES: No edema. SKIN: Warm, dry. laboratory and microbiology Laboratory Tests 03/08/25 05:29 03/07/25 05:34 Test 03/08/25 05:29 Range/Units Serum Glucose 104 74-106 mg/dL Problem List S/P PEA arrest. Cardiogenic shock. Acute hypoxic respiratory failure Systolic Heart failure with reduced ejection fraction. NSTEMI. Hypertension. Hyperkalemia. Small R pleural effusion. COPD with exacerbation. PNA. DCM. Transaminitis. ALEXIS. Lactic acidosis. Meth use. Leukocytosis. Type 2 [place] demand ischemia. Chronic venous stasis. Foot gangrene. L/l UE superficial thrombosis. High degree block. NSVT. Assessment/Plan Continued all current supportive medical care. Aspirin. Midodrine. Diuretics with Lasix. GI prophylactics. Additional plan as per the hospital course. Critical care time of 45 minutes provided to include time spent evaluation of patient at bedside, when appropriate patient/family education for diagnosis, treatment plan, review of pertinent medical information and discussion of care with specialty providers and PCP. Dietary Evaluation Review Comments: CCHO-60 Cardiac diet, texture as tolearated when medically feasible nicotine cessation counseling Follow up with updated lab values Expected Outcomes/Goals: Improved nurition related lab values, free from nicotine Plan discussed with: Patient SHARMILA BENDER MD Mar 08, 2025 13:03
[2025-03-08] MEDS: FUROSEMIDE 40 MG/4 ML VIAL IV ONE (15:27)
--- NOTE | 2025-03-08 16:42 | DVHPN2 ---
Progress Note - Dictate Date Seen: Mar 08, 2025 Has the PT tested + for MRSA If YES, has PT been informed?: No Medical Necessity Reason Pt with a Central, PICC or Fol: Yes The following are medically ne: Central Line, Jaffe Catheter Subjective Patient is extubated but sleepy Patient is tolerating tube feedings He is also on Clinimix Patient is on 1 L nasal cannula Ammonia level at 33 No bowel movement recorded vital signs Vital Sign Date Time Temp Pulse Resp B/P (MAP) Pulse Ox O2 Delivery O2 Flow Rate FiO2 03/08/25 15:41 22 100 Nasal Cannula* 1 24 03/08/25 15:27 98/59 03/08/25 14:00 75 03/08/25 12:00 98.4 98.4 Total Intake and Output 03/07/25 03/07/25 03/08/25 14:59 22:59 06:59 Intake Total 578 ml 678 ml 388 ml Output Total 850 ml 850 ml Balance 578 ml -172 ml -462 ml medications Current Medications Medications Dose Ordered Sig/Geraldo Route Start Time Stop Time Status Last Admin Dose Admin Acetaminophen 650 mg Q6HP PRN PO 02/11/25 22:15 Aspirin 81 mg DAILY PO 02/12/25 10:00 03/08/25 09:58 81 MG Nicotine 1 patch DAILY TD 02/13/25 10:00 03/08/25 10:00 1 PATCH Pantoprazole Sodium 40 mg DAILY IV 02/17/25 10:00 03/08/25 09:58 40 MG Lactulose 30 ml BID PO 02/17/25 22:00 03/08/25 09:58 30 ML Sodium Chloride 10 ml QSHIFT@10,22 IV 02/21/25 22:00 03/08/25 09:58 10 ML Albuterol 2.5 mg Q6HR NEB 02/24/25 18:00 03/08/25 12:17 2.5 MG Ipratropium [place] 0.5 mg Q6HR NEB 02/24/25 18:00 03/08/25 12:17 0.5 MG Ondansetron HCl 4 mg Q6HPRN PRN IV 02/26/25 22:30 Midodrine 10 mg TID@0600,1200,1800 PO 03/03/25 12:00 03/08/25 12:27 10 MG Amino Acids 0 ml @ 0 mls/hr PER PHARMACY IV 03/05/25 13:00 Diagnostic Test (Pha) 1 strip Q6HR 03/05/25 18:00 03/08/25 12:12 1 STRIP Insulin Human Regular FOLLOW SLIDING SCALE Q6HR SC 03/05/25 18:00 Dextrose 50 ml UD IV 03/05/25 14:00 Amino Acids/ Electrolytes/ Dextrose 1,000 ml @ 41 mls/hr DAILY@2200 IV 03/05/25 22:00 03/07/25 21:34 41 MLS/HR Enteral Nutritional Formula 240 ml Q6HR GT 03/08/25 12:00 03/08/25 12:00 240 ML objective General: Afebrile, palor, mucosae are moist Cardiovascular: Regular S1 and S2. No murmurs, gallops or rubs. No JVD elevation. Pedal edema Respiratory: Decreased bilateral air entry on auscultation, mechanically ventilated Abdomen: Soft, nontender, nondistended, normoactive bowel sounds, no rebound tenderness, no organomegaly, no masses. Purulent vesicles on lower abdomen. Penile swelling. Small clots and Jaffe noted. Bilateral lower extremity, cyanosed, bluish, 2+ pedal edema, minimal pulses, laboratory and microbiology Laboratory Tests 03/08/25 05:29 03/07/25 05:34 Test 03/08/25 05:29 Range/Units Serum Glucose 104 74-106 mg/dL Problems(with codes): (1) Cyst of epididymis determined by ultrasound (2) Liver disease, chronic (3) Decompensated heart failure (4) Anasarca (5) Lactic acidosis (6) Generalized weakness (7) Acute respiratory failure with hypoxia Prognosis PLAN Diet hold until passed bedside swallow DVT PPX lovenox GI PPX protonix Continue lactulose daily Lines picc jaffe Full code condition guarded Dietary Evaluation Review Comments: CCHO-60 Cardiac diet, texture as tolearated when medically feasible nicotine cessation counseling Follow up with updated lab values Expected Outcomes/Goals: Improved nurition related lab values, free from nicotine Plan discussed with: Patient NADINE SUTTON MD Mar 08, 2025 16:42
--- NOTE | 2025-03-08 23:27 | DVHPN2 ---
Subjective DOS: 03/08/2025 Patient seen and examined at bedside. Currently on supplemental oxygen Overnight events reviewed.. Reviewed: Care Plan, H&P, Labs, Medications, Previous Orders, Radiology Changes from previous H/P or p: No Changes General: Per HPI Eyes: No Pain, No Vision change, No Conjunctivae inflammation, No Eyelid inflammation, No Other, No Redness ENT: No Ear pain, No Ear discharge, No Nose pain, No Nose discharge, No Nose congestion, No Mouth pain, No Mouth swelling, No Throat pain, No Throat swelling, No Other Cardiovascular: No Chest Pain, No Palpitations, No Orthopnea, No Paroxysmal Noc. Dyspnea, No Edema, No Lt Headedness, No Other Respiratory: No Cough, No Dry; Shortness of breath, SOB with excertion; No Wheezing, No Hemoptysis, No Pleuritic Pain, No Sputum; Other (SOB at rest) Gastrointestinal: No Nausea, No Vomiting; Abdominal Pain; No Diarrhea, No Constipation, No Melena, No Hematochezia; Other (Abdominal distention) Genitourinary: No Dysuria, No Frequency, No Incontinence, No Hematuria, No Retention, No Other Musculoskeletal: No other, No neck pain, No shoulder pain, No arm pain, No back pain, No hand pain, No leg pain, No foot pain Skin: No Rash, No Lesions, No Jaundice, No Bruising; Other (Lower extremity open wounds) Objective Vitals Vital Signs Date Time Temp Pulse Resp B/P (MAP) Pulse Ox O2 Delivery O2 Flow Rate FiO2 03/08/25 22:00 15 97 Room Air* 0 21 03/08/25 20:00 98.6 82 97/56 (70) 98.6 Intake/Output Intake and Output 03/08/25 07:00 Intake Total 1644 ml Output Total 1700 ml Balance -56 ml Intake Oral 110 ml IV Total 1534 ml Output Urine Total 1700 ml Exam Gen.: Patient lying in bed in no apparent distress. On supplemental oxygen. Head: Normocephalic, atraumatic. Eyes: EOMI/PERRLA. Ears: Normal hearing. Normal anatomy. Neck/trachea: Trachea midline, supple. Nose: Normal external anatomy. Mouth: Moist mucous membranes. Chest: Decreased air entry bilaterally. No wheezing or rhonchi. Cardiovascular: Positive S1, positive S2. Regular rate and rhythm. Abdomen: Positive bowel sounds in all 4 quadrants. Soft, non-tender, non- distended. : Deferred. Rectal: Deferred. Skin: Warm, dry. Intact. Extremities: 2+ radial pulses bilaterally. No lower extremity edema. Neuro: Awake, ill appearing. No gross motor or sensory deficits. Cranial nerves II through XII intact. Gait not assessed. HEENT: Atraumatic, PERRLA, EOMI, Mucous membr. moist/pink Neck: Supple Lungs: Clear to auscultation, Normal air movement Cardiovascular: Regular rate, Normal S1, Normal S2, No murmurs, Gallops, Rubs Abdomen: Normal bowel sounds, Soft, No tenderness Medications Current Medications Medications Dose Ordered Sig/Geraldo Route Start Time Stop Time Status Last Admin Dose Admin Acetaminophen 650 mg Q6HP PRN PO 02/11/25 22:15 Aspirin 81 mg DAILY PO 02/12/25 10:00 03/08/25 09:58 81 MG Nicotine 1 patch DAILY TD 02/13/25 10:00 03/08/25 10:00 1 PATCH Pantoprazole Sodium 40 mg DAILY IV 02/17/25 10:00 03/08/25 09:58 40 MG Lactulose 30 ml BID PO 02/17/25 22:00 03/08/25 09:58 30 ML Sodium Chloride 10 ml QSHIFT@10,22 IV 02/21/25 22:00 03/08/25 22:00 10 ML Albuterol 2.5 mg Q6HR NEB 02/24/25 18:00 03/08/25 18:45 2.5 MG Ipratropium [place] 0.5 mg Q6HR NEB 02/24/25 18:00 03/08/25 18:45 0.5 MG Ondansetron HCl 4 mg Q6HPRN PRN IV 02/26/25 22:30 Midodrine 10 mg TID@0600,1200,1800 PO 03/03/25 12:00 03/08/25 18:48 10 MG Amino Acids 0 ml @ 0 mls/hr PER PHARMACY IV 03/05/25 13:00 Diagnostic Test (Pha) 1 strip Q6HR 03/05/25 18:00 03/08/25 17:59 1 STRIP Insulin Human Regular FOLLOW SLIDING SCALE Q6HR SC 03/05/25 18:00 Dextrose 50 ml UD IV 03/05/25 14:00 Amino Acids/ Electrolytes/ Dextrose 1,000 ml @ 41 mls/hr DAILY@2200 IV 03/05/25 22:00 03/08/25 22:51 41 MLS/HR Enteral Nutritional Formula 240 ml Q6HR GT 03/08/25 12:00 03/08/25 18:00 240 ML Laboratory Results Laboratory Tests 03/07/25 05:34 03/08/25 05:29 Chemistry Test 03/08/25 05:29 Albumin 3.0 g/dL (3.2-4.8) L Calcium Level 8.5 mg/dL (8.7-10.4) L Magnesium Level 1.8 mg/dL (1.6-2.6) Phosphorus Level 2.9 mg/dL (2.4-5.1) Total Protein 6.0 g/dL (5.7-8.2) LFT Test 03/08/25 05:29 Alanine Aminotransferase (ALT) 22 U/L (7-40) Alkaline Phosphatase 120 U/L (46-116) H Aspartate Amino Transferase (AST) 36 U/L (13-40) Total Bilirubin 1.3 mg/dL (0.2-1.0) H Urinalysis Test 02/14/25 11:30 02/19/25 13:50 Urine Protein/Creatinine Ratio 0.26 Urine Total Protein < 6.0 mg/dL (1-14) Urine Osmolality 587 mOsm/kg Urine Creatinine 76.95 mg/dL (30.0-125.0) Urine Sodium 79 mmol/L (40-220) Microbiology Microbiology Date/Time Source Procedure Growth Status 03/01/25 17:30 Pleural Fluid Gram Stain - Final Complete 03/01/25 17:30 Pleural Fluid Body Fluid Culture - Final Complete 02/13/25 08:15 Nose MRSA Screen - Final Complete 02/11/25 19:38 Blood Blood Culture - Final NO GROWTH AFTER 5 DAYS OF INCUBATION. Complete Assessment/Plan Assessment/Plan Impression: Acute hypoxemic respiratory failure Pleural effusion Atelectasis S/p cardiac arrest Cardiomyopathy Congestive heart failure Obesity Events: Currently on supplemental oxygen On 1 LPM NC. Taper O2 as tolerated On 1:1 sitter for safety. No acute overnight events NGT in place. Awaiting Speech and Swallow eval Patient failed prior swallow evaluation. Head of bed elevation Aspiration precautions. Patient remains on his fixed dose of Dobutamine 2.5 mcg/min for inotropic support Off pressors - hemodynamically stable. Continue bronchodilators Midodrine for blood pressure support Clinimix/Tube feeds for nutritional support Wound care. Diurese as tolerated with Lasix Monitor renal function Monitor electrolytes. Supplement as necessary. Labs reviewed; K 3.7, mag of 1.8. Maintain euvolemia S/p right thoracentesis on 03/01/25 - 650 mL fluid removed. Abdomen x-ray shows no e/o bowel obstruction. Labs and imaging reviewed. Rest of plan as noted below. Plan: S/p extubation Supplemental oxygen Titrate to keep O2 sats above 92%. Patient is s/p right thoracentesis. Continue bronchodilators. Completed antibiotics. Monitor WBC count Pressors as necessary for hemodynamic support Titrate to keep mean arterial pressure greater than 65 mmHg. Patient with on and off bradycardia and NSVT On Dobutamine 2.5 mcg/min for inotropic support Plan for pacemaker placement. Echo report reviewed; EF approximately 20% Cardiology recs appreciated. On Protonix Monitor hemoglobin Tube feeds for nutritional support Follow up GI recs Monitor renal function Monitor electrolytes. Supplement as necessary. Monitor ins and outs. Maintain euvolemia. Follow up Podiatry recs GI prophylaxis -Protonix. DVT prophylaxis - Lovenox. Prognosis: Poor given patient's multiple co-morbidities. Rest of plan per hospitalist and other consultants. Thank you, Dr. Blas, for allowing me to participate in this patient's care. Further recommendations will depend on the patient's clinical course. Please do not hesitate to contact me if you have any questions or concerns. This medical document was created using an electronic medical record system with [employer] dictation system. Although these documentations are being carefully reviewed, there may still be some phonetic and typographical changes. The errors are purely typographical, due to imperfection on the software program, and do not reflect any compromise in the patient's medical care. Plan discussed with: Other (LEIGHTON Ross) Visit Coding Pulmonary Billing Provider: DOLORES VELAZQUEZ MD Date of Service if different f: Mar 08, 2025 Common Visit Codes: [id number] INP/OBS CARE(HIGH) DOLORES VELAZQUEZ MD Mar 08, 2025 23:27
[2025-03-09] VITALS (20 sets, daily range): BP systolic 100–105; BP diastolic 59–66; PULSE 77–95; RESP 14–22; TEMP 97.9–99.1; O2SAT 90–100
[2025-03-09 06:06] LABS: Alanine Aminotransferase 20 U/L (7-40); Albumin 3.3 g/dL (3.2-4.8); Anion Gap 8 (5-15); BUN/Creatinine Ratio 24.6 (10.0-20.0); Blood Urea Nitrogen 14 mg/dL (9-23); Carbon Dioxide 29 mmol/L (20-31); Magnesium 1.7 mg/dL (1.6-2.6); Potassium 3.5 mmol/L (3.5-5.1); Total Protein 6.6 g/dL (5.7-8.2)
[2025-03-09 06:07] LABS: Bilirubin, Total 1.0 mg/dL (0.2-1.0)
[2025-03-09 06:13] LABS: Alkaline Phosphatase 132 U/L (46-116); Calcium 8.7 mg/dL (8.7-10.4); Chloride 97 mmol/L (98-107); Glucose 111 mg/dL (74-106); Sodium 134 mmol/L (136-145)
--- NOTE | 2025-03-09 08:35 | DVHPN2 ---
Assessment/Plan Assessment/Plan ICU note 64 M with HTN, HFrEF 20%, DM, ascites, meth use admitted for SOB, later was found in respiratory distress, intubated and had PEA arrest, ROSC in 4 minutes. 02/14 s/p thora, 2 L out. switched to lasix drip. start TF. POCUS done, minimal tapable pocket in abdomen. wound culture with prelim growth. wound care 02/15 wound culture back, changed abx to vanc and layton, starting oral meds for weaning, patient previously agitated, to decrease prevent self extubation. lasix drip switched to 60 BID. SAT SBT tomorrow. 02/16 hold diuresis today, POCUS with improving IVC, off sedation, not waking up still. 02/17 adding diamox, metabolic alkalosis, decrease RR, holding methadone and klonazepam, off sedation, opening eyes to name, not following command, c/w SAT SBT. 02/18 off sedation and calm 02/19 continues to remain intubated and off sedation 02/20 agitated, restarting methadone and clonazepam. will d/w fam regarding trach if he continues to be difficult to sedate. positive balance, readding lasix, discontinueing fluid. 02/21 POCUS done, IVC >2cm with no excursion, severely reduced EF. net positive the past 2 days, doubling lasix dose. back on pressor. follows commands once. once stable will get CT angio to see if he will need intervention. podiatry consult 02/22 b/l UE superficial thrombus, no deep vein thrombus, dc tlc, continue to titrate off pressor, c/w diuresis. daily SAT SBT. i called family but went to . plan for extubation vs trach, possibly without full mental status if doing well during cpap 02/23 seen today, still on sedation. on and off having bradycardia and NSVT. cardio reconsulted today. starting dobutamine, c/w lasix acetazolamide 02/24 adequate diuresis, stion dobu and levo, no increase ectopy. no mental status. called fam member but went to again. consult for trach and peg. 02/27 called franco, he does not want to make medical decision and deferred to anali sister. called anali, consent signed for trach peg. 02/28 surg consult for trach. pt with minimal response, unclear if following commands. will do cpap for exercise but likely proceed with trach and LTACH transfer. 03/01 pending trach today.later patient mental status improved, cpap for 2 hours. 03/02 extubated to cool mist. pending bedside swallow. still on dobu and levo 03/03 add midodrine, replete lytes. comfortable. bedside swallow, start diet, dc methadone, podiatry consult. c/w dobu fixed dose, off pressors, dg to tele w sitter 03/04 we will order official LOTTERY MANAGER eval, we will give Solu-Medrol 20 and further humidified nebulizer treatments and we will reassess RN bedside swallow. Start Clinimix. If patient continues to fail we will have to put NG tube to give psych meds. Currently patient is nonverbal but does follow some commands. Patient is full code, poor prognosis would recommend DNR DNI. 03/05 Continue Clinimix, blood pressure low on 60 Lasix we will decrease Lasix to 40 IV daily. If blood pressure stays low we will try IV bolus 250 LR trial. Keep dobutamine at 2.5 fixed rate. Aspiration precautions. Official LOTTERY MANAGER swallow eval. We will do another bedside RN swallow test. Making good urine output. Heart rate hanging in 70s to 80s. Patient likely has COPD hypercarbia we will decrease oxygen to goal 88-92%. We will not do trial of dobutamine weaning as patient is blood pressure low in map 60s. Patient states nonverbal. 03/06 seen today. transfer to telemetry, dc klonopin and and seroquel. start risperdal. swallow eval, keep ngt in interim. seen by podiatry, no intervention 03/07 sleepy but wakes up to name. holding sedatives except risperdal. attempt swallow while family bedside. dispo planning once able to eat. dc abx tomorrow 03/08 transfered to [facility], more awake, not swallowing, but able to speak and cough 03/09 still not attempting swallowing, starting bolus ng feed called ex nannette, per ex , both sons will make medical decision together, given contact number of son through his boss. Norma Torito [phone] and son is Franco. Explained to Franco (son) regarding trach and peg and need of possible ppm and angiogram. he understands, will discuss with family and get back with a decision tomorrow. Per norma franco to be reached at [phone] and [phone] (gf). franco does not want to make medical decision and defer to sister anali. d/w anali, agrees for trach peg and LTACH placement. physical exam follows command obese cannot appreciate JVD mechanical breath soundsl S1 S2 systolic murmur abdomen distended b/l LE edema w/ chronic venous wounds R foot with multiple gangrene dry and wet drips off labs reviewed acetinobacter, pseudomonas, e faecalis, MRSA in wound cultrue imaging cxr RLL opacity echo LVEF 20%, DCM, MR assessment and plan s/p PEA arrest ROSC 4 mins cardiogenic shock acute on chronic hypoxic RF acute on chronic systolic HF acute metabolic encephalopathy small R PLEF COPD with exacerbation PNA gp vs gn HFrEF 20% DCM transaminitis cirrhosis? ascites? ALEXIS likely VMN lactic acidosis meth use leukocytosis type 2 [place] demand ischemia DM? chronic venous stasis wound with multiple bact L testicular mass? foot gangrene b/l UE superficial thrombosis high degree block NSVT transfer telemetry extubated titrate levophed to maintain MAP >60 c/w diuresis close to euvolemic start risperdal c/w vanc , zosyn switched to layton avoid fever VAP bundle bronchodilators hold GDMT until off pressors send A1C, lipid, tsh wound care daily SAT SBT podiatry consult dc dobutamine keep K 4 Ph 3 Mg 2 Diet hold until passed bedside swallow DVT PPX lovenox GI PPX protonix Lines picc jaffe Full code condition critical prognosis poor Plan discussed with: Patient My Orders Orders - SYEDA VILLALOBOS MD Procedure Category Date Status Time * Poiser CONS 03/08/25 Transmitted Consult Nasal Tracheal Suction RT 03/08/25 Logged 16:[address] 03/09/25 Logged 08:31 Basic Metabolic Panel LAB 03/10/25 Verified 04:00 Complete Blood Count LAB 03/10/25 Verified 04:00 Magnesium LAB 03/10/25 Verified 04:00 Phosphorus LAB 03/10/25 Verified 04:00 Date of Service: Mar 09, 2025 Billing Provider: SYEDA VILLALOBOS MD Common Visit Codes: [id number] INP/OBS CARE(HIGH) SYEDA VILLALOBOS MD Mar 09, 2025 08:34
--- NOTE | 2025-03-09 10:02 | DVH ---
INDICATION: Hypoxia COMPARISON: None TECHNIQUE: CT of the brain without intravenous contrast Radiation Dose Information: CT Dose: CTDI volume is 53 mGy. Dose-length product is 1062 mGy*cm FINDINGS: CT head: There is no evidence of acute intracranial hemorrhage, extra-axial collection, mass effect, midline shift, herniation or hydrocephalus. The ventricles, sulci and cisterns are age appropriate. The zamora-white differentiation is intact. The visualized paranasal sinuses and mastoid air cells are clear. The surrounding soft tissues and osseous structures are unremarkable. Bilateral basal ganglia calcification. Moderate small-vessel ischemic changes of the white matter both cerebral hemispheres. No intracranial hemorrhage or extra-axial fluid collections. Moderate to severe vascular calcification left vertebral artery. Impression: Atrophy Moderate small-vessel ischemic change deep white matter both cerebral hemispheres No intracranial hemorrhage or extra-axial fluid collections No hydrocephalus No evidence of acute intracranial abnormality. All CT scans at this medical facility are performed using dose modulation techniques as appropriate to a performed exam including the following: Automated exposure control was utilized; adjustment of the MA and/or KV according to patient size; and use of iterative reconstruction technique.
[2025-03-09] MEDS: POTASSIUM CHL 20MEQ/100ML 100 ML IV ONE (10:49)
[2025-03-09] MEDS: MAGNESIUM SULFATE 1GM/100ML 100 ML IV ONE (10:50)
[2025-03-09] MEDS ORDERED: DEXTROSE (50%) 50ML SYRG IV SCH (19:30)
[2025-03-09] MEDS: InsuLIN REG 1unit/0.01ml Soln (100units/ml) SC SCH (19:30)
[2025-03-09] MEDS: ACCU-CHEK COMFORT CURVE STRIP VI SCH (19:30)
[2025-03-09] MEDS: ACETAMINOPHEN 325 MG TAB PO PRN (22:17)
--- NOTE | 2025-03-09 22:54 | DVHPN2 ---
Progress Note - Dictate Date Seen: Mar 09, 2025 Has the PT tested + for MRSA If YES, has PT been informed?: No Medical Necessity Reason Pt with a Central, PICC or Fol: Yes The following are medically ne: Central Line, Aguilar Catheter Subjective Patient was seen and evaluated in follow up. Patient downgraded to tele bed. Patient transitioned to room air. CT head shows atrophy and moderate small- vessel ischemic change deep white matter both cerebral hemispheres. No evidence of acute intracranial abnormality. Telemetry reviewed. vital signs Vital Sign Date Time Temp Pulse Resp B/P (MAP) Pulse Ox O2 Delivery O2 Flow Rate FiO2 03/09/25 21:00 92 18 105/64 (78) 96 03/09/25 20:00 Room Air* 0 21 03/09/25 17:06 98.0 98.0 Total Intake and Output 03/08/25 03/08/25 03/09/25 15:00 23:00 07:00 Intake Total 328 ml 1058 ml 928 ml Output Total 1200 ml 575 ml Balance 328 ml -142 ml 353 ml medications Current Medications Medications Dose Ordered Sig/Geraldo Route Start Time Stop Time Status Last Admin Dose Admin Acetaminophen 650 mg Q6HP PRN PO 02/11/25 22:15 03/09/25 22:17 650 MG Aspirin 81 mg DAILY PO 02/12/25 10:00 03/09/25 10:21 81 MG Nicotine 1 patch DAILY TD 02/13/25 10:00 03/09/25 10:22 1 PATCH Pantoprazole Sodium 40 mg DAILY IV 02/17/25 10:00 03/09/25 10:21 40 MG Lactulose 30 ml BID PO 02/17/25 22:00 03/08/25 09:58 30 ML Sodium Chloride 10 ml QSHIFT@10,22 IV 02/21/25 22:00 03/09/25 21:24 10 ML Albuterol 2.5 mg Q6HR NEB 02/24/25 18:00 03/09/25 18:51 2.5 MG Ipratropium [place] 0.5 mg Q6HR NEB 02/24/25 18:00 03/09/25 18:51 0.5 MG Ondansetron HCl 4 mg Q6HPRN PRN IV 02/26/25 22:30 Midodrine 10 mg TID@0600,1200,1800 PO 03/03/25 12:00 03/09/25 16:53 10 MG Enteral Nutritional Formula 240 ml Q6HR GT 03/08/25 12:00 03/09/25 18:50 240 ML Dextrose 50 ml UD IV 03/09/25 19:30 03/13/25 21:59 Diagnostic Test (Pha) 1 strip Q6HR 03/09/25 19:30 03/11/25 21:59 03/09/25 19:30 1 STRIP Insulin Human Regular FOLLOW SLIDING SCALE Q6HR SC 03/09/25 19:30 03/11/25 21:59 objective GENERAL: Ill appearing, Awake. EYES: PERRL, EOMI. Anicteric. HENT: Moist mucous membranes. LUNGS: Decreased breath sounds. CARDIOVASCULAR: Regular rate and rhythm. ABDOMEN: Soft, nontender and nondistended. EXTREMITIES: No edema. SKIN: Warm, dry. laboratory and microbiology Laboratory Tests 03/09/25 05:08 03/07/25 05:34 Test 03/09/25 05:08 Range/Units Serum Glucose 111 H 74-106 mg/dL Problem List S/P PEA arrest. Cardiogenic shock. Acute hypoxic respiratory failure Systolic Heart failure with reduced ejection fraction. NSTEMI. Hypertension. Hyperkalemia. Small R pleural effusion. COPD with exacerbation. PNA. DCM. Transaminitis. ALEXIS. Lactic acidosis. Meth use. Leukocytosis. Type 2 [place] demand ischemia. Chronic venous stasis. Foot gangrene. L/l UE superficial thrombosis. High degree block. NSVT. Assessment/Plan Continued all current supportive medical care. Aspirin. Midodrine. Diuretics with Lasix. GI prophylactics. Additional plan as per the hospital course. Dietary Evaluation Review Comments: CCHO-60 Cardiac diet, texture as tolearated when medically feasible nicotine cessation counseling Follow up with updated lab values Expected Outcomes/Goals: Improved nurition related lab values, free from nicotine Plan discussed with: Patient SHARMILA BENDER MD Mar 09, 2025 22:54
[2025-03-10] VITALS (16 sets, daily range): BP systolic 97–103; BP diastolic 60–71; PULSE 77–104; RESP 16–20; TEMP 97.7–99.2; O2SAT 95–100
[2025-03-10 08:13] LABS: Hematocrit 37.8 % (41.0-53.0); Hemoglobin 12.9 g/dL (13.5-17.5); Mean Corpuscular Hemoglobin 30.3 pg (28.0-32.0); Mean Corpuscular Volume 89.0 fL (80.0-100.0); Nucleated Red Blood Cells % 0.0 %
[2025-03-10 08:24] LABS: Chloride 100 mmol/L (98-107); Potassium 4.2 mmol/L (3.5-5.1)
[2025-03-10 08:25] LABS: Calcium 8.9 mg/dL (8.7-10.4)
[2025-03-10 08:30] LABS: BUN/Creatinine Ratio 23.3 (10.0-20.0); Blood Urea Nitrogen 14 mg/dL (9-23)
[2025-03-10 08:31] LABS: Glucose 123 mg/dL (74-106); Magnesium 1.9 mg/dL (1.6-2.6); Sodium 134 mmol/L (136-145)
[2025-03-10 08:35] LABS: Anion Gap 8 (5-15); Carbon Dioxide 26 mmol/L (20-31)
--- NOTE | 2025-03-10 10:30 | DVHPN2 ---
Subjective DOS: 03/09/2025 Patient seen and examined at bedside. Currently on room air Overnight events reviewed.. Reviewed: Care Plan, H&P, Labs, Medications, Previous Orders, Radiology Changes from previous H/P or p: No Changes General: Per HPI Eyes: No Pain, No Vision change, No Conjunctivae inflammation, No Eyelid inflammation, No Other, No Redness ENT: No Ear pain, No Ear discharge, No Nose pain, No Nose discharge, No Nose congestion, No Mouth pain, No Mouth swelling, No Throat pain, No Throat swelling, No Other Cardiovascular: No Chest Pain, No Palpitations, No Orthopnea, No Paroxysmal Noc. Dyspnea, No Edema, No Lt Headedness, No Other Respiratory: No Cough, No Dry; Shortness of breath, SOB with excertion; No Wheezing, No Hemoptysis, No Pleuritic Pain, No Sputum; Other (SOB at rest) Gastrointestinal: No Nausea, No Vomiting; Abdominal Pain; No Diarrhea, No Constipation, No Melena, No Hematochezia; Other (Abdominal distention) Genitourinary: No Dysuria, No Frequency, No Incontinence, No Hematuria, No Retention, No Other Musculoskeletal: No other, No neck pain, No shoulder pain, No arm pain, No back pain, No hand pain, No leg pain, No foot pain Skin: No Rash, No Lesions, No Jaundice, No Bruising; Other (Lower extremity open wounds) Objective Vitals Vital Signs Date Time Temp Pulse Resp B/P (MAP) Pulse Ox O2 Delivery O2 Flow Rate FiO2 03/10/25 09:00 98.0 104 18 97/66 (76) 97 98.0 03/10/25 07:50 Room Air* 0 21 Intake/Output Intake and Output 03/10/25 07:00 Intake Total 164 ml Output Total 1150 ml Balance -986 ml Intake Oral 0 ml IV Total 164 ml Output Urine Total 1150 ml # Bowel Movements 1 Exam Gen.: Patient lying in bed in no apparent distress. On room air Head: Normocephalic, atraumatic. Eyes: EOMI/PERRLA. Ears: Normal hearing. Normal anatomy. Neck/trachea: Trachea midline, supple. Nose: Normal external anatomy. Mouth: Moist mucous membranes. Chest: Decreased air entry bilaterally. No wheezing or rhonchi. Cardiovascular: Positive S1, positive S2. Regular rate and rhythm. Abdomen: Positive bowel sounds in all 4 quadrants. Soft, non-tender, non- distended. : Deferred. Rectal: Deferred. Skin: Warm, dry. Intact. Extremities: 2+ radial pulses bilaterally. No lower extremity edema. Neuro: Awake, ill appearing. No gross motor or sensory deficits. Cranial nerves II through XII intact. Gait not assessed. HEENT: Atraumatic, PERRLA, EOMI, Mucous membr. moist/pink Neck: Supple Lungs: Clear to auscultation, Normal air movement Cardiovascular: Regular rate, Normal S1, Normal S2, No murmurs, Gallops, Rubs Abdomen: Normal bowel sounds, Soft, No tenderness Medications Current Medications Medications Dose Ordered Sig/Geraldo Route Start Time Stop Time Status Last Admin Dose Admin Acetaminophen 650 mg Q6HP PRN PO 02/11/25 22:15 03/09/25 22:17 650 MG Aspirin 81 mg DAILY PO 02/12/25 10:00 03/09/25 10:21 81 MG Nicotine 1 patch DAILY TD 02/13/25 10:00 03/10/25 10:02 1 PATCH Pantoprazole Sodium 40 mg DAILY IV 02/17/25 10:00 03/10/25 10:02 40 MG Lactulose 30 ml BID PO 02/17/25 22:00 03/08/25 09:58 30 ML Sodium Chloride 10 ml QSHIFT@10,22 IV 02/21/25 22:00 03/10/25 10:02 10 ML Albuterol 2.5 mg Q6HR NEB 02/24/25 18:00 03/10/25 07:50 2.5 MG Ipratropium [place] 0.5 mg Q6HR NEB 02/24/25 18:00 03/10/25 07:50 0.5 MG Ondansetron HCl 4 mg Q6HPRN PRN IV 02/26/25 22:30 Midodrine 10 mg TID@0600,1200,1800 PO 03/03/25 12:00 03/09/25 16:53 10 MG Enteral Nutritional Formula 240 ml Q6HR GT 03/08/25 12:00 03/09/25 23:55 240 ML Dextrose 50 ml UD IV 03/09/25 19:30 03/13/25 21:59 Diagnostic Test (Pha) 1 strip Q6HR 03/09/25 19:30 03/11/25 21:59 03/10/25 06:38 1 STRIP Insulin Human Regular FOLLOW SLIDING SCALE Q6HR SC 03/09/25 19:30 03/11/25 21:59 03/10/25 06:38 2 UNITS Laboratory Results Laboratory Tests 03/10/25 07:40 Chemistry Test 03/10/25 07:40 Calcium Level 8.9 mg/dL (8.7-10.4) Magnesium Level 1.9 mg/dL (1.6-2.6) Phosphorus Level 2.2 mg/dL (2.4-5.1) L Urinalysis Test 02/14/25 11:30 02/19/25 13:50 Urine Protein/Creatinine Ratio 0.26 Urine Total Protein < 6.0 mg/dL (1-14) Urine Osmolality 587 mOsm/kg Urine Creatinine 76.95 mg/dL (30.0-125.0) Urine Sodium 79 mmol/L (40-220) Microbiology Microbiology Date/Time Source Procedure Growth Status 03/01/25 17:30 Pleural Fluid Gram Stain - Final Complete 03/01/25 17:30 Pleural Fluid Body Fluid Culture - Final Complete 02/13/25 08:15 Nose MRSA Screen - Final Complete 02/11/25 19:38 Blood Blood Culture - Final NO GROWTH AFTER 5 DAYS OF INCUBATION. Complete Assessment/Plan Assessment/Plan Impression: Acute hypoxemic respiratory failure Pleural effusion Atelectasis S/p cardiac arrest Cardiomyopathy Congestive heart failure Obesity Events: Patient transitioned to room air. Supplemental oxygen PRN CT head shows atrophy and moderate small-vessel ischemic change deep white matter, both cerebral hemispheres. No evidence of acute intracranial abnormality On 1:1 sitter for safety. No acute overnight events NGT in place. Awaiting Speech and Swallow eval Patient failed prior swallow evaluation. Head of bed elevation Aspiration precautions. Patient remains on his fixed dose of Dobutamine 2.5 mcg/min for inotropic support Off pressors - hemodynamically stable. Continue bronchodilators Midodrine for blood pressure support Clinimix/Tube feeds for nutritional support Wound care. Diurese as tolerated with Lasix Monitor renal function Monitor electrolytes. Supplement as necessary. Labs reviewed; K 3.7, mag of 1.8. Maintain euvolemia S/p right thoracentesis on 03/01/25 - 650 mL fluid removed. Abdomen x-ray shows no e/o bowel obstruction. Labs and imaging reviewed. Rest of plan as noted below. Plan: S/p extubation Supplemental oxygen PRN Titrate to keep O2 sats above 92%. Patient is s/p right thoracentesis. Continue bronchodilators. Completed antibiotics. Monitor WBC count Pressors as necessary for hemodynamic support Titrate to keep mean arterial pressure greater than 65 mmHg. Patient with on and off bradycardia and NSVT On Dobutamine 2.5 mcg/min for inotropic support Plan for pacemaker placement. Echo report reviewed; EF approximately 20% Cardiology recs appreciated. On Protonix Monitor hemoglobin Tube feeds for nutritional support Follow up GI recs Monitor renal function Monitor electrolytes. Supplement as necessary. Monitor ins and outs. Maintain euvolemia. Follow up Podiatry recs GI prophylaxis -Protonix. DVT prophylaxis - Lovenox. Prognosis: Poor given patient's multiple co-morbidities. Rest of plan per hospitalist and other consultants. Thank you, Dr. Blas, for allowing me to participate in this patient's care. Further recommendations will depend on the patient's clinical course. Please do not hesitate to contact me if you have any questions or concerns. This medical document was created using an electronic medical record system with [employer] dictation system. Although these documentations are being carefully reviewed, there may still be some phonetic and typographical changes. The errors are purely typographical, due to imperfection on the software program, and do not reflect any compromise in the patient's medical care. Plan discussed with: Other (RN) Visit Coding Pulmonary Billing Provider: DOLORES VELAZQUEZ MD Date of Service if different f: Mar 09, 2025 Common Visit Codes: [id number] INP/OBS CARE(HIGH) DOLORES VELAZQUEZ MD Mar 10, 2025 10:30
--- NOTE | 2025-03-10 16:16 | DVHPN2 ---
Progress Note - Dictate Date Seen: Mar 10, 2025 Has the PT tested + for MRSA If YES, has PT been informed?: No Medical Necessity Reason Pt with a Central, PICC or Fol: Yes The following are medically ne: Central Line, Aguilar Catheter Subjective Patient was seen and evaluated in follow up. No overnight events. Patient started on a pureed diet, NGT feeds were stopped. CBC is WNL. Telemetry reviewed. vital signs Vital Sign Date Time Temp Pulse Resp B/P (MAP) Pulse Ox O2 Delivery O2 Flow Rate FiO2 03/10/25 12:30 77 16 100 03/10/25 12:24 Room Air 03/10/25 12:24 0 21 03/10/25 09:00 98.0 97/66 (76) 98.0 Total Intake and Output 03/09/25 03/09/25 03/10/25 15:00 23:00 07:00 Intake Total 164 ml 0 ml 0 ml Output Total 550 ml 600 ml Balance 164 ml -550 ml -600 ml medications Current Medications Medications Dose Ordered Sig/Geraldo Route Start Time Stop Time Status Last Admin Dose Admin Acetaminophen 650 mg Q6HP PRN PO 02/11/25 22:15 03/09/25 22:17 650 MG Aspirin 81 mg DAILY PO 02/12/25 10:00 03/10/25 12:05 81 MG Nicotine 1 patch DAILY TD 02/13/25 10:00 03/10/25 10:02 1 PATCH Pantoprazole Sodium 40 mg DAILY IV 02/17/25 10:00 03/10/25 10:02 40 MG Lactulose 30 ml BID PO 02/17/25 22:00 03/10/25 12:05 30 ML Sodium Chloride 10 ml QSHIFT@ IV 02/21/25 22:00 03/10/25 10:02 10 ML Albuterol 2.5 mg Q6HR NEB 02/24/25 18:00 03/10/25 12:23 2.5 MG Ipratropium [place] 0.5 mg Q6HR NEB 02/24/25 18:00 03/10/25 12:23 0.5 MG Ondansetron HCl 4 mg Q6HPRN PRN IV 02/26/25 22:30 Midodrine 10 mg TID@0600,1200,1800 PO 03/03/25 12:00 03/10/25 11:55 10 MG Enteral Nutritional Formula 240 ml Q6HR GT 03/08/25 12:00 03/09/25 23:55 240 ML objective GENERAL: Ill appearing, Awake. EYES: PERRL, EOMI. Anicteric. HENT: Moist mucous membranes. LUNGS: Decreased breath sounds. CARDIOVASCULAR: Regular rate and rhythm. ABDOMEN: Soft, nontender and nondistended. EXTREMITIES: No edema. SKIN: Warm, dry. laboratory and microbiology Laboratory Tests 03/10/25 07:40 Test 03/10/25 07:40 Range/Units Serum Glucose 123 H 74-106 mg/dL Problem List S/P PEA arrest. Cardiogenic shock. Acute hypoxic respiratory failure Systolic Heart failure with reduced ejection fraction. NSTEMI. Hypertension. Hyperkalemia. Small R pleural effusion. COPD with exacerbation. PNA. DCM. Transaminitis. ALEXIS. Lactic acidosis. Meth use. Leukocytosis. Type 2 [place] demand ischemia. Chronic venous stasis. Foot gangrene. L/l UE superficial thrombosis. High degree block. NSVT. Assessment/Plan Continued all current supportive medical care. Aspirin. Midodrine. Diuretics with Lasix. GI prophylactics. Additional plan as per the hospital course. Dietary Evaluation Review Comments: CCHO-60 Cardiac diet, texture as tolearated when medically feasible nicotine cessation counseling Follow up with updated lab values Expected Outcomes/Goals: Improved nurition related lab values, free from nicotine Plan discussed with: Patient SHARMILA BENDER MD Mar 10, 2025 13:15
[2025-03-10] MEDS: Ensure HIGH Protein Chocolate 8oz Bottle PO SCH (18:03)
--- NOTE | 2025-03-10 18:43 | DVHPN2 ---
Progress Note - Dictate Date Seen: Mar 10, 2025 Has the PT tested + for MRSA If YES, has PT been informed?: No Medical Necessity Reason Pt with a Central, PICC or Fol: Yes The following are medically ne: Central Line, Aguilar Catheter Subjective Patient is extubated and downgraded Patient is receiving pureed diet with the assistance He is also on Clinimix Patient is on 1 L nasal cannula Ammonia level at 33 No bowel movement recorded vital signs Vital Sign Date Time Temp Pulse Resp B/P (MAP) Pulse Ox O2 Delivery O2 Flow Rate FiO2 03/10/25 17:00 97.7 86 18 102/67 (79) 96 97.7 03/10/25 12:24 Room Air 03/10/25 12:24 0 21 Total Intake and Output 03/09/25 03/09/25 03/10/25 15:00 23:00 07:00 Intake Total 164 ml 0 ml 0 ml Output Total 550 ml 600 ml Balance 164 ml -550 ml -600 ml medications Current Medications Medications Dose Ordered Sig/Geraldo Route Start Time Stop Time Status Last Admin Dose Admin Acetaminophen 650 mg Q6HP PRN PO 02/11/25 22:15 03/09/25 22:17 650 MG Aspirin 81 mg DAILY PO 02/12/25 10:00 03/10/25 12:05 81 MG Nicotine 1 patch DAILY TD 02/13/25 10:00 03/10/25 10:02 1 PATCH Pantoprazole Sodium 40 mg DAILY IV 02/17/25 10:00 03/10/25 10:02 40 MG Lactulose 30 ml BID PO 02/17/25 22:00 03/10/25 12:05 30 ML Sodium Chloride 10 ml QSHIFT@10,22 IV 02/21/25 22:00 03/10/25 10:02 10 ML Albuterol 2.5 mg Q6HR NEB 02/24/25 18:00 03/10/25 12:23 2.5 MG Ipratropium [place] 0.5 mg Q6HR NEB 02/24/25 18:00 03/10/25 12:23 0.5 MG Ondansetron HCl 4 mg Q6HPRN PRN IV 02/26/25 22:30 Midodrine 10 mg TID@0600,1200,1800 PO 03/03/25 12:00 12/26/25 17:06 10 MG Enteral Nutritional Formula 240 ml TIDWM PO 03/10/25 18:00 03/10/25 18:03 240 ML objective General: Afebrile, palor, mucosae are moist Cardiovascular: Regular S1 and S2. No murmurs, gallops or rubs. No JVD elevation. Pedal edema Respiratory: Decreased bilateral air entry on auscultation, mechanically ventilated Abdomen: Soft, nontender, nondistended, normoactive bowel sounds, no rebound tenderness, no organomegaly, no masses. Purulent vesicles on lower abdomen. Penile swelling. Small clots and Aguilar noted. Bilateral lower extremity, cyanosed, bluish, 2+ pedal edema, minimal pulses, laboratory and microbiology Laboratory Tests 03/10/25 07:40 Test 03/10/25 07:40 Range/Units Serum Glucose 123 H 74-106 mg/dL Problems(with codes): (1) Cyst of epididymis determined by ultrasound (2) Liver disease, chronic (3) Decompensated heart failure (4) Anasarca (5) Lactic acidosis (6) Generalized weakness (7) Acute respiratory failure with hypoxia (8) COPD with acute exacerbation (9) Elevated liver enzymes Prognosis Plan Advance diet as tolerated with the assistance Discontinue IV Clinimix and NG tube feedings Once the patient is able to eat better we will DC his NG tube Patient tends to be a bit combative and has a strong right hook as per the nurse's Sitter at bedside Dietary Evaluation Review Comments: CCHO-60 Cardiac diet, texture as tolearated when medically feasible nicotine cessation counseling Follow up with updated lab values Expected Outcomes/Goals: Improved nurition related lab values, free from nicotine Plan discussed with: Patient, Other (Nurse) NADINE SUTTON MD Mar 10, 2025 18:42
--- NOTE | 2025-03-10 23:29 | DVHDS2 ---
Discharge Summary Date of Admission Feb 11, 2025 at 22:15 Date of Discharge: Mar 11, 2025 Labs/Diagnostic Data: Laboratory Results Test 03/10/25 12:03 03/10/25 07:40 03/09/25 05:08 03/08/25 05:29 POC Glucose 109 mg/dl (70-106) White Blood Count 6.4 10^3/uL (4.4-10.8) Red Blood Count 4.25 10^6/uL (4.5-5.90) Hemoglobin 12.9 g/dL (13.5-17.5) Hematocrit 37.8 % (41.0-53.0) Mean Corpuscular Volume 89.0 fL (80.0-100.0) Mean Corpuscular Hemoglobin 30.3 pg (28.0-32.0) Mean Corpuscular Hemoglobin Concent 34.1 g/dL (32.0-36.0) Red Cell Distribution Width 15.3 % (11.8-14.3) Platelet Count 213 10^3/uL (140-450) Mean Platelet Volume 9.1 fL (6.9-10.8) Neutrophils (%) (Auto) 77.9 % (37.0-80.0) Lymphocytes (%) (Auto) 11.5 % (10.0-50.0) Monocytes (%) (Auto) 8.7 % (0.0-12.0) Eosinophils (%) (Auto) 1.3 % (0.0-7.0) Basophils (%) (Auto) 0.6 % (0.0-2.0) Neutrophils # (Auto) 5.0 10 ^3/uL (1.6-8.6) Lymphocytes # (Auto) 0.7 10 ^3/uL (0.4-5.4) Monocytes # (Auto) 0.6 10 ^3/uL (0-1.3) Eosinophils # (Auto) 0.1 10 ^3/uL (0-0.8) Basophils # (Auto) 0 10 ^3/uL (0-0.2) Nucleated Red Blood Cells 0.0 % Sodium Level 134 mmol/L (136-145) Potassium Level 4.2 mmol/L (3.5-5.1) Chloride Level 100 mmol/L (98-107) Carbon Dioxide Level 26 mmol/L (20-31) Anion Gap 8 (5-15) Blood Urea Nitrogen 14 mg/dL (9-23) Creatinine 0.60 mg/dL (0.700-1.30) Glomerular Filtration Rate Calc 109 mL/min (>90) BUN/Creatinine Ratio 23.3 (10.0-20.0) Serum Glucose 123 mg/dL (74-106) Calcium Level 8.9 mg/dL (8.7-10.4) Phosphorus Level 2.2 mg/dL (2.4-5.1) Magnesium Level 1.9 mg/dL (1.6-2.6) Total Bilirubin 1.0 mg/dL (0.2-1.0) Aspartate Amino Transferase (AST) 39 U/L (13-40) Alanine Aminotransferase (ALT) 20 U/L (7-40) Alkaline Phosphatase 132 U/L (46-116) Total Protein 6.6 g/dL (5.7-8.2) Albumin 3.3 g/dL (3.2-4.8) Ammonia 33 umol/L (11-32) Test 03/05/25 03:29 03/02/25 13:22 03/02/25 07:20 03/01/25 17:30 Triglycerides Level 79 mg/dL (< 150) Blood Gas Specimen Type Arterial Blood Gas Sample Site Right brachial Blood Gas Patient Temperature 37.0 Arterial Blood Date Drawn [id number] Arterial Blood pH 7.462 (7.350-7.450) Arterial Blood Partial Pressure CO2 54.6 mmHg (35.0-48.0) Arterial Blood Partial Pressure O2 75.7 mmHg (83.0-108.0) Arterial Blood HCO3 38.1 mmol/L (21.0-28.0) Arterial Blood Oxygen Saturation 94.6 % (94.0-98.0) Arterial Blood Base Excess 12.1 mmol/L (-2.0-3.0) Arterial Blood Oxyhemoglobin 93.3 % (94.0-98.0) Arterial Blood Carboxyhemoglobin 1.2 % (0.5-1.5) Arterial Blood Methemoglobin 0.2 % (0.0-1.5) Arterial Blood Deoxyhemoglobin 5.3 % (0.0-5.0) Charles Test N/a Blood Gas Total Hemoglobin 14.20 g/dL (13.5-17.5) Blood Gas Liter Flow 2.00 Blood Gas Modality Nasal cannula FiO2 % 28.0 Blood Gas Set Respiration Rate 16.0 Blood Gas Tidal Volume 500.0 Blood Gas PEEP or CPAP 6.0 Body Fluid Source Pleural fluid Body Fluid pH 8.0 Body Fluid WBC (Manual) 220 CUMM (0-200) Body Fluid RBC (Manual) 201 CUMM (0-2000) Body Fluid Mononuclear Cells 80 % Body Fluid Polymorphonuclear Cells 20 % (0-25) Body Fluid Glucose 111 mg/dL (.) Body Fluid Total Protein 3.2 g/dL (.) Body Fluid Lactate Dehydrogenase 172 IU/L (.) Test 03/01/25 12:36 02/28/25 11:32 02/28/25 04:42 02/25/25 07:20 Blood Gas Spontaneous Rate 12 Blood Gas Spontaneous Tidal Volume 572 Blood Gas Pressure Support 8 Prothrombin Time 12.2 sec (9.3-11.8) Prothrombin Time INR 1.17 (0.9-1.15) Activated Partial Thromboplast Time 37.9 SEC (24.5-34.5) Bl Gas Inspiratory/Expiratory Ratio 1:3.5 Specimen Drawn By Crow toscano rt Blood Gas Critical Value Read Back yes Blood Gas Notified Whom brynn collins md Blood Gas Notified Time [id number] Blood Gas Notified By carey madrigal rrt Test 02/23/25 08:52 02/19/25 13:50 02/17/25 03:28 02/16/25 11:35 Vancomycin Level Trough 18.1 ug/mL (5-10) Urine Osmolality 587 mOsm/kg Urine Creatinine 76.95 mg/dL (30.0-125.0) Urine Sodium 79 mmol/L (40-220) Random Vancomycin Level 15.0 ug/mL (5-10) Direct Bilirubin 1.1 mg/dL (<0.3) Test 02/14/25 16:52 02/14/25 11:30 02/14/25 03:31 02/13/25 18:35 Treponema pallidum Antibody Non-reactive (Negative) HIV (1&2) Antibody Negative (Negative) Urine Protein/Creatinine Ratio 0.26 Urine Total Protein < 6.0 mg/dL (1-14) Chlamydia trachomatis (JASBIR) Negative (Negative) Neisseria gonorrhoeae (JASBIR) Negative (Negative) Hemoglobin A1c 5.9 % A1C (<5.7) B-Type Natriuretic Peptide 1266.88 pg/mL (0-100) Cholesterol Level 119 mg/dL (< 200) LDL Cholesterol 80 mg/dL (< 100) HDL Cholesterol 25 mg/dL (40-59) Thyroid Stimulating Hormone (TSH) 0.62 uIU/mL (0.55-4.78) Urine Opiates Screen Neg (NEGATIVE) Urine Fentanyl Screen Pos (NEGATIVE) Urine Barbiturates Screen Neg (NEGATIVE) Urine Phencyclidine Screen Neg (NEGATIVE) Urine Amphetamines Screen Pos (NEGATIVE) Urine Benzodiazepines Screen Pos (NEGATIVE) Urine Cocaine Screen Neg (NEGATIVE) Urine Cannabinoids Screen Neg (NEGATIVE) Test 02/13/25 16:15 02/13/25 12:59 02/13/25 06:15 02/11/25 18:54 Troponin I High Sensitivity 163 ng/L (</=54) Lactic Acid Level 1.6 mmol/L (0.4-2.0) Ferritin 87.6 ng/mL (22-322) Hepatitis A Antibody Total Positive (Negative) Hepatitis B Surface Antigen Negative (Negative) Hepatitis B Surface Antibody Negative (Negative) Hepatitis B Core Total Antibody Negative (Negative) Hepatitis C Antibody Negative (Negative) Venous Blood pH 7.355 (7.320-7.430) Venous Blood pCO2 at Patient Temp 47.3 mmHg (38.0-54.0) Venous Blood pO2 at Patient Temp < 36.5 mmHg (23.0-48.0) Venous Blood HCO3 25.8 mmol/L (22.0-29.0) Venous Blood Base Excess -0.2 mmol/L (-2.0-3.0) Other Laboratory Tests 03/10/25 07:40 Brief Hx & Hospital Course: 64 M with HTN, HFrEF 20%, DM, ascites, meth use admitted for SOB, later was found in respiratory distress, intubated and had PEA arrest, ROSC in 4 minutes. 02/14 s/p thora, 2 L out. switched to lasix drip. start TF. POCUS done, minimal tapable pocket in abdomen. wound culture with prelim growth. wound care 02/15 wound culture back, changed abx to vanc and layton, starting oral meds for weaning, patient previously agitated, to decrease prevent self extubation. lasix drip switched to 60 BID. SAT SBT tomorrow. 02/16 hold diuresis today, POCUS with improving IVC, off sedation, not waking up still. 02/17 adding diamox, metabolic alkalosis, decrease RR, holding methadone and klonazepam, off sedation, opening eyes to name, not following command, c/w SAT SBT. 02/18 off sedation and calm 02/19 continues to remain intubated and off sedation 02/20 agitated, restarting methadone and clonazepam. will d/w fam regarding trach if he continues to be difficult to sedate. positive balance, readding lasix, discontinueing fluid. 02/21 POCUS done, IVC >2cm with no excursion, severely reduced EF. net positive the past 2 days, doubling lasix dose. back on pressor. follows commands once. once stable will get CT angio to see if he will need intervention. podiatry consult 02/22 b/l UE superficial thrombus, no deep vein thrombus, dc tlc, continue to titrate off pressor, c/w diuresis. daily SAT SBT. i called family but went to . plan for extubation vs trach, possibly without full mental status if doing well during cpap 02/23 seen today, still on sedation. on and off having bradycardia and NSVT. cardio reconsulted today. starting dobutamine, c/w lasix acetazolamide 02/24 adequate diuresis, stion dobu and levo, no increase ectopy. no mental status. called fam member but went to again. consult for trach and peg. 02/27 called franco, he does not want to make medical decision and deferred to anali sister. called anali, consent signed for trach peg. 02/28 surg consult for trach. pt with minimal response, unclear if following commands. will do cpap for exercise but likely proceed with trach and LTACH transfer. 03/01 pending trach today.later patient mental status improved, cpap for 2 hours. 03/02 extubated to cool mist. pending bedside swallow. still on dobu and levo 03/03 add midodrine, replete lytes. comfortable. bedside swallow, start diet, dc methadone, podiatry consult. c/w dobu fixed dose, off pressors, dg to tele w sitter 03/04 we will order official RN ACUTE CARE eval, we will give Solu-Medrol 20 and further humidified nebulizer treatments and we will reassess RN bedside swallow. Start Clinimix. If patient continues to fail we will have to put NG tube to give psych meds. Currently patient is nonverbal but does follow some commands. Patient is full code, poor prognosis would recommend DNR DNI. 03/05 Continue Clinimix, blood pressure low on 60 Lasix we will decrease Lasix to 40 IV daily. If blood pressure stays low we will try IV bolus 250 LR trial. Keep dobutamine at 2.5 fixed rate. Aspiration precautions. Official RN ACUTE CARE swallow eval. We will do another bedside RN swallow test. Making good urine output. Heart rate hanging in 70s to 80s. Patient likely has COPD hypercarbia we will decrease oxygen to goal 88-92%. We will not do trial of dobutamine weaning as patient is blood pressure low in map 60s. Patient states nonverbal. 03/06 seen today. transfer to telemetry, dc klonopin and and seroquel. start risperdal. swallow eval, keep ngt in interim. seen by podiatry, no intervention 03/07 sleepy but wakes up to name. holding sedatives except risperdal. attempt swallow while family bedside. dispo planning once able to eat. dc abx tomorrow 03/08 transfered to [facility], more awake, not swallowing, but able to speak and cough 03/09 still not attempting swallowing, starting bolus ng feed 03/10 able to eat, adding nutrition. patient is to be discharged to [facility] for pt rehab. not swallowing seem to be more of a negative symptoms of schizophrenia, recommended hospice. outpatient follow up with psych. Condition at Discharge: Stable Final Diagnosis/Problems List s/p PEA arrest ROSC 4 mins cardiogenic shock acute on chronic hypoxic RF acute on chronic systolic HF acute metabolic encephalopathy small R PLEF COPD with exacerbation PNA gp vs gn HFrEF 20% DCM transaminitis cirrhosis? ascites? ALEXIS likely VMN lactic acidosis meth use leukocytosis type 2 [place] demand ischemia DM? chronic venous stasis wound with multiple bact L testicular mass? foot gangrene b/l UE superficial thrombosis high degree block NSVT schizophrenia Discharge Disposition: [facility] Facility Discharge Statement: "Patient was advised to return to the ER or call 911 if any headaches, dizziness, shortness of breath, chest pain, abdominal pain, bleeding, fevers, or worsening of medical condition. Patient was counseled about treatment plan, medications, possible side effects, patientverbalized understanding. All questions were answered to the best of my ability. This discharge took greater then 30 minutes in planning, reviewing documentation, counseling the patient, and discussing with other team members." ASSESSMENT ASSESSMENT Assessment Date of Service: Mar 10, 2025 Billing Provider: SYEDA VILLALOBOS MD Common Visit Codes: [id number] INP/OBS CARE(HIGH) SYEDA VILLALOBOS MD Mar 10, 2025 23:29
--- NOTE | 2025-03-10 23:54 | DVHPN2 ---
Subjective DOS: 03/10/2025 Patient seen and examined at bedside. Currently on room air Overnight events reviewed.. Reviewed: Care Plan, H&P, Labs, Medications, Previous Orders, Radiology Changes from previous H/P or p: No Changes General: Per HPI Eyes: No Pain, No Vision change, No Conjunctivae inflammation, No Eyelid inflammation, No Other, No Redness ENT: No Ear pain, No Ear discharge, No Nose pain, No Nose discharge, No Nose congestion, No Mouth pain, No Mouth swelling, No Throat pain, No Throat swelling, No Other Cardiovascular: No Chest Pain, No Palpitations, No Orthopnea, No Paroxysmal Noc. Dyspnea, No Edema, No Lt Headedness, No Other Respiratory: No Cough, No Dry; Shortness of breath, SOB with excertion; No Wheezing, No Hemoptysis, No Pleuritic Pain, No Sputum; Other (SOB at rest) Gastrointestinal: No Nausea, No Vomiting; Abdominal Pain; No Diarrhea, No Constipation, No Melena, No Hematochezia; Other (Abdominal distention) Genitourinary: No Dysuria, No Frequency, No Incontinence, No Hematuria, No Retention, No Other Musculoskeletal: No other, No neck pain, No shoulder pain, No arm pain, No back pain, No hand pain, No leg pain, No foot pain Skin: No Rash, No Lesions, No Jaundice, No Bruising; Other (Lower extremity open wounds) Objective Vitals Vital Signs Date Time Temp Pulse Resp B/P (MAP) Pulse Ox O2 Delivery O2 Flow Rate FiO2 03/10/25 20:00 99 03/10/25 20:00 20 97 21 03/10/25 20:00 Room Air* 0 03/10/25 17:00 97.7 102/67 (79) 97.7 Intake/Output Intake and Output 03/10/25 07:00 Intake Total 164 ml Output Total 1150 ml Balance -986 ml Intake Oral 0 ml IV Total 164 ml Output Urine Total 1150 ml # Bowel Movements 1 Exam Gen.: Patient lying in bed in no apparent distress. On room air Head: Normocephalic, atraumatic. Eyes: EOMI/PERRLA. Ears: Normal hearing. Normal anatomy. Neck/trachea: Trachea midline, supple. Nose: Normal external anatomy. Mouth: Moist mucous membranes. Chest: Decreased air entry bilaterally. No wheezing or rhonchi. Cardiovascular: Positive S1, positive S2. Regular rate and rhythm. Abdomen: Positive bowel sounds in all 4 quadrants. Soft, non-tender, non- distended. : Deferred. Rectal: Deferred. Skin: Warm, dry. Intact. Extremities: 2+ radial pulses bilaterally. No lower extremity edema. Neuro: Awake, ill appearing. No gross motor or sensory deficits. Cranial nerves II through XII intact. Gait not assessed. HEENT: Atraumatic, PERRLA, EOMI, Mucous membr. moist/pink Neck: Supple Lungs: Clear to auscultation, Normal air movement Cardiovascular: Regular rate, Normal S1, Normal S2, No murmurs, Gallops, Rubs Abdomen: Normal bowel sounds, Soft, No tenderness Medications Current Medications Medications Dose Ordered Sig/Geraldo Route Start Time Stop Time Status Last Admin Dose Admin Acetaminophen 650 mg Q6HP PRN PO 02/11/25 22:15 03/09/25 22:17 650 MG Aspirin 81 mg DAILY PO 02/12/25 10:00 03/10/25 12:05 81 MG Nicotine 1 patch DAILY TD 02/13/25 10:00 03/10/25 10:02 1 PATCH Pantoprazole Sodium 40 mg DAILY IV 02/17/25 10:00 03/10/25 10:02 40 MG Lactulose 30 ml BID PO 02/17/25 22:00 03/10/25 21:34 30 ML Sodium Chloride 10 ml QSHIFT@10,22 IV 02/21/25 22:00 03/10/25 21:34 10 ML Albuterol 2.5 mg Q6HR NEB 02/24/25 18:00 03/10/25 19:45 2.5 MG Ipratropium [place] 0.5 mg Q6HR NEB 02/24/25 18:00 03/10/25 19:45 0.5 MG Ondansetron HCl 4 mg Q6HPRN PRN IV 02/26/25 22:30 Midodrine 10 mg TID@0600,1200,1800 PO 03/03/25 12:00 03/10/25 17:06 10 MG Enteral Nutritional Formula 240 ml TIDWM PO 03/10/25 18:00 03/10/25 18:03 240 ML Laboratory Results Laboratory Tests 03/10/25 07:40 Chemistry Test 03/10/25 07:40 Calcium Level 8.9 mg/dL (8.7-10.4) Magnesium Level 1.9 mg/dL (1.6-2.6) Phosphorus Level 2.2 mg/dL (2.4-5.1) L Urinalysis Test 02/14/25 11:30 02/19/25 13:50 Urine Protein/Creatinine Ratio 0.26 Urine Total Protein < 6.0 mg/dL (1-14) Urine Osmolality 587 mOsm/kg Urine Creatinine 76.95 mg/dL (30.0-125.0) Urine Sodium 79 mmol/L (40-220) Microbiology Microbiology Date/Time Source Procedure Growth Status 03/01/25 17:30 Pleural Fluid Gram Stain - Final Complete 03/01/25 17:30 Pleural Fluid Body Fluid Culture - Final Complete 02/13/25 08:15 Nose MRSA Screen - Final Complete 02/11/25 19:38 Blood Blood Culture - Final NO GROWTH AFTER 5 DAYS OF INCUBATION. Complete Assessment/Plan Assessment/Plan Impression: Acute hypoxemic respiratory failure Pleural effusion Atelectasis S/p cardiac arrest Cardiomyopathy Congestive heart failure Obesity Events: Patient transitioned to room air. Supplemental oxygen PRN CT head shows atrophy and moderate small-vessel ischemic change deep white matter, both cerebral hemispheres. No evidence of acute intracranial abnormality On 1:1 sitter for safety. No acute overnight events NGT in place. Awaiting Speech and Swallow eval Patient failed prior swallow evaluation. Head of bed elevation Aspiration precautions. Patient remains on his fixed dose of Dobutamine 2.5 mcg/min for inotropic support Off pressors - hemodynamically stable. Continue bronchodilators Midodrine for blood pressure support Lactulose Protonix for GI prophylaxis Ensure for nutritional support Tube feeds for nutritional support Wound care. Diurese as tolerated with Lasix Monitor renal function Monitor electrolytes. Supplement as necessary.. Maintain euvolemia Nicotine replacement therapy S/p right thoracentesis on 03/01/25 - 650 mL fluid removed. Abdomen x-ray shows no e/o bowel obstruction. Labs and imaging reviewed. Rest of plan as noted below. Plan: S/p extubation Supplemental oxygen PRN Titrate to keep O2 sats above 92%. Patient is s/p right thoracentesis. Continue bronchodilators. Completed antibiotics. Monitor WBC count Pressors as necessary for hemodynamic support Titrate to keep mean arterial pressure greater than 65 mmHg. Patient with on and off bradycardia and NSVT On Dobutamine 2.5 mcg/min for inotropic support Plan for pacemaker placement. Echo report reviewed; EF approximately 20% Cardiology recs appreciated. On Protonix Monitor hemoglobin Tube feeds for nutritional support Follow up GI recs Monitor renal function Monitor electrolytes. Supplement as necessary. Monitor ins and outs. Maintain euvolemia. Follow up Podiatry recs GI prophylaxis -Protonix. DVT prophylaxis - Lovenox. Prognosis: Poor given patient's multiple co-morbidities. Rest of plan per hospitalist and other consultants. Thank you, Dr. Blas, for allowing me to participate in this patient's care. Further recommendations will depend on the patient's clinical course. Please do not hesitate to contact me if you have any questions or concerns. This medical document was created using an electronic medical record system with [employer] ([employer] dictation system. Although these documentations are being carefully reviewed, there may still be some phonetic and typographical changes. The errors are purely typographical, due to imperfection on the software program, and do not reflect any compromise in the patient's medical care. Plan discussed with: Patient, Other (LEIGHTON Damian) Visit Coding Pulmonary Billing Provider: DOLORES VELAZQUEZ MD Date of Service if different f: Mar 10, 2025 Common Visit Codes: [id number] INP/OBS CARE(HIGH) DOLORES VELAZQUEZ MD Mar 10, 2025 23:54
[2025-03-11] VITALS (9 sets, daily range): BP systolic 100–104; BP diastolic 71–72; PULSE 61–94; RESP 16–20; TEMP 97–98; O2SAT 93–99
--- NOTE | 2025-03-11 10:40 | DVHPN2 ---
Reviewed: Care Plan, H&P, Labs, Medications, Previous Orders, Radiology Changes from previous H/P or p: No Changes General: Per HPI Eyes: No Pain, No Vision change, No Conjunctivae inflammation, No Eyelid inflammation, No Other, No Redness ENT: No Ear pain, No Ear discharge, No Nose pain, No Nose discharge, No Nose congestion, No Mouth pain, No Mouth swelling, No Throat pain, No Throat swelling, No Other Cardiovascular: No Chest Pain, No Palpitations, No Orthopnea, No Paroxysmal Noc. Dyspnea, No Edema, No Lt Headedness, No Other Respiratory: No Cough, No Dry; Shortness of breath, SOB with excertion; No Wheezing, No Hemoptysis, No Pleuritic Pain, No Sputum; Other (SOB at rest) Gastrointestinal: No Nausea, No Vomiting; Abdominal Pain; No Diarrhea, No Constipation, No Melena, No Hematochezia; Other (Abdominal distention) Genitourinary: No Dysuria, No Frequency, No Incontinence, No Hematuria, No Retention, No Other Musculoskeletal: No other, No neck pain, No shoulder pain, No arm pain, No back pain, No hand pain, No leg pain, No foot pain Skin: No Rash, No Lesions, No Jaundice, No Bruising; Other (Lower extremity open wounds) Objective Vitals Vital Signs Date Time Temp Pulse Resp B/P (MAP) Pulse Ox O2 Delivery O2 Flow Rate FiO2 03/11/25 07:50 Room Air* 0 21 03/11/25 06:02 86 16 97 03/11/25 05:00 97.0 100/71 (81) 97.0 Intake/Output Intake and Output 03/11/25 07:00 Intake Total 0 ml Output Total 550 ml Balance -550 ml Intake Oral 0 ml Output Urine Total 550 ml # Bowel Movements 4 Exam physical exam follows command obese cannot appreciate JVD mechanical breath soundsl S1 S2 systolic murmur abdomen distended b/l LE edema w/ chronic venous wounds R foot with multiple gangrene dry and wet HEENT: Atraumatic, PERRLA, EOMI, Mucous membr. moist/pink Neck: Supple Lungs: Clear to auscultation, Normal air movement Cardiovascular: Regular rate, Normal S1, Normal S2, No murmurs, Gallops, Rubs Abdomen: Normal bowel sounds, Soft, No tenderness Medications Current Medications Medications Dose Ordered Sig/Geraldo Route Start Time Stop Time Status Last Admin Dose Admin Acetaminophen 650 mg Q6HP PRN PO 02/11/25 22:15 03/09/25 22:17 650 MG Aspirin 81 mg DAILY PO 02/12/25 10:00 03/10/25 12:05 81 MG Nicotine 1 patch DAILY TD 02/13/25 10:00 03/11/25 09:39 1 PATCH Pantoprazole Sodium 40 mg DAILY IV 02/17/25 10:00 03/11/25 09:38 40 MG Lactulose 30 ml BID PO 02/17/25 22:00 03/10/25 21:34 30 ML Sodium Chloride 10 ml QSHIFT@10,22 IV 02/21/25 22:00 03/11/25 09:38 10 ML Albuterol 2.5 mg Q6HR NEB 02/24/25 18:00 03/11/25 05:55 2.5 MG Ipratropium [place] 0.5 mg Q6HR NEB 02/24/25 18:00 03/11/25 05:54 0.5 MG Ondansetron HCl 4 mg Q6HPRN PRN IV 02/26/25 22:30 Midodrine 10 mg TID@0600,1200,1800 PO 03/03/25 12:00 03/11/25 05:47 10 MG Enteral Nutritional Formula 240 ml TIDWM PO 03/10/25 18:00 03/11/25 08:28 240 ML Laboratory Results Laboratory Tests 03/10/25 07:40 Urinalysis Test 02/14/25 11:30 02/19/25 13:50 Urine Protein/Creatinine Ratio 0.26 Urine Total Protein < 6.0 mg/dL (1-14) Urine Osmolality 587 mOsm/kg Urine Creatinine 76.95 mg/dL (30.0-125.0) Urine Sodium 79 mmol/L (40-220) Microbiology Microbiology Date/Time Source Procedure Growth Status 03/01/25 17:30 Pleural Fluid Gram Stain - Final Complete 03/01/25 17:30 Pleural Fluid Body Fluid Culture - Final Complete 02/13/25 08:15 Nose MRSA Screen - Final Complete 02/11/25 19:38 Blood Blood Culture - Final NO GROWTH AFTER 5 DAYS OF INCUBATION. Complete Labs and/or images reviewed: Labs reviewed by me, Image(s) reviewed by me Assessment/Plan Assessment/Plan 64 M with HTN, HFrEF 20%, DM, ascites, meth use admitted for SOB, later was found in respiratory distress, intubated and had PEA arrest, ROSC in 4 minutes. 02/14 s/p thora, 2 L out. switched to lasix drip. start TF. POCUS done, minimal tapable pocket in abdomen. wound culture with prelim growth. wound care 02/15 wound culture back, changed abx to vanc and layton, starting oral meds for weaning, patient previously agitated, to decrease prevent self extubation. lasix drip switched to 60 BID. SAT SBT tomorrow. 02/16 hold diuresis today, POCUS with improving IVC, off sedation, not waking up still. 02/17 adding diamox, metabolic alkalosis, decrease RR, holding methadone and klonazepam, off sedation, opening eyes to name, not following command, c/w SAT SBT. 02/18 off sedation and calm 02/19 continues to remain intubated and off sedation 02/20 agitated, restarting methadone and clonazepam. will d/w fam regarding trach if he continues to be difficult to sedate. positive balance, readding lasix, discontinueing fluid. 02/21 POCUS done, IVC >2cm with no excursion, severely reduced EF. net positive the past 2 days, doubling lasix dose. back on pressor. follows commands once. once stable will get CT angio to see if he will need intervention. podiatry consult 02/22 b/l UE superficial thrombus, no deep vein thrombus, dc tlc, continue to titrate off pressor, c/w diuresis. daily SAT SBT. i called family but went to . plan for extubation vs trach, possibly without full mental status if doing well during cpap 02/23 seen today, still on sedation. on and off having bradycardia and NSVT. cardio reconsulted today. starting dobutamine, c/w lasix acetazolamide 02/24 adequate diuresis, stion dobu and levo, no increase ectopy. no mental status. called fam member but went to again. consult for trach and peg. 02/27 called franco, he does not want to make medical decision and deferred to anali sister. called anali, consent signed for trach peg. 02/28 surg consult for trach. pt with minimal response, unclear if following commands. will do cpap for exercise but likely proceed with trach and LTACH transfer. 03/01 pending trach today.later patient mental status improved, cpap for 2 hours. 03/02 extubated to cool mist. pending bedside swallow. still on dobu and levo 03/03 add midodrine, replete lytes. comfortable. bedside swallow, start diet, dc methadone, podiatry consult. c/w dobu fixed dose, off pressors, dg to tele w sitter 03/04 we will order official PSYCHIATRIC TECHNICIAN ASSISTANT eval, we will give Solu-Medrol 20 and further humidified nebulizer treatments and we will reassess RN bedside swallow. Start Clinimix. If patient continues to fail we will have to put NG tube to give psych meds. Currently patient is nonverbal but does follow some commands. Patient is full code, poor prognosis would recommend DNR DNI. 03/05 Continue Clinimix, blood pressure low on 60 Lasix we will decrease Lasix to 40 IV daily. If blood pressure stays low we will try IV bolus 250 LR trial. Keep dobutamine at 2.5 fixed rate. Aspiration precautions. Official PSYCHIATRIC TECHNICIAN ASSISTANT swallow eval. We will do another bedside RN swallow test. Making good urine output. Heart rate hanging in 70s to 80s. Patient likely has COPD hypercarbia we will decrease oxygen to goal 88-92%. We will not do trial of dobutamine weaning as patient is blood pressure low in map 60s. Patient states nonverbal. 03/06 seen today. transfer to telemetry, dc klonopin and and seroquel. start risperdal. swallow eval, keep ngt in interim. seen by podiatry, no intervention 03/07 sleepy but wakes up to name. holding sedatives except risperdal. attempt swallow while family bedside. dispo planning once able to eat. dc abx tomorrow 03/08 transfered to [facility], more awake, not swallowing, but able to speak and cough 03/09 still not attempting swallowing, starting bolus ng feed 03/10 able to eat, adding nutrition. patient is to be discharged to snf for pt rehab. not swallowing seem to be more of a negative symptoms of schizophrenia, recommended hospice. outpatient follow up with psych. 03/11: Continuing discharge plan as per primary team's discharge plan. physical exam follows command obese cannot appreciate JVD mechanical breath soundsl S1 S2 systolic murmur abdomen distended b/l LE edema w/ chronic venous wounds R foot with multiple gangrene dry and wet drips off labs reviewed acetinobacter, pseudomonas, e faecalis, MRSA in wound cultrue imaging cxr RLL opacity echo LVEF 20%, DCM, MR assessment and plan s/p PEA arrest ROSC 4 mins cardiogenic shock acute on chronic hypoxic RF acute on chronic systolic HF acute metabolic encephalopathy small R PLEF COPD with exacerbation PNA gp vs gn HFrEF 20% DCM transaminitis cirrhosis? ascites? ALEXIS likely VMN lactic acidosis meth use leukocytosis type 2 CT demand ischemia DM? chronic venous stasis wound with multiple bact L testicular mass? foot gangrene b/l UE superficial thrombosis high degree block NSVT transfer telemetry extubated titrate levophed to maintain MAP >60 c/w diuresis close to euvolemic start risperdal c/w vanc , zosyn switched to lay[place] avoid fever VAP bundle bronchodilators hold GDMT until off pressors send A1C, lipid, tsh wound care daily SAT SBT podiatry consult dc dobutamine keep K 4 Ph 3 Mg 2 Diet hold until passed bedside swallow DVT PPX lovenox GI PPX protonix Lines picc jaffe Full code Plan discussed with: Patient Date of Service: Mar 11, 2025 Billing Provider: SUJEY BORJA MD Common Visit Codes: [id number] INP/OBS CARE(MOD) SUJEY BORJA MD Mar 11, 2025 10:40
--- NOTE | 2025-03-11 17:52 | DVHPN2 ---
Progress Note - Dictate Date Seen: Mar 11, 2025 Has the PT tested + for MRSA If YES, has PT been informed?: No Medical Necessity Reason Pt with a Central, PICC or Fol: Yes The following are medically ne: Central Line, Aguilar Catheter Subjective Patient was seen and evaluated in follow up. Patient is tolerating diet. Pending discharge to SNF for rehab. Patient denies any cardiac symptoms. Telemetry reviewed. vital signs Vital Sign Date Time Temp Pulse Resp B/P (MAP) Pulse Ox O2 Delivery O2 Flow Rate FiO2 03/11/25 12:50 85 16 99 03/11/25 12:44 Room Air* 0 21 21 03/11/25 05:00 97.0 100/71 (81) 97.0 Total Intake and Output 03/10/25 03/10/25 03/11/25 15:00 23:00 07:00 Intake Total 0 ml 0 ml Output Total 550 ml Balance 0 ml -550 ml medications Current Medications Medications Dose Ordered Sig/Geraldo Route Start Time Stop Time Status Last Admin Dose Admin Acetaminophen 650 mg Q6HP PRN PO 02/11/25 22:15 03/09/25 22:17 650 MG Aspirin 81 mg DAILY PO 02/12/25 10:00 03/11/25 12:37 81 MG Nicotine 1 patch DAILY TD 02/13/25 10:00 03/11/25 09:39 1 PATCH Pantoprazole Sodium 40 mg DAILY IV 02/17/25 10:00 03/11/25 09:38 40 MG Lactulose 30 ml BID PO 02/17/25 22:00 03/11/25 12:38 30 ML Sodium Chloride 10 ml QSHIFT@10,22 IV 02/21/25 22:00 03/11/25 09:38 10 ML Albuterol 2.5 mg Q6HR NEB 02/24/25 18:00 03/11/25 12:44 2.5 MG Ipratropium [place] 0.5 mg Q6HR NEB 02/24/25 18:00 03/11/25 12:44 0.5 MG Ondansetron HCl 4 mg Q6HPRN PRN IV 02/26/25 22:30 Midodrine 10 mg TID@0600,1200,1800 PO 03/03/25 12:00 03/11/25 12:38 10 MG Enteral Nutritional Formula 240 ml TIDWM PO 03/10/25 18:00 03/11/25 12:38 240 ML objective GENERAL: Alert and oriented x 2. No acute distress. EYES: PERRL, EOMI. Anicteric. HENT: Moist mucous membranes. LUNGS: Decreased breath sounds. CARDIOVASCULAR: Regular rate and rhythm. ABDOMEN: Soft, nontender and nondistended. EXTREMITIES: No edema. SKIN: Warm, dry. laboratory and microbiology Laboratory Tests 03/10/25 07:40 Test 03/10/25 07:40 Range/Units Serum Glucose 123 H 74-106 mg/dL Problem List S/P PEA arrest. Cardiogenic shock. Acute hypoxic respiratory failure Systolic Heart failure with reduced ejection fraction. NSTEMI. Hypertension. Hyperkalemia. Small R pleural effusion. COPD with exacerbation. PNA. DCM. Transaminitis. ALEXIS. Lactic acidosis. Meth use. Leukocytosis. Type [address] demand ischemia. Chronic venous stasis. Foot gangrene. L/l UE superficial thrombosis. High degree block. NSVT. Assessment/Plan Continued all current supportive medical care. Aspirin. Midodrine. Diuretics with Lasix. GI prophylactics. Additional plan as per the hospital course. Dietary Evaluation Review Comments: CCHO-60 Cardiac diet, texture as tolearated when medically feasible nicotine cessation counseling Follow up with updated lab values Expected Outcomes/Goals: Improved nurition related lab values, free from nicotine Plan discussed with: Patient SHARMILA BENDER MD Mar 11, 2025 17:52
--- NOTE | 2025-03-11 23:32 | DVHPN2 ---
Subjective DOS: 03/11/2025 Patient seen and examined at bedside. Currently on room air Overnight events reviewed.. Reviewed: Care Plan, H&P, Labs, Medications, Previous Orders, Radiology Changes from previous H/P or p: No Changes General: Per HPI Eyes: No Pain, No Vision change, No Conjunctivae inflammation, No Eyelid inflammation, No Other, No Redness ENT: No Ear pain, No Ear discharge, No Nose pain, No Nose discharge, No Nose congestion, No Mouth pain, No Mouth swelling, No Throat pain, No Throat swelling, No Other Cardiovascular: No Chest Pain, No Palpitations, No Orthopnea, No Paroxysmal Noc. Dyspnea, No Edema, No Lt Headedness, No Other Respiratory: No Cough, No Dry; Shortness of breath, SOB with excertion; No Wheezing, No Hemoptysis, No Pleuritic Pain, No Sputum; Other (SOB at rest) Gastrointestinal: No Nausea, No Vomiting; Abdominal Pain; No Diarrhea, No Constipation, No Melena, No Hematochezia; Other (Abdominal distention) Genitourinary: No Dysuria, No Frequency, No Incontinence, No Hematuria, No Retention, No Other Musculoskeletal: No other, No neck pain, No shoulder pain, No arm pain, No back pain, No hand pain, No leg pain, No foot pain Skin: No Rash, No Lesions, No Jaundice, No Bruising; Other (Lower extremity open wounds) Objective Vitals Vital Signs Date Time Temp Pulse Resp B/P (MAP) Pulse Ox O2 Delivery O2 Flow Rate FiO2 03/11/25 12:50 85 16 99 03/11/25 12:44 Room Air* 0 21 21 03/11/25 05:00 97.0 100/71 (81) 97.0 Intake/Output Intake and Output 03/11/25 07:00 Intake Total 0 ml Output Total 550 ml Balance -550 ml Intake Oral 0 ml Output Urine Total 550 ml # Bowel Movements 4 Exam Gen.: Patient lying in bed in no apparent distress. On room air Head: Normocephalic, atraumatic. Eyes: EOMI/PERRLA. Ears: Normal hearing. Normal anatomy. Neck/trachea: Trachea midline, supple. Nose: Normal external anatomy. Mouth: Moist mucous membranes. Chest: Decreased air entry bilaterally. No wheezing or rhonchi. Cardiovascular: Positive S1, positive S2. Regular rate and rhythm. Abdomen: Positive bowel sounds in all 4 quadrants. Soft, non-tender, non- distended. : Deferred. Rectal: Deferred. Skin: Warm, dry. Intact. Extremities: 2+ radial pulses bilaterally. No lower extremity edema. Neuro: Awake, ill appearing. No gross motor or sensory deficits. Cranial nerves II through XII intact. Gait not assessed. HEENT: Atraumatic, PERRLA, EOMI, Mucous membr. moist/pink Neck: Supple Lungs: Clear to auscultation, Normal air movement Cardiovascular: Regular rate, Normal S1, Normal S2, No murmurs, Gallops, Rubs Abdomen: Normal bowel sounds, Soft, No tenderness Laboratory Results Laboratory Tests 03/10/25 07:40 Urinalysis Test 02/14/25 11:30 02/19/25 13:50 Urine Protein/Creatinine Ratio 0.26 Urine Total Protein < 6.0 mg/dL (1-14) Urine Osmolality 587 mOsm/kg Urine Creatinine 76.95 mg/dL (30.0-125.0) Urine Sodium 79 mmol/L (40-220) Microbiology Microbiology Date/Time Source Procedure Growth Status 03/01/25 17:30 Pleural Fluid Gram Stain - Final Complete 03/01/25 17:30 Pleural Fluid Body Fluid Culture - Final Complete 02/13/25 08:15 Nose MRSA Screen - Final Complete 02/11/25 19:38 Blood Blood Culture - Final NO GROWTH AFTER 5 DAYS OF INCUBATION. Complete Assessment/Plan Assessment/Plan Impression: Acute hypoxemic respiratory failure Pleural effusion Atelectasis S/p cardiac arrest Cardiomyopathy Congestive heart failure Obesity Events: Patient remains on room air. Supplemental oxygen PRN CT head shows atrophy and moderate small-vessel ischemic change deep white matter, both cerebral hemispheres. No evidence of acute intracranial abnormality On 1:1 sitter for safety. No acute overnight events Patient is tolerating diet Head of bed elevation Aspiration precautions. Pending discharge to SNF for rehab. Patient remains on his fixed dose of Dobutamine 2.5 mcg/min for inotropic support Off pressors - hemodynamically stable. Continue bronchodilators Midodrine for blood pressure support Lactulose Protonix for GI prophylaxis Ensure for nutritional support NGT in place. Tube feeds for nutritional support Wound care. Diurese as tolerated with Lasix Monitor renal function Monitor electrolytes. Supplement as necessary.. Maintain euvolemia Nicotine replacement therapy S/p right thoracentesis on 03/01/25 - 650 mL fluid removed. Continue to monitor for pleural fluid re-accumulation Abdomen x-ray shows no e/o bowel obstruction. Labs and imaging reviewed. Rest of plan as noted below. Plan: S/p extubation Supplemental oxygen PRN Titrate to keep O2 sats above 92%. Patient is s/p right thoracentesis. Continue bronchodilators. Completed antibiotics. Monitor WBC count Pressors as necessary for hemodynamic support Titrate to keep mean arterial pressure greater than 65 mmHg. Patient with on and off bradycardia and NSVT On Dobutamine 2.5 mcg/min for inotropic support Plan for pacemaker placement. Echo report reviewed; EF approximately 20% Cardiology recs appreciated. On Protonix Monitor hemoglobin Tube feeds for nutritional support Follow up GI recs Monitor renal function Monitor electrolytes. Supplement as necessary. Monitor ins and outs. Maintain euvolemia. Follow up Podiatry recs GI prophylaxis -Protonix. DVT prophylaxis - Lovenox. Prognosis: Poor given patient's multiple co-morbidities. Rest of plan per hospitalist and other consultants. Thank you, Dr. Blas, for allowing me to participate in this patient's care. Further recommendations will depend on the patient's clinical course. Please do not hesitate to contact me if you have any questions or concerns. This medical document was created using an electronic medical record system with 5app dictation system. Although these documentations are being carefully reviewed, there may still be some phonetic and typographical changes. The errors are purely typographical, due to imperfection on the software program, and do not reflect any compromise in the patient's medical care. Plan discussed with: Patient, Other (RN) Visit Coding Pulmonary Billing Provider: DOLORES VELAZQUEZ MD Date of Service if different f: Mar 11, 2025 Common Visit Codes: [id number] INP/OBS CARE(HIGH) DOLORES VELAZQUEZ MD Mar 11, 2025 23:32
== END 2025-03-11 17:05 | DRG 130 ==
LOC: ER 18:01 → EDBD 18:01 → OVERFLOW 22:15 → ICU WEST 02-13 08:02 → DOU 03-06 17:09 → TELE-CENTR 03-09 12:31
PROVIDERS: ADMIT Student in an Organized Health Care Education/Training Program; ATTEND Student in an Organized Health Care Education/Training Program
PROC: 5A12012 Performance of Cardiac Output, Single, Manual (ICD-10-PCS; principal; 2025-02-13)
PROC: 5A1955Z Respiratory Ventilation, Greater than 96 Consecutive Hours (ICD-10-PCS; 2025-02-13)
PROC: 0BH17EZ Insertion of Endotracheal Airway into Trachea, Via Natural or Artificial Opening (ICD-10-PCS; 2025-02-13)
PROC: 5A09357 Assistance with Respiratory Ventilation, Less than 24 Consecutive Hours, Continuous Positive Airway Pressure (ICD-10-PCS; 2025-02-13)
PROC: 0W993ZZ Drainage of Right Pleural Cavity, Percutaneous Approach (ICD-10-PCS; 2025-02-14)
PROC: 02HV33Z Insertion of Infusion Device into Superior Vena Cava, Percutaneous Approach (ICD-10-PCS; 2025-02-21)
PROC: B548ZZA Ultrasonography of Superior Vena Cava, Guidance (ICD-10-PCS; 2025-02-21)
PROC: 0W993ZZ Drainage of Right Pleural Cavity, Percutaneous Approach (ICD-10-PCS; 2025-03-01)
PROC: 02HV33Z Insertion of Infusion Device into Superior Vena Cava, Percutaneous Approach (ICD-10-PCS; 2025-03-04)
PROC: B548ZZA Ultrasonography of Superior Vena Cava, Guidance (ICD-10-PCS; 2025-03-04)
DX: J96.21 Acute and chronic respiratory failure with hypoxia (principal); R57.0 Cardiogenic shock; G93.41 Metabolic encephalopathy; E43 Unspecified severe protein-calorie malnutrition; J15.69 Pneumonia due to other Gram-negative bacteria; I50.23 Acute on chronic systolic (congestive) heart failure; E11.52 Type 2 diabetes mellitus with diabetic peripheral angiopathy with gangrene; J44.0 Chronic obstructive pulmonary disease with (acute) lower respiratory infection; J15.9 Unspecified bacterial pneumonia; I46.9 Cardiac arrest, cause unspecified; J91.8 Pleural effusion in other conditions classified elsewhere; I13.0 Hypertensive heart and chronic kidney disease with heart failure and stage 1 through stage 4 chronic kidney disease, or unspecified chronic kidney disease; E66.9 Obesity, unspecified; K74.60 Unspecified cirrhosis of liver; F20.9 Schizophrenia, unspecified; N18.30 Chronic kidney disease, stage 3 unspecified; F15.20 Other stimulant dependence, uncomplicated; E87.20 Acidosis, unspecified; I47.20 Ventricular tachycardia, unspecified; J44.1 Chronic obstructive pulmonary disease with (acute) exacerbation; E11.22 Type 2 diabetes mellitus with diabetic chronic kidney disease; I21.A1 Myocardial infarction type 2; J98.4 Other disorders of lung; I87.8 Other specified disorders of veins; E86.0 Dehydration; E87.5 Hyperkalemia; E87.6 Hypokalemia; I42.0 Dilated cardiomyopathy; J98.11 Atelectasis; N50.3 Cyst of epididymis; E87.3 Alkalosis; I44.30 Unspecified atrioventricular block; R18.8 Other ascites; E87.1 Hypo-osmolality and hyponatremia; Z68.20 Body mass index [BMI] 20.0-20.9, adult; Z79.84 Long term (current) use of oral hypoglycemic drugs
CPT/HCPCS: 32555; 36415; 36556; 36569; 36600; 70450; 71045; 74018; 76705; 76775; 76870; 76937; 80048; 80053; 80061; 80076; 80202; 80307; 82140; 82570; 82728; 82805; 82962; 83036; 83605; 83735; 83880; 83935; 83986; 84100; 84132; 84156; 84300; 84443; 84478; 84484; 85025; 85610; 85730; 86703; 86704; 86706; 86708; 86780; 86803; 86850; 86900; 86901; 87040; 87070; 87071; 87077; 87081; 87186; 87205; 87340; 88341; 89051; 92610; 93005; 93306; 93925; 93970; 94002; 94003; 94640; 94660; 96365; 96375; 97110; 97163; 97530; 99291; G0378; J1265; J1815; J2003; J2185; J2470; J2543; J2704; J3480; J3490; J7060; P9047